=== PATIENT | female | born 1990 | race African-American/Black ===

== ENCOUNTER 2018-05-08 00:57 | Emergency (ER) | payer OTHER ==
[2018-05-08] MEDS ORDERED: METHYLPREDNISOLONE 125 MG INJ ONE (02:09)
--- NOTE | 2018-05-08 02:46 | ER ---
Nurse's Notes [facility] Name: Arianne Mendez Age: 28 yrs Sex: Female : 1990 Arrival Date: 05/08/2018 Time: 00:58 Bed 13 Private MD: Reilly Potts Diagnosis: Chest pain, unspecified Presentation: 05/08 01:08 Presenting complaint: Patient states: I have lupus and I'm hurting all over and have tl2 chest pain that started today. Transition of care: patient was not received from another setting of care. Onset of symptoms was May 07, 2018. Risk Assessment: Do you want to hurt yourself or someone else? Patient reports no desire to harm self or others. Initial Sepsis Screen: Does the patient meet any 2 criteria? No. Patient's initial sepsis screen is negative. Does the patient have a suspected source of infection? No. Patient's initial sepsis screen is negative. Care prior to arrival: None. 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 - Social history:: Smoking status: Patient/guardian denies using tobacco. - Ebola Screening: : No symptoms or risks identified at this time. Screenin:12 Abuse screen: Denies threats or abuse. Nutritional screening: No deficits noted. tl2 Tuberculosis screening: No symptoms or risk factors identified. Fall Risk None identified. Assessment: 01:26 Also complains of no other symptoms. General: Appears in no apparent distress. tl1 uncomfortable, Behavior is calm, cooperative, appropriate for age. Pain: Complains of pain in anterior aspect of left upper chest Pain does not radiate. Pain began 1 day ago. Is intermittent. Neuro: Level of Consciousness is awake, alert, obeys commands, Oriented to person, place, time, situation. Cardiovascular: Reports chest pain, Denies lightheadedness, nausea, palpitations, shortness of breath, syncope, vomiting. Respiratory: Airway is patent Trachea midline Respiratory effort is even, unlabored, Breath sounds are clear bilaterally. GI: No signs and/or symptoms were reported involving the gastrointestinal system. Abdomen is non-distended, Bowel sounds present X 4 quads. : No signs and/or symptoms were reported regarding the genitourinary system. Musculoskeletal: Reports pain in generalized. 03:35 Reassessment: No changes from previously documented assessment. Patient and/or family tl1 updated on plan of care and expected duration. Pain level reassessed. Patient is alert, oriented x 3, equal unlabored respirations, skin warm/dry/pink. Patient states symptoms have not improved. Pt requested pain medication, ER physician notified; no new orders received prior to discharge. 03:38 Reassessment: Pt asked to speak with charge nurse regarding ER physician. Charge nurse tl1 spoke with patient and patients mother prior to discharge. Patient will follow up with ER director with any further complaints. Vital Signs: 01:11 BP 127 / 80; Pulse 95; Resp 18; Pulse Ox 99% on R/A; Weight 90.72 kg; Height 5 ft. 3 tl2 in. (160.02 cm); Pain 8/10; 02:08 BP 121 / 74; Pulse 80; Resp 16; Pulse Ox 99% on R/A; tl1 02:57 BP 119 / 71; Pulse 93; Resp 19; Temp 98.2; Pulse Ox 99% on R/A; Pain 8/10; tl1 01:11 Body Mass Index 35.43 (90.72 kg, 160.02 cm) tl2 ED Course: 00:58 Patient arrived in ED. ds1 00:58 Reilly Potts DO is Private Physician. ds1 01:09 Triage completed. tl2 01:11 Arm band placed on right wrist. tl2 01:12 Patient has correct armband on for positive identification. Placed in gown. Bed in low tl2 position. Call light in reach. Pulse ox on. NIBP on. 01:14 Daquan Beavers MD is Attending Physician. gs 01:24 Davina Gilman RN is Primary Nurse. tl1 01:24 No provider procedures requiring assistance completed. Inserted saline lock: 22 gauge tl1 in right antecubital area, using aseptic technique. Blood collected. Patient maintains SpO2 saturation greater than 95% on room air. 02:27 X-ray completed. Patient tolerated procedure well. 1 02:27 Patient moved to radiology via wheelchair. 1 02:28 Patient moved back from radiology. 1 02:29 XRAY Chest Pa And Lat (2 Views) In Process Unspecified. EDMS 03:37 IV discontinued, intact, bleeding controlled, No redness/swelling at site. Pressure tl1 dressing applied. Administered Medications: 02:05 Drug: SOLU-Medrol 60 mg Route: IVP; Site: right antecubital; tl2 03:38 Follow up: Response: No adverse reaction; No change in condition tl1 Outcome: 02:45 Discharge ordered by . 03:36 Discharged to home via wheelchair, with family. tl1 03:36 Condition: stable 03:36 Discharge instructions given to patient, family, Instructed on discharge instructions, follow up and referral plans. medication usage, Demonstrated understanding of instructions, follow-up care, medications, Prescriptions given X 1. 03:41 Patient left the ED. tl1 Signatures: Dispatcher [employer] EDMS Brandie Zepeda 1 Jennifer Kim 1 Davina Gilman RN RN tl1 Soraya Aranda RN RN tl2 Daquan Beavers MD MD
--- NOTE | 2018-05-08 02:46 | EDPHYS ---
Physician Documentation [facility] Name: Arianne Mendez Age: 28 yrs Sex: Female : 1990 Arrival Date: 05/08/2018 Time: 00:58 Bed 13 Private MD: Reilly Potts ED Physician Daquan Beavers HPI: 05/08 02:40 This 28 yrs old Black Female presents to ER via Ambulatory with complaints of Chest gs Pain, Lupus flare up. 02:40 The patient or guardian reports chest pain that is located primarily in the anterior gs chest wall, bilaterally. The pain does not radiate. Associated signs and symptoms: Pertinent negatives: abdominal pain, diaphoresis, near syncope, palpitations, shortness of breath, vomiting. The chest pain is described as sharp. Duration: The patient or guardian reports multiple episodes, that are intermittent, that wax and wane, with no pattern. Modifying factors: the symptoms are aggravated by movement, twisting torso. Severity of pain: At its worst the pain was mild in the emergency department the pain is unchanged. The patient has experienced similar episodes in the past, multiple times. 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 - Social history:: Smoking status: Patient/guardian denies using tobacco. - Ebola Screening: : No symptoms or risks identified at this time. ROS: 02:40 All other systems are negative. gs Exam: 02:40 Head/Face: Normocephalic, atraumatic. Eyes: Pupils equal round and reactive to light, gs extra-ocular motions intact. Lids and lashes normal. Conjunctiva and sclera are non-icteric and not injected. Cornea within normal limits. Periorbital areas with no swelling, redness, or edema. ENT: Nares patent. No nasal discharge, no septal abnormalities noted. Tympanic membranes are normal and external auditory canals are clear. Oropharynx with no redness, swelling, or masses, exudates, or evidence of obstruction, uvula midline. Mucous membranes moist. Neck: Trachea midline, no thyromegaly or masses palpated, and no cervical lymphadenopathy. Supple, full range of motion without nuchal rigidity, or vertebral point tenderness. No Meningismus. Chest/axilla: Normal chest wall appearance and motion. Nontender with no deformity. No lesions are appreciated. Cardiovascular: Regular rate and rhythm with a normal S1 and S2. No gallops, murmurs, or rubs. Normal PMI, no JVD. No pulse deficits. Respiratory: Lungs have equal breath sounds bilaterally, clear to auscultation and percussion. No rales, rhonchi or wheezes noted. No increased work of breathing, no retractions or nasal flaring. Abdomen/GI: Soft, non-tender, with normal bowel sounds. No distension or tympany. No guarding or rebound. No evidence of tenderness throughout. Back: No spinal tenderness. No costovertebral tenderness. Full range of motion. Skin: Warm, dry with normal turgor. Normal color with no rashes, no lesions, and no evidence of cellulitis. MS/ Extremity: Pulses equal, no cyanosis. Neurovascular intact. Full, normal range of motion. Neuro: Awake and alert, GCS 15, oriented to person, place, time, and situation. Cranial nerves II-XII grossly intact. Motor strength 5/5 in all extremities. Sensory grossly intact. Cerebellar exam normal. Normal gait. 02:40 Constitutional: The patient appears alert, awake. 02:40 ECG was reviewed by the Attending Physician. Vital Signs: 01:11 BP 127 / 80; Pulse 95; Resp 18; Pulse Ox 99% on R/A; Weight 90.72 kg; Height 5 ft. 3 tl2 in. (160.02 cm); Pain 8/10; 02:08 BP 121 / 74; Pulse 80; Resp 16; Pulse Ox 99% on R/A; tl1 02:57 BP 119 / 71; Pulse 93; Resp 19; Temp 98.2; Pulse Ox 99% on R/A; Pain 8/10; tl1 01:11 Body Mass Index 35.43 (90.72 kg, 160.02 cm) tl2 MDM: 02:00 Patient medically screened. gs 02:40 Differential diagnosis: chest wall pain. Differential diagnosis: pleurisy, lupus flare. gs Data reviewed: vital signs, nurses notes. Counseling: I had a detailed discussion with the patient and/or guardian regarding: the historical points, exam findings, and any diagnostic results supporting the discharge/admit diagnosis, the need for outpatient follow up. 05/08 02:01 Order name: XRAY Chest Pa And Lat (2 Views) 05/08 01:14 Order name: EKG; Complete Time: 01:14 05/08 01:14 Order name: EKG - Nurse/Tech; Complete Time: :25 EC:40 Rate is 86 beats/min. Rhythm is regular. [place] interval is normal. QRS interval is normal. gs T waves are Normal. No ST changes noted. Clinical impression: Abnormal EKG without significant change. Interpreted by me. Administered Medications: 02:05 Drug: SOLU-Medrol 60 mg Route: IVP; Site: right antecubital; tl2 03:38 Follow up: Response: No adverse reaction; No change in condition tl1 Disposition: 05/08/18 02:45 Discharged to Home. Impression: Chest pain, unspecified. - Condition is Stable. - Discharge Instructions: Nonspecific Chest Pain. - Prescriptions for Prednisone 20 mg Oral Tablet - take 1 tablet by ORAL route once daily for 5 days; 5 tablet. - Medication Reconciliation Form, Thank You Letter, Antibiotic Education, Prescription Opioid Use form. - Follow up: Private Physician; When: 2 - 3 days; Reason: Re-evaluation by your physician. Signatures: Dispatcher [employer] EDDavina Pickard RN RN tl1 Soraya Aranda RN RN tl2 Daquan Beavers MD MD Corrections: (The following items were deleted from the chart) 03:41 02:45 05/08/2018 02:45 Discharged to Home. Impression: Chest pain, unspecified. tl1 Condition is Stable. Forms are Medication Reconciliation Form, Thank You Letter, Antibiotic Education, Prescription Opioid Use. Follow up: Private Physician; When: 2 - 3 days; Reason: Re-evaluation by your physician.
[2018-05-08 03:53] VITALS: O2SAT 99
[2018-05-08 03:55] VITALS: BP 119/71; TEMP 98.2
--- NOTE | 2018-05-08 08:31 | RAD REPORT ---
EXAM DESCRIPTION: RAD - Chest Pa And Lat (2 Views) - 05/08/2018 2:32 am CLINICAL HISTORY: Chest pain, diffuse body pain, lupus COMPARISON: November 2015 chest exam TECHNIQUE: PA and lateral views of the chest were obtained. FINDINGS: The lungs are underinflated. Lung base atelectasis is present. Lung markings are accentuat ed by the shallow inspiration. Minimal interstitial edema or infiltrate could be masked. Mild failure could be masked. Heart size and vasculature within normal limits for the shallow inspiration. No p leural effusion or pneumothorax seen. No acute bony finding noted. No aortic abnormality. IMPRESSION: Shallow inspiration film showing bilateral lung base atelectasis. Mild interstitial edgar a or infiltrate can be masked in this setting.
--- NOTE | 2018-05-09 06:54 | EKG ---
Test Date: 2018-05-08 Test Time: 01:14:30 Patient Liaison: TL MEASUREMENT RESULTS: Intervals: Rate: 86 HI: 144 QRSD: 70 QT: 356 QTc: 426 [place]: P: 27 HI: 144 QRS: 26 T: 60 INTERPRETIVE STATEMENTS: Normal sinus rhythm Possible Left atrial enlargement Borderline ECG Compared to ECG 12/06/2015 18:56:02 No significant changes Electronically Signed On 05-09-18 06:51:21 CDT by Gage Christy
== END 2018-05-08 03:41 | disposition home or self-care (01) ==
LOC: ER 00:57
DX: R07.9 Chest pain, unspecified (principal); Z88.6 Allergy status to analgesic agent
CPT/HCPCS: 71046; 93005; 96374; 99284; J2930

== ENCOUNTER 2020-06-25 07:42 | Emergency (ER) | payer BC ==
--- OUTSIDE RECORDS SUMMARY | 2020-06-25 07:44 | XMS REPORT | Continuity of Care Document ---
:1990 Author Organization [facility] t Address [address] [place] [address] Care Team Providers Name Role Phone Pob, Lab Main Attending Clinician Unavailable Doctor Unassigned, Name Attending Clinician Unavailable Problems This patient has no known problems. Allergies, Adverse Reactions, Alerts This patient has no known allergies or adverse reactions. Medications This patient has no known medications. Procedures This patient has no known procedures. Encounters Start End Encounter Admission Attending Care Care Encounter Source Date/Time Date/Time Type Type Clinicians Facility Department ID 2020-02-07 2020-02-07 Life Claims Examiner Diya Lombardi [id number] 17:26:43 17:41:43 Visit Lab Main [place] [id number] [place] [id number] [place] [id number] [address] 2020-02-07 2020-02-07 Orders Doctor KEY [id number] 00:00:00 00:00:00 Only Unassigned, ZAN [id number] [place] [facility] [id number] 2019-11-02 2019-11-02 Life Claims Examiner Diya Lombardi [id number] 10:22:24 10:37:24 Visit Lab Main [place] [id number] [place] [id number] [place] [id number] [address] 2019-11-02 2019-11-02 Orders Doctor SHAHID [id number] 00:00:00 00:00:00 Only Unassigned, ZAN [id number] [place] [facility] [id number] Results This patient has no known results.
[2020-06-25 09:08] LABS: Absolute Lymphocytes (CBC) 1.6 K/uL (0.7-4.9); Basophils % 1.2 % (0-1.3); Hematocrit 33.7 % (36.0-45.0); Lymphocytes % 23.1 % (15.3-44.8); MPV 7.7 fL (7.6-11.3); RBC Red Blood Cell Count 4.95 M/uL (3.86-4.86)
[2020-06-25 09:17] LABS: BUN Blood Urea Nitrogen 12 mg/dL (7-18); Bicarbonate 26 mmol/L (21-32); Glucose Level 81 mg/dL (74-106); Sodium Level 141 mmol/L (136-145); Troponin (Emerg Dept Use Only) < 0.02 ng/mL (0.0-0.045)
[2020-06-25 10:25] LABS: Anisocytosis SLIGHT; Blood Morphology Comment NOTED (NOT SEEN); Hypochromasia 1+; Platelet Estimate ADEQ
--- NOTE | 2020-06-25 10:25 | ER ---
Nurse's Notes [facility] Name: Arianne Mendez Age: 30 yrs Sex: Female : 1990 Arrival Date: 06/25/2020 Time: 07:44 Bed 19 Private MD: Diagnosis: Hypertension Presentation: 06/25 07:54 Chief complaint: Patient states: pt states that she has been experience headaches and zb photosensitivity for the past couple of days. Her blood pressure has been elevated in the 150's systolic. hx of lupus and hypertension. denies n/v/d or chest pain. Coronavirus screen: At this time, the client does not indicate any symptoms associated with coronavirus-19. Ebola Screen: No symptoms or risks identified at this time. Initial Sepsis Screen: Does the patient meet any 2 criteria? No. Patient's initial sepsis screen is negative. Does the patient have a suspected source of infection? No. Patient's initial sepsis screen is negative. Risk Assessment: Do you want to hurt yourself or someone else? Patient reports no desire to harm self or others. Onset of symptoms was June 23, 2020. 07:54 Method Of Arrival: Ambulatory zb 07:54 Acuity: MADY 4 zb 08:14 Acuity: MADY 3 ph Triage Assessment: 08:10 General: Appears in no apparent distress. comfortable, Behavior is calm, cooperative, zb appropriate for age, Denies fever, feeling ill. Pain: Complains of pain in top of head Quality of pain is described as aching. EENT: No signs and/or symptoms were reported regarding the EENT system. Neuro: No deficits noted. Level of Consciousness is awake, alert, obeys commands, Oriented to person, place, time, situation. Cardiovascular: No deficits noted. Reports fatigue, Denies chest pain, diaphoresis, lightheadedness, nausea, palpitations, shortness of breath, syncope, vomiting. Respiratory: No deficits noted. Airway is patent Trachea midline Respiratory effort is even, unlabored, Respiratory pattern is regular. GI: No deficits noted. Abdomen is round. : No deficits noted. No signs and/or symptoms were reported regarding the genitourinary system. Derm: Skin is intact, Skin is pink, warm \T\ dry. Musculoskeletal: No deficits noted. Circulation, motion, and sensation intact. Historical: - Allergies: 08:08 Toradol; zb - Home Meds: 08:08 carvedilol 12.5 mg oral tab 2 times per day [Active]; zb - PMHx: 08:08 Lupus; zb - Immunization history:: Adult Immunizations up to date. - Social history:: Smoking status: Patient denies any tobacco usage or history of. - Family history:: not pertinent. - Hospitalizations: : No recent hospitalization is reported. Screenin:51 Abuse screen: Denies threats or abuse. Denies injuries from another. Nutritional zb screening: No deficits noted. Tuberculosis screening: Risk factors: None. Fall Risk None identified. Assessment: 08:10 Reassessment: no changes to triage note. zb 09:59 Reassessment: Patient appears in no apparent distress at this time. Patient and/or ph family updated on plan of care and expected duration. Pain level reassessed. Patient is alert, oriented x 3, equal unlabored respirations, skin warm/dry/pink. 10:33 Reassessment: Patient appears in no apparent distress at this time. Patient and/or ph family updated on plan of care and expected duration. Pain level reassessed. Patient is alert, oriented x 3, equal unlabored respirations, skin warm/dry/pink. Vital Signs: 07:54 BP 149 / 97; Pulse 108; Resp 18; Temp 97.7(O); Pulse Ox 100% on R/A; Weight 106.59 kg; zb Height 5 ft. 3 in. (160.02 cm); 08:49 BP 120 / 82; Pulse 83; Resp 18; Pulse Ox 100% on R/A; zb 09:59 BP 113 / 83; Pulse 89; Resp 18; Pulse Ox 100% on R/A; ph 10:33 BP 111 / 67; Pulse 88; Resp 16; Pulse Ox 100% on R/A; ph 07:54 Body Mass Index 41.63 (106.59 kg, 160.02 cm) zb ED Course: 07:44 Patient arrived in ED. ds1 07:50 Dyllan Pollack MD is Attending Physician. rn 07:54 Nikki Melara RN is Primary Nurse. zb 08:03 Triage completed. zb 08:50 No provider procedures requiring assistance completed. Inserted saline lock: 22 gauge zb in right antecubital area, using aseptic technique. 08:50 Patient has correct armband on for positive identification. Bed in low position. Call zb light in reach. Side rails up X 1. Adult w/ patient. Pulse ox on. NIBP on. Door closed. Noise minimized. Warm blanket given. Head of bed lowered. 08:53 Arm band placed on Patient placed in an exam room, on a stretcher, on environmental monitoring technician, zb on pulse oximetry. EKG completed in triage. Results shown to MD. 10:44 IV discontinued, intact, bleeding controlled, No redness/swelling at site. Pressure ph dressing applied. Administered Medications: No medications were administered Outcome: 10:25 Discharge ordered by MD. rn 10:44 Discharged to home ambulatory, with family. ph 10:44 Condition: good 10:44 Discharge instructions given to patient, family, Instructed on discharge instructions, follow up and referral plans. Demonstrated understanding of instructions, follow-up care. 10:45 Patient left the ED. ph Signatures: Jennifer Kim ds1 Dyllan Pollack MD MD rn Hall, Patricia, RN RN Nikki Berger RN RN neha
--- NOTE | 2020-06-25 10:25 | EDPHYS ---
Physician Documentation [facility] Name: Arianne Mendez Age: 30 yrs Sex: Female : 1990 Arrival Date: 06/25/2020 Time: 07:44 Bed 19 Private MD: ED Physician Dyllan Pollack HPI: 06/25 09:03 This 30 yrs old Black Female presents to ER via Ambulatory with complaints of High rn Blood Pressure. 09:03 The patient has elevated blood pressure and discovered this at home. rn 10:23 Onset: The symptoms/episode began/occurred at an unknown time. Modifying factors: The rn symptoms are aggravated by discontinuation of meds. Severity of symptoms: At its worst the blood pressure was moderate, in the emergency department the blood pressure is improved. The patient has experienced similar episodes in the past. Reports not taking her BP meds as prescribed, reports mild headache, took before coming in, and now better. No focal neuro complaints/blurred vision. . Historical: - Allergies: 08:08 Toradol; zb - Home Meds: 08:08 carvedilol 12.5 mg oral tab 2 times per day [Active]; zb - PMHx: 08:08 Lupus; zb - Immunization history:: Adult Immunizations up to date. - Social history:: Smoking status: Patient denies any tobacco usage or history of. - Family history:: not pertinent. - Hospitalizations: : No recent hospitalization is reported. ROS: 10:23 Constitutional: Negative for fever, chills, and weight loss, Eyes: Negative for injury, rn pain, redness, and discharge, Neck: Negative for injury, pain, and swelling, Cardiovascular: Negative for chest pain, palpitations, and edema, Respiratory: Negative for shortness of breath, cough, wheezing, and pleuritic chest pain, Abdomen/GI: Negative for abdominal pain, nausea, vomiting, diarrhea, and constipation, MS/Extremity: Negative for injury and deformity, Skin: Negative for injury, rash, and discoloration, Neuro: Negative for weakness, numbness, tingling, and seizure. Exam: 10:22 ECG was reviewed by the Attending Physician. rn 10:23 Constitutional: This is a well developed, well nourished patient who is awake, alert, rn and in no acute distress. Head/Face: Normocephalic, atraumatic. Eyes: Pupils equal round and reactive to light, extra-ocular motions intact. Lids and lashes normal. Cornea within normal limits. Periorbital areas with no swelling, redness, or edema. Cardiovascular: Regular rate and rhythm . No pulse deficits. Respiratory: No increased work of breathing, no retractions or nasal flaring. Abdomen/GI: soft, non-tender Skin: Warm, dry with normal turgor. Normal color with no rashes, no lesions, and no evidence of cellulitis. MS/ Extremity: Pulses equal, no cyanosis. Neurovascular intact. Full, normal range of motion. Equal circumference. Neuro: Awake and alert, GCS 15, oriented to person, place, time, and situation. Cranial nerves II-XII grossly intact. Motor strength 5/5 in all extremities. Sensory grossly intact. Cerebellar exam normal. Vital Signs: 07:54 BP 149 / 97; Pulse 108; Resp 18; Temp 97.7(O); Pulse Ox 100% on R/A; Weight 106.59 kg; zb Height 5 ft. 3 in. (160.02 cm); 08:49 BP 120 / 82; Pulse 83; Resp 18; Pulse Ox 100% on R/A; zb 09:59 BP 113 / 83; Pulse 89; Resp 18; Pulse Ox 100% on R/A; ph 10:33 BP 111 / 67; Pulse 88; Resp 16; Pulse Ox 100% on R/A; ph 07:54 Body Mass Index 41.63 (106.59 kg, 160.02 cm) zb MDM: 07:50 Patient medically screened. rn 10:23 Differential diagnosis: hypertensive crisis, Malignant HTN. Data reviewed: vital signs, rn nurses notes, lab test result(s), EKG, and as a result, I will discharge patient. Counseling: I had a detailed discussion with the patient and/or guardian regarding: the historical points, exam findings, and any diagnostic results supporting the discharge/admit diagnosis, lab results, the need for outpatient follow up, to return to the emergency department if symptoms worsen or persist or if there are any questions or concerns that arise at home. Response to treatment: the patient's symptoms have markedly improved after treatment, and as a result, I will discharge patient. Special discussion: I discussed with the patient/guardian in detail that at this point there is no indication for admission to the hospital. It is understood, however, that if the symptoms persist or worsen the patient needs to return immediately for re-evaluation. 10:25 Counseling: I had a detailed discussion with the patient and/or guardian regarding: the rn presence of at least one elevated blood pressure reading (>120/80) during this emergency department visit. Special discussion: I have referred the patient to see his PCP for further evaluation of high blood pressure. 06/25 08:02 Order name: CBC with Diff rn 06/25 08: Order name: Basic Metabolic Panel; Complete Time: 10: rn 06/25 08:02 Order name: IV Start; Complete Time: 09: rn 06/25 08:02 Order name: Troponin (emerg Dept Use Only); Complete Time: : rn 06/25 08: Order name: EKG; Complete Time: 08: rn 06/25 10:25 Order name: Manual Differential EDMS 06/25 08: Order name: EKG - Nurse/Tech; Complete Time: : rn EC: Rate is 95 beats/min. Rhythm is regular. QRS [place] is Normal. ND interval is normal. QRS rn interval is normal. QT interval is normal. No Q waves. T waves are Normal. No ST changes noted. Clinical impression: Normal ECG. Interpreted by me. Reviewed by me. Administered Medications: No medications were administered Disposition: 06/25/20 10:25 Discharged to Home. Impression: Hypertension. - Condition is Stable. - Discharge Instructions: Hypertension. - Medication Reconciliation Form, Thank You Letter, Antibiotic Education, Prescription Opioid Use, Work release form form. - Follow up: Private Physician; When: As needed; Reason: Recheck today's complaints, Re-evaluation by your physician. - Problem is an ongoing problem. - Symptoms have improved. Signatures: Dispatcher [employer] EDMS Dyllan Pollack MD MD rn Hall, Patricia, RN RN ph Brown, Zipporah, RN RN neha Corrections: (The following items were deleted from the chart) 10:45 10:25 06/25/2020 10:25 Discharged to Home. Impression: Hypertension. Condition is ph Stable. Forms are Medication Reconciliation Form, Thank You Letter, Antibiotic Education, Prescription Opioid Use. Follow up: Private Physician; When: As needed; Reason: Recheck today's complaints, Re-evaluation by your physician. Problem is an ongoing problem. Symptoms have improved. rn
[2020-06-25 10:58] VITALS: TEMP 97.7; O2SAT 100
[2020-06-25 11:06] VITALS: BP 111/67
--- NOTE | 2020-06-27 07:37 | EKG ---
Test Date: 2020-06-25 Test Time: 08:23:34 Marina Porter: ARIANA MEASUREMENT RESULTS: Intervals: Rate: 95 VT: 136 QRSD: 64 QT: 340 QTc: 427 [place]: P: 28 VT: 136 QRS: 12 T: 49 INTERPRETIVE STATEMENTS: Normal sinus rhythm Normal ECG Compared to ECG 05/08/2018 01:14:30 No significant changes Electronically Signed On 06-27-20 07:32:53 [address] REPORTER by Gage Christy
== END 2020-06-25 10:45 | disposition home or self-care (01) ==
LOC: ER 07:42
DX: I10 Essential (primary) hypertension (principal); Z88.6 Allergy status to analgesic agent
CPT/HCPCS: 36415; 80048; 84484; 85025; 93005; 99283

== ENCOUNTER 2020-08-05 08:40 | Day surgery (SDC) | payer BC ==
--- OUTSIDE RECORDS SUMMARY | 2020-08-05 09:13 | XMS REPORT | Continuity of Care Document ---
:1990 Author Organization [facility] t Address [address] [place] [address] Care Team Providers Name Role Phone Pob, [...] Type Clinicians Facility Department ID 2020-02-07 2020-02-07 Reliability Engineer Diya Lombardi [id number] [id number] 17:26:43 17:41:43 Visit Lab Main Rena Lara [id number] [place] [id number] [phone] [address] 2020-02-07 2020-02-07 Orders Doctor KEY 1.2.840.114 [id number] 00:00:00 00:00:00 Only Unassigned, ZAN [id number] [place] [facility] [id number] 2019-11-02 2019-11-02 Reliability Engineer Diya Lombardi 1.2.840.114 [id number] 10:22:24 10:37:24 Visit Lab Main Rena Lara [id number] [place] [id number] [place] [phone] [address] 2019-11-02 2019-11-02 Orders Doctor KEY 1.2.840.114 [id number] 00:00:00 00:00:00 Only Unassigned, ZAN [id number] [place] [facility] [id number] Results This patient has no known results.
--- OUTSIDE RECORDS SUMMARY | 2020-08-05 09:27 | XMS REPORT | Continuity of Care Document ---
:1990 Author Organization [facility] t Address [address] [place] [address] Care Team Providers Name Role Phone Pob, [...] Type Clinicians Facility Department ID 2020-02-07 2020-02-07 Superintendent Transmission Diya Lombardi 1.2.840.114 [id number] 17:26:43 17:41:43 Visit Lab Main [place] [id number] [place] [id number] [facility] [phone] [address] 2020-02-07 2020-02-07 Orders Doctor KEY 1.2.840.114 [id number] 00:00:00 00:00:00 Only Unassigned, ZAN [id number] [place] [employer] [facility] [id number] 2019-11-02 2019-11-02 Superintendent Transmission Diya Lombardi 1.2.840.114 [id number] 10:22:24 10:37:24 Visit Lab Main [place] [id number] [place] [id number] [place] [phone] [address] 2019-11-02 2019-11-02 Orders Doctor KEY 1.2.840.114 [id number] 00:00:00 00:00:00 Only Unassigned, ZAN [id number] [employer] [facility] [id number] Results This patient has no known results.
[2020-08-05 09:30] VITALS: BMI 42.5
[2020-08-05 09:31] LABS: Protime INR 0.97
[2020-08-05] MEDS ORDERED: NA CHLORIDE 0.9% 1,000 ML ONE (10:18)
[2020-08-05] MEDS ORDERED: NALOXONE 0.4 MG/ML VIAL ONE (10:30)
[2020-08-05] MEDS ORDERED: MIDAZOLAM HCL 2 MG/2 ML INJ ONE (10:30)
[2020-08-05] MEDS ORDERED: FENTANYL CITR 100 MCG/2 ML ONE (10:30)
[2020-08-05] MEDS ORDERED: FLUMAZENIL 0.1 MG/ML (5 mL VIAL) IV ONE (10:30)
--- NOTE | 2020-08-05 13:21 | RAD REPORT ---
EXAM DESCRIPTION: CT - Renal Biopsy CT - 08/05/2020 11:41 am CLINICAL HISTORY: Nephritis, hypertension TECHNIQUE: The risks, benefits alternatives to the procedure were explained to the patient and infor med consent obtained Conscious sedation was performed for approximately 30 minutes. A nurse monitored vital signs througho ut the examination 3 milligrams Versed and 75 micrograms fentanyl administered intravenously All CT scans are performed using dose optimization technique as appropriate and may include automated exposure control or mA/KV adjustment according to patient size. The skin, subcutaneous tissue were anesthetized Lidocaine. Under CT guidance a 17 gauge needle was placed into the posterior aspect of the lower pole of the rig ht kidney. An 18 gauge needle was then placed through this and 2 two centimeter core specimens obtain ed and given to pathology The post biopsy images do not demonstrate a significant hematoma. Patient experienced no immediate complication IMPRESSION: Core biopsies of the right kidney
[2020-08-05 14:47] VITALS: BP 125/75; O2SAT 99
[2020-08-05 14:50] VITALS: TEMP 99.7
== END 2020-08-05 14:30 | disposition home or self-care (01) ==
LOC: DS 08:40
PROVIDERS: ATTEND Internal Medicine Nephrology
DX: M32.14 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 lupus erythematosus (principal)
CPT/HCPCS: 36415; 85610; 88300; 85730; 50200; J2250; J3010; J7030; J2310

== ENCOUNTER 2021-10-28 14:45 | Inpatient (IN) | payer BC ==
--- OUTSIDE RECORDS SUMMARY | 2021-10-28 15:35 | XMS REPORT | Continuity of Care Document ---
:1990 Author Organization [facility] t Address [address] [place] [address] Care Team Providers Name Role Phone Rubia Joseph DO Primary Care Physician Pob, Lab Main Attending Clinician Unavailable Rubia Joseph DO Attending Clinician Rubia JOSEPH Attending Clinician Unavailable Doctor Unassigned, Name Attending Clinician Unavailable JOHNNA ROLLE Attending Clinician Unavailable BRADEN Attending Clinician Unavailable UNKNOWN Attending Clinician Unavailable WILLIE Admitting Clinician Unavailable BRADEN Admitting Clinician Unavailable Payers Payer Name Policy Type Policy Number Effective Date Expiration Date Tami tran [employer] [facility] [id number] 2014 00:00:00 Problems Condition Condition Condition Status Onset Resolution Last Treating Co mments Source Name Details Category Date Date Treatment Clinician Date Lupus Lupus Disease Active [facility] [place] [facility] Allergies, Adverse Reactions, Alerts Allergy Allergy Status Severity Reaction(s) Onset Inactive Treating Comm ents Source Name Type Date Date Clinician Meloxica Propensi Active Unknown - Uni vers m ty to See comments 7- ity of adverse 00:00: [place] reaction 00 Medical s Branch Ketorola Propensi Active Unknown - Uni vers c ty to See comments 7- ity of adverse 00:00: [place] reaction 00 Medical s Branch MELOXICA DRUG Active Unknown-Cmnt Un yasmani M INGREDI 03-12 ity of 00:00: [place] 00 Medical Branch KETOROLA DRUG Active Unknown-Cmnt Un yasmani C INGREDI 03-12 ity of 00:00: [place] 00 Medical Branch Social History Social Habit Start Date Stop Date Quantity Comments Source Tobacco use and 2017-03-12 2017-03-12 Never used [facility] exposure 00:00:00 00:00:00 Medical Branch Sex Ass[birth year] [facility] 00:00:00 00:00:00 Medical Branch Smoking Status Start Date Stop Date Source Never smoker [facility] Branch Medications Ordered Filled Start Stop Current Ordering Indication Dosage Frequency Signature Comments Components Source Medication Medication Date Date Medication? Clinician (SIG) Name Name predniSONE 2020-0 Yes 5mg Take 5 mg Un yasmani 5 mg tablet 2-24 by mouth ity of 18:51: daily. [address] Branch mycophenola 2020-0 Yes 500mg Take 500 U nivers te mofetil 2-24 mg by ity of (CELLCEPT) 18:51: [place] 500 [place] 16 (two) Medical tablet times Branch daily. carvedilol 2020-0 Yes 12.5mg Take 12.5 Univers 12.5 mg 2-24 mg by ity of tablet 18:51: mouth 2 [place] [address] (two) Medical times Branch daily with meals. predniSONE 2020-0 Yes 5mg Take 5 mg Un yasmani 5 mg tablet 2-24 by mouth ity of 18:51: daily. [address] Branch mycophenola 2020-0 Yes 500mg Take 500 U nivers te mofetil 2-24 mg by ity of (CELLCEPT) 18:51: mouth [place] 500 mg 16 (two) Medical tablet times Branch daily. carvedilol 2020-0 Yes 12.5mg Take 12.5 Univers 12.5 mg 2-24 mg by ity of tablet 18:51: mouth 2 [place] 16 (two) Medical times Branch daily with meals. hydrOXYzine 2020-0 Yes [id number] 25mg Take 1 Univers 25 mg 2-24 tablet by ity of tablet 00:00: mouth [place] 00 every 6 Medical (six) Branch hours as needed for Itching. hydrOXYzine 2020-0 Yes [id number] 25mg Take 1 Univers 25 mg 2-24 tablet by ity of tablet 00:00: mouth [place] 00 every 6 Medical (six) Branch hours as needed for Itching. TRI-SPRINTE Yes Univer s C 5-30 ity of 0.18/0.215/ 00:00: [place] 0.25 mg-35 00 Medical mcg (28) Branch per tablet TRI-SPRINTE Yes Univer s C 5-30 ity of 0.18/0.215/ 00:00: [place] 0.25 mg-35 00 Medical mcg (28) Branch per tablet Procedures Procedure Date / Time Performed Performing Clinician [facility] e PHYSICIAN ORDERS 2021-09-02 06:01:00 Doctor Unassigned, No Unive [facility] Encounters Start End Encounter Admission Attending Care Care Encounter Source Date/Time Date/Time Type Type Clinicians Facility Department ID 2021-09-02 2021-09-02 Quality Consultant Harjit, Diya Lab Main [facility] 1.2.8 [id number] Univers 16:15:00 16:30:00 Visit Grace Joseph [id number] ity of [place] [id number] [place] [phone] La dical NAL 353 Branch [facility] 2021-09-02 2021-09-02 Outpatient R [facility] [id number] Univers 16:15:00 16:15:00 [id number] ity of [facility] 2021-09-02 2021-09-02 Outpatient R OPAL [facility] [id number] Univers 16:15:00 16:15:00 GRACE ity of [facility] 2021-09-02 2021-09-02 Orders Doctor KEY [id number] [id number] Univers 00:00:00 00:00:00 Only UnassignedZAN [id number] [facility] [id number] [place] [phone] [place] [address] Branch 2021-04-04 2021-04-11 Inpatient JACK ROLLE [facility] MED [id number] [facility] 23:38:00 16:51:00 2021-04-03 2021-04-04 Inpatient E DEMLA, [facility] MED [id number] [facility] 21:43:00 23:00:00 [place] 2021-03-19 2021-03-19 Outpatient R [facility] [id number] Univers 17:15:00 17:15:00 [id number] [facility] 2021-03-19 2021-03-19 Outpatient R OPAL, [facility] [id number] Univers 17:15:00 17:15:00 GRACE [facility] 2021-01-22 2021-01-22 Outpatient R [facility] [id number] Univers 12:45:00 12:45:00 [id number] [facility] 2021-01-22 2021-01-22 Outpatient R OPAL, [facility] [id number] Univers 12:45:00 [facility]:45:[facility] 2021-01-21 Outpatient [facility] [id number] Univers 11:30:00 11:30:00 [id number] [facility] 2021-01-21 2021-01-21 Outpatient R OPAL, [facility] [id number] Univers 11:30:00 11:30:00 [facility] 2020-02-07 2020-02-07 Quality Consultant Diya Lombardi [facility] 1.2.840.114 [id number] 17:26:43 17:41:43 Visit Lab Main [place] [id number] [place] [id number] [place] [id number] [address] 2020-02-07 2020-02-07 Outpatient R [facility] [id number] Univers 17:00:00 17:00:00 [id number] [facility] 2020-02-07 2020-02-07 [facility] [id number] Univers 17:00:00 17:00:00 [facility] 2020-02-07 2020-02-07 Orders Doctor KEY 1.2.840.114 [id number] 00:00:00 00:00:00 Only Unassigned, ZAN [id number] [facility] [id number] 2019-11-02 2019-11-02 Quality Consultant Diya Lombardi [facility] 1.2.840.114 [id number] 10:22:24 10:37:24 Visit Lab Main [place] [id number] [place] [id number] [place] [id number] [address] 2019-11-02 2019-11-02 Outpatient R [facility] [id number] Univers 10:15:00 10:15:00 [id number] [facility] 2019-11-02 2019-11-02 [facility] [id number] Univers 10:15:00 10:15:00 GRACE [facility] 2019-11-02 2019-11-02 Orders Doctor SHAHID 1.2.840.114 [id number] 00:00:00 00:00:00 Only Unassigned, ZAN [id number] [place] [facility] [id number] [id number] 2019-10-16 2019-10-16 Outpatient R [facility] [id number] Univers 18:30:00 18:30:00 [id number] [facility] 2019-10-16 2019-10-16 Outpatient R UNKNOWN, [facility] [id number] Univers 18:30:00 18:30:00 ATTENDING [facility] Results This patient has no known results.
[2021-10-28 15:53] VITALS: BMI 33.6
[2021-10-28] MEDS ORDERED: ONDANSETRON 4 MG/2 ML VIAL IV PRN (17:30)
[2021-10-28] MEDS: NA CHLORIDE 0.9% 1,000 ML IV SCH (17:55)
[2021-10-28 19:32] LABS: UR PROTEIN 358.6 mg/dL (<11.9); Urine Protein/Creatinine Ratio 3.81 ratio (<0.15)
[2021-10-28] MEDS: ACETAMINOPHEN 500 MG TAB PO PRN (22:20)
[2021-10-29 04:09] LABS: Absolute Lymphocytes (CBC) 0.3 K/uL (0.7-4.9); Hematocrit 24.1 % (36.0-45.0); Lymphocytes % 6.7 % (15.3-44.8); MPV 8.2 fL (7.6-11.3); RBC Red Blood Cell Count 3.52 M/uL (3.86-4.86)
[2021-10-29 04:53] LABS: AST/SGOT 6 U/L (15-37); Albumin 2.4 g/dL (3.4-5.0); Alkaline Phosphatase 55 U/L (45-117); BUN Blood Urea Nitrogen 51 mg/dL (7-18); Bilirubin Total 0.2 mg/dL (0.2-1.0); Glucose Level 124 mg/dL (74-106); Magnesium 2.2 mg/dL (1.8-2.4); Phosphorus 5.6 mg/dL (2.5-4.9); Potassium 5.1 mmol/L (3.5-5.1); Protein, Total 6.3 g/dL (6.4-8.2); Sodium Level 139 mmol/L (136-145); Uric Acid 9.8 mg/dL (2.6-6.0)
[2021-10-29 04:57] LABS: Anisocytosis 1+; Blood Morphology Comment NOTED (NOT SEEN); Ovalocytes 3+; Platelet Estimate ADEQ
[2021-10-29 04:58] LABS: ALT/SGPT < 10 U/L (12-78); Burr Cells 3+; Hypochromasia 2+
[2021-10-29 04:59] LABS: Bicarbonate 12 mmol/L (21-32)
[2021-10-29] MEDS: NA CHLORIDE 0.9% 1,000 ML IV SCH (06:01)
--- NOTE | 2021-10-29 10:34 | P.CNS ---
Date of Consult: 10/29/21 Reason for Consult: HERMILA/ CKD Requesting Physician: Tracy Blankenship Chief Complaint: Abdominal pain/ Diarrhea History of Present Illness: 31 yo BF SLE, CKD presented to the [place] ER with 2-3 months of moderate, persistent diarrhea 3-6 times per day with associated abdominal pain. She was still able to go to work and thought the symptoms were due to her mycophenolate. She went to the ER because her symptoms along with fatigue and malaise were much worse over the past couple of days. No NSAIDs. Less urine output. Anorexia. Allergies No Known Drug Allergies Allergy (Verified 03/12/15 23:34) Unknown No Known Allergies Allergy (Uncoded 12/07/15 01:07) Unknown Home medications list reviewed: Yes Home Medications: Amlodipine [Norvasc] 5 mg PO DAILY 10/28/21 Mycophenolate Mofetil [Cellcept] 3 tab PO BID 10/28/21 Norgestimate-Ethinyl Estradiol [Tri-Sprintec Tablet] 1 each PO DAILY 10/28/21 Olmesartan/Hydrochlorothiazide [Olmesartan-Hctz 40-12.5 mg Tab] 1 each PO DAILY 10/28/21 carvediloL [Coreg] 25 mg PO BID 10/28/21 predniSONE [Deltasone] 5 mg PO DAILY 10/28/21 - Past Medical/Surgical History Diabetic: No -: Lupus -: HTN -: Lupus nephritis -: anemia -: oral surgery -: dialysis catheter and removal - Family History Brother Medical History: Other (see notes) Notes: celiac disease. brain malformation. crohns - Social History Smoking Status: Never smoker Alcohol use: No CD- Drugs: No Caffeine use: Yes Place of Residence: Home Review of Systems 10-point ROS is otherwise unremarkable General: Weakness, Malaise Gastrointestinal: Abdominal Pain, Diarrhea Physical Examination Temp Pulse Resp BP Pulse Ox 97 F 82 20 146/97 H 100 10/29/21 08:00 10/29/21 08:00 10/29/21 08:00 10/29/21 08:00 10/29/21 08:00 General: In no apparent distress, Oriented x3, Cooperative HEENT: Atraumatic Neck: Supple Respiratory: Clear to auscultation bilaterally Cardiovascular: No edema, Regular rate/rhythm Gastrointestinal: Soft and benign, Non-distended Musculoskeletal: No clubbing, No contractures Integumentary: No rashes, No cyanosis Neurological: Normal speech Laboratory Data (last 24 hrs) 10/29/21 03:33: Sodium 139, Potassium 5.1, BUN 51 H, Creatinine 4.75 H, Glucose 124 H, Uric Acid 9.8 H D, Phosphorus 5.6 H, Magnesium 2.2, Total Bilirubin 0.2, AST 6 L, ALT < 10 L, Alkaline Phosphatase 55 10/29/21 03:33: WBC 4.30, Hgb 7.3 L, Hct 24.1 L, Plt Count 253 Imagings Data: CT Abd/Pelvis [id number]: No acute intra-abdominal abnormality. Bulky fibroid uterus. Conclusions/Impression: HERMILA likely due to hypovolemia CKD III with proteinuria Lupus Nephritis -No NSAIDs -Change IVF to LR@100 Hyperkalemia -Continue IVF Acidosis -Start oral bicarb QID HTN with CKD -Start Coreg BID -Start Amlodipine Moderate malnutrition -Advance nutrition as tolerated -Consider Nepro Anemia in chronic illness Iron deficiency -Give Retacit -Check anemia labs Thank you kindly for the consultation.
--- NOTE | 2021-10-29 10:40 | P.HP ---
Certification for Inpatient Patient admitted to: Inpatient With expected LOS: >2 Midnights Patient will require the following post-hospital care: None Practitioner: I am a practitioner with admitting privileges, knowledge of patient current condition, hospital course, and medical plan of care. Services: Services provided to patient in accordance with Admission requirements found in Title 42 Section 412.3 of the Code of Federal Regulations Patient History Date of Service: 10/28/21 Reason for admission: Acute on chronic kidney disease/lupus nephritis History of Present Illness: Patient is a 31-year-old female with a history of systemic lupus erythematous. She came into the emergency room at [place] feeling dehydrated. Her lab work-up revealed acute on chronic renal failure. Patient lupus has been poorly controlled. She has not been seeing her radio assembler. She has been on CellCept. She has not had her levels checked. She was transferred to our hospital for further work-up. We will consult nephrology. Continue with IV steroids and repeat renal function. Allergies No Known Drug Allergies Allergy (Verified 03/12/15 23:34) Unknown No Known Allergies Allergy (Uncoded 12/07/15 01:07) Unknown Home Medications: Amlodipine [Norvasc] 5 mg PO DAILY 10/28/21 Mycophenolate Mofetil [Cellcept] 3 tab PO BID 10/28/21 Norgestimate-Ethinyl Estradiol [Tri-Sprintec Tablet] 1 each PO DAILY 10/28/21 Olmesartan/Hydrochlorothiazide [Olmesartan-Hctz 40-12.5 mg Tab] 1 each PO DAILY 10/28/21 carvediloL [Coreg] 25 mg PO BID 10/28/21 predniSONE [Deltasone] 5 mg PO DAILY 10/28/21 - Past Medical/Surgical History Has patient received pneumonia vaccine in the past: No Diabetic: No -: Lupus -: HTN -: Lupus nephritis -: anemia -: oral surgery -: dialysis catheter and removal - Family History Brother Medical History: Other (see notes) Notes: celiac disease. brain malformation. crohns - Social History Smoking Status: Never smoker Alcohol use: No CD- Drugs: No Caffeine use: Yes Place of Residence: Home Review of Systems 10-point ROS is otherwise unremarkable Physical Examination - Vital Signs Temperature: 97 F Blood Pressure: 146/97 Pulse: 82 Respirations: 20 Pulse Ox (%): 100 - Physical Exam General: Alert, In no apparent distress, Oriented x3 HEENT: Atraumatic, PERRLA, Mucous membr. moist/pink, EOMI, Sclerae nonicteric Neck: Supple, 2+ carotid pulse no bruit, No LAD, Without JVD or thyroid abnormality Respiratory: Clear to auscultation bilaterally, Normal air movement Cardiovascular: Regular rate/rhythm, Normal S1 S2, No murmurs Gastrointestinal: Normal bowel sounds, Soft and benign, Non-distended, No tenderness Musculoskeletal: No clubbing, No swelling, No tenderness Integumentary: No rashes Neurological: Normal gait, Normal speech, Normal strength at 5/5 x4 extr, Normal tone, Sensation intact, Cranial nerves 3-12 intact Lymphatics: No axilla or inguinal lymphadenopathy - Studies Laboratory Data (last 24 hrs) 10/29/21 03:33: Sodium 139, Potassium 5.1, BUN 51 H, Creatinine 4.75 H, Glucose 124 H, Uric Acid 9.8 H D, Phosphorus 5.6 H, Magnesium 2.2, Total Bilirubin 0.2, AST 6 L, ALT < 10 L, Alkaline Phosphatase 55 10/29/21 03:33: WBC 4.30, Hgb 7.3 L, Hct 24.1 L, Plt Count 253 Assessment & Plan - Problems (Diagnosis) (1) SLE (systemic lupus erythematosus related syndrome) Current Visit: Yes Status: Acute (2) Lupus nephritis Current Visit: Yes Status: Acute (3) Proteinuria Current Visit: Yes Status: Acute (4) Rash Current Visit: Yes Status: Acute - Plan Plan: 1. Continue with IV fluids 2. Continue with monitoring renal function closely 3. Check CellCept level 4. Monitor proteinuria 5. UA pending 6. GI DVT prophylaxis Discharge Plan: Home Plan to discharge in: Greater than 2 days - Advance Directives Does patient have a Living Will: No Does patient have a Durable POA for Healthcare: No - Code Status/Comfort Care Code Status Assessed: Yes Code Status: Full Code Critical Care: No Time Spent Managing PTS Care (In Minutes): 40
[2021-10-29] MEDS ORDERED: D5W 1,000 ML with NA BICARB 8.4% 150 MEQ IV SCH ×2 (11:00)
[2021-10-29] MEDS: Ringers Lactate 1,000 ML IV SCH ×2 (11:17→17:40)
[2021-10-29] MEDS: SODIUM BICARB 325 MG TAB PO SCH ×4 (11:18→20:58)
[2021-10-29] MEDS: ACETAMINOPHEN 500 MG TAB PO PRN (16:05)
[2021-10-29] MEDS ORDERED: Ringers Lactate 1,000 ML IV SCH (19:28)
[2021-10-29] MEDS ORDERED: METHYLPREDNISOLONE 125 MG INJ IV ONE (19:29)
[2021-10-29] MEDS: carvediloL 6.25 MG TAB PO SCH (20:57)
[2021-10-29] MEDS: FAMOTIDINE 20 MG/2 ML VIAL IV SCH (21:00)
[2021-10-29] MEDS ORDERED: SODIUM BICARB 325 MG TAB PO SCH (21:00)
[2021-10-29] MEDS: Levofloxacin 250mg IV 250 MG/50 ML BAG IV SCH (22:02)
[2021-10-30 06:11] LABS: Absolute Lymphocytes (CBC) 0.3 K/uL (0.7-4.9); Hematocrit 24.9 % (36.0-45.0); Lymphocytes % 3.5 % (15.3-44.8); MPV 8.8 fL (7.6-11.3); RBC Red Blood Cell Count 3.63 M/uL (3.86-4.86)
[2021-10-30 06:59] LABS: UR PROTEIN 242.1 mg/dL (<11.9)
[2021-10-30 07:02] LABS: Albumin 2.5 g/dL (3.4-5.0); Bilirubin Total 0.1 mg/dL (0.2-1.0); Folic Acid, (Folate) 8.8 ng/mL (3.1-17.5); Potassium 5.4 mmol/L (3.5-5.1); Protein, Total 5.9 g/dL (6.4-8.2)
[2021-10-30 07:26] LABS: White Blood Cell Scan OK (OK)
[2021-10-30 07:27] LABS: Anisocytosis 1+; Blood Morphology Comment NOTED (NOT SEEN); Hypochromasia 2+; Ovalocytes 2+; Platelet Estimate ADEQ; Teardrop Cell 1+
[2021-10-30] MEDS ORDERED: AMLODIPINE 5 MG TAB PO SCH (09:00)
[2021-10-30] MEDS ORDERED: EPOETIN ALFA-EPBX 10,000 UNIT/ML VIAL SQ SCH (09:00)
[2021-10-30] MEDS: carvediloL 6.25 MG TAB PO SCH ×2 (09:28→20:27)
[2021-10-30] MEDS: CALCITROL 0.25 MCG CAP PO SCH (09:29)
[2021-10-30] MEDS: VITAMIN D 5,000 UNIT CAP PO SCH (09:29)
[2021-10-30] MEDS: SODIUM BICARB 325 MG TAB PO SCH ×4 (09:30→20:29)
[2021-10-30] MEDS: FAMOTIDINE 20 MG/2 ML VIAL IV SCH (09:30)
[2021-10-30 11:28] LABS: Urine Appearance CLEAR (Clear); Urine Bilirubin NEGATIVE (Negative); Urine Blood 1+ (Negative); Urine Color YELLOW (Yellow); Urine Glucose NEGATIVE (Negative); Urine Protein 3+ (Negative); Urine Specific Gravity 1.015 (1.005-1.030); Urine Urobilinogen 0.2 mg/dL (0.2-1.0); Urine pH 6.5 (5.0-7.0)
[2021-10-30] MEDS: D5W 1,000 ML with NA BICARB 8.4% 100 MEQ IV SCH ×2 (11:48)
--- NOTE | 2021-10-30 12:28 | P.PN ---
Subjective Date of Service: 10/29/21 Subjective: No new changes, No C/O voiced, Improving Review of Systems 10-point ROS is otherwise unremarkable Physical Examination - Vital Signs Temperature: 97 F Blood Pressure: 146/97 Pulse: 82 Respirations: 20 Pulse Ox (%): 100 - Physical Exam General: Alert, In no apparent distress, Oriented x3 HEENT: Atraumatic, PERRLA, EOMI Neck: Supple, JVD not distended Respiratory: Clear to auscultation bilaterally, Normal air movement Cardiovascular: Regular rate/rhythm, Normal S1 S2 Gastrointestinal: Normal bowel sounds, No tenderness Musculoskeletal: No tenderness Integumentary: No rashes Neurological: Normal speech, Normal tone, Normal affect Lymphatics: No axilla or inguinal lymphadenopathy - Studies Laboratory Data (last 24 hrs) 10/30/21 05:32: Sodium 139, Potassium 5.4 H, BUN 48 H, Creatinine 4.46 H, Glucose 121 H, Uric Acid 9.0 H, Total Bilirubin 0.1 L, AST 11 L, ALT 12, Alkaline Phosphatase 53 10/30/21 05:32: WBC 7.90 D, Hgb 7.7 L, Hct 24.9 L, Plt Count 243 Medications List Reviewed: Yes Assessment & Plan - Problems (Diagnosis) (1) SLE (systemic lupus erythematosus related syndrome) Current Visit: Yes Status: Acute (2) Lupus nephritis Current Visit: Yes Status: Acute (3) Proteinuria Current Visit: Yes Status: Acute (4) Rash Current Visit: Yes Status: Acute - Plan Plan: Continue with POC per Nephrology: 1. Continue with IV fluids 2. Continue with monitoring renal function closely 3. Check CellCept level 4. Monitor proteinuria 5. UA pending 6. GI DVT prophylaxis Discharge Plan: Home Plan to discharge in: Greater than 2 days - Advance Directives Does patient have a Living Will: No Does patient have a Durable POA for Healthcare: No - Code Status/Comfort Care Code Status: Full Code Critical Care: No Time Spent Managing PTS Care (In Minutes): 35
--- NOTE | 2021-10-30 12:30 | P.PN ---
Date of Service: 10/30/21 Subjective Subjective: Patient's renal function continues to improve; rash without new changes Review of Systems 10-point ROS is otherwise unremarkable Physical Examination - Vital Signs reviewed - Physical Exam General: Alert, In no apparent distress, Oriented x3 Respiratory: Clear to auscultation bilaterally, Normal air movement Cardiovascular: Regular rate/rhythm, Normal S1 S2 Gastrointestinal: Normal bowel sounds, No tenderness Neurological: Normal speech, Normal tone, Normal affect Assessment & Plan - Problems (Diagnosis) (1) SLE (systemic lupus erythematosus related syndrome) Current Visit: Yes Status: Acute (2) Lupus nephritis Current Visit: Yes Status: Acute (3) Proteinuria Current Visit: Yes Status: Acute (4) Rash Current Visit: Yes Status: Acute - Plan Continue with POC per Nephrology: 1. Continue with IV fluids 2. Continue with monitoring renal function closely 3. Check CellCept level 4. Monitor proteinuria 5. UA pending 6. GI DVT prophylaxis Discharge Plan: Home Plan to discharge in: Greater than 2 days - Advance Directives Does patient have a Living Will: No Does patient have a Durable POA for Healthcare: No - Code Status/Comfort Care Code Status: Full Code Critical Care: No Time Spent Managing PTS Care (In Minutes): 35
[2021-10-30 12:48] LABS: Urine Bacteria 20-50 /HPF (<20)
[2021-10-30 12:49] LABS: Urine Amorphous Sediment 2+ /HPF (NONE SEEN)
[2021-10-30] MEDS: AMLODIPINE 5 MG TAB PO SCH (20:27)
[2021-10-30] MEDS: Levofloxacin 250mg IV 250 MG/50 ML BAG IV SCH (20:29)
--- NOTE | 2021-10-30 21:16 | P.PN ---
Date of Service: 10/30/21 Vital Signs Temp Pulse Resp BP Pulse Ox 96.6 F L 75 16 156/94 H 99 10/30/21 15:47 10/30/21 15:47 10/30/21 15:47 10/30/21 15:47 10/30/21 15:47 Medications Acetaminophen (Acetaminophen 500 Mg Tab) 500 mg PO Q6H PRN PRN Reason: TEMP > 100.4' F OR MILD PAIN Last Admin: 10/29/21 16:05 Dose: 500 mg Documented by: Amlodipine Besylate (Amlodipine 5 Mg Tab) 5 mg PO BID [facility] Last Admin: 10/30/21 20:27 Dose: 5 mg Documented by: Calcitriol (Calcitrol 0.25 Mcg Cap) 0.5 mcg PO DAILY [facility] Last Admin: 10/30/21 09:29 Dose: 0.5 mcg Documented by: Carvedilol (Carvedilol 6.25 Mg Tab) 6.25 mg PO BID [facility] Last Admin: 10/30/21 20:27 Dose: 6.25 mg Documented by: Cholecalciferol (Vitamin D 5,000 Unit Cap) 5,000 unit PO DAILY [facility] Last Admin: 10/30/21 09:29 Dose: 5,000 unit Documented by: Famotidine (Famotidine 20 Mg/2 Ml Vial) 20 mg IV DAILY [facility]; Protocol Last Admin: 10/30/21 09:30 Dose: 20 mg Documented by: Levofloxacin/Dextrose (Levaquin 250mg/50 Ml Ivpb) 250 mg in 50 mls @ 50 mls/hr IV Q24H [facility]; Protocol Last Admin: 10/30/21 20:29 Dose: 50 mls Documented by: Sodium Bicarbonate 100 meq/ (Dextrose/Water) 1,100 mls @ 100 mls/hr IV .Q11H [facility] Last Admin: 10/30/21 11:48 Dose: 1,100 mls Documented by: Ondansetron HCl (Ondansetron 4 Mg/2 Ml Vial) 4 mg IV Q8H PRN PRN Reason: NAUSEA / VOMITING Sodium Bicarbonate (Sodium Bicarb 325 Mg Tab) 650 mg PO QID [facility] Last Admin: 10/30/21 20:29 Dose: 650 mg Documented by: Sodium Chloride (Flush Normal Saline 10 Ml) 10 ml IV BID [facility] Last Admin: 10/30/21 20:28 Dose: 10 ml Documented by: Lab Results (last 24 hrs) 10/30/21 10:43: Urine Color Yellow, Urine Appearance Clear, Urine pH 6.5, Ur Specific [place] 1.015, Glucose (UA)(Auto) Negative, Urine Ketones Negative, Urine Blood 1+ H, Urine Nitrite Negative, Urine Bilirubin Negative, Urine Urobilinogen 0.2, Ur Leukocyte Esterase Negative, Urine RBC 5-10 H, Urine WBC 10-20 H, Ur Squamous Epith Cells <5, Amorphous Sediment 2+ H, Urine Bacteria 20- 50 H, Urine Culture Reflexed Reflexed, Urine Total Protein 3+ H 10/30/21 06:00: U Random Total Protein 242.1 H, Urine Total Volume 1350, Ur Total Protein 24 Hr 3268 H 10/30/21 05:32: Hemoglobin A1c 5.3 10/30/21 05:32: Sodium 139, Potassium 5.4 H, Chloride 119 H, Carbon Dioxide 12 L*, BUN 48 H, Creatinine 4.46 H, Estimated GFR 14 L, Glucose 121 H, Uric Acid 9.0 H, Calcium 8.5, Iron 39.0 L, TIBC 259, Transferrin 185 L, Transferrin % Sat 15.1 L, Total Bilirubin 0.1 L, AST 11 L, ALT 12, Alkaline Phosphatase 53, Serum Total Protein 5.9 L, Albumin 2.5 L, Globulin 3.4, Albumin/Globulin Ratio 0.7 L, Vitamin B12 1529 H, Serum Folate 8.8 10/30/21 05:32: WBC 7.90 D, RBC 3.63 L, Hgb 7.7 L, Hct 24.9 L, MCV 68.4 L, MCH 21.1 L, MCHC 30.9 L, RDW 20.6 H, Plt Count 243, MPV 8.8, Neutrophils % 95.1 H, Lymphocytes % 3.5 L, Monocytes % 0.8 L, Eosinophils % 0.0, Basophils % 0.6, Absolute Neutrophils 7.5, Absolute Lymphocytes 0.3 L, Absolute Monocytes 0.1, Absolute Eosinophils 0.0, Absolute Basophils 0.0, Platelet Estimate Adeq, Clumped Platelets Fibrin strands, Hypochromasia 2+, Anisocytosis 1+, Microcytosis 2+, Tear Drop Cells 1+, Ovalocytes 2+, Schistocytes 1+, Morphology Comment Noted, Smear Scan Ok Assessment/ Plan: Nephrology No dyspnea No chest pain Improving urine output No acute events overnight Vitals, medications, blood work and imaging reviewed in the chart. General: In no apparent distress, Oriented x3, Cooperative HEENT: Atraumatic Neck: Supple Respiratory: Clear to auscultation bilaterally Cardiovascular: No edema, Regular rate/rhythm Gastrointestinal: Soft and benign, Non-distended Musculoskeletal: No clubbing, No contractures Integumentary: No rashes, No cyanosis Neurological: Normal speech Laboratory Data (last 24 hrs) 10/29/21 03:33: Sodium 139, Potassium 5.1, BUN 51 H, Creatinine 4.75 H, Glucose 124 H, Uric Acid 9.8 H D, Phosphorus 5.6 H, Magnesium 2.2, Total Bilirubin 0.2, AST 6 L, ALT < 10 L, Alkaline Phosphatase 55 10/29/21 03:33: WBC 4.30, Hgb 7.3 L, Hct 24.1 L, Plt Count 253 Imagings Data: CT Abd/Pelvis [id number]: No acute intra-abdominal abnormality. Bulky fibroid uterus. Conclusions/Impression: HERMILA likely due to hypovolemia CKD III with proteinuria Lupus Nephritis -No NSAIDs -Change IVF to Bicarb gtt Hyperkalemia -Continue IVF Acidosis -Continue oral bicarb QID HTN with CKD -Continue Coreg BID -Increase Amlodipine Moderate malnutrition -Advance nutrition as tolerated -Consider Nepro Anemia in chronic illness Iron deficiency -Retacrit prn -IV iron prn Case reviewed with Dr. Blankenship
[2021-10-31 03:36] LABS: Absolute Lymphocytes (CBC) 1.7 K/uL (0.7-4.9); Hematocrit 22.4 % (36.0-45.0); Lymphocytes % 20.8 % (15.3-44.8); MPV 8.6 fL (7.6-11.3); RBC Red Blood Cell Count 3.28 M/uL (3.86-4.86)
[2021-10-31 03:57] LABS: Albumin 2.2 g/dL (3.4-5.0); Bilirubin Total 0.1 mg/dL (0.2-1.0); C-Reactive Protein 11.5 mg/L (<3.00); Phosphorus 4.2 mg/dL (2.5-4.9); Potassium 3.9 mmol/L (3.5-5.1); Protein, Total 5.5 g/dL (6.4-8.2); Uric Acid 8.7 mg/dL (2.6-6.0)
[2021-10-31] MEDS: D5W 1,000 ML with NA BICARB 8.4% 100 MEQ IV SCH ×6 (06:35→20:13)
[2021-10-31] MEDS ORDERED: METHYLPRED NA SUC 1,000 MG in NA CHLORIDE 0.9% 100 ML IV ONE (07:18)
[2021-10-31] MEDS: SODIUM BICARB 325 MG TAB PO SCH ×4 (08:40→20:12)
[2021-10-31] MEDS: FAMOTIDINE 20 MG/2 ML VIAL IV SCH (08:40)
[2021-10-31] MEDS: CALCITROL 0.25 MCG CAP PO SCH (08:40)
[2021-10-31] MEDS: carvediloL 6.25 MG TAB PO SCH ×2 (08:41→20:12)
[2021-10-31] MEDS: AMLODIPINE 5 MG TAB PO SCH ×2 (08:41→20:13)
[2021-10-31] MEDS: VITAMIN D 5,000 UNIT CAP PO SCH (08:42)
[2021-10-31] MEDS ORDERED: MYCOPHENOLATE 500 MG PO SCH (09:00)
[2021-10-31] MEDS: MYCOPHENOLATE PO SCH ×2 (10:04→20:13)
[2021-10-31 13:09] LABS: Urine Appearance CLEAR (Clear); Urine Bilirubin NEGATIVE (Negative); Urine Blood 1+ (Negative); Urine Color YELLOW (Yellow); Urine Glucose NEGATIVE (Negative); Urine Protein 3+ (Negative); Urine Urobilinogen 0.2 mg/dL (0.2-1.0)
[2021-10-31 13:10] LABS: Urine Protein/Creatinine Ratio 3.28 ratio (<0.15)
[2021-10-31 14:02] LABS: Urine Bacteria <20 /HPF (<20)
[2021-10-31 14:03] LABS: Urine Mucus 1+ /HPF (NONE SEEN)
--- NOTE | 2021-10-31 21:39 | P.PN ---
Date of Service: 10/31/21 Vital Signs Temp Pulse Resp BP Pulse Ox 97.7 F 81 18 139/81 100 10/31/21 20:00 10/31/21 20:00 10/31/21 20:00 10/31/21 20:00 10/31/21 20:00 Medications Acetaminophen (Acetaminophen 500 Mg Tab) 500 mg PO Q6H PRN PRN Reason: TEMP > 100.4' F OR MILD PAIN Last Admin: 10/29/21 16:05 Dose: 500 mg Documented by: Amlodipine Besylate (Amlodipine 5 Mg Tab) 5 mg PO BID [facility] Last Admin: 10/31/21 20:13 Dose: 5 mg Documented by: Calcitriol (Calcitrol 0.25 Mcg Cap) 0.5 mcg PO DAILY [facility] Last Admin: 10/31/21 08:40 Dose: 0.5 mcg Documented by: Carvedilol (Carvedilol 6.25 Mg Tab) 6.25 mg PO BID [facility] Last Admin: 10/31/21 20:12 Dose: 6.25 mg Documented by: Cholecalciferol (Vitamin D 5,000 Unit Cap) 5,000 unit PO DAILY [facility] Last Admin: 10/31/21 08:42 Dose: 5,000 unit Documented by: Famotidine (Famotidine 20 Mg/2 Ml Vial) 20 mg IV DAILY [facility]; Protocol Last Admin: 10/31/21 08:40 Dose: 20 mg Documented by: Home Med (Mycophenolate) 1,500 mg PO BID [facility] Last Admin: 10/31/21 20:13 Dose: 1,500 mg Documented by: Levofloxacin/Dextrose (Levaquin 250mg/50 Ml Ivpb) 250 mg in 50 mls @ 50 mls/hr IV Q24H [facility]; Protocol Last Admin: 10/30/21 20:29 Dose: 50 mls Documented by: Sodium Bicarbonate 100 meq/ (Dextrose/Water) 1,100 mls @ 100 mls/hr IV .Q11H [facility] Last Admin: 10/31/21 20:13 Dose: 1,100 mls Documented by: Ondansetron HCl (Ondansetron 4 Mg/2 Ml Vial) 4 mg IV Q8H PRN PRN Reason: NAUSEA / VOMITING Sodium Bicarbonate (Sodium Bicarb 325 Mg Tab) 650 mg PO QID [facility] Last Admin: 10/31/21 20:12 Dose: 650 mg Documented by: Sodium Chloride (Flush Normal Saline 10 Ml) 10 ml IV BID [facility] Last Admin: 10/31/21 08:42 Dose: 10 ml Documented by: Lab Results (last 24 hrs) 10/31/21 11:56: Ur Random Sodium 81, Ur Random Potassium 21.0 10/31/21 11:56: Urine Color Yellow, Urine Appearance Clear, Urine pH 6.0, Ur Specific [place] 1.010, Glucose (UA)(Auto) Negative, Urine Ketones Negative, Urine Blood 1+ H, Urine Nitrite Negative, Urine Bilirubin Negative, Urine Urobilinogen 0.2, Ur Leukocyte Esterase Negative, Urine RBC 5-10 H, Urine WBC 5- 10 H, Ur Squamous Epith Cells <5, Urine Bacteria <20, Urine Mucus 1+, Urine Culture Reflexed Reflexed, Urine Total Protein 3+ H 10/31/21 11:56: U Random Total Protein 269.0 H, Urine Creatinine 82.0, Protein/Creatinin Ratio 3.28 H 10/31/21 03:13: Sodium 139, Potassium 3.9, Chloride 114 H, Carbon Dioxide 18 L, BUN 51 H, Creatinine 4.12 H, Estimated GFR 15 L, Glucose 99, Uric Acid 8.7 H, Calcium 8.4 L, Phosphorus 4.2, Total Bilirubin 0.1 L, AST 10 L, ALT 13, Alkaline Phosphatase 48, Creatine Kinase 40, C-Reactive Protein 11.50 H, Serum Total Protein 5.5 L, Albumin 2.2 L, Globulin 3.3, Albumin/Globulin Ratio 0.7 L 10/31/21 03:13: WBC 8.00, RBC 3.28 L, Hgb 7.1 L, Hct 22.4 L, MCV 68.3 L, MCH 21.6 L, MCHC 31.6 L, RDW 19.7 H, Plt Count 237, MPV 8.6, Neutrophils % 68.7, Lymphocytes % 20.8, Monocytes % 10.4, Eosinophils % 0.0, Basophils % 0.1, Absolute Neutrophils 5.5, Absolute Lymphocytes 1.7, Absolute Monocytes 0.8, Absolute Eosinophils 0.0, Absolute Basophils 0.0, ESR [place] 69 H Microbiology Results 10/30/21 10:43 Clean Catch Urine [place] Count - Preliminary No growth. 03/10/22 10:43 Clean Catch Urine - Preliminary No growth. Assessment/ Plan: Nephrology No dyspnea No chest pain Improving urine output No acute events overnight Vitals, medications, blood work and imaging reviewed in the chart. General: In no apparent distress, Oriented x3, Cooperative HEENT: Atraumatic Neck: Supple Respiratory: Clear to auscultation bilaterally Cardiovascular: No edema, Regular rate/rhythm Gastrointestinal: Soft and benign, Non-distended Musculoskeletal: No clubbing, No contractures Integumentary: No rashes, No cyanosis Neurological: Normal speech Laboratory Data (last 24 hrs) 10/29/21 03:33: Sodium 139, Potassium 5.1, BUN 51 H, Creatinine 4.75 H, Glucose 124 H, Uric Acid 9.8 H D, Phosphorus 5.6 H, Magnesium 2.2, Total Bilirubin 0.2, AST 6 L, ALT < 10 L, Alkaline Phosphatase 55 10/29/21 03:33: WBC 4.30, Hgb 7.3 L, Hct 24.1 L, Plt Count 253 Imagings Data: CT Abd/Pelvis [id number]: No acute intra-abdominal abnormality. Bulky fibroid ut erus. Conclusions/Impression: HERMILA likely due to hypovolemia but concerning for Lupus nephritis CKD III with proteinuria Lupus Nephritis -No NSAIDs -Continue IVF to Bicarb gtt -Solumedrol 1000mg IV X1 Hyperkalemia -Continue IVF Acidosis -Continue oral bicarb QID HTN with CKD -Continue Coreg BID -Continue Amlodipine Moderate malnutrition -Advance nutrition as tolerated -Consider Nepro Anemia in chronic illness Iron deficiency -Retacrit in the am -IV iron prn Case discussed with Dr. Blankenship
[2021-10-31] MEDS: Levofloxacin 250mg IV 250 MG/50 ML BAG IV SCH (22:19)
[2021-11-01 06:04] LABS: Absolute Lymphocytes (CBC) 0.4 K/uL (0.7-4.9); Hematocrit 25.4 % (36.0-45.0); Lymphocytes % 5.6 % (15.3-44.8); MPV 8.7 fL (7.6-11.3); RBC Red Blood Cell Count 3.74 M/uL (3.86-4.86)
[2021-11-01 06:19] LABS: Potassium 4.1 mmol/L (3.5-5.1)
[2021-11-01] MEDS: D5W 1,000 ML with NA BICARB 8.4% 100 MEQ IV SCH ×4 (07:00→18:00)
[2021-11-01] MEDS ORDERED: METHYLPRED NA SUC 500 MG in NA CHLORIDE 0.9% 100 ML IV ONE (09:00)
[2021-11-01] MEDS ORDERED: EPOETIN ALFA-EPBX 10,000 UNIT/ML VIAL SQ SCH (09:00)
[2021-11-01] MEDS: VITAMIN D 5,000 UNIT CAP PO SCH (09:00)
[2021-11-01] MEDS: FAMOTIDINE 20 MG/2 ML VIAL IV SCH (09:19)
[2021-11-01] MEDS: SODIUM BICARB 325 MG TAB PO SCH ×4 (09:19→20:51)
[2021-11-01] MEDS: CALCITROL 0.25 MCG CAP PO SCH (09:19)
[2021-11-01] MEDS: AMLODIPINE 5 MG TAB PO SCH ×2 (09:21→20:51)
[2021-11-01] MEDS: carvediloL 6.25 MG TAB PO SCH ×2 (09:21→20:51)
[2021-11-01] MEDS: MYCOPHENOLATE PO SCH ×2 (09:22→20:50)
--- NOTE | 2021-11-01 20:22 | P.PN ---
Date of Service: 11/01/21 Vital Signs Temp Pulse Resp BP Pulse Ox 97.8 F 62 18 136/81 99 11/01/21 16:00 11/01/21 16:00 11/01/21 16:00 11/01/21 16:00 11/01/21 16:00 Medications Acetaminophen (Acetaminophen 500 Mg Tab) 500 mg PO Q6H PRN PRN Reason: TEMP > 100.4' F OR MILD PAIN Last Admin: 10/29/21 16:05 Dose: 500 mg Documented by: Amlodipine Besylate (Amlodipine 5 Mg Tab) 5 mg PO BID [facility] Last Admin: 11/01/21 09:21 Dose: 5 mg Documented by: Calcitriol (Calcitrol 0.25 Mcg Cap) 0.5 mcg PO DAILY [facility] Last Admin: 11/01/21 09:19 Dose: 0.5 mcg Documented by: Carvedilol (Carvedilol 6.25 Mg Tab) 6.25 mg PO BID [facility] Last Admin: 11/01/21 09:21 Dose: 6.25 mg Documented by: Cholecalciferol (Vitamin D 5,000 Unit Cap) 5,000 unit PO DAILY [facility] Last Admin: 11/01/21 09:00 Dose: 5,000 unit Documented by: Famotidine (Famotidine 20 Mg/2 Ml Vial) 20 mg IV DAILY [facility]; Protocol Last Admin: 11/01/21 09:19 Dose: 20 mg Documented by: Home Med (Mycophenolate) 1,500 mg PO BID [facility] Last Admin: 11/01/21 09:22 Dose: 1,500 mg Documented by: Levofloxacin/Dextrose (Levaquin 250mg/50 Ml Ivpb) 250 mg in 50 mls @ 50 mls/hr IV Q24H [facility]; Protocol Last Admin: 10/31/21 22:19 Dose: 50 mls Documented by: Sodium Bicarbonate 100 meq/ (Dextrose/Water) 1,100 mls @ 100 mls/hr IV .Q11H [facility] Last Admin: 11/01/21 18:00 Dose: Not Given Documented by: Ondansetron HCl (Ondansetron 4 Mg/2 Ml Vial) 4 mg IV Q8H PRN PRN Reason: NAUSEA / VOMITING Sodium Bicarbonate (Sodium Bicarb 325 Mg Tab) 650 mg PO QID [facility] Last Admin: 11/01/21 18:21 Dose: 650 mg Documented by: Sodium Chloride (Flush Normal Saline 10 Ml) 10 ml IV BID [facility] Last Admin: 11/01/21 09:00 Dose: 10 ml Documented by: Lab Results (last 24 hrs) 11/01/21 05:53: Sodium 138, Potassium 4.1, Chloride 109 H, Carbon Dioxide 18 L, BUN 51 H, Creatinine 4.26 H, Estimated GFR 15 L, Glucose 141 H, Calcium 8.1 L 11/01/21 05:53: WBC 7.50, RBC 3.74 L, Hgb 7.9 L, Hct 25.4 L, MCV 67.9 L, MCH 21.0 L, MCHC 30.9 L, RDW 19.8 H, Plt Count 257, MPV 8.7, Neutrophils % 91.3 H, Lymphocytes % 5.6 L, Monocytes % 2.7 L, Eosinophils % 0.1, Basophils % 0.3, Absolute Neutrophils 6.8, Absolute Lymphocytes 0.4 L, Absolute Monocytes 0.2, Absolute Eosinophils 0.0, Absolute Basophils 0.0 10/29/21 03:33: Double Strand DNA Ab 14 H, Complement C3 67 L, Complement C4 19 Microbiology Results 10/30/21 10:43 Clean Catch Urine [place] Count - Final No growth. 10/30/21 10:43 Clean Catch Urine - Final No growth. Assessment/ Plan: Nephrology No dyspnea No chest pain Good urine output No acute events overnight Vitals, medications, blood work and imaging reviewed in the chart. General: In no apparent distress, Oriented x3, Cooperative HEENT: Atraumatic Neck: Supple Respiratory: Clear to auscultation bilaterally Cardiovascular: No edema, Regular rate/rhythm Gastrointestinal: Soft and benign, Non-distended Musculoskeletal: No clubbing, No contractures Integumentary: No rashes, No cyanosis Neurological: Normal speech Laboratory Data (last 24 hrs) 10/29/21 03:33: Sodium 139, Potassium 5.1, BUN 51 H, Creatinine 4.75 H, Glucose 124 H, Uric Acid 9.8 H D, Phosphorus 5.6 H, Magnesium 2.2, Total Bilirubin 0.2, AST 6 L, ALT < 10 L, Alkaline Phosphatase 55 10/29/21 03:33: WBC 4.30, Hgb 7.3 L, Hct 24.1 L, Plt Count 253 Imagings Data: CT Abd/Pelvis [id number]: No acute intra-abdominal abnormality. Bulky fibroid uterus. Conclusions/Impression: HERMILA likely due to hypovolemia/ ATN but concerning for Lupus nephritis CKD III with proteinuria Lupus Nephritis -No NSAIDs -Continue IVF to Bicarb gtt -Solumedrol 500mg IV X1 Hyperkalemia -Continue IVF Acidosis -Continue oral bicarb QID HTN with CKD -Continue Coreg BID -Continue Amlodipine Moderate malnutrition -Advance nutrition as tolerated -Consider Nepro Anemia in chronic illness Iron deficiency -Retacrit prn -IV iron prn
[2021-11-01] MEDS: ACETAMINOPHEN 500 MG TAB PO PRN (23:54)
[2021-11-02] MEDS: Levofloxacin 250mg IV 250 MG/50 ML BAG IV SCH (00:25)
[2021-11-02] MEDS: D5W 1,000 ML with NA BICARB 8.4% 100 MEQ IV SCH ×6 (04:43→21:12)
[2021-11-02 06:06] LABS: Absolute Lymphocytes (CBC) 0.4 K/uL (0.7-4.9); Hematocrit 25.6 % (36.0-45.0); Lymphocytes % 3.9 % (15.3-44.8); MPV 9.1 fL (7.6-11.3); RBC Red Blood Cell Count 3.77 M/uL (3.86-4.86)
[2021-11-02 06:17] LABS: Potassium 3.7 mmol/L (3.5-5.1)
[2021-11-02] MEDS: VITAMIN D 5,000 UNIT CAP PO SCH (09:55)
[2021-11-02] MEDS: MYCOPHENOLATE PO SCH ×2 (09:55→21:12)
[2021-11-02] MEDS: SODIUM BICARB 325 MG TAB PO SCH ×4 (09:59→21:14)
[2021-11-02] MEDS: CALCITROL 0.25 MCG CAP PO SCH (09:59)
[2021-11-02] MEDS ORDERED: SOD FERRIC GLUC COMPLX/SUCROSE 250 MG in NA CHLORIDE 0.9% 250 ML IV ONE (10:00)
[2021-11-02] MEDS ORDERED: METHYLPRED NA SUC 500 MG in NA CHLORIDE 0.9% 100 ML IV ONE (10:00)
[2021-11-02] MEDS: AMLODIPINE 5 MG TAB PO SCH ×2 (10:00→21:16)
[2021-11-02] MEDS: carvediloL 6.25 MG TAB PO SCH (10:00)
[2021-11-02] MEDS ORDERED: NA CHLORIDE 0.9% 250 ML ONE (11:27)
[2021-11-02] MEDS: FAMOTIDINE 20 MG/2 ML VIAL IV SCH (11:34)
[2021-11-02] MEDS ORDERED: BISACODYL E.C. 5 MG TAB PO ONE (12:31)
[2021-11-02] MEDS ORDERED: MAGNESIUM HYDROXIDE 8% 30 ML PO PRN (12:31)
[2021-11-02 14:30] VITALS: O2SAT 98
[2021-11-02] MEDS: ACETAMINOPHEN 500 MG TAB PO PRN (17:11)
[2021-11-02] MEDS: carvediloL 12.5 MG TAB PO SCH ×2 (17:12→21:00)
[2021-11-02 18:48] LABS: Magnesium 2.5 mg/dL (1.8-2.4); Potassium 3.3 mmol/L (3.5-5.1)
[2021-11-02] MEDS ORDERED: TRAMADOL HCL 50 MG TAB PO ONE (19:41)
[2021-11-02] MEDS: DOCUSATE NA 100 MG CAP PO SCH (21:14)
[2021-11-02] MEDS ORDERED: HYDROCODONE/APAP 7.5/325 MG TAB PO ONE (22:41)
[2021-11-02] MEDS ORDERED: KCL 20 MEQ/100 mL IVPB 20 MEQ/100 ML BAG IV SCH (23:45)
[2021-11-03] MEDS: NACHLORIDE 0.45% 1,000 ML IV SCH ×3 (00:21→18:36)
--- NOTE | 2021-11-03 02:00 | P.PN ---
Date of Service: 10/31/21 Subjective Rash has resolved. Patient is clinically feeling better. However, renal function is not really improving. Continue with pulse dose steroids and we will see how patient does over the weekend. Review of Systems 10-point ROS is otherwise unremarkable Physical Examination - Vital Signs reviewed - Physical Exam General: Alert, In no apparent distress, Oriented x3 Respiratory: Clear to auscultation bilaterally, Normal air movement Cardiovascular: Regular rate/rhythm, Normal S1 S2 Gastrointestinal: Normal bowel sounds, No tenderness Neurological: Normal speech, Normal tone, Normal affect Assessment & Plan - Problems (Diagnosis) (1) SLE (systemic lupus erythematosus related syndrome) Current Visit: Yes Status: Acute (2) Lupus nephritis Current Visit: Yes Status: Acute (3) Proteinuria Current Visit: Yes Status: Acute (4) Rash Current Visit: Yes Status: Acute - Plan Continue with POC per Nephrology: 1. Continue with IV fluids 2. Continue with monitoring renal function closely 3. Pulsed dose steroids and continue CellCept 4. Monitor proteinuria 5. UA pending 6. GI DVT prophylaxis Discharge Plan: Home Plan to discharge in: Greater than 2 days - Advance Directives Does patient have a Living Will: No Does patient have a Durable POA for Healthcare: No - Code Status/Comfort Care Code Status: Full Code Critical Care: No Time Spent Managing PTS Care (In Minutes): 35
--- NOTE | 2021-11-03 02:02 | P.PN ---
Date of Service: 11/01/21 Subjective Patient is doing well. Patient clinical symptoms are much better. However, renal function is worse. Review of Systems 10-point ROS is otherwise unremarkable Physical Examination - Vital Signs reviewed - Physical Exam General: Alert, In no apparent distress, Oriented x3 Respiratory: Clear to auscultation bilaterally, Normal air movement Cardiovascular: Regular rate/rhythm, Normal S1 S2 Gastrointestinal: Normal bowel sounds, No tenderness Neurological: Normal speech, Normal tone, Normal affect Assessment & Plan - Problems (Diagnosis) (1) SLE (systemic lupus erythematosus related syndrome) Current Visit: Yes Status: Acute (2) Lupus nephritis Current Visit: Yes Status: Acute (3) Proteinuria Current Visit: Yes Status: Acute (4) Rash Current Visit: Yes Status: Acute - Plan Continue with POC per Nephrology: 1. Continue with gentle IV fluids 2. Continue with monitoring renal function closely 3. Pulsed dose steroids and continue CellCept 4. Monitor proteinuria 5. UA pending 6. GI DVT prophylaxis Discharge Plan: Home Plan to discharge in: Greater than 2 days - Advance Directives Does patient have a Living Will: No Does patient have a Durable POA for Healthcare: No - Code Status/Comfort Care Code Status: Full Code Critical Care: No Time Spent Managing PTS Care (In Minutes): 35
--- NOTE | 2021-11-03 02:03 | P.PN ---
Date of Service: 11/02/21 Subjective Spoke with nephrology today. Patient renal function has not improved. Double- stranded DNA and complement levels were reviewed. Possible renal biopsy in a.m. Patient also with episodes of nonsustained V. tach. Monitor electrolytes and will review PICC line placement. Review of Systems 10-point ROS is otherwise unremarkable Physical Examination - Vital Signs reviewed - Physical Exam General: Alert, In no apparent distress, Oriented x3 Respiratory: Clear to auscultation bilaterally, Normal air movement Cardiovascular: Regular rate/rhythm, Normal S1 S2 Gastrointestinal: Normal bowel sounds, No tenderness Neurological: Normal speech, Normal tone, Normal affect Assessment & Plan - Problems (Diagnosis) (1) SLE (systemic lupus erythematosus related syndrome) Current Visit: Yes Status: Acute (2) Lupus nephritis with acute renal failure Current Visit: Yes Status: Acute (3) Proteinuria Current Visit: Yes Status: Acute (4) Rash Current Visit: Yes Status: Acute - Plan Continue with POC per Nephrology recommendation: 1. Continue with gentle IV fluids 2. Continue with monitoring renal function closely 3. Pulsed dose steroids and continue CellCept 4. Monitor proteinuria 5. GI DVT prophylaxis Discharge Plan: Home Plan to discharge in: Greater than 2 days - Advance Directives Does patient have a Living Will: No Does patient have a Durable POA for Healthcare: No - Code Status/Comfort Care Code Status: Full Code Critical Care: No Time Spent Managing PTS Care (In Minutes): 35
[2021-11-03 03:18] LABS: HBsAG Nonreactive (Nonreactive)
[2021-11-03 05:24] LABS: Absolute Lymphocytes (CBC) 0.8 K/uL (0.7-4.9); Hematocrit 24.7 % (36.0-45.0); Lymphocytes % 7.1 % (15.3-44.8); MPV 9.2 fL (7.6-11.3); RBC Red Blood Cell Count 3.68 M/uL (3.86-4.86)
[2021-11-03 05:29] LABS: C-Reactive Protein 3.2 mg/L (<3.00); Potassium 3.7 mmol/L (3.5-5.1)
[2021-11-03 05:52] LABS: Anisocytosis 2+; Blood Morphology Comment NOTED (NOT SEEN); Platelet Estimate ADEQ; Polychromasia 1+
[2021-11-03 08:54] LABS: Protime INR 1.11
[2021-11-03] MEDS: DOCUSATE NA 100 MG CAP PO SCH ×2 (09:00→20:37)
[2021-11-03] MEDS: FAMOTIDINE 20 MG/2 ML VIAL IV SCH (09:00)
[2021-11-03] MEDS: VITAMIN D 5,000 UNIT CAP PO SCH (09:00)
[2021-11-03] MEDS: CEFTRIAXONE 1,000 MG in NA CHLORIDE 0.9% 50 ML IVPB SCH (09:00)
[2021-11-03] MEDS: MYCOPHENOLATE PO SCH ×2 (09:00→20:37)
[2021-11-03] MEDS: carvediloL 12.5 MG TAB PO SCH ×2 (09:00→20:36)
[2021-11-03] MEDS: CALCITROL 0.25 MCG CAP PO SCH (09:00)
[2021-11-03] MEDS: AMLODIPINE 5 MG TAB PO SCH ×2 (09:00→20:36)
[2021-11-03] MEDS: SODIUM BICARB 325 MG TAB PO SCH ×4 (09:00→20:37)
[2021-11-03] MEDS: predniSONE 20 MG TAB PO SCH (09:00)
[2021-11-03] MEDS ORDERED: CEFTRIAXONE 1000 MG/VIAL ONE (09:28)
[2021-11-03] MEDS ORDERED: NA CHLORIDE 0.9% 50 ML ONE (09:33)
[2021-11-03] MEDS ORDERED: NALOXONE 0.4 MG/ML VIAL ONE (09:53)
[2021-11-03] MEDS ORDERED: MIDAZOLAM HCL 2 MG/2 ML INJ ONE (09:53)
[2021-11-03] MEDS ORDERED: FENTANYL CITR 100 MCG/2 ML ONE (09:54)
[2021-11-03] MEDS ORDERED: NA CHLORIDE 0.9% 500 ML ONE (09:54)
[2021-11-03] MEDS ORDERED: FLUMAZENIL 0.1 MG/ML (5 mL VIAL) IV ONE (09:57)
--- NOTE | 2021-11-03 12:00 | RAD REPORT ---
EXAM DESCRIPTION: CT - Renal Biopsy CT - 11/03/2021 11:13 am CLINICAL HISTORY: HERMILA Flank pain, renal failure COMPARISON: Renal Biopsy\CT dated 08/05/2020 FINDINGS: Preoperative diagnosis: Flank pain, renal failure Post operative diagnosis: Same Conscious Sedation: 45 minutes. Patient was continuously monitored by nursing staff. Contrast used: NONE Estimated blood loss: less than 5 mL Specimens: 2 x 18 gauge core specimens The patient was placed prone on the table and the left posterior flank area was prepped and draped in the usual sterile fashion. 1% lidocaine was infiltrated into the subcutaneous tissues for local anes thesia. Under computed tomographic guidance, a 17 gauge introducer was advanced into inferior left ki dney. Subsequently, a 18 gauge, 15 cm long, 20 mm throw core biopsy gun was advanced into inferior le ft kidney cortex and 2 cores were obtained. Postprocedure imaging demonstrated no complications. Samples were given to pathology for analysis. Th e patient tolerated the procedure without immediate complication. IMPRESSION: Successful CT-guided nonfocal left renal biopsy. 45 minutes of IV conscious sedation was utilized. All CT scans are performed using dose optimization technique as appropriate and may include automated exposure control or mA/KV adjustment according to patient size.
--- NOTE | 2021-11-03 12:52 | RAD REPORT ---
EXAM DESCRIPTION: RAD - Chest Single View - 11/01/2021 11:45 pm CLINICAL HISTORY: PICC line Placement. COMPARISON: None. TECHNIQUE: Single view AP chest radiograph(s). FINDINGS: Left PICC terminates at the superior cavoatrial junction. Low lung volumes with trace diff use pulmonary interstitial thickening and mild central vascular congestion. No infiltrate identified. No pleural effusion. No pneumothorax. Borderline cardiac size. No significant osseous abnormality. IMPRESSION: 1. Left PICC terminates at the superior cavoatrial junction. No pneumothorax. 2. Mild central vascular congestion and trace diffuse pulmonary interstitial thickening. Electronically signed by: Marixa Oviedo MD 11/01/2021 11:54 PM LOGISTICS TEAM LEADER Due to temporary technical issues with the PACS/Fluency reporting system, reports are being signed by the in house radiologist without review as a courtesy to ensure prompt reporting. The interpreting r adiologist is fully responsible for the content of the report.
--- NOTE | 2021-11-03 15:26 | P.PN ---
Date of Service: 11/03/21 Subjective: improving each day no new symptoms appetite low no new rashes ROS: 10 point ROS as noted above, otherwise negative Physical Exam: Gen: NAD, AOx3 HEENT: normal conjunctiva, sclera anicteric CV: Regular rate/rhythm, no edema Pulm: Clear bilaterally, nonlabored on room air Abd: soft, nontender, non-distended Integumentary: no rash Problem List: SLE Lupus nephritis with acute renal failure Proteinuria Rash chronic anemia, microcytic, iron deficient continue steroids, IVF , nephrology consulted renal function minimally improved suspect HERMILA secondary to lupus renal biopsy done earlier today, no complications encourage PO intake Code: full Dispo: home, 1-2 days Time Spent Managing PTS Care (In Minutes): 35
[2021-11-03] MEDS ORDERED: SOD FERRIC GLUC COMPLX/SUCROSE 250 MG in NA CHLORIDE 0.9% 250 ML IV ONE (17:00)
--- NOTE | 2021-11-03 17:48 | RAD REPORT ---
EXAM DESCRIPTION: Aries Single View11/03/2021 5:38 pm CLINICAL HISTORY: Hypoxia COMPARISON: November 01, 2021 FINDINGS: The lungs appear clear of acute infiltrate. The heart is moderately enlarged. PICC line in place IMPRESSION: No acute abnormalities displayed
--- NOTE | 2021-11-03 21:46 | P.PN ---
Date of Service: 11/03/21 Vital Signs Temp Pulse Resp BP Pulse Ox 97.5 F 60 16 129/81 98 11/03/21 16:00 11/03/21 20:36 11/03/21 16:00 11/03/21 20:36 11/03/21 16:00 Medications Acetaminophen (Acetaminophen 500 Mg Tab) 500 mg PO Q6H PRN PRN Reason: TEMP > 100.4' F OR MILD PAIN Last Admin: 11/02/21 17:11 Dose: 500 mg Documented by: Amlodipine Besylate (Amlodipine 5 Mg Tab) 5 mg PO BID [facility] Last Admin: 11/03/21 20:36 Dose: 5 mg Documented by: Calcitriol (Calcitrol 0.25 Mcg Cap) 0.5 mcg PO DAILY [facility] Last Admin: 11/03/21 09:00 Dose: Not Given Documented by: Carvedilol (Carvedilol 12.5 Mg Tab) 12.5 mg PO BID [facility] Last Admin: 11/03/21 20:36 Dose: 12.5 mg Documented by: Cholecalciferol (Vitamin D 5,000 Unit Cap) 5,000 unit PO DAILY [facility] Last Admin: 11/03/21 09:00 Dose: Not Given Documented by: Docusate Sodium (Docusate Na 100 Mg Cap) 100 mg PO BID [facility] Last Admin: 11/03/21 20:37 Dose: 100 mg Documented by: Famotidine (Famotidine 20 Mg/2 Ml Vial) 20 mg IV DAILY [facility]; Protocol Last Admin: 11/03/21 09:00 Dose: Not Given Documented by: Home Med (Mycophenolate) 1,500 mg PO BID [facility] Last Admin: 11/03/21 20:37 Dose: 1,500 mg Documented by: Ceftriaxone Sodium 1,000 mg/ (Sodium Chloride) 50 mls @ 100 mls/hr IVPB DAILY [facility]; Protocol Last Admin: 11/03/21 09:00 Dose: Not Given Documented by: Sodium Chloride (Sodium Chloride 0.45%) 1,000 mls @ 100 mls/hr IV .Q10H [facility] Last Admin: 11/03/21 18:36 Dose: 1,000 mls Documented by: Magnesium Hydroxide (Magnesium Hydroxide 8% 30 Ml) 30 ml PO BID PRN PRN Reason: CONSTIPATION Last Admin: 11/02/21 12:44 Dose: 30 ml Documented by: Ondansetron HCl (Ondansetron 4 Mg/2 Ml Vial) 4 mg IV Q8H PRN PRN Reason: NAUSEA / VOMITING Prednisone (Prednisone 20 Mg Tab) 40 mg PO DAILY [facility] Last Admin: 11/03/21 09:00 Dose: Not Given Documented by: Sodium Bicarbonate (Sodium Bicarb 325 Mg Tab) 650 mg PO QID [facility] Last Admin: 11/03/21 20:37 Dose: 650 mg Documented by: Sodium Chloride (Flush Normal Saline 10 Ml) 10 ml IV BID [facility] Last Admin: 11/03/21 20:37 Dose: 10 ml Documented by: Lab Results (last 24 hrs) 11/03/21 08:29: PT 12.2, INR 1.11, APTT 24.6 11/03/21 05:00: Uric Acid Cancelled, C-Reactive Protein Cancelled 11/03/21 04:53: [facility] 18 11/03/21 04:53: Sodium 138, Potassium 3.7, Chloride 106, Carbon Dioxide 25, BUN 62 H, Creatinine 4.27 H, Estimated GFR 15 L, Glucose 140 H, Uric Acid 10.0 H, Calcium 7.9 L, C-Reactive Protein 3.20 H 11/03/21 04:53: WBC 11.60 H D, RBC 3.68 L, Hgb 7.8 L, Hct 24.7 L, MCV 67.1 L, MCH 21.1 L, MCHC 31.5 L, RDW 19.3 H, Plt Count 244, MPV 9.2, Neutrophils % 89.0 H, Lymphocytes % 7.1 L, Monocytes % 3.6, Eosinophils % 0.1, Basophils % 0.2, Absolute Neutrophils 10.3 H, Segmented Neutrophils 92 H, Band Neutrophils 1, Abs olute Lymphocytes 0.8, Lymphocytes 5 L, Monocytes 1, Absolute Monocytes 0.4, Absolute Eosinophils 0.0, Absolute Basophils 0.0, Nucleated RBCs 3, Reactive Lymphocytes 1, Platelet Estimate Adeq, Polychromasia 1+, Anisocytosis 2+, Microcytosis 2+, Morphology Comment Noted 10/30/21 05:32: Hep Bs Antigen Nonreactive, Hep Bs Antibody, Quant 5 L, Hep B Core Total Ab Nonreactive Microbiology Results 10/30/21 10:43 Clean Catch Urine [place] Count - Final No growth. 10/30/21 10:43 Clean Catch Urine - Final No growth. Assessment/ Plan: Nephrology No dyspnea No chest pain Good urine output Renal biopsy this morning No acute events overnight Vitals, medications, blood work and imaging reviewed in the chart. General: In no apparent distress, Oriented x3, Cooperative HEENT: Atraumatic Neck: Supple Respiratory: Clear to auscultation bilaterally Cardiovascular: No edema, Regular rate/rhythm Gastrointestinal: Soft and benign, Non-distended Musculoskeletal: No clubbing, No contractures Integumentary: No rashes, No cyanosis Neurological: Normal speech Laboratory Data (last 24 hrs) 10/29/21 03:33: Sodium 139, Potassium 5.1, BUN 51 H, Creatinine 4.75 H, Glucose 124 H, Uric Acid 9.8 H D, Phosphorus 5.6 H, Magnesium 2.2, Total Bilirubin 0.2, AST 6 L, ALT < 10 L, Alkaline Phosphatase 55 10/29/21 03:33: WBC 4.30, Hgb 7.3 L, Hct 24.1 L, Plt Count 253 Imagings Data: CT Abd/Pelvis [id number]: No acute intra-abdominal abnormality. Bulky fibroid uterus. Conclusions/Impression: HERMILA likely due to hypovolemia/ ATN but concerning for Lupus nephritis CKD III with proteinuria Lupus Nephritis -No NSAIDs -Continue IVF -Prednisone 40mg daily Hyperkalemia -Continue IVF Acidosis -Continue oral bicarb QID HTN with CKD -Continue Coreg BID -Continue Amlodipine Moderate malnutrition -Advance nutrition as tolerated -Consider Nepro Anemia in chronic illness Iron deficiency -Retacrit in am -IV iron
[2021-11-04] MEDS: NACHLORIDE 0.45% 1,000 ML IV SCH ×2 (05:17→17:22)
[2021-11-04 06:18] LABS: Absolute Lymphocytes (CBC) 1.9 K/uL (0.7-4.9); Hematocrit 24.8 % (36.0-45.0); Lymphocytes % 16.9 % (15.3-44.8); MPV 8.6 fL (7.6-11.3); RBC Red Blood Cell Count 3.64 M/uL (3.86-4.86)
--- NOTE | 2021-11-04 06:29 | P.PN ---
Date of Service: 11/04/21 Subjective: improving, no new rashes, no new pains ROS: 10 point ROS as noted above, otherwise negative Physical Exam: Gen: NAD, AOx3 HEENT: normal conjunctiva, sclera anicteric CV: Regular rate/rhythm, no edema Pulm: Clear to auscultation bilaterally, nonlabored respirations on room air Abd: soft, nontender, non-distended Integumentary: no rash Problem List: HERMILA, Lupus nephritis with acute renal failure vs ATN SLE Proteinuria Rash chronic anemia, microcytic, iron deficient continue steroids, IVF , nephrology consulted renal function improved today suspect HERMILA secondary to lupus vs ATN renal biopsy done yesterday, no complications receiving IV iron, hemoglobin stable encourage PO intake overall improving Code: full Dispo: home, tomorrow, pending further improvement of renal function Time Spent Managing PTS Care (In Minutes): 35
[2021-11-04 06:42] LABS: Albumin 2.2 g/dL (3.4-5.0); Magnesium 2.6 mg/dL (1.8-2.4); Phosphorus 3.9 mg/dL (2.5-4.9); Potassium 3.5 mmol/L (3.5-5.1); Uric Acid 10.1 mg/dL (2.6-6.0)
[2021-11-04 07:20] LABS: Blood Morphology Comment NOTED (NOT SEEN); Hypochromasia 1+; Platelet Estimate ADEQ; White Blood Cell Scan OK (OK)
[2021-11-04] MEDS ORDERED: SOD FERRIC GLUC COMPLX/SUCROSE 250 MG in NA CHLORIDE 0.9% 250 ML IV ONE ×2 (08:00→17:00)
[2021-11-04] MEDS ORDERED: SOD FERRIC GLUC COMPLX/SUCROSE 250 MG in NA CHLORIDE 0.9% 100 ML IV ONE (08:00)
[2021-11-04] MEDS: CEFTRIAXONE 1,000 MG in NA CHLORIDE 0.9% 50 ML IVPB SCH (08:41)
[2021-11-04] MEDS: SODIUM BICARB 325 MG TAB PO SCH ×4 (08:41→20:07)
[2021-11-04] MEDS: DOCUSATE NA 100 MG CAP PO SCH ×2 (08:42→20:07)
[2021-11-04] MEDS: CALCITROL 0.25 MCG CAP PO SCH (08:42)
[2021-11-04] MEDS: AMLODIPINE 5 MG TAB PO SCH ×2 (08:43→20:15)
[2021-11-04] MEDS: predniSONE 20 MG TAB PO SCH (08:43)
[2021-11-04] MEDS: carvediloL 12.5 MG TAB PO SCH ×2 (08:43→20:15)
[2021-11-04] MEDS: VITAMIN D 5,000 UNIT CAP PO SCH (08:44)
[2021-11-04] MEDS: MYCOPHENOLATE PO SCH ×2 (08:44→20:06)
[2021-11-04] MEDS: FAMOTIDINE 20 MG/2 ML VIAL IV SCH (08:44)
[2021-11-04] MEDS ORDERED: EPOETIN ALFA-EPBX 10,000 UNIT/ML VIAL SQ SCH (09:00)
[2021-11-04 16:21] LABS: Urine Appearance CLEAR (Clear); Urine Bilirubin NEGATIVE (Negative); Urine Blood 1+ (Negative); Urine Color YELLOW (Yellow); Urine Glucose TRACE (Negative); Urine Protein 3+ (Negative); Urine Specific Gravity 1.015 (1.005-1.030); Urine Urobilinogen 0.2 mg/dL (0.2-1.0)
[2021-11-04 16:23] LABS: Urine Microscopic Reflex ORDER UMIC
[2021-11-04 16:38] LABS: UR PROTEIN 307.4 mg/dL (<11.9); Urine Protein/Creatinine Ratio 3.7 ratio (<0.15)
[2021-11-04 16:45] LABS: Urine Bacteria <20 /HPF (<20); Urine RBC <5 /HPF (NONE SEEN)
[2021-11-04] MEDS: ACETAMINOPHEN 500 MG TAB PO PRN (17:23)
--- NOTE | 2021-11-04 23:25 | P.PN ---
Date of Service: 11/04/21 Vital Signs Temp Pulse Resp BP Pulse Ox 97 F 62 19 159/88 H 98 11/04/21 20:00 11/04/21 20:15 11/04/21 20:00 11/04/21 20:15 11/04/21 20:00 Medications Acetaminophen (Acetaminophen 500 Mg Tab) 500 mg PO Q6H PRN PRN Reason: TEMP > 100.4' F OR MILD PAIN Last Admin: 11/04/21 17:23 Dose: 500 mg Documented by: Amlodipine Besylate (Amlodipine 5 Mg Tab) 5 mg PO BID [facility] Last Admin: 11/04/21 20:15 Dose: 5 mg Documented by: Calcitriol (Calcitrol 0.25 Mcg Cap) 0.5 mcg PO DAILY [facility] Last Admin: 11/04/21 08:42 Dose: 0.5 mcg Documented by: Carvedilol (Carvedilol 12.5 Mg Tab) 12.5 mg PO BID [facility] Last Admin: 11/04/21 20:15 Dose: 12.5 mg Documented by: Cholecalciferol (Vitamin D 5,000 Unit Cap) 5,000 unit PO DAILY [facility] Last Admin: 11/04/21 08:44 Dose: 5,000 unit Documented by: Docusate Sodium (Docusate Na 100 Mg Cap) 100 mg PO BID [facility] Last Admin: 11/04/21 20:07 Dose: 100 mg Documented by: Famotidine (Famotidine 20 Mg/2 Ml Vial) 20 mg IV DAILY [facility]; Protocol Last Admin: 11/04/21 08:44 Dose: 20 mg Documented by: Home Med (Mycophenolate) 1,500 mg PO BID [facility] Last Admin: 11/04/21 20:06 Dose: 1,500 mg Documented by: Ceftriaxone Sodium 1,000 mg/ (Sodium Chloride) 50 mls @ 100 mls/hr IVPB DAILY [facility]; Protocol Last Admin: 11/04/21 08:41 Dose: 50 mls Documented by: Sodium Chloride (Sodium Chloride 0.45%) 1,000 mls @ 100 mls/hr IV .Q10H [facility] Last Admin: 11/04/21 17:22 Dose: 1,000 mls Documented by: Magnesium Hydroxide (Magnesium Hydroxide 8% 30 Ml) 30 ml PO BID PRN PRN Reason: CONSTIPATION Last Admin: 11/02/21 12:44 Dose: 30 ml Documented by: Ondansetron HCl (Ondansetron 4 Mg/2 Ml Vial) 4 mg IV Q8H PRN PRN Reason: NAUSEA / VOMITING Prednisone (Prednisone 20 Mg Tab) 40 mg PO DAILY [facility] Last Admin: 11/04/21 08:43 Dose: 40 mg Documented by: Sodium Bicarbonate (Sodium Bicarb 325 Mg Tab) 650 mg PO QID [facility] Last Admin: 11/04/21 20:07 Dose: 650 mg Documented by: Sodium Chloride (Flush Normal Saline 10 Ml) 10 ml IV BID [facility] Last Admin: 11/04/21 20:15 Dose: 10 ml Documented by: Lab Results (last 24 hrs) 11/04/21 15:43: Urine Color Yellow, Urine Appearance Clear, Urine pH 6.0, Ur Specific [employer] 1.015, Glucose (UA)(Auto) Trace, Urine Ketones Negative, Urine Blood 1+ H, Urine Nitrite Negative, Urine Bilirubin Negative, Urine Urobilinogen 0.2, Ur Leukocyte Esterase Negative, Urine RBC <5, Urine WBC 5-10 H, Ur Squamous Epith Cells <5, Urine Bacteria <20, Urine Culture Reflexed Reflexed, Urine Total Protein 3+ H 11/04/21 15:43: Ur Random Sodium 48 11/04/21 15:43: U Random Total Protein 307.4 H, Urine Creatinine 83.0, Pr otein/Creatinin Ratio 3.70 H 11/04/21 05:28: Sodium 141, Potassium 3.5, Chloride 108 H, Carbon Dioxide 25, BUN 61 H, Creatinine 3.60 H, Estimated GFR 18 L, Glucose 81, Uric Acid 10.1 H, Calcium 7.7 L, Phosphorus 3.9, Magnesium 2.6 H, Albumin 2.2 L 11/04/21 05:28: WBC 11.30 H, RBC 3.64 L, Hgb 7.6 L, Hct 24.8 L, MCV 68.2 L, MCH 20.9 L, MCHC 30.6 L, RDW 19.2 H, Plt Count 267, MPV 8.6, Neutrophils % 70.8, Lymphocytes % 16.9, Monocytes % 11.7, Eosinophils % 0.0, Basophils % 0.6, Absolute Neutrophils 8.0, Absolute Lymphocytes 1.9, Absolute Monocytes 1.3, Absolute Eosinophils 0.0, Absolute Basophils 0.1, Platelet Estimate Adeq, Hypochromasia 1+, Microcytosis 1+, Morphology Comment Noted, Smear Scan Ok Microbiology Results 10/30/21 10:43 Clean Catch Urine [place] Count - Final No growth. 10/30/21 10:43 Clean Catch Urine - Final No growth. Assessment/ Plan: Nephrology No dyspnea No chest pain Good urine output. Feeling better. No acute events overnight Vitals, medications, blood work and imaging reviewed in the chart. General: In no apparent distress, Oriented x3, Cooperative HEENT: Atraumatic Neck: Supple Respiratory: Clear to auscultation bilaterally Cardiovascular: No edema, Regular rate/rhythm Gastrointestinal: Soft and benign, Non-distended Musculoskeletal: No clubbing, No contractures Integumentary: No rashes, No cyanosis Neurological: Normal speech Laboratory Data (last 24 hrs) 10/29/21 03:33: Sodium 139, Potassium 5.1, BUN 51 H, Creatinine 4.75 H, Glucose 124 H, Uric Acid 9.8 H D, Phosphorus 5.6 H, Magnesium 2.2, Total Bilirubin 0.2, AST 6 L, ALT < 10 L, Alkaline Phosphatase 55 10/29/21 03:33: WBC 4.30, Hgb 7.3 L, Hct 24.1 L, Plt Count 253 Imagings Data: CT Abd/Pelvis [id number]: No acute intra-abdominal abnormality. Bulky fibroid uterus. Conclusions/Impression: HERMILA likely due to hypovolemia/ ATN but concerning for Lupus nephritis CKD III with proteinuria Lupus Nephritis -No NSAIDs -Continue IVF -Prednisone 40mg daily Hyperkalemia/ Hypokalemia -Replete potassium prn Acidosis -Reduce oral bicarb HTN with CKD -Continue Coreg BID -Continue Amlodipine Moderate malnutrition -Advance nutrition as tolerated -Consider Nepro Anemia in chronic illness Iron deficiency -Retacrit prn -IV iron prn Case reviewed with Dr. Pollack
[2021-11-04] MEDS: HYDROCODONE/APAP 5/325 MG TAB PO PRN (23:39)
[2021-11-05] MEDS: NACHLORIDE 0.45% 1,000 ML IV SCH (03:13)
[2021-11-05 04:32] LABS: Hematocrit 23.4 % (36.0-45.0); MPV 8.7 fL (7.6-11.3); RBC Red Blood Cell Count 3.46 M/uL (3.86-4.86)
[2021-11-05 04:53] LABS: Potassium 3.7 mmol/L (3.5-5.1)
[2021-11-05] MEDS: HYDROCODONE/APAP 5/325 MG TAB PO PRN (07:13)
[2021-11-05] MEDS ORDERED: POTASSIUM CL SA 10 MEQ TAB PO ONE (07:40)
[2021-11-05] MEDS ORDERED: SOD FERRIC GLUC COMPLX/SUCROSE 250 MG in NA CHLORIDE 0.9% 250 ML IV ONE (08:00)
[2021-11-05] MEDS ORDERED: EPOETIN ALFA-EPBX 10,000 UNIT/ML VIAL SQ ONE (09:00)
[2021-11-05] MEDS ORDERED: SODIUM BICARB 325 MG TAB PO SCH (09:00)
[2021-11-05] MEDS: CALCITROL 0.25 MCG CAP PO SCH (09:20)
[2021-11-05] MEDS: FAMOTIDINE 20 MG/2 ML VIAL IV SCH (09:20)
[2021-11-05] MEDS: carvediloL 12.5 MG TAB PO SCH (09:20)
[2021-11-05] MEDS: predniSONE 20 MG TAB PO SCH (09:20)
[2021-11-05] MEDS: VITAMIN D 5,000 UNIT CAP PO SCH (09:20)
[2021-11-05] MEDS: DOCUSATE NA 100 MG CAP PO SCH (09:21)
[2021-11-05] MEDS: AMLODIPINE 5 MG TAB PO SCH (09:21)
[2021-11-05] MEDS: CEFTRIAXONE 1,000 MG in NA CHLORIDE 0.9% 50 ML IVPB SCH (09:22)
[2021-11-05] MEDS: MYCOPHENOLATE PO SCH (09:55)
--- NOTE | 2021-11-05 11:56 | RAD REPORT ---
EXAM DESCRIPTION: US - Extremity Venous Uni Ltd - 11/05/2021 11:50 am CLINICAL HISTORY: r/o DVT Leg swelling and edema. COMPARISON: No comparisons FINDINGS: Left lower extremity venous system was interrogated with Doppler technique. Normal flow, c ompressibility and augmentation was noted. There is no DVT present.4.8 x 4.7 cm Hirsch's cyst. IMPRESSION: No evidence of left lower extremity deep venous thrombosis.
[2021-11-05 13:13] VITALS: BP 140/88; TEMP 98.5
--- NOTE | 2021-11-05 16:21 | P.DS ---
Admission Date: 10/28/21 Discharge Date: 11/05/21 Disposition: ROUTINE DISCHARGE Discharge Condition: FAIR Reason for Admission: Acute on chronic kidney disease/lupus nephritis Consultations: Nephrology - Dr. Potts Procedures: Problem List: Acute renal failure secondary to lupus nephritis rash secondary to SLE Proteinuria chronic anemia, microcytic, iron deficient Brief History of Present Illness: 31-year-old female with a history of systemic lupus erythematous. She came into the emergency room at [facility] feeling dehydrated. Her lab work-up revealed acute on chronic renal failure. Patient lupus has been poorly controlled. She has not been seeing her media associate. She has been on CellCept. She has not had her levels checked. She was transferred to our hospital for further work-up. Hospital Course: Patient was found to have acute renal failure. Nephrology was consulted. There is concern that this may be secondary to her lupus versus possibly dehydrated, or combination of the 2. She was treated with IV fluids and steroids, and she had gradual improvement. Biopsy of her kidney was performed, which revealed findings consistent with lupus nephritis She is discharged home to continue on high-dose steroids, 40 mg prednisone daily. She will follow-up with her it coordinator to continue to work on a taper. Patient states that she is planning to establish care with a new media associate as well. Patient's hemoglobin remained in the sevens, stable throughout her hospitalization. Work-up revealed significant iron deficiency, she received IV iron for several days. Patient reported to left lower extremity pain that occurred overnight and until the day of discharge. Reported this was similar to prior episodes she gets intermittently at home, which she attributed to "lupus pains", but was a little bit more severe overnight. Lower extremity ultrasound was negative for DVT, and patient had improvement in her pain. Incidentally noted Hirsch's cyst. Vital Signs/Physical Exam: Temp Pulse Resp BP Pulse Ox 98.5 F 73 16 140/88 98 11/05/21 12:00 11/05/21 12:00 11/05/21 12:00 11/05/21 12:00 11/05/21 12:00 Physical Exam: Gen: NAD, AOx3 HEENT: normal conjunctiva, sclera anicteric CV: Regular rate/rhythm, no edema Pulm: Clear to auscultation bilaterally, non-labored respirations on room air Abd: soft, nontender, non-distended Integumentary: no rash Laboratory Data at Discharge: WBC 11.40 K/uL (4.3-10.9) H 11/05/21 04:15 Hgb 7.2 g/dL (12.0-15.0) L 11/05/21 04:15 Hct 23.4 % (36.0-45.0) L 11/05/21 04:15 Plt Count 222 K/uL (152-406) 11/05/21 04:15 PT 12.2 SECONDS (9.5-12.5) 11/03/21 08:29 INR 1.11 11/03/21 08:29 APTT 24.6 SECONDS (24.3-36.9) 11/03/21 08:29 Sodium 140 mmol/L (136-145) 11/05/21 04:15 Potassium 3.7 mmol/L (3.5-5.1) 11/05/21 04:15 BUN 56 mg/dL (7-18) H 11/05/21 04:15 Creatinine 3.17 mg/dL (0.55-1.3) H 11/05/21 04:15 Glucose 112 mg/dL (74-106) H 11/05/21 04:15 Uric Acid 10.1 mg/dL (2.6-6.0) H 11/04/21 05:28 Phosphorus 3.9 mg/dL (2.5-4.9) 11/04/21 05:28 Magnesium 2.6 mg/dL (1.8-2.4) H 11/04/21 05:28 Total Bilirubin 0.1 mg/dL (0.2-1.0) L 10/31/21 03:13 AST 10 U/L (15-37) L 10/31/21 03:13 ALT 13 U/L (12-78) 10/31/21 03:13 Alkaline Phosphatase 48 U/L (45-117) 10/31/21 03:13 Home Medications: Amlodipine [Norvasc*] 5 mg PO DAILY 10/28/21 Mycophenolate Mofetil [Cellcept] 3 tab PO BID 10/28/21 Norgestimate-Ethinyl Estradiol [Tri-Sprintec Tablet] 1 each PO DAILY 10/28/21 Olmesartan/Hydrochlorothiazide [Olmesartan-Hctz 40-12.5 mg Tab] 1 each PO DAILY 10/28/21 carvediloL [Coreg*] 25 mg PO BID 10/28/21 predniSONE [Prednisone*] 5 mg PO DAILY 10/28/21 Hydrocodone 5/APAP 325 [[place] 5/325*] 1 tab PO Q8H PRN 3 Days #5 tab 11/05/21 predniSONE [Prednisone] 2 tab PO DAILY 30 Days #60 tablet 11/05/21 New Medications: Hydrocodone 5/APAP 325 [[place] 5/325*] 1 tab PO Q8H PRN 3 Days #5 tab PRN Reason: Pain Scale 5-7 (Moderate) predniSONE [Prednisone] 2 tab PO DAILY 30 Days #60 tablet Physician Discharge Instructions: Patient was found to have acute renal failure. Nephrology was consulted. There is concern that this may be secondary to her lupus versus possibly dehydrated, or combination of the 2. She was treated with IV fluids and steroids, and she had gradual improvement. Biopsy of her kidney was performed, and to follow-up with her it coordinator final pathology report. She is discharged home to continue on high-dose steroids, 40 mg prednisone daily. She will follow-up with her it coordinator to continue to work on a taper. Patient states that she is planning to establish care with a new media associate as well. Diet: Regular Activity: Ad brown Followup: Reilly Potts DO [ACTIVE - CAN ADMIT] - (Call to schedule appointment) Time spent managing pt's care (in minutes): 45
== END 2021-11-05 14:48 | disposition home or self-care (01) | DRG 683 ==
LOC: 2ND 15:32
PROVIDERS: ADMIT Hospitalist; ATTEND Hospitalist
PROC: 02HV33Z Insertion of Infusion Device into Superior Vena Cava, Percutaneous Approach (ICD-10-PCS; principal; 2021-11-01)
DX: N17.9 Acute kidney failure, unspecified (principal); E87.2 Acidosis; E44.0 Moderate protein-calorie malnutrition; I12.9 Hypertensive chronic kidney disease with stage 1 through stage 4 chronic kidney disease, or unspecified chronic kidney disease; N18.30 Chronic kidney disease, stage 3 unspecified; D50.9 Iron deficiency anemia, unspecified; M32.14 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 lupus erythematosus; E87.6 Hypokalemia; M71.20 Synovial cyst of popliteal space [Baker], unspecified knee; M32.9 Systemic lupus erythematosus, unspecified; E87.5 Hyperkalemia; R21 Rash and other nonspecific skin eruption; R80.9 Proteinuria, unspecified; Z79.52 Long term (current) use of systemic steroids; Z79.899 Other long term (current) drug therapy; Z68.33 Body mass index [BMI] 33.0-33.9, adult
CPT/HCPCS: 36415; 36569; 71045; 80048; 80053; 80069; 81001; 81003; 81015; 82550; 82570; 82607; 82746; 83036; 83540; 83735; 84100; 84132; 84156; 84300; 84466; 84550; 85025; 85027; 85610; 85652; 85730; 86140; 86160; 86225; 86317; 86704; 87086; 87088; 87340; 88300; 93005; 93971; J2250; J2310; J2916; J2930; J3010; J3480; J7030; J7040; J7050; J7120; J7512; Q5106

== ENCOUNTER 2022-01-18 09:17 | Observation (INO) | payer BC ==
--- OUTSIDE RECORDS SUMMARY | 2022-01-18 09:21 | XMS REPORT | Continuity of Care Document ---
:1990 Author Organization [facility] t Address [address] [place] [address] Care Team Providers Name Role Phone Rubia Joseph DO Primary Care Physician HO Attending Clinician Unavailable Pob, Lab Main Attending Clinician Unavailable Sherly TORRES Attending Clinician SHERLY Attending Clinician Unavailable Doctor Unassigned, Name Attending Clinician Unavailable Rubia Joseph DO Attending Clinician Rubia JOSEPH Attending Clinician Unavailable JOHNNA ROLLE Attending Clinician Unavailable BRADEN Attending Clinician Unavailable UNKNOWN Attending Clinician Unavailable WILLIE Admitting Clinician Unavailable BRADEN Admitting Clinician Unavailable Payers Payer Name Policy Type Policy Number Effective Date Expiration Date S [place] 2 [id number] 2021 00:00:00 [employer] [facility] CARE [id number] 2014 00:00:00 Problems Condition Condition Condition Status Onset Resolution Last Treating Co mments Source Name Details Category Date Date Treatment Clinician Date Lupus Lupus Disease Active [facility] ity of [facility] Allergies, Adverse Reactions, Alerts Allergy Allergy Status Severity Reaction(s) Onset Inactive Treating Comm ents Source Name Type Date Date Clinician MELOXICA DRUG Active Unknown-Cmnt Dhruv TRAORE 03-12 ity of 00:00: [place] 00 Medical Branch KETOROLA DRUG Active Unknown-Cmnt Un yasmani C INGREDI 03-12 ity of 00:00: [place] 00 Medical Branch Meloxica Propensi Active Unknown - Uni vers m ty to See comments 03-12 ity of adverse 00:00: [place] reaction 00 Medical s Branch Ketorola Propensi Active Unknown - Uni vers c ty to See comments 03-12 ity of adverse 00:00: [place] reaction Medical s Branch Social History Social Habit Start Date Stop Date Quantity Comments Source Tobacco use and 2017-03-12 2017-03-12 Never used [facility] exposure 00:00:00 00:00:00 Medical Branch Sex Ass[birth year] [facility] 00:00:00 00:00:00 Medical Branch Smoking Status Start Date Stop Date Source Never smoker [facility] Medical Branch Medications Ordered Filled Start Stop Current Ordering Indication Dosage Frequency Signature Comments Components Source Medication Medication Date Date Medication? Clinician (SIG) Name Name predniSONE 2020-0 Yes 5mg Take 5 mg Un yasmani 5 mg tablet 2-24 by mouth ity of 18:51: daily. [address] Branch mycophenola 2020-0 Yes 500mg Take 500 U nivers te mofetil 2-24 mg by ity of (CELLCEPT[place] 18:[place] 16 (two) Medical tablet times Branch daily. carvedilol 2020-0 Yes 12.5mg Take 12.5 Univers 12.5 mg 2-24 mg by ity of tablet 18:51: mouth 2 [place] [address] (two) Medical times Branch daily with meals. predniSONE 2020-0 Yes 5mg Take 5 mg Un yasmani 5 mg tablet 2-24 by mouth ity of 18:51: daily. [address] Branch mycophenola 2020-0 Yes 500mg Take 500 U nivers te mofetil 2-24 mg by ity of (CELLCEPT) 18:51: [place] mg 16 (two) Medical tablet times Branch daily. carvedilol 2020-0 Yes 12.5mg Take 12.5 Univers 12.5 mg 2-24 mg by ity of tablet 18:51: mouth 2 [place] [address] (two) Medical times Branch daily with meals. predniSONE 2020-0 Yes 5mg Take 5 mg Un yasmani 5 mg tablet 2-24 by mouth ity of 18:51: daily. [place] [address] Medical Branch mycophenola 2020-0 Yes 500mg Take 500 U nivers te mofetil 2-24 mg by ity of (CELLCEPT) 18:51: [place] 500 mg 16 (two) Medical tablet times Branch daily. carvedilol 2020-0 Yes 12.5mg Take 12.5 Univers 12.5 mg 2-24 mg by ity of tablet 18:51: mouth 2 [place] 16 (two) Medical times Branch daily with meals. predniSONE 2020-0 Yes 5mg Take 5 mg Un yasmani 5 mg tablet 2-24 by mouth ity of 18:51: daily. [place] [address] Medical Branch mycophenola 2020-0 Yes 500mg Take 500 U nivers te mofetil 2-24 mg by ity of (CELLCEPT) 18:51: [place] 500 mg 16 (two) Medical tablet times Branch daily. carvedilol 2020-0 Yes 12.5mg Take 12.5 Univers 12.5 mg 2-24 mg by ity of tablet 18:51: mouth 2 [place] 16 (two) Medical times Branch daily with meals. hydrOXYzine 2020-0 Yes [id number] 25mg Take 1 Univers 25 mg 2-24 tablet by ity of tablet 00:00: mouth [place] 00 every 6 Medical (six) Branch hours as needed for Itching. hydrOXYzine 2020-0 Yes [id number] 25mg Take 1 Univers 25 mg 2-24 tablet by ity of tablet 00:00: mouth [place] 00 every 6 Medical (six) Branch hours as needed for Itching. hydrOXYzine 2020-0 Yes [id number] 25mg Take 1 Univers 25 mg 2-24 tablet by ity of tablet 00:00: mouth [place] 00 every 6 Medical (six) Branch hours as needed for Itching. hydrOXYzine 2020-0 Yes [id number] 25mg Take 1 Univers 25 mg 2-24 [...] Procedure Date / Time Performed Performing Clinician [facility] e PHYSICIAN ORDERS 2021-11-14 05:01:00 Doctor Unassigned, No Unive rsity of [facility] PHYSICIAN ORDERS 2021-09-02 06:01:00 Doctor Unassigned, No Unive rsity of [facility] Encounters Start End Encounter Admission Attending Care Care Encounter Source Date/Time Date/Time Type Type Clinicians Facility Department ID 2022-01-12 2022-01-12 Outpatient SOPHIE BLANCO [id number] Sophie 15:45:00 15:45:00 TOBI dinh 2021-11-14 2021-11-14 Feltmaker Harjit, Diya Lab Main [facility] 1.2.8 40.114 [id number] Univers 16:15:00 16:30:00 Visit Felicita Dubois [id number] [facility] [id number] Luis M robertson PROFESSIO [phone] In dical [address] 2021-11-14 2021-11-14 Outpatient Lia DUBOIS [facility] [id number] Univers 16:15:00 16:15:00 FELICITA [id number] ity of [facility] 2021-11-14 2021-11-14 Outpatient Lia DUBOIS [facility] [id number] Univers 16:15:00 16:15:00 FELICITA itmilena [facility] 2021-11-14 2021-11-14 Orders Doctor KEY [id number] Univers 00:00:00 00:00:00 Only UnassZAN venegas [id number] ity of [place] [facility] [id number] [place] [phone] [facility] 009 [place] 2021-09-02 2021-09-02 Feltmaker Harjit, Diya Lab Main [facility] 1.2.8 40.114 [id number] Univers 16:15:00 16:30:00 Visit Grace Joseph [id number] ity of [id number] [phone] In dical [facility] 2021-09-02 2021-09-02 Outpatient R [facility] [id number] Univers 16:15:00 16:15:00 [id number] ity [facility] 2021-09-02 2021-09-02 Outpatient R OPAL [facility] [id number] Univers 16:15:00 16:15:00 GRACE [facility] 2021-09-02 2021-09-02 Orders Doctor SHAHID [id number] Univers 00:00:00 00:00:00 Only Unassigned, ZAN [id number] ity of [place] [facility] [id number] [place] as [phone] [address] 2021-04-04 2021-04-11 Inpatient JAKC ROLLE SW [facility] [id number] [facility] 23:38:00 16:51:00 2021-04-03 2021-04-04 Inpatient Davey FELICIANO [facility] MED [id number] [facility] 21:43:00 23:00:00 HONORIO 2021-03-19 2021-03-19 Outpatient R [facility] [id number] Univers 17:15:00 17:15:00 [id number] ity [facility] 2021-03-19 2021-03-19 Outpatient R OPAL [facility] [id number] Univers 17:15:00 17:15:00 GRACE ity [facility] 2021-01-22 2021-01-22 Outpatient R [facility] [id number] Univers 12:45:00 12:45:00 [id number] ity [facility] 2021-01-22 2021-01-22 Outpatient R OPAL, [facility] [id number] Univers 12:45:00 12:45:00 GRACE milena [facility] 2021-01-21 2021-01-21 Outpatient [facility] [id number] Univers 11:30:00 11:30:00 [id number] itmilena [facility] 2021-01-21 2021-01-21 Outpatient R OPAL, [facility] [id number] Univers 11:30:00 11:30:00 GRACE [facility] 2020-02-07 2020-02-07 Feltmaker Harjit [facility] [id number] 17:26:43 17:41:43 Visit Lab Main [place] [id number] [place] [id number] Professirving [phone] [address] 2020-02-07 2020-02-07 Outpatient R [facility] [id number] Univers 17:00:00 17:00:00 [id number] [facility] 2020-02-07 2020-02-07 [facility] [id number] Univers 17:00:00 17:00:00 [facility] 2020-02-07 2020-02-07 Orders Doctor SHAHID [id number] 00:00:00 00:00:00 Only Unassigned, ZAN [id number] [place] [facility] [id number] 2019-11-02 2019-11-02 Feltmaker Harjit [facility] [id number] 10:22:24 10:37:24 Visit Lab Main [place] [id number] [place] [id number] Professio [phone] [address] 2019-11-02 2019-11-02 [facility] [id number] Univers 10:15:00 10:15:00 GRACE [facility] 2019-11-02 2019-11-02 Outpatient R [facility] [id number] Univers 10:15:00 10:15:00 [id number] [facility] 2019-11-02 2019-11-02 Orders Doctor SHAHID [id number] 00:00:00 00:00:00 Only Unassigned, ZAN [id number] [place] [facility] [id number] 2019-10-16 2019-10-16 Outpatient R [facility] [id number] Univers 18:30:00 18:30:00 [id number] [facility] 2019-10-16 2019-10-16 Outpatient R UNKNOWN, [facility] [id number] Univers 18:30:00 18:30:00 ATTENDING [facility] Results This patient has no known results.
[2022-01-18 10:06] LABS: Urine Blood Trace-intact (Negative); Urine Glucose Negative (Negative); Urine Protein 2+ (Negative); Urine pH 5.5 (5.0-7.0)
[2022-01-18] MEDS ORDERED: MORPHINE 4 MG/ML SYR ONE (10:13)
[2022-01-18] MEDS ORDERED: ONDANSETRON 4 MG/2 ML VIAL ONE (10:13)
[2022-01-18] MEDS ORDERED: FAMOTIDINE 20 MG/2 ML VIAL IV ONE (10:13)
[2022-01-18] MEDS ORDERED: NA CHLORIDE 0.9% 1,000 ML ONE (10:13)
[2022-01-18 10:21] LABS: Hematocrit 23.2 % (36.0-45.0); Lymphocytes % 23.1 % (15.3-44.8); MPV 7.3 fL (7.6-11.3)
[2022-01-18 10:28] LABS: Albumin 2.6 g/dL (3.4-5.0); Bilirubin Total 0.2 mg/dL (0.2-1.0); Potassium 3.8 mmol/L (3.5-5.1); Protein, Total 5.1 g/dL (6.4-8.2)
[2022-01-18 12:04] LABS: Platelet Estimate ADEQ; White Blood Cell Scan OK (OK)
[2022-01-18 12:05] LABS: Anisocytosis 1+; Blood Morphology Comment NOTED (NOT SEEN); Hypochromasia 1+; Poikilocytosis 1+
[2022-01-18] MEDS ORDERED: FENTANYL CITR 100 MCG/2 ML ONE (12:28)
--- NOTE | 2022-01-18 12:39 | EDPHYS ---
Physician Documentation [facility] Name: Arianne Mendez Age: 31 yrs Sex: Female : 1990 Arrival Date: 01/18/2022 Time: 09:19 Bed 17 Private MD: Reilly Potts ED Physician Herminio Coronado HPI: 01/18 14:02 This 31 yrs old Black Female presents to ER via Ambulatory with complaints of kidney kdr pain, dehydration. 14:02 Patient has been feeling poorly for the last 2 to 3 days. The last 24 hours, she has kdr had persistent and profuse diarrhea. She denies blood in her stool. She denies black tarry stools. She states she has lupus and that she sometimes gets bouts of diarrhea. She also indicated that the lupus has played havoc with her kidneys. She is under the care of Dr. Potts. She appears mildly uncomfortable, she does not appear toxic. She has had some nausea but no vomiting. She is otherwise in her usual state of health.. Onset: The symptoms/episode began/occurred gradually, 3 day(s) ago. Severity of symptoms: At their worst the symptoms were mild moderate just prior to arrival. The patient has not experienced similar symptoms in the past. The patient has not recently seen a physician. Patient states that she has episodes like this from time to time. . 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 - Social history:: Smoking status: Patient denies any tobacco usage or history of. ROS: 14:02 Constitutional: Negative for fever, chills, and weight loss, Eyes: Negative for injury, kdr pain, redness, and discharge, ENT: Negative for injury, pain, and discharge, Neck: Negative for injury, pain, and swelling, Cardiovascular: Negative for chest pain, palpitations, and edema, Respiratory: Negative for shortness of breath, cough, wheezing, and pleuritic chest pain, Back: Negative for injury and pain, Skin: Negative for injury, rash, and discoloration, Neuro: Negative for headache, weakness, numbness, tingling, and seizure activity. Psych: Negative for depression, anxiety, suicide ideation, homicidal ideation, and hallucinations, Allergy/Immunology: Negative for hives, rash, and allergies, Endocrine: Negative for neck swelling, polydipsia, polyuria, polyphagia, and marked weight changes, Hematologic/Lymphatic: Negative for swollen nodes, abnormal bleeding, and unusual bruising. 14:02 Abdomen/GI: Positive for abdominal pain, nausea, diarrhea, Negative for dysphagia, black/tarry stool, rectal pain, rectal bleeding, bowel incontinence. Exam: 14:02 Constitutional: This is a well developed, well nourished patient who is awake, alert, kdr and in no acute distress. Head/Face: Normocephalic, atraumatic. Eyes: Pupils equal round and reactive to light, extra-ocular motions intact. Lids and lashes normal. Conjunctiva and sclera are non-icteric and not injected. Cornea within normal limits. Periorbital areas with no swelling, redness, or edema. Neck: Trachea midline, no thyromegaly or masses palpated, and no cervical lymphadenopathy. Supple, full range of motion without nuchal rigidity, or vertebral point tenderness. No Meningismus. Chest/axilla: Normal chest wall appearance and motion. Nontender with no deformity. No lesions are appreciated. Cardiovascular: Regular rate and rhythm with a normal S1 and S2. No gallops, murmurs, or rubs. Normal PMI, no JVD. No pulse deficits. Respiratory: Lungs have equal breath sounds bilaterally, clear to auscultation and percussion. No rales, rhonchi or wheezes noted. No increased work of breathing, no retractions or nasal flaring. Skin: Warm, dry with normal turgor. Normal color with no rashes, no lesions, and no evidence of cellulitis. Neuro: Awake and alert, GCS 15, oriented to person, place, time, and situation. Cranial nerves II-XII grossly intact. Motor strength 5/5 in all extremities. Sensory grossly intact. Cerebellar exam normal. Normal gait. Psych: Awake, alert, with orientation to person, place and time. Behavior, mood, and affect are within normal limits. 14:02 Abdomen/GI: Inspection: obese Bowel sounds: active, Palpation: soft, mild abdominal tenderness, in all quadrants, Rectal exam: rectal tone normal, Stool: normal, hemorrhoid(s), external, the exam is chaperoned by the nurse. Vital Signs: 09:30 BP 140 / 87; Pulse 91; Resp 16; Temp 98.1; Pulse Ox 100% on R/A; Weight 90.72 kg; iw Height 5 ft. 3 in. (160.02 cm); Pain 8/10; 12:00 BP 125 / 76; Pulse 86; Resp 18; Pulse Ox 100% ; Pain 8/10; jh6 13:00 BP 130 / 78; Pulse 90; Resp 18; Pulse Ox 100% ; Pain 6/10; jh6 14:00 BP 135 / 84; Pulse 85; Resp 16; Pulse Ox 98% ; Pain 7/10; jh6 15:00 BP 130 / 82; Pulse 83; Resp 16; Pulse Ox 100% ; Pain 3/10; jh6 16:00 BP 131 / 84; Pulse 83; Resp 17; Pulse Ox 100% ; Pain 3/10; jh6 09:30 Body Mass Index 35.43 (90.72 kg, 160.02 cm) iw MDM: 12:38 Patient medically screened. kdr 14:02 Data reviewed: vital signs, nurses notes, lab test result(s), radiologic studies. kdr Counseling: I had a detailed discussion with the patient and/or guardian regarding: the historical points, exam findings, and any diagnostic results supporting the discharge/admit diagnosis, lab results, radiology results, the need for further work-up and treatment in the hospital. 01/18 09:37 Order name: CBC with Diff kdr 01/18 09:37 Order name: CMP; Complete Time: 10:30 kdr 01/18 09:37 Order name: Lipase; Complete Time: 10:30 kdr 01/18 10:06 Order name: Urine Dipstick-Ancillary; Complete Time: 10:30 EDMS 01/18 10:30 Order name: CBC Smear Scan EDMS 01/18 10:31 Order name: Type And Screen kdr 01/18 10:35 Order name: Bb Add On eb 01/18 10:38 Order name: Packed RBC Leukored EDMS 01/18 10:43 Order name: SARS-COV-2 RT PCR (Document "Date of Onset" if Symptomatic); Complete Time: eb 12:20 01/18 14:07 Order name: CBC with Automated Diff EDMS 01/18 14:07 Order name: CBC with Automated Diff EDMS 01/18 14:07 Order name: Comprehensive Metabolic Panel EDMS 01/18 14:07 Order name: Comprehensive Metabolic Panel EDMS 01/18 12:31 Order name: US Extremity Venous Unilateral Ltd; Complete Time: 14:46 kdr 01/18 14:07 Order name: UR CREAT EDMS 01/18 14:07 Order name: UR SODIUM EDMS 01/18 14:07 Order name: Magnesium EDMS 01/18 14:07 Order name: Magnesium EDMS 01/18 14:07 Order name: Magnesium EDMS 01/18 14:07 Order name: Magnesium EDMS 01/18 14:08 Order name: Transferrin Sat/Iron Binding EDMS 01/18 15:48 Order name: Retic Count EDMS 01/18 15:59 Order name: Lactic Dehydrogenase EDMS 01/18 09:37 Order name: IV Saline Lock; Complete Time: 10:02 kdr 01/18 09:37 Order name: Labs collected and sent; Complete Time: 10:02 kdr 01/18 09:37 Order name: Urine Dipstick-Ancillary (obtain specimen); Complete Time: 10:02 kdr 01/18 12:29 Order name: Labs - recollect needed: please recollect T\\T\\S/ clotted/ and gel pen eb 01/18 14:06 Order name: Renal EDMS 01/18 14:09 Order name: CONS Physician Consult EDMS Administered Medications: 10:14 Drug: Pepcid (famotidine) 20 mg Route: IVP; Site: left antecubital; jh6 11:03 Follow up: Response: No adverse reaction jh6 10:14 Drug: Zofran (Ondansetron) 4 mg Route: IVP; Site: left antecubital; jh6 11:03 Follow up: Response: Nausea is decreased jh6 10:14 Drug: morphine 4 mg Route: IVP; Site: left antecubital; jh6 11:03 Follow up: Response: No adverse reaction jh6 10:15 Drug: NS 0.9% 1000 ml Route: IV; Rate: 1 bolus; Site: left antecubital; jh6 11:04 Follow up: Response: No adverse reaction jh6 12:29 Drug: fentaNYL (PF) 50 mcg Route: IVP; Site: left forearm; 6 Disposition Summary: 01/18/22 12:38 Hospitalization Ordered Hospitalization Status: Inpatient Admission kdr Provider: Kanchan Lacy Location: Telemetry/MedSurg (Inpatient) kdr Condition: Fair kdr Problem: an acute exacerbation kdr Symptoms: have improved kdr Bed/Room Type: Standard kdr Room Assignment: 208(01/18/22 14:30) eb Diagnosis - Anemia, unspecified kdr - Dehydration kdr - Renal Failure kdr Forms: - Medication Reconciliation Form kdr - SBAR form kdr Signatures: Dispatcher [employer] EDMS Herminio Coronado MD MD kdr Elaine Otoole RN RN iw Botello, Elizabeth eb Hastedt, Jennifer, RN RN jh6 Corrections: (The following items were deleted from the chart) 14:08 14:06 CONS Physician Consult ordered. EDAL EDAL 14:30 12:38 kdr eb
--- NOTE | 2022-01-18 12:39 | ER ---
Nurse's Notes [facility] Name: Arianne Mendez Age: 31 yrs Sex: Female : 1990 Arrival Date: 01/18/2022 Time: 09:19 Bed 17 Private MD: Reilly Potts Diagnosis: Anemia, unspecified;Dehydration;Renal Failure Presentation: 01/18 09:30 Chief complaint: Patient states: has hx of kidney failure, not on dialysis, was up all iw night with diarrhea, now has fatigue and pain all over body, has hx of lupus. Coronavirus screen: At this time, the client does not indicate any symptoms associated with coronavirus-19. Ebola Screen: Patient negative for fever greater than or equal to 101.5 degrees Fahrenheit, and additional compatible Ebola Virus Disease symptoms Patient denies exposure to infectious person. Patient denies travel to an Ebola-affected area in the 21 days before illness onset. No symptoms or risks identified at this time. Initial Sepsis Screen: Does the patient meet any 2 criteria? No. Patient's initial sepsis screen is negative. Does the patient have a suspected source of infection? No. Patient's initial sepsis screen is negative. Risk Assessment: Do you want to hurt yourself or someone else? Patient reports no desire to harm self or others. Onset of symptoms was January 17, 2022. 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 - Social history:: Smoking status: Patient denies any tobacco usage or history of. Screenin:40 Abuse screen: Denies threats or abuse. [facility] 09:40 Nutritional screening: No deficits noted. Tuberculosis screening: No symptoms or risk [facility] factors identified. Fall Risk Assessment: 09:40 General: Appears distressed, uncomfortable, Behavior is cooperative, restless. 6 09:40 Pain: Complains of pain in right leg and left leg Pain currently is 10 out of 10 on a 6 pain scale. Quality of pain is described as aching, sharp, shooting, Pain began 1 day ago. Is continuous, Aggravated by increased activity. Neuro: No deficits noted. Cardiovascular: No deficits noted. Respiratory: No deficits noted. GI: Abdomen is obese, Bowel sounds present X 4 quads. Abd is soft. 10:45 Reassessment: No changes from previously documented assessment. Patient is alert, jh6 oriented x 3, equal unlabored respirations, skin warm/dry/pink. 12:00 Reassessment: Patient and/or family updated on plan of care and expected duration. Pain jh6 level reassessed. Patient is alert, oriented x 3, equal unlabored respirations, skin warm/dry/pink. Patient states feeling better. Vital Signs: 09:30 BP 140 / 87; Pulse 91; Resp 16; Temp 98.1; Pulse Ox 100% on R/A; Weight 90.72 kg; iw Height 5 ft. 3 in. (160.02 cm); Pain 8/10; 12:00 BP 125 / 76; Pulse 86; Resp 18; Pulse Ox 100% ; Pain 8/10; jh6 13:00 BP 130 / 78; Pulse 90; Resp 18; Pulse Ox 100% ; Pain 6/10; jh6 14:00 BP 135 / 84; Pulse 85; Resp 16; Pulse Ox 98% ; Pain 7/10; jh6 15:00 BP 130 / 82; Pulse 83; Resp 16; Pulse Ox 100% ; Pain 3/10; jh6 16:00 BP 131 / 84; Pulse 83; Resp 17; Pulse Ox 100% ; Pain 3/10; jh6 09:30 Body Mass Index 35.43 (90.72 kg, 160.02 cm) iw ED Course: 09:19 Patient arrived in ED. am2 09:19 Reilly Potts DO is Private Physician. am2 09:22 Herminio Coronado MD is Attending Physician. kdr 09:31 Triage completed. iw 09:32 Arm band placed on. iw 09:43 Jennifer Hart RN is Primary Nurse. jh6 10:04 Initial lab(s) drawn, by al, sent to lab. Inserted saline lock: 22 gauge in left tm3 antecubital area, using aseptic technique. 10:06 Urine collected: clean catch specimen, clear. tm3 11:09 COVID swab sent to lab. T\T\S. tm3 12:00 Inserted saline lock: 24 gauge in left forearm, using aseptic technique. jh6 12:36 Kanchan Lacy MD is Hospitalizing Provider. kdr 13:04 US Extremity Venous Unilateral Ltd In Process Unspecified. EDMS 17:11 Inserted saline lock: 24 gauge in left. jh6 Administered Medications: 10:14 Drug: Pepcid (famotidine) 20 mg Route: IVP; Site: left antecubital; jh6 11:03 Follow up: Response: No adverse reaction jh6 10:14 Drug: Zofran (Ondansetron) 4 mg Route: IVP; Site: left antecubital; jh6 11:03 Follow up: Response: Nausea is decreased jh6 10:14 Drug: morphine 4 mg Route: IVP; Site: left antecubital; jh6 11:03 Follow up: Response: No adverse reaction jh6 10:15 Drug: NS 0.9% 1000 ml Route: IV; Rate: 1 bolus; Site: left antecubital; jh6 11:04 Follow up: Response: No adverse reaction jh6 12:29 Drug: fentaNYL (PF) 50 mcg Route: IVP; Site: left forearm; jh6 Outcome: 12:38 Decision to Hospitalize by Provider. kdr 17:12 Patient left the ED. jh6 Signatures: Dispatcher [employer] EDMO Mariano Maher tm3 Herminio Coronado MD MD kdr Elaine Otoole, Mishel Guerrero RN 2 Jennifer Hart RN RN jh6
--- NOTE | 2022-01-18 13:26 | RAD REPORT ---
EXAM DESCRIPTION: US - Extremity Venous Uni Ltd - 01/18/2022 1:02 pm CLINICAL HISTORY: PAIN Leg swelling and edema. COMPARISON: Extremity Venous Uni Ltd dated 11/05/2021 FINDINGS: Left lower extremity venous system was interrogated with Doppler technique. Normal flow, c ompressibility and augmentation was noted. There is no DVT present. IMPRESSION: No evidence of left lower extremity deep venous thrombosis.
[2022-01-18] MEDS ORDERED: MORPHINE 2 MG/ML SYR IV PRN (13:58)
[2022-01-18] MEDS ORDERED: ALBUTEROL 2.5 MG/3 ML NEB SOL NEB PRN (13:58)
[2022-01-18] MEDS ORDERED: ONDANSETRON 4 MG/2 ML VIAL IV PRN (13:58)
[2022-01-18] MEDS ORDERED: ACETAMINOPHEN 500 MG TAB PO PRN (13:58)
[2022-01-18] MEDS ORDERED: HYDRALAZINE HCL 20 MG/ML VIAL IV PRN (14:02)
[2022-01-18] MEDS ORDERED: Oxycodone HCl/Acetaminophen 1 TAB TAB PO PRN (14:02)
[2022-01-18] MEDS ORDERED: HYDROMORPHONE HCL 1 MG/ML INJ ONE (14:08)
--- NOTE | 2022-01-18 14:13 | P.HP ---
Certification for Inpatient Patient admitted to: Observation With expected LOS: >2 Midnights Patient will require the following post-hospital care: None Practitioner: I am a practitioner with admitting privileges, knowledge of patient current condition, hospital course, and medical plan of care. Services: Services provided to patient in accordance with Admission requirements found in Title 42 Section 412.3 of the Code of Federal Regulations Patient History Date of Service: 01/18/22 Reason for admission: Weakness History of Present Illness: 81-year-old female with history of SLE, recently diagnosed lupus nephritis with renal biopsy 2 months ago showing combined class IV and V disease , progressive CKD with baseline creatinine from 0.7 17-months ago ranging to 4.1 2-months ago; started on CellCept/prednisone, iron deficiency anemia presented because of increasing weakness fatigue and feeling unwell. She has also been complaining of left lower leg pain. On arrival in the ED she was noted with low H&H of 6.8. She was also noted with elevated creatinine at 3.2 with associated metabolic acidosis with bicarb of 16. She follows with Dr. Potts as outpatient. She is being prepped for PRBC now. She has been admitted for further observation She denies any recent NSAID use.. She denies any hematuria or hematochezia or hematemesis. Guaiac stool in the emergency room was negative Allergies No Known Drug Allergies Allergy (Verified 03/12/15 23:34) Unknown Home Medications: Amlodipine [Norvasc*] 5 mg PO DAILY 10/28/21 Mycophenolate Mofetil [Cellcept] 3 tab PO BID 10/28/21 Norgestimate-Ethinyl Estradiol [Tri-Sprintec Tablet] 1 each PO DAILY 10/28/21 Olmesartan/Hydrochlorothiazide [Olmesartan-Hctz 40-12.5 mg Tab] 1 each PO DAILY 10/28/21 carvediloL [Coreg*] 25 mg PO BID 10/28/21 predniSONE [Prednisone*] 5 mg PO DAILY 10/28/21 Hydrocodone 5/APAP 325 [[place] 5/325*] 1 tab PO Q8H PRN 3 Days #5 tab 11/05/21 predniSONE [Prednisone] 2 tab PO DAILY 30 Days #60 tablet 11/05/21 - Past Medical/Surgical History Diabetic: No -: Lupus -: HTN -: Lupus nephritis -: anemia -: oral surgery -: dialysis catheter and removal - Family History Brother -: Other (see notes) Notes: celiac disease. brain malformation. crohns - Social History Smoking Status: Never smoker Alcohol use: No CD- Drugs: No Caffeine use: Yes Review of Systems 10-point ROS is otherwise unremarkable General: Weakness Physical Examination - Physical Exam General: Alert, In no apparent distress, Oriented x3 HEENT: Atraumatic, Normocephalic, PERRLA, Other (Mild periorbital edema) Neck: Supple, 2+ carotid pulse no bruit Respiratory: Clear to auscultation bilaterally, Normal air movement Cardiovascular: No edema, Normal pulses, Regular rate/rhythm, Normal S1 S2 Gastrointestinal: Normal bowel sounds, Hypoactive, Soft and benign Musculoskeletal: No clubbing, No swelling Integumentary: No rashes, No breakdown Neurological: Normal speech, Normal strength at 5/5 x4 extr, Normal tone - Studies Laboratory Data (last 24 hrs) 01/18/22 10:05: Sodium 144, Potassium 3.8, BUN 56 H, Creatinine 3.18 H, Glucose 96, Total Bilirubin 0.2, AST 7 L, ALT 25, Alkaline Phosphatase 55, Lipase 490 H 01/18/22 10:05: WBC 8.8, Hgb 6.8 L*, Hct 23.2 L, Plt Count 211 Assessment and Plan - Advance Directives Does patient have a Living Will: No Does patient have a Durable POA for Healthcare: No Physician Review: Patient Assessed, Agree with Above Assessment and Plan Physician Review Additional Text: Impression Iron deficiency anemiasymptomatic SLE Acute kidney injury on baseline CKDmay be due to lupus nephritis Hypertension Metabolic acidosis Plan We will admit patient to observation Will start sodium bicarb drip for correction of metabolic acidosis May need Lasix given mild periorbital edema/fluid overload status Start IV Solu-Medrol for now given likely active lupus nephritis Continue CellCept Follow BMP daily Consult nephrology to follow for acute kidney injury PRBC 2 units now Follow repeat iron level pre blood transfusion if still low may need IV iron loading Can follow CEZAR as outpatient to see if recent lupus flare causing anemia Obtain LDH as well as haptoglobin to rule out hemolysis Resume blood pressure regimen As needed pain regimen Left lower extremity Doppler ultrasound negative for DVT Subcutaneous heparin for DVT prophylaxis Possible discharge in a.m. if improving creatinine
[2022-01-18] MEDS ORDERED: CALCIUM GLUCONATE 1 GM IVPB 2 GM/100 ML BAG IV SCH (14:15)
[2022-01-18] MEDS: WATER FOR INJ,STERILE 1,000 ML with NA BICARB 8.4% 150 MEQ IV SCH ×2 (15:00)
[2022-01-18] MEDS ORDERED: LORAZEPAM 0.5 MG TABLET PO PRN ×2 (15:13→16:00)
[2022-01-18] MEDS ORDERED: CALCIUM GLUCONATE 1 GM IVPB 2 GM/100 ML BAG IV ONE (15:42)
[2022-01-18 15:46] LABS: RBC Red Blood Cell Count 3.28 M/uL (3.86-4.86)
[2022-01-18 15:56] LABS: Magnesium 1.9 mg/dL (1.8-2.4)
[2022-01-18] MEDS ORDERED: FUROSEMIDE 40 MG/4 ML VIAL IV ONE (16:00)
[2022-01-18] MEDS ORDERED: POTASSIUM 25 MEQ EFFERV TAB PO ONE (16:00)
[2022-01-18] MEDS: METHYLPREDNISOLONE 125 MG INJ IV SCH (17:49)
[2022-01-18] MEDS: HEPARIN 5000 UNIT/ML 1 ML VIAL SQ SCH (20:09)
[2022-01-18] MEDS: FAMOTIDINE 20 MG TAB PO SCH (20:09)
[2022-01-18 20:10] VITALS: BMI 35.4
[2022-01-18] MEDS ORDERED: NA CHLORIDE 0.9% 250 ML ONE (20:24)
[2022-01-19] MEDS: METHYLPREDNISOLONE 125 MG INJ IV SCH ×3 (00:21→11:55)
[2022-01-19 01:02] LABS: Urine Appearance Clear (Clear); Urine Bilirubin Negative (Negative); Urine Blood Trace-lysed (Negative); Urine Color Yellow (Yellow); Urine Glucose Negative (Negative); Urine Protein 2+ (Negative); Urine Specific Gravity 1.015 (1.005-1.030); Urine Urobilinogen 0.2 mg/dL (0.2-1.0)
[2022-01-19 01:06] LABS: Urine Microscopic Reflex ORDER UMIC
[2022-01-19 01:07] LABS: Urine Bacteria <20 /HPF (<20); Urine RBC <5 /HPF (NONE SEEN)
[2022-01-19 01:12] LABS: UR PROTEIN 95.1 mg/dL (<11.9); Urine Protein/Creatinine Ratio 3.8 ratio (<0.15)
[2022-01-19] MEDS: WATER FOR INJ,STERILE 1,000 ML with NA BICARB 8.4% 150 MEQ IV SCH ×2 (05:22)
--- NOTE | 2022-01-19 08:05 | P.CNS ---
Date of Consult: 01/19/22 Reason for Consult: HERMILA/ CKD Requesting Physician: Kanchan Lacy Chief Complaint: Weakness History of Present Illness: 81-year-old female with history of SLE, recently diagnosed lupus nephritis with renal biopsy 2 months ago showing combined class IV and V disease , progressive CKD with baseline creatinine from 0.7 17-months ago ranging to 4.1 2-months ago; started on CellCept/prednisone, iron deficiency anemia presented because of increasing weakness fatigue and feeling unwell. She has also been complaining of left lower leg pain. On arrival in the ED she was noted with low H&H of 6.8. She was also noted with elevated creatinine at 3.2 with associated metabolic acidosis with bicarb of 16. She follows with Dr. Potts as outpatient. She is being prepped for PRBC now. She has been admitted for further observation She denies any recent NSAID use.. She denies any hematuria or hematochezia or hematemesis. Guaiac stool in the emergency room was negative 14:02 This 31 yrs old Black Female presents to ER via Ambulatory with complaints of kidney kdr pain, dehydration. 14:02 Patient has been feeling poorly for the last 2 to 3 days. The last 24 hours, she has kdr had persistent and profuse diarrhea. She denies blood in her stool. She denies black tarry stools. She states she has lupus and that she sometimes gets bouts of diarrhea. She also indicated that the lupus has played havoc with her kidneys. She is under the care of Dr. Potts. She appears mildly uncomfortable, she does not appear toxic. She has had some nausea but no vomiting. She is otherwise in her usual state of health.. Onset: The symptoms/episode began/occurred gradually, 3 day(s) ago. Severity of symptoms: At their worst the symptoms were mild moderate just prior to arrival. The patient has not experienced similar symptoms in the past. The patient has not recently seen a physician. Patient states that she has episodes like this from time to time. Allergies No Known Drug Allergies Allergy (Verified 03/12/15 23:34) Unknown Home medications list reviewed: Yes Home Medications: Amlodipine [Norvasc*] 5 mg PO DAILY 10/28/21 Mycophenolate Mofetil [Cellcept] 3 tab PO BID 10/28/21 Norgestimate-Ethinyl Estradiol [Tri-Sprintec Tablet] 1 each PO DAILY 10/28/21 Olmesartan/Hydrochlorothiazide [Olmesartan-Hctz 40-12.5 mg Tab] 1 each PO DAILY 10/28/21 carvediloL [Coreg*] 25 mg PO BID 10/28/21 predniSONE [Prednisone*] 5 mg PO DAILY 10/28/21 Hydrocodone 5/APAP 325 [[place] 5/325*] 1 tab PO Q8H PRN 3 Days #5 tab 11/05/21 predniSONE [Prednisone] 2 tab PO DAILY 30 Days #60 tablet 11/05/21 - Past Medical/Surgical History Diabetic: No -: Lupus -: HTN -: 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 brain malformation. crohns - Social History Smoking Status: Never smoker Alcohol use: No CD- Drugs: No Caffeine use: Yes Place of Residence: Home Review of Systems 10-point ROS is otherwise unremarkable General: Weakness Respiratory: SOB with Excertion Cardiovascular: Edema Gastrointestinal: Diarrhea Physical Examination Temp Pulse Resp BP Pulse Ox 97 F 79 17 131/92 H 100 01/19/22 06:00 01/19/22 06:00 01/19/22 06:00 01/19/22 06:00 01/19/22 06:00 General: In no apparent distress, Oriented x3, Cooperative HEENT: Atraumatic Neck: Supple Respiratory: Clear to auscultation bilaterally Cardiovascular: Regular rate/rhythm, Edema Gastrointestinal: Soft and benign, Non-distended Musculoskeletal: No clubbing, No contractures Integumentary: No rashes, No cyanosis Neurological: Normal speech Laboratory Data (last 24 hrs) 01/18/22 10:05: Magnesium 1.9 D 01/18/22 10:05: Sodium 144, Potassium 3.8, BUN 56 H, Creatinine 3.18 H, Glucose 96, Total Bilirubin 0.2, AST 7 L, ALT 25, Alkaline Phosphatase 55, Lipase 490 H 01/18/22 10:05: WBC 8.8, Hgb 6.8 L*, Hct 23.2 L, Plt Count 211 Imagings Data: EXAM DESCRIPTION: US - Extremity Venous Uni Ltd - 01/18/2022 1:02 pm CLINICAL HISTORY: PAIN Leg swelling and edema. COMPARISON: Extremity Venous Uni Ltd dated 11/05/2021 FINDINGS: Left lower extremity venous system was interrogated with Doppler technique. Normal flow, compressibility and augmentation was noted. There is no DVT present. IMPRESSION: No evidence of left lower extremity deep venous thrombosis. Conclusions/Impression: HERMILA in the setting of Lupus Nephritis CKD IV with proteinuria -No NSAIDs -Agree with Solumedrol; recommend a higher dose of prednisone at discharge -Restart Myfortic -Consider Cytoxan as an outpt Acidosis -Start oral bicarb HTN with CKD -Continue Amlodipine Moderate malnutrition -Encourage nutrition Anemia in chronic illness Microcytosis. Iron saturation 24% -Transfuse PRBC as ordered -Give Retacrit X1; consider outpt Retacrit CKD MBD -Start Vitamin D Thank you kindly for the consultation.
[2022-01-19 08:20] LABS: Absolute Lymphocytes (CBC) 0.2 K/uL (0.7-4.9); Albumin 2.7 g/dL (3.4-5.0); Bilirubin Total 0.4 mg/dL (0.2-1.0); C-Reactive Protein 24.5 mg/L (<3.00); Folic Acid, (Folate) 8.5 ng/mL (3.1-17.5); Hematocrit 31.3 % (36.0-45.0); Lymphocytes % 2.1 % (15.3-44.8); MPV 7.9 fL (7.6-11.3); Magnesium 1.9 mg/dL (1.8-2.4); Potassium 5.1 mmol/L (3.5-5.1); Protein, Total 5.3 g/dL (6.4-8.2); RBC Red Blood Cell Count 4.26 M/uL (3.86-4.86); Uric Acid 9.2 mg/dL (2.6-6.0)
[2022-01-19] MEDS ORDERED: DOCUSATE NA 100 MG CAP PO SCH (09:00)
[2022-01-19] MEDS ORDERED: EPOETIN ALFA-EPBX 10,000 UNIT/ML VIAL SQ SCH (09:00)
[2022-01-19] MEDS ORDERED: AMLODIPINE 5 MG TAB PO SCH (09:00)
[2022-01-19] MEDS ORDERED: VITAMIN D 5,000 UNIT CAP PO SCH (09:00)
[2022-01-19] MEDS: FAMOTIDINE 20 MG TAB PO SCH (10:05)
[2022-01-19] MEDS: HEPARIN 5000 UNIT/ML 1 ML VIAL SQ SCH (10:05)
[2022-01-19] MEDS ORDERED: MYFORTIC 360 MG PO SCH (10:45)
[2022-01-19] MEDS ORDERED: EPOETIN ALFA-EPBX 10,000 UNIT/ML VIAL SQ ONE (11:00)
[2022-01-19] MEDS: SODIUM BICARB 325 MG TAB PO SCH ×2 (11:55→11:56)
[2022-01-19 12:23] VITALS: BP 155/95; TEMP 97.5
[2022-01-19 13:12] VITALS: O2SAT 100
--- NOTE | 2022-01-31 23:57 | P.DS ---
Discharge Date: 01/19/22 Disposition: ROUTINE DISCHARGE Discharge Condition: GOOD Reason for Admission: Weakness Brief History of Present Illness: 81-year-old female with history of SLE, recently diagnosed lupus nephritis with renal biopsy 2 months ago showing combined class IV and V disease , progressive CKD with baseline creatinine from 0.7 17-months ago ranging to 4.1 2-months ago; started on CellCept/prednisone, iron deficiency anemia presented because of increasing weakness fatigue and feeling unwell. She has also been complaining of left lower leg pain. On arrival in the ED she was noted with low H&H of 6.8. She was also noted with elevated creatinine at 3.2 with associated metabolic acidosis with bicarb of 16. She follows with Dr. Potts as outpatient. She is being prepped for PRBC now. She has been admitted for further observation She denies any recent NSAID use.. She denies any hematuria or hematochezia or hematemesis. Guaiac stool in the emergency room was negative Hospital Course: Patient has done well during hospital stay. Clinically, patient is much better. At this time, patient is stable for discharge home. Patient will follow-up with consultants and PCP as an outpatient. Vital Signs/Physical Exam: Temp Pulse Resp BP Pulse Ox 97.5 F 75 16 155/95 H 100 01/19/22 12:00 01/19/22 12:00 01/19/22 12:00 01/19/22 12:00 01/19/22 12:00 General: Alert, In no apparent distress, Oriented x3 Laboratory Data at Discharge: WBC 8.7 K/uL (4.3-10.9) 01/19/22 06:48 Hgb 9.8 g/dL (12.0-15.0) L D 01/19/22 06:48 Hct 31.3 % (36.0-45.0) L D 01/19/22 06:48 Plt Count 205 K/uL (152-406) 01/19/22 06:48 Sodium 140 mmol/L (136-145) 01/19/22 06:48 Potassium 5.1 mmol/L (3.5-5.1) 01/19/22 06:48 BUN 57 mg/dL (7-18) H 01/19/22 06:48 Creatinine 3.26 mg/dL (0.55-1.3) H 01/19/22 06:48 Glucose 139 mg/dL (74-106) H 01/19/22 06:48 Uric Acid 9.2 mg/dL (2.6-6.0) H 01/19/22 06:48 Phosphorus 5.0 mg/dL (2.5-4.9) H 01/19/22 06:48 Magnesium Cancelled 01/19/22 14:15 Total Bilirubin 0.4 mg/dL (0.2-1.0) 01/19/22 06:48 AST 8 U/L (15-37) L 01/19/22 06:48 ALT 25 U/L (12-78) 01/19/22 06:48 Alkaline Phosphatase 47 U/L (45-117) 01/19/22 06:48 Lipase 490 U/L (73-393) H 01/18/22 10:05 Home Medications: Amlodipine [Norvasc*] 5 mg PO DAILY 10/28/21 Mycophenolate Mofetil [Cellcept] 3 tab PO BID 10/28/21 Norgestimate-Ethinyl Estradiol [Tri-Sprintec Tablet] 1 each PO DAILY 10/28/21 Olmesartan/Hydrochlorothiazide [Olmesartan-Hctz 40-12.5 mg Tab] 1 each PO DAILY 10/28/21 carvediloL [Coreg*] 25 mg PO BID 10/28/21 Hydrocodone 5/APAP 325 [[place] 5/325*] 1 tab PO Q8H PRN 3 Days #5 tab 11/05/21 Albuterol Neb [Proventil 0.083% Neb Soln] 2.5 mg NEB [id number] PRN #60 amp 01/19/22 Cholecalciferol (Vitamin D3) [Vitamin D 5,000 IU Cap*] 5,000 unit PO DAILY #30 cap 01/19/22 Docusate [Colace Cap*] 100 mg PO BID #60 cap 01/19/22 Famotidine [Pepcid*] 20 mg PO DAILY #30 tab 01/19/22 Myfortic 360 mg PO BID #60 01/19/22 Na Bicarb Tab [Sodium Bicarb 325 MG Tab*] 650 mg PO TIDWM #90 tab 01/19/22 predniSONE [Prednisone*] 20 mg PO BID #30 tab 01/19/22 New Medications: Docusate [Colace Cap*] 100 mg PO BID #60 cap Myfortic 360 mg PO BID #60 Famotidine [Pepcid*] 20 mg PO DAILY #30 tab predniSONE [Prednisone*] 20 mg PO BID #30 tab Albuterol Neb [Proventil 0.083% Neb Soln] 2.5 mg NEB [id number] PRN #60 amp PRN Reason: Shortness Of Breath Na Bicarb Tab [Sodium Bicarb 325 MG Tab*] 650 mg PO TIDWM #90 tab Cholecalciferol (Vitamin D3) [Vitamin D 5,000 IU Cap*] 5,000 unit PO DAILY #30 cap Physician Discharge Instructions: -DC IV and DC home -Follow-up with PCP in 1 to 2 weeks -Follow-up with Nephrology in 1 to 2 weeks -Please call Dr. Blankenship at [phone] if any questions regarding hospital stay -Please call nursing station at [phone] if any nursing or medication questions -Return to the emergency room if symptoms worsen Diet: Renal Activity: Fall precautions Followup: Reilly Potts DO [Primary Care Provider] - (Call to schedule appointment.) Time spent managing pt's care (in minutes): 35
== END 2022-01-19 13:45 | disposition home or self-care (01) ==
LOC: ER 09:17 → ERHOLD 13:58 → 2ND 16:12
PROVIDERS: ADMIT Internal Medicine; ATTEND Hospitalist
PROC: 30233N1 Transfusion of Nonautologous Red Blood Cells into Peripheral Vein, Percutaneous Approach (ICD-10-PCS; 2022-01-18)
PROC: 30233N1 Transfusion of Nonautologous Red Blood Cells into Peripheral Vein, Percutaneous Approach (ICD-10-PCS; principal; 2022-01-19)
DX: D50.9 Iron deficiency anemia, unspecified (principal); N17.9 Acute kidney failure, unspecified; I12.9 Hypertensive chronic kidney disease with stage 1 through stage 4 chronic kidney disease, or unspecified chronic kidney disease; N18.4 Chronic kidney disease, stage 4 (severe); D63.8 Anemia in other chronic diseases classified elsewhere; M32.9 Systemic lupus erythematosus, unspecified; E87.2 Acidosis; M79.662 Pain in left lower leg; E86.0 Dehydration; R19.7 Diarrhea, unspecified; E46 Unspecified protein-calorie malnutrition; Z68.34 Body mass index [BMI] 34.0-34.9, adult; Z79.52 Long term (current) use of systemic steroids; Z79.899 Other long term (current) drug therapy; Z88.8 Allergy status to other drugs, medicaments and biological substances; Z20.822 Contact with and (suspected) exposure to COVID-19; Z83.79 Family history of other diseases of the digestive system
CPT/HCPCS: 36430 ×2; 85025 ×2; 36415; 86900; 83735 ×2; 86850; 83615; 84100; 85044; 84300 ×2; 86901; 84550; 85652; 81003; 82570 ×2; 82746; 82607; 83690; 83540; 83010; 80053 ×2; 86225; 86160 ×2; 84156; 84466; 86140; 93971; 94760 ×3; 99284; U0003; J1940; J1644 ×2; J3010; J2270; J1170; J0610; Q5106; P9016 ×2; J7050; J7030; J2930 ×4; J2405; J3490; G0378 ×3; 81015

== ENCOUNTER 2022-02-11 12:55 | Emergency (ER) | payer BC ==
--- OUTSIDE RECORDS SUMMARY | 2022-02-11 12:57 | XMS REPORT | Continuity of Care Document ---
:1990 Author Organization [facility] t Address [address] [place] [address] Care Team Providers Name Role Phone Rubia [...] Date Expiration Date S chelsea BC 2 [id number] 2021 00:00:00 [employer] [facility] [id number] 2014 00:00:00 Problems Condition Condition Condition Status Onset Resolution Last Treating Co mments Source Name Details Category Date Date Treatment Clinician Date Lupus Lupus Disease Active [facility] Allergies, Adverse Reactions, Alerts Allergy Allergy Status [...] Tobacco use and 2017-03-12 2017-03-12 Never used [facility] exposure 00:00:00 00:00:00 Medical Branch Sex Ass[birth year] At [birth year] [facility] 00:00:00 00:00:00 Medical Branch Smoking Status Start Date Stop Date Source Never smoker [facility] Medical Branch Medications Ordered Filled Start Stop Current Ordering Indication Dosage Frequency Signature Comments Components Source Medication Medication Date Date Medication? Clinician (SIG) Name Name predniSONE 2020-0 Yes 5mg Take 5 mg Un yasmani 5 mg tablet 2-24 by mouth ity of 18:51: daily. [address] Branch mycophenola 2020-0 Yes 500mg Take 500 U nivers te mofetil 2-24 mg by ity of (CELLCEPT[place] 18:[place]: [place] 16 (two) Medical tablet times Branch daily. carvedilol 2020-0 Yes 12.5mg Take 12.5 Univers 12.5 mg 2-24 mg by ity of tablet 18:51: mouth 2 [place] [address] (two) Medical times Branch daily with meals. predniSONE 2020-0 Yes 5mg Take 5 mg Un yasmani 5 mg tablet 2-24 by mouth ity of 18:51: daily. [address] Branch mycophenola 2020-0 Yes 500mg Take 500 U nivers te mofetil 2-24 mg by ity of (CELLCEPT) 18:51: [place] 500 mg 16 (two) Medical tablet times Branch daily. carvedilol 2020-0 Yes 12.5mg Take 12.5 Univers 12.5 mg 2-24 mg by ity of tablet 18:51: mouth 2 [place] [address] (two) Medical times Branch daily with meals. predniSONE 2020-0 Yes 5mg Take 5 mg Un yasmani 5 mg tablet 2-24 by mouth ity of 18:51: daily. [place] [address] Medical Branch mycophenola 2020-0 Yes 500mg Take [...] 2-24 by mouth ity of 18:51: daily. [place] [address] Medical Branch mycophenola 2020-0 Yes 500mg Take 500 U nivers te mofetil 2-24 mg by ity of (CELLCEPT) 18:51: [place] 500 mg 16 (two) Medical tablet times Branch daily. carvedilol 2020-0 Yes 12.5mg Take 12.5 Univers 12.5 mg 2-24 mg by ity of tablet 18:51: mouth 2 [place] 16 (two) Medical times Branch daily with meals. hydrOXYzine 2020-0 Yes [id number] 25mg Take 1 Univers 25 mg 2-24 tablet by ity of tablet 00:00: mouth [place] 00 every 6 Medical (six) Branch hours as needed for Itching. hydrOXYzine 2020-0 Yes [id number] 25mg Take 1 Univers 25 mg 2-24 tablet by ity of tablet 00:00: mouth [place] 00 every 6 Medical (six) Branch hours as needed for Itching. hydrOXYzine 2020-0 Yes [id number] 25mg Take 1 Univers 25 mg 2-24 tablet by ity of tablet 00:00: mouth [place] 00 every 6 Medical (six) Branch hours as needed for Itching. hydrOXYzine 2020-0 Yes [id number] 25mg Take 1 Univers 25 mg 2-24 [...] Procedure Date / Time Performed Performing Clinician [facility] e PHYSICIAN ORDERS 2021-11-14 05:01:00 Doctor Unassigned, No [facility] PHYSICIAN ORDERS 2021-09-02 06:01:00 Doctor Unassigned, No [facility] Encounters Start End Encounter Admission Attending Care Care Encounter Source Date/Time Date/Time Type Type Clinicians Facility Department ID 2022-01-12 2022-01-12 Outpatient SOPHIE BLANCO [id number] 15:45:00 15:45:00 TOBI dinh 2021-11-14 2021-11-14 Roofing Supervisor Harjit, Diya Lab Main [facility] 1.2.8 40.114 [id number] Univers 16:15:00 16:30:00 Visit Felicita Dubois [id number] [facility] [id number] Luis M robertson PROFESSIO [id number] Ia dical [address] 2021-11-14 2021-11-14 Outpatient Lia DUBOIS [facility] [id number] Univers 16:15:00 16:15:00 FELICITA [id number] ity of [facility] 2021-11-14 2021-11-14 Outpatient Lia [facility]BO[facility] [id number] Univers 16:15:00 16:15:00 FELICITA itmilena [facility] 2021-11-14 2021-11-14 Orders Doctor KEY [id number] Univers 00:00:00 00:00:00 Only UnassZAN [place] [id number] [facility] [address] [facility] [id number] [place] as [id number] [facility] [address] [place] 2021-09-02 2021-09-02 Roofing Supervisor Harjit, Diya Lab Main [facility] 1.2.8 40.114 [id number] Univers 16:15:00 16:30:00 Visit Grace Joseph [id number] [facility]y of [facility] [id number] PROF[place] [phone] Ia dical [facility] 2021-09-02 2021-09-02 Outpatient R [facility] [id number] Univers 16:15:00 16:15:00 [id number] ity [facility] 2021-09-02 2021-09-02 Outpatient R OPAL [facility] [id number] Univers 16:15:00 16:15:00 GRACE [facility] 2021-09-02 2021-09-02 Orders Doctor SHAHID [id number] Univers 00:00:00 00:00:00 Only Unassigned, ZAN [id number] ity of [address] [facility] [id number] [place] as [id number] [address] 2021-04-04 2021-04-11 Inpatient JACK ROLLE [facility] [id number] [facility] 23:38:00 16:51:00 2021-04-03 2021-04-04 Inpatient Davey FELICIANO [facility] MED [id number] [facility] 21:43:00 23:00:00 HONORIO 2021-03-19 2021-03-19 Outpatient R [facility] [id number] Univers 17:15:00 17:15:00 [id number] ity [facility] 2021-03-19 2021-03-19 Outpatient R OPAL [facility] [id number] Univers 17:15:00 17:15:00 GRACE ity [facility] 2021-01-22 2021-01-22 Outpatient R [facility] [id number] Univers 12:45:00 12:45:00 [id number] ity [facility] 2021-01-22 2021-01-22 Outpatient R OPAL, [facility] [id number] Univers 12:45:00 12:45:00 GRACE milena [facility] 2021-01-21 2021-01-21 Outpatient [facility] [id number] Univers 11:30:00 11:30:00 [id number] itmilena [facility] 2021-01-21 2021-01-21 Outpatient R OPAL, [facility] [id number] Univers 11:30:00 11:30:00 GRACE [facility] 2020-02-07 2020-02-07 Roofing Supervisor Harjit [facility] 1.2.840.114 [id number] 17:26:43 17:41:43 Visit Lab Main [place] [id number] U[place] [id number] Professirving [id number] [address] 2020-02-07 2020-02-07 Outpatient R [facility] [id number] Univers 17:00:00 17:00:00 [id number] [facility] 2020-02-07 2020-02-07 [facility] [id number] Univers 17:00:00 17:00:00 [facility] 2020-02-07 2020-02-07 Orders Doctor SHAHID [id number] 00:00:00 00:00:00 Only Unassigned, ZAN [id number] [facility] [id number] 2019-11-02 2019-11-02 Roofing Supervisor Harjit [facility] 1.2.840.114 [id number] 10:22:24 10:37:24 Visit Lab Main [place] [id number] Uzma [id number] Professio [id number] [address] 2019-11-02 2019-11-02 [facility] [id number] Univers 10:15:00 10:15:00 GRACE [facility] 2019-11-02 2019-11-02 Outpatient R [facility] [id number] Univers 10:15:00 10:15:00 [id number] [facility] 2019-11-02 2019-11-02 Orders Doctor SHAHID [id number] [id number] 00:00:00 00:00:00 Only Unassigned, ZAN [id number] [facility] [id number] 2019-10-16 2019-10-16 Outpatient R [facility] [id number] Univers 18:30:00 18:30:00 [id number] [facility] 2019-10-16 2019-10-16 Outpatient R UNKNOWN, [facility] [id number] Univers 18:30:00 18:30:00 ATTENDING [facility] Results This patient has no known results.
--- NOTE | 2022-02-11 14:18 | RAD REPORT ---
EXAM DESCRIPTION: CT - Head Brain Wo Cont - 02/11/2022 2:02 pm CLINICAL HISTORY: Headache, blurry vision COMPARISON: No comparisons TECHNIQUE: All CT scans are performed using dose optimization technique as appropriate and may inclu de automated exposure control or mA/KV adjustment according to patient size. FINDINGS: No intracranial hemorrhage, hydrocephalus or extra-axial fluid collection.No areas of brai n edema or evidence of midline shift. The paranasal sinuses and mastoids are clear. The calvarium is intact. IMPRESSION: No acute intracranial abnormality.
[2022-02-11 14:39] LABS: Absolute Lymphocytes (CBC) 0.8 K/uL (0.7-4.9); Hematocrit 28.8 % (36.0-45.0); Lymphocytes % 5.9 % (15.3-44.8); MPV 7.3 fL (7.6-11.3); RBC Red Blood Cell Count 3.95 M/uL (3.86-4.86)
--- NOTE | 2022-02-11 14:41 | RAD REPORT ---
EXAM DESCRIPTION: RAD - Chest Single View - 02/11/2022 2:18 pm CLINICAL HISTORY: CHEST PAIN COMPARISON: Chest Single View dated 11/03/2021; Chest Single View dated 11/01/2021; Chest Pa And Lat ( 2 Views) dated 05/08/2018; Chest Pa And Lat (2 Views) dated 12/06/2015 FINDINGS: Lines: None. Lungs: No evidence of edema or pneumonia. Pleural: No significant pleural effusions or pneumothorax. Cardiac: The heart size is within normal limits. Bones: No acute fractures. Other: IMPRESSION: No acute cardiopulmonary disease.
[2022-02-11 14:57] LABS: ALT/SGPT 29 U/L (12-78); AST/SGOT 11 U/L (15-37); Albumin 2.8 g/dL (3.4-5.0); Alkaline Phosphatase 71 U/L (45-117); BUN Blood Urea Nitrogen 57 mg/dL (7-18); Bicarbonate 19 mmol/L (21-32); Bilirubin Total 0.3 mg/dL (0.2-1.0); Glomerular Filtration Rate 20 ml/min (=/>90); Glucose Level 148 mg/dL (74-106); Potassium 4.7 mmol/L (3.5-5.1); Protein, Total 5.3 g/dL (6.4-8.2); Sodium Level 142 mmol/L (136-145); Troponin High Sensitivity 13.9 pg/mL (<58.9)
[2022-02-11 14:58] LABS: Bilirubin Direct < 0.1 mg/dL (0-0.2)
[2022-02-11] MEDS ORDERED: METOCLOPRAMIDE 10 MG/2mL INJ ONE (16:34)
[2022-02-11] MEDS ORDERED: dexAMETHasone 10 MG/ML VIAL ONE (16:34)
[2022-02-11] MEDS ORDERED: NA CHLORIDE 0.9% 500 ML ONE (16:34)
[2022-02-11] MEDS ORDERED: DIPHENHYDRAMINE 50 MG/ML VIAL ONE (16:34)
[2022-02-11] MEDS ORDERED: ONDANSETRON 4 MG/2 ML VIAL ONE (17:04)
--- NOTE | 2022-02-11 17:04 | EDPHYS ---
Physician Documentation [facility] Name: Arianne Mendez Age: 31 yrs Sex: Female : 1990 Arrival Date: 02/11/2022 Time: 12:56 Bed 16 Private MD: Reilly Potts ED Physician Dyllan Pollack HPI: 02/11 13:37 This 31 yrs old Black Female presents to ER via Ambulatory with complaints of High pm1 Blood Pressure, Headache. 13:37 The patient has elevated blood pressure and discovered this at home, with a home device.pm1 13:37 Onset: The symptoms/episode began/occurred 2 day(s) ago. Modifying factors: The pm1 symptoms are alleviated by Nothing. 13:37 Associated signs and symptoms: Pertinent positives: chest pain, headache, Blurry pm1 vision, Pertinent negatives: nausea, vomiting. Severity of symptoms: in the emergency department the blood pressure is unchanged. The patient has not recently seen a physician. 21-year-old patient presents to the ER with complaints of headache and elevated blood pressure. Onset of symptoms 2 days ago. Patient with history of lupus. Patient uncertain if this feels like a lupus flareup. Patient with chest pain lasting 1 to 2 seconds on and off for the past 2 days. Patient is currently chest pain-free. Patient's headache onset 2 days ago. Located in frontal area. Patient also reports blurry vision. Negative for any weakness, nausea, vomiting. Patient without improvement of headache with OTC medications. 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 - Social history:: Smoking status: Patient denies any tobacco usage or history of. ROS: 13:37 Constitutional: Negative for fever, chills, and weight loss, Respiratory: Negative for pm1 shortness of breath, cough, wheezing, and pleuritic chest pain. 13:37 Abdomen/GI: Negative for abdominal pain, nausea, vomiting, diarrhea, and constipation, Back: Negative for injury and pain, MS/Extremity: Negative for injury and deformity, Skin: Negative for injury, rash, and discoloration. 13:37 Cardiovascular: Positive for chest pain, Negative for edema. 13:37 All other systems are negative. Exam: 13:37 Constitutional: This is a well developed, well nourished patient who is awake, alert, pm1 and in no acute distress. Head/Face: Normocephalic, atraumatic. 13:37 Abdomen/GI: Soft, non-tender, with normal bowel sounds. No distension or tympany. No guarding or rebound. No evidence of tenderness throughout. Back: No spinal tenderness. No costovertebral tenderness. Full range of motion. Skin: Warm, dry with normal turgor. Normal color with no rashes, no lesions, and no evidence of cellulitis. MS/ Extremity: Pulses equal, no cyanosis. Neurovascular intact. Full, normal range of motion. 13:37 Cardiovascular: Exam negative for acute changes, Rate: normal, Rhythm: regular, Pulses: no pulse deficits are appreciated. 13:37 Respiratory: Exam negative for acute changes, respiratory distress, shortness of breath. 13:37 Neuro: Exam negative for acute changes, Orientation: is normal, Mentation: is normal, Cranial nerves: CN II- XII are normal as tested, Motor: is normal, moves all fours, Gait: is steady, at a normal pace, without difficulty. Vital Signs: 13:25 BP 151 / 93; Pulse 89; Resp 16; Temp 98.2(TE); Pulse Ox 100% on R/A; Weight 89.36 kg; ss Height 5 ft. 3 in. (160.02 cm); Pain 4/10; 15:00 BP 144 / 92; Pulse 78; Resp 18; Pulse Ox 99% on R/A; ph 16:30 BP 146 / 93; Pulse 80; Resp 18; Pulse Ox 100% on R/A; ph 17:30 BP 137 / 84; Pulse 78; Resp 18; Temp 98.0; Pulse Ox 99% on R/A; ph 13:25 Body Mass Index 34.90 (89.36 kg, 160.02 cm) ss MDM: 13:37 Patient medically screened. pm1 15:20 Data reviewed: diagnostic data from outside facility, CBC, hemoglobin, hematocrit, pm1 electrolytes, BUN, creatinine, since 10/29/2021 and her Cr is abnormal but improved. Patient with chronic kidney disease. 15:45 Counseling: I had a detailed discussion with the patient and/or guardian regarding: the pm1 historical points, exam findings, and any diagnostic results supporting the discharge/admit diagnosis, lab results, radiology results, the need for outpatient follow up, to return to the emergency department if symptoms worsen or persist or if there are any questions or concerns that arise at home. 02/11 13:37 Order name: Basic Metabolic Panel; Complete Time: 15:02 pm02/11 13:37 Order name: CBC with Diff; Complete Time: 14:51 pm02/11 13:37 Order name: LFT's; Complete Time: 15:02 pm02/11 13:37 Order name: Magnesium; Complete Time: 15:02 pm02/11 13:37 Order name: Troponin HS; Complete Time: 15:02 pm02/11 13:37 Order name: XRAY Chest (1 view); Complete Time: 14:51 pm02/11 13:37 Order name: EKG; Complete Time: 13:37 pm1 02/11 13:37 Order name: CT Head Brain wo Cont; Complete Time: 14:25 pm02/11 13:37 Order name: Cardiac monitoring; Complete Time: 14:28 pm02/11 13:37 Order name: EKG - Nurse/Tech; Complete Time: 14:49 pm02/11 13:37 Order name: IV Saline Lock; Complete Time: 14:28 pm02/11 13:37 Order name: Labs collected and sent; Complete Time: 14:28 pm02/11 13:37 Order name: O2 Per Protocol; Complete Time: 14:28 pm02/11 13:37 Order name: O2 Sat Monitoring; Complete Time: 14:28 pm1 Administered Medications: 16:58 Drug: NS 0.9% 500 ml Route: IV; Rate: bolus; Site: right antecubital; ph 18:00 Follow up: Response: No adverse reaction; IV Status: Completed infusion; IV Intake: ph 500ml 16:58 Drug: Benadryl (diphenhydrAMINE) 12.5 mg Route: IVP; Site: right antecubital; ph 18:00 Follow up: Response: No adverse reaction ph 16:59 Drug: Reglan (metoCLOPramide) 10 mg Route: IVP; Site: right antecubital; ph 18:00 Follow up: Response: No adverse reaction ph 17:02 Drug: Decadron - Dexamethasone 10 mg Route: IVP; Site: right antecubital; ph 18:00 Follow up: Response: No adverse reaction ph 17:02 Drug: Zofran (Ondansetron) 4 mg Route: IVP; Site: right antecubital; ph 18:00 Follow up: Response: No adverse reaction ph Disposition: 18:28 Co-signature as Attending Physician, Dyllan Pollack MD. rn Disposition Summary: 02/11/22 17:03 Discharge Ordered Location: Home pm1 Problem: new pm1 Symptoms: have improved pm1 Condition: Stable pm1 Diagnosis - Headache pm1 - Essential (primary) hypertension pm1 Followup: pm1 - With: Emergency Department - When: As needed - Reason: Worsening of condition Followup: pm1 - With: Private Physician - When: 2 - 3 days - Reason: Recheck today's complaints, Continuance of care, Re-evaluation by your physician Discharge Instructions: - Discharge Summary Sheet pm1 - General Headache Without Cause pm1 - Hypertension, Adult pm1 - How to Take Your Blood Pressure, [id number] pm1 - DASH Eating Plan pm1 - Managing Your Hypertension pm1 Forms: - Medication Reconciliation Form pm1 - Thank You Letter pm1 - Antibiotic Education pm1 - Prescription Opioid Use pm1 Signatures: Dispatcher [employer] EDDyllan Carvalho MD MD rn Smirch, Shelby, RN RN Yamilet Saldana RN RN ph Marinas, Patrick, JAIME PREP MANAGER pm1 Corrections: (The following items were deleted from the chart) 16:02 13:37 PROTIME (+INR)+COAG.LAB.BRZ ordered. EDMS EDMS
--- NOTE | 2022-02-11 17:04 | ER ---
Nurse's Notes [facility] Name: Arianne Mendez Age: 31 yrs Sex: Female : 1990 Arrival Date: 02/11/2022 Time: 12:56 Bed 16 Private MD: Reilly Potts Diagnosis: Headache;Essential (primary) hypertension Presentation: 02/11 13:25 Chief complaint: Patient states: Intermittent headaches and blurred vision that have ss been ongoing for 2 days. Pt states she checked her BP this AM and it was 191/125. Coronavirus screen: Client denies travel out of the [place] in the last 14 days. Ebola Screen: Patient denies exposure to infectious person. Patient denies travel to an Ebola-affected area in the 21 days before illness onset. Initial Sepsis Screen: Does the patient meet any 2 criteria? No. Patient's initial sepsis screen is negative. Does the patient have a suspected source of infection? No. Patient's initial sepsis screen is negative. Risk Assessment: Do you want to hurt yourself or someone else? Patient reports no desire to harm self or others. Onset of symptoms was February 09, 2022. 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 - Social history:: Smoking status: Patient denies any tobacco usage or history of. Screenin:33 Abuse screen: Denies threats or abuse. Denies injuries from another. Nutritional ph screening: No deficits noted. Tuberculosis screening: No symptoms or risk factors identified. Fall Risk None identified. Assessment: 14:34 General: Appears in no apparent distress. comfortable, well groomed, Behavior is calm, ph cooperative, appropriate for age. Pain: Complains of pain in top and front of head Pain does not radiate. Neuro: Level of Consciousness is awake, alert, obeys commands, Oriented to person, place, time, situation. Cardiovascular: Capillary refill < 3 seconds in bilateral fingers Patient's skin is warm and dry. Respiratory: Airway is patent Respiratory effort is even, unlabored. Derm: Skin is intact, is healthy with good turgor, Skin is pink, warm \T\ dry. Musculoskeletal: Circulation, motion, and sensation intact. Range of motion: intact in all extremities. 17:03 Reassessment: Patient appears in no apparent distress at this time. Patient and/or ph family updated on plan of care and expected duration. Pain level reassessed. Patient is alert, oriented x 3, equal unlabored respirations, skin warm/dry/pink. 17:30 Reassessment: Patient appears in no apparent distress at this time. Patient and/or ph family updated on plan of care and expected duration. Pain level reassessed. Patient is alert, oriented x 3, equal unlabored respirations, skin warm/dry/pink. D/C pending completion of IV meds. Vital Signs: 13:25 BP 151 / 93; Pulse 89; Resp 16; Temp 98.2(TE); Pulse Ox 100% on R/A; Weight 89.36 kg; ss Height 5 ft. 3 in. (160.02 cm); Pain 4/10; 15:00 BP 144 / 92; Pulse 78; Resp 18; Pulse Ox 99% on R/A; ph 16:30 BP 146 / 93; Pulse 80; Resp 18; Pulse Ox 100% on R/A; ph 17:30 BP 137 / 84; Pulse 78; Resp 18; Temp 98.0; Pulse Ox 99% on R/A; ph 13:25 Body Mass Index 34.90 (89.36 kg, 160.02 cm) ED Course: 12:56 Patient arrived in ED. mr 12:56 Reilly Potts DO is Private Physician. mr 13:28 Triage completed. ss 13:28 Arm band placed on right wrist. ss 13:30 Dyllan Pollack MD is Attending Physician. ss 13:30 Lang Brunson NP is PHCP. ss 14:04 CT Head Brain wo Cont In Process Unspecified. EDMS 14:20 XRAY Chest (1 view) In Process Unspecified. EDMS 14:28 Yamilet Saldana, RN is Primary Nurse. ph 14:33 Patient has correct armband on for positive identification. Bed in low position. Call ph light in reach. Side rails up X 1. Client placed on continuous cardiac and pulse oximetry monitoring. NIBP monitoring applied. Door closed. Noise minimized. Warm blanket given. 14:33 Initial lab(s) drawn, by me, sent to lab. Inserted saline lock: 22 gauge in right ph antecubital area, using aseptic technique. Blood collected. 14:34 Patient maintains SpO2 saturation greater than 95% on room air. ph 14:53 EKG done, by ED staff, reviewed by Lang Brunson NP. [email or web address] 17:03 No provider procedures requiring assistance completed. ph 17:50 IV discontinued, intact, bleeding controlled, No redness/swelling at site. Pressure ph dressing applied. Administered Medications: 16:58 Drug: NS 0.9% 500 ml Route: IV; Rate: bolus; Site: right antecubital; ph 18:00 Follow up: Response: No adverse reaction; IV Status: Completed infusion; IV Intake: ph 500ml 16:58 Drug: Benadryl (diphenhydrAMINE) 12.5 mg Route: IVP; Site: right antecubital; ph 18:00 Follow up: Response: No adverse reaction ph 16:59 Drug: Reglan (metoCLOPramide) 10 mg Route: IVP; Site: right antecubital; ph 18:00 Follow up: Response: No adverse reaction ph 17:02 Drug: Decadron - Dexamethasone 10 mg Route: IVP; Site: right antecubital; ph 18:00 Follow up: Response: No adverse reaction ph 17:02 Drug: Zofran (Ondansetron) 4 mg Route: IVP; Site: right antecubital; ph 18:00 Follow up: Response: No adverse reaction ph Medication: 14:34 VIS not applicable for this client. ph Intake: 18:00 IV: 500ml; Total: 500ml. ph Outcome: 17:03 Discharge ordered by . pm1 18:14 Patient left the ED. ph 18:14 Discharged to home ambulatory, with family. ph 18:14 Condition: good 18:14 Discharge instructions given to patient, Instructed on discharge instructions, follow up and referral plans. Demonstrated understanding of instructions, follow-up care. Signatures: Dispatcher MedM[facility]ows Psychiatric CenterArielle Hagan Shelby, RN RN ss Yamilet Saldana, RN RN ph Lang Brunson, DONKEY ENGINE FIRER/FIREMAN DONKEY ENGINE FIRER/FIREMAN pm1 Carolina Patrick jw7
[2022-02-11 18:48] VITALS: TEMP 98.2
[2022-02-11 18:51] VITALS: BP 146/93; O2SAT 100
--- NOTE | 2022-02-14 17:37 | EKG ---
Test Date: 2022-02-11 Test Time: 14:45:58 Fpga Engineer: IBAN MEASUREMENT RESULTS: Intervals: Rate: 73 IN: 128 QRSD: 72 QT: 344 QTc: 378 [place]: P: 18 IN: 128 QRS: 0 T: 20 INTERPRETIVE STATEMENTS: Normal sinus rhythm Anterior infarct, age undetermined Abnormal ECG Compared to ECG 11/02/2021 14:23:20 Myocardial infarct finding now present Sinus bradycardia no longer present Electronically Signed On 02-14-22 17:31:59 CDT by Juan A Vargas
== END 2022-02-11 18:14 | disposition home or self-care (01) ==
LOC: ER 12:55
DX: R51.9 Headache, unspecified (principal); I10 Essential (primary) hypertension; Z88.5 Allergy status to narcotic agent
CPT/HCPCS: 96361; 93005; 85025; 80048; 36415; 83735; 80076; 84484; 70450; 71045; 96375; 96374; 99284; J2765; J1200; J1100; J7040; J2405

== ENCOUNTER 2022-03-09 05:00 | Inpatient (IN) | payer BC ==
[2022-03-09] MEDS ORDERED: MORPHINE 4 MG/ML SYR ONE (06:15)
[2022-03-09] MEDS ORDERED: ONDANSETRON 4 MG/2 ML VIAL ONE (06:15)
[2022-03-09 06:33] LABS: Absolute Lymphocytes (CBC) 0.2 K/uL (0.7-4.9); Hematocrit 20.5 % (36.0-45.0); Lymphocytes % 3.4 % (15.3-44.8); MCV 68.7 fL (80-100); MPV 7.8 fL (7.6-11.3); RBC Red Blood Cell Count 2.98 M/uL (3.86-4.86)
[2022-03-09 06:42] LABS: Urine Blood Trace-lysed (Negative); Urine Glucose Negative (Negative); Urine Protein 2+ (Negative); Urine Specific Gravity 1.025 (1.005-1.030); Urine pH 5.5 (5.0-7.0)
[2022-03-09 06:59] LABS: Albumin 2.6 g/dL (3.4-5.0); Bilirubin Total 0.1 mg/dL (0.2-1.0); Potassium 4.5 mmol/L (3.5-5.1); Protein, Total 6.1 g/dL (6.4-8.2)
[2022-03-09] MEDS ORDERED: HYDROMORPHONE HCL 1 MG/ML INJ ONE (07:02)
[2022-03-09 07:18] LABS: Urine RBC <5 /HPF (None Seen)
[2022-03-09 07:19] LABS: Urine Bacteria 20-50 /HPF (<20)
[2022-03-09 07:50] LABS: White Blood Cell Scan OK (OK)
[2022-03-09 07:51] LABS: Anisocytosis 2+; Blood Morphology Comment NOTED (NOT SEEN); Hypochromasia 1+; Macrocytosis SLIGHT; Ovalocytes 1+; Platelet Estimate ADEQ; Poikilocytosis 2+; Teardrop Cell 2+
--- NOTE | 2022-03-09 08:56 | RAD REPORT ---
EXAM DESCRIPTION: CT - Abdomen Pelvis Wo Contrast - 03/09/2022 8:37 am CLINICAL HISTORY: Abdominal pain, acute, nonlocalized COMPARISON: CT ABD PELVIS W CONTRAST dated 01/23/2013; Transvaginal Study Probe dated 02/05/2022 TECHNIQUE: Axial [address] imaging of the abdomen and pelvis was performed without IV contrast. No IV contrast was given because of allergy, abnormal renal function, patient refusal or physician re quest. No oral contrast administered. All CT scans are performed using dose optimization technique as appropriate and may include automated exposure control or mA/KV adjustment according to patient size. FINDINGS: No suspicious findings in the lung bases. The liver, spleen and pancreas show no suspicious findings on non-contrast imaging. Gallbladder is co ntracted around multiple gallstones. No biliary tree dilatation. No hydronephrosis or suspicious renal mass. No significant adrenal finding. Isodense renal masses an d pyelonephritis cannot be excluded in the absence of IV contrast. The urinary bladder is without sig nificant finding. IUD appears to be well positioned within the fundal and midportion of the uterus. Uterine contour is deformed by multiple fibroids. Along the left inferior margin of the fundus there is an approximately 3 centimeter fibroid. Right lateral approximately 3 centimeter fibroid seen as well. No fallopian tu be or ovarian abnormality. There is no abnormal air or fluid collection in the pelvis. No gastric dilatation or gastric wall thickening. Fluid is present filling but not dilating the stoma ch. No duodenum abnormality seen. Proximal jejunal loops are abnormal. There is wall thickening and e maribell. Stranding is present in the adjacent mesenteric fat. In the proximal jejunum just distal to the ligament of Treitz there is abnormal air collection along the wall of the the jejunum extending as p unctate areas of extraluminal free air. The adjacent splenic flexure region of the colon does have di verticulosis. However, no wall thickening or wall edema seen. The air is believed to be from jejunum rather than an acute diverticulitis. More distally the loops of ileum show no suspicious finding. No direct or indirect appendicitis findings. Left-sided colonic diverticulosis present without acute div erticulitis findings. No acute colon finding seen. No other area of free air or acute finding. No abscess or drainable fluid collection. No hernia, mas s or bulky lymphadenopathy. No suspicious bony findings. Findings telephoned to referring physician 8:52 a.m. IMPRESSION: Wall thickening and edema involve multiple loops of jejunum with minimal amount of extra luminal free air adjacent to the proximal jejunum. No associated mass or foreign body identified. No abscess or drainable fluid collection. No free air distant from the jejunum. IUD appears to be well positioned within the multi fibroid uterus. No CLINICAL REVIEW SPECIALIST or pelvic acute finding nicole ntifiable. Diverticulosis without acute diverticulitis. Multi stone cholelithiasis without acute finding.
--- NOTE | 2022-03-09 09:21 | EDPHYS ---
Physician Documentation [facility] Name: Arianne Mendez Age: 31 yrs Sex: Female : 1990 Arrival Date: 03/09/2022 Time: 05:04 Bed 14 Private MD: ED Physician Nestor Cabrera HPI: 03/09 06:05 This 31 yrs old Black Female presents to ER via Wheelchair with complaints of Abdominal mh7 Pain. 06:05 The patient presents with abdominal pain in the upper abdomen, in the lower abdomen. mh7 Onset: The symptoms/episode began/occurred 3 week(s) ago, and became worse 5 day(s) ago. The symptoms do not radiate. Associated signs and symptoms: Pertinent negatives: nausea, vomiting, and diarrhea, dysuria, fever, headache, hematuria, nausea, palpitations, shortness of breath, vaginal discharge, vomiting, vomiting blood. The symptoms are described as intermittent, vague, waxing/waning. Modifying factors: The symptoms are alleviated by nothing, the symptoms are aggravated by nothing. Severity of pain: At its worst the pain was moderate 2 day(s) ago, in the emergency department the pain is unchanged. 06:05 States that pain started after having a Mirena placed a few weeks ago.. mh7 Historical: - Allergies: 05:35 Toradol; ke1 05:35 tramadol; ke1 - Home Meds: 07:55 amlodipine 5 mg tab 1 tab once daily [Active]; carvedilol 25 mg Oral tab 1 tab 2 times desir per day [Active]; - PMHx: 05:35 Anemia; Hypertensive disorder; Lupus; ke1 - PSHx: 05:35 Mirena implant; ke1 - Immunization history:: Client reports receiving the 2nd dose of the Covid vaccine. - Social history:: Smoking status: Patient denies any tobacco usage or history of. ROS: 06:05 Constitutional: Negative for fever, chills, and weight loss, Eyes: Negative for injury, mh7 pain, redness, and discharge, ENT: Negative for injury, pain, and discharge, Neck: Negative for injury, pain, and swelling, Cardiovascular: Negative for chest pain, palpitations, and edema, Respiratory: Negative for shortness of breath, cough, wheezing, and pleuritic chest pain, Back: Negative for injury and pain, : Negative for injury, bleeding, discharge, and swelling, MS/Extremity: Negative for injury and deformity, Skin: Negative for injury, rash, and discoloration, Neuro: Negative for headache, weakness, numbness, tingling, and seizure, Psych: Negative for depression, anxiety, suicide ideation, homicidal ideation, and hallucinations, Allergy/Immunology: Negative for hives, rash, and allergies, Endocrine: Negative for neck swelling, polydipsia, polyuria, polyphagia, and marked weight changes, Hematologic/Lymphatic: Negative for swollen nodes, abnormal bleeding, and unusual bruising. Exam: 06:05 Head/Face: Normocephalic, atraumatic. Eyes: Pupils equal round and reactive to light, mh7 extra-ocular motions intact. Lids and lashes normal. Conjunctiva and sclera are non-icteric and not injected. Cornea within normal limits. Periorbital areas with no swelling, redness, or edema. Neck: Trachea midline, no thyromegaly or masses palpated, and no cervical lymphadenopathy. Supple, full range of motion without nuchal rigidity, or vertebral point tenderness. No Meningismus. Chest/axilla: Normal chest wall appearance and motion. Nontender with no deformity. No lesions are appreciated. Cardiovascular: Regular rate and rhythm with a normal S1 and S2. No gallops, murmurs, or rubs. Normal PMI, no JVD. No pulse deficits. Respiratory: Lungs have equal breath sounds bilaterally, clear to auscultation and percussion. No rales, rhonchi or wheezes noted. No increased work of breathing, no retractions or nasal flaring. Back: No spinal tenderness. No costovertebral tenderness. Full range of motion. Skin: Warm, dry with normal turgor. Normal color with no rashes, no lesions, and no evidence of cellulitis. MS/ Extremity: Pulses equal, no cyanosis. Neurovascular intact. Full, normal range of motion. Neuro: Awake and alert, GCS 15, oriented to person, place, time, and situation. Cranial nerves II-XII grossly intact. Motor strength 5/5 in all extremities. Sensory grossly intact. Cerebellar exam normal. Normal gait. Psych: Awake, alert, with orientation to person, place and time. Behavior, mood, and affect are within normal limits. 06:05 Constitutional: The patient appears in no acute distress, alert, awake, uncomfortable. 06:05 Abdomen/GI: Inspection: obese Bowel sounds: normal, in all quadrants, Palpation: moderate abdominal tenderness, in all quadrants, mass, is not appreciated, rebound tenderness, is not appreciated, voluntary guarding, is not appreciated, involuntary guarding, is not appreciated, no appreciated organomegaly, Indicators: McBurney's point is not tender, Martinez's sign is negative, Rovsing's sign is negative, Obturator sign is negative, Psoas sign is negative, Liver: no appreciated palpable abnormalities, Hernia: not appreciated. Vital Signs: 05:32 BP 125 / 90; Pulse 86; Resp 22; Temp 98.4(O); Pulse Ox 100% ; Weight 83.91 kg; Height 5 ke1 ft. 3 in. (160.02 cm); Pain 10/10; 07:54 BP 111 / 82; Pulse 87; Resp 17; Pulse Ox 100% on R/A; desir 05:32 Body Mass Index 32.77 (83.91 kg, 160.02 cm) ke1 MDM: 07:08 Patient medically screened. ms3 09:21 ED course: Discussed case and CT report with Dr Bryson and he will consult on patient. ms3 Medical management at this time. Discussed plan with Dr Rodas and he accepts admission.. 18:51 Differential diagnosis: bowel obstruction, non-specific abd pain, IUD migration. Data ms3 reviewed: vital signs, nurses notes, lab test result(s), EKG. Counseling: I had a detailed discussion with the patient and/or guardian regarding: the historical points, exam findings, and any diagnostic results supporting the discharge/admit diagnosis, lab results, radiology results, the need for further work-up and treatment in the hospital. 03/09 05:44 Order name: CBC with Diff; Complete Time: 07:59 ke1 03/09 05:44 Order name: CMP; Complete Time: 07:49 ke1 03/09 05:44 Order name: Lipase; Complete Time: 07:49 ke1 03/09 06:42 Order name: Urine --Ancillary (enter results) wm 03/09 06:43 Order name: Urine Dipstick-Ancillary; Complete Time: 06:50 EDMS 03/09 06:45 Order name: Urine Microscopic Only; Complete Time: 07:49 ke1 03/09 06:53 Order name: Type And Screen [facility] 03/09 06:54 Order name: CT Abd/Pelvis - Without Contrast; Complete Time: 09:04 [facility] 03/09 08:01 Order name: Bb Add On eb 03/09 08:13 Order name: Urine Culture [facility] 03/09 08:13 Order name: CBC Smear Scan [facility] 03/09 08:13 Order name: Packed RBC Leukored [facility] 03/09 09:23 Order name: COVID-19 SARS RT PCR (Document "Date of Onset" if Symptomatic) 03/09 09:39 Order name: Arterial Blood Gas wy3 03/09 05:44 Order name: IV Saline Lock; Complete Time: 06:40 ke 03/09 05:44 Order name: Labs collected and sent; Complete Time: 06:40 [facility] 03/09 06:40 Order name: Straight Cath - Urine; Complete Time: 06:40 [facility] 03/09 06:41 Order name: Urine Dipstick-Ancillary (obtain specimen); Complete Time: 06:54 ke1 Administered Medications: 06:15 Drug: morphine 4 mg Route: IM; Site: right deltoid; ke1 06:35 Follow up: Response: Pain is unchanged, physician notified ke1 06:15 Drug: Zofran (ondansetron) 4 mg Route: IM; Site: right deltoid; ke1 06:30 Follow up: Response: Pain is unchanged, physician notified ke1 07:00 Drug: Dilaudid (HYDROmorphone) 1 mg Route: IVP; Site: left antecubital; desir 07:01 Follow up: Response: No adverse reaction desir 11:48 Drug: Zosyn (piperacillin-tazobactam) 3.375 grams Route: IVPB; Infused Over: 60 mins; desir Site: Other; Disposition Summary: 03/09/22 09:20 Hospitalization Ordered Hospitalization Status: Inpatient Admission ms3 Provider: Deep Rodas ms3 Condition: Stable ms3 Problem: new ms3 Symptoms: are unchanged ms3 Bed/Room Type: Standard ms3 Location: Intensive Care Unit(03/09/22 13:26) dw Room Assignment: 7-(03/09/22 13:26) dw Diagnosis - Abdominal pain, unspecified ms3 Forms: - Medication Reconciliation Form ms3 - SBAR form ms3 Signatures: Dispatcher [employer] EDMS Ivanna Ramirez, RN RN Nestor Cabrera DO DO ms3 Dez Villasenor MD MD mh7 Mila-StagerLena, RN RN desir Zain Yanes RN RN ke1 Corrections: (The following items were deleted from the chart) 13 09:20 Telemetry/MedSurg (Inpatient) ms3 dw 13 09:20 ms3 dw 18:52 18:51 ED course: Discussed case and CT report with Dr Bryson and he will consult on ms3 patient. Medical management at this time. Discussed plan with Dr Rodas and he accepts admission.. ms3 18:53 18:51 ED course: Discussed case and CT report with Dr Bryson and he will consult on ms3 patient. Medical management at this time. Discussed plan with Dr Rodas and he accepts admission.. ms3
--- NOTE | 2022-03-09 09:21 | ER ---
Nurse's Notes [facility] Name: Arianne Mendez Age: 31 yrs Sex: Female : 1990 Arrival Date: 03/09/2022 Time: 05:04 Bed 14 Private MD: Diagnosis: Abdominal pain, unspecified Presentation: 03/09 05:32 Chief complaint: Patient states: Abdominal pain pain post Mirena implant that is ke1 getting worse today. Coronavirus screen: Vaccine status: Patient reports receiving the 2nd dose of the covid vaccine. Ebola Screen: No symptoms or risks identified at this time. Initial Sepsis Screen: Does the patient meet any 2 criteria? No. Patient's initial sepsis screen is negative. Does the patient have a suspected source of infection? No. Patient's initial sepsis screen is negative. Risk Assessment: Do you want to hurt yourself or someone else? Patient reports no desire to harm self or others. Onset of symptoms was March 06, 2022. 05:32 Method Of Arrival: Wheelchair ke 05:32 Acuity: MADY 3 ke1 Triage Assessment: 05:36 General: Appears uncomfortable, Behavior is crying. Pain: Complains of pain in Lower ke1 abdomen Pain currently is 10 out of 10 on a pain scale. at worst was 10 out of 10 on a pain scale. level that patient reports is acceptable is 3 out of 10 on a pain scale. Quality of pain is described as aching. Neuro: Level of Consciousness is awake, alert, Oriented to person, place, time, situation. 05:41 GI: Abdomen is round non-distended, Bowel sounds Abd is soft Abdomen is tender to ke1 palpation in left upper quadrant, right lower quadrant and left lower quadrant Reports lower abdominal pain, upper abdominal pain. Historical: - Allergies: 05:35 Toradol; ke1 05:35 tramadol; ke1 - Home Meds: 07:55 amlodipine 5 mg tab 1 tab once daily [Active]; carvedilol 25 mg Oral tab 1 tab 2 times desir per day [Active]; - PMHx: 05:35 Anemia; Hypertensive disorder; Lupus; ke1 - PSHx: 05:35 Mirena implant; ke1 - Immunization history:: Client reports receiving the 2nd dose of the Covid vaccine. - Social history:: Smoking status: Patient denies any tobacco usage or history of. Screenin:38 Abuse screen: Denies threats or abuse. Nutritional screening: No deficits noted. ke1 Tuberculosis screening: No symptoms or risk factors identified. Fall Risk No fall in past 12 months (0 pts). No secondary diagnosis (0 pts). No IV (0 pts). Ambulatory Aid- Furniture (30 pts.). Gait- Weak (10 pts.). Mental Status- Oriented to own ability (0 pts). Total Chambers Fall Scale indicates Low Risk Score (25-44 pts). Fall prevention measures have been instituted. Frequent Obs/Assesments occuring Family Present and informed to notify staff if they need to leave bedside As available Patient and Family Educated on Fall Prevention Program and strategies. Vital Signs: 05:32 BP 125 / 90; Pulse 86; Resp 22; Temp 98.4(O); Pulse Ox 100% ; Weight 83.91 kg; Height 5 ke1 ft. 3 in. (160.02 cm); Pain 10/10; 07:54 BP 111 / 82; Pulse 87; Resp 17; Pulse Ox 100% on R/A; desir 05:32 Body Mass Index 32.77 (83.91 kg, 160.02 cm) ke1 ED Course: 05:04 Patient arrived in ED. ja2 05:06 Zain Yanes, RN is Primary Nurse. ke1 05:35 Triage completed. ke1 05:39 Bed in low position. Call light in reach. Side rails up X2. ke1 05:41 Dez Villasenor MD is Attending Physician. mh7 06:46 Notified ED physician of a critical lab result(s). Hgb of 6.4, Hct of 20.5 Dr Villasenor bb notified. 07:08 Attending Physician role handed off by Dez Villasenor MD ms3 07:08 Nestor Cabrera DO is Attending Physician. ms3 07:55 Arm band placed on right wrist. desir 07:55 No provider procedures requiring assistance completed. Inserted saline lock: 20 gauge desir in left antecubital area, using aseptic technique. 08:39 CT Abd/Pelvis - Without Contrast In Process Unspecified. EDMS 09:19 Deep Rodas is Hospitalizing Provider. ms3 Administered Medications: 06:15 Drug: morphine 4 mg Route: IM; Site: right deltoid; ke1 06:35 Follow up: Response: Pain is unchanged, physician notified ke1 06:15 Drug: Zofran (ondansetron) 4 mg Route: IM; Site: right deltoid; ke1 06:30 Follow up: Response: Pain is unchanged, physician notified ke1 07:00 Drug: Dilaudid (HYDROmorphone) 1 mg Route: IVP; Site: left antecubital; desir 07:01 Follow up: Response: No adverse reaction desir 11:48 Drug: Zosyn (piperacillin-tazobactam) 3.375 grams Route: IVPB; Infused Over: 60 mins; desir Site: Other; Medication: 07:56 VIS not applicable for this client. desir Outcome: 09:20 Decision to Hospitalize by Provider. ms3 15:04 Patient left the ED. eb Signatures: Dispatcher [employer] EDMS Evelyn Dias RN RN Estelle Hyde Marcus, DO DO ms3 Dez Villasenor MD MD [facility] Amanda Cruz Heather, RN RN Zain Yanes RN RN ke1 Corrections: (The following items were deleted from the chart) 05:43 05:36 GI: ke1 ke1
[2022-03-09] MEDS ORDERED: NA CHLORIDE 0.9% 250 ML ONE (09:24)
[2022-03-09 09:47] LABS: Arterial Blood Carboxyhemoglob 1.1 % (0-1.5); Blood Gas Oxyhemoglobin 94.2 % (94-97); Blood O2 Saturation 96.8 % (92-98.5)
--- NOTE | 2022-03-09 10:27 | P.CNS ---
Date of Consult: 03/09/22 Reason for Consult: HERMILA/ CKD Requesting Physician: abi downs Chief Complaint: Abdominal pain History of Present Illness: 31 yo BF CKD, SLE presented to the ER with 4-5 days of severe, progressive abdominal pain/ peritonitis in the setting of immunosuppressants. Anorexia. Fatigue, weakness and malaise. Diarrhea. Decreased urine output. 06:05 This 31 yrs old Black Female presents to ER via Wheelchair with complaints of Abdominal mh7 Pain. 06:05 The patient presents with abdominal pain in the upper abdomen, in the lower abdomen. mh7 Onset: The symptoms/episode began/occurred 3 week(s) ago, and became worse 5 day(s) ago. The symptoms do not radiate. Associated signs and symptoms: Pertinent negatives: nausea, vomiting, and diarrhea, dysuria, fever, headache, hematuria, nausea, palpitations, shortness of breath, vaginal discharge, vomiting, vomiting blood. The symptoms are described as intermittent, vague, waxing/waning. Modifying factors: The symptoms are alleviated by nothing, the symptoms are aggravated by nothing. Severity of pain: At its worst the pain was moderate 2 day(s) ago, in the emergency department the pain is unchanged. 06:05 States that pain started after having a Mirena placed a few weeks ago.. Allergies ketorolac [From Toradol] Adverse Reaction (Unknown, Verified 03/09/22 16:39) adverse reaction to lupus, unknown tramadol Adverse Reaction (Unknown, Verified 03/09/22 16:39) adverse reaction to lupus Home medications list reviewed: Yes Home Medications: carvediloL [Coreg*] 25 mg PO BIDWM 10/28/21 Famotidine [Pepcid*] 20 mg PO DAILY #30 tab 01/19/22 predniSONE [Prednisone*] 20 mg PO BID #30 tab 01/19/22 Cholecalciferol (Vitamin D3) [Vitamin D3] 50 mcg PO DAILY 03/09/22 Mycophenolate Sodium [Mycophenolic Acid] 2 tab PO BID 03/09/22 - Past Medical/Surgical History Diabetic: No -: Lupus -: HTN -: 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 brain malformation. crohns Father Medical History: Heart disease - Social History Smoking Status: Never smoker Alcohol use: No CD- Drugs: No Caffeine use: Yes Review of Systems 10-point ROS is otherwise unremarkable General: Weakness, Malaise Gastrointestinal: Abdominal Pain Physical Examination General: Oriented x3, Cooperative, Acute distress HEENT: Atraumatic Neck: Supple Respiratory: Clear to auscultation bilaterally Cardiovascular: Regular rate/rhythm, Edema Gastrointestinal: Tenderness, Guarding Musculoskeletal: No clubbing, No contractures Integumentary: No rashes, No cyanosis Neurological: Normal speech Laboratory Data (last 24 hrs) 03/09/22 06:19: Sodium 138, Potassium 4.5, BUN 79 H, Creatinine 6.88 H*, Glucose 121 H, Total Bilirubin 0.1 L, AST 6 L, ALT 21, Alkaline Phosphatase 57, Lipase 129 03/09/22 06:19: WBC 4.7, Hgb 6.4 L*, Hct 20.5 L*, Plt Count 242 Imagings Data: EXAM DESCRIPTION: CT - Abdomen Pelvis Wo Contrast - 03/09/2022 8:37 am CLINICAL HISTORY: Abdominal pain, acute, nonlocalized COMPARISON: CT ABD PELVIS W CONTRAST dated 01/23/2013; Transvaginal Study Probe dated 02/05/2022 TECHNIQUE: Axial [address] imaging of the abdomen and pelvis was performed without IV contrast. No IV contrast was given because of allergy, abnormal renal function, patient refusal or physician request. No oral contrast administered. All CT scans are performed using dose optimization technique as appropriate and may include automated exposure control or mA/KV adjustment according to patient size. FINDINGS: No suspicious findings in the lung bases. The liver, spleen and pancreas show no suspicious findings on non-contrast imaging. Gallbladder is contracted around multiple gallstones. No biliary tree dilatation. No hydronephrosis or suspicious renal mass. No significant adrenal finding. Isodense renal masses and pyelonephritis cannot be excluded in the absence of IV contrast. The urinary bladder is without significant finding. IUD appears to be well positioned within the fundal and midportion of the uterus. Uterine contour is deformed by multiple fibroids. Along the left inferior margin of the fundus there is an approximately 3 centimeter fibroid. Right lateral approximately 3 centimeter fibroid seen as well. No fallopian tube or ovarian abnormality. There is no abnormal air or fluid collection in the pelvis. No gastric dilatation or gastric wall thickening. Fluid is present filling but not dilating the stomach. No duodenum abnormality seen. Proximal jejunal loops are abnormal. There is wall thickening and edema. Stranding is present in the adjacent mesenteric fat. In the proximal jejunum just distal to the ligament of Treitz there is abnormal air collection along the wall of the the jejunum extending as punctate areas of extraluminal free air. The adjacent splenic flexure region of the colon does have diverticulosis. However, no wall thickening or wall edema seen. The air is believed to be from jejunum rather than an acute diverticulitis. More distally the loops of ileum show no suspicious finding. No direct or indirect appendicitis findings. Left-sided colonic diverticulosis present without acute diverticulitis findings. No acute colon finding seen. No other area of free air or acute finding. No abscess or drainable fluid collection. No hernia, mass or bulky lymphadenopathy. No suspicious bony findings. Findings telephoned to referring physician 8:52 a.m. IMPRESSION: Wall thickening and edema involve multiple loops of jejunum with minimal amount of extra luminal free air adjacent to the proximal jejunum. No associated mass or foreign body identified. No abscess or drainable fluid collection. No free air distant from the jejunum. IUD appears to be well positioned within the multi fibroid uterus. No COPY WRITER or pelvic acute finding identifiable. Diverticulosis without acute diverticulitis. Multi stone cholelithiasis without acute finding. 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 Case reviewed with Dr. Downs and Dr. Bryson Critical Care: Yes (>30min)
[2022-03-09 10:47] LABS: Urine Specific Gravity/Preg 1.025 (1.005-1.030)
--- NOTE | 2022-03-09 11:00 | P.HP ---
Certification for Inpatient Patient admitted to: Inpatient With expected LOS: >2 Midnights Practitioner: I am a practitioner with admitting privileges, knowledge of patient current condition, hospital course, and medical plan of care. Services: Services provided to patient in accordance with Admission requirements found in Title 42 Section 412.3 of the Code of Federal Regulations Patient History Date of Service: 03/09/22 Reason for admission: Abdominal pain History of Present Illness: 31-year-old woman recently diagnosed with lupus nephritis, started on immunosuppressive therapy including CellCept presented to the emergency department with a complaint of abdominal pain of onset 3 weeks ago that has gotten progressively worse since the past 5 days. Symptoms associated with nausea, no vomiting. Patient was still complaining of severe pain after given a shot of IV morphine and Dilaudid in the ED. Blood work shows marked metabolic acidosis with a bicarb of 11, pH 7.2. Serum creatinine has increased from 6.8, it was 3 about [address] abdomen and pelvis demonstrated wall thickening and edema involve multiple loops of jejunum with minimal amount of extraluminal free air adjacent to the proximal jejunum. Hemoglobin of 6.4. Of note patient had a similar presentation in October 2021. Nephrology Dr. Potts contacted, patient started on 1 unit PRBC. She is admitted for further management. Allergies No Known Drug Allergies Allergy (Verified 03/12/15 23:34) Unknown Home Medications: Amlodipine [Norvasc*] 5 mg PO DAILY 10/28/21 Mycophenolate Mofetil [Cellcept] 3 tab PO BID 10/28/21 Norgestimate-Ethinyl Estradiol [Tri-Sprintec Tablet] 1 each PO DAILY 10/28/21 Olmesartan/Hydrochlorothiazide [Olmesartan-Hctz 40-12.5 mg Tab] 1 each PO DAILY 10/28/21 carvediloL [Coreg*] 25 mg PO BID 10/28/21 Hydrocodone 5/APAP 325 [[place] 5/325*] 1 tab PO Q8H PRN 3 Days #5 tab 11/05/21 Albuterol Neb [Proventil 0.083% Neb Soln] 2.5 mg NEB [id number] PRN #60 amp 01/19/22 Cholecalciferol (Vitamin D3) [Vitamin D 5,000 IU Cap*] 5,000 unit PO DAILY #30 cap 01/19/22 Docusate [Colace Cap*] 100 mg PO BID #60 cap 01/19/22 Famotidine [Pepcid*] 20 mg PO DAILY #30 tab 01/19/22 Myfortic 360 mg PO BID #60 01/19/22 Na Bicarb Tab [Sodium Bicarb 325 MG Tab*] 650 mg PO TIDWM #90 tab 01/19/22 predniSONE [Prednisone*] 20 mg PO BID #30 tab 01/19/22 - Past Medical/Surgical History Diabetic: No -: Lupus -: HTN -: Lupus nephritis followed by Dr. Potts -: Anemia -: oral surgery -: dialysis catheter and removal - Family History Brother -: Other (see notes) Notes: celiac disease. brain malformation. crohns - Social History Alcohol use: No CD- Drugs: No Caffeine use: Yes Place of Residence: Home Review of Systems Other: Patient denied any fever or dysuria or urinary frequency or hematuria or hematemesis or melena. Except as documented, all other systems reviewed and negative. Physical Examination - Physical Exam General: Alert, In no apparent distress, Other (Drowsy) HEENT: Mucous membr. moist/pink Neck: Supple, JVD not distended Respiratory: Clear to auscultation bilaterally, Normal air movement Cardiovascular: No edema, Regular rate/rhythm, Normal S1 S2 Capillary refill: <2 Seconds Gastrointestinal: Soft and benign, Non-distended, Tenderness (Diffuse), Guarding Musculoskeletal: No swelling, No tenderness Integumentary: No rashes, No erythema, No cyanosis Neurological: Normal speech, Normal strength at 5/5 x4 extr Lymphatics: No axilla or inguinal lymphadenopathy - Studies Laboratory Data (last 24 hrs) 03/09/22 06:19: Sodium 138, Potassium 4.5, BUN 79 H, Creatinine 6.88 H*, Glucose 121 H, Total Bilirubin 0.1 L, AST 6 L, ALT 21, Alkaline Phosphatase 57, Lipase 129 03/09/22 06:19: WBC 4.7, Hgb 6.4 L*, Hct 20.5 L*, Plt Count 242 Assessment and Plan - Problems (Diagnosis) (1) Acute worsening of stage 4 chronic kidney disease Current Visit: Yes Status: Acute (2) Metabolic acidosis Current Visit: Yes Status: Acute (3) Jejunitis Current Visit: Yes Status: Acute (4) Bowel perforation Current Visit: Yes Status: Acute (5) Anemia in chronic kidney disease Current Visit: Yes Status: Acute (6) Lupus nephritis Current Visit: No Status: Acute (7) SLE (systemic lupus erythematosus related syndrome) Current Visit: No Status: Acute - Plan Admit patient to the ICU. Nephrology consult. Blood transfusion started in the ED. Monitor H&H and transfuse as needed to keep hemoglobin greater than 7. Per report, General surgery-Dr. Bryson informed of patient's CT abdomen results and he requested patient to be admitted to the hospitalist service and he recommend medical management for now. Serial abdominal imaging and examinations. Supportive measures with IV opioids for pain, antiemetics Keep n.p.o. Bicarb drip Aggressive IV hydration. She does not meet criteria for sepsis. Check blood culture IV Zosyn for intra-abdominal infection. Hold Cellcept and other immunosuppressants for now. Nephrology to see patient. - Advance Directives Does patient have a Living Will: No Does patient have a Durable POA for Healthcare: No
[2022-03-09] MEDS ORDERED: HYDROMORPHONE HCL 1 MG/ML INJ IV ONE ×2 (11:23→11:45)
[2022-03-09] MEDS ORDERED: NACHLORIDE 0.45% 500 ML IV SCH ×2 (11:30→21:30)
[2022-03-09] MEDS ORDERED: D5W 1,000 ML with NA BICARB 8.4% 150 MEQ IV SCH ×4 (11:30→12:00)
[2022-03-09] MEDS ORDERED: NACHLORIDE 0.45% 500 ML IV ONE (11:45)
[2022-03-09] MEDS ORDERED: PIPERACIL/TAZO 3.375 GM VIAL IV ONE (11:52)
[2022-03-09] MEDS ORDERED: NA CHLORIDE 0.9% 0 ML ONE (11:52)
[2022-03-09] MEDS: D5W 1,000 ML with NA BICARB 8.4% 150 MEQ IV SCH ×2 (12:21)
[2022-03-09] MEDS: PIPER TAZO 3.375 GM in NA CHLORIDE 0.9% 100 ML IV SCH ×3 (12:21→20:18)
[2022-03-09] MEDS: ONDANSETRON 4 MG/2 ML VIAL IV PRN ×2 (12:25→18:25)
[2022-03-09] MEDS: HYDROMORPHONE HCL 2 MG/ML inj IV PRN ×2 (12:25→18:25)
[2022-03-09 17:41] LABS: Hematocrit 24.4 % (36.0-45.0)
[2022-03-09] MEDS ORDERED: SODIUM CHLORIDE 0.9% 10ML INJ IV PRN (21:19)
[2022-03-09] MEDS ORDERED: HYDROCORTISONE SUC 100 MG INJ IV ONE (21:29)
[2022-03-09] MEDS ORDERED: METHYLPREDNISOLONE 40 MG INJ IV SCH (21:30)
[2022-03-09] MEDS: PANTOPRAZOLE 40 MG INJ IVP SCH (21:58)
[2022-03-09] MEDS ORDERED: NACHLORIDE 0.45% 1,000 ML IV ONE (22:04)
[2022-03-10 00:09] LABS: Specific Gravity 1.025 (1.005-1.030); Urine Bilirubin Negative (Negative); Urine Blood Trace-lysed (Negative); Urine Clarity Clear (Clear); Urine Color Yellow (Yellow); Urine Glucose Negative (Negative); Urine Protein 2+ (Negative); Urine Urobilinogen 0.2 mg/dL (0.2-1.0); Urine pH 5.5 (5.0-7.0)
[2022-03-10 00:14] LABS: Urine Bacteria <20 /HPF (<20); Urine RBC <5 /HPF (None Seen)
[2022-03-10] MEDS: D5W 1,000 ML with NA BICARB 8.4% 150 MEQ IV SCH ×6 (01:09→18:27)
[2022-03-10] MEDS: METHYLPREDNISOLONE 40 MG INJ IV SCH ×3 (01:11→16:58)
[2022-03-10 04:46] LABS: Absolute Lymphocytes (CBC) 0.1 K/uL (0.7-4.9); Lymphocytes % 0.9 % (15.3-44.8); MCV 69.4 fL (80-100); MPV 7.4 fL (7.6-11.3); RBC Red Blood Cell Count 2.93 M/uL (3.86-4.86)
[2022-03-10 05:10] LABS: Hematocrit 20.3 % (36.0-45.0)
[2022-03-10 05:17] LABS: Bilirubin Total 0.2 mg/dL (0.2-1.0); Magnesium 1.5 mg/dL (1.8-2.4); Phosphorus 7.7 mg/dL (2.5-4.9); Potassium 4.2 mmol/L (3.5-5.1); Protein, Total 5.2 g/dL (6.4-8.2); Uric Acid 14.1 mg/dL (2.6-6.0)
[2022-03-10] MEDS ORDERED: NA CHLORIDE 0.9% 250 ML IV SCH (06:00)
--- NOTE | 2022-03-10 06:05 | P.PN ---
Date of Service: 03/10/22 Subjective: feels better today pain improved, no vomiting overnight kincaid placed last night with 400ml out ROS: 10 point ROS as noted above, otherwise negative Physical exam GEN: Alert, oriented, NAD HEENT: Normal conjunctiva, sclera anicteric CV: Regular rate and rhythm, no edema Pulm: Nonlabored respirations on room air ABD: Soft, moderate tenderness in epigastrium Integumentary: No rashes Neuro: Normal speech, normal affect Problem List Jejunitis with microperforation HERMILA on CKD 4 Metabolic acidosis, suspect secondary to HERMILA anemia in chronic kidney disease h/o lupus nephritis SLE blood pressure is borderline, s/p small boluses renal function not improved nephrology following continues on bicarb drip, IVF kincaid placed evening of 03/09, with 400ml out s/p 1uPRBC on admission, receiving another 1uPRBC today monitor H&H, keep Hgb > 7 Dr. Bryson following, medical management for now NPO blood cx: prelim growing GNR; ID consulted continue zosyn overall seems to be improving steroids started at higher dose on 03/09 Code: full Dispo: home, ~2-3 days Time Spent Managing Pts Care (In Minutes): 35
[2022-03-10] MEDS: NA CHLORIDE 0.9% 250 ML IV SCH (06:06)
[2022-03-10] MEDS ORDERED: NACHLORIDE 0.45% 1,000 ML IV ONE (08:00)
[2022-03-10] MEDS ORDERED: EPOETIN ALFA-EPBX 10,000 UNIT/ML VIAL ONE (08:13)
[2022-03-10] MEDS: PANTOPRAZOLE 40 MG INJ IVP SCH ×2 (08:15→20:14)
[2022-03-10] MEDS: PIPER TAZO 3.375 GM in NA CHLORIDE 0.9% 100 ML IV SCH ×2 (08:17→20:12)
[2022-03-10] MEDS ORDERED: EPOETIN ALFA-EPBX 10,000 UNIT/ML VIAL SQ SCH (09:00)
[2022-03-10 10:14] LABS: Arterial Blood Carboxyhemoglob 1.3 % (0-1.5); Blood Gas Oxyhemoglobin 94.8 % (94-97); Blood O2 Saturation 97.3 % (92-98.5)
[2022-03-10] MEDS: ONDANSETRON 4 MG/2 ML VIAL IV PRN ×2 (11:16→20:39)
[2022-03-10] MEDS: HYDROMORPHONE HCL 1 MG/ML INJ IV PRN ×2 (11:17→20:39)
[2022-03-10 11:56] LABS: Hematocrit 22.4 % (36.0-45.0)
--- NOTE | 2022-03-10 11:56 | P.CNS ---
Date of Consult: 03/10/22 Chief Complaint: Abdominal pain History of Present Illness: The patient is a 31-year-old female with a past medical history of lupus complicated by nephritis started on CellCept who presented to the ED due to complaints of abdominal pain for the past 3 weeks. Symptoms included nausea and vomiting. CT abdomen and pelvis obtained on 03/09 showed a proximal jejunum perforation. Blood cultures obtained on 03/09 preliminary results are growing gram-negative rods. Urine culture pending, urine analysis positive for bacteria. Patient does not denies dysuria, increased urinary frequency/urgency, pyuria, or hematuria. Due to severe pain, she was giving IV morphine in addition to IV Dilaudid in the ED. Blood work showed showed marked metabolic acidosis, she was started on a bicarb drip. Creatinine on admission elevated at 6.88, today has increased to 7.37. Patient also with marked anemia, received 1 unit of packed red blood cells yesterday, an additional unit today. Her CellCept has been held. IV Zosyn started on 03/09. Patient also started on high-dose Solu-Medrol 40 mg every 8 hours. She has not been admitted to the ICU for further care. Allergies ketorolac [From Toradol] Adverse Reaction (Unknown, Verified 03/09/22 16:39) adverse reaction to lupus, unknown tramadol Adverse Reaction (Unknown, Verified 03/09/22 16:39) adverse reaction to lupus Home Medications: carvediloL [Coreg*] 25 mg PO BIDWM 10/28/21 Famotidine [Pepcid*] 20 mg PO DAILY #30 tab 01/19/22 predniSONE [Prednisone*] 20 mg PO BID #30 tab 01/19/22 Cholecalciferol (Vitamin D3) [Vitamin D3] 50 mcg PO DAILY 03/09/22 Mycophenolate Sodium [Mycophenolic Acid] 2 tab PO BID 03/09/22 - Past Medical/Surgical History Diabetic: No -: Lupus -: HTN -: Lupus nephritis followed by Dr. Potts -: Anemia -: IUD -: oral surgery -: dialysis catheter and removal - Family History Brother Medical History: Other (see notes) Notes: celiac disease. brain malformation. crohns Father Medical History: Heart disease - Social History Smoking Status: Never smoker Alcohol use: No CD- Drugs: No Caffeine use: Yes Place of Residence: Home Review of Systems 10-point ROS is otherwise unremarkable Physical Examination Temp Pulse Resp BP Pulse Ox 98.2 F 111 H 23 H 92/63 97 03/10/22 04:00 03/10/22 06:00 03/10/22 11:17 03/10/22 06:00 03/10/22 11:17 General: Oriented x3, Moderate distress HEENT: Atraumatic Neck: Supple Respiratory: Clear to auscultation bilaterally, Normal air movement Cardiovascular: No edema, Normal pulses, Regular rate/rhythm Capillary refill: <2 Seconds Gastrointestinal: Other (Right upper quadrant tenderness) Musculoskeletal: No clubbing, No swelling, No contractures, No erythema Conclusions/Impression: Antibiotics Zosyn: 03/09current Lines: Right external jugular Peripheral to right forearm Peripheral to right risk Rivera placed on 03/09 ~All line sites are clean dry and intact with no clinical signs of infection Assessment/plan Gram-negative bacteremia secondary to abdominal perforation -Preliminary blood cultures obtained on 03/09 growing gram-negative rods. Recommend continuing renally dosed Zosyn at this time until speciation/susceptibility is obtained -Patient n.p.o. -Origin of intestinal perforation unclear, possible side effect of CellCept CellCept being held due to active infection -Patient currently on high-dose Solu-Medrol 40 mg every 8 hours HERMILA secondary to lupus nephritis Creatinine increasing Nephrology following -Continue gentle hydration, urine output yesterday was 500 mL Metabolic acidosis Currently on bicarb drip Anemia Status post 2 units of packed red blood cells Plan of care discussed with Dr. Villegas Thank you for consultation
[2022-03-10] MEDS ORDERED: NACHLORIDE 0.45% 1,000 ML IV SCH (15:00)
--- NOTE | 2022-03-10 15:32 | P.CNS ---
Date of Consult: 03/09/22 PC: I was asked to see this 31-year-old female in regards to her abdominal pain. HPC: This patient, who has systemic lupus as well as renal failure, presented emergency room with a history of abdominal pain. Has been going on for the last couple of days, at least . Has been at home, taking some Excedrin for pain relief. Could no longer stand it and her mom brought her in for evaluation. PMHx: SLE, borderline ESRD, Social Hx: Allergic to ketorolac, tramadol Sys R: No cough, wheeze, shortness of breath. No chest pain or palpitations. O/E: Vital signs currently stable, HEENT: Nonicteric Chest: Chest movement equal bilaterally Abd: Tender in the epigastric area Data: CT scan shows evidence of some inflammation around the jejunum, questionable extraluminal air Impression: Inflammatory process in the small bowel, possible complication of SLE or meds used to treated Plan: Patient does not require surgical intervention at this time. Steroid treatment may be an option at this point. Discussed with
--- NOTE | 2022-03-10 15:34 | P.PN ---
Date of Service: 03/10/22 S: Patient apparently feels much better today. Vital signs remained stable. O: Abdomen is soft, minimal tenderness today, no guarding or rebound A: Clinically much improved since yesterday. P: Anticipate that this inflammatory process of the judgment will resolve without requiring surgical intervention. We will still follow along with you.
--- NOTE | 2022-03-10 17:57 | P.PN ---
Date of Service: 03/10/22 Vital Signs Temp Pulse Resp BP Pulse Ox 97.7 F 100 H 29 H 105/82 97 03/10/22 16:00 03/10/22 17:00 03/10/22 17:00 03/10/22 17:00 03/10/22 17:00 Medications Hydromorphone HCl (Hydromorphone Hcl 1 Mg/Ml Inj) 1 mg IV Q4H PRN PRN Reason: Pain scale 8-10 (Severe) Last Admin: 03/10/22 11:17 Dose: 1 mg Documented by: Piperacillin Sod/Tazobactam (Sod 3.375 gm/ Sodium Chloride) 100 mls @ 25 mls/hr IV Q12HR [facility]; Protocol Last Admin: 03/10/22 08:17 Dose: 100 mls Documented by: Sodium Chloride (Sodium Chloride) 250 mls @ 0 mls/hr IV .Q0M ABDI Last Admin: 03/10/22 06:06 Dose: 250 mls Documented by: Sodium Bicarbonate 150 meq/ (Dextrose/Water) 1,150 mls @ 100 mls/hr IV .[id number] [facility] Last Admin: 03/10/22 12:30 Dose: Not Given Documented by: Methylprednisolone Sodium Succinate (Methylprednisolone 40 Mg Inj) 40 mg IV Q8HR ABDI Last Admin: 03/10/22 16:58 Dose: 40 mg Documented by: Ondansetron HCl (Ondansetron 4 Mg/2 Ml Vial) 4 mg IV Q6HP PRN PRN Reason: NAUSEA / VOMITING Last Admin: 03/10/22 11:16 Dose: 4 mg Documented by: Pantoprazole Sodium (Pantoprazole 40 Mg Inj) 40 mg IVP Q12HR [facility]; Protocol Last Admin: 03/10/22 08:15 Dose: 40 mg Documented by: Sodium Chloride (Flush Normal Saline 10 Ml) 10 ml IV BID ABDI Last Admin: 03/10/22 08:18 Dose: 10 ml Documented by: Sodium Chloride (Sodium Chloride 0.9% 10ml Inj) 10 ml IV UD PRN PRN Reason: Diluant Lab Results (last 24 hrs) 03/09/22 07:41: ABO/Rh O POSITIVE, Solid Phase Ab Screen Negative, Crossmatch See Detail Assessment/ Plan: Nephrology Feeling better today with less abdominal pain No chest pain Weakness and fatigue Hypotension overnight with low urine output Vitals, medications, blood work and imaging reviewed in the chart. General: Oriented x3, Cooperative, NAD HEENT: Atraumatic Neck: Supple Respiratory: Normal respiratory effort Cardiovascular: Regular rate/rhythm, Edema Gastrointestinal: Tenderness Musculoskeletal: No clubbing, No contractures Integumentary: No rashes, No cyanosis Neurological: Normal speech Laboratory Data (last 24 hrs) 03/09/22 06:19: Sodium 138, Potassium 4.5, BUN 79 H, Creatinine 6.88 H*, Glucose 121 H, Total Bilirubin 0.1 L, AST 6 L, ALT 21, Alkaline Phosphatase 57, Lipase 129 03/09/22 06:19: WBC 4.7, Hgb 6.4 L*, Hct 20.5 L*, Plt Count 242 Imagings Data: EXAM DESCRIPTION: CT - Abdomen Pelvis Wo Contrast - 03/09/2022 8:37 am CLINICAL HISTORY: Abdominal pain, acute, nonlocalized COMPARISON: CT ABD PELVIS W CONTRAST dated 01/23/2013; Transvaginal Study Probe dated 02/05/2022 TECHNIQUE: Axial [address] imaging of the abdomen and pelvis was performed without IV contrast. No IV contrast was given because of allergy, abnormal renal function, patient refusal or physician request. No oral contrast administered. All CT scans are performed using dose optimization technique as appropriate and may include automated exposure control or mA/KV adjustment according to patient size. FINDINGS: No suspicious findings in the lung bases. The liver, spleen and pancreas show no suspicious findings on non-contrast imaging. Gallbladder is contracted around multiple gallstones. No biliary tree dilatation. No hydronephrosis or suspicious renal mass. No significant adrenal finding. Isodense renal masses and pyelonephritis cannot be excluded in the absence of IV contrast. The urinary bladder is without significant finding. IUD appears to be well positioned within the fundal and midportion of the uterus. Uterine contour is deformed by multiple fibroids. Along the left in ferior margin of the fundus there is an approximately 3 centimeter fibroid. Right lateral approximately 3 centimeter fibroid seen as well. No fallopian tube or ovarian abnormality. There is no abnormal air or fluid collection in the pelvis. No gastric dilatation or gastric wall thickening. Fluid is present filling but not dilating the stomach. No duodenum abnormality seen. Proximal jejunal loops a re abnormal. There is wall thickening and edema. Stranding is present in the adjacent mesenteric fat. In the proximal jejunum just distal to the ligament of Treitz there is abnormal air collection along the wall of the the jejunum extending as punctate areas of extraluminal free air. The adjacent splenic flexure region of the colon does have diverticulosis. However, no wall thickening or wall edema seen. The air is believed to be from jejunum rather than an acute diverticulitis. More distally the loops of ileum show no suspicious finding. No direct or indirect appendicitis findings. Left-sided colonic diverticulosis present without acute diverticulitis findings. No acute colon finding seen. No other area of free air or acute finding. No abscess or drainable fluid collection. No hernia, mass or bulky lymphadenopathy. No suspicious bony findings. Findings telephoned to referring physician 8:52 a.m. IMPRESSION: Wall thickening and edema involve multiple loops of jejunum with minimal amount of extra luminal free air adjacent to the proximal jejunum. No associated mass or foreign body identified. No abscess or drainable fluid collection. No free air distant from the jejunum. IUD appears to be well positioned within the multi fibroid uterus. No GUN NUMBERER or pelvic acute finding identifiable. Diverticulosis without acute diverticulitis. Multi stone cholelithiasis without acute finding. 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 -No NSAIDs -1/2NS IV bolus today X2 -Continue Solumedrol -May need to consider dialysis; HBV panel pending -Complement and DS DNA pending AG Acidosis in the setting of HERMILA -Continue bicarb gtt -Repeat ABG reviewed HTN complicated by hypotension -Hold anti-hypertensives -IVF bolus as needed -Albumin 50g IV X1 Moderate malnutrition Hypoalbuminemia -NPO at this time -Continue Protonix -Albumin 50g IV X1 Anemia in chronic illness -Retacrit TIW -PRBC as ordered CKD MBD HyperPO4 -NPO at this time Jejunitis with performation may be due to Mycophenolate therapy Peritonitis -Continue IV Abx; Follow up culture -Dilaudid IV prn -Hold Mycophenolate -Continue Protonix IV q12h -Continue Solumedrol q8h Case reviewed with Dr. Pollack Greater than 30min patient care
[2022-03-10] MEDS ORDERED: ALBUMIN HUMAN 25% 200 ML IV ONE (18:00)
[2022-03-11] MEDS: D5W 1,000 ML with NA BICARB 8.4% 150 MEQ IV SCH ×2
[2022-03-11] MEDS: METHYLPREDNISOLONE 40 MG INJ IV SCH ×3 (00:21→16:21)
[2022-03-11 05:16] LABS: Absolute Lymphocytes (CBC) 0.2 K/uL (0.7-4.9); Lymphocytes % 1.8 % (15.3-44.8); MCV 70.4 fL (80-100); MPV 8.3 fL (7.6-11.3); RBC Red Blood Cell Count 2.74 M/uL (3.86-4.86)
[2022-03-11 05:22] LABS: Hematocrit 19.3 % (36.0-45.0)
--- NOTE | 2022-03-11 06:01 | P.PN ---
Date of Service: 03/11/22 Subjective: no nausea/vomiting. feeling slightly better this morning less abdominal discomfort thirsty/hungry felt a little jittery this morning, sweating overnight ROS: 10 point ROS as noted above, otherwise negative Physical exam GEN: Alert, oriented, NAD HEENT: Normal conjunctiva, sclera anicteric CV: Regular rate and rhythm, no edema Pulm: Non-labored respirations on room air ABD: Soft, moderate tenderness in epigastrium Neuro: Normal speech, normal affect Problem List Jejunitis with microperforation HERMILA on CKD 4 Metabolic acidosis, suspect secondary to HERMILA anemia in chronic kidney disease h/o lupus nephritis SLE hyperphosphatemia BP improved renal function worsened. nephrology following plan for initiation of dialysis kincaid placed evening of 03/09 s/p daily 1uPRBC, will need another today (3rd) monitor H&H, keep Hgb > 7 Dr. Bryson following, medical management for now regarding GI, on clear liquids blood cx: prelim growing GNR; ID consulted continue zosyn overall seems to be improving steroids started at higher dose on 03/09 Code: full Dispo: home, ~2-3 days Time Spent Managing Pts Care (In Minutes): 35
[2022-03-11 06:03] LABS: Albumin 2.4 g/dL (3.4-5.0); Bilirubin Total 0.3 mg/dL (0.2-1.0); Magnesium 1.8 mg/dL (1.8-2.4); Potassium 3.4 mmol/L (3.5-5.1); Protein, Total 5.5 g/dL (6.4-8.2)
[2022-03-11 06:06] LABS: Phosphorus 8.7 mg/dL (2.5-4.9)
[2022-03-11] MEDS: NA CHLORIDE 0.9% 250 ML IV SCH (08:09)
[2022-03-11] MEDS: PANTOPRAZOLE 40 MG INJ IVP SCH ×2 (08:19→21:20)
[2022-03-11] MEDS: PIPER TAZO 3.375 GM in NA CHLORIDE 0.9% 100 ML IV SCH (08:20)
--- NOTE | 2022-03-11 09:43 | P.PN ---
Date of Service: 03/11/22
--- NOTE | 2022-03-11 09:50 | P.PN ---
Date of Service: 03/11/22 Nephrology Pt receiving additional blood this AM, no longer hypotensive, denies current abdominal pain or nausea. Wanting to eat. Renal function no better, remains oliguric. Vitals, medications, blood work and imaging reviewed in the chart. General: NAD, non tachypnec HEENT: Atraumatic, NC present Neck: Supple, Rt EJ catheter Respiratory: Normal respiratory effort, b/l air entry Cardiovascular: Regular rate/rhythm, no gallops Gastrointestinal: Reduced BS, soft, ND, NT to light palpation Musculoskeletal: No clubbing, No contractures Ext: No sig LE edema Integumentary: No rashes, No cyanosis Neurological: Normal speech, awake, alert, non encephalopathic Conclusions/Impression: Stage III ARF with presenting Cr level > 4 mg/dl in the setting of hypotension, anemia, sepsis, other likely leading to some ATN CKD IV underlying with proteinuria due to Lupus nephritis -Remains oliguric, renal function plateaued, no better. Mod azotemia, will proced with HD for metab clearance. Given positive BCx, will hold off on TDC placement and ask for a temp dialysis catheter instead. Metab Acidosis in the setting of renal failure, other -Bicarb deficit better, will receive bicarb load on dialysis Hypotension, other -Resolved, has received crystalloids/colloids bolus, stop maintenance IVF Acute on chronic anemia related to chronic illnesses including lupus, CKD, other -Has received several units of PRBC, no reports of melena, MCV is low, likely iron deficient but with recent transfusions, will hold off on iron studies SLE with lupus nephritis -On PO Pred at home with Cellcept, holding latter, switched to IV Hydrocortisone currently for the former. Studies pending to see how active lupus is currently. Martin Joseph MD, [facility]
[2022-03-11] MEDS ORDERED: 0.9 % SODIUM CHLORIDE 0 ML ONE (10:27)
[2022-03-11] MEDS ORDERED: PIPER TAZO 2.25 GM in NA CHLORIDE 0.9% 50 ML IV SCH (11:00)
--- NOTE | 2022-03-11 11:56 | P.PN ---
Subjective Date of Service: 03/11/22 Chief Complaint: Abdominal pain Patient seen and examined at bedside, not responding to blood transfusions. Keeps having dips in hemoglobin, status post third unit today. Plan for emergent dialysis. Review of Systems 10-point ROS is otherwise unremarkable Physical Examination - Vital Signs Temperature: 96.1 F Blood Pressure: 120/89 Pulse: 71 Respirations: 16 Pulse Ox (%): 94 - Studies Laboratory Last Values WBC 4.7 K/uL (4.3-10.9) 03/09/22 06:19 RBC 2.98 M/uL (3.86-4.86) L 03/09/22 06:19 Hgb 6.4 g/dL (12.0-15.0) L* 03/09/22 06:19 Hct 20.5 % (36.0-45.0) L* 03/09/22 06:19 MCV 68.7 fL (80-100) L D 03/09/22 06:19 MCH 21.3 pg (27.0-35.0) L 03/09/22 06:19 MCHC 31.0 g/dL (32.0-36.0) L 03/09/22 06:19 RDW 20.5 % (12.1-15.2) H 03/09/22 06:19 Plt Count 242 K/uL (152-406) 03/09/22 06:19 MPV 7.8 fL (7.6-11.3) 03/09/22 06:19 Neutrophils % 91.9 % (41.7-73.7) H 03/09/22 06:19 Lymphocytes % 3.4 % (15.3-44.8) L 03/09/22 06:19 Monocytes % 3.6 % (3.3-12.3) 03/09/22 06:19 Eosinophils % 0.2 % (0-4.4) 03/09/22 06:19 Basophils % 0.9 % (0-1.3) 03/09/22 06:19 Absolute Neutrophils 4.4 K/uL (1.8-8.0) 03/09/22 06:19 Absolute Lymphocytes 0.2 K/uL (0.7-4.9) L 03/09/22 06:19 Absolute Monocytes 0.2 K/uL (0.1-1.3) 03/09/22 06:19 Absolute Eosinophils 0.0 K/uL (0-0.5) 03/09/22 06:19 Absolute Basophils 0.0 K/uL (0-0.5) 03/09/22 06:19 Platelet Estimate Adeq 03/09/22 06:19 Hypochromasia 1+ 03/09/22 06:19 Poikilocytosis 2+ 03/09/22 06:19 Anisocytosis 2+ 03/09/22 06:19 Microcytosis 2+ 03/09/22 06:19 Macrocytosis Slight 03/09/22 06:19 Tear Drop Cells 2+ 03/09/22 06:19 Ovalocytes 1+ 03/09/22 06:19 Schistocytes 1+ 03/09/22 06:19 Morphology Comment Noted (NOT SEEN) 03/09/22 06:19 pH 7.22 (7.35-7.45) L 03/09/22 09:40 pCO2 25.3 mmHG (35-45) L 03/09/22 09:40 pO2 99.9 mmHG (75-100) 03/09/22 09:40 HCO3 9.9 mmol/L (22-28) L 03/09/22 09:40 Base Excess -16.5 mmol/L 03/09/22 09:40 Oxyhemoglobin 94.2 % (94-97) 03/09/22 09:40 ABG O2 Sat (Measured) 96.8 % (92-98.5) 03/09/22 09:40 ABG Carboxyhemoglobin 1.1 % (0-1.5) 03/09/22 09:40 ABG Methemoglobin 1.6 % (0-1.5) H 03/09/22 09:40 Other Total Hgb 6.3 g/dl (12-18) L 03/09/22 09:40 Inspired O2 21.0 % 03/09/22 09:40 Sodium 138 mmol/L (136-145) 03/09/22 06:19 Potassium 4.5 mmol/L (3.5-5.1) 03/09/22 06:19 Chloride 111 mmol/L (98-107) H 03/09/22 06:19 Carbon Dioxide 11 mmol/L (21-32) L* 03/09/22 06:19 Anion Gap 20.5 mEq/L (5.0-15.0) H 03/09/22 06:19 BUN 79 mg/dL (7-18) H 03/09/22 06:19 Creatinine 6.88 mg/dL (0.55-1.3) H* 03/09/22 06:19 Est GFR (CKD-EPI) 8 ml/min (=/>90) L 03/09/22 06:19 Glucose 121 mg/dL (74-106) H 03/09/22 06:19 Calcium 8.4 mg/dL (8.5-10.1) L 03/09/22 06:19 Total Bilirubin 0.1 mg/dL (0.2-1.0) L 03/09/22 06:19 AST 6 U/L (15-37) L 03/09/22 06:19 ALT 21 U/L (12-78) 03/09/22 06:19 Alkaline Phosphatase 57 U/L (45-117) 03/09/22 06:19 Serum Total Protein 6.1 g/dL (6.4-8.2) L 03/09/22 06:19 Albumin 2.6 g/dL (3.4-5.0) L 03/09/22 06:19 Globulin 3.5 g/dL (2.3-3.5) 03/09/22 06:19 Albumin/Globulin Ratio 0.7 (1.1-1.8) L 03/09/22 06:19 Lipase 129 U/L (73-393) 03/09/22 06:19 Urine pH 5.5 (5.0-7.0) 03/09/22 06:39 Ur Specific [place] 1.025 (1.005-1.030) 03/09/22 06:39 Glucose (UA)(Auto) Negative (Negative) 03/09/22 06:39 Urine Ketones Negative (Negative) 03/09/22 06:39 Urine Blood Trace-lysed (Negative) H 03/09/22 06:39 Urine Nitrite Negative (Negative) 03/09/22 06:39 Ur Leukocyte Esterase Negative (Negative) 03/09/22 06:39 Urine RBC <5 /HPF (None Seen) 03/09/22 06:47 Urine WBC <5 /HPF (<5) 03/09/22 06:47 Ur Squamous Epith Cells <5 /HPF (None Seen) 03/09/22 06:47 Amorphous Crystals 3+ /HPF (None Seen) H 03/09/22 06:47 Urine Bacteria 20-50 /HPF (<20) H 03/09/22 06:47 Hyaline Casts 0-5 /LPF (None Seen) 03/09/22 06:47 Urine Total Protein 2+ (Negative) H 03/09/22 06:39 Ur Specific [place] (HCG) 1.025 (1.005-1.030) 03/09/22 06:42 Urine Test Neg (NEG) 03/09/22 06:42 SARS-CoV-2 Rap RNA(RT-PCR) Negative (NEGATIVE) 03/09/22 09:58 Smear Scan Ok (OK) 03/09/22 06:19 ABO/Rh O POSITIVE 03/09/22 07:41 Solid Phase Ab Screen Negative 03/09/22 07:41 Crossmatch See Detail 03/09/22 07:41 Microbiology Data (last 24 hrs): 03/09/22 06:47 Clean Catch Urine [place] Count - Final No growth. 03/09/22 06:47 Clean Catch Urine - Final No growth. Assessment And Plan - Plan Physical exam: General: Oriented x3, Moderate distress HEENT: Atraumatic Neck: Supple Respiratory: Clear to auscultation bilaterally, Normal air movement Cardiovascular: No edema, Normal pulses, Regular rate/rhythm Capillary refill: <2 Seconds Gastrointestinal: Other (Right upper quadrant tenderness) Musculoskeletal: No clubbing, No swelling, No contractures, No erythema Conclusions/Impression: Antibiotics Zosyn: 03/09current Assessment/plan Gram-negative bacteremia secondary to micro abdominal perforation -Preliminary blood cultures obtained on 03/09 growing gram-negative rods. Recommend continuing renally dosed Zosyn at this time until speciation/susceptibility is obtained -Diet advanced to clear liquids on 03/11 -Origin of intestinal perforation unclear, possible side effect of CellCept CellCept being held due to active infection -Patient currently on high-dose Solu-Medrol 40 mg every 8 hours HERMILA secondary to lupus nephritis -Plan for dialysis today Metabolic acidosis Resolved Anemia Status post 3 units of packed red blood cells Plan of care discussed with Dr. Villegas Thank you for consultation
[2022-03-11] MEDS ORDERED: NA CHLORIDE 0.9% 0 ML ONE (13:59)
[2022-03-11] MEDS ORDERED: LIDOCAINE 1% 20 ML MDV ONE (14:09)
--- NOTE | 2022-03-11 14:42 | RAD REPORT ---
EXAM DESCRIPTION: RAD - Chest Single View - 03/11/2022 2:34 pm CLINICAL HISTORY: S/P Abe placement COMPARISON: Chest Single View dated 02/11/2022; Chest Single View dated 11/03/2021; Chest Single View dated 11/01/2021; Chest Pa And Lat (2 Views) dated 05/08/2018; Abdomen Pelvis Wo Contrast dated 2021 FINDINGS: Lines: Left subclavian approach dialysis catheter with tip overlying the proximal SVC. Lungs: No evidence of edema or pneumonia. Pleural: No significant pleural effusions or pneumothorax. Cardiac: Enlarged cardiac silhouette. Bones: No acute fractures. Other: IMPRESSION: No acute cardiopulmonary disease. Left subclavian approach dialysis catheter with tip ov erlying the proximal SVC. No pneumothorax.
[2022-03-11 14:58] LABS: Hematocrit 24.2 % (36.0-45.0)
--- NOTE | 2022-03-11 15:08 | P.PN ---
Date of Service: 03/11/22 S: Patient has no specific complaints today, obviously much improved. Chatting spontaneously. No specific complaints. O: Vital signs are stable, abdomen is soft, nontender A: Surgically stable P: Patient is abdomen is much improved. Has been tolerating clear liquids. May advance diet as tolerated. The event security officer is concerned about the patient's decrease in kidney function and tendency towards acidotic. He is recommends the patient have some temporary dialysis to see how her kidneys respond to this. In view of the fact she has a bacteremia, would probably benefit from a left subclavian temporary catheter and then if required, a right IJ or other tunneled line could be used. I have discussed this with the patient. She is agreeable. We will place a left subclavian temporary dialysis catheter. The risks of been explained. She understands and wants to proceed.
--- NOTE | 2022-03-11 15:11 | P.OP ---
Preoperative diagnosis: Lack of vascular access Postoperative diagnosis: The same Primary procedure: Insertion of left subclavian temporary dialysis catheter Anesthesia: Local Estimated blood loss: Within 10 cc Operative Technique: After having obtained consent, and performing a surgical timeout, the patient was positioned in the ICU bed with a roll between her shoulders. The area of the left chest was now prepped with a chlorhexidine solution. The bed was maneuvered into Trendelenburg. Gentle traction was applied to the left arm. The subclavicular area on the left side was then injected with a lidocaine solution. A finder needle was now used to cannulate the left subclavian vein. This was achieved after 2 passes. Good venous blood flow having been obtained, the guidewire was passed down through our needle. Having obtained some slight ectopy, the needle was removed leaving the guidewire in place. A small incision was made at the junction of the guidewire with the skin. The dilators were then passed to dilate up this tract into the subclavian vein. The straight dialysis catheter was now slid over the guidewire. Having placed in a good position, the guidewire was removed. The catheter was now flushed with a saline solution. It was then sutured in place. At the end of the procedure she was in a stable condition, chest x-ray is pending. Complications: None Transferred to: ICU Condition: Good
[2022-03-11] MEDS: PIPER TAZO 2.25 GM in NA CHLORIDE 0.9% 50 ML IV SCH (21:00)
[2022-03-11] MEDS: HYDROMORPHONE HCL 1 MG/ML INJ IV PRN (21:40)
[2022-03-11] MEDS: ONDANSETRON 4 MG/2 ML VIAL IV PRN (21:40)
[2022-03-11] MEDS ORDERED: HYDROMORPHONE HCL 1 MG/ML INJ IV STA (22:03)
[2022-03-12] MEDS: METHYLPREDNISOLONE 40 MG INJ IV SCH ×3 (00:32→16:08)
[2022-03-12 04:54] LABS: Absolute Lymphocytes (CBC) 0.1 K/uL (0.7-4.9); Hematocrit 28.6 % (36.0-45.0); Lymphocytes % 0.9 % (15.3-44.8); MCV 75.5 fL (80-100); MPV 8.2 fL (7.6-11.3); RBC Red Blood Cell Count 3.78 M/uL (3.86-4.86)
[2022-03-12 05:08] LABS: Albumin 2.1 g/dL (3.4-5.0); Bilirubin Total 0.4 mg/dL (0.2-1.0); Magnesium 1.9 mg/dL (1.8-2.4); Phosphorus 6.1 mg/dL (2.5-4.9); Potassium 3.8 mmol/L (3.5-5.1); Protein, Total 5.6 g/dL (6.4-8.2)
--- NOTE | 2022-03-12 05:57 | P.PN ---
Date of Service: 03/12/22 Subjective: slight increased in abd discomfort last night, overall feeling ok, hungry +flatus, +loose stool last night x2, c.diff ordered / sent tolerated dialysis ROS: 10 point ROS as noted above, otherwise negative Physical exam GEN: Alert, oriented, NAD HEENT: Normal conjunctiva, sclera anicteric CV: Regular rate and rhythm, no edema Pulm: Non-labored respirations on room air ABD: Soft, mild tenderness in epigastrium, +bowel sounds Neuro: Normal speech, normal affect Problem List Jejunitis with microperforation HERMILA on CKD 4 Metabolic acidosis secondary to HERMILA anemia in chronic kidney disease h/o lupus nephritis SLE hyperphosphatemia jejunitis possibly secondary to mycophenolate therapy improving, diet advanced; general surgery following renal function worsened, patient started dialysis 7.20, tolerated well continue HD per nephrology kincaid placed evening of 03/09,, monitor UOP s/p 3uPRBC., hgb improving solum [id number] started on 03/09 by nephro, will discuss further, given ongoing improvement, for possible titrating down increased WBC likely from steroids. remains afebrile monitor H&H, keep Hgb > 7 Blood cx: pansensitive e.coli, urine cx: negative continue zosyn overall seems to be improving Code: full Dispo: home, ~4 days monitoring renal function / if HD may be temporary Time Spent Managing Pts Care (In Minutes): 35
[2022-03-12 06:13] VITALS: BMI 35.5
[2022-03-12] MEDS: PANTOPRAZOLE 40 MG INJ IVP SCH ×2 (07:37→21:55)
[2022-03-12] MEDS: PIPER TAZO 2.25 GM in NA CHLORIDE 0.9% 50 ML IV SCH ×2 (07:37→21:46)
[2022-03-12] MEDS: HYDROMORPHONE HCL 1 MG/ML INJ IV PRN ×3 (07:38→21:56)
--- NOTE | 2022-03-12 09:34 | P.PN ---
Date of Service: 03/12/22 Nephrology Pt dialyzed uneventfully yesterday, reports some intermittent abd pain, some nausea after pain meds, BP no longer low Vitals, medications, blood work and imaging reviewed in the chart. General: NAD, non tachypnec HEENT: Atraumatic, NC present Neck: Supple, Rt EJ catheter, Lt SC dialysis catheter Respiratory: Normal respiratory effort, b/l air entry Cardiovascular: Regular rate/rhythm, no gallops Gastrointestinal: Reduced BS, soft, ND, NT to light palpation Musculoskeletal: No clubbing, No contractures Ext: No sig LE edema Integumentary: No rashes, No cyanosis Neurological: Normal speech, awake, alert, non encephalopathic Conclusions/Impression: Stage III ARF with presenting Cr level > 4 mg/dl in the setting of hypotension, anemia, sepsis, other likely leading to some ATN CKD IV underlying with proteinuria due to Lupus nephritis -Metab profile (azotemia, hypocalcemia, hyperphosphatemia) better post HD, no urgent need to repeat dialysis today. Cont iHD, trend renal function and UOP closely Metab Acidosis in the setting of renal failure, other -Bicarb deficit resolved Hypotension, other. Underlying chronic HTN -Resolved, stopped maintenance IVF. Will restart Amlodipine with holding parameter Acute on chronic anemia related to chronic illnesses including lupus, CKD, other -Has received several units of PRBC, no reports of melena, MCV is low, likely iron deficient but with recent transfusions, will hold off on iron studies and plan for IV iron series if she is not bacteremic. SLE with lupus nephritis -On PO Pred at home with Cellcept, holding latter, switched to IV Hydrocortisone currently for the former. Studies pending to see how active lupus is currently. Martin Joseph MD, [facility]
--- NOTE | 2022-03-12 11:20 | P.PN ---
Subjective Date of Service: 03/12/22 Chief Complaint: Abdominal pain Patient seen and examined at bedside, hemoglobin improving. Having some generalized abdominal pain. States she had 2 episodes of diarrhea yesterday, C. difficile pending. Apparently patient has a history of chronic diarrhea. However, patient states that she has only had 2 episodes throughout her whole hospitalization. Nonetheless, C. difficile stool sample pending with contact precautions in place. Review of Systems 10-point ROS is otherwise unremarkable Physical Examination - Vital Signs Temperature: 97.9 F Blood Pressure: 143/96 Pulse: 62 Respirations: 17 Pulse Ox (%): 94 - Studies Laboratory Last Values WBC 4.7 K/uL (4.3-10.9) 03/09/22 06:19 RBC 2.98 M/uL (3.86-4.86) L 03/09/22 06:19 Hgb 6.4 g/dL (12.0-15.0) L* 03/09/22 06:19 Hct 20.5 % (36.0-45.0) L* 03/09/22 06:19 MCV 68.7 fL (80-100) L D 03/09/22 06:19 MCH 21.3 pg (27.0-35.0) L 03/09/22 06:19 MCHC 31.0 g/dL (32.0-36.0) L 03/09/22 06:19 RDW 20.5 % (12.1-15.2) H 03/09/22 06:19 Plt Count 242 K/uL (152-406) 03/09/22 06:19 MPV 7.8 fL (7.6-11.3) 03/09/22 06:19 Neutrophils % 91.9 % (41.7-73.7) H 03/09/22 06:19 Lymphocytes % 3.4 % (15.3-44.8) L 03/09/22 06:19 Monocytes % 3.6 % (3.3-12.3) 03/09/22 06:19 Eosinophils % 0.2 % (0-4.4) 03/09/22 06:19 Basophils % 0.9 % (0-1.3) 03/09/22 06:19 Absolute Neutrophils 4.4 K/uL (1.8-8.0) 03/09/22 06:19 Absolute Lymphocytes 0.2 K/uL (0.7-4.9) L 03/09/22 06:19 Absolute Monocytes 0.2 K/uL (0.1-1.3) 03/09/22 06:19 Absolute Eosinophils 0.0 K/uL (0-0.5) 03/09/22 06:19 Absolute Basophils 0.0 K/uL (0-0.5) 03/09/22 06:19 Platelet Estimate Adeq 03/09/22 06:19 Hypochromasia 1+ 03/09/22 06:19 Poikilocytosis 2+ 03/09/22 06:19 Anisocytosis 2+ 03/09/22 06:19 Microcytosis 2+ 03/09/22 06:19 Macrocytosis Slight 03/09/22 06:19 Tear Drop Cells 2+ 03/09/22 06:19 Ovalocytes 1+ 03/09/22 06:19 Schistocytes 1+ 03/09/22 06:19 Morphology Comment Noted (NOT SEEN) 03/09/22 06:19 pH 7.22 (7.35-7.45) L 03/09/22 09:40 pCO2 25.3 mmHG (35-45) L 03/09/22 09:40 pO2 99.9 mmHG (75-100) 03/09/22 09:40 HCO3 9.9 mmol/L (22-28) L 03/09/22 09:40 Base Excess -16.5 mmol/L 03/09/22 09:40 Oxyhemoglobin 94.2 % (94-97) 03/09/22 09:40 ABG O2 Sat (Measured) 96.8 % (92-98.5) 03/09/22 09:40 ABG Carboxyhemoglobin 1.1 % (0-1.5) 03/09/22 09:40 ABG Methemoglobin 1.6 % (0-1.5) H 03/09/22 09:40 Other Total Hgb 6.3 g/dl (12-18) L 03/09/22 09:40 Inspired O2 21.0 % 03/09/22 09:40 Sodium 138 mmol/L (136-145) 03/09/22 06:19 Potassium 4.5 mmol/L (3.5-5.1) 03/09/22 06:19 Chloride 111 mmol/L (98-107) H 03/09/22 06:19 Carbon Dioxide 11 mmol/L (21-32) L* 03/09/22 06:19 Anion Gap 20.5 mEq/L (5.0-15.0) H 03/09/22 06:19 BUN 79 mg/dL (7-18) H 03/09/22 06:19 Creatinine 6.88 mg/dL (0.55-1.3) H* 03/09/22 06:19 Est GFR (CKD-EPI) 8 ml/min (=/>90) L 03/09/22 06:19 Glucose 121 mg/dL (74-106) H 03/09/22 06:19 Calcium 8.4 mg/dL (8.5-10.1) L 03/09/22 06:19 Total Bilirubin 0.1 mg/dL (0.2-1.0) L 03/09/22 06:19 AST 6 U/L (15-37) L 03/09/22 06:19 ALT 21 U/L (12-78) 03/09/22 06:19 Alkaline Phosphatase 57 U/L (45-117) 03/09/22 06:19 Serum Total Protein 6.1 g/dL (6.4-8.2) L 03/09/22 06:19 Albumin 2.6 g/dL (3.4-5.0) L 03/09/22 06:19 Globulin 3.5 g/dL (2.3-3.5) 03/09/22 06:19 Albumin/Globulin Ratio 0.7 (1.1-1.8) L 03/09/22 06:19 Lipase 129 U/L (73-393) 03/09/22 06:19 Urine pH 5.5 (5.0-7.0) 03/09/22 06:39 Ur Specific [place] 1.025 (1.005-1.030) 03/09/22 06:39 Glucose (UA)(Auto) Negative (Negative) 03/09/22 06:39 Urine Ketones Negative (Negative) 03/09/22 06:39 Urine Blood Trace-lysed (Negative) H 03/09/22 06:39 Urine Nitrite Negative (Negative) 03/09/22 06:39 Ur Leukocyte Esterase Negative (Negative) 03/09/22 06:39 Urine RBC <5 /HPF (None Seen) 03/09/22 06:47 Urine WBC <5 /HPF (<5) 03/09/22 06:47 Ur Squamous Epith Cells <5 /HPF (None Seen) 03/09/22 06:47 Amorphous Crystals 3+ /HPF (None Seen) H 03/09/22 06:47 Urine Bacteria 20-50 /HPF (<20) H 03/09/22 06:47 Hyaline Casts 0-5 /LPF (None Seen) 03/09/22 06:47 Urine Total Protein 2+ (Negative) H 03/09/22 06:39 Ur Specific [place] (HCG) 1.025 (1.005-1.030) 03/09/22 06:42 Urine Test Neg (NEG) 03/09/22 06:42 SARS-CoV-2 Rap RNA(RT-PCR) Negative (NEGATIVE) 03/09/22 09:58 Smear Scan Ok (OK) 03/09/22 06:19 ABO/Rh O POSITIVE 03/09/22 07:41 Solid Phase Ab Screen Negative 03/09/22 07:41 Crossmatch See Detail 03/09/22 07:41 Microbiology Data (last 24 hrs): 03/09/22 06:47 Clean Catch Urine [place] Count - Final No growth. 03/09/22 06:47 Clean Catch Urine - Final No growth. Assessment And Plan - Plan Physical exam: General: Oriented x3, Moderate distress HEENT: Atraumatic Neck: Supple Respiratory: Clear to auscultation bilaterally, Normal air movement Cardiovascular: No edema, Normal pulses, Regular rate/rhythm Capillary refill: <2 Seconds Gastrointestinal: Other (Right upper quadrant tenderness) Musculoskeletal: No clubbing, No swelling, No contractures, No erythema Conclusions/Impression: Antibiotics Zosyn: 03/09current Assessment/plan Gram-negative bacteremia secondary to micro abdominal perforation -Blood cultures grew E. coli, pansensitive. -Diet advanced to clear liquids on 03/11 -Origin of intestinal perforation unclear, possible side effect of CellCept CellCept being held due to active infection -Patient currently on high-dose Solu-Medrol 40 mg every 8 hours HERMILA secondary to lupus nephritis -Creatinine improving, dialysis catheter and for session of dialysis on 03/11 Metabolic acidosis Resolved Anemia Status post 3 units of packed red blood cells. Improving. Plan of care discussed with Dr. Villegas Thank you for consultation
[2022-03-12 11:31] LABS: C.diff Antigen/Toxin Ag neg : Tox neg (NEG : NEG)
--- OUTSIDE RECORDS SUMMARY | 2022-03-12 11:40 | XMS REPORT | Continuity of Care Document ---
:1990 Author Organization [facility] t Address [address] [place] [address] Care Team Providers Name Role Phone Rubia [...] Date Expiration Date S chelsea BC 2 [id number] 2021 00:00:00 [facility] [id number] 2014 00:00:00 Problems Condition Condition Condition Status Onset Resolution Last Treating Co mments Source Name Details Category Date Date Treatment Clinician Date Lupus Lupus Disease Active [facility] of [facility] Allergies, Adverse Reactions, Alerts Allergy [...] Tobacco use and 2017-03-12 2017-03-12 Never used [facility] exposure 00:00:00 00:00:00 Medical Branch Sex Assigned At [birth year] [facility] 00:00:00 00:00:00 Medical Branch Smoking Status Start Date Stop Date Source Never smoker [facility] Medical Branch Medications Ordered Filled Start Stop Current Ordering Indication Dosage Frequency Signature Comments Components Source Medication Medication Date Date Medication? Clinician (SIG) Name Name predniSONE 2020-0 Yes 5mg Take 5 mg Un yasmani 5 mg tablet 2-24 by mouth ity of 18:51: daily. [address] Branch mycophenola 2020-0 Yes 500mg Take 500 U nivers te mofetil 2-24 mg by ity of (CELLCEPT[place] 18[place] 16 (two) Medical tablet times Branch daily. carvedilol 2020-0 Yes 12.5mg Take 12.5 Univers 12.5 mg 2-24 mg by ity of tablet 18:51: mouth 2 [place] [address] (two) Medical times Branch daily with meals. predniSONE 2020-0 Yes 5mg Take 5 mg Un yasmani 5 mg tablet 2-24 by mouth ity of 18:51: daily. [address] Branch mycophenola 2020-0 Yes 500mg Take 500 U nivers te mofetil 2-24 mg by ity of (CELLCEPT) 18:51: [place] 500 mg 16 (two) Medical tablet times Branch daily. carvedilol 2020-0 Yes 12.5mg Take 12.5 Univers 12.5 mg 2-24 mg by ity of tablet 18:51: mouth 2 [place] [address] (two) Medical times Branch daily with meals. predniSONE 2020-0 Yes 5mg Take 5 mg Un yasmani 5 mg tablet 2-24 by mouth ity of 18:51: daily. [place] [address] Medical Branch mycophenola 2020-0 Yes 500mg Take [...] 2-24 by mouth ity of 18:51: daily. [place] [address] Medical Branch mycophenola 2020-0 Yes 500mg Take 500 U nivers te mofetil 2-24 mg by ity of (CELLCEPT) 18:51: [place] 500 mg 16 (two) Medical tablet times Branch daily. carvedilol 2020-0 Yes 12.5mg Take 12.5 Univers 12.5 mg 2-24 mg by ity of tablet 18:51: mouth 2 [place] 16 (two) Medical times Branch daily with meals. hydrOXYzine 2020-0 Yes [id number] 25mg Take 1 Univers 25 mg 2-24 tablet by ity of tablet 00:00: mouth [place] 00 every 6 Medical (six) Branch hours as needed for Itching. hydrOXYzine 2020-0 Yes [id number] 25mg Take 1 Univers 25 mg 2-24 tablet by ity of tablet 00:00: mouth [place] 00 every 6 Medical (six) Branch hours as needed for Itching. hydrOXYzine 2020-0 Yes [id number] 25mg Take 1 Univers 25 mg 2-24 tablet by ity of tablet 00:00: mouth [place] 00 every 6 Medical (six) Branch hours as needed for Itching. hydrOXYzine 2020-0 Yes [id number] 25mg Take 1 Univers 25 mg 2-24 [...] Procedure Date / Time Performed Performing Clinician [facility] e PHYSICIAN ORDERS 2021-11-14 05:01:00 Doctor Unassigned, No Unive rsity of [facility] PHYSICIAN ORDERS 2021-09-02 06:01:00 Doctor Unassigned, No Un[facility] of [facility] Encounters Start End Encounter Admission Attending Care Care Encounter Source Date/Time Date/Time Type Type Clinicians Facility Department ID 2022-01-12 2022-01-12 Outpatient SOPHIE BLANCO [id number] Sophie 15:45:00 15:45:00 TOBI dinh 2021-11-14 2021-11-14 Seed Sorter Harjit, Diya Lab Main [facility] 1.2.8 40.114 [id number] Univers 16:15:00 16:30:00 Visit Felicita Dubois [id number] ity of [facility] [id number] Luis M robertson PROFESSIO [phone] Ma dical [address] 2021-11-14 2021-11-14 Outpatient Lia DUBOIS [facility] [id number] Univers 16:15:00 16:15:[id number] [facility] 2021-11-14 2021-11-14 Outpatient Lia DUBOIS [facility] [id number] Univers 16:15:00 16:15:00 FELICITA itmilena [facility] 2021-11-14 2021-11-14 Orders Doctor KEY [id number] Univers 00:00:00 00:00:00 Only UnassZAN [place] [id number] ity of [place] [facility] [id number] [place] [phone] [facility] [address] [employer] 2021-09-02 2021-09-02 Seed Sorter Harjit, Diya Lab Main [facility] 1.2.8 [id number] [id number] Univers 16:15:00 16:30:00 Visit Grace Joseph [id number] [place] PROFESS[place] [phone] Ma dical [facility] 353 [facility] 2021-09-02 2021-09-02 Outpatient R [facility] [id number] Univers 16:15:00 16:15:00 [id number] ity [facility] 2021-09-02 2021-09-02 Outpatient R OPAL [facility] [id number] Univers 16:15:00 16:15:00 GRACE [facility] 2021-09-02 2021-09-02 Orders Doctor SHAHID [id number] Univers 00:00:00 00:00:00 Only Unassigned, ZAN [id number] ity of [place] [facility] [id number] [place] as [phone] [address] 2021-04-04 2021-04-11 Inpatient JACK ROLLE [facility] [id number] [facility] 23:38:00 16:51:00 2021-04-03 2021-04-04 Inpatient Davey FELICIANO [facility] MED [id number] [facility] 21:43:00 23:00:00 HONORIO 2021-03-19 2021-03-19 Outpatient R [facility] [id number] Univers 17:15:00 17:15:00 [id number] ity [facility] 2021-03-19 2021-03-19 Outpatient R OPAL [facility] [id number] Univers 17:15:00 17:15:00 GRACE ity [facility] 2021-01-22 2021-01-22 Outpatient R [facility] [id number] Univers 12:45:00 12:45:00 [id number] ity [facility] 2021-01-22 2021-01-22 Outpatient R OPAL [facility] [id number] Univers 12:45:00 12:45:00 GRACE milena [facility] 2021-01-21 2021-01-21 Outpatient R OPAL [facility] [id number] Univers 11:30:00 11:30:00 GRACE masters [facility] 2021-01-21 2021-01-21 Outpatient [facility] [id number] Univers 11:30:00 11:30:00 [id number] [facility] 2020-02-07 2020-02-07 Seed Sorter Harjit [facility] 1.2.840.114 [id number] 17:26:43 17:41:43 Visit Lab Main [place] [id number] [place] 4.2.7.2.686 Professirving [phone] nal [address] [place] [address] 2020-02-07 2020-02-07 Outpatient R [facility] [id number] [facility] 17:00:00 17:00:00 [id number] [facility] 2020-02-07 2020-02-07 Outpatient R OPAL [facility] [id number] Univers 17:00:00 17:00:00 [facility] 2020-02-07 2020-02-07 Orders Doctor SHAHID 1.2.840.114 [id number] 00:00:00 00:00:00 Only Unassigned, ZAN 350.1.13.10 [place] [facility] 4.2.7.2.686 [id number] 2019-11-02 2019-11-02 Seed Sorter Harjit [facility] [id number] 10:22:24 10:37:24 Visit Lab Main [place] [id number] [place] 4.2.7.2.686 Professio [phone] nal [address] [place] [address] 2019-11-02 2019-11-02 Outpatient R [facility] [id number] Univers 10:15:00 10:15:00 [id number] [facility] 2019-11-02 2019-11-02 Outpatient R OPAL [facility] [id number] Univers 10:15:00 10:15:00 GRACE [facility] 2019-11-02 2019-11-02 Orders Doctor SHAHID [id number] [id number] 00:00:00 00:00:00 Only Unassigned, ZAN [id number] [place] [facility] 4.2.7.2.686 [id number] 2019-10-16 2019-10-16 Outpatient R [facility] [id number] Univers 18:30:00 18:30:00 [id number] [facility] 2019-10-16 2019-10-16 Outpatient R UNKNOWN, [facility] [id number] Univers 18:30:00 18:30:00 ATTENDING [facility] Results Test Description Test Time Test Comments Results Result Comments Source HEPATITIS B SURFACE ANTIBODY 2022-03-10 14:48:11 Test Item Value Reference Range Interpretation Comme nts HEPATITIS B SURFACE ANTIBODY (BEAKER) (test code = 647) < mIU/mL <8.0 Middle Card Tender ID - DBHEPATITIS B SURFACE [id number] 14:23:40 Test Item Value Reference Range Interpretation Comments HEPATITIS B SURFACE ANTIGEN (2) Nonreactive Nonreactive (BEAKER) (test code = 2585) Specimen is considered negative for HBsAg.HEPATITIS B CORE ANTIBODY, TOTAL 2022-03-10 14:23:40 Test Item Value Reference Range Interpretation Comments HEPATITIS B CORE TOTAL ANTIBODY Nonreactive Nonreactive (BEAKER) (test code = 497) Middle Card Tender ID - DB
--- NOTE | 2022-03-12 14:51 | P.PN ---
Date of Service: 03/12/22 S: Patient has no specific complaints today, says her abdomen feels some better. Has occasional bowel sounds. Asking to have some pudding. O: Vital signs are stable, tolerated dialysis, metabolic issues resolving. Abdomen is soft, minimal tenderness A: Surgically stable P: Patient may have a soft mechanical diet, advance as tolerated. It is not likely she will need some surgical intervention. Should she require a more permanent dialysis solution, recommend consult with Dr. Caputo or Adelso for a tunneled catheter. Thank you
[2022-03-12] MEDS: AMLODIPINE 5 MG TAB PO SCH (16:23)
[2022-03-13] MEDS: METHYLPREDNISOLONE 40 MG INJ IV SCH ×3 (01:02→16:35)
--- NOTE | 2022-03-13 06:20 | P.PN ---
Date of Service: 03/13/22 Subjective: increased abdominal discomfort feels bloated +flatus, no BM ROS: 10 point ROS as noted above, otherwise negative Physical exam GEN: Alert, oriented, NAD HEENT: Normal conjunctiva, sclera anicteric CV: Regular rate and rhythm, no edema Pulm: Non-labored respirations on room air ABD: Soft, mild tenderness in epigastrium / periumbilical, +bowel sounds Neuro: Normal speech, normal affect Problem List Jejunitis with microperforation HERMILA on CKD 4 Metabolic acidosis secondary to HERMILA anemia in chronic kidney disease h/o lupus nephritis SLE hyperphosphatemia jejunitis possibly secondary to mycophenolate therapy patient was improving, diet slowly advanced felt more bloated morning of . make NPO, obtain CT abd/pelvis eval for further perforation / free air renal function worsened, patient started dialysis ., tolerated well continue HD per nephrology kincaid placed evening of 03/09, monitor UOP s/p 3uPRBC. no bleeding solumed 40q8h started on 03/09 by nephro, will discuss further, given ongoing imp rovement, for possible titrating down increased WBC likely from steroids vs worsening intraabdominal pathology monitor H&H, keep Hgb > 7 Blood cx: pansensitive e.coli, urine cx: negative ID consulted zosyn changed to cefepime repeat blood cultures; tunneled cath once negative Code: full Dispo: home, ~4 days monitoring renal function / if HD may be temporary to get set up for outpatient HD will need tunneled cath Time Spent Managing Pts Care (In Minutes): 35
[2022-03-13 06:52] LABS: Absolute Lymphocytes (CBC) 0.1 K/uL (0.7-4.9); Hematocrit 25.2 % (36.0-45.0); Lymphocytes % 0.8 % (15.3-44.8); MPV 8.7 fL (7.6-11.3)
[2022-03-13 07:02] LABS: Albumin 2.1 g/dL (3.4-5.0); Bilirubin Total 0.4 mg/dL (0.2-1.0); Potassium 4.3 mmol/L (3.5-5.1); Protein, Total 5.6 g/dL (6.4-8.2)
[2022-03-13 08:26] LABS: Platelet Estimate DECR
[2022-03-13 08:27] LABS: Anisocytosis 2+; Blood Morphology Comment NOTED (NOT SEEN); Hypochromasia 2+; Macrocytosis 2+; Platelets, Giant 1+; Poikilocytosis 2+
[2022-03-13] MEDS: PIPER TAZO 2.25 GM in NA CHLORIDE 0.9% 50 ML IV SCH (08:27)
[2022-03-13 08:28] LABS: Ovalocytes 1+; Spherocyte FEW; Teardrop Cell 2+
[2022-03-13] MEDS: PANTOPRAZOLE 40 MG INJ IVP SCH ×2 (08:28→22:04)
[2022-03-13] MEDS: AMLODIPINE 5 MG TAB PO SCH (08:28)
[2022-03-13] MEDS ORDERED: ACETAMINOPHEN 500 MG TAB PO PRN (09:10)
[2022-03-13] MEDS: DOCUSATE NA 100 MG CAP PO SCH ×2 (09:30→22:04)
--- NOTE | 2022-03-13 10:26 | P.PN ---
Date of Service: 03/13/22 Nephrology (S) Pt has been transferred out of ICU, c/o some abd distention and gas pains this AM, no BM yet, appetite low. Vitals, medications, blood work and imaging reviewed in the chart. General: NAD, non tachypnec HEENT: Atraumatic, NC present Neck: Supple, Rt EJ catheter, Lt SC dialysis catheter Respiratory: Normal respiratory effort, b/l air entry Cardiovascular: Regular rate/rhythm, no gallops Gastrointestinal: Reduced BS, soft, ND, NT to light palpation Musculoskeletal: No clubbing, No contractures Ext: No sig LE edema Integumentary: No rashes, No cyanosis Neurological: Normal speech, awake, alert, non encephalopathic Conclusions/Impression: Stage III ARF with presenting Cr level > 4 mg/dl in the setting of hypotension, anemia, sepsis, other likely leading to some ATN CKD IV underlying with proteinuria due to Lupus nephritis -Metab profile (azotemia, hypocalcemia, hyperphosphatemia) better post HD. Making some urine but but Cr level has risen by > 1 mg/dl off HD. Will plan to repeat HD today. Will plan for OP HD in ARF status but will wait to convert temp dialysis catheter to TDC once leukocytosis better and repeat BCx neg. Metab Acidosis in the setting of renal failure, other -Bicarb deficit resolved Hypotension, other. Underlying chronic HTN -Resolved, stopped maintenance IVF. Did restart Amlodipine with holding parameter Acute on chronic anemia related to chronic illnesses including lupus, CKD, other -Has received several units of PRBC, no reports of melena, MCV is low, likely iron deficient but with recent transfusions, did hold off on checking iron studies and plan for IV iron series if she is not bacteremic. SLE with lupus nephritis -On PO Pred at home with Cellcept, holding latter, switched to IV Hydrocortisone currently for the former. Studies pending to see how active lupus is currently. Martin Joseph MD, [facility]ITAL[facility]
--- NOTE | 2022-03-13 12:26 | P.PN ---
Subjective Date of Service: 03/13/22 Chief Complaint: Abdominal pain Patient seen and examined at bedside, C. difficile negative. Patient still having diffuse abdominal tenderness, repeat CT imaging without contrast pending secondary to high creatinine. Plan for second dialysis session today. WBC increasing. Review of Systems 10-point ROS is otherwise unremarkable Physical Examination - Vital Signs Temperature: 98.0 F Blood Pressure: 139/90 Pulse: 68 Respirations: 16 Pulse Ox (%): 96 - Studies Microbiology Data (last 24 hrs): Microbiology 03/09/22 06:47 Clean Catch Urine [place] Count - Final No growth. 03/09/22 06:47 Clean Catch Urine - Final No growth. Assessment And Plan - Plan Physical exam: General: Oriented x3, Moderate distress HEENT: Atraumatic Neck: Supple Respiratory: Clear to auscultation bilaterally, Normal air movement Cardiovascular: No edema, Normal pulses, Regular rate/rhythm Capillary refill: <2 Seconds Gastrointestinal: Diffuse abdominal tenderness. Musculoskeletal: No clubbing, No swelling, No contractures, No erythema Conclusions/Impression: Antibiotics Zosyn: 03/09current Assessment/plan Gram-negative bacteremia secondary to micro abdominal perforation -Blood cultures grew E. coli, pansensitive. -Diet advanced to clear liquids on 03/11. Patient now regular diet however states she can only tolerate liquids secondary to do diffuse abdominal tenderness. -Origin of intestinal perforation unclear, possible side effect of CellCept CellCept being held due to active infection -Patient currently on high-dose Solu-Medrol 40 mg every 8 hours -Repeat CT imaging pending. HERMILA secondary to lupus nephritis -Creatinine improving, dialysis catheter and for session of dialysis on 03/11. Plan for second session on 03/13 Metabolic acidosis Resolved Anemia Status post 3 units of packed red blood cells. Improving. Plan of care discussed with Dr. Villegas Thank you for consultation
--- NOTE | 2022-03-13 14:59 | RAD REPORT ---
EXAM DESCRIPTION: CT - Abdomen Pelvis Wo Contrast - 03/13/2022 2:38 pm CLINICAL HISTORY: Abdominal pain. epigastric pain, f/u jejunitis COMPARISON: Abdomen Pelvis Wo Contrast dated 03/09/2022 TECHNIQUE: CT imaging of the abdomen and pelvis was performed without contrast. Solid organ, bowel a nd vascular assessment is limited due to lack of IV and oral contrast. All CT scans are performed using dose optimization technique as appropriate and may include automated exposure control or mA/KV adjustment according to patient size. FINDINGS: Mild atelectasis in both lung bases. Since 03/09/2022 study, there has been significant progression in the amount of free air present. The re is a several loculated air collections present left upper quadrant adjacent to jejunum as well as the colon splenic flexure. There is moderate circumferential thickening seen of the ascending colon. The liver, spleen, pancreas, adrenal glands and kidneys are within normal limits for a limited non-co ntrast examination.Cholelithiasis. No bowel obstruction or abscess suspected. The appendix is normal. The osseous structures are within normal limits. IMPRESSION: There has been significant progression in the amount of free intraperitoneal air since t he prior study. This is compatible with viscus perforation. Source of the free air is somewhat unclea r but may be left upper quadrant portions of the colon or jejunum. Cholelithiasis. Findings were discussed with Dr. Pollack at 3 p.m. 03/13/2022 A limited non-contrast examination was performed as detailed.
[2022-03-13] MEDS: CEFEPIME 1 GM in NA CHLORIDE 0.9% 100 ML IV SCH (16:35)
[2022-03-13] MEDS ORDERED: CEFEPIME 1 GM in NA CHLORIDE 0.9% 100 ML IV SCH (17:00)
[2022-03-13] MEDS ORDERED: DIAZEPAM 5 MG TABLET PO PRN (17:43)
--- NOTE | 2022-03-13 18:13 | P.PN ---
Date of Service: 03/13/22 S: Patient been having some abdominal pain today. Describes it as being in the upper portion of her abdomen, cramping in nature. It is not constant, but comes and goes in waves. O: Vital signs are stable, white cell count slightly elevated today. Abdomen is soft, minimal tenderness in the upper abdomen. Patient also has hiccups. Does not demonstrate any peritoneal signs at all. A CT scan was ordered today in view of her change in pain. Shows some increase in air, but no extravasation of contrast, no evidence of any abscess formation. A: Surgically this patient looks well, her vital signs remained stable. She does not have true peritoneal signs. The question of jejunal perforation the other day has now changed to having some air in the intra-abdominal cavity. Apparently the jejunal area looks much improved. I do not see an obvious source of his perforation, she does have some diverticuli of her left colon but there is no inflammatory process in that part. The etiology of the area is unclear, but clinically the patient is much improved since her initial admission. P: We will once again make the patient n.p.o., continue with her pain medication, tomorrow we will have physical therapy intervene and see if we can ambulate the patient a little bit more, and incentive spirometer has been ordered for her, and we will follow her along clinically. She is on antibiotics.
[2022-03-13] MEDS ORDERED: AMLODIPINE 5 MG TAB PO SCH (21:00)
[2022-03-13] MEDS: ENSURE CLEAR 200 ML CAN PO SCH (22:02)
[2022-03-13] MEDS: HYDROMORPHONE HCL 1 MG/ML INJ IV PRN (22:05)
[2022-03-14] MEDS: METHYLPREDNISOLONE 40 MG INJ IV SCH ×3 (02:08→17:00)
[2022-03-14] MEDS: HYDROMORPHONE HCL 1 MG/ML INJ IV PRN ×2 (04:56→20:15)
[2022-03-14 06:18] LABS: Absolute Lymphocytes (CBC) 0.1 K/uL (0.7-4.9); Hematocrit 31.5 % (36.0-45.0); Lymphocytes % 1.8 % (15.3-44.8); MCV 75.6 fL (80-100); MPV 8.1 fL (7.6-11.3); RBC Red Blood Cell Count 4.17 M/uL (3.86-4.86)
--- NOTE | 2022-03-14 06:32 | P.PN ---
Date of Service: 03/14/22 Subjective: worsening abdominal earlier this morning and now pain medication not helping as much feels this is worst day since she's been at the hospital -n/v, +headache, +bloated feeling, +flatus ROS: 10 point ROS as noted above, otherwise negative Physical exam GEN: moderate distress HEENT: Normal conjunctiva, sclera anicteric CV: Regular rate and rhythm, trace pedal edema Pulm: Non-labored respirations on room air ABD: significant diffuse tenderness to light palpation Neuro: Normal speech, normal affect Problem List Jejunitis with microperforation, worsening free air acute worsening of CKD 4, now on dialysis Metabolic acidosis secondary to HERMILA anemia in chronic kidney disease h/o lupus nephritis SLE hyperphosphatemia jejunitis possibly secondary to mycophenolate therapy patient's mom reports (03/14) patient has been taking excedrin frequently. patient states she takes 1-2 pills most days/week for pain excedrin may have contributed to ulceration and worsening renal function. Possible ulceration causing abd pain over last 3 weeks, no perforated Nephrology initiated IV steroids solumed 40q8h on 03/09, titrate down on 03/14 CT abd/pelvis (03/13): Significantly increased free air Discussed with general surgery, continue with medical management, n.p.o., surgery has for some ice chips/sips of water. No fluid collection, likely to be a microperforation Worsened on morning of 03/14, stat upright abdominal x-ray revealed moderate free air under the diaphragm General surgery contacted again, suspect patient will require surgery today strict NPO renal function worsened, patient started dialysis 7.20, tolerated well continue HD per nephrology kincaid placed evening of 03/09, monitor UOP s/p 3uPRBC. no bleeding monitor H&H, keep Hgb > 7 Blood cx: pansensitive e.coli, urine cx: negative ID consulted zosyn changed to cefepime repeat blood cultures; will need tunneled cath once negative and stable Code: full Dispo: home, ~4-5 days monitoring renal function will need to be set up for outpatient HD will need tunneled cath Time Spent Managing Pts Care (In Minutes): 45
[2022-03-14 06:39] LABS: Albumin 2.2 g/dL (3.4-5.0); Bilirubin Total 0.7 mg/dL (0.2-1.0); Magnesium 2.3 mg/dL (1.8-2.4); Potassium 4.7 mmol/L (3.5-5.1); Protein, Total 5.9 g/dL (6.4-8.2)
[2022-03-14 06:50] LABS: Platelet Estimate ADEQ; White Blood Cell Scan OK (OK)
[2022-03-14 06:51] LABS: Anisocytosis 3+; Blood Morphology Comment NOTED (NOT SEEN); Polychromasia 1+
[2022-03-14] MEDS ORDERED: MORPHINE 4 MG/ML SYR IV ONE (08:02)
[2022-03-14] MEDS: DOCUSATE NA 100 MG CAP PO SCH (08:25)
[2022-03-14] MEDS: PANTOPRAZOLE 40 MG INJ IVP SCH ×2 (08:26→19:49)
[2022-03-14] MEDS: ENSURE CLEAR 200 ML CAN PO SCH (08:26)
[2022-03-14] MEDS: AMLODIPINE 5 MG TAB PO SCH (08:29)
--- NOTE | 2022-03-14 10:01 | RAD REPORT ---
EXAM DESCRIPTION: RAD - Abdomen W Erect - 03/14/2022 9:04 am CLINICAL HISTORY: abdominal pain COMPARISON: Abdomen Pelvis Wo Contrast dated 03/13/2022; Abdomen Pelvis Wo Contrast dated 03/09/20; Chest Single View dated 03/11/2022 FINDINGS/IMPRESSION: Moderate volume of free air remaining underneath the right hemidiaphragm as was identified on yesterday's CT. The bowel gas pattern is nonobstructive. Contrast seen within the asce nding colon. Left subclavian approach dialysis catheter with tip overlying the SVC. Mild atelectasis.
[2022-03-14] MEDS ORDERED: DIAZEPAM 10 MG/2 ML INJ SYRINGE IV ONE (10:50)
--- NOTE | 2022-03-14 11:28 | P.PN ---
Date of Service: 03/14/22 S: Patient's pain changed earlier this morning. Now having severe abdominal pain, located in the upper left quadrant of her abdomen. Describes it as severe. Says it hurts when she coughs or sneezes. Was able to get up and walk earlier today but now she says she is really uncomfortable. O: Vital signs are stable, abdomen shows tenderness with guarding in the upper portion of the abdomen. A abdominal film shows free air under the diaphragm. White cell count 8000, hemoglobin hematocrit stable. A: Patient's clinical picture has changed today. It now appears she is developing peritoneal signs. Her pain is increased. I have discussed with her the findings, and explained to her exploratory laparotomy. The risks of the pro cedure were covered. The possibility of bleeding, infection, injury to bowel and blood vessels were outlined. Injury to surrounding structures including kidneys and spleen were explained. The possible need for further surgeries and procedures was also outlined. She understands and wants us to proceed. P: I will taken the operating room for an exploratory laparotomy. The risks of this procedure have been discussed. I have also discussed this with her mom who had left the room after being concerned that someone had brought her daughter some more Excedrin. She understands, and realizes that she may also go to the ICU postop.
[2022-03-14] MEDS ORDERED: Ringers Lactate 0 ML IV ONE (12:30)
[2022-03-14] MEDS ORDERED: NA CHLORIDE 0.9% 500 ML ONE (12:32)
[2022-03-14] MEDS ORDERED: FENTANYL CITR 100 MCG/2 ML ONE ×2 (12:34→14:08)
[2022-03-14] MEDS ORDERED: LIDOCAINE 2% MPF 5 ML VIAL ONE (12:34)
[2022-03-14] MEDS ORDERED: propofoL 200 MG/20 ML VIAL IV ONE (12:34)
[2022-03-14] MEDS ORDERED: ROCURONIUM 50 MG/5 ML VIAL IV ONE ×3 (12:34→13:36)
[2022-03-14] MEDS ORDERED: NA CHLORIDE 0.9% 1,000 ML ONE (12:45)
[2022-03-14] MEDS ORDERED: HEPARIN 500 UNIT/5 ML SYR IV ONE (13:21)
[2022-03-14] MEDS ORDERED: Phenylephrine HCl 10 MG/ML 1 ML VIAL ONE ×3 (13:48→16:42)
[2022-03-14] MEDS ORDERED: dexAMETHasone 10 MG/ML VIAL ONE (14:01)
[2022-03-14] MEDS: NA CHLORIDE 0.9% 1,000 ML ONE ×2 (14:54→15:00)
[2022-03-14] MEDS ORDERED: GLYCOPYRROLATE 0.2 MG/ML SYR ONE (15:52)
[2022-03-14] MEDS ORDERED: MORPHINE 10 MG/ML VIAL ONE (16:39)
[2022-03-14] MEDS ORDERED: NEOSTIGMINE 1 MG/ML -10 ML VIAL ONE (16:39)
[2022-03-14] MEDS ORDERED: ALBUMIN HUM 5% 250 ML IV ONE ×2 (16:54→17:43)
--- NOTE | 2022-03-14 17:15 | P.OP ---
Preoperative diagnosis: Acute abdomen with perforated viscus Postoperative diagnosis: The same, perforated diverticular disease Primary procedure: Exploratory laparotomy Secondary procedure: Mobilization of the splenic flexure Other procedure(s): Left colectomy, end colostomy with Rangel's pouch Anesthesia: General Estimated blood loss: Less than 40 cc Specimen: Omentum, and left colon Operative Technique: The patient brought to the operating room and placed supine on the table. After the induction of adequate general endotracheal anesthesia, the area of the abdomen was prepped with a chlorhexidine solution, draped in usual aseptic manner. A generous midline incision was made. This was brought down from the skin and subcutaneous tissue. The fascia was opened in the midline. We were able to elevate and enter into the peritoneal cavity just above the umbilicus in an area where the patient had a small umbilical hernia. A finger was used to sw eep the inside of the peritoneal cavity was sure there was no bowel underneath and we were able to open our incision from 4 fingers breath below the xiphisternum to about 4 fingers breath above the pubic symphysis access to the peritoneal cavity having been obtained, the omentum was adherent over the small bowel. On elevating it up out of the true pelvis we could see that there was gross contamination of the pelvis with a feculent odor. Cultures both aerobic and anaerobic were taken of this. The stool itself that was down there was light yellow in color and watery. This was aspirated from the peritoneal cavity. Attention was turned towards the small bowel. The area in question that was concern for perforation initially at the jejunum just at the junction of the ligament of Treitz was gently dissected. There were some soft adhesions in this area and not open them we did yet some purulent material. However on inspection of the judgment of just at the ligament of Treitz, there was no gross pathology noted. The small bowel was now run with down towards the right lower quadrant. There were numerous intra loop adhesions and fluid was seen in these areas. These were taken down gently with finger fracture and came apart quite easily. The right colon was now identified. It was identified up to the hepatic flexure. The transverse colon was now seen swinging over to the splenic flexure. Having mobilized the omentum, we were now able to flip the transverse colon upward. On inspection of the area of the splenic flexure we saw that there was considerable mount of streaking and some fibrinous exudate on the descending colon in that part. At this point the white line of Toldt was opened on the right side of the abdomen. We were now able to gently dissect the colon off of the Gerota's fascia and sweep it medially. Some short gastrics were taken down using the LigaSure as well as some let you know colic vessels as well. The colon was now swelling down into her wound. On careful inspection of this we placed a clamp across the bowel and by applying pressure we saw a small hole that measured probably 4 mm in size it was the source of our contamination. It appears to be a diverticuli that had blown out and was the cause and source of the bleeding. The most likely had sealed and then after a few days on sealed itself and cause a larger leak dissecting around. At this point the transverse colon was divided using the linear stapler. The mesentery of the colon was now utilized to allow us to take down the splenic flexure. We divided the descending colon just at the level of the junction between the descending colon and the sigmoid. The bowel having been resected, it was now sent for histopathology. Attention was turned back towards our transverse colon. We were able to mobilize it in such a way that we could bring it up to the anterior abdominal wall easily on the left side and forming an colostomy. The omentum that had been stuck down into the true pelvis showed a gross contamination with a lot of liquid stool like material inside of it. We resected this and sent it off for histopathology. At this point the abdomen was once again inspected to ensure adequate hemostasis. Copious amounts of saline solution over 10 L were used to rinse out the peritoneal cavity itself. A Brian-Mcgrath drain was placed down into the true pelvis and brought out through a separate stab wound incision on the right side of the abdomen. It was interesting to note the patient has quite extensive fibroids in her uterus. The intestines were now returned to their normal anatomical position. Attention was turned towards the anterior abdominal wall. A circular skin plug was removed from the left side of the abdomen where we had marked her preoperatively for a colostomy. The fascia was opened at the base of this in a cruciate manner. This allowed us to pass to fingers through this area. The transverse colon was now brought out and ensuring no twist up to the anterior abdominal wall. Attention was turned towards our midline incision. It was now closed with a running stitch of oh looped nylon. One suture was started from the top, another from the bottom. These were tied at the umbilicus. At this point the subcutaneous tissue was inspected to ensure adequate hemostasis. [place] were then used to approximate the skin. We were able to place iodoform gauze between her skin donnie and a sterile dressing was applied. Attention was turned towards her colostomy. It was formed by placing a pursestring of nylon around the skin edges. A #28 anvil was introduced into the distal portion of the colon. This pursestring was then stuck down. The pursestring around the skin was pulled tight up around the anvil. The stapler was was then used to fire and create an end colostomy. An appliance was placed on the outside of the the colostomy. At the end of the procedure the patient was in a stable condition when sent to the Room. She will most likely be transferred to the ICU postoperatively. However the patient is in a stable condition instrument count was correct. Complications: None Drain(s): ANDREW drain Transferred to: Recovery Room Condition: Good
[2022-03-14 17:57] LABS: Hematocrit 32.1 % (36.0-45.0)
[2022-03-14] MEDS: CEFEPIME 1 GM in NA CHLORIDE 0.9% 100 ML IV SCH (18:00)
[2022-03-14] MEDS ORDERED: HYDROMORPHONE HCL 1 MG/ML INJ ONE (18:02)
--- NOTE | 2022-03-14 18:37 | RAD REPORT ---
EXAM DESCRIPTION: RAD - Chest Single View - 03/14/2022 6:30 pm CLINICAL HISTORY: S/P CENTRAL LINE PLACEMENT COMPARISON: Chest Single View dated 03/11/2022; Chest Single View dated 02/11/2022; Chest Single View dated 11/03/2021; Chest Single View dated 11/01/2021; Abdomen Pelvis Wo Contrast dated 03/13/2022 FINDINGS: Lines: Right IJ approach central line with tip overlying the right atrium. Left subclavian approach dialysis catheter with tip overlying the SVC. Lungs: Atelectasis in the lung bases. Pleural: No significant pleural effusions or pneumothorax. Cardiac: Cardiomegaly. Bones: No acute fractures. Other: IMPRESSION: Interval placement of a right IJ approach central venous line with tip overlying the rig ht atrium in satisfactory position. No pneumothorax.
[2022-03-14] MEDS ORDERED: NA CHLORIDE 0.9% 500 ML IV ONE (20:48)
[2022-03-14] MEDS: NOREPINEPHRINE 4 MG in D5W 250 ML IV SCH (22:54)
[2022-03-15] MEDS: METHYLPREDNISOLONE 40 MG INJ IV SCH ×3 (00:12→17:24)
[2022-03-15] MEDS: HYDROMORPHONE HCL 1 MG/ML INJ IV PRN ×5 (00:13→17:24)
[2022-03-15 05:02] LABS: Absolute Lymphocytes (CBC) 0.1 K/uL (0.7-4.9); Hematocrit 28.9 % (36.0-45.0); Lymphocytes % 1.9 % (15.3-44.8); MCV 76.7 fL (80-100); MPV 8.7 fL (7.6-11.3); RBC Red Blood Cell Count 3.76 M/uL (3.86-4.86)
[2022-03-15 05:36] LABS: Albumin 1.8 g/dL (3.4-5.0); Bilirubin Total 0.8 mg/dL (0.2-1.0); Potassium 5.5 mmol/L (3.5-5.1); Protein, Total 4.7 g/dL (6.4-8.2)
--- NOTE | 2022-03-15 06:03 | P.PN ---
Date of Service: 03/15/22 Subjective: hypotensive post-op, given albumin and small bolus with minimal improvement MAPS < 65 after pain medication levophed started overnight patient reports soreness, thirsty ROS: 10 point ROS as noted above, otherwise negative Physical exam GEN: AOx3, uncomfortable HEENT: Normal conjunctiva, sclera anicteric CV: Regular rate and rhythm, trace pedal edema Pulm: Non-labored respirations on 2L NC ABD: surgical dressing in place, ostomy with no stool, minimal air Neuro: Normal speech, normal affect Problem List perforated diverticula, s/o colectomy and ostomy acute worsening of CKD 4, now on dialysis Metabolic acidosis secondary to HERMILA anemia in chronic kidney disease h/o lupus nephritis SLE hyperphosphatemia initially concerned for jejunitis possibly secondary to mycophenolate therapy patient's mom reports (03/14) patient has been taking excedrin frequently. patient states she takes 1-2 pills most days/week for pain patient had initial improvement, and diet was slowly advanced she then began to have worsening abdominal pain and bloating, repeat CT (03/13): significantly increased free air managed medically per general surgery recommendations Patient worsened on 03/14 and required ex-lap, colectomy, ostomy 03/15 - continued postoperatively with low BP, pain meds dropped MAP <60, patient started on levophed start NS @ 50cc/hr, patient does not appear hypervolemic, monitor closely; wean levophed as tolerated NPO, NGT in place Nephrology initiated IV steroids solumed 40q8h on 03/09, titrate down once off levophed renal function worsened, patient started dialysis 7.20, tolerated well continue HD per nephrology kincaid placed evening of 03/09, patient had some mild retention, continue for strict i/o's s/p 3uPRBC. no bleeding monitor H&H, keep Hgb > 7 Blood cx: pansensitive e.coli, urine cx: negative abd cultures obtained in OR pending ID consulted zosyn changed to cefepime repeat blood cultures; will need tunneled cath once negative and stable Code: full Dispo: home, ~4-5 days monitoring renal function will need to be set up for outpatient HD will need tunneled cath Time Spent Managing Pts Care (In Minutes): 70 Critical care time: 35 minutes
[2022-03-15] MEDS: PANTOPRAZOLE 40 MG INJ IVP SCH ×2 (07:28→22:00)
[2022-03-15] MEDS: CEFEPIME 1 GM in NA CHLORIDE 0.9% 100 ML IV SCH (07:28)
[2022-03-15] MEDS: NA CHLORIDE 0.9% 1,000 ML IV SCH (08:58)
[2022-03-15] MEDS ORDERED: PHENOL 1.4% ORAL SPRAY 180ML MM PRN (09:40)
[2022-03-15] MEDS: NOREPINEPHRINE 4 MG in D5W 250 ML IV SCH (15:15)
--- NOTE | 2022-03-15 19:31 | P.PN ---
Date of Service: 03/15/22 S: Patient states she is feeling much better today, severe pain she had yesterday preoperatively is gone. Now mainly thirsty. Asked for reduction in her pain medicine. O: Vital signs are stable. Incision looks clean. Colostomy is viable. Minimal out through ANDREW drain. A: Surgically stable P: Patient is doing well status post exploratory laparotomy. Blood pressure issues have been dealt with. We will DC the NG tube, and start on liquids. I explained to her that she will get up out of bed tomorrow and ambulate. Discussed current status with patient and her mom via phone. They are both happy. Patient, remarkably, even said thank you.
[2022-03-15] MEDS ORDERED: DIAZEPAM 5 MG TABLET PO ONE (21:00)
[2022-03-16] MEDS: METHYLPREDNISOLONE 40 MG INJ IV SCH ×3 (00:22→17:42)
[2022-03-16] MEDS ORDERED: AMIODARONE HCL 150 MG in D5W 100 ML IV STA (00:29)
[2022-03-16] MEDS ORDERED: AMIODARONE HCL 150 MG/3 ML INJ IV ONE ×2 (00:38)
[2022-03-16] MEDS ORDERED: D5W 100 ML IV ONE (00:38)
[2022-03-16] MEDS ORDERED: AMIODARONE IN DEXTROSE,ISO-OSM 360 MG/200 ML BAG IV ONE (00:47)
--- NOTE | 2022-03-16 01:14 | P.PN ---
Date of Service: 03/16/22 Pt went in to afib RVR with rate of 170-180. BP soft around 90-100systolic. Discussed case with cardiology who recommends amiodaron bolus and drip which have been ordered. Also stat chemistry/mag added.
[2022-03-16 01:19] LABS: Magnesium 2.4 mg/dL (1.8-2.4)
[2022-03-16 01:20] LABS: Potassium 6.2 mmol/L (3.5-5.1)
[2022-03-16] MEDS ORDERED: CALCIUM GLUC 10% INJ 4.65 MEQ in NA CHLORIDE 0.9% 100 ML IV ONE (01:36)
[2022-03-16] MEDS ORDERED: CALCIUM GLUCONATE 1 GM IVPB 1 GM/50 ML BAG IV ONE ×2 (02:00→03:00)
[2022-03-16] MEDS ORDERED: CALCIUM GLUCONATE 1 GM IVPB 2 GM/100 ML BAG IV ONE (02:45)
[2022-03-16 05:15] LABS: Hematocrit 22.6 % (36.0-45.0); MCV 76.3 fL (80-100); MPV 8.7 fL (7.6-11.3); RBC Red Blood Cell Count 2.97 M/uL (3.86-4.86)
[2022-03-16] MEDS ORDERED: METOPROLOL TARTRATE 5 MG/5 ML INJ IV STA ×4 (05:29→19:07)
[2022-03-16 05:32] LABS: Albumin 1.5 g/dL (3.4-5.0); Bilirubin Total 0.5 mg/dL (0.2-1.0); Magnesium 2.4 mg/dL (1.8-2.4); Protein, Total 5.2 g/dL (6.4-8.2)
[2022-03-16 05:34] LABS: Potassium 6.2 mmol/L (3.5-5.1)
[2022-03-16] MEDS ORDERED: NA CHLORIDE 0.9% 250 ML IV SCH (06:00)
--- NOTE | 2022-03-16 06:01 | P.PN ---
Date of Service: 03/16/22 Subjective: off levo yesterday evening afib overnight, on amio drip, back to sinus rhythm feeling better, minimal output in ostomy ROS: 10 point ROS as noted above, otherwise negative Physical exam GEN: AOx3, uncomfortable HEENT: NGT to LIWS CV: Regular rate and rhythm, no edema Pulm: Non-labored respirations on 2L NC ABD: surgical dressing in place, ostomy with no stool, minimal air Neuro: Normal speech, normal affect Problem List perforated diverticula, s/o colectomy and ostomy acute worsening of CKD 4, now on dialysis Metabolic acidosis secondary to HERMILA anemia in chronic kidney disease h/o lupus nephritis SLE hyperphosphatemia initially concerned for jejunitis possibly secondary to mycophenolate therapy patient's mom reports (03/14) patient has been taking excedrin frequently. patient states she takes 1-2 pills most days/week for pain patient had initial improvement, and diet was slowly advanced she then began to have worsening abdominal pain and bloating, repeat CT (03/13): significantly increased free air managed medically per general surgery recommendations Patient worsened on 03/14 and required ex-lap, colectomy, ostomy 03/15 - continued postoperatively with low BP, pain meds dropped MAP <60, patient started on levophed given gentle IVF with improvementn and weaned levophed evening of 03/15 NPO, NGT in place Nephrology initiated IV steroids solumed 40q8h on 03/09, titrate down once off levophed / avoid adrenal insufficiency/crises renal function worsened, patient started dialysis 03/11, tolerated well continue HD per nephrology kincaid placed evening of 03/09, patient had some mild retention, continue for strict i/o's s/p 3uPRBC. no bleeding monitor H&H, keep Hgb > 7 Blood cx: pansensitive e.coli, urine cx: negative abd cultures: pseudomonas ID consulted zosyn changed to cefepime 03/13 repeat blood cultures without growth; will need tunneled cath once stable, will consult Dr. Caputo closer to when she's ready, maybe in 2-3 days afib last night, continue amiodarone drip Code: full Dispo: home, ~3-4 days monitoring renal function set up for outpatient HD will need tunneled cath Time Spent Managing Pts Care (In Minutes): 35
[2022-03-16] MEDS: NA CHLORIDE 0.9% 1,000 ML IV SCH (06:08)
[2022-03-16] MEDS: AMIODARONE HCL 900 MG in Dextrose 5%-Water 482 ML IV SCH (07:43)
[2022-03-16 07:46] LABS: Platelet Estimate DECR
[2022-03-16 07:47] LABS: Anisocytosis 1+; Blood Morphology Comment NOTED (NOT SEEN); Dohle Bodies PRESENT; Platelets, Giant FEW; Poikilocytosis 1+; Toxic Granulation NOTED
[2022-03-16] MEDS: PANTOPRAZOLE 40 MG INJ IVP SCH ×2 (09:00→22:30)
[2022-03-16] MEDS ORDERED: NA CHLORIDE 0.9% 250 ML ONE (09:19)
--- NOTE | 2022-03-16 09:25 | EKG ---
Test Date: 2022-03-16 Test Time: 00:27:33 Pattern Perforating Machine Operator: EFRA MEASUREMENT RESULTS: Intervals: Rate: 178 FL: QRSD: 60 QT: 256 QTc: 440 [place]: P: FL: QRS: 14 T: 162 INTERPRETIVE STATEMENTS: Atrial fibrillation with rapid ventricular response ST & T wave abnormality, consider inferolateral ischemia or digitalis effect Abnormal ECG Compared to ECG 02/11/2022 14:45:58 ST (T wave) deviation now present Possible ischemia now present Sinus rhythm no longer present Myocardial infarct finding no longer present Electronically Signed On 03-16-22 09:24:37 CDT by Gage Christy
--- NOTE | 2022-03-16 09:25 | EKG ---
Test Date: 2022-03-16 Test Time: 00:31:08 [facility] Director: EFRA MEASUREMENT RESULTS: Intervals: Rate: 170 [place]: QRSD: 58 QT: 262 QTc: 440 [place]: P: [place]: QRS: 15 T: 167 INTERPRETIVE STATEMENTS: Atrial fibrillation with rapid ventricular response ST & T wave abnormality, consider lateral ischemia or digitalis effect Abnormal ECG Compared to ECG 03/16/2022 00:27:33 No significant changes Electronically Signed On 03-16-22 09:24:36 CDT by Gage Christy
[2022-03-16] MEDS: HYDROMORPHONE HCL 0.5 MG/0.5 ML INJ IV PRN ×2 (13:48→16:16)
[2022-03-16] MEDS ORDERED: MINERAL OIL 30 ML UCUP PO ONE (13:49)
--- NOTE | 2022-03-16 14:27 | P.PN ---
Date of Service: 03/16/22 S: Patient has no specific complaints today. Has been trying to eat a soft diet. Minimal out through NG tube [will DC]. Pain is well controlled. O: Patient went into SVR last night. Back in sinus rhythm. Vital signs are stable. Minimal out through ANDREW drain. Rivera catheter has been DC'd. Abdominal binder in place. A: Patient doing well from a surgical standpoint P: I will DC the nasogastric tube today. We will write for her a soft diet, advance as tolerated. She will receive some mineral oil prior to the nasogastric tube being removed. Physical therapy has been ordered, and it was emphasized to her that she needs to do it today. She is agreeable. Her sister is here as well.
--- NOTE | 2022-03-16 14:34 | P.PN ---
Subjective Date of Service: 03/16/22 Chief Complaint: Abdominal pain Patient seen and examined at bedside, states she is feeling well. Minimal abdominal tenderness. Review of Systems 10-point ROS is otherwise unremarkable Physical Examination - Vital Signs Temperature: 97.3 F Blood Pressure: 146/98 Pulse: 91 Respirations: 27 Pulse Ox (%): 98 - Studies Microbiology Data (last 24 hrs): Microbiology 03/09/22 06:47 Clean Catch Urine [place] Count - Final No growth. 03/09/22 06:47 Clean Catch Urine - Final No growth. Assessment And Plan - Plan Physical exam: General: Oriented x3, Moderate distress HEENT: Atraumatic Neck: Supple Respiratory: Clear to auscultation bilaterally, Normal air movement Cardiovascular: No edema, Normal pulses, Regular rate/rhythm Capillary refill: <2 Seconds Gastrointestinal: Abdominal binder in place, left colostomy bag, ANDREW drain Musculoskeletal: No clubbing, No swelling, No contractures, No erythema Conclusions/Impression: Antibiotics Cefepime: 03/13current Zosyn: Assessment/plan Gram-negative bacteremia secondary to micro abdominal perforation -Blood cultures grew E. coli, pansensitive. -Origin of intestinal perforation unclear, possible side effect of CellCept CellCept being held due to active infection -Patient currently on high-dose Solu-Medrol 40 mg every 8 hours -Had exploratory laparotomy on 03/14 which resulted in a left colectomy and end colostomy. ANDREW drain in place. NG tube placed during surgery, plans to pull today. Wound culture from surgery growing Pseudomonas and E. coli both sensitive to cefepime. Recommend continuing at this time. HERMILA secondary to lupus nephritis -Currently receiving dialysis Metabolic acidosis Resolved Anemia Status post 3 units of packed red blood cells. Improving. Plan of care discussed with Dr. Villegas Thank you for consultation
[2022-03-16] MEDS ORDERED: METOPROLOL TARTRATE 5 MG/5 ML INJ IV ONE (16:55)
[2022-03-16] MEDS: CEFEPIME 1 GM in NA CHLORIDE 0.9% 100 ML IV SCH (17:41)
--- NOTE | 2022-03-16 18:11 | P.PN ---
Date of Service: 03/16/22 Vital Signs Temp Pulse Resp BP Pulse Ox 97.2 F 155 H 26 H 126/84 97 03/16/22 16:00 03/16/22 17:24 03/16/22 17:00 03/16/22 17:00 03/16/22 17:00 Medications Acetaminophen (Acetaminophen 500 Mg Tab) 500 mg PO Q6H PRN PRN Reason: Pain scale 2-4 (Mild) Diazepam (Diazepam 5 Mg Tablet) 5 mg PO BEDTIME PRN PRN Reason: INSOMNIA Heparin Sodium (Porcine) (Heparin 1,000 Unit/Ml Vial) 4,000 unit IV EVERY HD PRN PRN Reason: DIALYSIS CATHETER CARE Last Admin: 03/11/22 23:52 Dose: 4,000 unit Documented by: Hydromorphone HCl (Hydromorphone Hcl 0.5 Mg/0.5 Ml Inj) 0.5 mg IV Q2H PRN PRN Reason: Pain scale 8-10 (Severe) Last Admin: 03/16/22 16:16 Dose: 0.5 mg Documented by: Sodium Chloride (Sodium Chloride) 250 mls @ 0 mls/hr IV .Q0M [facility] Last Admin: 03/11/22 08:09 Dose: 250 mls Documented by: Cefepime HCl 1 gm/ Sodium (Chloride) 100 mls @ 200 mls/hr IV Q24H [facility] Last Admin: 03/16/22 17:41 Dose: 100 mls Documented by: Norepinephrine Bitartrate 4 mg (/ Dextrose) 254 mls @ 11.43 mls/hr IV TITR [facility]; Protocol Last Titration: 03/15/22 17:45 Dose: 0 mcg/min, 0 mls/hr Documented by: Sodium Chloride (Ns 1000 Ml Ivbag) 1,000 mls @ 50 mls/hr IV .Q20H [facility] Last Admin: 03/16/22 06:08 Dose: 1,000 mls Documented by: Amiodarone HCl 900 mg/ (Dextrose) 500 mls @ 33.333 mls/hr IV CONT [facility]; Protocol Last Admin: 03/16/22 07:43 Dose: 500 mls Documented by: Sodium Chloride (Sodium Chloride) 250 mls @ 0 mls/hr IV .Q0M ABDI Methylprednisolone Sodium Succinate (Methylprednisolone 40 Mg Inj) 40 mg IV Q8HR [facility] Last Admin: 03/16/22 17:42 Dose: 40 mg Documented by: Ondansetron HCl (Ondansetron 4 Mg/2 Ml Vial) 4 mg IV Q6HP PRN PRN Reason: NAUSEA / VOMITING Last Admin: 03/11/22 21:40 Dose: 4 mg Documented by: Pantoprazole Sodium (Pantoprazole 40 Mg Inj) 40 mg IVP Q12HR [facility]; Protocol Last Admin: 03/16/22 09:00 Dose: 40 mg Documented by: Phenol (Phenol 1.4% Oral [place] 180ml) 2 appl MM Q4H PRN PRN Reason: SORE THROAT Last Admin: 03/15/22 11:02 Dose: 2 appl Documented by: Sodium Chloride (Flush Normal Saline 10 Ml) 10 ml IV BID [facility] Last Admin: 03/16/22 09:00 Dose: Not Given Documented by: Sodium Chloride (Sodium Chloride 0.9% 10ml Inj) 10 ml IV UD PRN PRN Reason: Diluant Microbiology Results 03/09/22 06:47 Clean Catch Urine [place] Count - Final No growth. 03/09/22 06:47 Clean Catch Urine - Final No growth. Assessment/ Plan: Nephrology Weakness and fatigue No chest pain No dyspnea Vitals, medications, blood work and imaging reviewed in the chart. General: Oriented x3, Cooperative, NAD HEENT: Atraumatic Neck: Supple Respiratory: Normal respiratory effort Cardiovascular: Regular rate/rhythm, Edema Gastrointestinal: Tenderness Musculoskeletal: No clubbing, No contractures Integumentary: No rashes, No cyanosis Neurological: Normal speech Laboratory Data (last 24 hrs) 03/09/22 06:19: Sodium 138, Potassium 4.5, BUN 79 H, Creatinine 6.88 H*, Glucose 121 H, Total Bilirubin 0.1 L, AST 6 L, ALT 21, Alkaline Phosphatase 57, Lipase 129 03/09/22 06:19: WBC 4.7, Hgb 6.4 L*, Hct 20.5 L*, Plt Count 242 Imagings Data: EXAM DESCRIPTION: CT - Abdomen Pelvis Wo Contrast - 03/09/2022 8:37 am CLINICAL HISTORY: Abdominal pain, acute, nonlocalized COMPARISON: CT ABD PELVIS W CONTRAST dated 01/23/2013; Transvaginal Study Probe dated 02/05/2022 TECHNIQUE: Axial [address] imaging of the abdomen and pelvis was performed without IV contrast. No IV contrast was given because of allergy, abnormal renal function, patient refusal or physician request. No oral contrast administered. All CT scans are performed using dose optimization technique as appropriate and may include automated exposure control or mA/KV adjustment according to patient size. FINDINGS: No suspicious findings in the lung bases. The liver, spleen and pancreas show no suspicious findings on non-contrast imaging. Gallbladder is contracted around multiple gallstones. No biliary tree dilatation. No hydronephrosis or suspicious renal mass. No significant adrenal finding. Isodense renal masses and pyelonephritis cannot be excluded in the absence of IV contrast. The urinary bladder is without significant finding. IUD appears to be well positioned within the fundal and midportion of the uterus. Uterine contour is deformed by multiple fibroids. Along the left inferior margin of the fundus there is an approximately 3 centimeter fibroid. Right lateral approximately 3 centimeter fibroid seen as well. No fallopian tube or ovarian abnormality. There is no abnormal air or fluid collection in the pelvis. No gastric dilatation or gastric wall thickening. Fluid is present filling but not dilating the stomach. No duodenum abnormality seen. Proximal jejunal loops are abnormal. There is wall thickening and edema. Stranding is present in the adjacent mesenteric fat. In the proximal jejunum just distal to the ligament of Treitz there is abnormal air collection along the wall of the the jejunum extending as punctate areas of extraluminal free air. The adjacent splenic flexure region of the colon does have diverticulosis. However, no wall thickening or wall edema seen. The air is believed to be from jejunum rather than an acute diverticulitis. More distally the loops of ileum show no suspicious finding. No direct or indirect appendicitis findings. Left-sided colonic diverticulosis present without acute diverticulitis findings. No acute colon finding seen. No other area of free air or acute finding. No abscess or drainable fluid collection. No hernia, mass or bulky lymphadenopathy. No suspicious bony findings. Findings telephoned to referring physician 8:52 a.m. IMPRESSION: Wall thickening and edema involve multiple loops of jejunum with minimal amount of extra luminal free air adjacent to the proximal jejunum. No associated mass or foreign body identified. No abscess or drainable fluid collection. No free air distant from the jejunum. IUD appears to be well positioned within the multi fibroid uterus. No DOMESTIC MAID or pelvic acute finding identifiable. Diverticulosis without acute diverticulitis. Multi stone cholelithiasis without acute finding. 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 Pollack Greater than 30min patient care
[2022-03-16 21:46] LABS: Hematocrit 25.3 % (36.0-45.0); MCV 73.8 fL (80-100); MPV 9.8 fL (7.6-11.3); RBC Red Blood Cell Count 3.43 M/uL (3.86-4.86)
[2022-03-17] MEDS: HYDROMORPHONE HCL 0.5 MG/0.5 ML INJ IV PRN ×5 (01:58→23:35)
[2022-03-17] MEDS: METHYLPREDNISOLONE 40 MG INJ IV SCH ×4 (02:00→18:28)
[2022-03-17] MEDS: NA CHLORIDE 0.9% 1,000 ML IV SCH (02:01)
[2022-03-17 05:16] LABS: Hematocrit 24.6 % (36.0-45.0); MCV 74.4 fL (80-100); MPV 8.5 fL (7.6-11.3); RBC Red Blood Cell Count 3.31 M/uL (3.86-4.86)
[2022-03-17 05:45] LABS: Albumin 1.5 g/dL (3.4-5.0); Bilirubin Total 0.5 mg/dL (0.2-1.0); Magnesium 2.4 mg/dL (1.8-2.4); Phosphorus 7.6 mg/dL (2.5-4.9); Potassium 5.2 mmol/L (3.5-5.1); Protein, Total 5.4 g/dL (6.4-8.2)
[2022-03-17 06:47] LABS: Dohle Bodies PRESENT; Platelet Estimate DECR; Toxic Granulation NOTED
[2022-03-17 06:48] LABS: Anisocytosis 1+; Blood Morphology Comment NOTED (NOT SEEN); Hypochromasia 1+; Poikilocytosis 2+; Teardrop Cell 1+
--- NOTE | 2022-03-17 06:52 | ECHO ---
HEIGHT: 5 ft 3 in WEIGHT: 203 lb 4.8 oz DATE OF STUDY: 03/16/[address]: Hermelindo Gomes NP 2-DIMENSIONAL: YES M.MODE: YES DOPPLER: YES COLOR FLOW: YES TDS: NO PORTABLE: YES DEFINITY: NO BUBBLE STUDY: NO DIAGNOSIS: NEW ONSET ATRIAL FIBRILLATION CARDIAC HISTORY: CATHERIZATION: SURGERY: PROSTHETIC VALVE: PACEMAKER: MEASUREMENTS (cm) DIASTOLIC (NORMALS) SYSTOLIC (NORMALS) IVSd 1.1 (0.6-1.2) LA Diam 2.8 (1.9-4.0) LVEF 55-60% LVIDd 3.7 (3.5-5.7) LVIDs 2.7 (2.0-3.5) %FS 25% LVPWd 1.3 (0.6-1.2) Ao Diam 2.8 (2.0-3.7) 2 DIMENSIONAL ASSESSMENT: RIGHT ATRIUM: NORMAL LEFT ATRIUM: NORMAL RIGHT VENTRICLE: NORMAL LEFT VENTRICLE: NORMAL TRICUSPID VALVE: MILD TRICUSPID REGURGITATION MITRAL VALVE: MILD MITRAL REGURGITATION PULMONIC VALVE: NORMAL AORTIC VALVE: NORMAL PERICARDIAL EFFUSION: NONE AORTIC ROOT: NORMAL LEFT VENTRICULAR WALL MOTION: NORMAL. DOPPLER/COLOR FLOW: MILD TRICUSPID REGURGITATION, MILD MITRAL REGURGITATION. COMMENTS: NORMAL LEFT VENTRICULAR EJECTION FRACTION 55-60%. NORMAL WALL MOTION. MILD MITRAL AND TRICUSPID REGURGITATION. TECHNOLOGIST: SHARI EPPS
[2022-03-17] MEDS: PANTOPRAZOLE 40 MG INJ IVP SCH ×2 (09:32→20:51)
[2022-03-17] MEDS: AMIODARONE HCL 900 MG in Dextrose 5%-Water 482 ML IV SCH (11:37)
--- NOTE | 2022-03-17 12:37 | EKG ---
Test Date: 2022-03-16 Test Time: 21:11:02 Boat Driver: RT Weathers MEASUREMENT RESULTS: Intervals: Rate: 74 RI: 142 QRSD: 74 QT: 366 QTc: 406 [place]: P: 21 RI: 142 QRS: 12 T: 69 INTERPRETIVE STATEMENTS: Normal sinus rhythm ST elevation, consider inferior injury or acute infarct ACUTE TN Consider right ventricular involvement in acute inferior infarct Abnormal ECG Compared to ECG 03/16/2022 21:10:25 No significant changes Electronically Signed On 03-17-22 12:36:26 CDT by Juan A Vargas
--- NOTE | 2022-03-17 12:38 | EKG ---
Test Date: 2022-03-16 Test Time: 21:10:25 Salesperson Stereo Equipment: RT Weathers MEASUREMENT RESULTS: Intervals: Rate: 69 [place]: 138 QRSD: 68 QT: 372 QTc: 398 [place]: P: 17 NJ: 138 QRS: 13 T: 69 INTERPRETIVE STATEMENTS: Normal sinus rhythm ST elevation, consider inferior injury or acute infarct ACUTE [place] Consider right ventricular involvement in acute inferior infarct Abnormal ECG Compared to ECG 03/16/2022 00:31:08 Myocardial infarct finding now present Myocardial infarct finding now present Atrial fibrillation no longer present Possible ischemia no longer present ST (T wave) deviation still present Electronically Signed On 03-17-22 12:36:43 CDT by Juan A Vargas
--- NOTE | 2022-03-17 12:58 | P.PN ---
Subjective Date of Service: 03/17/22 Chief Complaint: Abdominal pain Patient is tolerating soft diet. Colostomy also has loose output. No fever. She is currently maximum assist. Physical Examination - Vital Signs Temperature: 97.7 F Blood Pressure: 155/102 Pulse: 81 Respirations: 18 Pulse Ox (%): 98 Assessment And Plan - Current Problems (Diagnosis) (1) Acute worsening of stage 4 chronic kidney disease Current Visit: Yes Status: Acute (2) Metabolic acidosis Current Visit: Yes Status: Acute (3) Jejunitis Current Visit: Yes Status: Acute (4) Bowel perforation Current Visit: Yes Status: Acute (5) Anemia in chronic kidney disease Current Visit: Yes Status: Acute (6) Lupus nephritis Current Visit: No Status: Acute (7) SLE (systemic lupus erythematosus related syndrome) Current Visit: No Status: Acute - Plan Physical exam GEN: AOx3, propped up, not in acute distress. CV: Regular rate and rhythm, no edema Pulm: Clear to auscultation bilaterally. ABD: surgical dressing in place, ostomy with loose stool, no blood. Neuro: Normal speech, normal affect Problem List perforated diverticula, s/o colectomy and ostomy acute worsening of CKD 4, now on dialysis Metabolic acidosis secondary to HERMILA anemia in chronic kidney disease h/o lupus nephritis SLE hyperphosphatemia initially concerned for jejunitis possibly secondary to mycophenolate therapy Reported initial improvement, and diet was slowly advanced she then began to have worsening abdominal pain and bloating, repeat CT (03/13): significantly increased free air managed medically per general surgery recommendations Patient worsened on 03/14 and required ex-lap, colectomy, ostomy 03/15 - continued postoperatively with low BP, and eventually needed Levophed transiently. On IV steroid Patient tolerating soft diet. Renal function worsened, patient started dialysis 03/11, tolerated well Further hemodialysis per nephrology. kincaid placed evening of 03/09, patient had some mild retention, continue for strict i/o's s/p 3uPRBC. no bleeding monitor H&H, keep Hgb > 7 Blood cx: pansensitive e.coli, urine cx: negative abd cultures: pseudomonas ID consulted, zosyn changed to cefepime 03/13. repeat blood cultures without growth; Continue cefepime. Patient will need tunneled cath once stable. Had intermittent atrial fibrillation and started on amiodarone drip. Patient currently in sinus rhythm. Code: full Dispo: home. monitoring renal function set up for outpatient HD will need tunneled cath
--- NOTE | 2022-03-17 15:04 | P.PN ---
Date of Service: 03/17/22 S: Patient awake alert no specific complaints today. Was able to sit up on the edge of the bed today with physical therapy. Pain is well controlled. Has been tolerating a soft diet. O: Vital signs are stable, minimal after ANDREW drain. Colostomy is viable. Good effort on incentive spirometry. A: Stable status post exploratory laparotomy with partial colectomy and end colostomy P: We will continue to advance diet, encourage mobilization, colostomy teaching. May be transferred to the floor soon.
--- NOTE | 2022-03-17 15:20 | CON ---
Date of Consultation: 03/16/2022 Reason For Consultation: New onset atrial fibrillation. History Of Present Illness: Ms. Mendez is a 32-year-old woman who came in with perforated bowel wit h peritonitis. She is status post left colectomy with end colostomy on 03/14/2022. She h as a history of hypertension, anemia, and lupus atrial fibrillation, rate of 160, and requir ed beta-maribeth, and I recommended IV amiodarone. On the morning , she was in sinus rhythm . She was extubated and had no complaint cardiac-aguilar. Past Medical History: As stated above. Allergies: SHE IS ALLERGIC TO TRAMADOL. Review of Systems: Negative. Social History: Negative. Family History: Negative. Medications: At home include , hydrochlorothiazide, Coreg, Norvasc, and Pepcid. Physical Examination: General: She was alert, oriented x3. VITAL SIGNS: Stable. Sinus rhythm, on IV amiodarone. HEENT: Exam is negative. Neck: Supple with no bruit. Chest: Clear. Cardiac: Exam revealed normal rhythm. No murmurs, gallops, or rubs. Abdomen: Status post surgery. Extremities: Revealed trace edema. Diagnostic Data: However showed a creatinine of 6.3, hemoglobin of 7.3, potassium is 6.3, initial EKG. Impression And Plan: Atrial fibrillation, probably secondary to electrolyte abnormality and the stre ss of surgery. She cannot get continue IV amiodarone. The echocardiogram is pending. Co ntinue treatment. She needs the hemoglobin, potassium, and kidney function addressed and followed by Nephrology. She has already started hemodialysis, I am hoping this is temporar y. I would not anticoagulate Ms. Mendez in the long run. As far as atrial fibrillation is concerne d, echocardiogram shows wall motion abnormalities. Continue to follow that. YELENA/ANTONIO Voice ID: [id number] Report ID: [id number]
--- NOTE | 2022-03-17 16:58 | P.PN ---
Subjective Date of Service: 03/17/22 Chief Complaint: Abdominal pain Patient seen and examined at bedside, WBC increasing, will add Levaquin to antibiotic regimen for double coverage. Review of Systems 10-point ROS is otherwise unremarkable Physical Examination - Vital Signs Temperature: 97.0 F Blood Pressure: 146/100 Pulse: 74 Respirations: 17 Pulse Ox (%): 98 - Studies Active Medications Acetaminophen (Acetaminophen 500 Mg Tab) 500 mg PO Q6H PRN PRN Reason: Pain scale 2-4 (Mild) Hydrocodone Bitart/Acetaminophen (Hydrocodone/Apap 7.5/325 Mg Tab) 1 tab PO Q4H PRN PRN Reason: Pain scale 8-10 (Severe) Diazepam (Diazepam 5 Mg Tablet) 5 mg PO BEDTIME PRN PRN Reason: INSOMNIA Hydromorphone HCl (Hydromorphone Hcl 0.5 Mg/0.5 Ml Inj) 0.5 mg IV Q2H PRN PRN Reason: Pain scale 8-10 (Severe) Last Admin: 03/17/22 13:29 Dose: 0.5 mg Documented by: Sodium Chloride (Sodium Chloride) 250 mls @ 0 mls/hr IV .Q0M [facility] Last Admin: 03/11/22 08:09 Dose: 250 mls Documented by: Cefepime HCl 1 gm/ Sodium (Chloride) 100 mls @ 200 mls/hr IV Q24H [facility] Last Admin: 03/16/22 17:41 Dose: 100 mls Documented by: Sodium Chloride (Ns 1000 Ml Ivbag) 1,000 mls @ 50 mls/hr IV .Q20H [facility] Last Admin: 03/17/22 02:01 Dose: 1,000 mls Documented by: Sodium Chloride (Sodium Chloride) 250 mls @ 0 mls/hr IV .Q0M [facility] Methylprednisolone Sodium Succinate (Methylprednisolone 40 Mg Inj) 40 mg IV Q8HR [facility] Last Admin: 03/17/22 09:32 Dose: 40 mg Documented by: Ondansetron HCl (Ondansetron 4 Mg/2 Ml Vial) 4 mg IV Q6HP PRN PRN Reason: NAUSEA / VOMITING Last Admin: 03/11/22 21:40 Dose: 4 mg Documented by: Pantoprazole Sodium (Pantoprazole 40 Mg Inj) 40 mg IVP Q12HR [facility]; Protocol Last Admin: 03/17/22 09:32 Dose: 40 mg Documented by: Phenol (Phenol 1.4% Oral [place] 180ml) 2 appl MM Q4H PRN PRN Reason: SORE THROAT Last Admin: 03/15/22 11:02 Dose: 2 appl Documented by: Sodium Chloride (Flush Normal Saline 10 Ml) 10 ml IV BID [facility] Last Admin: 03/17/22 07:08 Dose: Not Given Documented by: Sodium Chloride (Sodium Chloride 0.9% 10ml Inj) 10 ml IV UD PRN PRN Reason: Diluant Assessment And Plan - Plan Physical exam: General: Oriented x3, Moderate distress HEENT: Atraumatic Neck: Supple Respiratory: Clear to auscultation bilaterally, Normal air movement Cardiovascular: No edema, Normal pulses, Regular rate/rhythm Capillary refill: <2 Seconds Gastrointestinal: Abdominal binder in place, left colostomy bag, ANDREW drain Musculoskeletal: No clubbing, No swelling, No contractures, No erythema Conclusions/Impression: Antibiotics Cefepime: 03/13current Zosyn: Assessment/plan Gram-negative bacteremia secondary to micro abdominal perforation -Blood cultures grew E. coli, pansensitive. -Origin of intestinal perforation unclear, possible side effect of CellCept CellCept being held due to active infection -Patient currently on high-dose Solu-Medrol 40 mg every 8 hours -Had exploratory laparotomy on 03/14 which resulted in a left colectomy and end colostomy. ANDREW drain in place. NG tube placed during surgery,removed on 03/16. Wound culture from surgery growing Pseudomonas and E. coli both sensitive to cefepime. WBC increasing, Levaquin added to antibiotic regimen on 03/17 for double coverage. HERMILA secondary to lupus nephritis -Currently receiving dialysis Metabolic acidosis Resolved Anemia Status post 3 units of packed red blood cells. Improving. Plan of care discussed with Dr. Villegas Thank you for consultation
[2022-03-17] MEDS: CEFEPIME 1 GM in NA CHLORIDE 0.9% 100 ML IV SCH (17:00)
--- NOTE | 2022-03-17 17:33 | P.PN ---
Date of Service: 03/17/22 Vital Signs Temp Pulse Resp BP Pulse Ox 97.0 F 74 17 146/100 H 98 03/17/22 16:58 03/17/22 16:58 03/17/22 16:58 03/17/22 16:58 03/17/22 16:58 Medications Acetaminophen (Acetaminophen 500 Mg Tab) 500 mg PO Q6H PRN PRN Reason: Pain scale 2-4 (Mild) Hydrocodone Bitart/Acetaminophen (Hydrocodone/Apap 7.5/325 Mg Tab) 1 tab PO Q4H PRN PRN Reason: Pain scale 8-10 (Severe) Diazepam (Diazepam 5 Mg Tablet) 5 mg PO BEDTIME PRN PRN Reason: INSOMNIA Hydromorphone HCl (Hydromorphone Hcl 0.5 Mg/0.5 Ml Inj) 0.5 mg IV Q2H PRN PRN Reason: Pain scale 8-10 (Severe) Last Admin: 03/17/22 13:29 Dose: 0.5 mg Documented by: Sodium Chloride (Sodium Chloride) 250 mls @ 0 mls/hr IV .Q0M [facility] Last Admin: 03/11/22 08:09 Dose: 250 mls Documented by: Cefepime HCl 1 gm/ Sodium (Chloride) 100 mls @ 200 mls/hr IV Q24H [facility] Last Admin: 03/17/22 17:00 Dose: 100 mls Documented by: Sodium Chloride (Ns 1000 Ml Ivbag) 1,000 mls @ 50 mls/hr IV .Q20H [facility] Last Admin: 03/17/22 02:01 Dose: 1,000 mls Documented by: Sodium Chloride (Sodium Chloride) 250 mls @ 0 mls/hr IV .Q0M [facility] Levofloxacin/Dextrose (Levaquin 750 Mg/150 Ml Ivpb (Premix)) 750 mg in 150 mls @ 100 mls/hr IV Q24H [facility]; Protocol Methylprednisolone Sodium Succinate (Methylprednisolone 40 Mg Inj) 40 mg IV Q8HR [facility] Last Admin: 03/17/22 17:00 Dose: 40 mg Documented by: Pantoprazole Sodium (Pantoprazole 40 Mg Inj) 40 mg IVP Q12HR [facility]; Protocol Last Admin: 03/17/22 09:32 Dose: 40 mg Documented by: Phenol (Phenol 1.4% Oral [place] 180ml) 2 appl MM Q4H PRN PRN Reason: SORE THROAT Last Admin: 03/15/22 11:02 Dose: 2 appl Documented by: Sodium Chloride (Flush Normal Saline 10 Ml) 10 ml IV BID ABDI Last Admin: 03/17/22 07:08 Dose: Not Given Documented by: Sodium Chloride (Sodium Chloride 0.9% 10ml Inj) 10 ml IV UD PRN PRN Reason: Diluant Microbiology Results 03/09/22 06:47 Clean Catch Urine [place] Count - Final No growth. 03/09/22 06:47 Clean Catch Urine - Final No growth. Assessment/ Plan: Nephrology Weakness and fatigue Feeling better with an improved appetite this morning No chest pain No dyspnea Episode of rapid afib yesterday while working with PT Vitals, medications, blood work and imaging reviewed in the chart. General: Oriented x3, Cooperative, NAD HEENT: Atraumatic Neck: Supple Respiratory: Normal respiratory effort Cardiovascular: Regular rate/rhythm, Edema Gastrointestinal: Tenderness Musculoskeletal: No clubbing, No contractures Integumentary: No rashes, No cyanosis Neurological: Normal speech Laboratory Data (last 24 hrs) 03/09/22 06:19: Sodium 138, Potassium 4.5, BUN 79 H, Creatinine 6.88 H*, Glucose 121 H, Total Bilirubin 0.1 L, AST 6 L, ALT 21, Alkaline Phosphatase 57, Lipase 129 03/09/22 06:19: WBC 4.7, Hgb 6.4 L*, Hct 20.5 L*, Plt Count 242 Imagings Data: EXAM DESCRIPTION: CT - Abdomen Pelvis Wo Contrast - 03/09/2022 8:37 am CLINICAL HISTORY: Abdominal pain, acute, nonlocalized COMPARISON: CT ABD PELVIS W CONTRAST dated 01/23/2013; Transvaginal Study Probe dated 02/05/2022 TECHNIQUE: Axial [address] imaging of the abdomen and pelvis was performed without IV contrast. No IV contrast was given because of allergy, abnormal renal function, patient refusal or physician request. No oral contrast administered. All CT scans are performed using dose optimization technique as appropriate and may include automated exposure control or mA/KV adjustment according to patient size. FINDINGS: No suspicious findings in the lung bases. The liver, spleen and pancreas show no suspicious findings on non-contrast imaging. Gallbladder is contracted around multiple gallstones. No biliary tree dilatation. No hydronephrosis or suspicious renal mass. No significant adrenal finding. Isodense renal masses and pyelonephritis cannot be excluded in the absence of IV contrast. The urinary bladder is without significant finding. IUD appears to be well positioned within the fundal and midportion of the uterus. Uterine contour is deformed by multiple fibroids. Along the left inferior margin of the fundus there is an approximately 3 centimeter fibroid. Right lateral approximately 3 centimeter fibroid seen as well. No fallopian tube or ovarian abnormality. There is no abnormal air or fluid collection in the pelvis. No gastric dilatation or gastric wall thickening. Fluid is present filling but not dilating the stomach. No duodenum abnormality seen. Proximal jejunal loops are abnormal. There is wall thickening and edema. Stranding is present in the adjacent mesenteric fat. In the proximal jejunum just distal to the ligament of Treitz there is abnormal air collection along the wall of the the jejunum extending as punctate areas of extraluminal free air. The adjacent splenic flexure region of the colon does have diverticulosis. However, no wall thickening or wall edema seen. The air is believed to be from jejunum rather than an acute diverticulitis. More distally the loops of ileum show no suspicious finding. No direct or indirect appendicitis findings. Left-sided colonic diverticulosis present without acute diverticulitis findings. No acute colon finding seen. No other area of free air or acute finding. No abscess or drainable fluid collection. No hernia, mass or bulky lymphadenopathy. No suspicious bony findings. Findings telephoned to referring physician 8:52 a.m. IMPRESSION: Wall thickening and edema involve multiple loops of jejunum with minimal amount of extra luminal free air adjacent to the proximal jejunum. No associated mass or foreign body identified. No abscess or drainable fluid collection. No free air distant from the jejunum. IUD appears to be well positioned within the multi fibroid uterus. No PARK WORKER or pelvic acute finding identifiable. Diverticulosis without acute diverticulitis. Multi stone cholelithiasis without acute finding. 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 -No NSAIDs -Continue acute HD for HERMILA AG Acidosis in the setting of HERMILA -HD as ordered HTN complicated by hypotension -Hold anti-hypertensives -Albumin IV prn Severe malnutrition Hypoalbuminemia -Advance diet as tolerated -Continue Protonix -Albumin IV prn Anemia in chronic illness -Retacrit TIW -PRBC prn CKD MBD HyperPO4 -Start Vitamin D Jejunitis with performation may be due to Mycophenolate therapy Peritonitis Colectomy with colostomy -Continue IV Abx -Dilaudid IV prn -Hold Mycophenolate -Continue Protonix IV q12h -Wean steroids Greater than 30min patient care
[2022-03-17] MEDS ORDERED: Levofloxacin 750mg IV 750 MG/150 ML BAG IV SCH (18:00)
[2022-03-17] MEDS: HYDROCODONE/APAP 7.5/325 MG TAB PO PRN (20:01)
[2022-03-17] MEDS: HYDRALAZINE HCL 20 MG/ML VIAL IV PRN (22:53)
[2022-03-18] MEDS: HYDROMORPHONE HCL 0.5 MG/0.5 ML INJ IV PRN ×4 (02:49→13:41)
[2022-03-18 05:31] LABS: Absolute Lymphocytes (CBC) 0.3 K/uL (0.7-4.9); Hematocrit 24.8 % (36.0-45.0); Lymphocytes % 1.5 % (15.3-44.8); MCV 73.9 fL (80-100); MPV 8.8 fL (7.6-11.3); RBC Red Blood Cell Count 3.36 M/uL (3.86-4.86)
[2022-03-18 05:41] LABS: Albumin 1.5 g/dL (3.4-5.0); Bilirubin Total 0.6 mg/dL (0.2-1.0); Magnesium 2.3 mg/dL (1.8-2.4); Protein, Total 5.5 g/dL (6.4-8.2)
[2022-03-18 05:46] LABS: Phosphorus 8.6 mg/dL (2.5-4.9); Potassium 5.6 mmol/L (3.5-5.1)
[2022-03-18] MEDS: METHYLPREDNISOLONE 40 MG INJ IV SCH ×2 (06:24→19:06)
[2022-03-18] MEDS ORDERED: ALBUMIN HUMAN 25% 200 ML IV ONE ×2 (09:06→10:00)
[2022-03-18] MEDS: VITAMIN D 5,000 UNIT CAP PO SCH (10:22)
[2022-03-18] MEDS: PANTOPRAZOLE 40 MG INJ IVP SCH ×2 (10:22→21:00)
--- NOTE | 2022-03-18 11:35 | P.PN ---
Date of Service: 03/18/22 Nephrology (S) Pt complains of abdominal belt pressing on stoma so I adjusted the position of belt slightly. Denies dyspnea, encouraged IS use, plans for HD today discussed Vitals, medications, blood work and imaging reviewed in the chart. General: NAD, non tachypnec HEENT: Atraumatic, NC present Neck: Supple, Rt EJ catheter, Lt SC dialysis catheter Respiratory: Normal respiratory effort, b/l air entry Cardiovascular: Regular rate/rhythm, no gallops Gastrointestinal: Surgical incision covered with dressing, colostomy, ANDREW drain, mild distention, Musculoskeletal: No clubbing, No contractures Ext: No sig LE edema Integumentary: No rashes, No cyanosis Neurological: Normal speech, awake, alert, non encephalopathic Conclusions/Impression: Stage III ARF with presenting Cr level > 4 mg/dl in the setting of hypotension, anemia, sepsis, other likely leading to ATN CKD IV underlying with proteinuria due to Lupus nephritis -HD today for metab clearance Hyperkalemia, hyperphosphatemia in the setting of renal failure -Will address with HD today Underlying chronic HTN -Sympathetic response from pain likely driving BP up in part, f/u post HD BP Acute on chronic anemia related to chronic illnesses including lupus, CKD, other -Had received several units of PRBC prev, MCV is low, likely iron deficient but with recent transfusions, did hold off on checking iron studies and plan for IV iron series later SLE with lupus nephritis -Monitor. Martin Joseph MD, [facility]
--- NOTE | 2022-03-18 12:19 | P.PN ---
Subjective Date of Service: 03/18/22 Chief Complaint: Abdominal pain Patient seen and examined at bedside, increase in WBC noted on most recent labs. Patient received a single dose of 750 Levaquin once yesterday, will continue 500 mg every 48 hours for double coverage for Pseudomonas/E. coli. Review of Systems 10-point ROS is otherwise unremarkable Physical Examination - Vital Signs Temperature: 97.5 F Blood Pressure: 171/101 Pulse: 73 Respirations: 16 Pulse Ox (%): 96 - Studies Laboratory Last Values WBC 4.7 K/uL (4.3-10.9) 03/09/22 06:19 RBC 2.98 M/uL (3.86-4.86) L 03/09/22 06:19 Hgb 6.4 g/dL (12.0-15.0) L* 03/09/22 06:19 Hct 20.5 % (36.0-45.0) L* 03/09/22 06:19 MCV 68.7 fL (80-100) L D 03/09/22 06:19 MCH 21.3 pg (27.0-35.0) L 03/09/22 06:19 MCHC 31.0 g/dL (32.0-36.0) L 03/09/22 06:19 RDW 20.5 % (12.1-15.2) H 03/09/22 06:19 Plt Count 242 K/uL (152-406) 03/09/22 06:19 MPV 7.8 fL (7.6-11.3) 03/09/22 06:19 Neutrophils % 91.9 % (41.7-73.7) H 03/09/22 06:19 Lymphocytes % 3.4 % (15.3-44.8) L 03/09/22 06:19 Monocytes % 3.6 % (3.3-12.3) 03/09/22 06:19 Eosinophils % 0.2 % (0-4.4) 03/09/22 06:19 Basophils % 0.9 % (0-1.3) 03/09/22 06:19 Absolute Neutrophils 4.4 K/uL (1.8-8.0) 03/09/22 06:19 Absolute Lymphocytes 0.2 K/uL (0.7-4.9) L 03/09/22 06:19 Absolute Monocytes 0.2 K/uL (0.1-1.3) 03/09/22 06:19 Absolute Eosinophils 0.0 K/uL (0-0.5) 03/09/22 06:19 Absolute Basophils 0.0 K/uL (0-0.5) 03/09/22 06:19 Platelet Estimate Adeq 03/09/22 06:19 Hypochromasia 1+ 03/09/22 06:19 Poikilocytosis 2+ 03/09/22 06:19 Anisocytosis 2+ 03/09/22 06:19 Microcytosis 2+ 03/09/22 06:19 Macrocytosis Slight 03/09/22 06:19 Tear Drop Cells 2+ 03/09/22 06:19 Ovalocytes 1+ 03/09/22 06:19 Schistocytes 1+ 03/09/22 06:19 Morphology Comment Noted (NOT SEEN) 03/09/22 06:19 pH 7.22 (7.35-7.45) L 03/09/22 09:40 pCO2 25.3 mmHG (35-45) L 03/09/22 09:40 pO2 99.9 mmHG (75-100) 03/09/22 09:40 HCO3 9.9 mmol/L (22-28) L 03/09/22 09:40 Base Excess -16.5 mmol/L 03/09/22 09:40 Oxyhemoglobin 94.2 % (94-97) 03/09/22 09:40 ABG O2 Sat (Measured) 96.8 % (92-98.5) 03/09/22 09:40 ABG Carboxyhemoglobin 1.1 % (0-1.5) 03/09/22 09:40 ABG Methemoglobin 1.6 % (0-1.5) H 03/09/22 09:40 Other Total Hgb 6.3 g/dl (12-18) L 03/09/22 09:40 Inspired O2 21.0 % 03/09/22 09:40 Sodium 138 mmol/L (136-145) 03/09/22 06:19 Potassium 4.5 mmol/L (3.5-5.1) 03/09/22 06:19 Chloride 111 mmol/L (98-107) H 03/09/22 06:19 Carbon Dioxide 11 mmol/L (21-32) L* 03/09/22 06:19 Anion Gap 20.5 mEq/L (5.0-15.0) H 03/09/22 06:19 BUN 79 mg/dL (7-18) H 03/09/22 06:19 Creatinine 6.88 mg/dL (0.55-1.3) H* 03/09/22 06:19 Est GFR (CKD-EPI) 8 ml/min (=/>90) L 03/09/22 06:19 Glucose 121 mg/dL (74-106) H 03/09/22 06:19 Calcium 8.4 mg/dL (8.5-10.1) L 03/09/22 06:19 Total Bilirubin 0.1 mg/dL (0.2-1.0) L 03/09/22 06:19 AST 6 U/L (15-37) L 03/09/22 06:19 ALT 21 U/L (12-78) 03/09/22 06:19 Alkaline Phosphatase 57 U/L (45-117) 03/09/22 06:19 Serum Total Protein 6.1 g/dL (6.4-8.2) L 03/09/22 06:19 Albumin 2.6 g/dL (3.4-5.0) L 03/09/22 06:19 Globulin 3.5 g/dL (2.3-3.5) 03/09/22 06:19 Albumin/Globulin Ratio 0.7 (1.1-1.8) L 03/09/22 06:19 Lipase 129 U/L (73-393) 03/09/22 06:19 Urine pH 5.5 (5.0-7.0) 03/09/22 06:39 Ur Specific [place] 1.025 (1.005-1.030) 03/09/22 06:39 Glucose (UA)(Auto) Negative (Negative) 03/09/22 06:39 Urine Ketones Negative (Negative) 03/09/22 06:39 Urine Blood Trace-lysed (Negative) H 03/09/22 06:39 Urine Nitrite Negative (Negative) 03/09/22 06:39 Ur Leukocyte Esterase Negative (Negative) 03/09/22 06:39 Urine RBC <5 /HPF (None Seen) 03/09/22 06:47 Urine WBC <5 /HPF (<5) 03/09/22 06:47 Ur Squamous Epith Cells <5 /HPF (None Seen) 03/09/22 06:47 Amorphous Crystals 3+ /HPF (None Seen) H 03/09/22 06:47 Urine Bacteria 20-50 /HPF (<20) H 03/09/22 06:47 Hyaline Casts 0-5 /LPF (None Seen) 03/09/22 06:47 Urine Total Protein 2+ (Negative) H 03/09/22 06:39 Ur Specific [place] (HCG) 1.025 (1.005-1.030) 03/09/22 06:42 Urine Test Neg (NEG) 03/09/22 06:42 SARS-CoV-2 Rap RNA(RT-PCR) Negative (NEGATIVE) 03/09/22 09:58 Smear Scan Ok (OK) 03/09/22 06:19 ABO/Rh O POSITIVE 03/09/22 07:41 Solid Phase Ab Screen Negative 03/09/22 07:41 Crossmatch See Detail 03/09/22 07:41 Assessment And Plan - Plan Physical exam: General: Oriented x3, Moderate distress HEENT: Atraumatic Neck: Supple Respiratory: Clear to auscultation bilaterally, Normal air movement Cardiovascular: No edema, Normal pulses, Regular rate/rhythm Capillary refill: <2 Seconds Gastrointestinal: Abdominal binder in place, left colostomy bag, ANDREW drain Musculoskeletal: No clubbing, No swelling, No contractures, No erythema Conclusions/Impression: Antibiotics Cefepime: 03/13current 03/17current Zosyn: Assessment/plan Gram-negative bacteremia secondary to abdominal perforation -Blood cultures grew E. coli, pansensitive. -Origin of intestinal perforation unclear, possible side effect of CellCept that patient was on secondary to lupus CellCept being held due to active infection -Patient currently on high-dose Solu-Medrol 40 mg every 8 hours -Had exploratory laparotomy on 03/14 which resulted in a left colectomy and end colostomy. ANDREW drain in place. NG tube placed during surgery,removed on 03/16. Wound culture from surgery growing Pseudomonas and E. coli both sensitive to cefepime. WBC increasing, Levaquin added to antibiotic regimen on 03/17 for double coverage. HERMILA secondary to lupus nephritis -Currently receiving dialysis -Continue prednisone, CellCept being held secondary to infection Metabolic acidosis Resolved Anemia Status post 3 units of packed red blood cells. Improving. Plan of care discussed with Dr. Villegas Thank you for consultation
--- NOTE | 2022-03-18 16:31 | EKG ---
Test Date: 2022-03-18 Test Time: 11:52:00 Cryptologic Technician: CEASAR MEASUREMENT RESULTS: Intervals: Rate: 76 [place]: 142 QRSD: 76 QT: 378 QTc: 425 [place]: P: 17 [place]: 142 QRS: 4 T: 49 INTERPRETIVE STATEMENTS: Normal sinus rhythm ST abnormality, possible digitalis effect Abnormal ECG Compared to ECG 03/16/2022 21:11:02 Myocardial infarct finding no longer present Myocardial infarct finding no longer present ST (T wave) deviation still present Electronically Signed On 03-18-22 16:30:19 CDT by Gage Christy
--- NOTE | 2022-03-18 17:05 | P.PN ---
Date of Service: 03/18/22 S: Patient doing well today. Just had some pain medicine so mildly sedated. O: Xeroform gauze removed from the incision today, wound looks good. Colostomy is viable. A: Surgically stable. P: Patient is doing well, from a surgical standpoint she continues to improve daily.
--- NOTE | 2022-03-18 17:52 | P.PN ---
Subjective Date of Service: 03/18/22 Chief Complaint: Abdominal pain Patient is tolerating soft diet. Colostomy with loose output No fever. Leukocytosis trended up. Patient was experiencing intermittent atrial fibrillation this morning. Physical Examination - Vital Signs Temperature: 97.3 F Blood Pressure: 167/105 Pulse: 79 Respirations: 20 Pulse Ox (%): 93 - Studies Laboratory Data (last 24 hrs) 03/18/22 04:38: Sodium 132 L, Potassium 5.6 H*, BUN 82 H D, Creatinine 4.91 H, Glucose 228 H, Phosphorus 8.6 H*, Magnesium 2.3, Total Bilirubin 0.6, AST 29, ALT 20, Alkaline Phosphatase 70 03/18/22 04:38: WBC 18.0 H D, Hgb 8.1 L, Hct 24.8 L, Plt Count 114 L Assessment And Plan - Current Problems (Diagnosis) (1) Acute worsening of stage 4 chronic kidney disease Current Visit: Yes Status: Acute (2) Metabolic acidosis Current Visit: Yes Status: Acute (3) Jejunitis Current Visit: Yes Status: Acute (4) Bowel perforation Current Visit: Yes Status: Acute (5) Anemia in chronic kidney disease Current Visit: Yes Status: Acute (6) Lupus nephritis Current Visit: No Status: Acute (7) SLE (systemic lupus erythematosus related syndrome) Current Visit: No Status: Acute - Plan Physical exam GEN: AOx3, not in acute distress. CV: Regular rate and rhythm, no edema Pulm: Clear to auscultation bilaterally. ABD: surgical dressing in place, ostomy with loose stool, no blood. ANDREW drain with serosanguineous fluid Neuro: Normal speech, normal affect Problem List perforated diverticula, s/o colectomy and ostomy acute worsening of CKD 4, now on dialysis Metabolic acidosis secondary to HERMILA anemia in chronic kidney disease h/o lupus nephritis SLE hyperphosphatemia initially concerned for jejunitis possibly secondary to mycophenolate therapy she then began to have worsening abdominal pain and bloating, repeat CT (03/13): significantly increased free air managed medically per general surgery recommendations Status post exploratory lap, colectomy, ostomy 03/14 03/15 - continued postoperatively with low BP, and eventually needed Levophed transiently. On IV steroid Patient tolerating soft diet. Renal function worsened, patient started dialysis 03/11, tolerated well Further hemodialysis per nephrology. kincaid placed evening of 03/09, patient had some mild retention, continue for strict i/o's s/p 3uPRBC. no bleeding monitor H&H, keep Hgb > 7 Blood cx: pansensitive e.coli, urine cx: negative abd cultures: pseudomonas ID consulted, zosyn changed to cefepime 03/13. repeat blood cultures without growth; Continue cefepime. ID added Levaquin due to leukocytosis trending up. Tunneled dialysis catheter per nephrology Continue to have intermittent atrial fibrillation after amiodarone drip was discontinued. Blood pressure is elevated. Cardiology-Dr. Christy recommended discontinuing amiodarone and use metoprolol for heart rate control Started metoprolol for blood pressure and for heart rate control Patient currently in sinus rhythm. Continue IV steroid for lupus nephritis. Increase activity as tolerated. Continue PT. Code: full Dispo: home. monitoring renal function set up for outpatient HD
[2022-03-18] MEDS: HYDROCODONE/APAP 7.5/325 MG TAB PO PRN (18:29)
[2022-03-18] MEDS: HYDRALAZINE HCL 20 MG/ML VIAL IV PRN (18:32)
[2022-03-18] MEDS: CEFEPIME 1 GM in NA CHLORIDE 0.9% 100 ML IV SCH (19:06)
[2022-03-18] MEDS: METOPROLOL TAR 25 MG TAB PO SCH (19:06)
[2022-03-18 23:06] LABS: Hematocrit 26.4 % (36.0-45.0); MCV 73.5 fL (80-100); MPV 8.3 fL (7.6-11.3); RBC Red Blood Cell Count 3.59 M/uL (3.86-4.86)
[2022-03-19] MEDS: HYDROMORPHONE HCL 0.5 MG/0.5 ML INJ IV PRN ×2 (02:11→08:00)
[2022-03-19] MEDS: METOPROLOL TAR 25 MG TAB PO SCH (03:19)
[2022-03-19] MEDS ORDERED: METOPROLOL TARTRATE 5 MG/5 ML INJ IV STA ×2 (06:00→07:14)
[2022-03-19 06:05] LABS: Absolute Lymphocytes (CBC) 0.3 K/uL (0.7-4.9); Hematocrit 22.4 % (36.0-45.0); Lymphocytes % 1.3 % (15.3-44.8); MCV 74.6 fL (80-100); MPV 10.4 fL (7.6-11.3)
[2022-03-19] MEDS: METHYLPREDNISOLONE 40 MG INJ IV SCH ×2 (06:13→17:55)
[2022-03-19 06:34] LABS: Albumin 1.5 g/dL (3.4-5.0); Bilirubin Total 0.6 mg/dL (0.2-1.0); Potassium 5.1 mmol/L (3.5-5.1); Protein, Total 5.2 g/dL (6.4-8.2)
[2022-03-19] MEDS ORDERED: METOPROLOL TAR 50 MG TAB PO ONE (07:14)
[2022-03-19 07:35] LABS: White Blood Cell Scan OK (OK)
[2022-03-19 07:36] LABS: Anisocytosis 1+; Blood Morphology Comment NOTED (NOT SEEN); Hypochromasia 1+; Platelet Estimate DECR
[2022-03-19] MEDS ORDERED: AMLODIPINE 5 MG TAB PO SCH (09:00)
[2022-03-19] MEDS ORDERED: HOME MED 1 EA UNK (Cholecalciferol (Vitamin D3) [Vitamin D3] 50 MCG Capsule) PO SCH (09:00)
[2022-03-19] MEDS: VITAMIN D 5,000 UNIT CAP PO SCH (09:00)
[2022-03-19] MEDS: PANTOPRAZOLE 40 MG INJ IVP SCH ×2 (09:42→21:03)
[2022-03-19 11:03] LABS: Specific Gravity 1.025 (1.005-1.030); Urine Bilirubin Negative (Negative); Urine Blood 1+ (Negative); Urine Clarity Clear (Clear); Urine Color Yellow (Yellow); Urine Glucose Negative (Negative); Urine Protein 3+ (Negative); Urine Urobilinogen 0.2 mg/dL (0.2-1.0); Urine pH 5.5 (5.0-7.0)
[2022-03-19 11:28] LABS: Urine Bacteria <20 /HPF (<20); Urine RBC <5 /HPF (None Seen)
[2022-03-19 11:29] LABS: Urine Mucus Slight /HPF (None Seen)
--- NOTE | 2022-03-19 11:37 | P.PN ---
Date of Service: 03/19/22 Nephrology (S) Pt moved to ICU overnight due to SVTs and some bleeding from surgical incision site, seen in ICU this AM, lethargic after reported Dilaudid administration prior to transfer. Receiving 1 unit PRBC Vitals, medications, blood work and imaging reviewed in the chart. General: NAD, non tachypnec HEENT: Atraumatic, NC present Neck: Supple, Rt IJ CVC Lt SC dialysis catheter Respiratory: Normal respiratory effort, b/l air entry Cardiovascular: Mildly tachy, reg Gastrointestinal: Surgical incision covered with dressing, colostomy, ANDREW drain, some distention Musculoskeletal: No clubbing, No contractures Ext: No sig LE edema Integumentary: No rashes, No cyanosis Neurological: Lethargic but opens eyes briefly, responds briefly, no tremors or myoclonus Labs reviewed in EMR Conclusions/Impression: Stage III ARF with presenting Cr level > 4 mg/dl in the setting of hypotension, anemia, sepsis, other likely leading to ATN CKD IV underlying with proteinuria due to Lupus nephritis -Given plans for CTA study with contrast exposure will repeat HD post study for metab clearance. Hyperkalemia, hyperphosphatemia in the setting of renal failure -Addressed with HD yesterday and planning to repeat HD today Underlying chronic HTN with relative systolic hypotension in the setting of acute loss anemia, narcotic pain administration, other -Suspend scheduled CCB dose, f/u post transfusion BP, bolus crystalloids/colloids as needed. Will limit UF on HD today Acute on chronic anemia related to surgical losses and chronic illnesses including lupus, CKD, other -Monitor for bleeding from surgical incision, hold any heparin on dialysis, if bleeding is recurrent, may consider Desmopressin for uremic plt dysfunction SLE with lupus nephritis -Monitor. Martin Joseph MD, [facility]
[2022-03-19] MEDS ORDERED: VANCOMYCIN 2 GM in NA CHLORIDE 0.9% 500 ML IVPB ONE (12:00)
[2022-03-19] MEDS ORDERED: AMPICILLIN/SULBACT 3 GM in NA CHLORIDE 0.9% 100 ML IV SCH (12:00)
--- NOTE | 2022-03-19 12:27 | RAD REPORT ---
EXAM DESCRIPTION: CTAbdomen Pelvis W Contrast - 03/19/2022 12:05 pm CLINICAL HISTORY: rule out wound dehiscence COMPARISON: CT ABD PELVIS W CONTRAST dated 01/23/2013; Chest Angio dated 03/19/2022; Abdomen Pelvis W o Contrast dated 03/13/2022; Abdomen Pelvis Wo Contrast dated 03/09/2022 TECHNIQUE: CT of the abdomen and pelvis was performed with contrast. All CT scans are performed using dose optimization technique as appropriate and may include automated exposure control or mA/KV adjustment according to patient size. FINDINGS: Lower chest: Dependent atelectasis. Mild cardiomegaly. Liver: No acute abnormality or suspicious lesions. Biliary: Cholelithiasis. Stomach: No significant focal abnormality. Duodenum: No significant focal abnormality. Pancreas: No significant abnormality. Spleen: No significant abnormality. Adrenal: No suspicious lesions. Kidney/ureter: No hydronephrosis. No renal calculi. Retroperitoneum: No retroperitoneal adenopathy. Vascular: No aneurysm. Bowel: Left lower quadrant colostomy. Jennifer's pouch.. Peritoneum: Trace free air. Surgical drain in the pelvis. Scattered small non loculated fluid pockets which are likely postsurgical. No evidence of leak. Bladder: Grossly unremarkable. Reproductive: IUD. Fibroids Bones: No acute fracture. Other: Mixed attenuation collection in the ventral abdominal wall subjacent to the incision measuring 10.7 x 4.8 cm. Some of the contrast along the cranial aspect is more hyperdense in could be related to active bleeding. Body wall edema. IMPRESSION: Subincisional mixed attenuation collection probably representing hematoma. Along the space systems operations craftsman nial aspect of the collection, the contrast is a more hyperdense and could reflect an area of active bleeding, probably venous. No findings to suggest a fistula to the bowel as a source of contrast. Discussed with Dr. Bryson by Dr. Medina at 1215 on 03/19/22
--- NOTE | 2022-03-19 12:29 | RAD REPORT ---
EXAM DESCRIPTION: CT - Chest Angio - 03/19/2022 12:05 pm CLINICAL HISTORY: Pulmonary embolus rule out COMPARISON: Chest For Pe Angio dated 12/06/2015; THORAX W CONTRAST dated 03/12/2015; CTANGIO CHEST FOR PE dated 01/18/2013 TECHNIQUE: Dynamically enhanced axial 3 mm thick images of the chest were obtained during administra tion of <100> mL Isovue 370 IV contrast. Coronal and oblique reconstruction images were generated and reviewed. Exam utilizes a protocol for optimal evaluation of pulmonary arterial tree. Maximum intensity projections 3D imaging was utilized All CT scans are performed using dose optimization technique as appropriate and may include automated exposure control or mA/KV adjustment according to patient size. FINDINGS: Chest Wall: Right IJ approach and left subclavian approach central venous catheters with t ips at the SVC. Lungs: No acute abnormality. Pleura: Small pleural effusions. Mediastinum/hal: No pathologic lymphadenopathy. Pulmonary arteries/Aorta: No filling defect identified. No aortic aneurysm. Heart: No significant pericardial effusion. Normal heart size. Upper abdomen: No acute abnormality. Bones: No acute abnormality. IMPRESSION: Negative for pulmonary embolism. Small pleural effusions which may be on the basis of ge neralized anasarca. No alveolar edema or evidence of pneumonia.
--- NOTE | 2022-03-19 13:03 | EKG ---
Test Date: 2022-03-18 Test Time: 23:56:23 Gang Investigator: EFRA MEASUREMENT RESULTS: Intervals: Rate: 194 [place]: QRSD: 64 QT: 234 QTc: 420 [place]: P: [place]: QRS: 11 T: 139 INTERPRETIVE STATEMENTS: Supraventricular tachycardia. Voltage criteria for left ventricular hypertrophy ST elevation, consider inferolateral injury or acute infarct ACUTE DC Consider right ventricular involvement in acute inferior infarct Abnormal ECG Compared to ECG 03/18/2022 22:16:47 ST (T wave) deviation now present Sinus tachycardia no longer present Ventricular premature complex(es) no longer present Atrial abnormality no longer present Myocardial infarct finding still present Myocardial infarct finding still present Electronically Signed On 03-19-22 13:02:31 CDT by Juan A Vargas
--- NOTE | 2022-03-19 13:04 | EKG ---
Test Date: 2022-03-18 Test Time: 22:16:47 Computer Science Teacher: EFRA MEASUREMENT RESULTS: Intervals: Rate: 108 [place]: 130 QRSD: 68 QT: 334 QTc: 447 [place]: P: 36 [place]: 130 QRS: -7 T: 15 INTERPRETIVE STATEMENTS: Sinus tachycardia with frequent premature ventricular complexes Right atrial enlargement Voltage criteria for left ventricular hypertrophy Inferior infarct, age undetermined Abnormal ECG Compared to ECG 03/18/2022 11:52:00 Ventricular premature complex(es) now present Atrial abnormality now present Left ventricular hypertrophy now present Myocardial infarct finding now present Sinus rhythm no longer present ST (T wave) deviation no longer present Electronically Signed On 03-19-22 13:03:34 CDT by Juan A Vargas
--- NOTE | 2022-03-19 13:07 | P.PN ---
Subjective Date of Service: 03/19/22 Chief Complaint: Abdominal pain Patient seen and examined at bedside, WBC continues to increase. Patient had episode of atrial fibrillation, as such was transferred back to the ICU. Review of Systems 10-point ROS is otherwise unremarkable Physical Examination - Vital Signs Temperature: 97.7 F Blood Pressure: 121/89 Pulse: 97 Respirations: 18 Pulse Ox (%): 100 - Studies Laboratory Last Values WBC 18.0 K/uL (4.3-10.9) H D 03/18/22 04:38 RBC 3.36 M/uL (3.86-4.86) L 03/18/22 04:38 Hgb 8.1 g/dL (12.0-15.0) L 03/18/22 04:38 Hct 24.8 % (36.0-45.0) L 03/18/22 04:38 MCV 73.9 fL (80-100) L 03/18/22 04:38 MCH 24.0 pg (27.0-35.0) L 03/18/22 04:38 MCHC 32.5 g/dL (32.0-36.0) 03/18/22 04:38 RDW 22.8 % (12.1-15.2) H 03/18/22 04:38 Plt Count 114 K/uL (152-406) L 03/18/22 04:38 MPV 8.8 fL (7.6-11.3) 03/18/22 04:38 Plt Distribution Width Cancelled 03/16/22 20:00 Neutrophils % 93.3 % (41.7-73.7) H 03/18/22 04:38 Lymphocytes % 1.5 % (15.3-44.8) L 03/18/22 04:38 Monocytes % 5.1 % (3.3-12.3) 03/18/22 04:38 Eosinophils % 0.0 % (0-4.4) 03/18/22 04:38 Basophils % 0.1 % (0-1.3) 03/18/22 04:38 Absolute Neutrophils 16.8 K/uL (1.8-8.0) H 03/18/22 04:38 Segmented Neutrophils 94 % (40-80) H 03/17/22 05:00 Band Neutrophils 1 % (0-1) 03/17/22 05:00 Absolute Lymphocytes 0.3 K/uL (0.7-4.9) L 03/18/22 04:38 Lymphocytes 4 % (15-42) L 03/17/22 05:00 Monocytes 1 % (0-10) 03/17/22 05:00 Absolute Monocytes 0.9 K/uL (0.1-1.3) 03/18/22 04:38 Eosinophils 0 % (0-3) 03/13/22 06:35 Absolute Eosinophils 0.0 K/uL (0-0.5) 03/18/22 04:38 Absolute Basophils 0.0 K/uL (0-0.5) 03/18/22 04:38 Toxic Granulation Noted 03/17/22 05:00 Dohle Bodies Present 03/17/22 05:00 Platelet Estimate Decr 03/17/22 05:00 Giant Platelets Few 03/16/22 04:30 Polychromasia 1+ 03/14/22 06:08 Hypochromasia 1+ 03/17/22 05:00 Poikilocytosis 2+ 03/17/22 05:00 Anisocytosis 1+ 03/17/22 05:00 Microcytosis 1+ 03/17/22 05:00 Macrocytosis 2+ 03/13/22 06:35 Spherocytes Few 03/13/22 06:35 Tear Drop Cells 1+ 03/17/22 05:00 Ovalocytes 1+ 03/13/22 06:35 Schistocytes Few 03/17/22 05:00 Morphology Comment Noted (NOT SEEN) 03/17/22 05:00 pH 7.36 (7.35-7.45) 03/10/22 08:52 pCO2 25.9 mmHG (35-45) L 03/10/22 08:52 pO2 95.6 mmHG (75-100) 03/10/22 08:52 HCO3 14.1 mmol/L (22-28) L 03/10/22 08:52 Base Excess -10.3 mmol/L 03/10/22 08:52 Oxyhemoglobin 94.8 % (94-97) 03/10/22 08:52 ABG O2 Sat (Measured) 97.3 % (92-98.5) 03/10/22 08:52 ABG Carboxyhemoglobin 1.3 % (0-1.5) 03/10/22 08:52 ABG Methemoglobin 1.3 % (0-1.5) 03/10/22 08:52 Other Total Hgb 7.6 g/dl (12-18) L 03/10/22 08:52 Inspired O2 21.0 % 03/10/22 08:52 Sodium 132 mmol/L (136-145) L 03/18/22 04:38 Potassium 5.6 mmol/L (3.5-5.1) H* 03/18/22 04:38 Chloride 99 mmol/L (98-107) 03/18/22 04:38 Carbon Dioxide 20 mmol/L (21-32) L 03/18/22 04:38 Anion Gap 18.6 mEq/L (5.0-15.0) H 03/18/22 04:38 BUN 82 mg/dL (7-18) H D 03/18/22 04:38 Creatinine 4.91 mg/dL (0.55-1.3) H 03/18/22 04:38 Est GFR (CKD-EPI) 11 ml/min (=/>90) L 03/18/22 04:38 Glucose 228 mg/dL (74-106) H 03/18/22 04:38 POC Glucose 197 mg/dL (65-120) H 03/10/22 15:17 Hemoglobin A1c 6.1 % (4.2-6.3) 03/11/22 04:30 Lactic Acid 1.1 mmol/L (0.4-2.0) 03/14/22 23:06 Uric Acid 14.1 mg/dL (2.6-6.0) H D 03/10/22 04:23 Calcium 8.5 mg/dL (8.5-10.1) 03/18/22 04:38 Phosphorus 8.6 mg/dL (2.5-4.9) H* 03/18/22 04:38 Magnesium 2.3 mg/dL (1.8-2.4) 03/18/22 04:38 Total Bilirubin 0.6 mg/dL (0.2-1.0) 03/18/22 04:38 AST 29 U/L (15-37) 03/18/22 04:38 ALT 20 U/L (12-78) 03/18/22 04:38 Alkaline Phosphatase 70 U/L (45-117) 03/18/22 04:38 Serum Total Protein 5.5 g/dL (6.4-8.2) L 03/18/22 04:38 Albumin 1.5 g/dL (3.4-5.0) L 03/18/22 04:38 Globulin 4.0 g/dL (2.3-3.5) H 03/18/22 04:38 Albumin/Globulin Ratio 0.4 (1.1-1.8) L 03/18/22 04:38 Lipase 129 U/L (73-393) 03/09/22 06:19 Urine Color Yellow (Yellow) 03/10/22 00:06 Urine Clarity Clear (Clear) 03/10/22 00:06 Urine pH 5.5 (5.0-7.0) 03/10/22 00:06 Ur Specific [place] 1.025 (1.005-1.030) 03/10/22 00:06 Glucose (UA)(Auto) Negative (Negative) 03/10/22 00:06 Urine Ketones Negative (Negative) 03/10/22 00:06 Urine Blood Trace-lysed (Negative) H 03/10/22 00:06 Urine Nitrite Negative (Negative) 03/10/22 00:06 Urine Bilirubin Negative (Negative) 03/10/22 00:06 Urine Urobilinogen 0.2 mg/dL (0.2-1.0) 03/10/22 00:06 Ur Leukocyte Esterase Negative (Negative) 03/10/22 00:06 Urine RBC <5 /HPF (None Seen) 03/10/22 00:06 Urine Red Cell Clumps Cancelled 03/09/22 23:20 Urine WBC <5 /HPF (<5) 03/10/22 00:06 Urine WBC Clumps Cancelled 03/09/22 23:20 Ur Squamous Epith Cells <5 /HPF (None Seen) 03/10/22 00:06 U Non-Squamous Epi Cells <5 /HPF (None Seen) 03/10/22 00:06 Ur Transition Epith Cell Cancelled 03/09/22 23:20 Ur Renal Epithelial Cell Cancelled 03/09/22 23:20 Calcium Carbonate Cryst Cancelled 03/09/22 23:20 Calcium Oxalate Crystal Cancelled 03/09/22 23:20 Leucine Crystals Cancelled 03/09/22 23:20 Cystine Crystals Cancelled 03/09/22 23:20 Uric Acid Crystals Cancelled 03/09/22 23:20 Triple Phos Crystals Cancelled 03/09/22 23:20 Tyrosine Crystals Cancelled 03/09/22 23:20 Unidentified Crystals Cancelled 03/09/22 23:20 Amorphous Crystals 3+ /HPF (None Seen) H 03/10/22 00:06 Urine Bacteria <20 /HPF (<20) 03/10/22 00:06 Hyaline Casts Cancelled 03/09/22 23:20 Granular Casts Cancelled 03/09/22 23:20 Waxy Casts Cancelled 03/09/22 23:20 RBC Casts Cancelled 03/09/22 23:20 WBC Casts Cancelled 03/09/22 23:20 Urine Mucus Cancelled 03/09/22 23:20 Urine Trichomonas Cancelled 03/09/22 23:20 Ur Yeast w Hyphae Cancelled 03/09/22 23:20 Urine Yeast (Budding) Cancelled 03/09/22 23:20 Urine Sperm Cancelled 03/09/22 23:20 Ur Oval Fat Bodies Cancelled 03/09/22 23:20 Ur Random Sodium 32 mmol/L (27-287) 03/09/22 23:20 Ur Random Potassium 39.0 mmol/L (20-40) 03/09/22 23:20 Urine Creatinine 140.0 mg/dL (20-320) 03/09/22 23:20 Urine Total Protein 2+ (Negative) H 03/10/22 00:06 Urine Ascorbic Acid Cancelled 03/09/22 23:20 Urine Fat Cancelled 03/09/22 23:20 Ur Specific [place] (HCG) 1.025 (1.005-1.030) 03/09/22 06:42 Urine Test Neg (NEG) 03/09/22 06:42 Double Strand DNA Ab 3 IU/mL (<=4) 03/10/22 04:23 Complement C3 105 mg/dL (83-193) 03/10/22 04:23 Complement C4 30 mg/dL (15-57) 03/10/22 04:23 C. difficile Ag & Toxin Ag neg : tox neg (NEG : NEG) 03/11/22 19:15 Hep Bs Antigen Cancelled 03/10/22 04:23 Hep Bs Ag Confirmation Cancelled 03/10/22 04:23 Hep Bs Antibody Cancelled 03/13/22 20:04 Hep Bs Antibody, Quant Cancelled 03/13/22 20:04 Hep B Core Total Ab Cancelled 03/10/22 04:23 Hep B Core IgM Ab Cancelled 03/13/22 20:04 SARS-CoV-2 Rap RNA(RT-PCR) Negative (NEGATIVE) 03/09/22 09:58 Smear Scan Ok (OK) 03/14/22 06:08 Miscellaneous Test Sent 03/13/22 20:04 ABO/Rh O POSITIVE 03/16/22 07:25 Solid Phase Ab Screen Negative 03/16/22 07:25 Crossmatch See Detail 03/16/22 07:25 BBK History Checked Cancelled 03/11/22 Unknown Microbiology Data (last 24 hrs): 03/14/22 13:40 Wound - Abdomen Gram Stain - Final 03/14/22 13:40 Wound - Abdomen Anaerobic Culture - Final 03/18/22 13:01 Blood - Blood Anaerobic Blood Culture - Final 03/13/22 23:15 Blood - Blood Aerobic Blood Culture - Final No growth in 5 days. 03/13/22 23:15 Blood - Blood Anaerobic Blood Culture - Final No growth in 5 days. 03/13/22 23:22 Blood - Blood Aerobic Blood Culture - Final No growth in 5 days. 03/13/22 23:22 Blood - Blood Anaerobic Blood Culture - Final No growth in 5 days. Assessment And Plan - Plan Physical exam: General: Oriented x3, Moderate distress HEENT: Atraumatic Neck: Supple Respiratory: Clear to auscultation bilaterally, Normal air movement Cardiovascular: No edema, Normal pulses, Regular rate/rhythm Capillary refill: <2 Seconds Gastrointestinal: Abdominal binder in place, left colostomy bag, ANDREW drain Musculoskeletal: No clubbing, No swelling, No contractures, No erythema Conclusions/Impression: Antibiotics Vancomycin: 03/19current Meropenem: 03/11current Cefepime: Levaquin: Zosyn: Assessment/plan Gram-negative bacteremia secondary to abdominal perforation -Blood cultures grew E. coli, pansensitive. Source of infection secondary to abdominal perforation. -Abdominal CT obtained on 03/09 demonstrated minimal amount of extraluminal air adjacent to the proximal jejunum concerning for abdominal perforation. General surgery was consulted, who recommended medical management. Patient had initial improvement, diet was advanced slowly. However she then began to have increased abdominal bloating/pain. Repeat CT abdomen pelvis performed on 03/13 showed significant increase in free air. Had exploratory laparotomy on 03/14 which resulted in a left colectomy and end colostomy. ANDREW drain in place. NG tube placed during surgery,removed on 03/16. Wound culture from surgery growing Pseudomonas and E. coli both sensitive to cefepime. Patient continued to have increase in WBC, as such Levaquin was added to antibiotic regimen on 03/17 for double coverage. -Antibiotics adjusted to broad-spectrum empiric coverage with vancomycin and meropenem on 03/19 secondary to increasing WBC and episode of atrial fibrillation. -Origin of intestinal perforation unclear, possible side effect of CellCept that patient was on secondary to lupus CellCept being held due to active infection -Patient currently on high-dose Solu-Medrol 40 mg every 8 hours HERMILA secondary to lupus nephritis -Currently receiving dialysis -Continue prednisone, CellCept being held secondary to infection Metabolic acidosis Resolved Anemia Status post 3 units of packed red blood cells. Improving. Plan of care discussed with Dr. Villegas Thank you for consultation
[2022-03-19] MEDS ORDERED: LIDOCAINE 1% MPF 5 ML VIAL ONE (13:31)
[2022-03-19] MEDS ORDERED: FENTANYL CITR 100 MCG/2 ML ONE ×2 (13:31→14:53)
[2022-03-19] MEDS ORDERED: ROCURONIUM 50 MG/5 ML VIAL IV ONE (13:31)
[2022-03-19] MEDS ORDERED: propofoL 200 MG/20 ML VIAL IV ONE (13:31)
[2022-03-19] MEDS ORDERED: MIDAZOLAM HCL 2 MG/2 ML INJ ONE (13:31)
[2022-03-19] MEDS ORDERED: NA CHLORIDE 0.9% 0 ML ONE (13:39)
[2022-03-19] MEDS ORDERED: NA CIT/CITRIC AC 30 ML ORAL UDC ONE (13:44)
[2022-03-19] MEDS ORDERED: NA CHLORIDE 0.9% 1,000 ML ONE (13:45)
--- NOTE | 2022-03-19 13:49 | P.PN ---
Subjective Date of Service: 03/19/22 Chief Complaint: Abdominal pain Patient bled from the incision wound last night. She has also been experiencing intermittent sinus tachycardia. She reports more pain. Leukocytosis continue to trend Colostomy with loose output No fever. Physical Examination - Vital Signs Temperature: 97.7 F Blood Pressure: 121/89 Pulse: 97 Respirations: 18 Pulse Ox (%): 100 - Studies Microbiology Data (last 24 hrs): 03/18/22 13:01 Blood - Blood Anaerobic Blood Culture - Final 03/14/22 13:40 Wound - Abdomen Gram Stain - Final 03/14/22 13:40 Wound - Abdomen Anaerobic Culture - Final 03/13/22 23:15 Blood - Blood Aerobic Blood Culture - Final No growth in 5 days. 03/13/22 23:15 Blood - Blood Anaerobic Blood Culture - Final No growth in 5 days. 03/13/22 23:22 Blood - Blood Aerobic Blood Culture - Final No growth in 5 days. 03/13/22 23:22 Blood - Blood Anaerobic Blood Culture - Final No growth in 5 days. Assessment And Plan - Current Problems (Diagnosis) (1) Acute worsening of stage 4 chronic kidney disease Current Visit: Yes Status: Acute (2) Metabolic acidosis Current Visit: Yes Status: Acute (3) Jejunitis Current Visit: Yes Status: Acute (4) Bowel perforation Current Visit: Yes Status: Acute (5) Anemia in chronic kidney disease Current Visit: Yes Status: Acute (6) Lupus nephritis Current Visit: No Status: Acute (7) SLE (systemic lupus erythematosus related syndrome) Current Visit: No Status: Acute - Plan Physical exam GEN: AOx3, not in acute distress. CV: Regular rate and rhythm, no edema Pulm: Clear to auscultation bilaterally. ABD: surgical dressing in place, dressing was changed twice last night due to bleeding. Ostomy with loose stool, no blood. ANDREW drain with serosanguineous fluid Neuro: Normal speech, normal affect Problem List perforated diverticula, s/o colectomy and ostomy acute worsening of CKD 4, now on dialysis Metabolic acidosis secondary to HERMILA anemia in chronic kidney disease h/o lupus nephritis SLE hyperphosphatemia initially concerned for jejunitis possibly secondary to mycophenolate therapy she then began to have worsening abdominal pain and bloating, repeat CT (03/13): significantly increased free air managed medically per general surgery recommendations Status post exploratory lap, colectomy, ostomy 03/14 03/15 - continued postoperatively with low BP, and eventually needed Levophed tra nsiently. On IV steroid Patient tolerating soft diet. Renal function worsened, patient started dialysis 03/11, tolerated well Further hemodialysis per nephrology. kincaid placed evening of 03/09, patient had some mild retention, continue for strict i/o's s/p 3uPRBC. no bleeding. 1 more units PRBC given for symptomatic anemia and recent bleed. CT abdomen and pelvis done today showed some incisional bleed/hematoma Dr. Bryson planning to take her to surgery to evacuate the hematoma today. monitor H&H, keep Hgb > 7 Blood cx: pansensitive e.coli, urine cx: negative abd cultures: pseudomonas ID consulted, zosyn changed to cefepime 03/13. repeat blood cultures without growth; Continue cefepime. ID added Levaquin due to leukocytosis trending up. Tunneled dialysis catheter per nephrology Continue to have intermittent atrial fibrillation after amiodarone drip was discontinued. Patient currently experiencing intermittent sinus tachycardia. Blood pressure is elevated. Cardiology-Dr. Christy recommended discontinuing amiodarone and use metoprolol for heart rate control Started metoprolol for blood pressure and for heart rate control. IV metoprolol as needed for BP spikes and heart rate greater than 140. Patient currently in sinus rhythm. Continue IV steroid for lupus nephritis. Continue PT. Code: full Dispo: home. monitoring renal function set up for outpatient HD
[2022-03-19] MEDS ORDERED: Phenylephrine HCl 10 MG/ML 1 ML VIAL ONE (14:24)
[2022-03-19] MEDS ORDERED: NS 0.9% VIAL 10 ML ONE (14:24)
[2022-03-19] MEDS ORDERED: SUCCINYLCHOLINE 20 MG/ML (10 ML) IV ONE (15:00)
[2022-03-19] MEDS ORDERED: MORPHINE 10 MG/ML VIAL ONE (15:09)
--- NOTE | 2022-03-19 15:13 | P.OP ---
Preoperative diagnosis: Wound hematoma Postoperative diagnosis: The same with small dehiscence Primary procedure: Exploration of wound Secondary procedure: Evacuation of hematoma Other procedure(s): Reinforcement of upper edge of incision Anesthesia: General Estimated blood loss: Sent 10 cc Specimen: Hematoma that was removed was not sent Operative Technique: The patient brought the operating room and placed supine on the table. After the induction of adequate general endotracheal anesthesia, attention was turned towards the anterior abdominal wall. The colostomy appliance was removed. The area was now covered with a OpSite. The abdominal wall was now prepped with a Betadine solution. The area was now dried. An Ioban drape was placed over the wound, the staple line being protected by the suction catheter tubing. The drapes were now applied. Attention was turned towards the suction catheter under the Ioban. Using a 10 blade we will cut down on both sides of the drain, elevating it, so there is to bring the Ioban right up to the edges of the skin donnie. The skin donnie were now removed with staple remover's. In the middle part of the wound just around the umbilicus where the patient had had a previous described umbilical hernia, there was a collection of old blood and fibrin. There was also some watery drainage in that area from liquefication of the hematoma. This was removed from the wound. The fascia was inspected. It was found to be intact. Attention was turned towards the upper margin of the wound. On the top inch the area is thin friable and you can see where the sutures had literally pulled the tissue apart. This was reinforced with interrupted sutures of 2-0 nylon to bring the fascia back together again. One of the sutures was sutured to our previously placed running suture to maintain continuity of our suture line. The area was then irrigated with a saline solution. The skin was loosely approximated. In the lower portion of the wound we once again placed iodoform gauze between the skin edges. The incision was carefully protected as we turned ourselves towards the colostomy. The OpSite was taken off of this area. We could see that the colostomy was clean and viable, still has a lot of edema of the actual mucosa but is in good shape. The edges were once again retracted to the skin as it had because of the edema in the tissue from the skin edge to the actual serosa of the colon. This having been redone the appliance was once again placed over the colostomy in a bag applied. The attention was turned back towards the incision. It was injected with 0.25% Marcaine for its full length on both the left and right sides. A sterile dressing was now applied. At the end of the procedure she was stable and sent to the recovery room. Needle sponge instrument count were correct. Complications: None Drain(s): ANDREW drain Transferred to: ICU Condition: Good
[2022-03-19 16:13] LABS: Hematocrit 23.4 % (36.0-45.0)
[2022-03-19 16:29] LABS: Potassium 5.6 mmol/L (3.5-5.1)
[2022-03-19] MEDS: Meropenem 500 MG in NA CHLORIDE 0.9% 100 ML IV SCH (17:53)
[2022-03-19] MEDS: METOPROLOL TAR 50 MG TAB PO SCH (17:54)
[2022-03-19] MEDS ORDERED: levoFLOXacin 500 MG TAB PO SCH (18:00)
[2022-03-20 00:35] LABS: Hematocrit 27.7 % (36.0-45.0)
[2022-03-20] MEDS: HYDROMORPHONE HCL 0.5 MG/0.5 ML INJ IV PRN ×3 (04:35→20:46)
[2022-03-20] MEDS: METOPROLOL TAR 50 MG TAB PO SCH ×2 (05:38→17:14)
[2022-03-20] MEDS: METHYLPREDNISOLONE 40 MG INJ IV SCH ×2 (05:38→17:16)
[2022-03-20 05:57] LABS: Absolute Lymphocytes (CBC) 0.5 K/uL (0.7-4.9); Hematocrit 24.7 % (36.0-45.0); Lymphocytes % 2.4 % (15.3-44.8); MCV 80.9 fL (80-100); MPV 10.3 fL (7.6-11.3); RBC Red Blood Cell Count 3.05 M/uL (3.86-4.86)
[2022-03-20 06:16] LABS: Albumin 1.6 g/dL (3.4-5.0); Bilirubin Total 0.5 mg/dL (0.2-1.0); Magnesium 2.1 mg/dL (1.8-2.4); Potassium 4.4 mmol/L (3.5-5.1); Protein, Total 4.6 g/dL (6.4-8.2)
[2022-03-20] MEDS: PANTOPRAZOLE 40 MG INJ IVP SCH ×2 (07:57→20:42)
[2022-03-20] MEDS: VITAMIN D 5,000 UNIT CAP PO SCH (07:57)
--- NOTE | 2022-03-20 11:58 | P.PN ---
Date of Service: 03/20/22 Nephrology (S) Pt taken to surgery yesterday for hematoma evac, transfused yesterday, dialyzed again yesterday, in hemodynamically stable condition this AM. Abd pain controlled, no nausea when seen. Vitals, medications, blood work and imaging reviewed in the chart. General: NAD, non tachypnec HEENT: Atraumatic, NC present Neck: Supple, Rt IJ CVC Lt SC dialysis catheter Respiratory: Normal respiratory effort, b/l air entry Cardiovascular: Mildly tachy, reg Gastrointestinal: Surgical incision covered with dressing, colostomy, ANDREW drain, some distention Musculoskeletal: No clubbing, No contractures Ext: No sig LE edema Integumentary: No rashes, No cyanosis Neurological: Awake, alert, non encephalopathic, no tremors or myoclonus Labs reviewed in EMR Conclusions/Impression: Stage III ARF with presenting Cr level > 4 mg/dl in the setting of hypotension, anemia, sepsis, other likely leading to ATN CKD IV underlying with proteinuria due to Lupus nephritis -Given plans for CTA study with contrast exposure yesterday, did repeat HD post study and surgery for metab clearance. Metab profile acceptable this AM, pt remains oliguric, next HD tmrw Hyperkalemia, hyperphosphatemia in the setting of renal failure -Addressed with HD Underlying chronic HTN with relative systolic hypotension in the setting of acute loss anemia, narcotic pain administration, other -Suspended scheduled CCB dose, current BP acceptable, bolus crystalloids/colloids as needed. Acute on chronic anemia related to surgical losses and chronic illnesses including lupus, CKD, other -Monitor for bleeding from surgical incision, hold any heparin on dialysis, if bleeding is recurrent, may consider Desmopressin for uremic plt dysfunction SLE with lupus nephritis -Monitor. Martin Joseph MD, [facility]
[2022-03-20 13:03] LABS: Anisocytosis 1+; Blood Morphology Comment NOTED (NOT SEEN); Platelet Estimate DECR
[2022-03-20 13:04] LABS: Hypochromasia 1+; Polychromasia SLIGHT
--- NOTE | 2022-03-20 13:24 | P.PN ---
Subjective Date of Service: 03/20/22 Chief Complaint: Abdominal pain Patient seen and examined at bedside, had bleeding from incision last night. CT scan showed a hematoma with active venous bleed. Review of Systems 10-point ROS is otherwise unremarkable Physical Examination - Vital Signs Temperature: 97 F Blood Pressure: 114/80 Pulse: 92 Respirations: 17 Pulse Ox (%): 99 - Studies Laboratory Last Values WBC 4.7 K/uL (4.3-10.9) 03/09/22 06:19 RBC 2.98 M/uL (3.86-4.86) L 03/09/22 06:19 Hgb 6.4 g/dL (12.0-15.0) L* 03/09/22 06:19 Hct 20.5 % (36.0-45.0) L* 03/09/22 06:19 MCV 68.7 fL (80-100) L D 03/09/22 06:19 MCH 21.3 pg (27.0-35.0) L 03/09/22 06:19 MCHC 31.0 g/dL (32.0-36.0) L 03/09/22 06:19 RDW 20.5 % (12.1-15.2) H 03/09/22 06:19 Plt Count 242 K/uL (152-406) 03/09/22 06:19 MPV 7.8 fL (7.6-11.3) 03/09/22 06:19 Neutrophils % 91.9 % (41.7-73.7) H 03/09/22 06:19 Lymphocytes % 3.4 % (15.3-44.8) L 03/09/22 06:19 Monocytes % 3.6 % (3.3-12.3) 03/09/22 06:19 Eosinophils % 0.2 % (0-4.4) 03/09/22 06:19 Basophils % 0.9 % (0-1.3) 03/09/22 06:19 Absolute Neutrophils 4.4 K/uL (1.8-8.0) 03/09/22 06:19 Absolute Lymphocytes 0.2 K/uL (0.7-4.9) L 03/09/22 06:19 Absolute Monocytes 0.2 K/uL (0.1-1.3) 03/09/22 06:19 Absolute Eosinophils 0.0 K/uL (0-0.5) 03/09/22 06:19 Absolute Basophils 0.0 K/uL (0-0.5) 03/09/22 06:19 Platelet Estimate Adeq 03/09/22 06:19 Hypochromasia 1+ 03/09/22 06:19 Poikilocytosis 2+ 03/09/22 06:19 Anisocytosis 2+ 03/09/22 06:19 Microcytosis 2+ 03/09/22 06:19 Macrocytosis Slight 03/09/22 06:19 Tear Drop Cells 2+ 03/09/22 06:19 Ovalocytes 1+ 03/09/22 06:19 Schistocytes 1+ 03/09/22 06:19 Morphology Comment Noted (NOT SEEN) 03/09/22 06:19 pH 7.22 (7.35-7.45) L 03/09/22 09:40 pCO2 25.3 mmHG (35-45) L 03/09/22 09:40 pO2 99.9 mmHG (75-100) 03/09/22 09:40 HCO3 9.9 mmol/L (22-28) L 03/09/22 09:40 Base Excess -16.5 mmol/L 03/09/22 09:40 Oxyhemoglobin 94.2 % (94-97) 03/09/22 09:40 ABG O2 Sat (Measured) 96.8 % (92-98.5) 03/09/22 09:40 ABG Carboxyhemoglobin 1.1 % (0-1.5) 03/09/22 09:40 ABG Methemoglobin 1.6 % (0-1.5) H 03/09/22 09:40 Other Total Hgb 6.3 g/dl (12-18) L 03/09/22 09:40 Inspired O2 21.0 % 03/09/22 09:40 Sodium 138 mmol/L (136-145) 03/09/22 06:19 Potassium 4.5 mmol/L (3.5-5.1) 03/09/22 06:19 Chloride 111 mmol/L (98-107) H 03/09/22 06:19 Carbon Dioxide 11 mmol/L (21-32) L* 03/09/22 06:19 Anion Gap 20.5 mEq/L (5.0-15.0) H 03/09/22 06:19 BUN 79 mg/dL (7-18) H 03/09/22 06:19 Creatinine 6.88 mg/dL (0.55-1.3) H* 03/09/22 06:19 Est GFR (CKD-EPI) 8 ml/min (=/>90) L 03/09/22 06:19 Glucose 121 mg/dL (74-106) H 03/09/22 06:19 Calcium 8.4 mg/dL (8.5-10.1) L 03/09/22 06:19 Total Bilirubin 0.1 mg/dL (0.2-1.0) L 03/09/22 06:19 AST 6 U/L (15-37) L 03/09/22 06:19 ALT 21 U/L (12-78) 03/09/22 06:19 Alkaline Phosphatase 57 U/L (45-117) 03/09/22 06:19 Serum Total Protein 6.1 g/dL (6.4-8.2) L 03/09/22 06:19 Albumin 2.6 g/dL (3.4-5.0) L 03/09/22 06:19 Globulin 3.5 g/dL (2.3-3.5) 03/09/22 06:19 Albumin/Globulin Ratio 0.7 (1.1-1.8) L 03/09/22 06:19 Lipase 129 U/L (73-393) 03/09/22 06:19 Urine pH 5.5 (5.0-7.0) 03/09/22 06:39 Ur Specific Donora 1.025 (1.005-1.030) 03/09/22 06:39 Glucose (UA)(Auto) Negative (Negative) 03/09/22 06:39 Urine Ketones Negative (Negative) 03/09/22 06:39 Urine Blood Trace-lysed (Negative) H 03/09/22 06:39 Urine Nitrite Negative (Negative) 03/09/22 06:39 Ur Leukocyte Esterase Negative (Negative) 03/09/22 06:39 Urine RBC <5 /HPF (None Seen) 03/09/22 06:47 Urine WBC <5 /HPF (<5) 03/09/22 06:47 Ur Squamous Epith Cells <5 /HPF (None Seen) 03/09/22 06:47 Amorphous Crystals 3+ /HPF (None Seen) H 03/09/22 06:47 Urine Bacteria 20-50 /HPF (<20) H 03/09/22 06:47 Hyaline Casts 0-5 /LPF (None Seen) 03/09/22 06:47 Urine Total Protein 2+ (Negative) H 03/09/22 06:39 Ur Specific Donora (HCG) 1.025 (1.005-1.030) 03/09/22 06:42 Urine Test Neg (NEG) 03/09/22 06:42 SARS-CoV-2 Rap RNA(RT-PCR) Negative (NEGATIVE) 03/09/22 09:58 Smear Scan Ok (OK) 03/09/22 06:19 ABO/Rh O POSITIVE 03/09/22 07:41 Solid Phase Ab Screen Negative 03/09/22 07:41 Crossmatch See Detail 03/09/22 07:41 Assessment And Plan - Plan Physical exam: General: Oriented x3, Moderate distress HEENT: Atraumatic Neck: Supple Respiratory: Clear to auscultation bilaterally, Normal air movement Cardiovascular: No edema, Normal pulses, Regular rate/rhythm Capillary refill: <2 Seconds Gastrointestinal: Abdominal binder in place, left colostomy bag, ANDREW drain Musculoskeletal: No clubbing, No swelling, No contractures, No erythema Conclusions/Impression: Antibiotics Vancomycin: 03/19current Meropenem: 03/11current Cefepime: Levaquin: Zosyn: Assessment/plan Gram-negative bacteremia secondary to abdominal perforation -Blood cultures grew E. coli, pansensitive. Source of infection secondary to abdominal perforation. -Abdominal CT obtained on 03/09 demonstrated minimal amount of extraluminal air adjacent to the proximal jejunum concerning for abdominal perforation. General surgery was consulted, who recommended medical management. Patient had initial improvement, diet was advanced slowly. However she then began to have increased abdominal bloating/pain. Repeat CT abdomen pelvis performed on 03/13 showed significant increase in free air. Had exploratory laparotomy on 03/14 which resulted in a left colectomy and end colostomy. ANDREW drain in place. NG tube placed during surgery,removed on 03/16. Wound culture from surgery growing Pseudomonas and E. coli both sensitive to cefepime. Patient continued to have increase in WBC, as such Levaquin was added to antibiotic regimen on 03/17 for double coverage. -Patient was bleeding from incision on 03/19. CT abdomen showed hematoma with concern or active venous bleed. Patient has taken to the OR on 03/19 for hematoma evacuation. ANDREW drain still placed. Recovering well in the ICU. -Antibiotics adjusted to broad-spectrum empiric coverage with vancomycin and meropenem on 03/19 secondary to increasing WBC and episode of atrial fibrilla tion.Vanco trough elevated, being held until trough is less than 19. -Origin of intestinal perforation unclear, possible side effect of CellCept that patient was on secondary to lupus CellCept being held due to active infection -Patient currently on high-dose Solu-Medrol 40 mg every 8 hours HERMILA secondary to lupus nephritis -Currently receiving dialysis -Continue prednisone, CellCept being held secondary to infection Metabolic acidosis Resolved Anemia Status post 3 units of packed red blood cells. Improving. Plan of care discussed with Dr. Villegas Thank you for consultation
--- NOTE | 2022-03-20 13:48 | P.PN ---
Subjective Date of Service: 03/20/22 Chief Complaint: Abdominal pain Patient states she feels better today. She is tolerating her diet. Heart rate has been stable. She reports less pain. No fever. Physical Examination - Vital Signs Temperature: 97 F Blood Pressure: 114/80 Pulse: 92 Respirations: 17 Pulse Ox (%): 99 Assessment And Plan - Current Problems (Diagnosis) (1) Acute worsening of stage 4 chronic kidney disease Current Visit: Yes Status: Acute (2) Metabolic acidosis Current Visit: Yes Status: Acute (3) Jejunitis Current Visit: Yes Status: Acute (4) Bowel perforation Current Visit: Yes Status: Acute (5) Anemia in chronic kidney disease Current Visit: Yes Status: Acute (6) Lupus nephritis Current Visit: No Status: Acute (7) SLE (systemic lupus erythematosus related syndrome) Current Visit: No Status: Acute - Plan Physical exam GEN: AOx3, not in acute distress. CV: Regular rate and rhythm, no edema Pulm: Clear to auscultation bilaterally. ABD: surgical dressing in place, Ostomy with loose stool, no blood. ANDREW drain with serosanguineous fluid Neuro: Normal speech, normal affect Problem List perforated diverticula, s/o colectomy and ostomy acute worsening of CKD 4, now on dialysis Metabolic acidosis secondary to HERMILA anemia in chronic kidney disease h/o lupus nephritis SLE hyperphosphatemia initially concerned for jejunitis possibly secondary to mycophenolate therapy she then began to have worsening abdominal pain and bloating, repeat CT (03/13): significantly increased free air managed medically per general surgery recommendations Status post exploratory lap, colectomy, ostomy 03/14 03/15 - continued postoperatively with low BP, and eventually needed Levophed transiently. On IV steroid Patient tolerating soft diet. Renal function worsened, patient started dialysis 03/11, tolerated well Hemodialysis per nephrology. kincaid placed evening of 03/09, patient had some mild retention, continue for strict i/o's s/p 4uPRBC. no bleeding. CT abdomen and pelvis done today showed some incisional bleed/hematoma Wound exploration done with hematoma evacuation yesterday. Hemoglobin is up to 8.3. Continue to monitor. Blood cx: pansensitive e.coli, urine cx: negative abd cultures: pseudomonas ID consulted, zosyn changed to cefepime 03/13. repeat blood cultures without growth. Severe leukocytosis. Antibiotics changed to IV meropenem and vancomycin. Tunneled dialysis catheter per nephrology Status post amiodarone drip. cardiology-Dr. Christy recommended discontinuing amiodarone and use metoprolol for heart rate control. Heart rate currently stable on oral metoprolol and in sinus rhythm. Blood pressure is also stable. IV metoprolol as needed for BP spikes and heart rate greater than 140. Continue IV steroid for lupus nephritis. Continue PT. Code: full Dispo: home. monitoring renal function set up for outpatient HD
--- NOTE | 2022-03-20 13:54 | P.PN ---
Date of Service: 03/20/22 S: Patient awake alert comfortable today, vital signs are stable, no specific complaints. O: Vital signs are stable, incision is clean. Pain is well controlled. A: Surgically stable P: Discussed the surgical findings with the patient from yesterday. She is in good spirits. We will try and increase her p.o. intake take.
[2022-03-20] MEDS ORDERED: VANCOMYCIN 1 GM in NA CHLORIDE 0.9% 250 ML IVPB SCH (17:00)
[2022-03-20] MEDS: Meropenem 500 MG in NA CHLORIDE 0.9% 100 ML IV SCH (17:14)
--- NOTE | 2022-03-20 23:32 | PN ---
Subjective: Ms. Mendez came in with a perforated bowel, had surgery, went into atrial fibrillation, rapid ventricular response. She has been in sinus rhythm, on amiodarone. Echocardiogram, which was ordered, showed perfectly normal echocardiogram without wall motion abnormalities, effusion, left at rial enlargement, or thrombus. We will switch her to p.o. beta maribeth once she is able to take p.o. I think the atrial fibrillation is secondary to her overall sickness and surgery. Hopefully, she w ill not need any antiarrhythmic down the road, but we will see how she does. For now, continue prese nt regimen. YELENA/MODL Voice ID: [id number] Report ID: [id number]
[2022-03-21] MEDS: HYDROCODONE/APAP 7.5/325 MG TAB PO PRN ×2 (00:16→23:36)
[2022-03-21] MEDS: HYDROMORPHONE HCL 0.5 MG/0.5 ML INJ IV PRN ×5 (02:30→20:08)
[2022-03-21] MEDS: METOPROLOL TAR 50 MG TAB PO SCH ×2 (05:23→17:34)
[2022-03-21] MEDS: METHYLPREDNISOLONE 40 MG INJ IV SCH ×2 (05:23→17:34)
[2022-03-21 05:33] LABS: Absolute Lymphocytes (CBC) 0.3 K/uL (0.7-4.9); Hematocrit 21.6 % (36.0-45.0); Lymphocytes % 1.3 % (15.3-44.8); MCV 80.4 fL (80-100); MPV 10.5 fL (7.6-11.3); RBC Red Blood Cell Count 2.69 M/uL (3.86-4.86)
[2022-03-21 05:54] LABS: Albumin 1.7 g/dL (3.4-5.0); Bilirubin Total 0.4 mg/dL (0.2-1.0); Magnesium 2.6 mg/dL (1.8-2.4); Potassium 4.8 mmol/L (3.5-5.1); Protein, Total 4.6 g/dL (6.4-8.2)
[2022-03-21 08:07] LABS: Anisocytosis SLIGHT; Blood Morphology Comment NOTED (NOT SEEN); Platelet Estimate ADEQ; Toxic Granulation 1+
[2022-03-21] MEDS: PANTOPRAZOLE 40 MG INJ IVP SCH ×2 (08:10→20:07)
[2022-03-21] MEDS: VITAMIN D 5,000 UNIT CAP PO SCH (08:10)
--- NOTE | 2022-03-21 12:27 | P.PN ---
Subjective Date of Service: 03/21/22 Chief Complaint: Abdominal pain No issues overnight. Patient states she is feeling better. She is complaining of back pain suspect from prolonged bed rest. She is tolerating her diet. Heart rate has been stable. No fever. Physical Examination - Vital Signs Temperature: 97 F Blood Pressure: 143/102 Pulse: 86 Respirations: 20 Pulse Ox (%): 97 Assessment And Plan - Current Problems (Diagnosis) (1) Acute worsening of stage 4 chronic kidney disease Current Visit: Yes Status: Acute (2) Metabolic acidosis Current Visit: Yes Status: Acute (3) Jejunitis Current Visit: Yes Status: Acute (4) Bowel perforation Current Visit: Yes Status: Acute (5) Anemia in chronic kidney disease Current Visit: Yes Status: Acute (6) Lupus nephritis Current Visit: No Status: Acute (7) SLE (systemic lupus erythematosus related syndrome) Current Visit: No Status: Acute - Plan Physical exam GEN: AOx3, not in acute distress. CV: Regular rate and rhythm, no edema Pulm: Clear to auscultation bilaterally. ABD: surgical dressing in place, Ostomy with loose stool, no blood. ANDREW drain with serosanguineous fluid Neuro: Normal speech, normal affect Problem List perforated diverticula, s/o colectomy and ostomy acute worsening of CKD 4, now on dialysis Metabolic acidosis secondary to HERMILA anemia in chronic kidney disease h/o lupus nephritis SLE hyperphosphatemia initially concerned for jejunitis possibly secondary to mycophenolate therapy she then began to have worsening abdominal pain and bloating, repeat CT (03/13): significantly increased free air managed medically per general surgery recommendations Status post exploratory lap, colectomy, ostomy 03/14 03/15 - continued postoperatively with low BP, and eventually needed Levophed transiently. On IV steroid Patient tolerating soft diet. Renal function worsened, patient started dialysis 03/11, tolerated well Hemodialysis per nephrology. Tunneled dialysis catheter per nephrology. kincaid placed evening of 03/09, patient had some mild retention, continue for strict i/o's s/p 4uPRBC. no bleeding. Repeat CT abdomen and pelvis showed some incisional bleed/hematoma Wound exploration done with hematoma evacuation yesterday. Hemoglobin dropped to 7.3. Patient still has significant leukocytosis. Blood cx: pansensitive e.coli, urine cx: negative abd cultures: pseudomonas Continue to monitor CBC. ID is following. repeat blood cultures without growth. Antibiotics changed to IV meropenem and vancomycin. Status post amiodarone drip. cardiology-Dr. Christy recommended discontinuing amiodarone and use metoprolol for heart rate control. Heart rate currently stable and in sinus rhythm on oral metoprolol. Blood pressure is also stable. IV metoprolol as needed for BP spikes and heart rate greater than 140. Continue IV steroid for lupus nephritis. Continue PT. Increase activity as tolerated. Code: full
--- NOTE | 2022-03-21 13:26 | P.PN ---
Date of Service: 03/21/22 Nephrology (S) Pt seen on HD, DBP elevated, pt not in any distress, case discussed in detail with pt, all questions answered. Vitals, medications, blood work and imaging reviewed in the chart. General: NAD, non tachypnec HEENT: Atraumatic, NC present Neck: Supple, Rt IJ CVC Lt SC dialysis catheter Respiratory: Normal respiratory effort, b/l air entry Cardiovascular: Mildly tachy, reg Gastrointestinal: Surgical incision covered with dressing, colostomy, ANDREW drain, some distention Musculoskeletal: No clubbing, No contractures Ext: No sig LE edema Integumentary: No rashes, No cyanosis Neurological: Awake, alert, non encephalopathic, no tremors or myoclonus Labs reviewed in EMR Conclusions/Impression: Stage III ARF with presenting Cr level > 4 mg/dl in the setting of hypotension, anemia, sepsis, other likely leading to ATN CKD IV underlying with proteinuria due to Lupus nephritis -Pt remains oliguric, HD today for metab clearance and UF Hyperkalemia, hyperphosphatemia in the setting of renal failure -Pt on a renal diet. Will clear some phos on HD. Will order phos binder and escalate if tolerating diet and moving her bowels Underlying chronic HTN with relative systolic hypotension in the setting of acute loss anemia, narcotic pain administration, other -DBP rising back up, will f/u post HD BP Acute on chronic anemia related to surgical losses and chronic illnesses including lupus, CKD, other -Monitor for bleeding from surgical incision, hold any heparin on dialysis, H/H remains low. Holding IV iron given recent bacteremia. Will dose TANIA when BP is not elevated. SLE with lupus nephritis -Monitor. remains off IS, on stress dose abimael Joseph MD, [facility]
[2022-03-21] MEDS ORDERED: EPOETIN ALFA 10,000 UNIT/ML VIAL SQ ONE (16:30)
[2022-03-21] MEDS: Meropenem 500 MG in NA CHLORIDE 0.9% 100 ML IV SCH (17:34)
[2022-03-22] MEDS: HYDROMORPHONE HCL 0.5 MG/0.5 ML INJ IV PRN ×4 (01:03→20:18)
--- NOTE | 2022-03-22 02:26 | PN ---
Date of Progress Note: 03/19/2022 We have been following Ms. Mendez intermittently because of atrial fibrillation. She came in with p erforated bowel, underwent surgery by Dr. Bryson, was in atrial fibrillation, given IV amiodarone, c onverted to sinus rhythm. Has been off amiodarone for couple of days, went back to the atrial flutte r. White count of 22,000, hemoglobin is 7.2, creatinine is 3.67. Nephrology is involved. I think s he needs to have blood transfusion. She needs to have her infection treated. I think she needs to b e on Lovenox as allowed by Dr. Bryson. I think she needs to receive digoxin IV, beta-maribeth IV, in crease her metoprolol to 50 b.i.d., consider use of sotalol. YELENA/ANTONIO Voice ID: [id number] Report ID: [id number]
[2022-03-22] MEDS: HYDROCODONE/APAP 7.5/325 MG TAB PO PRN ×3 (04:38→23:37)
[2022-03-22 05:20] LABS: Magnesium 2.3 mg/dL (1.8-2.4); Phosphorus 6.8 mg/dL (2.5-4.9); Potassium 4.2 mmol/L (3.5-5.1)
[2022-03-22] MEDS: METOPROLOL TAR 50 MG TAB PO SCH ×2 (05:21→18:46)
[2022-03-22] MEDS: METHYLPREDNISOLONE 40 MG INJ IV SCH ×2 (05:21→18:45)
[2022-03-22] MEDS: PANTOPRAZOLE 40 MG INJ IVP SCH ×2 (07:19→20:01)
[2022-03-22] MEDS: SEVELAMER CARBONATE 800 MG TABLET PO SCH ×3 (07:19→18:45)
[2022-03-22] MEDS: VITAMIN D 5,000 UNIT CAP PO SCH (07:19)
--- NOTE | 2022-03-22 11:43 | P.PN ---
Subjective Date of Service: 03/22/22 Chief Complaint: Abdominal pain Patient states she is feeling better. She denies abdominal pain. She is complaining of back pain suspect from prolonged bed rest. She is tolerating her diet. No fever. Physical Examination - Vital Signs Temperature: 97.4 F Blood Pressure: 136/93 Pulse: 82 Respirations: 18 Pulse Ox (%): 98 Assessment And Plan - Current Problems (Diagnosis) (1) Acute worsening of stage 4 chronic kidney disease Current Visit: Yes Status: Acute (2) Metabolic acidosis Current Visit: Yes Status: Acute (3) Jejunitis Current Visit: Yes Status: Acute (4) Bowel perforation Current Visit: Yes Status: Acute (5) Anemia in chronic kidney disease Current Visit: Yes Status: Acute (6) Lupus nephritis Current Visit: No Status: Acute (7) SLE (systemic lupus erythematosus related syndrome) Current Visit: No Status: Acute - Plan Physical exam GEN: AOx3, not in acute distress. CV: Regular rate and rhythm, no edema Pulm: Clear to auscultation bilaterally. ABD: surgical dressing in place, Ostomy with loose stool, no blood. ANDREW drain with serosanguineous fluid Neuro: Normal speech, normal affect Problem List perforated diverticula, s/o colectomy and ostomy acute worsening of CKD 4, now on dialysis Metabolic acidosis secondary to HERMILA anemia in chronic kidney disease h/o lupus nephritis SLE hyperphosphatemia initially concerned for jejunitis possibly secondary to mycophenolate therapy she then began to have worsening abdominal pain and bloating, repeat CT (03/13): significantly increased free air managed medically per general surgery recommendations Status post exploratory lap, colectomy, ostomy 03/14 03/15 - continued postoperatively with low BP, and eventually needed Levophed transiently. On IV steroid Patient tolerating soft diet. Renal function worsened, patient started dialysis 03/11, tolerated well Hemodialysis per nephrology. Tunneled dialysis catheter per nephrology. kincaid placed evening of 03/09, patient had some mild retention, continue for strict i/o's s/p 4uPRBC. no bleeding. Repeat CT abdomen and pelvis showed some incisional bleed/hematoma Wound exploration done with hematoma evacuation yesterday. Hemoglobin dropped to 7.3. Patient still has significant leukocytosis. Steroid-induced leukocytosis contributing to markedly elevated WBC. Blood cx: pansensitive e.coli, urine cx: negative abd cultures: pseudomonas Continue to monitor CBC. ID is following. repeat blood cultures without growth. Antibiotics changed to IV meropenem and vancomycin. Status post amiodarone drip. cardiology-Dr. Christy recommended discontinuing amiodarone and use metoprolol for heart rate control. Heart rate currently stable and in sinus rhythm on oral metoprolol. Blood pressure is also stable. IV metoprolol as needed for BP spikes and heart rate greater than 140. Continue IV steroid for lupus nephritis. Continue PT. Increase activity as tolerated. Up in a chair today if patient will tolerate it. Code: full
[2022-03-22 12:36] LABS: Absolute Lymphocytes (CBC) 0.4 K/uL (0.7-4.9); Hematocrit 20.2 % (36.0-45.0); Lymphocytes % 1.4 % (15.3-44.8); MPV 9.8 fL (7.6-11.3); RBC Red Blood Cell Count 2.49 M/uL (3.86-4.86)
[2022-03-22 14:43] LABS: Blood Morphology Comment NOT SEEN (NOT SEEN); Platelet Estimate ADEQ
[2022-03-22] MEDS ORDERED: FLUCONAZOLE 400 MG IVPB 400 MG/200 ML BAG IV ONE (15:30)
--- NOTE | 2022-03-22 16:37 | P.PN ---
Nephrology (S) Pt seen in the ICU, sitting on the side of the bed, tolerating diet, has had some bloody sputum but denies dyspnea. Has been in SR. Blood transfusion ordered as the H/H I ordered came back with Hb < 7 Vitals, medications, blood work and imaging reviewed in the chart. General: NAD, non tachypnec HEENT: Atraumatic, NC present Neck: Supple, Rt IJ CVC Lt SC dialysis catheter Respiratory: Normal respiratory effort, b/l air entry, reduced BS at the bases Cardiovascular: Mildly tachy, reg Gastrointestinal: Surgical incision covered with dressing, colostomy, ANDREW drain, some distention Musculoskeletal: No clubbing, No contractures Ext: No sig LE edema Integumentary: No rashes, No cyanosis Neurological: Awake, alert, non encephalopathic, no tremors or myoclonus Labs reviewed in EMR Conclusions/Impression: Stage III ARF with presenting Cr level > 4 mg/dl in the setting of hypotension, anemia, sepsis, other likely leading to ATN CKD IV underlying with proteinuria due to Lupus nephritis -Pt remains oliguric, HD performed yesterday. D/c kincaid. Next HD tmrw. Hyperkalemia, hyperphosphatemia in the setting of renal failure -Pt on a renal diet. Will clear some phos on HD. Will order phos binder and escalate if tolerating diet. Underlying chronic HTN with relative systolic hypotension in the setting of acute loss anemia, narcotic pain administration, other -Trend BP, if BP remaining elevated, will re-introduce scheduled medication such as CCB l Acute on chronic anemia related to surgical losses and chronic illnesses including lupus, CKD, other -Monitor for bleeding from surgical incision, hold any heparin on dialysis for now. Held off on IV iron given recent bacteremia. Did dose TANIA/Retacrit yesterday. Transfusing again today for low Hb SLE with lupus nephritis. Leukocytosis -Monitor. remains off IS, on stress dose steroids. Rising leukocytosis. ID managing Abx, repeat BCx drawn last week. Martin Joseph MD, [facility]
[2022-03-22] MEDS: Meropenem 500 MG in NA CHLORIDE 0.9% 100 ML IV SCH (18:46)
[2022-03-22] MEDS: NA CHLORIDE 0.9% 250 ML IV SCH (20:00)
[2022-03-22] MEDS: HYDRALAZINE HCL 20 MG/ML VIAL IV PRN (22:45)
[2022-03-23 01:47] LABS: Hematocrit 23.5 % (36.0-45.0)
[2022-03-23] MEDS: HYDROMORPHONE HCL 0.5 MG/0.5 ML INJ IV PRN ×3 (04:25→21:15)
[2022-03-23] MEDS: METOPROLOL TAR 50 MG TAB PO SCH ×2 (05:27→17:18)
[2022-03-23] MEDS: METHYLPREDNISOLONE 40 MG INJ IV SCH (05:27)
[2022-03-23 05:32] LABS: Magnesium 2.5 mg/dL (1.8-2.4); Phosphorus 8.2 mg/dL (2.5-4.9); Potassium 4.8 mmol/L (3.5-5.1)
[2022-03-23] MEDS: VITAMIN D 5,000 UNIT CAP PO SCH (08:59)
[2022-03-23] MEDS: PANTOPRAZOLE 40 MG INJ IVP SCH ×2 (08:59→20:26)
[2022-03-23] MEDS: SEVELAMER CARBONATE 800 MG TABLET PO SCH ×3 (08:59→17:18)
[2022-03-23] MEDS: ALPRAZOLAM 0.25 MG TABLET PO SCH ×3 (11:36→21:00)
--- NOTE | 2022-03-23 12:29 | EKG ---
Test Date: 2022-03-20 Test Time: 09:14:10 Brick Baker: RNNT MEASUREMENT RESULTS: Intervals: Rate: 84 AL: 132 QRSD: 78 QT: 364 QTc: 430 [place]: P: 19 AL: 132 QRS: 2 T: 66 INTERPRETIVE STATEMENTS: Normal sinus rhythm Moderate voltage criteria for LVH, may be normal variant Cannot rule out Septal infarct, age undetermined Inferolateral injury pattern ACUTE DE Consider right ventricular involvement in acute inferior infarct Abnormal ECG Compared to ECG 03/18/2022 23:56:23 Supraventricular tachycardia no longer present ST (T wave) deviation no longer present Myocardial infarct finding still present Electronically Signed On 03-23-22 12:25:26 CDT by Juan A Vargas
--- NOTE | 2022-03-23 13:02 | P.PN ---
Subjective Date of Service: 03/23/22 Chief Complaint: Abdominal pain Patient states she is feeling better. She denies abdominal pain. She is complaining of back pain suspect from prolonged bed rest. She is tolerating her diet but oral intake has been poor. No fever. Leukocytosis trended up to 30,000. Physical Examination - Vital Signs Temperature: 97.6 F Blood Pressure: 160/105 Pulse: 81 Respirations: 20 Pulse Ox (%): 98 Assessment And Plan - Current Problems (Diagnosis) (1) Acute worsening of stage 4 chronic kidney disease Current Visit: Yes Status: Acute (2) Metabolic acidosis Current Visit: Yes Status: Acute (3) Jejunitis Current Visit: Yes Status: Acute (4) Bowel perforation Current Visit: Yes Status: Acute (5) Anemia in chronic kidney disease Current Visit: Yes Status: Acute (6) Lupus nephritis Current Visit: No Status: Acute (7) SLE (systemic lupus erythematosus related syndrome) Current Visit: No Status: Acute - Plan Physical exam GEN: AOx3, not in acute distress. CV: Regular rate and rhythm, no edema Pulm: Clear to auscultation bilaterally. ABD: surgical dressing in place, Ostomy with loose stool, no blood. ANDREW drain with serosanguineous fluid Neuro: Normal speech, normal affect Problem List perforated diverticula, s/o colectomy and ostomy acute worsening of CKD 4, now on dialysis Metabolic acidosis secondary to HERMILA anemia in chronic kidney disease h/o lupus nephritis SLE hyperphosphatemia initially concerned for jejunitis possibly secondary to mycophenolate therapy she then began to have worsening abdominal pain and bloating, repeat CT (03/13): significantly increased free air managed medically per general surgery recommendations Status post exploratory lap, colectomy, ostomy 03/14 03/15 - continued postoperatively with low BP, and eventually needed Levophed transiently. On IV steroid Patient tolerating soft diet. Renal function worsened, patient started dialysis 03/11, tolerated well Hemodialysis per nephrology. Tunneled dialysis catheter per nephrology. kincaid placed evening of 03/09, patient had some mild retention, continue for strict i/o's. Patient with poor urine output-almost anuric. Kincaid catheter discontinued Repeat CT abdomen and pelvis showed some incisional bleed/hematoma Wound exploration done with hematoma evacuation yesterday. s/p 6u PRBC. no bleeding. Patient has marked leukocytosis. Steroid-induced leukocytosis contributing to markedly elevated WBC. Blood cx: pansensitive e.coli, urine cx: negative abd cultures: pseudomonas. Repeat blood cultures: No growth. Continue to monitor CBC. ID is following. Antibiotics changed to IV meropenem and vancomycin. Status post amiodarone drip. cardiology-Dr. Christy recommended discontinuing amiodarone and use metoprolol for heart rate control. Heart rate currently stable and in sinus rhythm on oral metoprolol. Blood pressure is also stable. IV metoprolol as needed for BP spikes and heart rate greater than 140. Continue IV steroid for lupus nephritis. Nephrology is following and planning to taper down the steroids. Continue PT. Increase activity as tolerated. Up in a chair today if patient will tolerate it. Xanax as needed for anxiety. Code: full Disposition: Social service consulted for arrangement for inpatient rehab.
[2022-03-23] MEDS: HYDRALAZINE HCL 20 MG/ML VIAL IV PRN (15:25)
[2022-03-23] MEDS: Meropenem 500 MG in NA CHLORIDE 0.9% 100 ML IV SCH (17:16)
[2022-03-23] MEDS ORDERED: FLUCONAZOLE 400 MG IVPB 400 MG/200 ML BAG IV SCH (18:00)
--- NOTE | 2022-03-23 18:04 | P.PN ---
Date of Service: 03/23/22 Vital Signs Temp Pulse Resp BP Pulse Ox 97.9 F 80 21 H 112/69 99 03/23/22 16:00 03/23/22 17:18 03/23/22 16:00 03/23/22 17:18 03/23/22 15:00 Medications Acetaminophen (Acetaminophen 500 Mg Tab) 500 mg PO Q6H PRN PRN Reason: Pain scale 2-4 (Mild) Last Admin: 03/23/22 17:29 Dose: 500 mg Hydrocodone Bitart/Acetaminophen (Hydrocodone/Apap 7.5/325 Mg Tab) 1 tab PO Q4H PRN PRN Reason: Pain scale 8-10 (Severe) Last Admin: 03/22/22 23:37 Dose: 1 tab Cholecalciferol (Vitamin D 5,000 Unit Cap) 5,000 unit PO DAILY ABDI Last Admin: 03/23/22 08:59 Dose: 5,000 unit Heparin Sodium (Porcine) (Heparin 1,000 Unit/Ml Vial) 2,000 unit IV EVERY HD PRN PRN Reason: DIALYSIS Last Admin: 03/18/22 14:27 Dose: 2,000 unit Heparin Sodium (Porcine) (Heparin 1,000 Unit/Ml Vial) 4,000 unit IV EVERY HD PRN PRN Reason: DIALYSIS CATHETER CARE Last Admin: 03/19/22 23:18 Dose: 4,000 unit Hydralazine HCl (Hydralazine Hcl 20 Mg/Ml Vial) 10 mg IV Q6HP PRN PRN Reason: Titrate to SBP (MUST DEFINE) Last Admin: 03/23/22 15:25 Dose: 10 mg Hydromorphone HCl (Hydromorphone Hcl 0.5 Mg/0.5 Ml Inj) 0.5 mg IV Q2H PRN PRN Reason: BREAKTHROUGH PAIN Last Admin: 03/21/22 14:44 Dose: 0.5 mg Sodium Chloride (Sodium Chloride) 250 mls @ 0 mls/hr IV .Q0M ABDI Last Admin: 03/22/22 20:00 Dose: 250 mls Sodium Chloride (Sodium Chloride) 250 mls @ 0 mls/hr IV .Q0M [facility] Vancomycin HCl 1 gm/ Sodium (Chloride) 250 mls @ 250 mls/hr IVPB AFTER EACH DIALYSIS [facility] Meropenem 500 mg/ Sodium (Chloride) 100 mls @ 200 mls/hr IV Q24H [facility] Last Admin: 03/23/22 17:16 Dose: 100 mls Methylprednisolone Sodium Succinate (Methylprednisolone 40 Mg Inj) 40 mg IV Q12H [facility] Last Admin: 03/23/22 05:27 Dose: 40 mg Metoprolol Tartrate (Metoprolol Tar 50 Mg Tab) 50 mg PO BID 6AM 6PM [facility] Last Admin: 03/23/22 05:27 Dose: 50 mg Pantoprazole Sodium (Pantoprazole 40 Mg Inj) 40 mg IVP Q12HR [facility]; Protocol Last Admin: 03/23/22 08:59 Dose: 40 mg Phenol (Phenol 1.4% Oral [place] 180ml) 2 appl MM Q4H PRN PRN Reason: SORE THROAT Last Admin: 03/15/22 11:02 Dose: 2 appl Sodium Chloride (Flush Normal Saline 10 Ml) 10 ml IV BID [facility] Last Admin: 03/23/22 09:00 Dose: 10 ml Sodium Chloride (Sodium Chloride 0.9% 10ml Inj) 10 ml IV UD PRN PRN Reason: Diluant Microbiology Results 03/09/22 06:47 Clean Catch Urine Ragan Count - Final No growth. 03/09/22 06:47 Clean Catch Urine - Final No growth. Assessment/ Plan: Nephrology Feeling better but with persistent weakness No chest pain No dyspnea No acute events overnight Vitals, medications, blood work and imaging reviewed in the chart. General: Oriented x3, Cooperative, NAD HEENT: Atraumatic Neck: Supple Respiratory: Normal respiratory effort Cardiovascular: Regular rate/rhythm, Edema Gastrointestinal: Tenderness Musculoskeletal: No clubbing, No contractures Integumentary: No rashes, No cyanosis Neurological: Normal speech Laboratory Data (last 24 hrs) 03/09/22 06:19: Sodium 138, Potassium 4.5, BUN 79 H, Creatinine 6.88 H*, Glucose 121 H, Total Bilirubin 0.1 L, AST 6 L, ALT 21, Alkaline Phosphatase 57, Lipase 129 03/09/22 06:19: WBC 4.7, Hgb 6.4 L*, Hct 20.5 L*, Plt Count 242 Imagings Data: EXAM DESCRIPTION: CT - Abdomen Pelvis Wo Contrast - 03/09/2022 8:37 am CLINICAL HISTORY: Abdominal pain, acute, nonlocalized COMPARISON: CT ABD PELVIS W CONTRAST dated 01/23/2013; Transvaginal Study Probe dated 02/05/2022 TECHNIQUE: Axial [address] imaging of the abdomen and pelvis was performed without IV contrast. No IV contrast was given because of allergy, abnormal renal function, patient refusal or physician request. No oral contrast administered. All CT scans are performed using dose optimization technique as appropriate and may include automated exposure control or mA/KV adjustment according to patient size. FINDINGS: No suspicious findings in the lung bases. The liver, spleen and pancreas show no suspicious findings on non-contrast imaging. Gallbladder is contracted around multiple gallstones. No biliary tree dilatation. No hydronephrosis or suspicious renal mass. No significant adrenal finding. Isodense renal masses and pyelonephritis cannot be excluded in the absence of IV contrast. The urinary bladder is without significant finding. IUD appears to be well positioned within the fundal and midportion of the uterus. Uterine contour is deformed by multiple fibroids. Along the left inferior margin of the fundus there is an approximately 3 centimeter fibroid. Right lateral approximately 3 centimeter fibroid seen as well. No fallopian tube or ovarian abnormality. There is no abnormal air or fluid collection in the pelvis. No gastric dilatation or gastric wall thickening. Fluid is present filling but not dilating the stomach. No duodenum abnormality seen. Proximal jejunal loops are abnormal. There is wall thickening and edema. Stranding is present in the adjacent mesenteric fat. In the proximal jejunum just distal to the ligament of Treitz there is abnormal air collection along the wall of the the jejunum extending as punctate areas of extraluminal free air. The adjacent splenic flexure region of the colon does have diverticulosis. However, no wall thickening or wall edema seen. The air is believed to be from jejunum rather than an acute diverticulitis. More distally the loops of ileum show no suspicious finding. No direct or indirect appendicitis findings. Left-sided colonic diverticulosis present without acute diverticulitis findings. No acute colon finding seen. No other area of free air or acute finding. No abscess or drainable fluid collection. No hernia, mass or bulky lymphadenopathy. No suspicious bony findings. Findings telephoned to referring physician 8:52 a.m. IMPRESSION: Wall thickening and edema involve multiple loops of jejunum with minimal amount of extra luminal free air adjacent to the proximal jejunum. No associated mass or foreign body identified. No abscess or drainable fluid collection. No free air distant from the jejunum. IUD appears to be well positioned within the multi fibroid uterus. No [employer]ENCE [employer]ING AGENT or pelvic acute finding identifiable. Diverticulosis without acute diverticulitis. Multi stone cholelithiasis without acute finding. 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 -No NSAIDs -Continue acute HD for HERMILA AG Acidosis in the setting of HERMILA -HD as ordered HTN with CKD -Start Losartan BID -Increase Metoprolol 100mg BID in the setting of Paroxysmal Afib Severe malnutrition Hypoalbuminemia -Advance diet as tolerated -Continue Protonix -Albumin IV prn Anemia in chronic illness -Retacrit TIW -PRBC prn CKD MBD HyperPO4 -Continue Vitamin D Jejunitis with performation may be due to Mycophenolate therapy Peritonitis Perforated colon sp Colectomy with colostomy -Continue IV Abx -Dilaudid IV prn -Hold Mycophenolate -Continue Protonix IV q12h; wean as tolerated -Change steroids to Prednisone 20mg daily and continue to wean as tolerated Greater than 30min patient care
--- NOTE | 2022-03-23 19:08 | PN ---
Subjective: The patient is lying in bed. No new acute event. Chart reviewed. The patient getting dialyzed. Objective: Vital Signs: Temperature 97, pulse 81, respirations 20, blood pressure 160/105. Lungs: Basal crackles. Heart: S1, S2. Regular. Abdomen: Soft. Bowel sounds decreased. Extremities: No edema. Laboratory Data: Shows WBC 30.9, hemoglobin 6.7, post transfusion 7.9, platelets are 147. Chemistry shows sodium 133, potassium 4.8, chloride 98, bicarb 24, BUN 74, creatinine 4.3, glucose is 368. Al bumin level is 1.7. Assessment And Plan: 1.Status post diverticular perforation and hematoma evacuation. We will repeat CT scan. The patien t is currently being treated with IV Merrem and vancomycin. 2.End-stage renal disease. We will get a CT abdomen and pelvis with contrast if okay with Renal tea m. Also get blood cultures x2. Continue current treatment as the patient looks clinically stable. NF/MODL Voice ID: [id number] Report ID: [id number]
--- NOTE | 2022-03-23 19:39 | P.PN ---
Date of Service: 03/24/22 Subjective: slight lower abdominal cramping since yesterday, nursing noted spotting as well possibly starting menstrual period low appetite ROS: 10 point ROS as noted above, otherwise negative Physical exam GEN: AOx3, fatigued appearing HEENT: normal conjunctiva, sclera anicteric CV: regular rate/rhythm, no murmur Pulm: nonlabored respirations, clear bilaterally ABD: soft, mild tenderness in lower abdomen, ANDREW drain in place, ostomy with stool/air Neuro: AOx3, moves all extremities, slight depressed affect Problem List perforated diverticula, s/p colectomy and ostomy acute worsening of CKD 4, now on dialysis Metabolic acidosis secondary to HERMILA anemia in chronic kidney disease h/o lupus nephritis SLE hyperphosphatemia initially concerned for jejunitis possibly secondary to mycophenolate therapy patient had initial improvement, and diet was slowly advanced. she then began to have worsening abdominal pain and bloating, repeat CT (03/13): significantly increased free air managed medically per general surgery recommendations Patient worsened on 03/14 and required ex-lap, colectomy, ostomy 03/15 - continued postoperatively with low BP, pain meds dropped MAP <60, patient started on levophed and was weaned after just several hours. given gentle IVF patient developed hematoma at surgical incision - s/p I&D (03/19), ANDREW drain placement improving, tolerating diet s/p 6uPRBC in total during hospitalization. goal Hgb >7.0 Nephrology initiated IV steroids solumed 40q8h on 03/09; titrated to BID last week; and down to prednisone 20mg daily on 03/23; wean as tolerated renal function worsened, patient started dialysis 03/11, tolerating well continue HD per nephrology kincaid placed evening of 03/09, patient had some mild retention, continued for strict i/o's; now dc'd Blood cx: pansensitive e.coli, urine cx: negative abd cultures: pseudomonas ID consulted vanc & merrem since 03/19 and 03/11, respectively - initially received zosyn diflucan added 03/23 Blood (03/09): e. coli Blood (03/13): negative Wound (03/14): pseudomonas, e.coli Blood (03/18): negative Blood (03/23): pending increasing leukocytosis likely steroid induced given continued increased of WBC, ID recommended repeat CT, will obtain today paroxysmal afib this hospitalization; initially on amio drip; which has been discontinued per cardiology recs, continue metoprolol continue PT, recommend inpatient rehab SW/CM consulted Code: full Dispo: inpatient rehab currently with temporary dialysis cath Time Spent Managing Pts Care (In Minutes): 35
[2022-03-23] MEDS: LOSARTAN POTASSIUM 50 MG TABLET PO SCH (20:27)
[2022-03-23] MEDS: ENSURE CLEAR 200 ML CAN PO SCH (20:28)
[2022-03-24] MEDS: HYDROMORPHONE HCL 0.5 MG/0.5 ML INJ IV PRN ×4 (03:49→18:41)
[2022-03-24 05:21] LABS: Absolute Lymphocytes (CBC) 1.1 K/uL (0.7-4.9); Hematocrit 25.4 % (36.0-45.0); Lymphocytes % 3.1 % (15.3-44.8); MCV 81.5 fL (80-100); MPV 9.3 fL (7.6-11.3); RBC Red Blood Cell Count 3.12 M/uL (3.86-4.86)
[2022-03-24 05:29] LABS: Albumin 1.9 g/dL (3.4-5.0); Bilirubin Total 0.4 mg/dL (0.2-1.0); Magnesium 2.3 mg/dL (1.8-2.4); Phosphorus 5.1 mg/dL (2.5-4.9); Potassium 3.7 mmol/L (3.5-5.1); Protein, Total 4.7 g/dL (6.4-8.2)
[2022-03-24] MEDS: METOPROLOL TAR 50 MG TAB PO SCH ×2 (05:47→18:00)
[2022-03-24] MEDS: SEVELAMER CARBONATE 800 MG TABLET PO SCH ×4 (08:00→18:25)
[2022-03-24] MEDS: PANTOPRAZOLE 40 MG INJ IVP SCH ×2 (08:09→20:46)
[2022-03-24] MEDS: LOSARTAN POTASSIUM 50 MG TABLET PO SCH (08:10)
[2022-03-24] MEDS: ALPRAZOLAM 0.25 MG TABLET PO SCH ×2 (08:11→20:47)
[2022-03-24] MEDS: VITAMIN D 5,000 UNIT CAP PO SCH (08:11)
[2022-03-24] MEDS ORDERED: predniSONE 20 MG TAB PO SCH (09:00)
[2022-03-24] MEDS: ENSURE CLEAR 200 ML CAN PO SCH ×2 (09:00→20:46)
[2022-03-24] MEDS ORDERED: HYDROMORPHONE HCL 1 MG/ML INJ IV PRN (12:37)
--- NOTE | 2022-03-24 12:44 | RAD REPORT ---
EXAM DESCRIPTION: CT - Abdomen Pelvis Wo Contrast - 03/24/2022 11:34 am CLINICAL HISTORY: Oral Contrast ONLY COMPARISON: Abdomen Pelvis W Contrast dated 03/19/2022; Abdomen Pelvis Wo Contrast dated TECHNIQUE: Axial [address] imaging of the abdomen and pelvis was performed without IV contrast. No IV contrast was given because of allergy, abnormal renal function, patient refusal or physician re quest. Oral contrast was given. All CT scans are performed using dose optimization technique as appropriate and may include automated exposure control or mA/KV adjustment according to patient size. FINDINGS: No pneumonia in the lung bases. No pleural effusions. The liver, spleen and pancreas show no suspicious findings on non-contrast imaging. Multi stone barbara lithiasis is present. There is vicarious excretion of contrast into the gallbladder lumen. Gallbladde r wall does not appear thickened or edematous. Acute gallbladder process is unlikely. No biliary tree dilatation. No hydronephrosis or suspicious renal mass. No perinephric edema or stranding. No significant adrenal finding. Isodense renal masses and pyelonephritis cannot be excluded in the absence of IV contrast. Urinary bladder is contracted around a Rivera catheter. IUD is in place within the uterus. Lobulated u terine contour is present. There is a fundal fibroid approximately 4 cm in size. Primary ovarian proc ess is not suspected. Contrast filled stomach shows no wall thickening, mass or edema. No acute duodenal finding. No dilate d small bowel loops present. Multiple small bowel loops in the left abdomen show wall thickening and edema. There is congestion in the adjacent mesenteric fat. Lo of the terminal ileum are slightly t hickened without dilatation. Appendix is not clearly defined. Appendicitis is not suspected. Left mid abdomen colostomy site shows no peristomal hernia or other emergent finding. The periumbilical hemat kerri in the midline has been removed or resolved. Skin donnie are still in place. Drain tube remains along the floor of the pelvis. Fluid/edema present in the subcutaneous fatty tissues of the abdomen and pelvis, worse on the left si de. No intraperitoneal free air. There is no abscess identifiable. No mass or bulky lymphadenopathy. No o mental thickening. No suspicious bony findings. IMPRESSION: No abscess is identified. The periumbilical hematoma has decompressed or been removed. Multiple loops of small bowel in the left abdomen show wall thickening and edema. There is mild edema of the lo of the terminal ileum without dilatation. Cholelithiasis without acute gallbladder or biliary tree finding suspected. Left mid abdomen ostomy site shows no suspicious findings on CT imaging. No lung base pneumonia. Full assessment is limited is the absence of IV contrast.
--- NOTE | 2022-03-24 17:31 | P.PN ---
Date of Service: 03/24/22 Vital Signs Temp Pulse Resp BP Pulse Ox 97.4 F 113 H 20 87/67 L 98 03/24/22 16:00 03/24/22 16:00 03/24/22 16:00 03/24/22 16:00 03/24/22 13:00 Medications Acetaminophen (Acetaminophen 500 Mg Tab) 500 mg PO Q6H PRN PRN Reason: Pain scale 2-4 (Mild) Last Admin: 03/23/22 17:29 Dose: 500 mg Hydrocodone Bitart/Acetaminophen (Hydrocodone/Apap 7.5/325 Mg Tab) 1 tab PO Q4H PRN PRN Reason: Pain scale 8-10 (Severe) Last Admin: 03/22/22 23:37 Dose: 1 tab Cholecalciferol (Vitamin D 5,000 Unit Cap) 5,000 unit PO DAILY ABDI Last Admin: 03/24/22 08:11 Dose: 5,000 unit Heparin Sodium (Porcine) (Heparin 1,000 Unit/Ml Vial) 2,000 unit IV EVERY HD PRN PRN Reason: DIALYSIS Last Admin: 03/18/22 14:27 Dose: 2,000 unit Heparin Sodium (Porcine) (Heparin 1,000 Unit/Ml Vial) 4,000 unit IV EVERY HD PRN PRN Reason: DIALYSIS [employer]HE[employer] CARE Last Admin: 03/19/22 23:18 Dose: 4,000 unit Hydralazine HCl (Hydralazine Hcl 20 Mg/Ml Vial) 10 mg IV Q6HP PRN PRN Reason: Titrate to SBP (MUST DEFINE) Last Admin: 03/23/22 15:25 Dose: 10 mg Hydromorphone HCl (Hydromorphone Hcl 0.5 Mg/0.5 Ml Inj) 0.5 mg IV Q2H PRN PRN Reason: BREAKTHROUGH PAIN Last Admin: 03/21/22 14:44 Dose: 0.5 mg Sodium Chloride (Sodium Chloride) 250 mls @ 0 mls/hr IV .Q0M ABDI Last Admin: 03/22/22 20:00 Dose: 250 mls Sodium Chloride (Sodium Chloride) 250 mls @ 0 mls/hr IV .Q0M ABDI Vancomycin HCl 1 gm/ Sodium (Chloride) 250 mls @ 250 mls/hr IVPB AFTER EACH DIALYSIS [facility] Last Admin: 03/23/22 20:26 Dose: 250 mls Meropenem 500 mg/ Sodium (Chloride) 100 mls @ 200 mls/hr IV Q24H [facility] Last Admin: 03/23/22 17:16 Dose: 100 mls Methylprednisolone Sodium Succinate (Methylprednisolone 40 Mg Inj) 40 mg IV Q12H [facility] Last Admin: 03/23/22 05:27 Dose: 40 mg Metoprolol Tartrate (Metoprolol Tar 50 Mg Tab) 50 mg PO BID 6AM 6PM [facility] Last Admin: 03/23/22 05:27 Dose: 50 mg Pantoprazole Sodium (Pantoprazole 40 Mg Inj) 40 mg IVP Q12HR [facility]; Protocol Last Admin: 03/24/22 08:09 Dose: 40 mg Phenol (Phenol 1.4% Oral [place] 180ml) 2 appl MM Q4H PRN PRN Reason: SORE THROAT Last Admin: 03/15/22 11:02 Dose: 2 appl Sodium Chloride (Flush Normal Saline 10 Ml) 10 ml IV BID [facility] Last Admin: 03/24/22 08:09 Dose: 10 ml Sodium Chloride (Sodium Chloride 0.9% 10ml Inj) 10 ml IV UD PRN PRN Reason: Diluant Microbiology Results 03/09/22 06:47 Clean Catch Urine [place] Count - Final No growth. 03/09/22 06:47 Clean Catch Urine - Final No growth. Assessment/ Plan: Nephrology No chest pain No dyspnea Persistent weakness No acute events overnight Vitals, medications, blood work and imaging reviewed in the chart. General: Oriented x3, Cooperative, NAD HEENT: Atraumatic Neck: Supple Respiratory: Normal respiratory effort Cardiovascular: Regular rate/rhythm, Edema Gastrointestinal: Tenderness Musculoskeletal: No clubbing, No contractures Integumentary: No rashes, No cyanosis Neurological: Normal speech Laboratory Data (last 24 hrs) 03/09/22 06:19: Sodium 138, Potassium 4.5, BUN 79 H, Creatinine 6.88 H*, Glucose 121 H, Total Bilirubin 0.1 L, AST 6 L, ALT 21, Alkaline Phosphatase 57, Lipase 1 29 03/09/22 06:19: WBC 4.7, Hgb 6.4 L*, Hct 20.5 L*, Plt Count 242 Imagings Data: EXAM DESCRIPTION: CT - Abdomen Pelvis Wo Contrast - 03/09/2022 8:37 am CLINICAL HISTORY: Abdominal pain, acute, nonlocalized COMPARISON: CT ABD PELVIS W CONTRAST dated 01/23/2013; Transvaginal Study Probe dated 02/05/2022 TECHNIQUE: Axial [address] imaging of the abdomen and pelvis was performed without IV contrast. No IV contrast was given because of allergy, abnormal renal function, patient refusal or physician request. No oral contrast administered. All CT scans are performed using dose optimization technique as appropriate and may include automated exposure control or mA/KV adjustment according to patient size. FINDINGS: No suspicious findings in the lung bases. The liver, spleen and pancreas show no suspicious findings on non-contrast imaging. Gallbladder is contracted around multiple gallstones. No biliary tree dilatation. No hydronephrosis or suspicious renal mass. No significant adrenal finding. Isodense renal masses and pyelonephritis cannot be excluded in the absence of IV contrast. The urinary bladder is without significant finding. IUD appears to be well positioned within the fundal and midportion of the uterus. Uterine contour is deformed by multiple fibroids. Along the left inferior margin of the fundus there is an approximately 3 centimeter fibroid. Right lateral approximately 3 centimeter fibroid seen as well. No fallopian tube or ovarian abnormality. There is no abnormal air or fluid collection in the pelvis. No gastric dilatation or gastric wall thickening. Fluid is present filling but not dilating the stomach. No duodenum abnormality seen. Proximal jejunal loops are abnormal. There is wall thickening and edema. Stranding is present in the adjacent mesenteric fat. In the proximal jejunum just distal to the ligament of Treitz there is abnormal air collection along the wall of the the jejunum extending as punctate areas of extraluminal free air. The adjacent splenic flexure region of the colon does have diverticulosis. However, no wall thickening or wall edema seen. The air is believed to be from jejunum rather than an acute diverticulitis. More distally the loops of ileum show no suspicious finding. No direct or indirect appendicitis findings. Left-sided colonic diverticulosis present without acute diverticulitis findings. No acute colon finding seen. No other area of free air or acute finding. No abscess or drainable fluid collection. No hernia, mass or bulky lymphadenopathy. No suspicious bony findings. Findings telephoned to referring physician 8:52 a.m. IMPRESSION: Wall thickening and edema involve multiple loops of jejunum with minimal amount of extra luminal free air adjacent to the proximal jejunum. No associated mass or foreign body identified. No abscess or drainable fluid collection. No free air distant from the jejunum. IUD appears to be well positioned within the multi fibroid uterus. No [employer] or pelvic acute finding identifiable. Diverticulosis without acute diverticulitis. Multi stone cholelithiasis without acute finding. 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 -No NSAIDs -Continue acute HD for HERMILA AG Acidosis in the setting of HERMILA -HD as ordered HTN with CKD -Continue Losartan -Continue Metoprolol 100mg BID in the setting of Paroxysmal Afib Severe malnutrition Hypoalbuminemia -Advance diet as tolerated -Continue Protonix -Albumin IV prn Anemia in chronic illness -Retacrit TIW -PRBC prn CKD MBD HyperPO4 -Continue Vitamin D -Continue Renvela Jejunitis with performation may be due to Mycophenolate therapy Peritonitis Perforated colon sp Colectomy with colostomy -Continue IV Abx per ID -Dilaudid IV prn -Hold Mycophenolate -Continue Protonix IV q12h; wean as tolerated -Wean Prednisone 15mg daily Plan for CT Abd/Pelvis wo IVF today for worsening leukocytosis Greater than 30min patient care Case reviewed with Dr. Pollack
[2022-03-24] MEDS ORDERED: EPOETIN ALFA 10,000 UNIT/ML VIAL SQ ONE (17:40)
[2022-03-24] MEDS: Meropenem 500 MG in NA CHLORIDE 0.9% 100 ML IV SCH (17:58)
[2022-03-24] MEDS ORDERED: ALBUMIN HUMAN 25% 100 ML IV ONE (19:30)
[2022-03-24] MEDS ORDERED: METOPROLOL TAR 50 MG TAB PO ONE (19:34)
[2022-03-24] MEDS: NEPRO SHAKE 237 ML CAN PO SCH (20:46)
[2022-03-24] MEDS: EPOETIN ALFA 10,000 UNIT/ML VIAL SQ SCH (20:46)
[2022-03-24] MEDS ORDERED: EPOETIN ALFA-EPBX 10,000 UNIT/ML VIAL ONE (20:49)
[2022-03-25 05:51] LABS: Magnesium 2.2 mg/dL (1.8-2.4)
[2022-03-25] MEDS: METOPROLOL TAR 50 MG TAB PO SCH ×2 (06:00→18:00)
--- NOTE | 2022-03-25 06:00 | P.PN ---
Date of Service: 03/25/22 Subjective: no acute events overnight feels about the same wants to get out of bed, wants sunlight ROS: 10 point ROS as noted above, otherwise negative Physical exam GEN: AOx3, fatigued appearing HEENT: normal conjunctiva, sclera anicteric CV: sinus tachycardia, trace b/l pedal edema Pulm: nonlabored respirations, clear bilaterally ABD: soft, mild tenderness in lower abdomen, ANDREW drain in place, ostomy with stool/air Neuro: AOx3, moves all extremities, slight depressed affect Problem List perforated diverticula, s/p colectomy and ostomy acute worsening of CKD 4, now on dialysis Metabolic acidosis secondary to HERMILA anemia in chronic kidney disease h/o lupus nephritis SLE hyperphosphatemia initially concerned for jejunitis possibly secondary to mycophenolate therapy patient had initial improvement, and diet was slowly advanced. she then began to have worsening abdominal pain and bloating, repeat CT (03/13): significantly increased free air managed medically per general surgery recommendations Patient worsened on 03/14 and required ex-lap, colectomy, ostomy 03/15 - continued postoperatively with low BP, pain meds dropped MAP <60, patient started on levophed and was weaned after just several hours. given gentle IVF patient developed hematoma at surgical incision - s/p I&D (03/19), ANDREW drain placement improving, tolerating diet s/p 6uPRBC in total during hospitalization. goal Hgb >7.0 Nephrology initiated IV steroids solumed 40q8h on 03/09; titrated to BID last week; and down to prednisone 20mg daily on 03/23; wean as tolerated renal function worsened, patient started dialysis 03/11, tolerating well continue HD per nephrology kincaid placed evening of 03/09, patient had some mild retention, continued for strict i/o's; now dc'd will need tunneled HD cath, awaiting improvement of leukocytosis Blood cx: pansensitive e.coli, urine cx: negative abd cultures: pseudomonas ID consulted vanc & merrem since 03/19 and 03/11, respectively - initially received zosyn diflucan added 03/23 Blood (03/09): e. coli Blood (03/13): negative Wound (03/14): pseudomonas, e.coli Blood (03/18): negative Blood (03/23): pending increasing leukocytosis likely steroid induced given continued increased of WBC, ID recommended repeat CT (03/24) negative for acute process, no obvious source of infection paroxysmal afib this hospitalization; initially on amio drip; which has been discontinued per cardiology recs, continue metoprolol continue PT, recommend inpatient rehab SW/CM consulted Code: full Dispo: inpatient rehab currently with temporary dialysis cath Time Spent Managing Pts Care (In Minutes): 35
[2022-03-25 06:09] LABS: Absolute Lymphocytes (CBC) 0.4 K/uL (0.7-4.9); Hematocrit 22.4 % (36.0-45.0); Lymphocytes % 1.2 % (15.3-44.8); MCV 82.8 fL (80-100); MPV 9.9 fL (7.6-11.3); RBC Red Blood Cell Count 2.71 M/uL (3.86-4.86)
[2022-03-25] MEDS: SEVELAMER CARBONATE 800 MG TABLET PO SCH ×3 (08:00→17:00)
[2022-03-25 08:16] LABS: Anisocytosis 1+; Blood Morphology Comment NOTED (NOT SEEN); Hypochromasia 2+; Platelet Estimate DECR; Polychromasia SLIGHT
[2022-03-25 08:17] LABS: Poikilocytosis 2+
[2022-03-25] MEDS: ALPRAZOLAM 0.25 MG TABLET PO SCH ×2 (09:00→20:35)
[2022-03-25] MEDS: NEPRO SHAKE 237 ML CAN PO SCH ×3 (09:00→20:34)
[2022-03-25] MEDS: ENSURE CLEAR 200 ML CAN PO SCH ×2 (09:00→20:34)
[2022-03-25] MEDS: VITAMIN D 5,000 UNIT CAP PO SCH (10:05)
[2022-03-25] MEDS: LOSARTAN POTASSIUM 50 MG TABLET PO SCH (10:05)
[2022-03-25] MEDS: predniSONE 10 MG TAB PO SCH (10:06)
[2022-03-25] MEDS: PANTOPRAZOLE 40 MG INJ IVP SCH ×2 (10:06→20:34)
[2022-03-25] MEDS ORDERED: ALBUMIN HUMAN 25% 200 ML IV ONE ×2 (12:51→15:00)
--- NOTE | 2022-03-25 15:37 | P.PN ---
Date of Service: 03/25/22 S: Patient has just been transferred to the floor. Says she is somewhat tired right now. Otherwise feels pretty good. O: Surgical incision looks good, ANDREW drain has minimal inside. Colostomy is working well A: Surgically patient is doing well. Her incision looks clean. I reviewed the CT scan do see the inflammation/edema of the abdominal wall. P: Continue current therapy, continue p.o. intake. Will DC drain most likely in the a.m. Patient is going to be in the rehab unit soon, and I think this is an excellent plan to get her mobilized and moving.
--- NOTE | 2022-03-25 16:09 | P.PN ---
Date of Service: 03/25/22 Nephrology (S) Pt seen on HD today, reports low appetite, affect is depressed, pt reports weakness and difficulty walking and realizes she will have to go to [facility]. Vitals, medications, blood work and imaging reviewed in the chart. General: NAD, non tachypnec HEENT: Atraumatic, NC present Neck: Supple, Rt IJ CVC Lt SC dialysis catheter Respiratory: Normal respiratory effort, b/l air entry, reduced BS at the bases Cardiovascular: Mildly tachy, reg Gastrointestinal: Surgical incision covered with dressing, colostomy, ANDREW drain, distention improved Musculoskeletal: No clubbing, No contractures Ext: No sig LE edema Integumentary: No rashes, No cyanosis Neurological: Awake, alert, non encephalopathic, no tremors or myoclonus Labs reviewed in EMR Conclusions/Impression: Stage III ARF with presenting Cr level > 4 mg/dl in the setting of hypotension, anemia, sepsis, other likely leading to ATN CKD IV underlying with proteinuria due to Lupus nephritis -Pt remains oliguric, HD today, d/c kincaid when pt is a bit more ambulatory. Plan for TDC conversion when leukocytosis is improving and/or ID gives clearance. Current CVC present for 14 days so if unable to pursue TDC conversion now, it may be prudent to exchange or place a new one, will discuss with ID. Hyperkalemia, hyperphosphatemia in the setting of renal failure -Pt on a renal diet. Will clear some phos on HD. Did order phos binder and will escalate if tolerating diet. Underlying chronic HTN with relative systolic hypotension in the setting of acute loss anemia, narcotic pain administration, other -BP stable on HD Acute on chronic anemia related to surgical losses and chronic illnesses including lupus, CKD, other -Multiple transfusions in the past few weeks, Hb remains low, cont TANIA dosing SLE with lupus nephritis. Leukocytosis -Monitor. remains off IS, on stress dose steroids. Rising leukocytosis. ID eros Joseph MD, [facility]
--- NOTE | 2022-03-25 16:18 | PN ---
Subjective: The patient is at the bedside, being helped with physical therapy to stand up. No new a cute event overnight. Objective: Vital Signs: Temperature 97.8, pulse 100, respirations 22, blood pressure 121/87. Lungs: Basal crackles. Heart: S1, S2. Regular. Abdomen: Soft, nontender. Bowel sounds present. Extremities: Trace edema. Laboratory Data: WBC 37156, hemoglobin 7.5, platelets are 121. Chemistry shows sodium 133, potassiu m 4, chloride 97, bicarb 25, BUN 61, creatinine 4, glucose is 253. Albumin level is 2. Blood cultur es done day before yesterday, no growth. CT abdomen and pelvis done yesterday shows some inflammator y changes and multiple loops of small bowel in the left abdomen with wall thickening and edema, mild edema of the lo of the terminal ileum without dilation noted. Assessment And Plan: 1.Status post diverticular perforation and hematoma evacuation. The patient's repeat CT abdomen is showing multiple loop of small bowels in the left abdomen. 2.Wall thickening and edema, most likely secondary to inflammatory response and mild edema of the wa ll, also the terminal ileum without any dilation. Continue empiric antibiotic and supportive care. 3.Leukocytosis, possibly secondary to inflammatory versus steroids. Consider repeating procalcitoni n. Continue supportive care. 4.Renal insufficiency. Continue current management. No other recommendation at this time. NF/MODL Voice ID: [id number] Report ID: [id number]
[2022-03-25] MEDS: EPOETIN ALFA 10,000 UNIT/ML VIAL SQ SCH (17:00)
[2022-03-25] MEDS: Meropenem 500 MG in NA CHLORIDE 0.9% 100 ML IV SCH (18:00)
[2022-03-26] MEDS: HYDROMORPHONE HCL 0.5 MG/0.5 ML INJ IV PRN ×3 (00:57→21:09)
[2022-03-26] MEDS: METOPROLOL TAR 50 MG TAB PO SCH ×2 (05:57→17:56)
--- NOTE | 2022-03-26 05:59 | P.PN ---
Date of Service: 03/26/22 Subjective: feels tired, intermittent abd cramping mild bleed from surgical site overnight, changed dressing x1 hgb down today, no other evidence of bleed minimal appetite ROS: 10 point ROS as noted above, otherwise negative Physical exam GEN: AOx3, fatigued appearing HEENT: normal conjunctiva, sclera anicteric CV: sinus tachycardia, trace b/l pedal edema Pulm: non-labored respirations, clear bilaterally ABD: soft, mild tenderness in lower abdomen, ANDREW drain in place, ostomy with stool/air, dressing slightly saturated with blood near umbilicus Neuro: AOx3, moves all extremities, slight depressed affect Problem List perforated diverticula, s/p colectomy and ostomy acute worsening of CKD 4, now on dialysis Metabolic acidosis secondary to HERMILA anemia in chronic kidney disease h/o lupus nephritis SLE hyperphosphatemia Patient worsened on 03/14 and required ex-lap, colectomy, ostomy 03/15 - continued postoperatively with low BP, pain meds dropped MAP <60, patient started on levophed and was weaned after just several hours. given gentle IVF patient developed hematoma at surgical incision - s/p I&D (03/19), ANDREW drain placement improving, tolerating diet poor nutrition, patient s/p 6uPRBC in total during hospitalization. goal Hgb >7.0 transfuse 2u PRBC 03/26 Nephrology initiated IV steroids solumed 40q8h on 03/09; titrated to BID last week; and down to prednisone 20mg daily on 03/23; wean as tolerated renal function worsened, patient started dialysis 03/11, tolerating well continue HD per nephrology kincaid placed evening of 03/09, patient had some mild retention, continued for strict i/o's will need tunneled HD cath Dr. Caputo consulted for placement tomorrow Blood cx: pansensitive e.coli, urine cx: negative abd cultures: pseudomonas ID consulted vanc & merrem since 03/19 and 03/11, respectively - initially received zosyn diflucan added 03/23 Blood (03/09): e. coli Blood (03/13): negative Wound (03/14): pseudomonas, e.coli Blood (03/18): negative Blood (03/23): pending given continued increased of WBC, ID recommended repeat CT (03/24) negative for acute process, no obvious source of infection leukocytosis secondary; now improving as steroids are weaned paroxysmal afib this hospitalization; initially on amio drip; which has been discontinued per cardiology recs, continue metoprolol continue PT, recommend inpatient rehab SW/CM consulted Code: full Dispo: inpatient rehab, once stable, suspect ~2-3 more days Time Spent Managing Pts Care (In Minutes): 35
[2022-03-26 06:20] LABS: Absolute Lymphocytes (CBC) 0.3 K/uL (0.7-4.9); Lymphocytes % 1.3 % (15.3-44.8); MCV 82.3 fL (80-100); MPV 9.2 fL (7.6-11.3); RBC Red Blood Cell Count 2.24 M/uL (3.86-4.86)
[2022-03-26 06:26] LABS: Hematocrit 18.5 % (36.0-45.0)
[2022-03-26 06:32] LABS: Albumin 2.4 g/dL (3.4-5.0); Bilirubin Total 0.6 mg/dL (0.2-1.0); Magnesium 2.1 mg/dL (1.8-2.4); Phosphorus 3.7 mg/dL (2.5-4.9); Potassium 3.7 mmol/L (3.5-5.1); Protein, Total 4.8 g/dL (6.4-8.2)
[2022-03-26] MEDS ORDERED: NA CHLORIDE 0.9% 250 ML IV SCH (07:00)
[2022-03-26 07:30] LABS: MCV 83.7 fL (80-100); MPV 9.8 fL (7.6-11.3); RBC Red Blood Cell Count 2.26 M/uL (3.86-4.86)
[2022-03-26 07:38] LABS: Hematocrit 18.9 % (36.0-45.0)
[2022-03-26 08:47] LABS: Anisocytosis 1+; Blood Morphology Comment NOTED (NOT SEEN); Hypochromasia 1+; Platelet Estimate DECR; Poikilocytosis 1+; Polychromasia 1+
[2022-03-26] MEDS ORDERED: CEFAZOLIN 1 GM in NA CHLORIDE 0.9% 50 ML IVPB SCH (09:00)
[2022-03-26] MEDS: ENSURE CLEAR 200 ML CAN PO SCH ×2 (09:00→21:10)
[2022-03-26] MEDS: NEPRO SHAKE 237 ML CAN PO SCH ×3 (09:00→21:10)
[2022-03-26] MEDS ORDERED: POTASSIUM CL SA 10 MEQ TAB PO ONE (09:00)
[2022-03-26] MEDS: PANTOPRAZOLE 40 MG INJ IVP SCH ×2 (09:28→21:09)
[2022-03-26] MEDS: predniSONE 10 MG TAB PO SCH (09:30)
[2022-03-26] MEDS: VITAMIN D 5,000 UNIT CAP PO SCH (09:30)
[2022-03-26] MEDS: SEVELAMER CARBONATE 800 MG TABLET PO SCH ×3 (09:31→17:56)
[2022-03-26] MEDS: LOSARTAN POTASSIUM 50 MG TABLET PO SCH (09:31)
[2022-03-26] MEDS: ALPRAZOLAM 0.25 MG TABLET PO SCH ×2 (09:32→21:09)
--- NOTE | 2022-03-26 10:23 | P.PN ---
Date of Service: 03/26/22 Vital Signs Temp Pulse Resp BP Pulse Ox 98.2 F 106 H 16 163/96 H 96 03/26/22 08:00 03/26/22 08:00 03/26/22 08:00 03/26/22 08:00 03/26/22 08:00 Medications Acetaminophen (Acetaminophen 500 Mg Tab) 500 mg PO Q6H PRN PRN Reason: Pain scale 2-4 (Mild) Last Admin: 03/23/22 17:29 Dose: 500 mg Hydrocodone Bitart/Acetaminophen (Hydrocodone/Apap 7.5/325 Mg Tab) 1 tab PO Q4H PRN PRN Reason: Pain scale 8-10 (Severe) Last Admin: 03/22/22 23:37 Dose: 1 tab Cholecalciferol (Vitamin D 5,000 Unit Cap) 5,000 unit PO DAILY [facility] Last Admin: 03/26/22 09:30 Dose: 5,000 unit Heparin Sodium (Porcine) (Heparin 1,000 Unit/Ml Vial) 2,000 unit IV EVERY HD PRN PRN Reason: DIALYSIS Last Admin: 03/25/22 15:18 Dose: 2,000 unit Heparin Sodium (Porcine) (Heparin 1,000 Unit/Ml Vial) 4,000 unit IV EVERY HD PRN PRN Reason: DIALYSIS CATHETER CARE Last Admin: 03/25/22 18:24 Dose: 4,000 unit Hydralazine HCl (Hydralazine Hcl 20 Mg/Ml Vial) 10 mg IV Q6HP PRN PRN Reason: Titrate to SBP (MUST DEFINE) Last Admin: 03/23/22 15:25 Dose: 10 mg Hydromorphone HCl (Hydromorphone Hcl 0.5 Mg/0.5 Ml Inj) 0.5 mg IV Q2H PRN PRN Reason: Pain scale 5-7 (Moderate) Last Admin: 03/24/22 08:11 Dose: 0.5 mg Sodium Chloride (Sodium Chloride) 250 mls @ 0 mls/hr IV .Q0M ABDI Last Admin: 03/22/22 20:00 Dose: 250 mls Sodium Chloride (Sodium Chloride) 250 mls @ 0 mls/hr IV .Q0M ABDI Vancomycin HCl 1 gm/ Sodium (Chloride) 250 mls @ 250 mls/hr IVPB AFTER EACH DIALYSIS [facility] Last Admin: 03/23/22 20:26 Dose: 250 mls Meropenem 500 mg/ Sodium (Chloride) 100 mls @ 200 mls/hr IV Q24H [facility] Last Admin: 03/25/22 18:00 Dose: Not Given Methylprednisolone Sodium Succinate (Methylprednisolone 40 Mg Inj) 40 mg IV Q12H [facility] Last Admin: 03/23/22 05:27 Dose: 40 mg Metoprolol Tartrate (Metoprolol Tar 50 Mg Tab) 50 mg PO BID 6AM 6PM [facility] Last Admin: 03/23/22 05:27 Dose: 50 mg Pantoprazole Sodium (Pantoprazole 40 Mg Inj) 40 mg IVP Q12HR [facility]; Protocol Last Admin: 03/26/22 09:28 Dose: 40 mg Phenol (Phenol 1.4% Oral Jackson 180ml) 2 appl MM Q4H PRN PRN Reason: SORE THROAT Last Admin: 03/15/22 11:02 Dose: 2 appl Sevelamer Carbonate (Sevelamer Carbonate 800 Mg Tablet) 800 mg PO TIDWM [facility] Last Admin: 03/26/22 09:31 Dose: 800 mg Sodium Chloride (Flush Normal Saline 10 Ml) 10 ml IV BID [facility] Last Admin: 03/26/22 09:00 Dose: 10 ml Sodium Chloride (Sodium Chloride 0.9% 10ml Inj) 10 ml IV UD PRN PRN Reason: Diluant Microbiology Results 03/09/22 06:47 Clean Catch Urine Daniels Count - Final No growth. 03/09/22 06:47 Clean Catch Urine - Final No growth. Assessment/ Plan: Nephrology No chest pain No dyspnea Persistent LE weakness Improving appetite No acute events overnight Vitals, medications, blood work and imaging reviewed in the chart. General: Oriented x3, Cooperative, NAD HEENT: Atraumatic Neck: Supple Respiratory: Normal respiratory effort Cardiovascular: Regular rate/rhythm, Edema Gastrointestinal: Tenderness Musculoskeletal: No clubbing, No contractures Integumentary: No rashes, No cyanosis Neurological: Normal speech Laboratory Data (last 24 hrs) 03/09/22 06:19: Sodium 138, Potassium 4.5, BUN 79 H, Creatinine 6.88 H*, Glucose 121 H, Total Bilirubin 0.1 L, AST 6 L, ALT 21, Alkaline Phosphatase 57, Lipase 129 03/09/22 06:19: WBC 4.7, Hgb 6.4 L*, Hct 20.5 L*, Plt Count 242 Imagings Data: EXAM DESCRIPTION: CT - Abdomen Pelvis Wo Contrast - 03/09/2022 8:37 am CLINICAL HISTORY: Abdominal pain, acute, nonlocalized COMPARISON: CT ABD PELVIS W CONTRAST dated 01/23/2013; Transvaginal Study Probe dated 02/05/2022 TECHNIQUE: Axial [address] imaging of the abdomen and pelvis was performed without IV contrast. No IV contrast was given because of allergy, abnormal renal function, patient refusal or physician request. No oral contrast administered. All CT scans are performed using dose optimization technique as appropriate and may include automated exposure control or mA/KV adjustment according to patient size. FINDINGS: No suspicious findings in the lung bases. The liver, spleen and pancreas show no suspicious findings on non-contrast imaging. Gallbladder is contracted around multiple gallstones. No biliary tree dilatation. No hydronephrosis or suspicious renal mass. No significant adrenal finding. Isodense renal masses and pyelonephritis cannot be excluded in the absence of IV contrast. The urinary bladder is without significant finding. IUD appears to be well positioned within the fundal and midportion of the uterus. Uterine contour is deformed by multiple fibroids. Along the left inferior margin of the fundus there is an approximately 3 centimeter fibroid. Right lateral approximately 3 centimeter fibroid seen as well. No fallopian tube or ovarian abnormality. There is no abnormal air or fluid collection in the pelvis. No gastric dilatation or gastric wall thickening. Fluid is present filling but not dilating the stomach. No duodenum abnormality seen. Proximal jejunal loops are abnormal. There is wall thickening and edema. Stranding is present in the adjacent mesenteric fat. In the proximal jejunum just distal to the ligament of Treitz there is abnormal air collection along the wall of the the jejunum extending as punctate areas of extraluminal free air. The adjacent splenic flexure region of the colon does have diverticulosis. However, no wall thickening or wall edema seen. The air is believed to be from jejunum rather than an acute diverticulitis. More distally the loops of ileum show no suspicious finding. No direct or indirect appendicitis findings. Left-sided colonic diverticulosis present without acute diverticulitis findings. No acute colon finding seen. No other area of free air or acute finding. No abscess or drainable fluid collection. No hernia, mass or bulky lymphadenopathy. No suspicious bony findings. Findings telephoned to referring physician 8:52 a.m. IMPRESSION: Wall thickening and edema involve multiple loops of jejunum with minimal amount of extra luminal free air adjacent to the proximal jejunum. No associated mass or foreign body identified. No abscess or drainable fluid collection. No free air distant from the jejunum. IUD appears to be well positioned within the multi fibroid uterus. No AUTOMATIC SPOOLER OPERATOR or pelvic acute finding identifiable. Diverticulosis without acute diverticulitis. Multi stone cholelithiasis without acute finding. 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 -No NSAIDs -Continue acute HD for HERMILA -Repeat HBV panel AG Acidosis in the setting of HERMILA -HD as ordered HTN with CKD -Continue Losartan -Continue Metoprolol 100mg BID in the setting of Paroxysmal Afib Severe malnutrition Hypoalbuminemia -Advance diet as tolerated -Change Protonix to PO -Albumin IV prn Anemia in chronic illness -Retacrit TIW -PRBC as ordered CKD MBD HyperPO4 -Continue Vitamin D -Continue Renvela Jejunitis with performation may be due to Mycophenolate therapy Peritonitis Perforated colon sp Colectomy with colostomy -Continue IV Abx per ID -Dilaudid IV prn -Hold Mycophenolate -Continue Protonix IV q12h; wean as tolerated -Wean Prednisone 10mg daily Case reviewed with Dr. Pollack
[2022-03-26] MEDS: HYDRALAZINE HCL 20 MG/ML VIAL IV PRN (12:54)
[2022-03-26] MEDS: Meropenem 500 MG in NA CHLORIDE 0.9% 100 ML IV SCH (17:57)
[2022-03-26 20:15] LABS: Hematocrit 28.4 % (36.0-45.0)
[2022-03-27 04:59] LABS: Hematocrit 26.2 % (36.0-45.0); MPV 9.6 fL (7.6-11.3); RBC Red Blood Cell Count 3.09 M/uL (3.86-4.86)
[2022-03-27 05:21] LABS: Magnesium 2.1 mg/dL (1.8-2.4)
--- NOTE | 2022-03-27 05:58 | P.PN ---
Date of Service: 03/27/22 Subjective: No acute events overnight Patient was able to eat more yesterday To undergo tunneled catheter placement today No new symptoms ROS: 10 point ROS as noted above, otherwise negative Physical exam GEN: AOx3, NAD HEENT: normal conjunctiva, sclera anicteric CV: mild sinus tachycardia, trace b/l pedal edema Pulm: non-labored respirations, clear bilaterally ABD: soft, mild tenderness in lower abdomen, ANDREW drain in place, ostomy with stool/air, dressing minimally saturated with blood near umbilicus Neuro: AOx3, moves all extremities, depressed affect Problem List perforated diverticula, s/p colectomy and ostomy acute worsening of CKD 4, now on dialysis Metabolic acidosis secondary to HERMILA anemia in chronic kidney disease h/o lupus nephritis SLE hyperphosphatemia Patient worsened on 03/14 and required ex-lap, colectomy, ostomy 03/15 - continued postoperatively with low BP, pain meds dropped MAP <60, patient started on levophed and was weaned after just several hours. given gentle IVF patient developed hematoma at surgical incision - s/p I&D (03/19), ANDREW drain placement improving, tolerating diet poor nutrition, patient s/p 6uPRBC in total during hospitalization. goal Hgb >7.0 transfuse 2u PRBC 03/26 Nephrology initiated IV steroids solumed 40q8h on 03/09; titrated to BID last week; and down to prednisone 20mg daily on 03/23; wean as tolerated leukocytosis resolving in relation to weaning steroids renal function worsened, patient started dialysis 03/11, tolerating well continue HD per nephrology kincaid placed evening of 03/09, patient had some mild retention, continued for strict i/o's will need tunneled HD cath - to be done today Blood cx: pansensitive e.coli, urine cx: negative abd cultures: pseudomonas ID consulted vanc & merrem since 03/19 and 03/11, respectively - initially received zosyn diflucan added 03/23 Blood (03/09): e. coli Blood (03/13): negative Wound (03/14): pseudomonas, e.coli Blood (03/18): negative Blood (03/23): negative given continued increased of WBC, ID recommended repeat CT (03/24) negative for acute process, no obvious source of infection leukocytosis secondary to steroids; now improving as steroids are weaned paroxysmal afib this hospitalization - post-operatively; initially on amio drip; which has been discontinued per cardiology recs, continue metoprolol continue PT, recommend inpatient rehab SW/CM consulted Code: full Dispo: inpatient rehab, suspect Wednesday Time Spent Managing Pts Care (In Minutes): 35
[2022-03-27] MEDS: METOPROLOL TAR 50 MG TAB PO SCH ×2 (06:16→18:37)
[2022-03-27] MEDS: PANTOPRAZOLE 40MG TABLET PO SCH (06:16)
[2022-03-27] MEDS ORDERED: NA CHLORIDE 0.9% 500 ML ONE (07:29)
[2022-03-27] MEDS ORDERED: CEFAZOLIN SODIUM 1 GM/VIAL ONE (07:46)
[2022-03-27] MEDS: SEVELAMER CARBONATE 800 MG TABLET PO SCH ×3 (08:00→17:12)
[2022-03-27] MEDS: predniSONE 10 MG TAB PO SCH (08:00)
[2022-03-27] MEDS ORDERED: FENTANYL CITR 100 MCG/2 ML ONE (08:13)
[2022-03-27] MEDS ORDERED: LIDOCAINE 2% MPF 5 ML VIAL ONE (08:14)
[2022-03-27] MEDS ORDERED: ONDANSETRON 4 MG/2 ML VIAL ONE (08:14)
[2022-03-27] MEDS ORDERED: MIDAZOLAM HCL 2 MG/2 ML INJ ONE (08:14)
[2022-03-27] MEDS ORDERED: NS 0.9% VIAL 10 ML ONE (08:41)
[2022-03-27] MEDS ORDERED: LIDOCAINE 1% 20 ML MDV ONE (08:42)
[2022-03-27] MEDS ORDERED: NA CHLORIDE 0.9% 100 ML ONE (08:42)
[2022-03-27] MEDS ORDERED: HEPARIN 5000 UNIT/ML 1 ML VIAL ONE ×2 (08:42→08:43)
[2022-03-27] MEDS ORDERED: HYDROCORTISONE SUC 250 MG INJ ONE (08:55)
[2022-03-27] MEDS ORDERED: METHYLPREDNISOLONE 125 MG INJ ONE (08:56)
[2022-03-27] MEDS: VITAMIN D 5,000 UNIT CAP PO SCH (09:00)
[2022-03-27] MEDS: NEPRO SHAKE 237 ML CAN PO SCH ×3 (09:00→20:53)
[2022-03-27] MEDS: ALPRAZOLAM 0.25 MG TABLET PO SCH ×2 (09:00→20:52)
[2022-03-27] MEDS: LOSARTAN POTASSIUM 50 MG TABLET PO SCH (09:00)
[2022-03-27] MEDS: ENSURE CLEAR 200 ML CAN PO SCH ×2 (09:00→20:53)
--- NOTE | 2022-03-27 10:03 | P.OP ---
Date of Service: 03/27/22 Preop diagnosis: End-stage renal disease Postop diagnosis: Same Procedure performed: Right IJ Tesio catheter placement, interpretation of intraoperative fluoroscopy Surgeon: Filemon Caputo MD Chicken Boner: None Estimated blood loss: Minimal Specimen: None Findings: Normal anatomy Anesthesia: General Complications: None Drains: None Fluids and blood products: Not applicable Disposition: Recovery room Operative note: Patient brought to the OR and placed in the supine position. General anesthesia begun. Patient prepped and draped in the usual sterile fashion. Then, guidewire passed through the central line that was present in the right IJ. Position confirmed with fluoroscopy. Counterincision made on the right anterior chest. Tunneling device used to tunnel the Tesio catheter between the 2 wounds. Seldinger technique used. Vein dilated. Tip of the catheter placed in the SVC under fluoroscopy. Catheter flushed with heparin and packed with heparin with good blood flow. 3-0 chromic used to approximate subcutaneous tissue and close skin. 3-0 nylon used to secure the tube to the chest wall. Sterile dressing applied. Patient's Abe catheter on the left subclavian region was removed. Pressure dressing applied. Then patient awakened and taken to recovery room in good general condition. Chest x-ray has been ordered. CC:
[2022-03-27] MEDS: LABETALOL 20 MG/4ML SYRINGE IV ONE ×4 (10:36→11:16)
--- NOTE | 2022-03-27 10:41 | RAD REPORT ---
EXAM DESCRIPTION: RAD - Chest Single View - 03/27/2022 10:35 am CLINICAL HISTORY: S/P Tesio Chest pain. COMPARISON: Chest Single View dated 03/14/2022; Chest Single View dated 03/11/2022; Chest Single View dated 02/11/2022; Chest Single View dated 11/03/2021 FINDINGS: Portable technique limits examination quality. Right-sided venous catheter has tip in the region of the right atrium. No postprocedure pneumothorax.
[2022-03-27] MEDS ORDERED: HYDRALAZINE HCL 20 MG/ML VIAL ONE (11:35)
--- NOTE | 2022-03-27 11:57 | PREOPCON ---
Date of Consultation: 03/26/2022 Reason For Consultation: Patient needs a tunneled dialysis catheter. History Of Present Illness: Patient is a 32-year-old female, who has acute renal failure, end-stage renal disease, who needs a tunneled dialysis catheter prior to discharge. She has had a Jennifer pro cedure done for perforated colon and she requires long-term dialysis. Today, she is awake, alert. D enies any fever or chills. No sore throat, runny nose, cough, headaches, or dizziness. No chest ashley n. Review of Systems: Otherwise unremarkable. Past Medical History: Lupus, hypertension, and anemia. Past Surgical History: Recent exploratory laparotomy with Jennifer procedure, oral surgery, dialysis catheter insertion and removal. Allergies: NONE. Social History: Patient does not smoke or drink alcohol. Family History: Noncontributory. Physical Examination: Vital Signs: Stable. Blood pressure is slightly elevated, 188/108; heart rate is within normal limi ts as well as respiratory rate and she is afebrile. General: She is awake, alert, and oriented x3. Head and Neck: No masses. There is a central line in the right IJ region and there is a temporary d ialysis catheter in the left subclavian. Chest: Clear. Heart: S1 and S2. Abdomen: Soft. Extremities: Neurovascularly intact. Neuro: Nonfocal. Laboratory Data: Shows a white count of 19.2, H and H of 8.8 and 26.2. Chemistry reviewed. Potassi um is 4.0. Assessment: A 32-year-old female with multiple medical problems with end-stage renal disease requiri ng long-term hemodialysis. Recommendations: We will proceed with placement of a Tesio catheter. We will try to use a guidewire over the central line to place it in the right side of the circulatory system. Patient understands the risks, benefits, and alternatives and agrees to procedure. /MODL Voice ID: [id number] Report ID: [id number]
--- NOTE | 2022-03-27 12:59 | RAD REPORT ---
EXAM DESCRIPTION: RAD - Fluoroscopy <1 Hour - 03/27/2022 12:53 pm CLINICAL HISTORY: DIALYSIS CATH PLACEMENT COMPARISON: US. GUIDANCE FOR NDL PLACE. dated 01/26/2013 FINDINGS: Fluoroscopy time: 0.1 minutes
[2022-03-27] MEDS: HYDROMORPHONE HCL 0.5 MG/0.5 ML INJ IV PRN (13:03)
[2022-03-27] MEDS ORDERED: propofoL 200 MG/20 ML VIAL IV ONE (13:33)
[2022-03-27] MEDS ORDERED: GLYCOPYRROLATE 0.2 MG/ML SYR ONE (13:42)
[2022-03-27] MEDS ORDERED: NEOSTIGMINE 1 MG/ML -10 ML VIAL ONE (13:42)
[2022-03-27] MEDS: Meropenem 500 MG in NA CHLORIDE 0.9% 100 ML IV SCH (17:12)
[2022-03-27] MEDS: EPOETIN ALFA 10,000 UNIT/ML VIAL SQ SCH (17:12)
[2022-03-27] MEDS: HYDRALAZINE HCL 20 MG/ML VIAL IV PRN (20:51)
[2022-03-27] MEDS: HYDROCODONE/APAP 7.5/325 MG TAB PO PRN (21:37)
[2022-03-28] MEDS: HYDROMORPHONE HCL 0.5 MG/0.5 ML INJ IV PRN ×2 (01:18→13:50)
[2022-03-28 04:40] LABS: Hematocrit 25.8 % (36.0-45.0); MCV 83.2 fL (80-100); MPV 9.2 fL (7.6-11.3)
[2022-03-28] MEDS: PANTOPRAZOLE 40MG TABLET PO SCH (05:09)
[2022-03-28] MEDS: HYDROCODONE/APAP 7.5/325 MG TAB PO PRN ×2 (05:09→09:02)
[2022-03-28] MEDS: METOPROLOL TAR 50 MG TAB PO SCH ×2 (05:09→17:15)
--- NOTE | 2022-03-28 05:53 | P.PN ---
Date of Service: 03/28/22 Subjective: Improving Eating more Still has some slight serosanguineous output around umbilicus Back pain at night was worse, ongoing throughout hospitalization, no abd pain ROS: 10 point ROS as noted above, otherwise negative Physical exam GEN: AOx3, NAD HEENT: normal conjunctiva, sclera anicteric CV: mild sinus tachycardia, trace b/l pedal edema Pulm: non-labored respirations, clear bilaterally ABD: soft, mild tenderness in lower abdomen, ANDREW drain in place, ostomy with stool/air, dressing minimally saturated with blood near umbilicus, no surrounding erythema, no rebound tenderness Neuro: AOx3, moves all extremities, depressed affect Problem List perforated diverticula, s/p colectomy and ostomy acute worsening of CKD 4, now on dialysis Metabolic acidosis secondary to HERMILA anemia in chronic kidney disease h/o lupus nephritis SLE hyperphosphatemia Protein calorie malnutrition, severe Patient worsened on 03/14 and required ex-lap, colectomy, ostomy 03/15 - continued postoperatively with low BP, pain meds dropped MAP <60, patient started on levophed and was weaned after just several hours. given gentle IVF patient developed hematoma at surgical incision - s/p I&D (03/19), ANDREW drain placement improving, tolerating diet P.o. intake improving s/p 8uPRBC in total during hospitalization. goal Hgb >7.0 last transfused 2u PRBC 03/26 Hemoglobin stable Nephrology initiated IV steroids solumed 40q8h on 03/09; titrated to BID last week; and down to prednisone 20mg daily on 03/23; wean as tolerated leukocytosis resolving in relation to weaning steroids renal function worsened, patient started dialysis 03/11, tolerating well continue HD per nephrology kincaid placed evening of 03/09, patient had some mild retention, continued for strict i/o's will need tunneled HD cath - to be done today Blood cx: pansensitive e.coli, urine cx: negative ; abd cultures: pseudomonas ID consulted vanc & merrem since 03/19 and 03/11, respectively - initially received zosyn diflucan added 03/23 Blood (03/09): e. coli Blood (03/13): negative Wound (03/14): pseudomonas, e.coli Blood (03/18): negative Blood (8/1): negative given continued increased of WBC, ID recommended repeat CT (03/24) negative for acute process, no obvious source of infection leukocytosis secondary to steroids; now improving as steroids are weaned vanc dc'd paroxysmal afib earlier this hospitalization - post-operatively; initially on amio drip; which has been discontinued per cardiology recs, continue metoprolol continue PT, recommended inpatient rehab SW/CM consulted Code: full Dispo: inpatient rehab, tentatively plan for Wednesday Time Spent Managing Pts Care (In Minutes): 35
[2022-03-28] MEDS: ENSURE CLEAR 200 ML CAN PO SCH ×2 (09:00→21:00)
[2022-03-28] MEDS: ALPRAZOLAM 0.25 MG TABLET PO SCH (09:00)
[2022-03-28] MEDS: VITAMIN D 5,000 UNIT CAP PO SCH (09:03)
[2022-03-28] MEDS: SEVELAMER CARBONATE 800 MG TABLET PO SCH ×3 (09:03→17:00)
[2022-03-28] MEDS: predniSONE 10 MG TAB PO SCH (09:04)
[2022-03-28] MEDS: LOSARTAN POTASSIUM 50 MG TABLET PO SCH (09:04)
[2022-03-28] MEDS: NEPRO SHAKE 237 ML CAN PO SCH ×3 (09:05→21:00)
[2022-03-28] MEDS ORDERED: ALPRAZOLAM 0.25 MG TABLET PO PRN (09:53)
[2022-03-28] MEDS ORDERED: CYCLOBENZAPRINE 10 MG TAB PO PRN (16:36)
[2022-03-28] MEDS: Meropenem 500 MG in NA CHLORIDE 0.9% 100 ML IV SCH (17:16)
--- NOTE | 2022-03-28 17:53 | RAD REPORT ---
EXAM DESCRIPTION: RAD - Abdomen Single View - 03/28/2022 5:46 pm CLINICAL HISTORY: Worsening Abd Distention/ Pain. Ostomy. Pain COMPARISON: Abdomen Pelvis Wo Contrast dated 03/24/2022 FINDINGS: The bowel gas pattern is non-obstructive. No evidence of free air or pneumatosis. No suspi cious calcifications. No significant bony findings. Midline surgical donnie. IMPRESSION: Negative examination.
[2022-03-28] MEDS ORDERED: METOCLOPRAMIDE 10 MG/2mL INJ IV ONE (19:00)
--- NOTE | 2022-03-28 22:02 | RAD REPORT ---
EXAM DESCRIPTION: CT - Abdomen Pelvis Wo Contrast - 03/28/2022 9:54 pm CLINICAL HISTORY: Abdominal pain. abdominal pain COMPARISON: Abdomen Pelvis Wo Contrast dated 03/24/2022 TECHNIQUE: CT imaging of the abdomen and pelvis was performed without contrast. Solid organ and vasc ular assessment is limited due to lack of IV contrast. All CT scans are performed using dose optimization technique as appropriate and may include automated exposure control or mA/KV adjustment according to patient size. FINDINGS: Small bilateral pleural effusions. The liver, spleen, pancreas, adrenal glands and kidneys are within normal limits for a limited non-co ntrast examination.Cholelithiasis. Mild fluid is seen in the left upper quadrant and in the pelvis. Mildly thickened and edematous small bowel loops are seen in the left abdomen. A left lower quadrant ostomy is present. The appendix is not identified as a discrete structure, however, no secondary findings of appendicitis are identified . Uterine fibroid. The osseous structures are within normal limits. IMPRESSION: Mild thickening of small bowel loops in the left abdomen could represent mild inflammati on/ enteritis. No bowel obstruction is present. Cholelithiasis. A limited non-contrast examination was performed as detailed.
[2022-03-29] MEDS: HYDROMORPHONE HCL 0.5 MG/0.5 ML INJ IV PRN ×3 (03:29→22:31)
[2022-03-29 04:40] LABS: Absolute Lymphocytes (CBC) 0.5 K/uL (0.7-4.9); Hematocrit 31.7 % (36.0-45.0); Lymphocytes % 2.2 % (15.3-44.8); MCV 83.9 fL (80-100); MPV 9.6 fL (7.6-11.3); RBC Red Blood Cell Count 3.78 M/uL (3.86-4.86)
[2022-03-29 04:49] LABS: Bilirubin Total 0.4 mg/dL (0.2-1.0); Phosphorus 2.9 mg/dL (2.5-4.9); Potassium 3.7 mmol/L (3.5-5.1); Protein, Total 4.6 g/dL (6.4-8.2)
--- NOTE | 2022-03-29 05:59 | P.PN ---
Date of Service: 03/29/22 Subjective: ANDREW drain removed yesterday early afternoon Around 45 PM, patient was reporting increasing abdominal distention, no tenderness, and felt like she had less output out of her ostomy Abdominal x-ray without any acute findings of concern. She continued to have pain, which is a clinical change since previous days CT obtained Patient feeling better this morning ROS: 10 point ROS as noted above, otherwise negative Physical exam GEN: AOx3, NAD HEENT: normal conjunctiva, sclera anicteric CV: sinus tachycardia, trace b/l pedal edema Pulm: non-labored respirations, clear bilaterally ABD: soft, mild tenderness in lower abdomen, ostomy with stool/air, no rebound tenderness Neuro: AOx3, moves all extremities Problem List perforated diverticula, s/p colectomy and ostomy acute worsening of CKD 4, now on dialysis Metabolic acidosis secondary to HERMILA anemia in chronic kidney disease h/o lupus nephritis SLE hyperphosphatemia Protein calorie malnutrition, severe Patient worsened on 03/14 and required ex-lap, colectomy, ostomy 03/15 - continued postoperatively with low BP, pain meds dropped MAP <60, patient started on levophed and was weaned after just several hours. given gentle IVF patient developed hematoma at surgical incision - s/p I&D (03/19), ANDREW drain placement (removed 03/28) improving, tolerating diet s/p 8uPRBC in total during hospitalization. goal Hgb >7.0 last transfused 2u PRBC 03/26 Hemoglobin stable Nephrology initiated IV steroids solumed 40q8h on 03/09; titrated to BID last week; and down to prednisone 20mg daily on 03/23 and has further been weaned leukocytosis was resolving in relation to weaning steroids WBCs increased 03/29, afebrile, clinically appears much improved, more comfortable, minimal abdominal pain renal function worsened, patient started dialysis 03/11, tolerating well continue HD per nephrology kincaid placed evening of 03/09, patient had some mild retention, continued for strict i/o's will need tunneled HD cath - to be done today Blood cx: pansensitive e.coli, urine cx: negative ; abd cultures: pseudomonas ID consulted vanc & merrem since 03/19 and 03/11, respectively - initially received zosyn diflucan added 03/23 Blood (03/09): e. coli Blood (03/13): negative Wound (03/14): pseudomonas, e.coli Blood (03/18): negative Blood (03/23): negative given continued increased of WBC, ID recommended repeat CT (03/24) negative for acute process, no obvious source of infection Repeat CT (03/28): Mild thickening of small bowel loops in the left abdomen, could represent mild inflammation/enteritis. No bowel obstruction is present. paroxysmal afib earlier this hospitalization - post-operatively; briefly was on a amiodarone drip, continued on metoprolol continue PT, recommended inpatient rehab SW/CM consulted Code: full Dispo: inpatient rehab, ~1-2 days Pending further improvement Time Spent Managing Pts Care (In Minutes): 35
[2022-03-29] MEDS: METOPROLOL TAR 50 MG TAB PO SCH ×2 (06:26→17:05)
[2022-03-29] MEDS: PANTOPRAZOLE 40MG TABLET PO SCH (06:26)
[2022-03-29 07:49] LABS: Platelet Estimate DECR
[2022-03-29 07:50] LABS: Anisocytosis 1+; Blood Morphology Comment NOTED (NOT SEEN); Hypochromasia 1+; Poikilocytosis 1+; Teardrop Cell 1+
--- NOTE | 2022-03-29 08:37 | P.PN ---
Date of Service: 03/27/22 Vital Signs Temp Pulse Resp BP Pulse Ox 97.7 F 86 18 122/77 96 03/29/22 04:00 03/29/22 06:26 03/29/22 04:00 03/29/22 06:26 03/29/22 04:00 Medications Acetaminophen (Acetaminophen 500 Mg Tab) 500 mg PO Q6H PRN PRN Reason: Pain scale 2-4 (Mild) Last Admin: 03/23/22 17:29 Dose: 500 mg Hydrocodone Bitart/Acetaminophen (Hydrocodone/Apap 7.5/325 Mg Tab) 1 tab PO Q4H PRN PRN Reason: Pain scale 8-10 (Severe) Last Admin: 03/28/22 09:02 Dose: 1 tab Alprazolam (Alprazolam 0.25 Mg Tablet) 0.25 mg PO BID PRN PRN Reason: ANXIETY Cholecalciferol (Vitamin D 5,000 Unit Cap) 5,000 unit PO DAILY [facility] Last Admin: 03/28/22 09:03 Dose: 5,000 unit Cyclobenzaprine HCl (Cyclobenzaprine 10 Mg Tab) 10 mg PO BIDP PRN PRN Reason: MUSCLE SPASMS Enteral Nutritional Formula (Ensure Clear 200 Ml Can) 237 ml PO BID [facility] Last Admin: 03/28/22 21:00 Dose: 237 ml Enteral Nutritional Formula (Nepro Shake 237 Ml Can) 237 ml PO TID [facility] Last Admin: 03/28/22 21:00 Dose: Not Given Epoetin Toni (Epoetin Toni 10,000 Unit/Ml Vial) 10,000 unit SQ M,W,F [facility] Last Admin: 03/27/22 17:12 Dose: 10,000 unit Heparin Sodium (Porcine) (Heparin 1,000 Unit/Ml Vial) 2,000 unit IV EVERY HD PRN PRN Reason: DIALYSIS Last Admin: 03/27/22 09:37 Dose: 1,000 unit Heparin Sodium (Porcine) (Heparin 1,000 Unit/Ml Vial) 4,000 unit IV EVERY HD PRN PRN Reason: DIALYSIS [facility]HE[facility] Last Admin: 03/27/22 16:42 Dose: 4,000 unit Hydralazine HCl (Hydralazine Hcl 20 Mg/Ml Vial) 10 mg IV Q6HP PRN PRN Reason: Titrate to SBP (MUST DEFINE) Last Admin: 03/27/22 20:51 Dose: 10 mg Hydromorphone HCl (Hydromorphone Hcl 0.5 Mg/0.5 Ml Inj) 0.5 mg IV Q4H PRN PRN Reason: Pain scale 5-7 (Moderate) Last Admin: 03/29/22 03:29 Dose: 0.5 mg Meropenem 500 mg/ Sodium (Chloride) 100 mls @ 200 mls/hr IV Q24H [facility] Last Admin: 03/28/22 17:16 Dose: 100 mls Fluconazole (Diflucan 400 Mg/200 Ml Iv (Premix)) 400 mg in 200 mls @ 100 mls/hr IV AFTER EACH DIALYSIS [facility] Sodium Chloride (Sodium Chloride) 250 mls @ 0 mls/hr IV .Q0M [facility] Losartan Potassium (Losartan Potassium 50 Mg Tablet) 25 mg PO DAILY [facility] Last Admin: 03/28/22 09:04 Dose: 25 mg Metoprolol Tartrate (Metoprolol Tar 50 Mg Tab) 100 mg PO BID 6AM 6PM [facility] Last Admin: 03/29/22 06:26 Dose: 100 mg Pantoprazole Sodium (Pantoprazole 40mg Tablet) 40 mg PO DAILYAC [facility]; Protocol Last Admin: 03/29/22 06:26 Dose: 40 mg Phenol (Phenol 1.4% Oral [place] 180ml) 2 appl MM Q4H PRN PRN Reason: SORE THROAT Last Admin: 03/15/22 11:02 Dose: 2 appl Potassium Chloride (Potassium Cl Sa 10 Meq Tab) 20 meq PO 1X ONE Stop: 03/29/22 09:01 Prednisone (Prednisone 10 Mg Tab) 10 mg PO DAILY WITH BREAKFAST [facility] Last Admin: 03/28/22 09:04 Dose: 10 mg Sevelamer Carbonate (Sevelamer Carbonate 800 Mg Tablet) 800 mg PO TIDWM [facility] Last Admin: 03/28/22 17:00 Dose: Not Given Sodium Chloride (Flush Normal Saline 10 Ml) 10 ml IV BID [facility] Last Admin: 03/28/22 22:06 Dose: 10 ml Sodium Chloride (Sodium Chloride 0.9% 10ml Inj) 10 ml IV UD PRN PRN Reason: Diluant Microbiology Results 03/09/22 06:47 Clean Catch Urine [place] Count - Final No growth. 03/09/22 06:47 Clean Catch Urine - Final No growth. Assessment/ Plan: Nephrology No chest pain No dyspnea Persistent LE weakness Fair appetite No acute events overnight Vitals, medications, blood work and imaging reviewed in the chart. General: Oriented x3, Cooperative, NAD HEENT: Atraumatic Neck: Supple Respiratory: Normal respiratory effort Cardiovascular: Regular rate/rhythm, Edema Gastrointestinal: Tenderness Musculoskeletal: No clubbing, No contractures Integumentary: No rashes, No cyanosis Neurological: Normal speech Laboratory Data (last 24 hrs) 03/09/22 06:19: Sodium 138, Potassium 4.5, BUN 79 H, Creatinine 6.88 H*, Glucose 121 H, Total Bilirubin 0.1 L, AST 6 L, ALT 21, Alkaline Phosphatase 57, Lipase 129 03/09/22 06:19: WBC 4.7, Hgb 6.4 L*, Hct 20.5 L*, Plt Count 242 Imagings Data: EXAM DESCRIPTION: CT - Abdomen Pelvis Wo Contrast - 03/09/2022 8:37 am CLINICAL HISTORY: Abdominal pain, acute, nonlocalized COMPARISON: CT ABD PELVIS W CONTRAST dated 01/23/2013; Transvaginal Study Probe dated 02/05/2022 TECHNIQUE: Axial [address] imaging of the abdomen and pelvis was performed without IV contrast. No IV contrast was given because of allergy, abnormal renal function, patient refusal or physician request. No oral contrast administered. All CT scans are performed using dose optimization technique as appropriate and may include automated exposure control or mA/KV adjustment according to patient size. FINDINGS: No suspicious findings in the lung bases. The liver, spleen and pancreas show no suspicious findings on non-contrast imaging. Gallbladder is contracted around multiple gallstones. No biliary tree dilatation. No hydronephrosis or suspicious renal mass. No significant adrenal finding. Isodense renal masses and pyelonephritis cannot be excluded in the absence of IV contrast. The urinary bladder is without significant finding. IUD appears to be well positioned within the fundal and midportion of the uterus. Uterine contour is deformed by multiple fibroids. Along the left inferior margin of the fundus there is an approximately 3 centimeter fibroid. Right lateral approximately 3 centimeter fibroid seen as well. No fallopian tube or ovarian abnormality. There is no abnormal air or fluid collection in the pelvis. No gastric dilatation or gastric wall thickening. Fluid is present filling but not dilating the stomach. No duodenum abnormality seen. Proximal jejunal loops are abnormal. There is wall thickening and edema. Stranding is present in the adjacent mesenteric fat. In the proximal jejunum just distal to the ligament of Treitz there is abnormal air collection along the wall of the the jejunum extending as punctate areas of extraluminal free air. The adjacent splenic flexure region of the colon does have diverticulosis. However, no wall thickening or wall edema seen. The air is believed to be from jejunum rather than an acute diverticulitis. More distally the loops of ileum show no suspicious finding. No direct or indirect appendicitis findings. Left-sided colonic diverticulosis present without acute diverticulitis findings. No acute colon finding seen. No other area of free air or acute finding. No abscess or drainable fluid collection. No hernia, mass or bulky lymphadenopathy. No suspicious bony findings. Findings telephoned to referring physician 8:52 a.m. IMPRESSION: Wall thickening and edema involve multiple loops of jejunum with minimal amount of extra luminal free air adjacent to the proximal jejunum. No associated mass or foreign body identified. No abscess or drainable fluid collection. No free air distant from the jejunum. IUD appears to be well positioned within the multi fibroid uterus. No SENIOR WINDOWS ENGINEER or pelvic acute finding identifiable. Diverticulosis without acute diverticulitis. Multi stone cholelithiasis without acute finding. 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 -No NSAIDs -Continue acute HD for HERMILA -Repeat HBV panel pending AG Acidosis in the setting of HERMILA -HD as ordered HTN with CKD -Continue Losartan -Continue Metoprolol 100mg BID in the setting of Paroxysmal Afib Severe malnutrition Hypoalbuminemia -Advance diet as tolerated -Protonix PO -Albumin IV prn Anemia in chronic illness -Retacrit TIW -PRBC as ordered CKD MBD HyperPO4 -Continue Vitamin D -Continue Renvela Jejunitis with performation may be due to Mycophenolate therapy Peritonitis Perforated colon sp Colectomy with colostomy -Continue IV Abx per ID -Dilaudid IV prn -Hold Mycophenolate -Protonix PO -Wean Prednisone 10mg daily Severe LE weakness -Aggressive PT as tolerated Case reviewed with Dr. Pollack Possible rehab placement on Wednesday
[2022-03-29] MEDS: LOSARTAN POTASSIUM 50 MG TABLET PO SCH (08:56)
[2022-03-29] MEDS: SEVELAMER CARBONATE 800 MG TABLET PO SCH ×3 (08:57→17:05)
[2022-03-29] MEDS: VITAMIN D 5,000 UNIT CAP PO SCH (08:57)
[2022-03-29] MEDS: ENSURE CLEAR 200 ML CAN PO SCH ×2 (08:57→21:00)
[2022-03-29] MEDS: predniSONE 10 MG TAB PO SCH (08:57)
[2022-03-29] MEDS: NEPRO SHAKE 237 ML CAN PO SCH ×3 (08:59→21:00)
[2022-03-29] MEDS ORDERED: POTASSIUM CL SA 10 MEQ TAB PO ONE (09:00)
--- NOTE | 2022-03-29 09:15 | P.PN ---
Date of Service: 03/28/22 Vital Signs Temp Pulse Resp BP Pulse Ox 97.7 F 86 18 122/77 96 03/29/22 04:00 03/29/22 06:26 03/29/22 04:00 03/29/22 06:26 03/29/22 04:00 Medications Acetaminophen (Acetaminophen 500 Mg Tab) 500 mg PO Q6H PRN PRN Reason: Pain scale 2-4 (Mild) Last Admin: 03/23/22 17:29 Dose: 500 mg Hydrocodone Bitart/Acetaminophen (Hydrocodone/Apap 7.5/325 Mg Tab) 1 tab PO Q4H PRN PRN Reason: Pain scale 8-10 (Severe) Last Admin: 03/28/22 09:02 Dose: 1 tab Alprazolam (Alprazolam 0.25 Mg Tablet) 0.25 mg PO BID PRN PRN Reason: ANXIETY Cholecalciferol (Vitamin D 5,000 Unit Cap) 5,000 unit PO DAILY [facility] Last Admin: 03/29/22 08:57 Dose: 5,000 unit Cyclobenzaprine HCl (Cyclobenzaprine 10 Mg Tab) 10 mg PO BIDP PRN PRN Reason: MUSCLE SPASMS Enteral Nutritional Formula (Ensure Clear 200 Ml Can) 237 ml PO BID [facility] Last Admin: 03/29/22 08:57 Dose: Not Given Enteral Nutritional Formula (Nepro Shake 237 Ml Can) 237 ml PO TID [facility] Last Admin: 03/29/22 08:59 Dose: 237 ml Epoetin Toni (Epoetin Toni 10,000 Unit/Ml Vial) 10,000 unit SQ M,W,F [facility] Last Admin: 03/27/22 17:12 Dose: 10,000 unit Heparin Sodium (Porcine) (Heparin 1,000 Unit/Ml Vial) 2,000 unit IV EVERY HD PRN PRN Reason: DIALYSIS Last Admin: 03/27/22 09:37 Dose: 1,000 unit Heparin Sodium (Porcine) (Heparin 1,000 Unit/Ml Vial) 4,000 unit IV EVERY HD PRN PRN Reason: DIALYSIS CATHETER CARE Last Admin: 03/27/22 16:42 Dose: 4,000 unit Hydralazine HCl (Hydralazine Hcl 20 Mg/Ml Vial) 10 mg IV Q6HP PRN PRN Reason: Titrate to SBP (MUST DEFINE) Last Admin: 03/27/22 20:51 Dose: 10 mg Hydromorphone HCl (Hydromorphone Hcl 0.5 Mg/0.5 Ml Inj) 0.5 mg IV Q4H PRN PRN Reason: Pain scale 5-7 (Moderate) Last Admin: 03/29/22 03:29 Dose: 0.5 mg Meropenem 500 mg/ Sodium (Chloride) 100 mls @ 200 mls/hr IV Q24H [facility] Last Admin: 03/28/22 17:16 Dose: 100 mls Fluconazole (Diflucan 400 Mg/200 Ml Iv (Premix)) 400 mg in 200 mls @ 100 mls/hr IV AFTER EACH DIALYSIS [facility] Sodium Chloride (Sodium Chloride) 250 mls @ 0 mls/hr IV .Q0M [facility] Losartan Potassium (Losartan Potassium 50 Mg Tablet) 25 mg PO DAILY [facility] Last Admin: 03/29/22 08:56 Dose: 25 mg Metoprolol Tartrate (Metoprolol Tar 50 Mg Tab) 100 mg PO BID 6AM 6PM [facility] Last Admin: 03/29/22 06:26 Dose: 100 mg Pantoprazole Sodium (Pantoprazole 40mg Tablet) 40 mg PO DAILYAC [facility]; Protocol Last Admin: 03/29/22 06:26 Dose: 40 mg Phenol (Phenol 1.4% Oral [place] 180ml) 2 appl MM Q4H PRN PRN Reason: SORE THROAT Last Admin: 03/15/22 11:02 Dose: 2 appl Prednisone (Prednisone 10 Mg Tab) 10 mg PO DAILY WITH BREAKFAST [facility] Last Admin: 03/29/22 08:57 Dose: 10 mg Sevelamer Carbonate (Sevelamer Carbonate 800 Mg Tablet) 800 mg PO TIDWM [facility] Last Admin: 03/29/22 08:57 Dose: 800 mg Sodium Chloride (Flush Normal Saline 10 Ml) 10 ml IV BID [facility] Last Admin: 03/29/22 08:59 Dose: 10 ml Sodium Chloride (Sodium Chloride 0.9% 10ml Inj) 10 ml IV UD PRN PRN Reason: Diluant Microbiology Results 03/09/22 06:47 Clean Catch Urine [place] Count - Final No growth. 03/09/22 06:47 Clean Catch Urine - Final No growth. Assessment/ Plan: Nephrology No chest pain No dyspnea Persistent LE weakness Worsening appetite today with abd pain and distention No acute events overnight Vitals, medications, blood work and imaging reviewed in the chart. General: Oriented x3, Cooperative, NAD HEENT: Atraumatic Neck: Supple Respiratory: Normal respiratory effort Cardiovascular: Regular rate/rhythm, Edema Gastrointestinal: Tenderness Musculoskeletal: No clubbing, No contractures Integumentary: No rashes, No cyanosis Neurological: Normal speech Laboratory Data (last 24 hrs) 03/09/22 06:19: Sodium 138, Potassium 4.5, BUN 79 H, Creatinine 6.88 H*, Glucose 121 H, Total Bilirubin 0.1 L, AST 6 L, ALT 21, Alkaline Phosphatase 57, Lipase 129 03/09/22 06:19: WBC 4.7, Hgb 6.4 L*, Hct 20.5 L*, Plt Count 242 Imagings Data: EXAM DESCRIPTION: CT - Abdomen Pelvis Wo Contrast - 03/09/2022 8:37 am CLINICAL HISTORY: Abdominal pain, acute, nonlocalized COMPARISON: CT ABD PELVIS W CONTRAST dated 01/23/2013; Transvaginal Study Probe dated 02/05/2022 TECHNIQUE: Axial [address] imaging of the abdomen and pelvis was performed without IV contrast. No IV contrast was given because of allergy, abnormal renal function, patient refusal or physician request. No oral contrast administered. All CT scans are performed using dose optimization technique as appropriate and may include automated exposure control or mA/KV adjustment according to patient size. FINDINGS: No suspicious findings in the lung bases. The liver, spleen and pancreas show no suspicious findings on non-contrast imaging. Gallbladder is contracted around multiple gallstones. No biliary tree dilatation. No hydronephrosis or suspicious renal mass. No significant adrenal finding. Isodense renal masses and pyelonephritis cannot be excluded in the absence of IV contrast. The urinary bladder is without significant finding. IUD appears to be well positioned within the fundal and midportion of the uterus. Uterine contour is deformed by multiple fibroids. Along the left inferior margin of the fundus there is an approximately 3 centimeter fibroid. Right lateral approximately 3 centimeter fibroid seen as well. No fallopian tube or ovarian abnormality. There is no abnormal air or fluid collection in the pelvis. No gastric dilatation or gastric wall thickening. Fluid is present filling but not dilating the stomach. No duodenum abnormality seen. Proximal jejunal loops are abnormal. There is wall thickening and edema. Stranding is present in the adjacent mesenteric fat. In the proximal jejunum just distal to the ligament of Treitz there is abnormal air collection along the wall of the the jejunum extending as punctate areas of extraluminal free air. The adjacent splenic flexure region of the colon does have diverticulosis. However, no wall thickening or wall edema seen. The air is believed to be from jejunum rather than an acute diverticulitis. More distally the loops of ileum show no suspicious finding. No direct or indirect appendicitis findings. Left-sided colonic diverticulosis present without acute diverticulitis findings. No acute colon finding seen. No other area of free air or acute finding. No abscess or drainable fluid collection. No hernia, mass or bulky lymphadenopathy. No suspicious bony findings. Findings telephoned to referring physician 8:52 a.m. IMPRESSION: Wall thickening and edema involve multiple loops of jejunum with minimal amount of extra luminal free air adjacent to the proximal jejunum. No associated mass or foreign body identified. No abscess or drainable fluid collection. No free air distant from the jejunum. IUD appears to be well positioned within the multi fibroid uterus. No LICENSED ELECTRICIAN or pelvic acute finding identifiable. Diverticulosis without acute diverticulitis. Multi stone cholelithiasis without acute finding. 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 -No NSAIDs -Continue acute HD for HERMILA -Repeat HBV panel pending AG Acidosis in the setting of HERMILA -HD as ordered HTN with CKD -Continue Losartan -Continue Metoprolol 100mg BID in the setting of Paroxysmal Afib Severe malnutrition Hypoalbuminemia -Advance diet as tolerated -Protonix PO -Albumin IV prn Anemia in chronic illness -Retacrit TIW -PRBC as ordered CKD MBD HyperPO4 -Continue Vitamin D -Continue Renvela Jejunitis with performation may be due to Mycophenolate therapy Peritonitis Perforated colon sp Colectomy with colostomy -Continue IV Abx per ID -Dilaudid IV prn -Hold Mycophenolate -Protonix PO -Prednisone 10mg daily; wean as tolerated -Stat abd xray ordered for abd pain and reviewed. Agree with a repeat CT Abd/ Pelvis. -Reglan IV 10mg X1 Severe LE weakness -Aggressive PT as tolerated Case reviewed with Dr. Pollack Possible rehab placement on Wednesday
[2022-03-29] MEDS: HYDROCODONE/APAP 7.5/325 MG TAB PO PRN (14:06)
[2022-03-29] MEDS: Meropenem 500 MG in NA CHLORIDE 0.9% 100 ML IV SCH (17:06)
--- NOTE | 2022-03-29 20:04 | P.PN ---
Date of Service: 03/29/22 Vital Signs Temp Pulse Resp BP Pulse Ox 98.0 F 106 H 14 122/82 99 03/29/22 16:00 03/29/22 17:05 03/29/22 16:17 03/29/22 17:05 03/29/22 16:17 Medications Acetaminophen (Acetaminophen 500 Mg Tab) 500 mg PO Q6H PRN PRN Reason: Pain scale 2-4 (Mild) Last Admin: 03/23/22 17:29 Dose: 500 mg Hydrocodone Bitart/Acetaminophen (Hydrocodone/Apap 7.5/325 Mg Tab) 1 tab PO Q4H PRN PRN Reason: Pain scale 8-10 (Severe) Last Admin: 03/29/22 14:06 Dose: 1 tab Alprazolam (Alprazolam 0.25 Mg Tablet) 0.25 mg PO BID PRN PRN Reason: ANXIETY Cholecalciferol (Vitamin D 5,000 Unit Cap) 5,000 unit PO DAILY [facility] Last Admin: 03/29/22 08:57 Dose: 5,000 unit Cyclobenzaprine HCl (Cyclobenzaprine 10 Mg Tab) 10 mg PO BIDP PRN PRN Reason: MUSCLE SPASMS Last Admin: 03/29/22 11:24 Dose: 10 mg Enteral Nutritional Formula (Ensure Clear 200 Ml Can) 237 ml PO BID [facility] Last Admin: 03/29/22 08:57 Dose: Not Given Enteral Nutritional Formula (Nepro Shake 237 Ml Can) 237 ml PO TID [facility] Last Admin: 03/29/22 14:07 Dose: 237 ml Epoetin Toni (Epoetin Toni 10,000 Unit/Ml Vial) 10,000 unit SQ M,W,F [facility] Last Admin: 03/27/22 17:12 Dose: 10,000 unit Heparin Sodium (Porcine) (Heparin 1,000 Unit/Ml Vial) 2,000 unit IV EVERY HD PRN PRN Reason: DIALYSIS Last Admin: 03/27/22 09:37 Dose: 1,000 unit Heparin Sodium (Porcine) (Heparin 1,000 Unit/Ml Vial) 4,000 unit IV EVERY HD PRN PRN Reason: DIALYSIS CATHETER CARE Last Admin: 03/27/22 16:42 Dose: 4,000 unit Hydralazine HCl (Hydralazine Hcl 20 Mg/Ml Vial) 10 mg IV Q6HP PRN PRN Reason: Titrate to SBP (MUST DEFINE) Last Admin: 03/27/22 20:51 Dose: 10 mg Hydromorphone HCl (Hydromorphone Hcl 0.5 Mg/0.5 Ml Inj) 0.5 mg IV Q4H PRN PRN Reason: Pain scale 5-7 (Moderate) Last Admin: 03/29/22 15:47 Dose: 0.5 mg Meropenem 500 mg/ Sodium (Chloride) 100 mls @ 200 mls/hr IV Q24H [facility] Last Admin: 03/29/22 17:06 Dose: 100 mls Fluconazole (Diflucan 400 Mg/200 Ml Iv (Premix)) 400 mg in 200 mls @ 100 mls/hr IV AFTER EACH DIALYSIS [facility] Sodium Chloride (Sodium Chloride) 250 mls @ 0 mls/hr IV .Q0M [facility] Losartan Potassium (Losartan Potassium 50 Mg Tablet) 25 mg PO DAILY [facility] Last Admin: 03/29/22 08:56 Dose: 25 mg Metoprolol Tartrate (Metoprolol Tar 50 Mg Tab) 100 mg PO BID 6AM 6PM [facility] Last Admin: 03/29/22 17:05 Dose: 100 mg Pantoprazole Sodium (Pantoprazole 40mg Tablet) 40 mg PO DAILYAC [facility]; Protocol Last Admin: 03/29/22 06:26 Dose: 40 mg Phenol (Phenol 1.4% Oral [place] 180ml) 2 appl MM Q4H PRN PRN Reason: SORE THROAT Last Admin: 03/15/22 11:02 Dose: 2 appl Prednisone (Prednisone 10 Mg Tab) 10 mg PO DAILY WITH BREAKFAST [facility] Last Admin: 03/29/22 08:57 Dose: 10 mg Sevelamer Carbonate (Sevelamer Carbonate 800 Mg Tablet) 800 mg PO TIDWM [facility] Last Admin: 03/29/22 17:05 Dose: 800 mg Sodium Chloride (Flush Normal Saline 10 Ml) 10 ml IV BID [facility] Last Admin: 03/29/22 08:59 Dose: 10 ml Sodium Chloride (Sodium Chloride 0.9% 10ml Inj) 10 ml IV UD PRN PRN Reason: Diluant Microbiology Results 03/09/22 06:47 Clean Catch Urine [place] Count - Final No growth. 03/09/22 06:47 Clean Catch Urine - Final No growth. Assessment/ Plan: Nephrology No chest pain No dyspnea Persistent LE weakness Feeling better today No acute events overnight Vitals, medications, blood work and imaging reviewed in the chart. General: Oriented x3, Cooperative, NAD HEENT: Atraumatic Neck: Supple Respiratory: Normal respiratory effort Cardiovascular: Regular rate/rhythm, Edema Gastrointestinal: Tenderness Musculoskeletal: No clubbing, No contractures Integumentary: No rashes, No cyanosis Neurological: Normal speech Laboratory Data (last 24 hrs) 03/09/22 06:19: Sodium 138, Potassium 4.5, BUN 79 H, Creatinine 6.88 H*, Glucose 121 H, Total Bilirubin 0.1 L, AST 6 L, ALT 21, Alkaline Phosphatase 57, Lipase 129 03/09/22 06:19: WBC 4.7, Hgb 6.4 L*, Hct 20.5 L*, Plt Count 242 Imagings Data: EXAM DESCRIPTION: CT - Abdomen Pelvis Wo Contrast - 03/09/2022 8:37 am CLINICAL HISTORY: Abdominal pain, acute, nonlocalized COMPARISON: CT ABD PELVIS W CONTRAST dated 01/23/2013; Transvaginal Study Probe dated 02/05/2022 TECHNIQUE: Axial [address] imaging of the abdomen and pelvis was performed without IV contrast. No IV contrast was given because of allergy, abnormal renal function, patient refusal or physician request. No oral contrast administered. All CT scans are performed using dose optimization technique as appropriate and may include automated exposure control or mA/KV adjustment according to patient size. FINDINGS: No suspicious findings in the lung bases. The liver, spleen and pancreas show no suspicious findings on non-contrast imaging. Gallbladder is contracted around multiple gallstones. No biliary tree dilatation. No hydronephrosis or suspicious renal mass. No significant adrenal finding. Isodense renal masses and pyelonephritis cannot be excluded in the absence of IV contrast. The urinary bladder is without significant finding. IUD appears to be well positioned within the fundal and midportion of the uterus. Uterine contour is deformed by multiple fibroids. Along the left inferior margin of the fundus there is an approximately 3 centimeter fibroid. Right lateral approximately 3 centimeter fibroid seen as well. No fallopian tube or ovarian abnormality. There is no abnormal air or fluid collection in the pelvis. No gastric dilatation or gastric wall thickening. Fluid is present filling but not dilating the stomach. No duodenum abnormality seen. Proximal jejunal loops are abnormal. There is wall thickening and edema. Stranding is present in the adjacent mesenteric fat. In the proximal jejunum just distal to the ligament of Treitz there is abnormal air collection along the wall of the the jejunum extending as punctate areas of extraluminal free air. The adjacent splenic flexure region of the colon does have diverticulosis. However, no wall thickening or wall edema seen. The air is believed to be from jejunum rather than an acute diverticulitis. More distally the loops of ileum show no suspicious finding. No direct or indirect appendicitis findings. Left-sided colonic diverticulosis present without acute diverticulitis findings. No acute colon finding seen. No other area of free air or acute finding. No abscess or drainable fluid collection. No hernia, mass or bulky lymphadenopathy. No suspicious bony findings. Findings telephoned to referring physician 8:52 a.m. IMPRESSION: Wall thickening and edema involve multiple loops of jejunum with minimal amount of extra luminal free air adjacent to the proximal jejunum. No associated mass or foreign body identified. No abscess or drainable fluid collection. No free air distant from the jejunum. IUD appears to be well positioned within the multi fibroid uterus. No BRANCH EMPLOYMENT COORDINATOR or pelvic acute finding identifiable. Diverticulosis without acute diverticulitis. Multi stone cholelithiasis without acute finding. 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 -No NSAIDs -Continue acute HD for HERMILA -Repeat HBV panel pending AG Acidosis in the setting of HERMILA -HD as ordered HTN with CKD -Continue Losartan -Continue Metoprolol 100mg BID in the setting of Paroxysmal Afib Severe malnutrition Hypoalbuminemia -Advance diet as tolerated -Protonix PO -Albumin IV prn Anemia in chronic illness -Retacrit TIW -PRBC as ordered CKD MBD HyperPO4 -Continue Vitamin D -Continue Renvela Jejunitis with performation may be due to Mycophenolate therapy Peritonitis Perforated colon sp Colectomy with colostomy -Continue IV Abx per ID -Dilaudid IV prn -Hold Mycophenolate -Protonix PO -Prednisone 10mg daily; wean as tolerated Severe LE weakness -Aggressive PT as tolerated Case reviewed with Dr. Pollack Possible rehab placement on Wednesday
--- NOTE | 2022-03-29 20:32 | P.PN ---
Date of Service: 03/29/22 S: Patient is actually in fairly good spirits today. Yesterday was having some abdominal pain but that seems to be resolved. She is laughing joking and speaking quite openly today. O: Patient looks well, wound is clean. I did takedown her colostomy bag. For some reason the colostomy bag wafer has not been cut right over the last few days. There is an area of erosion on the superior portion of my colostomy. The colostomy itself is viable, but there is a filling defect around that superior border. We had seen some slight separation last week when she was in the operating room for evacuation of that hematoma and the area was sutured to repair this. However it seems that the flange has been chronically leaking, and has eroded away some of the skin the ostomy from the skin attachment that had formed prior. A: Clinically the patient is doing well. Seems to be in a better mood today. The ostomy will need work. A consult has been placed with the water resource specialist and ostomy nurse specialist and I will discuss it with her tomorrow. P: Continue to advance diet, encourage ambulation, she is stable to be transferred to a rehab floor when a bed is available.
[2022-03-30 04:03] LABS: Absolute Lymphocytes (CBC) 0.6 K/uL (0.7-4.9); Hematocrit 27.3 % (36.0-45.0); Lymphocytes % 2.8 % (15.3-44.8); MCV 83.1 fL (80-100); RBC Red Blood Cell Count 3.29 M/uL (3.86-4.86)
[2022-03-30 04:18] LABS: Albumin 1.8 g/dL (3.4-5.0); Bilirubin Total 0.3 mg/dL (0.2-1.0); Magnesium 1.9 mg/dL (1.8-2.4); Potassium 3.9 mmol/L (3.5-5.1); Protein, Total 4.6 g/dL (6.4-8.2)
[2022-03-30] MEDS: METOPROLOL TAR 50 MG TAB PO SCH ×2 (06:41→18:42)
[2022-03-30] MEDS: PANTOPRAZOLE 40MG TABLET PO SCH (06:42)
[2022-03-30] MEDS: HYDROMORPHONE HCL 0.5 MG/0.5 ML INJ IV PRN ×2 (07:37→12:58)
[2022-03-30] MEDS: SEVELAMER CARBONATE 800 MG TABLET PO SCH ×3 (08:57→18:42)
[2022-03-30] MEDS: VITAMIN D 5,000 UNIT CAP PO SCH (08:57)
[2022-03-30] MEDS: LOSARTAN POTASSIUM 50 MG TABLET PO SCH (08:57)
[2022-03-30] MEDS: NEPRO SHAKE 237 ML CAN PO SCH ×3 (08:57→21:00)
[2022-03-30] MEDS: predniSONE 10 MG TAB PO SCH (08:57)
[2022-03-30] MEDS: ENSURE CLEAR 200 ML CAN PO SCH ×2 (08:57→21:00)
--- NOTE | 2022-03-30 11:37 | P.PN ---
Date of Service: 03/30/22 Vital Signs Temp Pulse Resp BP Pulse Ox 98.1 F 91 H 18 147/91 H 97 03/30/22 08:00 03/30/22 08:00 03/30/22 08:07 03/30/22 08:00 03/30/22 08:07 Medications Acetaminophen (Acetaminophen 500 Mg Tab) 500 mg PO Q6H PRN PRN Reason: Pain scale 2-4 (Mild) Last Admin: 03/23/22 17:29 Dose: 500 mg Hydrocodone Bitart/Acetaminophen (Hydrocodone/Apap 7.5/325 Mg Tab) 1 tab PO Q4H PRN PRN Reason: Pain scale 8-10 (Severe) Last Admin: 03/29/22 14:06 Dose: 1 tab Alprazolam (Alprazolam 0.25 Mg Tablet) 0.25 mg PO BID PRN PRN Reason: ANXIETY Cholecalciferol (Vitamin D 5,000 Unit Cap) 5,000 unit PO DAILY [facility] Last Admin: 03/30/22 08:57 Dose: 5,000 unit Cyclobenzaprine HCl (Cyclobenzaprine 10 Mg Tab) 10 mg PO BIDP PRN PRN Reason: MUSCLE SPASMS Last Admin: 03/29/22 11:24 Dose: 10 mg Enteral Nutritional Formula (Ensure Clear 200 Ml Can) 237 ml PO BID [facility] Last Admin: 03/30/22 08:57 Dose: 237 ml Enteral Nutritional Formula (Nepro Shake 237 Ml Can) 237 ml PO TID [facility] Last Admin: 03/30/22 08:57 Dose: 237 ml Epoetin Toni (Epoetin Toni 10,000 Unit/Ml Vial) 10,000 unit SQ M,W,F [facility] Last Admin: 03/27/22 17:12 Dose: 10,000 unit Heparin Sodium (Porcine) (Heparin 1,000 Unit/Ml Vial) 2,000 unit IV EVERY HD PRN PRN Reason: DIALYSIS Last Admin: 03/27/22 09:37 Dose: 1,000 unit Heparin Sodium (Porcine) (Heparin 1,000 Unit/Ml Vial) 4,000 unit IV EVERY HD PRN PRN Reason: DIALYSIS CATHETER CARE Last Admin: 03/27/22 16:42 Dose: 4,000 unit Hydralazine HCl (Hydralazine Hcl 20 Mg/Ml Vial) 10 mg IV Q6HP PRN PRN Reason: Titrate to SBP (MUST DEFINE) Last Admin: 03/27/22 20:51 Dose: 10 mg Hydromorphone HCl (Hydromorphone Hcl 0.5 Mg/0.5 Ml Inj) 0.5 mg IV Q4H PRN PRN Reason: Pain scale 5-7 (Moderate) Last Admin: 03/30/22 07:37 Dose: 0.5 mg Meropenem 500 mg/ Sodium (Chloride) 100 mls @ 200 mls/hr IV Q24H [facility] Last Admin: 03/29/22 17:06 Dose: 100 mls Fluconazole (Diflucan 400 Mg/200 Ml Iv (Premix)) 400 mg in 200 mls @ 100 mls/hr IV AFTER EACH DIALYSIS [facility] Sodium Chloride (Sodium Chloride) 250 mls @ 0 mls/hr IV .Q0M [facility] Losartan Potassium (Losartan Potassium 50 Mg Tablet) 25 mg PO DAILY [facility] Last Admin: 03/30/22 08:57 Dose: 25 mg Metoprolol Tartrate (Metoprolol Tar 50 Mg Tab) 100 mg PO BID 6AM 6PM [facility] Last Admin: 03/30/22 06:41 Dose: 100 mg Pantoprazole Sodium (Pantoprazole 40mg Tablet) 40 mg PO DAILYAC [facility]; Protocol Last Admin: 03/30/22 06:42 Dose: 40 mg Phenol (Phenol 1.4% Oral [place] 180ml) 2 appl MM Q4H PRN PRN Reason: SORE THROAT Last Admin: 03/15/22 11:02 Dose: 2 appl Prednisone (Prednisone 10 Mg Tab) 10 mg PO DAILY WITH BREAKFAST [facility] Last Admin: 03/30/22 08:57 Dose: 10 mg Sevelamer Carbonate (Sevelamer Carbonate 800 Mg Tablet) 800 mg PO TIDWM [facility] Last Admin: 03/30/22 08:57 Dose: 800 mg Sodium Chloride (Flush Normal Saline 10 Ml) 10 ml IV BID [facility] Last Admin: 03/30/22 08:57 Dose: 10 ml Sodium Chloride (Sodium Chloride 0.9% 10ml Inj) 10 ml IV UD PRN PRN Reason: Diluant Microbiology Results 03/09/22 06:47 Clean Catch Urine [place] Count - Final No growth. 03/09/22 06:47 Clean Catch Urine - Final No growth. Assessment/ Plan: Nephrology No chest pain No dyspnea Persistent LE weakness Feeling better today No acute events overnight Vitals, medications, blood work and imaging reviewed in the chart. General: Oriented x3, Cooperative, NAD HEENT: Atraumatic Neck: Supple Respiratory: Normal respiratory effort Cardiovascular: Regular rate/rhythm, Edema Gastrointestinal: Tenderness Musculoskeletal: No clubbing, No contractures Integumentary: No rashes, No cyanosis Neurological: Normal speech Laboratory Data (last 24 hrs) 03/09/22 06:19: Sodium 138, Potassium 4.5, BUN 79 H, Creatinine 6.88 H*, Glucose 121 H, Total Bilirubin 0.1 L, AST 6 L, ALT 21, Alkaline Phosphatase 57, Lipase 129 03/09/22 06:19: WBC 4.7, Hgb 6.4 L*, Hct 20.5 L*, Plt Count 242 Imagings Data: EXAM DESCRIPTION: CT - Abdomen Pelvis Wo Contrast - 03/09/2022 8:37 am CLINICAL HISTORY: Abdominal pain, acute, nonlocalized COMPARISON: CT ABD PELVIS W CONTRAST dated 01/23/2013; Transvaginal Study Probe dated 02/05/2022 TECHNIQUE: Axial [address] imaging of the abdomen and pelvis was performed without IV contrast. No IV contrast was given because of allergy, abnormal renal function, patient refusal or physician request. No oral contrast administered. All CT scans are performed using dose optimization technique as appropriate and may include automated exposure control or mA/KV adjustment according to patient size. FINDINGS: No suspicious findings in the lung bases. The liver, spleen and pancreas show no suspicious findings on non-contrast imaging. Gallbladder is contracted around multiple gallstones. No biliary tree dilatation. No hydronephrosis or suspicious renal mass. No significant adrenal finding. Isodense renal masses and pyelonephritis cannot be excluded in the absence of IV contrast. The urinary bladder is without significant finding. IUD appears to be well positioned within the fundal and midportion of the uterus. Uterine contour is deformed by multiple fibroids. Along the left inferior margin of the fundus there is an approximately 3 centimeter fibroid. Right lateral approximately 3 centimeter fibroid seen as well. No fallopian tube or ovarian abnormality. There is no abnormal air or fluid collection in the pelvis. No gastric dilatation or gastric wall thickening. Fluid is present filling but not dilating the stomach. No duodenum abnormality seen. Proximal jejunal loops are abnormal. There is wall thickening and edema. Stranding is present in the adjacent mesenteric fat. In the proximal jejunum just distal to the ligament of Treitz there is abnormal air collection along the wall of the the jejunum extending as punctate areas of extraluminal free air. The adjacent splenic flexure region of the colon does have diverticulosis. However, no wall thickening or wall edema seen. The air is believed to be from jejunum rather than an acute diverticulitis. More distally the loops of ileum show no suspicious finding. No direct or indirect appendicitis findings. Left-sided colonic diverticulosis present without acute diverticulitis findings. No acute colon finding seen. No other area of free air or acute finding. No abscess or drainable fluid collection. No hernia, mass or bulky lymphadenopathy. No suspicious bony findings. Findings telephoned to referring physician 8:52 a.m. IMPRESSION: Wall thickening and edema involve multiple loops of jejunum with minimal amount of extra luminal free air adjacent to the proximal jejunum. No associated mass or foreign body identified. No abscess or drainable fluid collection. No free air distant from the jejunum. IUD appears to be well positioned within the multi fibroid uterus. No BACK PAD INSPECTOR or pelvic acute finding identifiable. Diverticulosis without acute diverticulitis. Multi stone cholelithiasis without acute finding. 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 -No NSAIDs -Continue acute HD for HERMILA -Repeat HBV panel pending AG Acidosis in the setting of HERMILA -HD as ordered HTN with CKD -Continue Losartan -Continue Metoprolol 100mg BID in the setting of Paroxysmal Afib Severe malnutrition in the setting of poor oral intake Hypoalbuminemia -Advance diet as tolerated -Continue Nepro -Albumin IV prn Anemia in chronic illness -Retacrit TIW -PRBC as ordered CKD MBD HyperPO4 -Continue Vitamin D -Continue Renvela Jejunitis with performation may be due to Mycophenolate therapy Peritonitis Perforated colon sp Colectomy with colostomy -Continue IV Abx per ID -Dilaudid IV prn -Hold Mycophenolate -Change Protonix to Pepcid -Prednisone 10mg daily; wean as tolerated Severe LE weakness -Aggressive PT as tolerated Possible rehab placement soon
--- NOTE | 2022-03-30 17:39 | PN ---
Subjective: The patient lying in bed, getting dialyzed. No new acute event. Chart reviewed. Denie s any headache, nausea, vomiting, chest pain, abdominal pain, constipation, or diarrhea. Objective: Vital Signs: Stable. Lungs: Basal crackles. Heart: S1, S2. Regular. Abdomen: Soft, nontender. Bowel sounds present. Stoma noted. Laboratory Data: Shows WBC 20,000, hemoglobin 9.3, platelets 73. Chemistry shows sodium 139, potass ium 3.9, chloride 105, bicarb 28, BUN 50, creatinine 3.6, glucose is 248. Micro data, blood cultures no growth on March 23. Assessment And Plan: Status post diverticulum perforation, status post colectomy and ostomy and julieta lauro evacuation. The patient's white count worsening to 20,000 possibly secondary to inflammatory an d reactive phase. Continue antibiotic and supportive care. Renal failure, on dialysis, thrombocytop enia, leukocytosis, anemia. Continue current treatment. Prognosis guarded. We will follow the ramona ent as needed. NF/MODL Voice ID: [id number] Report ID: [id number]
--- NOTE | 2022-03-30 17:41 | P.PN ---
Date of Service: 03/30/22 S: Patient is upset today, concerned about her ostomy. I tried to reassure her that what is happened is that the wound has . It will require some wound care in addition to colostomy changes O: The ostomy has from the wound edges. There appears to be good granulation tissue, however there is some undermining. A: Colostomy is still viable. Will require some extra wound care around that area. P: Our ostomy nurse is going to assess the patient later this afternoon. Her mom has asked to be there. We will have the nurses call when she arrives.
[2022-03-30] MEDS: Meropenem 500 MG in NA CHLORIDE 0.9% 100 ML IV SCH (18:42)
[2022-03-30] MEDS: EPOETIN ALFA 10,000 UNIT/ML VIAL SQ SCH (18:42)
[2022-03-30] MEDS: FAMOTIDINE 20 MG TAB PO SCH (21:39)
--- NOTE | 2022-03-30 23:07 | P.PN ---
Date of Service: 03/30/22 Subjective: feels better than yesterday, abd pain is less in slightly better spirits working with PT frustrated ROS: 10 point ROS as noted above, otherwise negative Physical exam GEN: AOx3, NAD HEENT: normal conjunctiva, sclera anicteric CV: sinus tachycardia, trace b/l pedal edema Pulm: non-labored respirations, clear bilaterally ABD: soft, mild tenderness in lower abdomen, ostomy with stool/air, no rebound tenderness Neuro: AOx3, moves all extremities Problem List perforated diverticula, s/p colectomy and ostomy acute worsening of CKD 4, now on dialysis Metabolic acidosis secondary to HERMILA anemia in chronic kidney disease h/o lupus nephritis SLE hyperphosphatemia Protein calorie malnutrition, severe Patient worsened on 03/14 and required ex-lap, colectomy, ostomy 03/15 - continued postoperatively with low BP, required levophed and was weaned after just several hours. given gentle IVF with improvement patient developed hematoma at surgical incision - s/p I&D (03/19), ANDREW drain placement (removed 03/28) increased abdominal pain this past wednesday, CT abd/pelvis with swelling/edema of small intestine ostomy noted to have some separation, possible undermining, general surgery to further evaluate family and patient expressed frustration, request second opinion - Dr. Caputo to evaluate tomorrow s/p 8uPRBC in total during hospitalization. goal Hgb >7.0 last transfused 2u PRBC 03/26 Hemoglobin stable Nephrology initiated IV steroids solumed 40q8h on 03/09; titrated to BID last week; and down to prednisone 20mg daily on 03/23 and has further been weaned leukocytosis was resolving in relation to weaning steroids WBCs increased 03/29, afebrile, clinically appears much improved, more comfortable, minimal abdominal pain worsening abdominal pain evening of 03/29, improved today; ostomy as noted above renal function worsened early in hospitalization, patient started dialysis 03/11, tolerating well continue HD per nephrology kincaid initially placed for urinary retention s/p tunneled cath by Dr. Caputo Blood cx: pansensitive e.coli, urine cx: negative ; abd cultures: pseudomonas ID consulted vanc & merrem since 03/19 and 03/11, respectively - initially received zosyn diflucan added 03/23 Blood (03/09): e. coli Blood (03/13): negative Wound (03/14): pseudomonas, e.coli Blood (03/18): negative Blood (03/23): negative given continued increased of WBC, ID recommended repeat CT (03/24) negative for acute process, no obvious source of infection Repeat CT (03/28): Mild thickening of small bowel loops in the left abdomen, could represent mild inflammation/enteritis. No bowel obstruction is present. paroxysmal afib earlier this hospitalization - post-operatively; briefly was on a amiodarone drip, continued on metoprolol continue PT, recommended inpatient rehab SW/CM consulted Code: full Dispo: inpatient rehab, ~1-2 days Pending further improvement, monitor ostomy Time Spent Managing Pts Care (In Minutes): 35
[2022-03-31] MEDS: HYDROMORPHONE HCL 0.5 MG/0.5 ML INJ IV PRN ×3 (04:34→22:27)
[2022-03-31 05:02] LABS: Absolute Lymphocytes (CBC) 0.7 K/uL (0.7-4.9); Hematocrit 34.9 % (36.0-45.0); Lymphocytes % 6.9 % (15.3-44.8); MCV 85.1 fL (80-100); MPV 8.9 fL (7.6-11.3)
[2022-03-31 05:23] LABS: AST/SGOT 12 U/L (15-37); Albumin 1.9 g/dL (3.4-5.0); Alkaline Phosphatase 98 U/L (45-117); BUN Blood Urea Nitrogen 31 mg/dL (7-18); Bicarbonate 29 mmol/L (21-32); Bilirubin Total 0.4 mg/dL (0.2-1.0); Glomerular Filtration Rate 25 ml/min (=/>90); Glucose Level 150 mg/dL (74-106); Magnesium 1.9 mg/dL (1.8-2.4); Potassium 3.3 mmol/L (3.5-5.1); Protein, Total 4.7 g/dL (6.4-8.2); Sodium Level 140 mmol/L (136-145)
[2022-03-31 05:27] LABS: ALT/SGPT < 10 U/L (12-78)
[2022-03-31] MEDS: METOPROLOL TAR 50 MG TAB PO SCH ×2 (05:46→17:50)
[2022-03-31] MEDS: SEVELAMER CARBONATE 800 MG TABLET PO SCH ×3 (08:00→17:50)
[2022-03-31] MEDS: LOSARTAN POTASSIUM 50 MG TABLET PO SCH (08:38)
[2022-03-31] MEDS: NEPRO SHAKE 237 ML CAN PO SCH ×3 (08:38→21:00)
[2022-03-31] MEDS: VITAMIN D 5,000 UNIT CAP PO SCH (08:38)
[2022-03-31] MEDS: predniSONE 10 MG TAB PO SCH (08:38)
[2022-03-31] MEDS: ENSURE CLEAR 200 ML CAN PO SCH ×2 (08:39→21:00)
--- NOTE | 2022-03-31 12:22 | P.PN ---
Subjective Date of Service: 03/31/22 Chief Complaint: Abdominal pain Patient seen sitting at the edge of the bed. She requested to go out for some fresh air in a wheelchair. No fever. Leukocytosis resolved. Physical Examination - Vital Signs Temperature: 96.6 F Blood Pressure: 123/81 Pulse: 93 Respirations: 20 Pulse Ox (%): 93 Assessment And Plan - Current Problems (Diagnosis) (1) Acute worsening of stage 4 chronic kidney disease Current Visit: Yes Status: Acute (2) Metabolic acidosis Current Visit: Yes Status: Acute (3) Jejunitis Current Visit: Yes Status: Acute (4) Bowel perforation Current Visit: Yes Status: Acute (5) Anemia in chronic kidney disease Current Visit: Yes Status: Acute (6) Lupus nephritis Current Visit: No Status: Acute (7) SLE (systemic lupus erythematosus related syndrome) Current Visit: No Status: Acute - Plan Physical exam GEN: AOx3, NAD HEENT: normal conjunctiva, sclera anicteric CV: sinus tachycardia, trace b/l pedal edema Pulm: clear to auscultation bilaterally ABD: soft, mild tenderness in lower abdomen, it appears her colostomy has retracted. Neuro: AOx3, moves all extremities Problem List perforated diverticula, s/p colectomy and ostomy acute worsening of CKD 4, now on dialysis Metabolic acidosis secondary to HERMILA anemia in chronic kidney disease h/o lupus nephritis SLE hyperphosphatemia Protein calorie malnutrition, severe Patient worsened on 03/14 and required ex-lap, colectomy, ostomy 03/15 - continued postoperatively with low BP, required levophed and was weaned after just several hours. given gentle IVF with improvement patient developed hematoma at surgical incision - s/p I&D (03/19), hematoma evacuation done. ANDREW drain removed 03/[address] abd/pelvis with swelling/edema of small intestine ostomy noted to retracted. Dr. Caceres recommend transfer to [facility] to be evaluated by the colorectal surgeon. Transfer initiated. s/p 8uPRBC in total during hospitalization. goal Hgb >7.0 last transfused 2u PRBC 03/26 Hemoglobin stable Nephrology initiated IV steroids solumed 40q8h on 03/09; titrated to BID last week; and down to prednisone 20mg daily on 03/23 and has further been weaned leukocytosis was resolving in relation to weaning steroids WBCs increased 03/29, afebrile, clinically appears much improved, more comfortable, minimal abdominal pain Leukocytosis resolved today. Renal function worsened early in hospitalization, patient started dialysis 03/11, tolerating well continue HD per nephrology kincaid initially placed for urinary retention s/p tunneled cath by Dr. Caputo Blood cx: pansensitive e.coli, urine cx: negative ; abd cultures: pseudomonas ID consulted vanc & merrem since 03/19 and 03/11, respectively - initially received zosyn diflucan added 03/23 Blood (03/09): e. coli Blood (03/13): negative Wound (03/14): pseudomonas, e.coli Blood (03/18): negative Blood (03/23): negative Given that WBC recently trended up, ID recommended repeat CT (03/24) negative for acute process, no obvious source of infection Repeat CT (03/28): Mild thickening of small bowel loops in the left abdomen, could represent mild inflammation/enteritis. No bowel obstruction is present. Paroxysmal afib earlier this hospitalization - post-operatively; briefly was on a amiodarone drip, continued on metoprolol. She has sinus tachycardia. continue PT, recommended inpatient rehab Code: full
[2022-03-31] MEDS: Meropenem 500 MG in NA CHLORIDE 0.9% 100 ML IV SCH (17:50)
[2022-03-31 18:49] LABS: HBsAG Nonreactive (Nonreactive)
--- NOTE | 2022-03-31 19:24 | P.PN ---
Date of Service: 03/31/22 Vital Signs Temp Pulse Resp BP Pulse Ox 97.8 F 93 H 19 123/81 98 03/31/22 16:00 03/31/22 17:50 03/31/22 16:00 03/31/22 17:50 03/31/22 16:00 Medications Acetaminophen (Acetaminophen 500 Mg Tab) 500 mg PO Q6H PRN PRN Reason: Pain scale 2-4 (Mild) Last Admin: 03/23/22 17:29 Dose: 500 mg Hydrocodone Bitart/Acetaminophen (Hydrocodone/Apap 7.5/325 Mg Tab) 1 tab PO Q4H PRN PRN Reason: Pain scale 8-10 (Severe) Last Admin: 03/29/22 14:06 Dose: 1 tab Alprazolam (Alprazolam 0.25 Mg Tablet) 0.25 mg PO BID PRN PRN Reason: ANXIETY Cholecalciferol (Vitamin D 5,000 Unit Cap) 5,000 unit PO DAILY [facility] Last Admin: 03/31/22 08:38 Dose: 5,000 unit Cyclobenzaprine HCl (Cyclobenzaprine 10 Mg Tab) 10 mg PO BIDP PRN PRN Reason: MUSCLE SPASMS Last Admin: 03/29/22 11:24 Dose: 10 mg Enteral Nutritional Formula (Ensure Clear 200 Ml Can) 237 ml PO BID [facility] Last Admin: 03/31/22 08:39 Dose: 237 ml Enteral Nutritional Formula (Nepro Shake 237 Ml Can) 237 ml PO TID [facility] Last Admin: 03/31/22 14:00 Dose: Not Given Epoetin Toni (Epoetin Toni 10,000 Unit/Ml Vial) 10,000 unit SQ M,W,F [facility] Last Admin: 03/30/22 18:42 Dose: 10,000 unit Famotidine (Famotidine 20 Mg Tab) 40 mg PO BEDTIME [facility]; Protocol Last Admin: 03/30/22 21:39 Dose: 40 mg Heparin Sodium (Porcine) (Heparin 1,000 Unit/Ml Vial) 2,000 unit IV EVERY HD PRN PRN Reason: DIALYSIS Last Admin: 03/30/22 13:11 Dose: 2,000 unit Hydralazine HCl (Hydralazine Hcl 20 Mg/Ml Vial) 10 mg IV Q6HP PRN PRN Reason: Titrate to SBP (MUST DEFINE) Last Admin: 03/27/22 20:51 Dose: 10 mg Hydromorphone HCl (Hydromorphone Hcl 0.5 Mg/0.5 Ml Inj) 0.5 mg IV Q4H PRN PRN Reason: Pain scale 5-7 (Moderate) Last Admin: 03/31/22 14:18 Dose: 0.5 mg Meropenem 500 mg/ Sodium (Chloride) 100 mls @ 200 mls/hr IV Q24H [facility] Last Admin: 03/31/22 17:50 Dose: 100 mls Fluconazole (Diflucan 400 Mg/200 Ml Iv (Premix)) 400 mg in 200 mls @ 100 mls/hr IV AFTER EACH DIALYSIS [facility] Sodium Chloride (Sodium Chloride) 250 mls @ 0 mls/hr IV .Q0M [facility] Losartan Potassium (Losartan Potassium 50 Mg Tablet) 25 mg PO DAILY [facility] Last Admin: 03/31/22 08:38 Dose: 25 mg Metoprolol Tartrate (Metoprolol Tar 50 Mg Tab) 100 mg PO BID 6AM 6PM [facility] Last Admin: 03/31/22 17:50 Dose: 100 mg Mirtazapine (Mirtazapine 15 Mg Tab) 15 mg PO BEDTIME [facility] Phenol (Phenol 1.4% Oral [place] 180ml) 2 appl MM Q4H PRN PRN Reason: SORE THROAT Last Admin: 03/15/22 11:02 Dose: 2 appl Prednisone (Prednisone 10 Mg Tab) 10 mg PO DAILY WITH BREAKFAST [facility] Last Admin: 03/31/22 08:38 Dose: 10 mg Sevelamer Carbonate (Sevelamer Carbonate 800 Mg Tablet) 800 mg PO TIDWM [facility] Last Admin: 03/31/22 17:50 Dose: 800 mg Sodium Chloride (Flush Normal Saline 10 Ml) 10 ml IV BID [facility] Last Admin: 03/31/22 08:38 Dose: 10 ml Sodium Chloride (Sodium Chloride 0.9% 10ml Inj) 10 ml IV UD PRN PRN Reason: Diluant Microbiology Results 03/09/22 06:47 Clean Catch Urine [place] Count - Final No growth. 03/09/22 06:47 Clean Catch Urine - Final No growth. Assessment/ Plan: Nephrology No chest pain No dyspnea Persistent LE weakness Feeling well No acute events overnight Vitals, medications, blood work and imaging reviewed in the chart. General: Oriented x3, Cooperative, NAD HEENT: Atraumatic Neck: Supple Respiratory: Normal respiratory effort Cardiovascular: Regular rate/rhythm, Edema Gastrointestinal: Tenderness Musculoskeletal: No clubbing, No contractures Integumentary: No rashes, No cyanosis Neurological: Normal speech Laboratory Data (last 24 hrs) 03/09/22 06:19: Sodium 138, Potassium 4.5, BUN 79 H, Creatinine 6.88 H*, Glucose 121 H, Total Bilirubin 0.1 L, AST 6 L, ALT 21, Alkaline Phosphatase 57, Lipase 129 03/09/22 06:19: WBC 4.7, Hgb 6.4 L*, Hct 20.5 L*, Plt Count 242 Imagings Data: EXAM DESCRIPTION: CT - Abdomen Pelvis Wo Contrast - 03/09/2022 8:37 am CLINICAL HISTORY: Abdominal pain, acute, nonlocalized COMPARISON: CT ABD PELVIS W CONTRAST dated 01/23/2013; Transvaginal Study Probe dated 02/05/2022 TECHNIQUE: Axial [address] imaging of the abdomen and pelvis was performed without IV contrast. No IV contrast was given because of allergy, abnormal renal function, patient refusal or physician request. No oral contrast administered. All CT scans are performed using dose optimization technique as appropriate and may include automated exposure control or mA/KV adjustment according to patient size. FINDINGS: No suspicious findings in the lung bases. The liver, spleen and pancreas show no suspicious findings on non-contrast imaging. Gallbladder is contracted around multiple gallstones. No biliary tree dilatation. No hydronephrosis or suspicious renal mass. No significant adrenal finding. Isodense renal masses and pyelonephritis cannot be excluded in the absence of IV contrast. The urinary bladder is without significant finding. IUD appears to be well positioned within the fundal and midportion of the uterus. Uterine contour is deformed by multiple fibroids. Along the left inferior margin of the fundus there is an approximately 3 centimeter fibroid. Right lateral approximately 3 centimeter fibroid seen as well. No fallopian tube or ovarian abnormality. There is no abnormal air or fluid collection in the pelvis. No gastric dilatation or gastric wall thickening. Fluid is present filling but not dilating the stomach. No duodenum abnormality seen. Proximal jejunal loops are abnormal. There is wall thickening and edema. Stranding is present in the adjacent mesenteric fat. In the proximal jejunum just distal to the ligament of Treitz there is abnormal air collection along the wall of the the jejunum extending as punctate areas of extraluminal free air. The adjacent splenic flexure region of the colon does have diverticulosis. However, no wall thickening or wall edema seen. The air is believed to be from jejunum rather than an acute diverticulitis. More distally the loops of ileum show no suspicious finding. No direct or indirect appendicitis findings. Left-sided colonic diverticulosis present without acute diverticulitis findings. No acute colon finding seen. No other area of free air or acute finding. No abscess or drainable fluid collection. No hernia, mass or bulky lymphadenopathy. No suspicious bony findings. Findings telephoned to referring physician 8:52 a.m. IMPRESSION: Wall thickening and edema involve multiple loops of jejunum with minimal amount of extra luminal free air adjacent to the proximal jejunum. No associated mass or foreign body identified. No abscess or drainable fluid collection. No free air distant from the jejunum. IUD appears to be well positioned within the multi fibroid uterus. No [employer] or pelvic acute finding identifiable. Diverticulosis without acute diverticulitis. Multi stone cholelithiasis without acute finding. 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 -No NSAIDs -Continue acute HD for HERMILA -Repeat HBV panel pending AG Acidosis in the setting of HERMILA -HD as ordered HTN with CKD -Continue Losartan with holding parameters -Continue Metoprolol 100mg BID in the setting of Paroxysmal Afib Severe malnutrition in the setting of poor oral intake Hypoalbuminemia -Advance diet as tolerated -Continue Nepro -Albumin IV prn Anemia in chronic illness -Retacrit TIW -PRBC as ordered CKD MBD HyperPO4 -Continue Vitamin D -Continue Renvela Jejunitis with performation may be due to Mycophenolate therapy Peritonitis Perforated colon sp Colectomy with colostomy -Continue IV Abx per ID -Dilaudid IV prn -Hold Mycophenolate -Continue Pepcid -Prednisone 10mg daily; wean as tolerated Severe LE weakness -Aggressive PT as tolerated Possible rehab placement soon
--- NOTE | 2022-03-31 19:43 | CON ---
Date of Consultation: 03/31/2022 Reason For Consultation: Second opinion. History Of Present Illness: The patient is a 32-year-old female, who came in on the 09 of March with abdominal pain, initial diagnosis was microperforation near the ligament of Treitz, jejunum. The patient was treated medically for about a week. Then, the patient's symptoms worsened and then repeat CAT scan revealed pneumoperitoneum that had increased. The patient was taken to the operating room. The perforation was found to be in the transverse colon. A Jennifer procedure was done with a colostomy. The patient then approximately 3 or 4 days later was taken back because of a hematoma underneath the skin and that was evacuated and there was some loose tissue near the top of the fascial closure, which was closed with [id number] sutures. The patient over the last few days apparently has had some dehiscence of the ostomy site as to the exact sequence of event is unclear, but yesterday the patient was noted to have complete dehiscence of the ostomy at the mucocutaneous juncture. The ostomy had retracted in greater than 1 cm and the patient requested a second opinion regarding what should be done next. I evaluated the patient. The patient is in no acute distress. The patient has multiple medical problems, which was reviewed in detail and these medical problems consist of lupus requiring steroid treatment, recently diagnosed end-stage renal disease requiring hemodialysis. The patient's laboratory data was reviewed. Her platelet count is 60,000. White count is 10,000, it was over greater than 25,000 for a few days ago. Chemistry reviewed. Vitals are stable. The patient is afebrile. Exam limited to the abdomen reveals a soft abdomen, but clean and dry incision on the top 2/3 of the incision--but at the inferior 1/3 of the incision, there is minimal serous drainage. The ostomy site reviewed. There is granulation tissue around the edges and the mucosa is almost 2 cm into the depths of the ostomy site. There is no peritonitis in the abdomen. Assessment: A 32-year-old female with multiple medical problems and comorbidities, status post Jennifer procedure, now with a retracted ostomy. Recommendations: I discussed this case with a colorectal colleague from another [facility] and he recommend the patient should be in a tertiary care facility because of her comorbidities and a colorectal specialist to address this issue and I agree the patient will need a revision of the ostomy. If the abdomen is clean at this time as the patient is more than 2 weeks out from the original surgery, consideration should be given to reversing the colostomy if medically and clinically safe. The plan of care and detail of the patient's disease process was discussed in detail with the patient as well as the mother and the staff. Arrangements at this point are being made for transfer to a tertiary care facility. PETRONA/ANTONIO Voice ID: [id number] Report ID: [id number] MTDD
[2022-03-31] MEDS ORDERED: MIRTAZAPINE 15 MG TAB PO SCH (21:00)
--- NOTE | 2022-03-31 21:17 | P.PN ---
Date of Service: 03/31/22 Received a page at [phone] that patient was concerned about her ostomy because it has not had any output since changed this morning despite her eating. I went to assess patient, and confirmed 0 output in bag. There was fecal matter seeping outside of the ostomy. She denies any pain. Patient's family demanded we contact wound care and get ostomy changed. I spoke with bathhouse keeper who got ahold of wound care who so graciously agreed to come in later this evening to change ostomy. Transfer has been initiated to another facility with colorectal speciality.
[2022-03-31] MEDS: FAMOTIDINE 20 MG TAB PO SCH (21:44)
[2022-04-01 04:48] LABS: Hematocrit 25.9 % (36.0-45.0); Lymphocytes % 8.3 % (15.3-44.8); MCV 84.8 fL (80-100); MPV 8.9 fL (7.6-11.3); RBC Red Blood Cell Count 3.06 M/uL (3.86-4.86)
[2022-04-01 05:00] LABS: AST/SGOT 13 U/L (15-37); Albumin 1.8 g/dL (3.4-5.0); Alkaline Phosphatase 96 U/L (45-117); BUN Blood Urea Nitrogen 42 mg/dL (7-18); Bicarbonate 29 mmol/L (21-32); Bilirubin Total 0.3 mg/dL (0.2-1.0); Glomerular Filtration Rate 18 ml/min (=/>90); Glucose Level 113 mg/dL (74-106); Potassium 3.4 mmol/L (3.5-5.1); Protein, Total 4.7 g/dL (6.4-8.2); Sodium Level 140 mmol/L (136-145)
[2022-04-01 05:19] LABS: ALT/SGPT < 10 U/L (12-78)
[2022-04-01] MEDS: METOPROLOL TAR 50 MG TAB PO SCH ×2 (05:59→17:25)
[2022-04-01] MEDS: HYDROMORPHONE HCL 0.5 MG/0.5 ML INJ IV PRN ×2 (06:00→09:47)
[2022-04-01] MEDS: SEVELAMER CARBONATE 800 MG TABLET PO SCH ×3 (08:00→16:46)
[2022-04-01 08:30] VITALS: O2SAT 98
[2022-04-01] MEDS: ENSURE CLEAR 200 ML CAN PO SCH (08:43)
[2022-04-01] MEDS: NEPRO SHAKE 237 ML CAN PO SCH ×2 (08:44→14:00)
[2022-04-01] MEDS: LOSARTAN POTASSIUM 50 MG TABLET PO SCH (08:45)
[2022-04-01] MEDS: predniSONE 10 MG TAB PO SCH (08:45)
[2022-04-01] MEDS: VITAMIN D 5,000 UNIT CAP PO SCH (08:47)
--- NOTE | 2022-04-01 09:26 | RAD REPORT ---
EXAM DESCRIPTION: CTAbdomen Pelvis Wo Contrast - 04/01/2022 9:06 am CLINICAL HISTORY: rule out bowel obstruction COMPARISON: Abdomen Pelvis Wo Contrast dated 03/28/2022; Abdomen Pelvis Wo Contrast dated 03/24/2022 ; Abdomen Pelvis W Contrast dated 03/19/2022; Abdomen Pelvis Wo Contrast dated 03/13/2022; Abdomen Pelvis Wo Contrast dated 03/09/2022 TECHNIQUE: CT of the abdomen and pelvis was performed. All CT scans are performed using dose optimization technique as appropriate and may include automated exposure control or mA/KV adjustment according to patient size. FINDINGS: Lower chest: Small bilateral effusions . Cardiomegaly. Liver: No acute abnormality or suspicious lesions. Biliary: Cholelithiasis. Stomach: No significant focal abnormality. Duodenum: No significant focal abnormality. Pancreas: No significant abnormality. Spleen: No significant abnormality. Adrenal: No suspicious lesions. Kidney/ureter: No hydronephrosis. No renal calculi. Retroperitoneum: No retroperitoneal adenopathy. Vascular: No aneurysm. Bowel: Left lower quadrant colostomy which appears intact. Contrast reaches the colostomy. Jennifer's pouch. Diverticulosis. No bowel obstruction. Peritoneum: Trace free fluid. No free air. Bladder: Rivera catheter within the bladder. Reproductive: Uterine fibroids. Bones: No acute fracture. Other: Laparotomy defect with small volume of subincisional fluid. Body wall edema. IMPRESSION: No bowel obstruction identified. Enteric contrast traverses the full extent of the small bowel and colon to the level of the colostomy.
--- NOTE | 2022-04-01 11:24 | P.PN ---
Date of Service: 04/01/22 Nephrology (S) Pt seen on HD today, events of recent days noted, pt denies any increase in abdominal pain. Vitals, medications, blood work and imaging reviewed in the chart. General: NAD, non tachypnec HEENT: Atraumatic, NC present Neck: Supple, Rt IJ TDC Respiratory: Normal respiratory effort, b/l air entry, reduced BS at the bases Cardiovascular: Mildly tachy, reg Gastrointestinal: Surgical incision covered with dressing, colostomy present with no stool in ostomy bag, distention improved Musculoskeletal: No clubbing, No contractures Ext: No sig LE edema Integumentary: No rashes, No cyanosis Neurological: Awake, alert, non encephalopathic, no tremors or myoclonus Labs reviewed in EMR Conclusions/Impression: Stage III ARF with presenting Cr level > 4 mg/dl in the setting of hypotension, anemia, sepsis, other likely leading to ATN CKD IV underlying with proteinuria due to Lupus nephritis -UOP has picked up some since last seen but Cr level still rises off HD although < 1 g/dl, pt underwent TDC placement last week on 03/27, cont iHD for now while monitoring for signs of renal recovery to prior baseline Underlying chronic HTN with relative systolic hypotension in the setting of acute loss anemia, narcotic pain administration, other -BP stable on HD Acute on chronic anemia related to surgical losses and chronic illnesses including lupus, CKD, other -Multiple transfusions in the past few weeks, Hb remains < 10, cont weekly TANIA dosing SLE with lupus nephritis. Leukocytosis improved -Monitor. Remains off IS, had been on stress dose steroids. Martin Joseph MD, [facility]
[2022-04-01 13:31] VITALS: BP 151/104; TEMP 98.2
--- NOTE | 2022-04-01 16:02 | P.PN ---
Subjective Date of Service: 04/01/22 Chief Complaint: Abdominal pain Patient was anxious this morning because she did not notice any colostomy output overnight. No fever. She denies increased abdominal pain. Physical Examination - Vital Signs Temperature: 98.2 F Blood Pressure: 151/104 Pulse: 81 Respirations: 23 Pulse Ox (%): 99 Assessment And Plan - Current Problems (Diagnosis) (1) Acute worsening of stage 4 chronic kidney disease Current Visit: Yes Status: Acute (2) Metabolic acidosis Current Visit: Yes Status: Acute (3) Jejunitis Current Visit: Yes Status: Acute (4) Bowel perforation Current Visit: Yes Status: Acute (5) Anemia in chronic kidney disease Current Visit: Yes Status: Acute (6) Lupus nephritis Current Visit: No Status: Acute (7) SLE (systemic lupus erythematosus related syndrome) Current Visit: No Status: Acute - Plan Physical exam GEN: AOx3, NAD HEENT: normal conjunctiva, sclera anicteric CV: sinus tachycardia, trace b/l pedal edema Pulm: clear to auscultation bilaterally ABD: soft, mild tenderness in lower abdomen, it appears her colostomy has retracted. Neuro: AOx3, moves all extremities Problem List perforated diverticula, s/p colectomy and ostomy acute worsening of CKD 4, now on dialysis Metabolic acidosis secondary to HERMILA anemia in chronic kidney disease h/o lupus nephritis SLE hyperphosphatemia Protein calorie malnutrition, severe Patient worsened on 03/14 and required ex-lap, colectomy, ostomy 03/15 - continued postoperatively with low BP, required levophed and was weaned after just several hours. given gentle IVF with improvement patient developed hematoma at surgical incision - s/p I&D (03/19), hematoma evacuation done. ANDREW drain removed 03/[address] abd/pelvis with swelling/edema of small intestine ostomy noted to retracted. Dr. Caceres recommend transfer to [facility] to be evaluated by the colorectal surgeon. Transfer initiated. Patient accepted for transfer pending bed availability. s/p 8uPRBC in total during hospitalization. goal Hgb >7.0 last transfused 2u PRBC 03/26 Hemoglobin stable Nephrology initiated IV steroids solumed 40q8h on 03/09; titrated to BID last week; and down to prednisone 20mg daily on 03/23 and has further been weaned leukocytosis was resolving in relation to weaning steroids WBCs increased 03/29, afebrile, clinically appears much improved, more comf ortable, minimal abdominal pain Leukocytosis significantly improved Renal function worsened early in hospitalization, patient started dialysis 03/11, tolerating well continue HD per nephrology kincaid initially placed for urinary retention s/p tunneled cath by Dr. aCputo Blood cx: pansensitive e.coli, urine cx: negative ; abd cultures: pseudomonas ID consulted vanc & merrem since 03/19 and 03/11, respectively - initially received zosyn diflucan added 03/23 Blood (03/09): e. coli Blood (03/13): negative Wound (03/14): pseudomonas, e.coli Blood (03/18): negative Blood (03/23): negative Given that WBC recently trended up, ID recommended repeat CT (03/24) negative for acute process, no obvious source of infection Repeat CT (03/28): Mild thickening of small bowel loops in the left abdomen, could represent mild inflammation/enteritis. No bowel obstruction is present. Repeat CT (04/01) done due to reduced colostomy output and colostomy retraction. No bowel obstruction. Paroxysmal afib earlier this hospitalization - post-operatively; briefly was on a amiodarone drip, continued on metoprolol. She has sinus tachycardia. continue PT, recommended inpatient rehab. Patient has been accepted for transfer to [facility] pending bed availability Code: full
--- NOTE | 2022-04-01 16:31 | PN ---
Subjective: The patient is getting dialyzed. Denies any headache, nausea, vomiting, chest pain, abd ominal pain, constipation, diarrhea, being transferred out to [facility] for evaluation by [facility] surgeon. Objective: Vital Signs: Reviewed. Lungs: Basal crackles. Heart: S1, S2. Regular. Abdomen: Soft. Bowel sounds present. Abdominal wound noted. Laboratory Data: Shows WBC 11.8, hemoglobin 8.6, platelets 81. Sodium 140, potassium 3.4, chloride 106, bicarb 29, BUN 42, creatinine 3.3. Albumin level is 1.8. The patient is currently on Diflucan and meropenem. Assessment And Plan: Status post perforation of diverticulum and hematoma evacuation. The patient's white count has been stable, currently on meropenem and Diflucan, being transferred out for further evaluation and management by Colorectal surgeons because of problem with the stoma. Continue support iron care and wound care. We will follow the patient closely. NF/MODL Voice ID: [id number] Report ID: [id number]
--- NOTE | 2022-04-01 17:08 | P.DS ---
Admission Date: 03/09/22 Discharge Date: 04/01/22 Disposition: TRANSFER TO [facility] Discharge Condition: FAIR Reason for Admission: Abdominal pain - Problems (1) Acute worsening of stage 4 chronic kidney disease Current Visit: Yes Status: Acute (2) Metabolic acidosis Current Visit: Yes Status: Acute (3) Jejunitis Current Visit: Yes Status: Acute (4) Bowel perforation Current Visit: Yes Status: Acute (5) Anemia in chronic kidney disease Current Visit: Yes Status: Acute (6) Lupus nephritis Current Visit: No Status: Acute (7) SLE (systemic lupus erythematosus related syndrome) Current Visit: No Status: Acute Brief History of Present Illness: 31-year-old woman recently diagnosed with lupus nephritis, started on immunosuppressive therapy including CellCept presented to the emergency department with a complaint of abdominal pain of onset 3 weeks ago that has gotten progressively worse since the past 5 days. Symptoms associated with nausea, no vomiting. Patient was still complaining of severe pain after given a shot of IV morphine and Dilaudid in the ED. Blood work shows marked metabolic acidosis with a bicarb of 11, pH 7.2. Serum creatinine has increased from 6.8, it was [address] about [address] abdomen and pelvis demonstrated wall thickening and edema involve multiple loops of jejunum with minimal amount of extraluminal free air adjacent to the proximal jejunum. Hemoglobin of 6.4. Of note patient had a similar presentation in October 2021. Nephrology Dr. Potts contacted, patient started on 1 unit PRBC. She was admitted for further management. Hospital Course: Problem List perforated diverticula, s/p colectomy and ostomy acute worsening of CKD 4, now on dialysis Metabolic acidosis secondary to HREMILA anemia in chronic kidney disease h/o lupus nephritis SLE hyperphosphatemia Protein calorie malnutrition, severe Patient admitted to the medical floor and started on aggressive medical therapy with antibiotics. Mycophenolate held due to concern for bowel perforation. Patient condition worsened on 03/14 and required ex-lap, colectomy, colostomy. Patient found to have perforated diverticulitis. 03/15 - continued postoperatively with low BP, required levophed and was weaned after just several hours. given gentle IVF with improvement patient developed hematoma at surgical incision - s/p I&D (03/19), hematoma evacuation done. ANDREW drain removed 03/[address] abd/pelvis with swelling/edema of small intestine ostomy noted to retracted. Dr. Caceres recommend transfer to [facility] to be evaluated by the colorectal surgeon. Transfer initiated. Patient accepted for transfer. s/p 8uPRBC in total during hospitalization. goal Hgb >7.0 last transfused 2u PRBC 03/26 Hemoglobin stable Nephrology initiated IV steroids solumed 40q8h on 03/09; titrated to BID last week; and down to prednisone 20mg daily on 03/23 and has further been weaned leukocytosis was resolving in relation to weaning steroids WBCs increased 03/29, afebrile, clinically appears much improved, more comfortable, minimal abdominal pain Leukocytosis significantly improved Renal function worsened early in hospitalization, patient started dialysis 03/11, tolerating well continue HD per nephrology kincaid initially placed for urinary retention s/p tunneled cath by Dr. Caputo Blood cx: pansensitive e.coli, urine cx: negative ; abd cultures: pseudomonas ID consulted Patient was initially on IV Zosyn. Antibiotics changed to vanc & merrem on 03/19 and 03/11, respectively. diflucan added 03/23 Blood (03/09): e. coli Blood (03/13): negative Wound (03/14): pseudomonas, e.coli Blood (03/18): negative Blood (03/23): negative Given that WBC recently trended up, ID recommended repeat CT (03/24) negative for acute process, no obvious source of infection Repeat CT (03/28): Mild thickening of small bowel loops in the left abdomen, could represent mild inflammation/enteritis. No bowel obstruction is present. Repeat CT (04/01) done due to reduced colostomy output and colostomy retraction. No bowel obstruction. Paroxysmal afib earlier this hospitalization - post-operatively; briefly was on a amiodarone drip, continued on metoprolol. Subsequently with sinus tachycardia which later resolved. Seen by PT for rehab. Inpatient rehab recommended. Clinically stable for transfer. Vital Signs/Physical Exam: Temp Pulse Resp BP Pulse Ox 98.2 F 81 23 H 151/104 H 99 04/01/22 16:01 04/01/22 16:01 04/01/22 16:01 04/01/22 16:01 04/01/22 16:01 General: Alert, In no apparent distress, Oriented x3 HEENT: Mucous membr. moist/pink Neck: Supple, JVD not distended Respiratory: Clear to auscultation bilaterally, Normal air movement Cardiovascular: No edema, Regular rate/rhythm, Normal S1 S2 Gastrointestinal: Soft and benign, Non-distended, Other (Left-sided colostomy, retracted, surrounding granulation tissue.) Musculoskeletal: No swelling Integumentary: No rashes, No cyanosis Neurological: Normal strength at 5/5 x4 extr Laboratory Data at Discharge: WBC 11.8 K/uL (4.3-10.9) H D 04/01/22 04:30 Hgb 8.6 g/dL (12.0-15.0) L D 04/01/22 04:30 Hct 25.9 % (36.0-45.0) L D 04/01/22 04:30 Plt Count 81 K/uL (152-406) L* D 04/01/22 04:30 Sodium 140 mmol/L (136-145) 04/01/22 04:30 Potassium 3.4 mmol/L (3.5-5.1) L 04/01/22 04:30 BUN 42 mg/dL (7-18) H 04/01/22 04:30 Creatinine 3.30 mg/dL (0.55-1.3) H 04/01/22 04:30 Glucose 113 mg/dL (74-106) H 04/01/22 04:30 Uric Acid 14.1 mg/dL (2.6-6.0) H D 03/10/22 04:23 Phosphorus 2.9 mg/dL (2.5-4.9) 03/29/22 03:41 Magnesium 1.9 mg/dL (1.8-2.4) 03/31/22 04:30 Total Bilirubin 0.3 mg/dL (0.2-1.0) 04/01/22 04:30 AST 13 U/L (15-37) L 04/01/22 04:30 ALT < 10 U/L (12-78) L 04/01/22 04:30 Alkaline Phosphatase 96 U/L (45-117) 04/01/22 04:30 Lipase 129 U/L (73-393) 03/09/22 06:19 Home Medications: ALPRAZolam [Xanax*] 0.25 mg PO BID PRN tab 04/01/22 Cholecalciferol (Vitamin D3) [Vitamin D 5,000 IU Cap*] 5,000 unit PO DAILY cap 04/01/22 Cyclobenzaprine [Flexeril*] 10 mg PO BIDP PRN tab 04/01/22 Ensure Clear 237 ml PO BID can 04/01/22 Epoetin [Retacrit] 10,000 unit SQ M,W,F vial 04/01/22 Famotidine [Pepcid*] 40 mg PO BEDTIME tab 04/01/22 Heparin [Heparin 1,000 units/mL *] 4,000 unit IV EVERY HD PRN vial 04/01/22 Hydrocodone 7.5/APAP 325 [[place] 7.5/325 mg*] 1 tab PO Q4H PRN tab 04/01/22 Hydromorphone [Dilaudid] 0.5 mg IV Q4H PRN syr 04/01/22 Losartan Potassium [Cozaar*] 25 mg PO DAILY 04/01/22 Metoprolol Tartrate [Lopressor*] 100 mg PO BID 6AM 6PM tab 04/01/22 Mirtazapine [Remeron*] 15 mg PO BEDTIME tab 04/01/22 Nepro Shake [Nepro*] 237 ml PO TID can 04/01/22 Sevelamer Carbonate [Renvela*] 800 mg PO TIDWM 04/01/22 predniSONE [Deltasone*] 10 mg PO DAILY WITH BREAKFAST tab 04/01/22 Followup: Paul Saunders MD [Primary Care Provider] - (Call to schedule appointment) Time spent managing pt's care (in minutes): 40
[2022-04-01] MEDS: EPOETIN ALFA 10,000 UNIT/ML VIAL SQ SCH (17:25)
[2022-04-01] MEDS: Meropenem 500 MG in NA CHLORIDE 0.9% 100 ML IV SCH (17:26)
== END 2022-04-01 18:29 | disposition short-term general hospital (02) | DRG 329 ==
LOC: ER 05:00 → UNDOADMIN 10:44 → ERHOLD 10:44 → 2ND 10:44 → 3RD-ICU 14:48 → ERHOLD 14:48 → 3RD-ICU 03-12 15:15 → 2ND 03-12 15:15 → 3RD-ICU 03-14 15:48 → 4TH 03-17 17:35 → 3RD-ICU 03-17 17:35 → UNDOADMIN 03-18 15:14 → 3RD-ICU 03-18 15:14 → 2ND 03-18 15:14 → 4TH 03-18 15:14 → 2ND 03-18 17:36 → 4TH 03-18 17:36 → 3RD-ICU 03-19 08:36 → 2ND 03-19 08:36
PROVIDERS: ADMIT Internal Medicine; ATTEND Internal Medicine
PROC: 0T9B70Z Drainage of Bladder with Drainage Device, Via Natural or Artificial Opening (ICD-10-PCS; 2022-03-09)
PROC: 30233N1 Transfusion of Nonautologous Red Blood Cells into Peripheral Vein, Percutaneous Approach (ICD-10-PCS; 2022-03-09)
PROC: 30233N1 Transfusion of Nonautologous Red Blood Cells into Peripheral Vein, Percutaneous Approach (ICD-10-PCS; 2022-03-10)
PROC: 05H633Z Insertion of Infusion Device into Left Subclavian Vein, Percutaneous Approach (ICD-10-PCS; 2022-03-11)
PROC: 5A1D70Z Performance of Urinary Filtration, Intermittent, Less than 6 Hours Per Day (ICD-10-PCS; 2022-03-11)
PROC: 30233N1 Transfusion of Nonautologous Red Blood Cells into Peripheral Vein, Percutaneous Approach (ICD-10-PCS; 2022-03-11)
PROC: 5A1D70Z Performance of Urinary Filtration, Intermittent, Less than 6 Hours Per Day (ICD-10-PCS; 2022-03-13)
PROC: 0DTG0ZZ Resection of Left Large Intestine, Open Approach (ICD-10-PCS; 2022-03-14)
PROC: 5A1D70Z Performance of Urinary Filtration, Intermittent, Less than 6 Hours Per Day (ICD-10-PCS; 2022-03-14)
PROC: 0D1L0Z4 Bypass Transverse Colon to Cutaneous, Open Approach (ICD-10-PCS; principal; 2022-03-14 12:30)
PROC: 5A1D70Z Performance of Urinary Filtration, Intermittent, Less than 6 Hours Per Day (ICD-10-PCS; 2022-03-16)
PROC: 30233N1 Transfusion of Nonautologous Red Blood Cells into Peripheral Vein, Percutaneous Approach (ICD-10-PCS; 2022-03-16)
PROC: 5A1D70Z Performance of Urinary Filtration, Intermittent, Less than 6 Hours Per Day (ICD-10-PCS; 2022-03-18)
PROC: 0W9F0ZZ Drainage of Abdominal Wall, Open Approach (ICD-10-PCS; 2022-03-19)
PROC: 0WQF0ZZ Repair Abdominal Wall, Open Approach (ICD-10-PCS; 2022-03-19)
PROC: 5A1D70Z Performance of Urinary Filtration, Intermittent, Less than 6 Hours Per Day (ICD-10-PCS; 2022-03-19)
PROC: 30233N1 Transfusion of Nonautologous Red Blood Cells into Peripheral Vein, Percutaneous Approach (ICD-10-PCS; 2022-03-19)
PROC: 5A1D70Z Performance of Urinary Filtration, Intermittent, Less than 6 Hours Per Day (ICD-10-PCS; 2022-03-21)
PROC: 5A1D70Z Performance of Urinary Filtration, Intermittent, Less than 6 Hours Per Day (ICD-10-PCS; 2022-03-23)
PROC: 5A1D70Z Performance of Urinary Filtration, Intermittent, Less than 6 Hours Per Day (ICD-10-PCS; 2022-03-25)
PROC: 30233N1 Transfusion of Nonautologous Red Blood Cells into Peripheral Vein, Percutaneous Approach (ICD-10-PCS; 2022-03-26)
PROC: 0JH63XZ Insertion of Tunneled Vascular Access Device into Chest Subcutaneous Tissue and Fascia, Percutaneous Approach (ICD-10-PCS; 2022-03-27)
PROC: 02HV33Z Insertion of Infusion Device into Superior Vena Cava, Percutaneous Approach (ICD-10-PCS; 2022-03-27)
PROC: 5A1D70Z Performance of Urinary Filtration, Intermittent, Less than 6 Hours Per Day (ICD-10-PCS; 2022-03-30)
PROC: 5A1D70Z Performance of Urinary Filtration, Intermittent, Less than 6 Hours Per Day (ICD-10-PCS; 2022-04-01)
DX: K57.21 Diverticulitis of large intestine with perforation and abscess with bleeding (principal); E43 Unspecified severe protein-calorie malnutrition; K65.9 Peritonitis, unspecified; N18.6 End stage renal disease; E87.2 Acidosis; N17.9 Acute kidney failure, unspecified; K52.1 Toxic gastroenteritis and colitis; R78.81 Bacteremia; T81.31XA Disruption of external operation (surgical) wound, not elsewhere classified, initial encounter; D62 Acute posthemorrhagic anemia; M32.14 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 lupus erythematosus; L76.32 Postprocedural hematoma of skin and subcutaneous tissue following other procedure; L76.22 Postprocedural hemorrhage of skin and subcutaneous tissue following other procedure; I10 Essential (primary) hypertension; D63.1 Anemia in chronic kidney disease; I95.9 Hypotension, unspecified; E86.1 Hypovolemia; E88.09 Other disorders of plasma-protein metabolism, not elsewhere classified; E83.39 Other disorders of phosphorus metabolism; B96.20 Unspecified Escherichia coli [E. coli] as the cause of diseases classified elsewhere; R33.9 Retention of urine, unspecified; E87.8 Other disorders of electrolyte and fluid balance, not elsewhere classified; E87.5 Hyperkalemia; R00.0 Tachycardia, unspecified; I48.0 Paroxysmal atrial fibrillation; K42.9 Umbilical hernia without obstruction or gangrene; K80.20 Calculus of gallbladder without cholecystitis without obstruction; D25.9 Leiomyoma of uterus, unspecified; Y83.3 Surgical operation with formation of external stoma as the cause of abnormal reaction of the patient, or of later complication, without mention of misadventure at the time of the procedure; T45.1X5A Adverse effect of antineoplastic and immunosuppressive drugs, initial encounter; Z20.822 Contact with and (suspected) exposure to COVID-19; Z68.35 Body mass index [BMI] 35.0-35.9, adult; Z99.2 Dependence on renal dialysis
CPT/HCPCS: 36415; 36430; 71045; 71275; 74018; 74019; 74176; 74177; 76000; 80048; 80053; 80069; 80202; 81001; 81003; 81015; 81025; 82570; 82805; 82947; 83036; 83605; 83690; 83735; 84100; 84132; 84145; 84300; 84550; 85014; 85018; 85025; 85027; 86160; 86225; 86317; 86704; 86705; 86706; 86850; 86900; 86901; 87040; 87070; 87075; 87077; 87086; 87088; 87186; 87205; 87324; 87340; 88300; 88307; 90935; 93005; 93306; 94010; 96372; 97110; 97112; 97161; 97164; 97530; 99251; 99283; C1752; C1769; C9113; J0282; J0295; J0330; J0360; J0610; J0690; J0692; J1100; J1170; J1450; J1642; J1644; J1720; J2250; J2370; J2405; J2543; J2704; J2710; J2765; J2920; J2930; J3010; J3370; J7030; J7040; J7050; J7060; J7120; J7512; P9016; P9045; P9047; Q5106; Q9967; U0003

== ENCOUNTER 2022-03-24 08:54 | Inpatient (IN) | payer BC ==
--- NOTE | 2022-04-09 10:40 | R.PREADM ---
PRE-ADMISSION SCREENING FORM SCREENING DATE AND TIME 04/09/2022 02:44 (CDT) ANTICIPATED REHAB ADMISSION DATE 04/09/2022 REFERRING FACILITY [facility] REFERRAL DATE AND TIME 03/24/2022 09:41 (CDT) ACUTE ADMIT DATE 03/09/2022 Previous Rehabilitation(s): No. ACUTE CASTING CHIPPER/DC RECEPTIONIST DOCTOR'S OFFICE Estela Darden ATTENDING PHYSICIAN [place] REFERRING PHYSICIAN [facility] REHAB FACILITY [facility] PHYSICIAN REVIEWER Dr. Viet Brown M.D. MR# [id number] NAME BRIANNA NIETO ADDRESS [address] [place] [address] [employer] PHONE [facility] [id number] DATE OF 1990 AGE 32 SSN# [id number] GENDER female MARITAL STATUS Single (Never ) unknown race ADMIT FROM 02 - [facility] PRE-HOSPITAL LIVING SETTING 01 - Home (private home/apt. board/care, assisted living, chcf, transitional living) HOME TYPE AND DETAILS Type of home: single family house # of levels in the residence: 1 # of steps within the residence: 0 # of steps to enter the residence: 0 PRE-HOSPITAL LIVING WITH Family/Relatives FAMILY SUPPORT Yes FAMILY SUPPORT DETAILS Pt will be moving in with mother once discharged PHONE PRIMARY FAMILY CONTACT ON ADM.? no IS PRIMARY FAMILY CONTACT AUTH. REP.? no PHONE 1ST CONTACT ON ADM. no IS 1ST CONTACT AUTH. REP.? no PHONE 2ND CONTACT ON ADM.? 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 No ANOTHER GREEN PARTY RESPONSIBLE? No PRIMARY REHAB/ACUTE DIAGNOSIS: K57.20 Perforated Diverticular disease K63.1 Perforated Viscus ONSET DATE 02/16/2022 REHAB IMPAIRMENT CATEGORY (TERA): 20 Miscellaneous (Misc) does NOT meet 60% rule PRIMARY DIAGNOSIS-RELATED SURGERIES: Exploratory Laparotomy Mobilization of splenic flexure Left colectomy End colostomy with Rangel's pouch Exploration of Wound Evacuation of Hematoma COMORBID REHAB/ACUTE DIAGNOSES: - Tier 1 Dependence on renal dialysis (Z99.2) - Tier 2 Enterocolitis due to Clostridium difficile (A04.7) - Tier 3 Acute kidney failure, unspecified (N17.9) Sepsis, unspecified organism (A41.9) - Non-Tiered Acidosis (E87.2) Systemic lupus erythematosus, unspecified (M32.9) 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 lupus erythematosus (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.14) Anemia in chronic kidney disease (D63.1) Other disorders of phosphorus metabolism (E83.39) Hypertensive chronic kidney disease with stage 1 through stage 4 chronic kidney disease, or unspecifi ed chronic kidney disease (I12.9) Unspecified severe protein-calorie malnutrition (E43) INTERVENTIONS: - Acute Kidney Injury Hemodialysis as ordered Administer IV/Oral medications as indicated Assess areas for edema Daily Weights Assess/Monitor pt cardiac/respiratory status regularly Assess/Monitor pt for s/s of kidney insufficiency Assess/Monitor pt renal function/labs - Metabolic Acidosis Administer IV/Oral medications as indicated Assess/Monitor pt labs - Hypertension Assess/ Monitor patient B/P and treat with prescribed medications Increase physical activity - Severe Malnutrition Set appropriate short-term and long-term goals Ascertain healthy body weight for age and height Promote properpositioning Provide good oral hygiene and dentition schedule rest periods before meals Eating small, frequent meals - Anemia Monitor pt labs Anticipate the need for transfusion given pt hx Monitor for bleeding Treat with IV medications and TANIA - Jejunitis Administer IV abx, pain medications and steroids as prescribed Monitor surgical site for bleeding/infection - Hyperkalemia/hyperphosatemia Pt on renal diet HD - Afib Assess/Monitor pt cardiac and respiratory status regularly Monitor pt labs Vitals will be monitored/assessed regularly Administer prescribed anticoagulants and monitor for effectiveness RISK FOR COMPLICATIONS: - DVT Active and Passive ROM exercises Administer medications per MD order Assist patient with frequent position changes Elevate BLE - Skin Breakdown Encourage ambulation as tolerated Repositioning q 2 hours Use of pillows or foam wedges while in bed - Pain Anticipate the need for pain medication for optimal pain managment Assess pt for pain and Administer prescribed pain medication as needed Assist patient with frequent position changes at least every 2 hours Educate patient on relaxation and deep breathing techniques - Failure to Thrive Monitor pt labs Nutrition to follow - Bleeding Assess/ Monitor pt for injury Maintain pt safety - Stroke Assess/ Monitor and maintain patient pain level Assess/ Monitor patient blood pressure - Infection Assess for s/s of infection Monitor pt response to antibiotics Monitor pt v/s - Cardiac Failure Assess/Monitor pt cardiac status SUMMARY OF ACUTE HOSPITALIZATION: Pt. is a 32 yo female of unknown race. On 02/16/2022 she was admitted to [facility] with diagnosis K57.20 Perforated Diverticular disease. Her impairment category is Medically Complex Conditions 17 - Infections (17.1). Pre-morbidly, Pt. was independent/mod-I in Locomotion and Self-Care; and she had good Balance, Transf ers Control, Self-Care, and Endurance. Currently, she has deficits of Locomotion, Balance, Transfers Control, Self-Care, and Endurance. Pt. is now referred to [facility] for acute in-patient rehabilitation in order to maximize patient's functional independence in activities of daily living, strength, ROM, and mobi lity. Patient has realistic goal of being discharged at assistance level 6-Tiffany to reside at Home with Fam fermin/Relatives. 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) Hypertensive chronic kidney disease with stage 1 through stage 4 chronic kidney disease, or unspecifi ed chronic kidney disease (I12.9) Other disorders of phosphorus metabolism (E83.39) Sepsis, unspecified organism (A41.9) Systemic lupus erythematosus, unspecified (M32.9) Unspecified severe protein-calorie malnutrition (E43) MEDICATION ALLERGIES: Toradol Tramadol ENVIRONMENTAL ALLERGIES: - Substance Allergies None Known - Other Allergies None Known CODE STATUS: Full code WEIGHT/HEIGHT/BMI: WEIGHT 197 lbs HEIGHT 5' 3" BMI 34.9 DIET: - Diet Type Renal - Diet - Solid Texture Regular - Diet - Liquid Texture Regular - Tube Feed N/A SKIN DIAGRAM: R IJ Central Line on Right arm; extent - small; stage - NS(Not Stageable). Treatment - Per Physician' s Orders. Colostomy on Abdomen; extent - small; stage - NS(Not Stageable). Treatment - Per Physician's Orders. HD catheter on Left arm; extent - small; stage - NS(Not Stageable). Treatment - Per Physician's Order s. Rivera Cath on Genitalia; extent - small; stage - NS(Not Stageable). Treatment - Per Physician's Order s. Incision on Abdomen; extent - small; stage - NS(Not Stageable). Treatment - Per Physician's Orders. REVIEW OF SYSTEMS: - Gen Alert and awake Lying in bed No apparent distress Oriented to: person, time, and place - Vital Signs Temperature: 97.9 F SBP/DBP: 112/69 Pulse: 80 Resp: 21 Vital signs stable, afebrile - CVS RRR VITAL SIGNS Temperature: 97.9 F SBP/DBP: 112/69 Pulse: 80 Resp: 21 Vital signs stable, afebrile 03/24/2022 MEDICATIONS/TREATMENT: Other- See attached MAR (Medication Administration Record). CURRENT SPHINCTER CONTROL: Pre-hospital bladder status: unspecified # of bladder accidents in the last 7 days prior to screenin Pre-hospital bowel status: unspecified # of bowel accidents in the last 7 days prior to screenin Last Bowel Movement Date: 03/24/2022 CURRENT LOCOMOTION STATUS: distance walked 0 feet DETAILED CURRENT FUNCTIONAL STATUS: - Bladder accident frequency: 7-Ind - No accidents in the past 7 days - Bowel accident frequency: 7-Ind - No accidents in the past 7 days - Walking score based on distance walked: 0(N/A) - Wheelchair score based on distance traveled: 0(N/A) QI SCORES: - Self-Care A. Eating 04-Supervision or touching assistance B. Oral hygiene 04-Supervision or touching assistance C. Toileting hygiene 01-Dependent E. Shower/bathe self 01-Dependent F. Upper body dressing 03-Partial/moderate assistance G. Lower body dressing 01-Dependent H. Putting on/taking off footwear 01-Dependent - Mobility A. Roll left and right 88-Not attempted due to medical condition or safety concerns B. Sit to lying 01-Dependent C. Lying to sitting on side of bed 01-Dependent D. Sit to stand 88-Not attempted due to medical condition or safety concerns E. Chair/[id number] transfer 88-Not attempted due to medical condition or safety concerns F. Toilet transfer 88-Not attempted due to medical condition or safety concerns G. Car transfer 88-Not attempted due to medical condition or safety concerns I. Walk 10 feet 88-Not attempted due to medical condition or safety concerns J. Walk 50 feet with two turns 88-Not attempted due to medical condition or safety concerns K. Walk 150 feet 88-Not attempted due to medical condition or safety concerns L. Walking 10 feet on uneven surfaces 88-Not attempted due to medical condition or safety concerns M. 1 step (curb) 88-Not attempted due to medical condition or safety concerns N. 4 steps 88-Not attempted due to medical condition or safety concerns O. 12 steps 88-Not attempted due to medical condition or safety concerns P. Picking up object 88-Not attempted due to medical condition or safety concerns R. Wheel 50 feet with two turns 09-Not applicable S. Wheel 150 feet 09-Not applicable - Bladder and Bowel Bladder continence 9-Not applicable Bowel continence 0-Always continent - Endurance Fair - Balance Poor - Safety Awareness Fair CURRENT FUNC. DEFICITS: Self-Care, Endurance, Balance, Safety Awareness, and Mobility CURRENT / PREVIOUS ASSISTIVE DEVICES: Rolling Walker THERAPY NOTES FROM ACUTE CARE: Attached. SPECIAL NEEDS: - Safety Concerns Skin breakdown and Fall precautions needed due to skin breakdown risk, Poor balance, and Risk of inju ry - IV Central Line inserted on unknown HD cath - Wound Abd wound - Dialysis Dialysis TBD - Fall Precautions Due to poor balance PRECAUTIONS: - Fall Precaution Bed alarm TABS alarm Wheel chair alarm - Bleeding Risk Lovenox - DVT Risk due to restricted mobility - Skin Breakdown Risk Routine Wound care due to restricted mobility PATIENT NEEDS ACTIVE AND ONGOING THERAPEUTIC INTERVENTION OF MULTIPLE THERAPY DISCIPLINES, INCLUDING: - Dietary and Nutrition Adequate Nutrition. Nutritional Education. Nutritional Supplements. - Occupational Therapy Cognitive Retraining. Patient needs Occupational Therapy for a daily minimum of 1.5 hours at least 5 out of 7 days, to improve Activities of Daily Living, including: Eating, Grooming, Bathing, Dressing, Toileting, Toilet Transfers, Community Reintegration, Higher functional activities, Adaptive Equipme nt, Splinting, Household Tasks, and Other activities as determined. Visual Perceptual Training. - Physical Therapy Patient needs Physical Therapy for a daily minimum of 1.5 hours at least 5 out of 7 days, to improve: Mobility, Strengthening, Transfers, Stretching, ROM, Endurance, Ability to manage stairs, Gait, and Balance. PATIENT NEEDS CLOSE MEDICAL SUPERVISION BY A REHABILITATION PHYSICIAN FOR: Coordination of Treatment Team Medical and Co-Morbidity Management Wound Care Bowel and Bladder Management Post-Op Complications Pain Management PATIENT REQUIRES 24X7 REHAB NURSING FOR MEDICAL AND FUNCTIONAL MGT. OF THE FOLLOWING DEFICITS: Patient requires 24x7 Rehabilitation Nursing for: Pain Issues, Identifying and preventing risk factor s, Monitoring and reporting current medical conditions, Assisting with ambulation and transfer, Devyn ting with all ADL-s, Teaching patients about disease process and medications, Family teaching, Provid ing safe environment, Bowel and Bladder Issues, Skin Integrity, and Medication Management PATIENT REQUIRES INTENSIVE, COORDINATED INTERDISCIPLINARY APPROACH TO REHAB: Patient needs Dietary and Nutrition Services for: Adequate Nutrition, Nutritional Supplements, and Nu tritional Education Patient needs Starter Mechanic and/or Case Management for: Discharge Planning, Arranging Home Equipmen t or Services, and Family Interventions PATIENT REHAB POTENTIAL: Lucila NIETO is able and expected to receive 3 hours of individualized therapy daily on at least 5 of e very 7 days Lucila NIETO's prognosis for significant practical improvement within a reasonable period of time appea rs Good Expected level of measurable improvement will be of a practical value to Lucila NIETO's functional capa city or adaptations to impairments Has a viable Discharge Plan Medically appropriate; condition is sufficiently stable to participate in intensive rehab program DISCHARGE PLAN: - Estimated Length of Stay (days) 13. - Consensus on plan Discharge plan has been discussed with primary caregiver. Patient/Family is in agreement with the russell n. Primary caregiver is in agreement with the plan. - Patient/Family Goals Return home independently. - Potential barriers to discharge Any lines must be removed or patient/caregiver needs to be educated on line care. - Planned Living Setting Upon Discharge Home, to live with Family/Relatives. Transitional Living. RECOMMENDED CARE LEVEL: IRF RECOMMENDATION DETAILS: Recommended Admission to Comprehensive Rehabilitation Program to Increase Functional [place] SCREENER'S COMPLETENESS CONFIRMATION: - Screening Confirmation The patient data collection on this preadmission screening form is finished PHYSICIANS REVIEW AND ADMISSION DETERMINATION Admit - Based on my review of the Pre-Admission Screening results, in my medical judgment and experie nce, I concur with the findings and recommend admission to [facility], as this patient requires an IRF level of care. SIGNATURE PANEL: Clinical Liaison - [electronically] signed by Meeta Arora on 03/24/2022 at 13:31 (CDT) Physician Reviewer - [electronically] signed by Dr. Viet Brown M.D. on 04/09/2022 at 10:39 (CDT )
--- OUTSIDE RECORDS SUMMARY | 2022-04-09 16:45 | XMS REPORT | Continuity of Care Document ---
:1990 Author Organization [facility] t Address [address] [place] [address] Care Team Providers Name Role Phone Grace Joseph DO Primary Care Physician DAI MENDOZA Attending Clinician Unavailable TORSTEN CATES Attending Clinician Unavailable TOBI BLANCO Attending Clinician Unavailable Pob, Adc Lab Main Attending Clinician Unavailable Felicita Dubois MD Attending Clinician FELICITA DUBOIS Attending Clinician Unavailable Doctor Unassigned, [place] Attending Clinician Unavailable Grace Joseph DO Attending Clinician GRACE JOSEPH Attending Clinician Unavailable JACK ROLLE Attending Clinician Unavailable HONORIO FELICIANO Attending Clinician Unavailable UNKNOWN, ATTENDING Attending Clinician Unavailable ANIVAL RASCON Admitting Clinician Unavailable LYNSEY TAPIA Admitting Clinician Unavailable HONORIO FELICIANO Admitting Clinician Unavailable Payers Payer Name Policy Type Policy Number Effective Date Expiration Date S ource BCBS PPO POS EPO [id number] 2020 00:00:00 CHOICE BCBS 2 [id number] 2021 00:00:00 AETNA TRS CARE [id number] 2014 00:00:00 Problems Condition Condition Condition Status Onset Resolution Last Treating Co mments Source Name Details Category Date Date Treatment Clinician Date Lupus Lupus Disease Active [facility] [place] [facility] Allergies, Adverse Reactions, Alerts Allergy Allergy Status Severity Reaction(s) Onset Inactive Treating Comm ents Source Name Type Date Date Clinician KETOROLA Allergy Active Other [facility] C 8- 00:00: 00 TRAMADOL Allergy Active [facility] 04-01 00:00: 00 MELOXICA DRUG Active Unknown-Cmnt Un yasmani M INGREDI 03-12 ity of 00:00: [place] [facility] KETOROLA DRUG Active Unknown-Cmnt Un yasmani C INGREDI 03-12 ity of 00:00: [place] [facility] Meloxica Propensi Active Unknown - Uni vers m ty to See comments 03-12 ity of adverse 00:00: [place] reaction 00 [facility] s [facility] Ketorola Propensi Active Unknown - Uni vers c ty to See comments 03-12 ity of adverse 00:00: [place] reaction 00 [facility] s Branch NO KNOWN Allergy Active [facility] ALLERGIE S Social History Social Habit Start Date Stop Date Quantity Comments Source Tobacco use and 2017-03-12 2017-03-12 Never used [facility] exposure 00:00:00 00:00:00 Medical Branch Sex Ass[birth year] At [birth year] [facility] 00:00:00 00:00:00 Medical Branch Smoking Status Start Date Stop Date Source Never smoker [facility] Dow Medications Ordered Filled Start Stop Current Ordering Indication Dosage Frequency Signature Comments Components Source Medication Medication Date Date Medication? Clinician (SIG) Name Name predniSONE 2020-0 Yes 5mg Take 5 mg Un yasmani 5 mg tablet 2-24 by mouth ity of 18:51: daily. [place] 16 [facility] Branch mycophenola 2020-0 Yes 500mg Take 500 [...] 2-24 by mouth ity of 18:51: daily. [address] Branch mycophenola 2020-0 Yes 500mg Take 500 U nivers te mofetil 2-24 mg by ity of (CELLCEPT[place] 18[place] 16 (two) Medical tablet times Branch daily. carvedilol 2020-0 Yes 12.5mg Take 12.5 Univers 12.5 mg 2-24 mg by ity of tablet 18:51: mouth 2 [place] 16 (two) Medical times Branch daily with meals. predniSONE 2020-0 Yes 5mg Take 5 mg Un yasmani 5 mg tablet 2-24 by mouth ity of 18:51: daily. [address] Branch mycophenola 2020-0 Yes 500mg Take 500 U nivers te mofetil 2-24 mg by ity of (CELLCEPT) 18:51: [place] 16 (two) Medical tablet times Branch daily. carvedilol 2020-0 Yes 12.5mg Take 12.5 Univers 12.5 mg 2-24 mg by ity of tablet 18:51: mouth 2 [place] 16 (two) Medical times Branch daily with meals. predniSONE 2020-0 Yes 5mg Take 5 mg Un yasmani 5 mg tablet 2-24 by mouth ity of 18:51: daily. [address] mycophenola 2020-0 Yes 500mg Take 500 U nivers te mofetil 2-24 mg by ity of (CELLCEPT) 18:51: [place] 500 mg 16 (two) Medical tablet times Branch daily. carvedilol 2020-0 Yes 12.5mg Take 12.5 Univers 12.5 mg 2-24 mg by ity of tablet 18:51: mouth 2 [place] 16 (two) Medical times Branch daily with meals. hydrOXYzine 2020-0 Yes [id number] 25mg Take 1 Univers 25 mg 2-24 tablet by ity of tablet 00:00: mouth [place] 00 every 6 Medical (six) Branch hours as needed for Itching. hydrOXYzine 2020-0 Yes [id number] 25mg Take 1 [facility] 25 mg 2-24 tablet by ity of tablet 00:00: mouth [place] 00 every 6 Medical (six) Branch hours as needed for Itching. hydrOXYzine 2020-0 Yes [id number] 25mg Take 1 [facility] 25 mg 2-24 tablet by ity of tablet 00:00: mouth 00 every 6 Medical (six) Branch hours as needed for Itching. hydrOXYzine Yes [id number] 25mg Take 1 Univers 25 mg 2-24 [...] 00 Medical mcg (28) Branch per tablet Vital Signs Vital Name Observation Time Observation Value Comments Source HEIGHT 2022-04-04 11:57:00 160 cm WEIGHT 2022-04-03 18:30:00 93.6 kg HEIGHT 2022-04-04 11:57:00 160 cm WEIGHT 2022-04-03 18:30:00 93.6 kg Procedures Procedure Date / Time Performed Performing Clinician [facility] e PHYSICIAN ORDERS 2021-11-14 05:01:00 Doctor Unassigned, No [facility] [place] [facility] PHYSICIAN ORDERS 2021-09-02 06:01:00 Doctor Unassigned, No [facility] [place] [facility] Encounters Start End Encounter Admission Attending Care Care Encounter Source Date/Time Date/Time Type Type Clinicians Facility Department ID 2022-04-01 2022-04-09 Inpatient UR NIKA MENDOZA General Med [id number] [facility] 19:29:00 15:16:00 DAI 2022-01-12 2022-01-12 Outpatient SOPHIE BLANCO [id number] Sophie 15:45:00 15:45:00 TOBI dinh 2021-11-14 2021-11-14 [place] Harjit, Adc Lab Main [facility] 1.2.8 40.114 [id number] Univers 16:15:00 16:30:00 Visit Tem[place]ohanna Felicita ANDERSON [id number] ity [facility] [id number] [place] PROF[place] [phone] [place] dical NAL [address] [place] [address] 2021-11-14 2021-11-14 [facility] [id number] Univers 16:15:00 16:15:00 FELICITA [id number] ity of [facility] 2021-11-14 2021-11-14 [facility] [id number] Univers 16:15:00 16:15:00 FELICITA it[facility] 2021-11-14 2021-11-14 Orders Doctor KEY [id number] [id number] Univers 00:00:00 00:00:00 Only Unassigned, ZAN [id number] ity [facility] [id number] [place] [phone] [address] 2021-09-02 2021-09-02 [place] Harjit, Adc Lab Main [facility] 1.2.8 40.114 [id number] Univers 16:15:00 16:30:00 Visit Grace Joseph [id number] ity [facility] [id number] [phone] [place] dical NAL [address] [place] [address] 2021-09-02 2021-09-02 Outpatient [facility] [id number] Univers 16:15:00 16:15:00 [id number] it[facility] 2021-09-02 2021-09-02 [facility] [id number] Univers 16:15:00 16:15:00 GRACE it[facility] 2021-09-02 2021-09-02 Orders Doctor KEY [id number] [id number] Univers 00:00:00 00:00:00 Only Unassigned, ZAN [id number] ity [facility] [id number] [place] [phone] [address] 2021-04-04 2021-04-11 Inpatient JACK ROLLE [facility] [id number] [facility] 23:38:00 16:51:00 2021-04-03 2021-04-04 Inpatient Davey FELICIANO [facility] [id number] [facility] 21:43:00 23:00:00 HONORIO 2021-03-19 2021-03-19 Outpatient [facility] [id number] Univers 17:15:00 17:15:00 [id number] [facility] 2021-03-19 2021-03-19 Outpatient R OP[facility] [id number] Univers 17:15:00 17:15:00 [facility] 2021-01-22 2021-01-22 Outpatient [facility] [id number] Univers 12:45:00 12:45:00 [id number] [facility] 2021-01-22 2021-01-22 [facility] [id number] Univers 12:45:00 12:45:00 [facility] 2021-01-21 2021-01-21 Outpatient [facility] [id number] Univers 11:30:00 11:30:00 [id number] [facility] 2021-01-21 2021-01-21 [facility] [id number] Univers 11:30:00 11:30:00 [facility] 2020-02-07 2020-02-07 [place] Diya Lombardi [facility] 1.2.840.114 [id number] 17:26:43 17:41:43 Visit Lab Main Ryan [id number] [place] [id number] Krystle [phone] [address] 2020-02-07 2020-02-07 Outpatient [facility] [id number] Univers 17:00:00 [facility]:00:[id number]-07 2020-02-07 [facility] [id number] Univers 17:00:00 17:00:00 GRACE [facility] 2020-02-07 2020-02-07 Orders Doctor SHAHID 1.2.840.114 [id number] 00:00:00 00:00:00 Only Unassigned, ZAN [id number] [place] [id number] [id number] 2019-11-02 2019-11-02 [place] Harjit [facility] 1.2.840.114 [id number] 10:22:24 10:37:24 Visit Lab Main Ryan [id number] [place] [id number] Krystle [phone] [address] 2019-11-02 2019-11-02 Outpatient [facility] [id number] Univers 10:15:00 10:15:00 [id number] [facility] 2019-11-02 2019-11-02 [facility] [id number] Univers 10:15:00 10:15:00 [facility] 2019-11-02 2019-11-02 Orders Doctor SHAHID 1.2.840.114 [id number] 00:00:00 00:00:00 Only Unassigned, ZAN [id number] [place] [id number] 2019-10-16 2019-10-16 Outpatient [facility] [id number] Univers 18:30:00 18:30:00 [id number] [facility] 2019-10-16 2019-10-16 [facility] [id number] Univers 18:30:00 18:30:00 ATTENDING [facility] Results Test Description Test Time Test Comments Results Result Comments Source BASIC METABOLIC PANEL 2022-04-09 05:35:00 Test Item Value Reference Range Interpretation Comme nts SODIUM (BEAKER) (test 139 meq/L 136-145 code = 381) POTASSIUM (BEAKER) 3.6 meq/L 3.5-5.1 (test code = 379) CHLORIDE (BEAKER) (test 106 meq/L 98-107 code = 382) CO2 (BEAKER) (test code 24 meq/L 22-29 = 355) BLOOD UREA NITROGEN 29 mg/dL 7-21 H (BEAKER) (test code = 354) CREATININE (BEAKER) 2.55 mg/dL 0.57-1.25 H (test code = 358) GLUCOSE RANDOM (BEAKER) 91 mg/dL 70-105 (test code = 652) CALCIUM (BEAKER) (test 8.2 mg/dL 8.4-10.2 L code = 697) EGFR (BEAKER) (test 25 mL/min/1.73 sq In terpretation of eGFR values code = 1092) m Stage Descripti on Result G1 Normal or high >=90 G2 Mildly decreased 60-89 G3a Mildly to moderately 45-5 9 G3b Moderately to severely 30- 44 G4 Severly decreased 15-29 G5 Kidney failure <15Repo rted eGFR is based on the CK D-EPI 2020 equation that d oes not use a race coefficien tEstimated GFR is not as accurate as Creatinine Clearance in pr edicting glomerular filt ration rate. Estimated GFR i s not applicable for dialysis fauzia keith Breast Buffer ID - PIAYA [id number] 05:32:01 Test Item Value Reference Range Interpretation Comments PHOSPHORUS (BEAKER) (test code = 3.0 mg/dL 2.3-4.7 604) Breast Buffer ID - CINDY [id number] 05:32:00 Test Item Value Reference Range Interpretation Comments MAGNESIUM (BEAKER) (test code = 1.7 mg/dL 1.6-2.6 627) Breast Buffer ID - CINDY LCBC W/PLT COUNT & AUTO [id number] 11:56:12 Test Item Value Reference Range Interpretation Comments WHITE BLOOD CELL COUNT (BEAKER) 12.3 K/ L 3.5-10.5 H (test code = 775) RED BLOOD CELL COUNT (BEAKER) 3.12 M/ L 3.93-5.22 L (test code = 761) HEMOGLOBIN (BEAKER) (test code = 8.5 GM/DL 11.2-15.7 L 410) HEMATOCRIT (BEAKER) (test code = 25.8 % 34.1-44.9 L 411) MEAN CORPUSCULAR VOLUME (BEAKER) 82.7 fL 79.4-94.8 (test code = 753) MEAN CORPUSCULAR HEMOGLOBIN 27.2 pg 25.6-32.2 (BEAKER) (test code = 751) MEAN CORPUSCULAR HEMOGLOBIN CONC 32.9 GM/DL 32.2-35.5 (BEAKER) (test code = 752) RED CELL DISTRIBUTION WIDTH 15.2 % 11.7-14.4 H (BEAKER) (test code = 412) PLATELET COUNT (BEAKER) (test 177 K/CU MM 150-450 code = 756) MEAN PLATELET VOLUME (BEAKER) 10.3 fL 9.4-12.3 (test code = 754) NUCLEATED RED BLOOD CELLS 0 /100 WBC 0-0 (BEAKER) (test code = 413) NEUTROPHILS RELATIVE PERCENT 76 % (BEAKER) (test code = 429) LYMPHOCYTES RELATIVE PERCENT 12 % (BEAKER) (test code = 430) MONOCYTES RELATIVE PERCENT 7 % (BEAKER) (test code = 431) EOSINOPHILS RELATIVE PERCENT 1 % (BEAKER) (test code = 432) BASOPHILS RELATIVE PERCENT 0 % (BEAKER) (test code = 437) NEUTROPHILS ABSOLUTE COUNT 9.40 K/ L 1.56-6.13 H (BEAKER) (test code = 670) LYMPHOCYTES ABSOLUTE COUNT 1.45 K/ L 1.18-3.74 (BEAKER) (test code = 414) MONOCYTES ABSOLUTE COUNT (BEAKER) 0.86 K/ L 0.24-0.36 H (test code = 415) EOSINOPHILS ABSOLUTE COUNT 0.17 K/ L 0.04-0.36 (BEAKER) (test code = 416) BASOPHILS ABSOLUTE COUNT (BEAKER) 0.05 K/ L 0.01-0.08 (test code = 417) IMMATURE GRANULOCYTES-RELATIVE 3 % 0-1 H PERCENT (BEAKER) (test code = 2801) RAD, ABDOMEN/KUB, 1 VIEW [id number] 10:34:00Reason for exam:->to evaluate for obstructionJ[facility]OLD [facility] : 1990 Sex: FFINAL REPORT RAD, ABDOMEN/KUB, 1 VIEW AP CLINICAL INDICATION: to evaluate for obstruction COMPARISON: None TECHNIQUE: Frontal radiograph(s) of the abdomen. FINDINGS: The bowel gas pattern demonstrates mildly dilated small bowel loops in the left abdomen. Evaluation for free air is limitedby portable supine technique. Within these limitations, no free air is identified. IMPRESSION: Prominent air-filled small bowel loops, which may represent ileus. Signed: Claudy Burtonepdona VerifiedDate/Time: 04/08/2022 10:34:43 Reading Location: [facility] Radiology Reading Room Electronicallysigned by: CLAUDY BURTON MD on 04/08/2022 10:34 AMBASIC METABOLIC [id number] 06:01:36 Test Item Value Reference Range Interpretation Comments SODIUM (BEAKER) 140 meq/L 136-145 (test code = 381) POTASSIUM 3.3 meq/L 3.5-5.1 L (BEAKER) (test code = 379) CHLORIDE (BEAKER) 106 meq/L 98-107 (test code = 382) CO2 (BEAKER) 25 meq/L 22-29 (test code = 355) BLOOD UREA 27 mg/dL 7-21 H NITROGEN (BEAKER) (test code = 354) CREATININE 2.65 mg/dL 0.57-1.25 H (BEAKER) (test code = 358) GLUCOSE RANDOM 80 mg/dL 70-105 (BEAKER) (test code = 652) CALCIUM (BEAKER) 8.4 mg/dL 8.4-10.2 (test code = 697) EGFR (BEAKER) 24 Interpretatio n of eGFR (test code = mL/min/1.73 values Stage De scription 1092) sq m Result G1 Kamla l or high >=90 G2 Mildly decreased 60-89 G3a Mildl y to moderately 45-5 9 G3b Moderately to s everely 30-44 G4 Severl y decreased 15-29 G5 Kidney failure <15Reported eGF R is based on the CKD-EPI 2020 equation that d oes not use a race coefficientEsti mated GFR is not as accur ate as Creatinine Aniyah cbarales in predicting glom erular filtration rate . Estimated GFR is not appl icable for dialysis patien ts Breast Buffer ID - LAMINE MCBC W/PLT COUNT & AUTO [id number] 15:32:22 Test Item Value Reference Range Interpretation Comments WHITE BLOOD CELL COUNT (BEAKER) 15.0 K/ L 3.5-10.5 H (test code = 775) RED BLOOD CELL COUNT (BEAKER) 3.33 M/ L 3.93-5.22 L (test code = 761) HEMOGLOBIN (BEAKER) (test code = 9.0 GM/DL 11.2-15.7 L 410) HEMATOCRIT (BEAKER) (test code = 27.6 % 34.1-44.9 L 411) MEAN CORPUSCULAR VOLUME (BEAKER) 82.9 fL 79.4-94.8 (test code = 753) MEAN CORPUSCULAR HEMOGLOBIN 27.0 pg 25.6-32.2 (BEAKER) (test code = 751) MEAN CORPUSCULAR HEMOGLOBIN CONC 32.6 GM/DL 32.2-35.5 (BEAKER) (test code = 752) RED CELL DISTRIBUTION WIDTH 15.4 % 11.7-14.4 H (BEAKER) (test code = 412) PLATELET COUNT (BEAKER) (test 176 K/CU MM 150-450 code = 756) MEAN PLATELET VOLUME (BEAKER) 10.9 fL 9.4-12.3 (test code = 754) NUCLEATED RED BLOOD CELLS 0 /100 WBC 0-0 (BEAKER) (test code = 413) NEUTROPHILS RELATIVE PERCENT 83 % (BEAKER) (test code = 429) LYMPHOCYTES RELATIVE PERCENT 6 % (BEAKER) (test code = 430) MONOCYTES RELATIVE PERCENT 6 % (BEAKER) (test code = 431) EOSINOPHILS RELATIVE PERCENT 1 % (BEAKER) (test code = 432) BASOPHILS RELATIVE PERCENT 1 % (BEAKER) (test code = 437) NEUTROPHILS ABSOLUTE COUNT 12.42 K/ L 1.56-6.13 H (BEAKER) (test code = 670) LYMPHOCYTES ABSOLUTE COUNT 0.95 K/ L 1.18-3.74 L (BEAKER) (test code = 414) MONOCYTES ABSOLUTE COUNT (BEAKER) 0.91 K/ L 0.24-0.36 H (test code = 415) EOSINOPHILS ABSOLUTE COUNT 0.20 K/ L 0.04-0.36 (BEAKER) (test code = 416) BASOPHILS ABSOLUTE COUNT (BEAKER) 0.08 K/ L 0.01-0.08 (test code = 417) IMMATURE GRANULOCYTES-RELATIVE 3 % 0-1 H PERCENT (BEAKER) (test code = 2801) SARS-COV2/RT-PCR ([facility])2022-04-07 14:36:23 Test Item Value Reference Range Interpretation Comments SARS-COV2/RT-PCR Negative Negative The SARS-Co V-2 target (test code = nucleic acids a re not [id number]) detected in thi s specimen. Negative result s do not preclude SARS-C oV-2 infection and s hould not be used as the tenzin e basis for patient managem ent decisions. Nega tive results must be combine d with clinical observ ations, patient history , and epidemiological information. A false negativ e result may occur if a spec imen is improperly kirill ected, transported or handled. This SARS CoV-2 test is a rapid, real-time RT-PC R test intended for th e qualitative detection of nu cleic acid from SARS-CoV-2 in a nasopharyngeal swab specimen collected from individuals suspected of CO VID-19 by their healthcar e provider. This test has been authorized by FDA under an EUA for use by authorized laboratories. This test is only authorized for the duration of the declaration that circumstances exist justifying the authorization of emergency use of in vitro diagnostic tests for detection and/or diagnosis of COVID-19 under Section 564(b)(1) of the Federal Food, Drug and Cosmetic Act, 21 U.S.C. 360bbb-3(b)(1), unless the authorization is terminated or revoked sooner. Fact Sheet for Healthcare Providers: https://www.cepheid.co m/Documents/Xpert%20Xpress%20SARS%20CoV-2/Fact%20Sheets/302-8842%18JGPB-EAP-5%20 HEALTHCARE%20PROVIDERS%20FACT%20SHEET.pdf Fact Sheet for Healthcare Patients: https://www.Exhibia.JoKno/Documents/Xpert%20Xp ress%20SARS%20CoV-2/Fact%20Sheets/3023804%10NLTA-NJP-7%20PATIENT%20FACT%20SHEET .pdfBLOOD [id number] 06:00:37 Test Item Value Reference Range Interpretation Comments CULTURE (BEAKER) (test No growth in 5 days code = 1095) The specimen volume collected for this blood culture was below the optimum (10 mL per bottle or 20 mL total). Use of lower volumes may adversely affect recovery and/or detection times of some organisms.VANCOMYCIN LEVEL, RANDOM 2022-04-07 05:31:01 Test Item Value Reference Range Interpretation Comments VANCOMYCIN RANDOM (BEAKER) (test 16.9 ug/mL code = 523) Reference Range: No NormalsOperator ID - PIAYA LBASIC METABOLIC [id number] 07:02:47 Test Item Value Reference Range Interpretation Comments SODIUM (BEAKER) 138 meq/L 136-145 (test code = 381) POTASSIUM 3.3 meq/L 3.5-5.1 L (BEAKER) (test code = 379) CHLORIDE (BEAKER) 105 meq/L 98-107 (test code = 382) CO2 (BEAKER) 25 meq/L 22-29 (test code = 355) BLOOD UREA 19 mg/dL 7-21 NITROGEN (BEAKER) (test code = 354) CREATININE 2.28 mg/dL 0.57-1.25 H (BEAKER) (test code = 358) GLUCOSE RANDOM 83 mg/dL 70-105 (BEAKER) (test code = 652) CALCIUM (BEAKER) 8.9 mg/dL 8.4-10.2 (test code = 697) EGFR (BEAKER) 29 Interpretatio n of eGFR (test code = mL/min/1.73 values Stage De scription 1092) sq m Result G1 Kamla l or high >=90 G2 Mildly decreased 60-89 G3a Mildl y to moderately 45-5 9 G3b Moderately to s everely 30-44 G4 Severl y decreased 15-29 G5 Kidney failure <15Reported eGF R is based on the CKD-EPI 2020 equation that d oes not use a race coefficientEsti mated GFR is not as accur ate as Creatinine Aniyah cabrales in predicting glom erular filtration rate . Estimated GFR is not appl icable for dialysis patien ts Breast Buffer ID - CINDY [id number] 07:01:34 Test Item Value Reference Range Interpretation Comments PHOSPHORUS (BEAKER) (test code = 2.7 mg/dL 2.3-4.7 604) Breast Buffer ID - CINDY [id number] 07:01:33 Test Item Value Reference Range Interpretation Comments MAGNESIUM (BEAKER) (test code = 1.5 mg/dL 1.6-2.6 L 627) Breast Buffer ID - CINDY LVANCOMYCIN LEVEL, [id number] 05:58:26 Test Item Value Reference Range Interpretation Comments VANCOMYCIN RANDOM (BEAKER) (test 22.5 ug/mL code = 523) Reference Range: No NormalsOperator ID - CINDY LCBC W/PLT COUNT & AUTO [id number] 05:05:30 Test Item Value Reference Range Interpretation Comments WHITE BLOOD CELL COUNT (BEAKER) 11.9 K/ L 3.5-10.5 H (test code = 775) RED BLOOD CELL COUNT (BEAKER) 2.97 M/ L 3.93-5.22 L (test code = 761) HEMOGLOBIN (BEAKER) (test code = 8.2 GM/DL 11.2-15.7 L 410) HEMATOCRIT (BEAKER) (test code = 24.7 % 34.1-44.9 L 411) MEAN CORPUSCULAR VOLUME (BEAKER) 83.2 fL 79.4-94.8 (test code = 753) MEAN CORPUSCULAR HEMOGLOBIN 27.6 pg 25.6-32.2 (BEAKER) (test code = 751) MEAN CORPUSCULAR HEMOGLOBIN CONC 33.2 GM/DL 32.2-35.5 (BEAKER) (test code = 752) RED CELL DISTRIBUTION WIDTH 15.0 % 11.7-14.4 H (BEAKER) (test code = 412) PLATELET COUNT (BEAKER) (test 129 K/CU MM 150-450 L code = 756) MEAN PLATELET VOLUME (BEAKER) 13.0 fL 9.4-12.3 H (test code = 754) NUCLEATED RED BLOOD CELLS 0 /100 WBC 0-0 (BEAKER) (test code = 413) NEUTROPHILS RELATIVE PERCENT 81 % (BEAKER) (test code = 429) LYMPHOCYTES RELATIVE PERCENT 8 % (BEAKER) (test code = 430) MONOCYTES RELATIVE PERCENT 6 % (BEAKER) (test code = 431) EOSINOPHILS RELATIVE PERCENT 0 % (BEAKER) (test code = 432) BASOPHILS RELATIVE PERCENT 0 % (BEAKER) (test code = 437) NEUTROPHILS ABSOLUTE COUNT 9.70 K/ L 1.56-6.13 H (BEAKER) (test code = 670) LYMPHOCYTES ABSOLUTE COUNT 0.99 K/ L 1.18-3.74 L (BEAKER) (test code = 414) MONOCYTES ABSOLUTE COUNT (BEAKER) 0.72 K/ L 0.24-0.36 H (test code = 415) EOSINOPHILS ABSOLUTE COUNT 0.03 K/ L 0.04-0.36 L (BEAKER) (test code = 416) BASOPHILS ABSOLUTE COUNT (BEAKER) 0.05 K/ L 0.01-0.08 (test code = 417) IMMATURE GRANULOCYTES-RELATIVE 4 % 0-1 H PERCENT (BEAKER) (test code = 2801) CT, [id number] 13:50:00Unlisted Reason for Exam - Click Yes and Enter Reason Below->YesUnlisted Reason for Exam->stoma evaluationIs this for enterography?->NoWill this procedure require oral contrast?->Yes [facility] : 1990 Sex: FFINAL REPORT EXAMINATION: CT, ABDOMEN \T\ PELVIS, WITHOUT IV CONTRAST. INDICATION: 32-year-old female with stoma evaluation. COMPARISON: None. TECHNIQUE:Helical CT imaging of the abdomen and pelvis was performed from the diaphragms to the pubic symphysis after the administration of oral contrast material. Multiplanar reconstructions were created by a technologist. One or more of the following dose reduction techniques were used:*Automated exposure control*Adjustment of the mA and/ or kV according to patient size*Use of iterative reconstruction technique Total DLP (mGy-cm): 1001.1Intravenous contrast: None DICOM format image data are available to non-affiliated external healthcare facilities or entities on a secure, media free, reciprocally searchable basis with patient authorization for at least a 12 month period after the study. FINDINGS: LOWER CHEST: Mild cardiomegaly. Lung bases are clear of consolidation. Trace bilateral pleural effusions. LIVER: Liver is of normal size, morphology, and attenuation. BILIARY SYSTEM: Gallbladder contains multiple gallstones. No evidence of intrahepatic or extrahepatic biliary dilation. SPLEEN: Spleen is of normal size. PANCREAS: Pancreas is of normal morphology. ADRENALS: No focal adrenal lesions. URINARY SYSTEM: Kidneys are grossly symmetric. No hydronephrosis or hydroureter. Bladder is unremarkable. REPRODUCTIVE SYSTEM: An IUD is noted. GASTROINTESTINAL SYSTEM: Stomach is unremarkable. Small bowel is normal in caliber. 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 VASCULAR: Abdominal aorta is of normal course and caliber. No significant calcified atherosclerotic disease. LYMPHATICS: No pathologic lymphadenopathy. PERITONEUM: Trace interloop fluid is noted in the left lower quadrant of the abdomen.A 4.1 x 2.2 x 3.8 cm pocket of fluid is noted in the left upper quadrant (axial image 32). SOFT TISSU ES/ BONES: Anasarca. Trace fluid is noted in the midline surgical wound. No significant degenerativechanges of the visualized spine. No aggressive osseous lesions. IMPRESSION:1.Postsurgical changes status post partial colectomy with left lower quadrant colostomy.2.A small fluid collection is identified in the left upper quadrant of the abdomen.3.Cholelithiasis.4.Trace ascites and anasarca.5.Incidental note of trace bilateral pleural effusions. Signed: Dai Monique MDReport Verified Date/Time: 04/05/2022 13:50:23 Reading Location: [facility] [id number] Ortho Consult Reading Room BLOOD [id number] 10:35:02 Test Item Value Reference Range Interpretation Comments CULTURE A From Aerobic An d (BEAKER) (test Anaerobic Bot tles code = 1095) Coagulase negat iron Staphylococcus GRAM STAIN From aerobic and RESULT (BEAKER) anaerobic (test code = bottles: gram 1123) positive cocci in clusters The specimen volume collected for this blood culture was below the optimum (10 mL per bottle or 20 mL total). Use of lower volumes may adversely affect recovery and/or detection times of some organisms.VANCOMYCIN LEVEL, RANDOM 2022-04-05 09:11:53 Test Item Value Reference Range Interpretation Comments VANCOMYCIN RANDOM (BEAKER) (test 30.0 ug/mL code = 523) Reference Range: No NormalsOperator ID - PIAYA LBASIC METABOLIC [id number] 07:02:40 Test Item Value Reference Range Interpretation Comments SODIUM (BEAKER) 140 meq/L 136-145 (test code = 381) POTASSIUM 3.5 meq/L 3.5-5.1 (BEAKER) (test code = 379) CHLORIDE (BEAKER) 106 meq/L 98-107 (test code = 382) CO2 (BEAKER) 25 meq/L 22-29 (test code = 355) BLOOD UREA 15 mg/dL 7-21 NITROGEN (BEAKER) (test code = 354) CREATININE 2.04 mg/dL 0.57-1.25 H (BEAKER) (test code = 358) GLUCOSE RANDOM 96 mg/dL 70-105 (BEAKER) (test code = 652) CALCIUM (BEAKER) 8.5 mg/dL 8.4-10.2 (test code = 697) EGFR (BEAKER) 33 Interpretatio n of eGFR (test code = mL/min/1.73 values Stage De scription 1092) sq m Result G1 Kamla l or high >=90 G2 Mildly decreased 60-89 G3a Mildl y to moderately 45-5 9 G3b Moderately to s everely 30-44 G4 Severl y decreased 15-29 G5 Kidney failure <15Reported eGF R is based on the CKD-EPI 2020 equation that d oes not use a race coefficientEsti mated GFR is not as accur ate as Creatinine Aniyah cabrales in predicting glom erular filtration rate . Estimated GFR is not appl icable for dialysis patien ts Breast Buffer ID - PIAYA LPREGNANCY SCREEN, [id number] 05:11:38 Test Item Value Reference Range Interpretation Comments TEST URINE (BEAKER) (test Negative Negative code = 583) CALCIUM, [id number] 05:06:05 Test Item Value Reference Range Interpretation Comments CALCIUM IONIZED (BEAKER) (test 1.17 mmol/L 1.12-1.27 code = 698) PH, BLOOD (BEAKER) (test code = 7.42 1810) COMPREHENSIVE METABOLIC [id number] 06:05:55 Test Item Value Reference Range Interpretation Comments TOTAL PROTEIN 4.6 gm/dL 6.0-8.3 L (BEAKER) (test code = 770) ALBUMIN (BEAKER) 2.4 g/dL 3.5-5.0 L (test code = 1145) ALKALINE 96 U/L 40-150 PHOSPHATASE (BEAKER) (test code = 346) BILIRUBIN TOTAL 0.4 mg/dL 0.2-1.2 (BEAKER) (test code = 377) SODIUM (BEAKER) 139 meq/L 136-145 (test code = 381) POTASSIUM (BEAKER) 3.6 meq/L 3.5-5.1 (test code = 379) CHLORIDE (BEAKER) 105 meq/L 98-107 (test code = 382) CO2 (BEAKER) (test 26 meq/L 22-29 code = 355) BLOOD UREA 10 mg/dL 7-21 NITROGEN (BEAKER) (test code = 354) CREATININE 1.46 mg/dL 0.57-1.25 H (BEAKER) (test code = 358) GLUCOSE RANDOM 82 mg/dL 70-105 (BEAKER) (test code = 652) CALCIUM (BEAKER) 8.0 mg/dL 8.4-10.2 L (test code = 697) AST (SGOT) 20 U/L 5-34 (BEAKER) (test code = 353) ALT (SGPT) 9 U/L 6-55 (BEAKER) (test code = 347) EGFR (BEAKER) 49 Interpretatio n of eGFR (test code = 1092) mL/min/1.[address] age Description sq m Result G1 Kamla l or high >=90 G2 Mildly decreased 60-89 G3a Mildl y to moderately 45-5 9 G3b Moderately to s everely 30-44 G4 Severl y decreased 15-29 G5 Kidney failure <15Reported eGF R is based on the CKD-EPI 2020 equation that d oes not use a race coefficientEsti mated GFR is not as accur ate as Creatinine Aniyah keron in predicting glom erular filtration rate . Estimated GFR is not appl icable for dialysis patien ts Breast Buffer ID - LAMINE [id number] 06:05:55 Test Item Value Reference Range Interpretation Comments MAGNESIUM (BEAKER) (test code = 1.6 mg/dL 1.6-2.6 627) Breast Buffer ID - LAMINE [id number] 06:05:55 Test Item Value Reference Range Interpretation Comments PHOSPHORUS (BEAKER) (test code = 1.8 mg/dL 2.3-4.7 L 604) Breast Buffer ID - LAMINE MCBC W/PLT COUNT & AUTO [id number] 05:23:04 Test Item Value Reference Range Interpretation Comments WHITE BLOOD CELL COUNT 13.4 K/ L 3.5-10.5 H (BEAKER) (test code = 775) RED BLOOD CELL COUNT 3.00 M/ L 3.93-5.22 L (BEAKER) (test code = 761) HEMOGLOBIN (BEAKER) 8.3 GM/DL 11.2-15.7 L (test code = 410) HEMATOCRIT (BEAKER) 25.4 % 34.1-44.9 L (test code = 411) MEAN CORPUSCULAR VOLUME 84.7 fL 79.4-94.8 (BEAKER) (test code = 753) MEAN CORPUSCULAR 27.7 pg 25.6-32.2 HEMOGLOBIN (BEAKER) (test code = 751) MEAN CORPUSCULAR 32.7 GM/DL 32.2-35.5 HEMOGLOBIN CONC (BEAKER) (test code = 752) RED CELL DISTRIBUTION 14.8 % 11.7-14.4 H WIDTH (BEAKER) (test code = 412) PLATELET COUNT (BEAKER) 94 K/CU MM 150-450 L (test code = 756) MEAN PLATELET VOLUME Unable to report (BEAKER) (test code = due to abnormal 754) platelet population. NUCLEATED RED BLOOD 0 /100 WBC 0-0 CELLS (BEAKER) (test code = 413) NEUTROPHILS RELATIVE 82 % PERCENT (BEAKER) (test code = 429) LYMPHOCYTES RELATIVE 8 % PERCENT (BEAKER) (test code = 430) MONOCYTES RELATIVE 7 % PERCENT (BEAKER) (test code = 431) EOSINOPHILS RELATIVE 0 % PERCENT (BEAKER) (test code = 432) BASOPHILS RELATIVE 0 % PERCENT (BEAKER) (test code = 437) NEUTROPHILS ABSOLUTE 10.94 K/ L 1.56-6.13 H COUNT (BEAKER) (test code = 670) LYMPHOCYTES ABSOLUTE 1.00 K/ L 1.18-3.74 L COUNT (BEAKER) (test code = 414) MONOCYTES ABSOLUTE COUNT 0.96 K/ L 0.24-0.36 H (BEAKER) (test code = 415) EOSINOPHILS ABSOLUTE 0.04 K/ L 0.04-0.36 COUNT (BEAKER) (test code = 416) BASOPHILS ABSOLUTE COUNT 0.04 K/ L 0.01-0.08 (BEAKER) (test code = 417) IMMATURE 3 % 0-1 H GRANULOCYTES-RELATIVE PERCENT (BEAKER) (test code = 2801) CALCIUM, [id number] 05:10:24 Test Item Value Reference Range Interpretation Comments CALCIUM IONIZED (BEAKER) (test 1.10 mmol/L 1.12-1.27 L code = 698) PH, BLOOD (BEAKER) (test code = 7.46 1810) [id number] 06:30:28 Test Item Value Reference Range Interpretation Comments FERRITIN (BEAKER) (test code = 1990.14 ng/mL 5.00-275.00 H 361) Breast Buffer ID - LAMINE MCOMPREHENSIVE METABOLIC [id number] 06:16:05 Test Item Value Reference Range Interpretation Comments TOTAL PROTEIN 4.6 gm/dL 6.0-8.3 L Specimen sligh tly (BEAKER) (test hemolyzed code = 770) ALBUMIN (BEAKER) 2.4 g/dL 3.5-5.0 L Specimen sl ightly (test code = 1145) hemolyzed ALKALINE 104 U/L 40-150 PHOSPHATASE (BEAKER) (test code = 346) BILIRUBIN TOTAL 0.4 mg/dL 0.2-1.2 Specimen sli ghtly (BEAKER) (test hemolyzed code = 377) SODIUM (BEAKER) 138 meq/L 136-145 (test code = 381) POTASSIUM (BEAKER) 3.7 meq/L 3.5-5.1 Specimen slightly (test code = 379) hemolyzed CHLORIDE (BEAKER) 105 meq/L 98-107 (test code = 382) CO2 (BEAKER) (test 26 meq/L 22-29 code = 355) BLOOD UREA 27 mg/dL 7-21 H NITROGEN (BEAKER) (test code = 354) CREATININE 2.77 mg/dL 0.57-1.25 H Specimen slight ly (BEAKER) (test hemolyzed code = 358) GLUCOSE RANDOM 78 mg/dL 70-105 (BEAKER) (test code = 652) CALCIUM (BEAKER) 8.1 mg/dL 8.4-10.2 L (test code = 697) AST (SGOT) 22 U/L 5-34 Specimen slight ly (BEAKER) (test hemolyzed code = 353) ALT (SGPT) 8 U/L 6-55 Specimen slight ly (BEAKER) (test hemolyzed code = 347) EGFR (BEAKER) 23 Interpretatio n of eGFR (test code = 1092) mL/min/1.[address] age Description sq m Result G1 Kamla l or high >=90 G2 Mildly decreased 60-89 G3a Mildl y to moderately 45-5 9 G3b Moderately to s everely 30-44 G4 Severl y decreased 15-29 G5 Kidney failure <15Reported eGF R is based on the CKD-EPI 2021 equation that d oes not use a race coefficientEsti mated GFR is not as accur ate as Creatinine Aniyah cabrales in predicting glom erular filtration rate . Estimated GFR is not appl icable for dialysis patien ts Breast Buffer ID - PIAYA [id number] 06:07:05 Test Item Value Reference Range Interpretation Comments MAGNESIUM (BEAKER) 1.7 mg/dL 1.6-2.6 Specimen slightly (test code = 627) hemolyzed Breast Buffer ID - PIAYA [id number] 06:07:05 Test Item Value Reference Range Interpretation Comments PHOSPHORUS (BEAKER) 2.7 mg/dL 2.3-4.7 Specimen slightly (test code = 604) hemolyzed Breast Buffer ID - CINDY TEJEDA, TIBC, % SAT. (WITHOUT FERRITIN)2022-04-03 06:02:22 Test Item Value Reference Range Interpretation Comments IRON (BEAKER) (test code = 547) 50.0 ug/dL 40.0-160.0 TOTAL IRON BINDING CAPACITY 123 ug/dL 250-450 L (BEAKER) (test code = 769) IRON % SATURATION (2) (BEAKER) 41 % 20-55 (test code = 2590) Breast Buffer ID - LAMINE MCBC W/PLT COUNT & AUTO [id number] 05:44:03 Test Item Value Reference Range Interpretation Comments WHITE BLOOD CELL COUNT 11.7 K/ L 3.5-10.5 H (BEAKER) (test code = 775) RED BLOOD CELL COUNT 2.85 M/ L 3.93-5.22 L (BEAKER) (test code = 761) HEMOGLOBIN (BEAKER) 7.8 GM/DL 11.2-15.7 L (test code = 410) HEMATOCRIT (BEAKER) 24.4 % 34.1-44.9 L (test code = 411) MEAN CORPUSCULAR VOLUME 85.6 fL 79.4-94.8 (BEAKER) (test code = 753) MEAN CORPUSCULAR 27.4 pg 25.6-32.2 HEMOGLOBIN (BEAKER) (test code = 751) MEAN CORPUSCULAR 32.0 GM/DL 32.2-35.5 L HEMOGLOBIN CONC (BEAKER) (test code = 752) RED CELL DISTRIBUTION 14.6 % 11.7-14.4 H WIDTH (BEAKER) (test code = 412) PLATELET COUNT (BEAKER) 80 K/CU MM 150-450 L (test code = 756) MEAN PLATELET VOLUME Unable to report due (BEAKER) (test code = to abn ormal Platelet 754) population distribution. NUCLEATED RED BLOOD 0 /100 WBC 0-0 CELLS (BEAKER) (test code = 413) NEUTROPHILS RELATIVE 80 % PERCENT (BEAKER) (test code = 429) LYMPHOCYTES RELATIVE 9 % PERCENT (BEAKER) (test code = 430) MONOCYTES RELATIVE 8 % PERCENT (BEAKER) (test code = 431) EOSINOPHILS RELATIVE 1 % PERCENT (BEAKER) (test code = 432) BASOPHILS RELATIVE 0 % PERCENT (BEAKER) (test code = 437) NEUTROPHILS ABSOLUTE 9.33 K/ L 1.56-6.13 H COUNT (BEAKER) (test code = 670) LYMPHOCYTES ABSOLUTE 1.01 K/ L 1.18-3.74 L COUNT (BEAKER) (test code = 414) MONOCYTES ABSOLUTE 0.91 K/ L 0.24-0.36 H COUNT (BEAKER) (test code = 415) EOSINOPHILS ABSOLUTE 0.12 K/ L 0.04-0.36 COUNT (BEAKER) (test code = 416) BASOPHILS ABSOLUTE 0.04 K/ L 0.01-0.08 COUNT (BEAKER) (test code = 417) IMMATURE 3 % 0-1 H GRANULOCYTES-RELATIVE PERCENT (BEAKER) (test code = 2801) RETICULOCYTE [id number] 05:41:57 Test Item Value Reference Range Interpretation Comments RETICULOCYTE COUNT PCT (BEAKER) (test 1.6 % 0.5-1.7 code = 575) Breast Buffer ID - 6000CALCIUM, [id number] 05:28:28 Test Item Value Reference Range Interpretation Comments CALCIUM IONIZED (BEAKER) (test 1.15 mmol/L 1.12-1.27 code = 698) PH, BLOOD (BEAKER) (test code = 7.38 1810) SARS-COV2/RT-PCR ([facility])2022-04-03 03:18:56 Test Item Value Reference Range Interpretation Comments SARS-COV2/RT-PCR Negative Negative The SARS-Co V-2 target (test code = nucleic acids a re not 4179413) detected in thi s specimen. Negative result s do not preclude SARS-C oV-2 infection and s hould not be used as the tenzin e basis for patient managem ent decisions. Nega tive results must be combine d with clinical observ ations, patient history , and epidemiological information. A false negativ e result may occur if a spec imen is improperly kirill ected, transported or handled. This SARS CoV-2 test is a rapid, real-time RT-PC R test intended for th e qualitative detection of nu cleic acid from SARS-CoV-2 in a nasopharyngeal swab specimen collected from individuals suspected of CO VID-19 by their healthcar e provider. This test has been authorized by FDA under an EUA for use by authorized laboratories. This test is only authorized for the duration of the declaration that circumstances exist justifying the authorization of emergency use of in vitro diagnostic tests for detection and/or diagnosis of COVID-19 under Section 564(b)(1) of the Federal Food, Drug and Cosmetic Act, 21 U.S.C. 360bbb-3(b)(1), unless the authorization is terminated or revoked sooner. Fact Sheet for Healthcare Providers: https://www.[employer] m/Documents/Xpert%20Xpress%20SARS%20CoV-2/Fact%20Sheets/302-3802%74HLUJ-ZFQ-6%20 HEALTHCARE%20PROVIDERS%20FACT%20SHEET.pdf Fact Sheet for Healthcare Patients: https://www.[employer]/Documents/Xpert%20Xp ress%20SARS%20CoV-2/Fact%20Sheets/302-3801%09RQXY-NNE-4%20PATIENT%20FACT%20SHEET .pdfBLOOD CULTURE IDENTIFICATION [id number] 02:40:30 Test Item Value Reference Interpretation Comments Range LISTERIA MONOCYTOGENES Not detected Not detected (test code = 2684174) STAPHYLOCOCCUS (test Detected Not detected A Coagula se negative code = 5469168) Staph specie s (CoNS)- methici llin resistantFirst- line therapy: Vancom ycin MecA DETECTED Possible contamination. The likelihood of pathogenicity i s increased if th e organism is observed in multiple blood cultures obtain ed from separate venipunctures. Reference Range : Not Detected STAPHYLOCOCCUS AUREUS Not detected Not detected (test code = 0289829) STREPTOCOCCUS (test code Not detected Not detected = 0077655) STREPTOCOCCUS AGALACTIAE Not detected Not detected (GROUP B) (test code = 0584729) STREPTOCOCCUS PNEUMONIAE Not detected Not detected (test code = 8347460) STREPTOCOCCUS PYOGENES Not detected Not detected (GROUP A) (test code = 0847995) ACINETOBACTER BAUMANNII Not detected Not detected (test code = 9675633) HAEMOPHILUS INFLUENZAE Not detected Not detected (test code = 7779690) NEISSERIA MENINGITIDIS Not detected Not detected (test code = 3218272) ENTEROBACTERIACEAE (test Not detected Not detected code = 6624085) ENTEROBACTER CLOACOE Not detected Not detected COMPLEX (test code = 7221829) KLEBSIELLA OXYTOCA (test Not detected Not detected code = 5154617) KLEBSIELLA PNEUMONIAE Not detected Not detected (test code = 1650) PROTEUS (test code = Not detected Not detected 1038688) SERRATIA MARCESCENS Not detected Not detected (test code = 2613071) JEWELS ALBICANS (test Not detected Not detected code = 2851259) JEWELS GLABRATA (test Not detected Not detected code = 6560414) JEWELS KRUSEI (test Not detected Not detected code = 7259601) JEWELS PARAPSILOSIS Not detected Not detected (test code = 7855512) JEWELS TROPICALIS (test Not detected Not detected code = 6021853) ESCHERICHIA COLI (test Not detected Not detected code = 7133233) METHICILLIN-RESISTANCE Detected Not detected A Note: Antimicrobial GENE (test code = resistance can 7192164) occur via multi ple mechanisms. A N ot Detected result for the Activation [employer] antimicrobial resistance gene assays does not indicate antimicrobial susceptibility. Subculturing is required for species identification and susceptibility testing of isolates. VANCOMYCIN-RESISTANCE GENE (test code = 4770659) CARBAPENEM-RESISTANCE GENE (test code = 1264304) ENTEROCOCCUS-BEAKER Not detected Not detected (test code = 4439260) PSEUDOMONAS Not detected Not detected AERUGINOSA-BEAKER (test code = 8361573) Other bacteria and resistance markers not targeted by this PCR panel cannot be excluded; therefore clinical correlation and follow up of serology, culture results, and other molecular studies is required. The results are not intended to be used as the sole means for clinical diagnosis or patient management decisions. This sample was tested at the [facility] using the [employer] Film[employer] Blood Culture ID Panel. It is FDA cleared and has been verified and approved by the [facility] for clinical use. This laboratory is CLIA-certified and College ofAmerican Pathologists (CAP)-accredited to perform high complexity testing.CBC W/PLT COUNT & AUTO [id number] 04:57:54 Test Item Value Reference Range Interpretation Comments WHITE BLOOD CELL COUNT 11.4 K/ L 3.5-10.5 H (BEAKER) (test code = 775) RED BLOOD CELL COUNT 3.00 M/ L 3.93-5.22 L (BEAKER) (test code = 761) HEMOGLOBIN (BEAKER) 8.5 GM/DL 11.2-15.7 L (test code = 410) HEMATOCRIT (BEAKER) 26.4 % 34.1-44.9 L (test code = 411) MEAN CORPUSCULAR VOLUME 88.0 fL 79.4-94.8 (BEAKER) (test code = 753) MEAN CORPUSCULAR 28.3 pg 25.6-32.2 HEMOGLOBIN (BEAKER) (test code = 751) MEAN CORPUSCULAR 32.2 GM/DL 32.2-35.5 HEMOGLOBIN CONC (BEAKER) (test code = 752) RED CELL DISTRIBUTION 14.8 % 11.7-14.4 H WIDTH (BEAKER) (test code = 412) PLATELET COUNT (BEAKER) 75 K/CU MM 150-450 L (test code = 756) MEAN PLATELET VOLUME Unable to report (BEAKER) (test code = due to abnormal 754) platelet population. NUCLEATED RED BLOOD 0 /100 WBC 0-0 CELLS (BEAKER) (test code = 413) NEUTROPHILS RELATIVE 80 % PERCENT (BEAKER) (test code = 429) LYMPHOCYTES RELATIVE 8 % PERCENT (BEAKER) (test code = 430) MONOCYTES RELATIVE 9 % PERCENT (BEAKER) (test code = 431) EOSINOPHILS RELATIVE 0 % PERCENT (BEAKER) (test code = 432) BASOPHILS RELATIVE 0 % PERCENT (BEAKER) (test code = 437) NEUTROPHILS ABSOLUTE 9.07 K/ L 1.56-6.13 H COUNT (BEAKER) (test code = 670) LYMPHOCYTES ABSOLUTE 0.96 K/ L 1.18-3.74 L COUNT (BEAKER) (test code = 414) MONOCYTES ABSOLUTE COUNT 0.98 K/ L 0.24-0.36 H (BEAKER) (test code = 415) EOSINOPHILS ABSOLUTE 0.04 K/ L 0.04-0.36 COUNT (BEAKER) (test code = 416) BASOPHILS ABSOLUTE COUNT 0.04 K/ L 0.01-0.08 (BEAKER) (test code = 417) IMMATURE 3 % 0-1 H GRANULOCYTES-RELATIVE PERCENT (BEAKER) (test code = 2801) BASIC METABOLIC [id number] 22:48:25 Test Item Value Reference Range Interpretation Comments SODIUM (BEAKER) 139 meq/L 136-145 (test code = 381) POTASSIUM 4.1 meq/L 3.5-5.1 Specimen slight ly (BEAKER) (test hemolyzed code = 379) CHLORIDE (BEAKER) 106 meq/L 98-107 (test code = 382) CO2 (BEAKER) 24 meq/L 22-29 (test code = 355) BLOOD UREA 20 mg/dL 7-21 NITROGEN (BEAKER) (test code = 354) CREATININE 2.17 mg/dL 0.57-1.25 H Specimen slight ly (BEAKER) (test hemolyzed code = 358) GLUCOSE RANDOM 74 mg/dL 70-105 (BEAKER) (test code = 652) CALCIUM (BEAKER) 8.2 mg/dL 8.4-10.2 L (test code = 697) EGFR (BEAKER) 30 Interpretatio n of eGFR (test code = mL/min/1.73 values Stage De scription 1092) sq m Result G1 Kamla l or high >=90 G2 Mildly decreased 60-89 G3a Mildl y to moderately 45-5 9 G3b Moderately to s everely 30-44 G4 Severl y decreased 15-29 G5 Kidney failure <15Reported eGF R is based on the CKD-EPI 2020 equation that d oes not use a race coefficientEsti mated GFR is not as accur ate as Creatinine Aniyah keron in predicting glom erular filtration rate . Estimated GFR is not appl icable for dialysis patien ts Breast Buffer ID - BSCBC (HEMOGRAM ONLY)2022-04-01 22:37:25 Test Item Value Reference Range Interpretation Comments WHITE BLOOD CELL COUNT (BEAKER) 12.5 K/ L 3.5-10.5 H (test code = 775) RED BLOOD CELL COUNT (BEAKER) 3.12 M/ L 3.93-5.22 L (test code = 761) HEMOGLOBIN (BEAKER) (test code = 8.6 GM/DL 11.2-15.7 L 410) HEMATOCRIT (BEAKER) (test code = 26.4 % 34.1-44.9 L 411) MEAN CORPUSCULAR VOLUME (BEAKER) 84.6 fL 79.4-94.8 (test code = 753) MEAN CORPUSCULAR HEMOGLOBIN 27.6 pg 25.6-32.2 (BEAKER) (test code = 751) MEAN CORPUSCULAR HEMOGLOBIN CONC 32.6 GM/DL 32.2-35.5 (BEAKER) (test code = 752) RED CELL DISTRIBUTION WIDTH 14.7 % 11.7-14.4 H (BEAKER) (test code = 412) PLATELET COUNT (BEAKER) (test code 77 K/CU MM 150-450 L = 756) MEAN PLATELET VOLUME (BEAKER) 10.7 fL 9.4-12.3 (test code = 754) NUCLEATED RED BLOOD CELLS (BEAKER) 0 /100 WBC 0-0 (test code = 413) HEPATITIS B SURFACE [id number] 04:32:33 Test Item Value Reference Range Interpretation Comments HEPATITIS B SURFACE ANTIBODY < mIU/mL <8.0 (BEAKER) (test code = 647) Breast Buffer ID - CINDY LHEPATITIS B CORE ANTIBODY, [id number] 04:31:31 Test Item Value Reference Range Interpretation Comments HEPATITIS B CORE IGM ANTIBODY Nonreactive Nonreactive (BEAKER) (test code = 645) Breast Buffer ID - ROSASHASHANK LHEPATITIS B SURFACE [id number] 14:48:11 Test Item Value Reference Range Interpretation Comments HEPATITIS B SURFACE ANTIBODY < mIU/mL <8.0 (BEAKER) (test code = 647) Breast Buffer ID - DBHEPATITIS B SURFACE [id number] 14:23:40 Test Item Value Reference Range Interpretation Comments HEPATITIS B SURFACE ANTIGEN (2) Nonreactive Nonreactive (BEAKER) (test code = 2585) Specimen is considered negative for HBsAg.HEPATITIS B CORE ANTIBODY, TOTAL 2022-03-10 14:23:40 Test Item Value Reference Range Interpretation Comments HEPATITIS B CORE TOTAL ANTIBODY Nonreactive Nonreactive (BEAKER) (test code = 497) Breast Buffer ID - DB
[2022-04-09 18:47] VITALS: BMI 34.9
[2022-04-09] MEDS ORDERED: LORAZEPAM 0.5 MG TABLET PO PRN (18:53)
[2022-04-09] MEDS ORDERED: CYCLOBENZAPRINE 10 MG TAB PO PRN (18:58)
[2022-04-09] MEDS: METOPROLOL TAR 50 MG TAB PO SCH (20:54)
[2022-04-09] MEDS: MIRTAZAPINE 15 MG TAB PO SCH (20:55)
[2022-04-09] MEDS ORDERED: FAMOTIDINE 20 MG TAB PO SCH (21:00)
[2022-04-10 06:14] LABS: Urine Bilirubin Negative (Negative); Urine Blood 2+ (Negative); Urine Clarity Clear (Clear); Urine Color Yellow (Yellow); Urine Glucose Negative (Negative); Urine Protein 3+ (Negative); Urine Urobilinogen 0.2 mg/dL (0.2-1.0)
[2022-04-10 06:17] LABS: Absolute Lymphocytes (CBC) 1.6 K/uL (0.7-4.9); Hematocrit 24.1 % (36.0-45.0); Lymphocytes % 14.5 % (15.3-44.8); MPV 7.8 fL (7.6-11.3); RBC Red Blood Cell Count 2.98 M/uL (3.86-4.86)
[2022-04-10 06:21] LABS: Urine Bacteria 20-50 /HPF (<20); Urine Mucus 1+ /HPF (None Seen)
[2022-04-10 06:35] LABS: Magnesium 1.9 mg/dL (1.8-2.4); Potassium 3.2 mmol/L (3.5-5.1); Prealbumin 14.1 mg/dL (20-40)
[2022-04-10 07:13] LABS: Blood Morphology Comment NOT SEEN (NOT SEEN); Platelet Estimate ADEQ; White Blood Cell Scan OK (OK)
[2022-04-10] MEDS: HYDROCODONE/APAP 7.5/325 MG TAB PO PRN ×2 (07:28→20:07)
[2022-04-10] MEDS ORDERED: BUMETANIDE 1 MG TABLET PO SCH (08:00)
[2022-04-10] MEDS: AMLODIPINE 10 MG TAB PO SCH ×2 (08:00→12:29)
[2022-04-10] MEDS ORDERED: LOSARTAN POTASSIUM 50 MG TABLET PO SCH (08:00)
[2022-04-10] MEDS: METOPROLOL TAR 50 MG TAB PO SCH ×3 (08:00→20:06)
[2022-04-10] MEDS: VITAMIN D 5,000 UNIT CAP PO SCH (08:07)
[2022-04-10] MEDS: predniSONE 10 MG TAB PO SCH (08:07)
--- NOTE | 2022-04-10 09:46 | P.RH.PN ---
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[employer] Goal: Mobility, Transfers, Self Care Vital Signs: Last Vital Signs Temp 97.2 F 04/10/22 07:41 Pulse 94 H 04/10/22 08:08 Resp 16 04/10/22 08:28 BP 144/88 H 04/10/22 08:08 Pulse Ox 95 04/10/22 08:28 Laboratory: Laboratory Last Values WBC 10.80 K/uL (4.3-10.9) 04/10/22 05:06 RBC 2.98 M/uL (3.86-4.86) L 04/10/22 05:06 Hgb 8.4 g/dL (12.0-15.0) L 04/10/22 05:06 Hct 24.1 % (36.0-45.0) L 04/10/22 05:06 MCV 81.0 fL (80-100) D 04/10/22 05:06 MCH 28.0 pg (27.0-35.0) 04/10/22 05:06 MCHC 34.6 g/dL (32.0-36.0) 04/10/22 05:06 RDW 16.4 % (12.1-15.2) H 04/10/22 05:06 Plt Count 199 K/uL (152-406) D 04/10/22 05:06 MPV 7.8 fL (7.6-11.3) D 04/10/22 05:06 Neutrophils % 73.5 % (41.7-73.7) 04/10/22 05:06 Lymphocytes % 14.5 % (15.3-44.8) L 04/10/22 05:06 Monocytes % 9.9 % (3.3-12.3) 04/10/22 05:06 Eosinophils % 1.3 % (0-4.4) 04/10/22 05:06 Basophils % 0.8 % (0-1.3) 04/10/22 05:06 Absolute Neutrophils 7.9 K/uL (1.8-8.0) 04/10/22 05:06 Absolute Lymphocytes 1.6 K/uL (0.7-4.9) 04/10/22 05:06 Absolute Monocytes 1.1 K/uL (0.1-1.3) 04/10/22 05:06 Absolute Eosinophils 0.1 K/uL (0-0.5) 04/10/22 05:06 Absolute Basophils 0.1 K/uL (0-0.5) 04/10/22 05:06 Platelet Estimate Adeq 04/10/22 05:06 Morphology Comment Not seen (NOT SEEN) 04/10/22 05:06 Sodium 142 mmol/L (136-145) 04/10/22 05:06 Potassium 3.2 mmol/L (3.5-5.1) L 04/10/22 05:06 Chloride 111 mmol/L (98-107) H 04/10/22 05:06 Carbon Dioxide 27 mmol/L (21-32) 04/10/22 05:06 Anion Gap 7.2 mEq/L (5.0-15.0) 04/10/22 05:06 BUN 32 mg/dL (7-18) H 04/10/22 05:06 Creatinine 2.73 mg/dL (0.55-1.3) H 04/10/22 05:06 Est GFR (CKD-EPI) 23 ml/min (=/>90) L 04/10/22 05:06 Glucose 101 mg/dL (74-106) 04/10/22 05:06 Calcium 7.8 mg/dL (8.5-10.1) L 04/10/22 05:06 Magnesium 1.9 mg/dL (1.8-2.4) 04/10/22 05:06 Albumin 2.0 g/dL (3.4-5.0) L 04/10/22 05:06 Prealbumin 14.1 mg/dL (20-40) L 04/10/22 05:06 Urine Color Yellow (Yellow) 04/10/22 06:10 Urine Clarity Clear (Clear) 04/10/22 06:10 Urine pH 7.0 (5.0-7.0) 04/10/22 06:10 Ur Specific [place] 1.020 (1.005-1.030) 04/10/22 06:10 Glucose (UA)(Auto) Negative (Negative) 04/10/22 06:10 Urine Ketones Negative (Negative) 04/10/22 06:10 Urine Blood 2+ (Negative) H 04/10/22 06:10 Urine Nitrite Negative (Negative) 04/10/22 06:10 Urine Bilirubin Negative (Negative) 04/10/22 06:10 Urine Urobilinogen 0.2 mg/dL (0.2-1.0) 04/10/22 06:10 Ur Leukocyte Esterase 1+ (Negative) H 04/10/22 06:10 Urine RBC 5-10 /HPF (None Seen) H 04/10/22 06:10 Urine Red Cell Clumps Cancelled 04/10/22 05:00 Urine WBC 5-10 /HPF (<5) 04/10/22 06:10 Urine WBC Clumps Cancelled 04/10/22 05:00 Ur Squamous Epith Cells <5 /HPF (None Seen) 04/10/22 06:10 U Non-Squamous Epi Cells Cancelled 04/10/22 05:00 Ur Transition Epith Cell Cancelled 04/10/22 05:00 Ur Renal Epithelial Cell Cancelled 04/10/22 05:00 Calcium Carbonate Cryst Cancelled 04/10/22 05:00 Calcium Oxalate Crystal Cancelled 04/10/22 05:00 Leucine Crystals Cancelled 04/10/22 05:00 Cystine Crystals Cancelled 04/10/22 05:00 Uric Acid Crystals Cancelled 04/10/22 05:00 Triple Phos Crystals Cancelled 04/10/22 05:00 Tyrosine Crystals Cancelled 04/10/22 05:00 Unidentified Crystals Cancelled 04/10/22 05:00 Amorphous Crystals Cancelled 04/10/22 05:00 Urine Bacteria 20-50 /HPF (<20) H 04/10/22 06:10 Hyaline Casts Cancelled 04/10/22 05:00 Granular Casts Cancelled 04/10/22 05:00 Waxy Casts Cancelled 04/10/22 05:00 RBC Casts Cancelled 04/10/22 05:00 WBC Casts Cancelled 04/10/22 05:00 Urine Mucus 1+ /HPF (None Seen) 04/10/22 06:10 Urine Trichomonas Cancelled 04/10/22 05:00 Ur Yeast w Hyphae Cancelled 04/10/22 05:00 Urine Yeast (Budding) Few /HPF (None Seen) H 04/10/22 06:10 Urine Sperm Cancelled 04/10/22 05:00 Ur Oval Fat Bodies Cancelled 04/10/22 05:00 Urine Total Protein 3+ (Negative) H 04/10/22 06:10 Urine Ascorbic Acid Cancelled 04/10/22 05:00 Urine Fat Cancelled 04/10/22 05:00 SARS-CoV-2 Rap RNA(RT-PCR) Negative (NEGATIVE) 04/09/22 21:00 Smear Scan Ok (OK) 04/10/22 05:06 Weight: 197 lb Wound Present: No Closed Surgical Incision Present: Yes Physician Update: Labs were reviewed. She requires a lift and slinding board for transfers at [facility]. She is being evaluated by physical and occupational therapy. Summary: Patient's care plan and halfway goals have been reviewed and revised as necessary. Please see the Rehabilitation Signature page for all necessary signatures.
[2022-04-10] MEDS ORDERED: POTASSIUM CL SA 10 MEQ TAB PO ONE (10:47)
--- NOTE | 2022-04-10 14:34 | R.HP ---
HISTORY AND PHYSICAL FACILITY: [facility] ENCOUNTER DATE AND TIME: 04/10/2022 14:24 (CDT) MR#: [id number] NAME BRIANNA NIETO ADDRESS: [address] [place] [address]: [place]IP [id number] PHONE: DATE OF : 1990 AGE: 32 SSN# [id number] GENDER: Female DEXTERITY Unknown dexterity MARITAL STATUS Single (Never ) Unknown race PRE-HOSPITAL LIVING SETTING 01 - Home (private home/apt. board/care, assisted living, chcf, transitional living) PRE-HOSPITAL LIVING WITH Family/Relatives ENCOUNTER PHYSICIAN: Dr. Viet Brown M.D. REFERRING DOCTOR: Deep Rodas DATE OF ADMISSION: 04/09/2022 16:39 (CDT) REFERRING FACILITY [facility] HOME TYPE AND DETAILS: Type of home: single family house # of levels in the residence: 1 # of steps within the residence: 0 # of steps to enter the residence: 0 ONSET DATE: 02/16/2022 PRIMARY DIAGNOSIS-RELATED SURGERIES: Exploratory Laparotomy Mobilization of splenic flexure Left colectomy End colostomy with Rangel's pouch Exploration of Wound Evacuation of Hematoma SECONDARY/COMORBID DIAGNOSES (TIERED): - Tier 3 Acute kidney failure, unspecified (N17.9) Sepsis, unspecified organism (A41.9) - Non-Tiered Acidosis (E87.2) Systemic lupus erythematosus, unspecified (M32.9) 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 is a 32 yo female of unknown race. On 02/16/2022 she was admitted to [facility] with diagnosis K57.20 Perforated Diverticular disease. Her impairment category is Medically Complex Conditions 17 - Infections (17.1). Pre-morbidly, Pt. was independent/mod-I in Locomotion and Self-Care; and she had good Balance, Transf ers Control, Self-Care, and Endurance. Currently, she has deficits of Locomotion, Balance, Transfers Control, Self-Care, and Endurance. Pt. is now referred to [facility] for acute in-patient rehabilitation in order to maximize patient's functional independence in activities of daily living, strength, ROM, and mobi lity. Patient has realistic goal of being discharged at assistance level 6-Tiffany to reside at Home with Fam fermin/Relatives. 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) Hypertensive chronic kidney disease with stage 1 through stage 4 chronic kidney disease, or unspecifi ed chronic kidney disease (I12.9) Other disorders of phosphorus metabolism (E83.39) Sepsis, unspecified organism (A41.9) Systemic lupus erythematosus, unspecified (M32.9) Unspecified severe protein-calorie malnutrition (E43) SOCIAL HISTORY: - Home Living Family/Relatives REVIEW OF SYSTEMS: - Gen No Chills Fatigue No Fever - Eyes No Double Vision No itchiness - ENMT No Difficulty Swallowing - CVS No Chest Discomfort No Chest Pain Fatigue No Weight Gain - Resp No Cough No Shortness of Breath - GI Continent No Abdominal Pain No Constipation No Diarrhea - Continent No Kidney Pain No Painful Urination Rivera cath is in place. - MSK No Joint Pain Muscle Cramps No Stiffness - Skin No Itching No Rash No Suspicious Lesions - Neuro No Coordination Difficulty No Difficulty with Concentration No Memory Loss No Seizures Weakness - Psych No Anxiety No Depression No HIV Exposure No Persistent Infections No Seasonal Allergies - Endo No Cold/Heat Intolerance No Excessive Hunger No Excessive Thirst No Excessive Urination PHYSICAL EXAM - Gen Alert and awake Lying in bed No apparent distress Oriented to: person, time, and place - Skin No skin breakdown. Normacephalic - Eyes No abnormalities - ENMT No abnormalities - Neck No abnormalities - CVS RRR - Chest No abnormalities - Abd colostomy in place - GI Non distended Deferred - Rivera catheter - Ext Mild bilateral lower extremity edema. - MSK 4/5 weakness in both lower extremities. - Neuro No focal deficits - Psych Mild depression. VITAL SIGNS Temperature: 97.2 F SBP/DBP: 144/88 Pulse: 94 Resp: 16 NURSING: - Shower allowing shower PRECAUTIONS: - Fall Precaution Bed alarm TABS alarm Wheel chair alarm - Bleeding Risk Lovenox - DVT Risk due to restricted mobility - Skin Breakdown Risk Routine Wound care due to restricted mobility ACTIVITIES OOB only with supervision QI SCORES: - Self-Care A. Eating 04-Supervision or touching assistance B. Oral hygiene 04-Supervision or touching assistance C. Toileting hygiene 01-Dependent E. Shower/bathe self 01-Dependent F. Upper body dressing 03-Partial/moderate assistance G. Lower body dressing 01-Dependent H. Putting on/taking off footwear 01-Dependent - Mobility A. Roll left and right 88-Not attempted due to medical condition or safety concerns B. Sit to lying 01-Dependent C. Lying to sitting on side of bed 01-Dependent D. Sit to stand 88-Not attempted due to medical condition or safety concerns E. Chair/[id number] transfer 88-Not attempted due to medical condition or safety concerns F. Toilet transfer 88-Not attempted due to medical condition or safety concerns G. Car transfer 88-Not attempted due to medical condition or safety concerns I. Walk 10 feet 88-Not attempted due to medical condition or safety concerns J. Walk 50 feet with two turns 88-Not attempted due to medical condition or safety concerns K. Walk 150 feet 88-Not attempted due to medical condition or safety concerns L. Walking 10 feet on uneven surfaces 88-Not attempted due to medical condition or safety concerns M. 1 step (curb) 88-Not attempted due to medical condition or safety concerns N. 4 steps 88-Not attempted due to medical condition or safety concerns O. 12 steps 88-Not attempted due to medical condition or safety concerns P. Picking up object 88-Not attempted due to medical condition or safety concerns R. Wheel 50 feet with two turns 09-Not applicable S. Wheel 150 feet 09-Not applicable - Bladder and Bowel Bladder continence 9-Not applicable Bowel continence 0-Always continent - Endurance Fair - Balance Poor - Safety Awareness Fair CURRENT FUNC. DEFICITS: Self-Care, Endurance, Balance, Safety Awareness, and Mobility MEDICATIONS: - Other See attached MAR (Medication Administration Record) ASSESSMENT: Pt. is a 32 yo female of unknown race.On 02/16/2022 she was admitted to [facility] with di agnosis K57.20 Perforated Diverticular disease.Her impairment category is Medically Complex Condition s 17 - Infections (17.1).Pre-morbidly, Pt. was independent/mod-I in Locomotion and Self-Care; and sh e had good Balance, Transfers Control, Self-Care, and Endurance.Currently, she has deficits of Locomo tion, Balance, Transfers Control, Self-Care, and Endurance.Pt. is now referred to [facility] for acute in-patient rehabilitation in order to maximize patient's functional independ ence in activities of daily living, strength, ROM, and mobility.- Rehab Goal Patient has realistic goal of being discharged at assistance level 6-iTffany to reside at Home with Fam fermin/Relatives. - Physical Therapy Gait dysfunction - to improve, our physical therapists will perform initial evaluation of pt's status upon admission and devise an individualized program for Gait Training, and Wheel Chair mobility Inability to transfer - to improve, our physical therapists will perform initial evaluation of pt's s tatus upon admission and devise an individualized program for Bed mobility Need for home safety evaluation - to improve, our physical therapists will perform initial evaluation of pt's status upon admission and devise an individualized program for Home Evaluation Need in caregiver upon discharge - to improve, our physical therapists will perform initial evaluatio n of pt's status upon admission and devise an individualized program for Caregiver Training New precaution - to improve, our physical therapists will perform initial evaluation of pt's status u marzena admission and devise an individualized program for Patient precaution education Edema - to improve, our physical therapists will perform initial evaluation of pt's status upon admi ssion and devise an individualized program for Elevation Training, and Lymphedema Therapy Poor balance - to improve, our physical therapists will perform initial evaluation of pt's status upo n admission and devise an individualized program for Balance Training Poor endurance - to improve, our physical therapists will perform initial evaluation of pt's status u marzena admission and devise an individualized program for Endurance Training Weakness - to improve, our physical therapists will perform initial evaluation of pt's status upon ad mission and devise an individualized program for Aquatic Therapy, Neuromuscular Reeducation, and Stre ngthening Achieving independence - to improve, our physical therapists will perform initial evaluation of pt's status upon admission and devise an individualized program for Community Reintegration Activities - Occupational Therapy ADL deficits - to improve, our occupation therapists will perform initial evaluation of pt's status u marzena admission and devise an individualized program for Bathing, Bed mobility, Community Reintegration , Cooking, Dressing, Eating, Fine Motor Skills, Grooming, Homemaking, Kitchen Mobility, Laundry, Luana ent Education, Safety Awareness, Splinting - Positioning, Transfers(Toilet, Tub, Shower), and Wheel C hair Management Need for career and transition teacher - to improve, our occupation therapists will perform initial evaluation of pt's s tatus upon admission and devise an individualized program for Caregiver Training Weakness - to improve, our occupation therapists will perform initial evaluation of pt's status upon admission and devise an individualized program for Aquatic Therapy, Balance, Endurance, UE ROM, and U E strengthening MEDICAL PLAN: - Diet Type Start Renal - Diet - Liquid Texture Start Regular - Tube Feed Start N/A - Bleeding Risk Lovenox - DVT Risk due to restricted mobility - Skin Breakdown Risk Routine Wound care due to restricted mobility - Fall Precaution Bed alarm TABS alarm Wheel chair alarm - Other See attached MAR (Medication Administration Record) - Diet - Solid Texture Regular - Shower shower DISCHARGE PLAN: - Estimated Length of Stay (days) 13. - Consensus on plan Discharge plan has been discussed with primary caregiver. Patient/Family is in agreement with the russell n. Primary caregiver is in agreement with the plan. - Patient/Family Goals Return home independently. - Potential barriers to discharge Any lines must be removed or patient/caregiver needs to be educated on line care. - Planned Living Setting Upon Discharge Home, to live with Family/Relatives. Transitional Living. SIGNATURE PANEL: (CDT)
--- NOTE | 2022-04-10 14:34 | PAPE ---
POST ADMISSION PHYSICIAN EVALUATION PATIENT: [facility] MR# [id number] REFERRING DOCTOR Deep Rodas EVALUATION DATE AND TIME 04/10/2022 14:32 (CDT) NAME BRIANNA NIETO DATE OF 1990 AGE 32 PHONE SSN# [id number] GENDER female EVALUATING PHYSICIAN Dr. Viet Brown M.D. 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) Anemia in chronic kidney disease (D63.1) Other disorders of phosphorus metabolism (E83.39) Hypertensive chronic kidney disease with stage 1 through stage 4 chronic kidney disease, or unspecifi ed chronic kidney disease (I12.9) Unspecified severe protein-calorie malnutrition (E43) - Tier 2 Enterocolitis due to Clostridium difficile (A04.7) - Tier 1 Dependence on renal dialysis (Z99.2) POST-ADMISSION FUNCTIONAL/MEDICAL STATUS: - Bladder Same accident frequency: 7-Ind - No accidents in the past 7 days - Bowel Same accident frequency: 7-Ind - No accidents in the past 7 days - Walking Same score based on distance walked: 0(N/A) - Wheelchair Same score based on distance traveled: 0(N/A) STATUS CHANGE EVALUATION: No change in Functional or Medical Status is identified compared with Pre-Admission screening. PATIENT NEEDS CLOSE MEDICAL SUPERVISION BY A REHABILITATION PHYSICIAN FOR: Coordination of Treatment Team Medical and Co-Morbidity Management Wound Care Bowel and Bladder Management Post-Op Complications Pain Management PATIENT REQUIRES 24X7 REHAB NURSING FOR MEDICAL AND FUNCTIONAL MGT. OF THE FOLLOWING DEFICITS: Patient requires 24x7 Rehabilitation Nursing for: Pain Issues, Identifying and preventing risk factor s, Monitoring and reporting current medical conditions, Assisting with ambulation and transfer, Devyn ting with all ADL-s, Teaching patients about disease process and medications, Family teaching, Provid ing safe environment, Bowel and Bladder Issues, Skin Integrity, and Medication Management PATIENT REQUIRES INTENSIVE, COORDINATED INTERDISCIPLINARY APPROACH TO REHAB: Patient needs Dietary and Nutrition Services for: Adequate Nutrition, Nutritional Supplements, and Nu tritional Education Patient needs Plan Rep and/or Case Management for: Discharge Planning, Arranging Home Equipmen t or Services, and Family Interventions LIST OF IDENTIFIED AND POTENTIAL PROBLEMS: Alteration in leisure activities Bladder, Incontinence Bowel, Incontinence Falls, Actual or Potential Infection, Actual or Potential Mobility Impaired Pain, Alteration in Comfort Self Care Deficit Skin Integrity, Actual or Potential Urinary Tract Infection (UTI), Actual or Potential RISK FOR COMPLICATIONS - DVT Active and Passive ROM exercises. Administer medications per MD order. Assist patient with frequent p osition changes. Elevate BLE. - Skin Breakdown Encourage ambulation as tolerated. Repositioning q 2 hours. Use of pillows or foam wedges while in be d. - Pain Anticipate the need for pain medication for optimal pain managment. Assess pt for pain and Administer prescribed pain medication as needed. Assist patient with frequent position changes at least every 2 hours. Educate patient on relaxation and deep breathing techniques. - Failure to Thrive Monitor pt labs. Nutrition to follow. - Bleeding Assess/ Monitor pt for injury. Maintain pt safety. - Stroke Assess/ Monitor and maintain patient pain level. Assess/ Monitor patient blood pressure. - Infection Assess for s/s of infection. Monitor pt response to antibiotics. Monitor pt v/s. - Cardiac Failure Assess/Monitor pt cardiac status. INTERVENTIONS - Acute Kidney Injury - Metabolic Acidosis Administer IV/Oral medications as indicated. Assess/Monitor pt labs. - Hypertension Assess/ Monitor patient B/P and treat with prescribed medications. Increase physical activity. - Severe Malnutrition Set appropriate short-term and long-term goals. Ascertain healthy body weight for age and height. Pro mote properpositioning. Provide good oral hygiene and dentition. schedule rest periods before meals . Eating small, frequent meals. - Anemia Monitor pt labs. Anticipate the need for transfusion given pt hx. Monitor for bleeding. Treat with IV medications and TANIA. - Jejunitis Administer IV abx, pain medications and steroids as prescribed. Monitor surgical site for bleeding/in fection. - Hyperkalemia/hyperphosatemia Pt on renal diet. HD. - Afib Assess/Monitor pt cardiac and respiratory status regularly. Monitor pt labs. Vitals will be monitored /assessed regularly. Administer prescribed anticoagulants and monitor for effectiveness. PATIENT COULD BE AT RISK FOR COMPLICATIONS FROM ADVERSE MEDICAL CONDITIONS DUE TO HIS/HER COMORBIDITI ES AND THE RIGORS OF THE INTENSIVE REHABILLITATION PROGRAM. METHODS OR INTERVENTIONS TO AVOID COMPLIC ATIONS INCLUDE: - Bleeding Assess lab values and manage abnormalities. Nursing to teach precautions for anti-coagulation therapy . Wound to be assessed every shift. - Infection Clinical staff to assess and manage the signs and symptoms of infection including fever, redness, war mth, etc. - Urinary Tract Infection - Falls Patient will be evaluated for Fall Precautions and will be placed on Fall Precautions as indicated pe r protocol. - Skin Breakdown Nursing will assess skin daily using assessment tool and will place on Skin Breakdown Precautions as indicated per protocol. - Pain Clinical staff may employ non-medication methods such as massage, distraction, decrease stimulus, etc . as needed. Clinical staff will assess patient's pain level every shift per protocol to assess and e nsure pain management effectiveness. Medications will be given and the pain level re-assessed. PRELIMINARY PLAN OF CARE: - Physical Therapy Patient needs Physical Therapy for a daily minimum of 1.5 hours at least 5 out of 7 days, to improve: Mobility, Strengthening, Transfers, Stretching, ROM, Endurance, Ability to manage stairs, Gait, and Balance. - Rehabilitation Nursing Patient requires 24x7 Rehabilitation Nursing for: Pain Issues, Identifying and preventing risk factor s, Monitoring and reporting current medical conditions, Assisting with ambulation and transfer, Devyn ting with all ADL-s, Teaching patients about disease process and medications, Family teaching, Provid ing safe environment, Bowel and Bladder Issues, Skin Integrity, and Medication Management. Patient needs Plan Rep and/or Case Management for: Discharge Planning, Arranging Home Equipmen t or Services, and Family Interventions. - Dietary and Nutrition Services Patient needs Dietary and Nutrition Services for: Adequate Nutrition, Nutritional Supplements, and Nu tritional Education. - Occupational Therapy Patient needs Occupational Therapy for a daily minimum of 1.5 hours at least 5 out of 7 days, to impr ove Activities of Daily Living, including: Eating, Grooming, Bathing, Dressing, Toileting, Toilet Tra nsfers, Community Reintegration, Higher functional activities, Adaptive Equipment, Splinting, Househo ld Tasks, and Other activities as determined. QI SCORES: - Self-Care A. Eating 04-Supervision or touching assistance B. Oral hygiene 04-Supervision or touching assistance C. Toileting hygiene 01-Dependent E. Shower/bathe self 01-Dependent F. Upper body dressing 03-Partial/moderate assistance G. Lower body dressing 01-Dependent H. Putting on/taking off footwear 01-Dependent - Mobility A. Roll left and right 88-Not attempted due to medical condition or safety concerns B. Sit to lying 01-Dependent C. Lying to sitting on side of bed 01-Dependent D. Sit to stand 88-Not attempted due to medical condition or safety concerns E. Chair/[id number] transfer 88-Not attempted due to medical condition or safety concerns F. Toilet transfer 88-Not attempted due to medical condition or safety concerns G. Car transfer 88-Not attempted due to medical condition or safety concerns I. Walk 10 feet 88-Not attempted due to medical condition or safety concerns J. Walk 50 feet with two turns 88-Not attempted due to medical condition or safety concerns K. Walk 150 feet 88-Not attempted due to medical condition or safety concerns L. Walking 10 feet on uneven surfaces 88-Not attempted due to medical condition or safety concerns M. 1 step (curb) 88-Not attempted due to medical condition or safety concerns N. 4 steps 88-Not attempted due to medical condition or safety concerns O. 12 steps 88-Not attempted due to medical condition or safety concerns P. Picking up object 88-Not attempted due to medical condition or safety concerns R. Wheel 50 feet with two turns 09-Not applicable S. Wheel 150 feet 09-Not applicable - Bladder and Bowel Bladder continence 9-Not applicable Bowel continence 0-Always continent - Endurance Fair - Balance Poor - Safety Awareness Fair POTENTIAL FUNCTIONAL GOALS FOR PATIENT TO ACHIEVE BY DISCHARGE: - Safety Precaution Patient will remain free from falls or injury at time of discharge. - Bed Mobility Patient will perform bed mobility at 4-Grace level of assistance. - Transfers Patient will complete transfers from bed to chair at 4-Grace level of assistance. - Mobility Patient will ambulate 150 ft with 4-Grace level of assistance with RW. PATIENT REHAB POTENTIAL Lucila NIETO is able and expected to receive 3 hours of individualized therapy daily on at least 5 of e very 7 days NilesKsenia NIETO's prognosis for significant practical improvement within a reasonable period of time appea rs Good Expected level of measurable improvement will be of a practical value to Lucila NIETO's functional capa city or adaptations to impairments Has a viable Discharge Plan Medically appropriate; condition is sufficiently stable to participate in intensive rehab program DISCHARGE PLAN: - Estimated Length of Stay (days) 13. - Consensus on plan Discharge plan has been discussed with primary caregiver. Patient/Family is in agreement with the russell n. Primary caregiver is in agreement with the plan. - Patient/Family Goals Return home independently. - Potential barriers to discharge Any lines must be removed or patient/caregiver needs to be educated on line care. - Planned Living Setting Upon Discharge Home, to live with Family/Relatives. Transitional Living. CONCLUSION ON REHABILITATION NECESSITY: I have evaluated patient's pre-admission functional status and, comparing it to the patient's post-ad mission functional status now, I conclude that the pre-admission assessment was accurate. Patient's c ondition on admission supports the medical necessity of admission to IRF. It is safe to proceed with patient's therapy program. SIGNATURE PANEL: (CDT)
[2022-04-10] MEDS: EPOETIN ALFA 10,000 UNIT/ML VIAL SQ SCH (16:53)
[2022-04-10] MEDS: POLYETHYL GLY 3350 17 GM/DOSE PO PRN (17:12)
--- NOTE | 2022-04-10 17:20 | P.PN ---
Date of Service: 04/10/22 Nephrology (S) Pt well known to us, pt admitted to rehab after being transferred from [facility], reports no further surgical revision of ostomy or wound done Vitals, medications, blood work and imaging reviewed in the chart. General: NAD, non tachypnec HEENT: Atraumatic, NC present Neck: Supple, Rt IJ TDC Respiratory: Normal respiratory effort, b/l air entry, reduced BS at the bases Cardiovascular: No tachy, reg Gastrointestinal: Surgical incision covered with dressing, colostomy present with stoma appearing retracted, ad distention improved Musculoskeletal: No clubbing, No contractures Ext: No sig LE edema Integumentary: No rashes, No cyanosis Neurological: Awake, alert, non encephalopathic, no tremors or myoclonus Labs reviewed in EMR Conclusions/Impression: Stage III ARF last month with presenting Cr level > 4 mg/dl in the setting of hypotension, anemia, sepsis, other likely leading to ATN 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 Metabolic profile acceptable, will suspend ARB and lower diuretic dose as prior generalized edema improved Underlying chronic HTN -BP stable currently, avoid relative hypotension Acute on chronic anemia related to surgical losses and chronic illnesses including lupus, CKD, other -Multiple transfusions last month, Hb remains < 10, scheduled TANIA has been ordered. SLE with lupus nephritis. Leukocytosis resolved. -Monitor. Remains off IS/MMF, had been on stress dose steroids, back down to maintenance PO prednisone. Abnormal findings in urine, unspecified -Unclear if related to kincaid or other, will d/c and f/u UCx. Martin Joseph MD, [facility]
[2022-04-10] MEDS: FAMOTIDINE 20 MG TAB PO SCH (20:07)
[2022-04-10] MEDS: MIRTAZAPINE 15 MG TAB PO SCH (20:07)
[2022-04-11 07:51] LABS: Phosphorus 2.7 mg/dL (2.5-4.9); Potassium 3.6 mmol/L (3.5-5.1)
[2022-04-11] MEDS: AMLODIPINE 10 MG TAB PO SCH ×2 (08:00→13:18)
[2022-04-11] MEDS: METOPROLOL TAR 50 MG TAB PO SCH ×2 (08:40→20:19)
[2022-04-11] MEDS: VITAMIN D 5,000 UNIT CAP PO SCH (08:40)
[2022-04-11] MEDS: predniSONE 10 MG TAB PO SCH (08:40)
[2022-04-11] MEDS: HYDROCODONE/APAP 7.5/325 MG TAB PO PRN ×2 (08:43→17:47)
[2022-04-11] MEDS: BUMETANIDE 1 MG TABLET PO SCH (10:11)
[2022-04-11] MEDS ORDERED: DRISDOL (VITAMIN D=ERGOCALCIFEROL) 50000 UNIT CAP PO ONE (17:00)
[2022-04-11] MEDS: FAMOTIDINE 20 MG TAB PO SCH (20:18)
[2022-04-11] MEDS: MIRTAZAPINE 15 MG TAB PO SCH (20:19)
[2022-04-11] MEDS: HEPARIN 5000 UNIT/ML 1 ML VIAL SQ SCH (20:19)
--- NOTE | 2022-04-11 20:45 | PN ---
Date of Progress Note: 04/11/2022 Subjective: The patient is seen in room 510 on the rehab floor at [facility] in [facility] Objective: Vital Signs: Vitals are stable. Blood pressure is 130/82, pulse is 90-95 and regular, r espirations around 14-16. The patient is afebrile, O2 sats are 95% on room air. Lungs: Clear to auscultation. Extremities: Revealed trace edema. Abdomen: Soft. The patient has an ostomy tube with stool in it on the left side. Scars on the abdo men, abdomen is cleanly dressed and covered. Neck: The patient has a catheter on the right side of her neck. Catheter site looks clean. There i s no drainage or bleeding from the site. Laboratory Data: Labs reviewed. Labs show sodium today at 146, potassium of 3.6, chloride 113, bica rb 27; BUN 34, creatinine 2.76, glucose of 77, calcium at 7.6, albumin at 2.0. Sodium yesterday was 142, potassium was 3.2, it has improved to 3.6, chloride was 111, bicarb is stable at 27, yesterday w as 27 as well. BUN and creatinine are reasonably stable. Yesterday it was 32 and 2.73. WBC was 10. 8 yesterday, hemoglobin 8.4, hematocrit 24.1, platelet count of 199. Assessment And Plan: 1.The patient with history of kidney disease requiring dialysis/lupus nephritis. Currently, the pat ient is reasonably stable. Creatinine is stable. BUN is stable. Electrolytes seem reasonable with potassium as she was on the lower side and currently looking okay. Does not seem to need any acute d ialysis. The patient is having reasonable urine output. She had dialysis almost about a week ago as per patient and has not developed any shortness of breath and she may be stabilizing some of her kaycee al function. At this point, we will continue to hold off on dialysis. Recheck her blood work on Wed. Dr. Joseph and Dr. Potts have been following patient, can then continue further follow to see if catheter can be removed and dialysis can be more permanently held. In case the patient's conditio n worsens, creatinine goes up, shortness of breath reoccurs or electrolyte abnormalities or acidosis occurs, the patient may then need to be restarted on dialysis or catheter may not be able to be disco ntinued and the patient may need dialysis. Explained all this to the patient. Her father was in the room also with her stepmother. Also, her mother was on the phone. I have discussed this with the annemarie banks and the patient seemed to understand. 2.Chronic anemia. The patient has had blood transfusions. She is currently on TANIA and is toleratin g that well. 3.Lupus. The patient is on maintenance prednisone. She is off MMF. 4.Hypocalcemia. We will give her a vitamin D ergocalciferol 22380 units x1 and then can be further adjusted going forward. Medications are in the chart and have been reviewed. The patient is current ly on calciferol 5000 units. She is also on Retacrit 55647 units. We will continue calciferol p.o. on a daily basis, but we will give her 1 dose of 50,000 also at this time. /ANTONIO Voice ID: [id number] Report ID: [id number]
[2022-04-12] MEDS: HEPARIN 5000 UNIT/ML 1 ML VIAL SQ SCH ×2 (07:37→20:04)
[2022-04-12] MEDS ORDERED: DRISDOL (VITAMIN D=ERGOCALCIFEROL) 50000 UNIT CAP PO ONE (08:00)
[2022-04-12] MEDS: VITAMIN D 5,000 UNIT CAP PO SCH (08:38)
[2022-04-12] MEDS: METOPROLOL TAR 50 MG TAB PO SCH ×2 (08:38→20:04)
[2022-04-12] MEDS: BUMETANIDE 1 MG TABLET PO SCH (08:39)
[2022-04-12] MEDS: predniSONE 10 MG TAB PO SCH (08:39)
[2022-04-12] MEDS: HYDROCODONE/APAP 7.5/325 MG TAB PO PRN ×2 (10:45→18:22)
[2022-04-12] MEDS: POLYETHYL GLY 3350 17 GM/DOSE PO PRN (11:01)
[2022-04-12] MEDS: AMLODIPINE 10 MG TAB PO SCH (13:12)
[2022-04-12] MEDS: FAMOTIDINE 20 MG TAB PO SCH (20:04)
[2022-04-12] MEDS: MIRTAZAPINE 15 MG TAB PO SCH (20:04)
[2022-04-13 04:41] LABS: Absolute Lymphocytes (CBC) 1.8 K/uL (0.7-4.9); Hematocrit 23.1 % (36.0-45.0); Lymphocytes % 16.3 % (15.3-44.8); MCV 81.7 fL (80-100); RBC Red Blood Cell Count 2.82 M/uL (3.86-4.86)
[2022-04-13 05:02] LABS: Potassium 3.4 mmol/L (3.5-5.1)
[2022-04-13] MEDS: HEPARIN 5000 UNIT/ML 1 ML VIAL SQ SCH ×2 (07:18→18:14)
[2022-04-13] MEDS: BUMETANIDE 1 MG TABLET PO SCH (08:10)
[2022-04-13] MEDS: VITAMIN D 5,000 UNIT CAP PO SCH (08:11)
[2022-04-13] MEDS: METOPROLOL TAR 50 MG TAB PO SCH ×2 (08:11→20:23)
[2022-04-13] MEDS: predniSONE 10 MG TAB PO SCH (08:11)
[2022-04-13] MEDS: HYDROCODONE/APAP 7.5/325 MG TAB PO PRN ×2 (08:41→13:14)
[2022-04-13] MEDS ORDERED: POTASSIUM CL SA 10 MEQ TAB PO ONE (12:45)
[2022-04-13] MEDS: AMLODIPINE 10 MG TAB PO SCH (12:48)
[2022-04-13] MEDS: EPOETIN ALFA 10,000 UNIT/ML VIAL SQ SCH (16:33)
[2022-04-13] MEDS: Meropenem 500 MG in NA CHLORIDE 0.9% 100 ML IV SCH (16:51)
[2022-04-13] MEDS: MUPIROCIN 2% OINT 22GM TUBE TOP SCH (16:52)
--- NOTE | 2022-04-13 19:26 | R.PN ---
PROGRESS NOTES ENCOUNTER DATE AND TIME: 04/13/2022 19:15 (CDT) NAME BRIANNA NIETO DATE OF : 1990 DATE OF ADMISSION: 04/09/2022 16:39 (CDT) K57.20 Perforated Diverticular [id number] Perforated ViscusCHIEF COMPLAINT: Perforated Diverticular disease SUBJECTIVE: Pt denied any Shortness of Breath. Pt denied any depression. Wheelchair mobility 250' with SBA. VITAL SIGNS Temperature: 97.0 F SBP/DBP: 139/84 Pulse: 99 Resp: 16 MEDICATION ALLERGIES: Toradol Tramadol ENVIRONMENTAL ALLERGIES: - Substance Allergies None Known - Other Allergies None Known NURSING: - Shower allowing shower PRECAUTIONS: - Fall Precaution Bed alarm TABS alarm Wheel chair alarm - Bleeding Risk Lovenox - DVT Risk due to restricted mobility - Skin Breakdown Risk Routine Wound care due to restricted mobility ACTIVITIES OOB only with supervision THERAPIES: - Dietary and Nutrition Adequate Nutrition. Nutritional Education. Nutritional Supplements. - Occupational Therapy Cognitive Retraining. Patient needs Occupational Therapy for a daily minimum of 1.5 hours at least 5 out of 7 days, to improve Activities of Daily Living, including: Eating, Grooming, Bathing, Dressing, Toileting, Toilet Transfers, Community Reintegration, Higher functional activities, Adaptive Equipme nt, Splinting, Household Tasks, and Other activities as determined. Visual Perceptual Training. - Physical Therapy Patient needs Physical Therapy for a daily minimum of 1.5 hours at least 5 out of 7 days, to improve: Mobility, Strengthening, Transfers, Stretching, ROM, Endurance, Ability to manage stairs, Gait, and Balance. PHYSICAL EXAM - Gen Alert and awake Lying in bed No apparent distress Oriented to: person, time, and place - Skin No skin breakdown. Normacephalic - Eyes No abnormalities - ENMT No abnormalities - Neck No abnormalities - CVS RRR - Chest No abnormalities - Abd colostomy in place - GI Non distended Deferred - Rivera catheter - Ext Mild bilateral lower extremity edema. - MSK 4/5 weakness in both lower extremities. - Neuro No focal deficits - Psych Mild depression. ASSESSMENT: Pt. is a 32 yo female of unknown race.On 02/16/2022 [facility] di agnosis K57.20 Perforated Diverticular disease.Her impairment category is Medically Complex Condition s 17 - Infections (17.1).Pre-morbidly, Pt. was independent/mod-I in Locomotion and Self-Care; and sh e had good Balance, Transfers Control, Self-Care, and Endurance.Currently, she has deficits of Locomo tion, Balance, Transfers Control, Self-Care, and Endurance.Pt. is now referred to [facility] for acute in-patient rehabilitation in order to maximize patient's functional independ ence in activities of daily living, strength, ROM, and mobility.- Rehab Goal Patient has realistic goal of being discharged at assistance level 6-Tiffany to reside at Home with Fam fermin/Relatives. MDM/PLAN: - Physical Therapy Gait dysfunction - to improve, our physical therapists will perform initial evaluation of pt's statu s upon admission and devise an individualized program for Gait Training, and Wheel Chair mobility Inability to transfer - to improve, our physical therapists will perform initial evaluation of pt's status upon admission and devise an individualized program for Bed mobility Need for home safety evaluation - to improve, our physical therapists will perform initial evaluatio n of pt's status upon admission and devise an individualized program for Home Evaluation Need in caregiver upon discharge - to improve, our physical therapists will perform initial evaluati on of pt's status upon admission and devise an individualized program for Caregiver Training New precaution - to improve, our physical therapists will perform initial evaluation of pt's status upon admission and devise an individualized program for Patient precaution education Edema - to improve, our physical therapists will perform initial evaluation of pt's status upon admis isaiah and devise an individualized program for Elevation Training, and Lymphedema Therapy Poor balance - to improve, our physical therapists will perform initial evaluation of pt's status up on admission and devise an individualized program for Balance Training Poor endurance - to improve, our physical therapists will perform initial evaluation of pt's status upon admission and devise an individualized program for Endurance Training Weakness - to improve, our physical therapists will perform initial evaluation of pt's status upon a dmission and devise an individualized program for Aquatic Therapy, Neuromuscular Reeducation, and Str engthening Achieving independence - to improve, our physical therapists will perform initial evaluation of pt's status upon admission and devise an individualized program for Community Reintegration Activities - Occupational Therapy ADL deficits - to improve, our occupation therapists will perform initial evaluation of pt's status upon admission and devise an individualized program for Bathing, Bed mobility, Community Reintegratio n, Cooking, Dressing, Eating, Fine Motor Skills, Grooming, Homemaking, Kitchen Mobility, Laundry, Pat ient Education, Safety Awareness, Splinting - Positioning, Transfers(Toilet, Tub, Shower), and Wheel Chair Management Need for sub acute care nurse - to improve, our occupation therapists will perform initial evaluation of pt's status upon admission and devise an individualized program for Caregiver Training Weakness - to improve, our occupation therapists will perform initial evaluation of pt's status upon admission and devise an individualized program for Aquatic Therapy, Balance, Endurance, UE ROM, and UE strengthening - Other See attached MAR (Medication Administration Record) - Diet Type Continue Renal - Diet - Liquid Texture Continue Regular - Tube Feed Continue N/A - Bleeding Risk Lovenox - DVT Risk due to restricted mobility - Skin Breakdown Risk Routine Wound care due to restricted mobility - Fall Precaution Bed alarm TABS alarm Wheel chair alarm - Diet - Solid Texture Continue Regular - Shower allowing shower FUNCTIONAL STATUS: UPDATED AT WEEKLY TEAM CONFERENCE - Bladder Same accident frequency: 7-Ind - No accidents in the past 7 days - Bowel Same accident frequency: 7-Ind - No accidents in the past 7 days - Walking Same score based on distance walked: 0(N/A) - Wheelchair Same score based on distance traveled: 0(N/A) FUNCTIONAL STATUS: - Self-Care A. Eating Ind B. Grooming Tiffany C. Bathing modA D. Dressing - Upper Grace E. Dressing - Lower modA F. Toileting sup - Sphincter Control G. Bladder control Grace H. Bowel control Tiffany - Transfers Control I. Bed/Chair/Wheelchair Grace J. Toilet Grace K. Tub/Shower modA - Locomotion L. Walk/Wheelchair (B) Grace M. Stairs maxA - Communication N. Comprehension (B) Tiffany O. Expression (B) Tiffany - Social Cognition P. Social Interaction Ind Q. Problem Solving sup R. Memory Ind - Endurance Fair - Balance Fair - Safety Awareness Fair QI SCORES: - Self-Care A. Eating 04-Supervision or touching assistance B. Oral hygiene 04-Supervision or touching assistance C. Toileting hygiene 01-Dependent E. Shower/bathe self 01-Dependent F. Upper body dressing 03-Partial/moderate assistance G. Lower body dressing 01-Dependent H. Putting on/taking off footwear 01-Dependent - Mobility A. Roll left and right 88-Not attempted due to medical condition or safety concerns B. Sit to lying 01-Dependent C. Lying to sitting on side of bed 01-Dependent D. Sit to stand 88-Not attempted due to medical condition or safety concerns E. Chair/pff-[id number] transfer 88-Not attempted due to medical condition or safety concerns F. Toilet transfer 88-Not attempted due to medical condition or safety concerns G. Car transfer 88-Not attempted due to medical condition or safety concerns I. Walk 10 feet 88-Not attempted due to medical condition or safety concerns J. Walk 50 feet with two turns 88-Not attempted due to medical condition or safety concerns K. Walk 150 feet 88-Not attempted due to medical condition or safety concerns L. Walking 10 feet on uneven surfaces 88-Not attempted due to medical condition or safety concerns M. 1 step (curb) 88-Not attempted due to medical condition or safety concerns N. 4 steps 88-Not attempted due to medical condition or safety concerns O. 12 steps 88-Not attempted due to medical condition or safety concerns P. Picking up object 88-Not attempted due to medical condition or safety concerns R. Wheel 50 feet with two turns 09-Not applicable S. Wheel 150 feet 09-Not applicable - Bladder and Bowel Bladder continence 9-Not applicable Bowel continence 0-Always continent - Endurance Fair - Balance Poor - Safety Awareness Fair CURRENT FUNC. DEFICITS: Self-Care, Endurance, Balance, Safety Awareness, and Mobility SIGNATURE PANEL: (CDT)
[2022-04-13] MEDS ORDERED: Meropenem 500 MG in NA CHLORIDE 0.9% 100 ML IV SCH (20:00)
[2022-04-13] MEDS: FAMOTIDINE 20 MG TAB PO SCH (20:24)
[2022-04-13] MEDS: MIRTAZAPINE 15 MG TAB PO SCH (20:24)
--- NOTE | 2022-04-13 20:51 | CON ---
History Of Present Illness: This is a 32-year-old female recently seen by me before being transferre d to the [facility]. The patient is here now for rehab. I was consulted for evaluation of pseudomonas infection in the urine. The patient's urine culture from 04/10 shows more than 100,000 colony count of Pseudomonas aeruginosa, which is sensitive to quinolones, meropenem, and aminoglycosi john. The patient denies any headache, nausea, vomiting, chest pain, having some abdominal discomfort from the surgical debridement. Does complain of urgency and burning urination, but no frequency. Past Medical History: As per HPI. Social History: Nonsmoker, nondrinker. Family History: Noncontributory. Medications: Not any antibiotic. See MAR for other medications. Allergies: TORADOL AND TRAMADOL. Review of Systems: A 10-point review was performed. Physical Examination: General: This is a 32-year-old female, lying in bed, not in any acute cardiopulmonary distress. Vital Signs: Temperature 98, pulse 90, respirations 16, blood pressure 139/84. HEENT: Unremarkable. Neck: Supple. Lungs: Basal crackles. Abdomen: Soft, nontender. Bowel sounds present. Extremities: No edema. Laboratory Data: Shows WBC 11.1, hemoglobin 7.7, platelets are 202. Chemistry shows sodium 145, pot assium 3.4, chloride 113, bicarb 26, BUN 34, creatinine 2.2, glucose is 80. Urine cultures are growi ng Pseudomonas aeruginosa. Assessment And Plan: Urinary tract infection in a patient with recent diverticular perforation. The patient does show slight leukocytosis. We will recommend to start the patient on meropenem for 5 da ys. Pharmacy to adjust dosage, as the patient has renal failure, moderate to severe protein-calorie malnourishment, as the patient currently went through multiple challenges from abdominal surgeries, b ut has turned around well. We will continue to follow. Thank you Dr. Potts for consult. NF/MODL Voice ID: [id number] Report ID: [id number]
--- NOTE | 2022-04-13 21:03 | P.PN ---
Date of Service: 04/13/22 Vital Signs Temp Pulse Resp BP Pulse Ox 97.0 F 108 H 18 121/77 98 04/13/22 20:42 04/13/22 20:42 04/13/22 20:42 04/13/22 20:42 04/13/22 20:42 Medications Hydrocodone Bitart/Acetaminophen (Hydrocodone/Apap 7.5/325 Mg Tab) 1 tab PO Q4H PRN PRN Reason: Pain scale 8-10 (Severe) Last Admin: 04/13/22 13:14 Dose: 1 tab Amlodipine Besylate (Amlodipine 10 Mg Tab) 10 mg PO 0800 [facility] Last Admin: 04/13/22 12:48 Dose: 10 mg Bumetanide (Bumetanide 1 Mg Tablet) 0.5 mg PO DAILY [facility] Last Admin: 04/13/22 08:10 Dose: 0.5 mg Cholecalciferol (Vitamin D 5,000 Unit Cap) 5,000 unit PO DAILY [facility] Last Admin: 04/13/22 08:11 Dose: 5,000 unit Cyclobenzaprine HCl (Cyclobenzaprine 10 Mg Tab) 10 mg PO BIDP PRN PRN Reason: MUSCLE SPASMS Epoetin Toni (Epoetin Toni 10,000 Unit/Ml Vial) 10,000 unit SQ M,W,F [facility] Last Admin: 04/13/22 16:33 Dose: 10,000 unit Famotidine (Famotidine 20 Mg Tab) 20 mg PO BEDTIME [facility]; Protocol Last Admin: 04/13/22 20:24 Dose: 20 mg Heparin Sodium (Porcine) (Heparin 1,000 Unit/Ml Vial) 4,000 unit IV EVERY HD PRN PRN Reason: DIALYSIS CATHETER CARE Heparin Sodium (Porcine) (Heparin 5000 Unit/Ml 1 Ml Vial) 5,000 unit SQ Q12HR [facility] Last Admin: 04/13/22 18:14 Dose: 5,000 unit Meropenem 500 mg/ Sodium (Chloride) 100 mls @ 200 mls/hr IV DAILY [facility] Stop: 04/22/22 08:29 Last Admin: 04/13/22 16:51 Dose: 100 mls Lorazepam (Lorazepam 0.5 Mg Tablet) 0.25 mg PO BID PRN PRN Reason: ANXIETY Metoprolol Tartrate (Metoprolol Tar 50 Mg Tab) 50 mg PO BID [facility] Last Admin: 04/13/22 20:23 Dose: 50 mg Mirtazapine (Mirtazapine 15 Mg Tab) 15 mg PO BEDTIME [facility] Last Admin: 04/13/22 20:24 Dose: 15 mg Mupirocin (Mupirocin 2% Oint 22gm Tube) 1 appl TOP DAILY [facility] Last Admin: 04/13/22 16:52 Dose: 1 applic Polyethylene Glycol (Polyethyl Gly 3350 17 Gm/Dose) 17 gm PO DAILY PRN PRN Reason: CONSTIPATION Last Admin: 04/12/22 11:01 Dose: 17 gm Prednisone (Prednisone 10 Mg Tab) 10 mg PO DAILY [facility] Last Admin: 04/13/22 08:11 Dose: 10 mg Lab Results (last 24 hrs) 04/13/22 04:08: WBC 11.10 H, RBC 2.82 L, Hgb 7.7 L, Hct 23.1 L, MCV 81.7, MCH 27.4, MCHC 33.5, RDW 16.4 H, Plt Count 202, MPV 7.0 L D, Neutrophils % 71.9, Lymphocytes % 16.3, Monocytes % 10.4, Eosinophils % 1.0, Basophils % 0.4, Absolute Neutrophils 8.0, Absolute Lymphocytes 1.8, Absolute Monocytes 1.2, Absolute Eosinophils 0.1, Absolute Basophils 0.0 04/13/22 04:08: Sodium 145, Potassium 3.4 L, Chloride 113 H, Carbon Dioxide 26, Anion Gap 9.4, BUN 34 H, Creatinine 2.28 H, Est GFR (CKD-EPI) 29 L, Glucose 80, Calcium 7.8 L Microbiology Results 04/10/22 05:00 Catheterized Urine [place] Count - Final >100,000 CFU/ML. 04/10/22 05:00 Catheterized Urine - Final Pseudomonas Aeruginosa Assessment/ Plan: Nephrology No dyspnea No chest pain No acute events overnight Vitals, medications, blood work and imaging reviewed in the chart. NAD. NCAT. MMM. Neck supple. Normal respiratory effort. RRR. Abd ND. No C/C/E. No rash. AAO. Normal speech. HERMILA CKD IV -No NSAIDs Hypokalemia -Replete potassium Moderate malnutrition with anorexia -Encourage nutrition Anemia in chronic illness -Monitor H&H -Start Retacrit Debility/ Weakness/ Asthenia -Continue PT Acute PSA Cystitis -Consult ID for evaluation and treatment
[2022-04-14] MEDS: Meropenem 500 MG in NA CHLORIDE 0.9% 100 ML IV SCH (06:52)
[2022-04-14] MEDS: HEPARIN 5000 UNIT/ML 1 ML VIAL SQ SCH ×2 (07:36→18:14)
[2022-04-14] MEDS: MUPIROCIN 2% OINT 22GM TUBE TOP SCH (07:41)
[2022-04-14] MEDS: AMLODIPINE 10 MG TAB PO SCH (07:42)
[2022-04-14] MEDS: VITAMIN D 5,000 UNIT CAP PO SCH (07:42)
[2022-04-14] MEDS: predniSONE 10 MG TAB PO SCH (07:42)
[2022-04-14] MEDS: METOPROLOL TAR 50 MG TAB PO SCH ×2 (07:42→21:40)
[2022-04-14] MEDS: BUMETANIDE 1 MG TABLET PO SCH (07:42)
[2022-04-14] MEDS ORDERED: Meropenem 500 MG in NA CHLORIDE 0.9% 100 ML IV SCH (08:00)
[2022-04-14] MEDS: HYDROCODONE/APAP 7.5/325 MG TAB PO PRN ×2 (08:35→21:40)
[2022-04-14] MEDS ORDERED: EPOETIN ALFA-EPBX 10,000 UNIT/ML VIAL SQ SCH (09:00)
[2022-04-14 15:41] LABS: Hematocrit 23.4 % (36.0-45.0); Lymphocytes % 8.6 % (15.3-44.8); MPV 7.6 fL (7.6-11.3); RBC Red Blood Cell Count 2.82 M/uL (3.86-4.86)
[2022-04-14 15:53] LABS: Potassium 4.3 mmol/L (3.5-5.1)
[2022-04-14] MEDS: POLYETHYL GLY 3350 17 GM/DOSE PO PRN (16:03)
[2022-04-14 16:43] LABS: Blood Morphology Comment NOT SEEN (NOT SEEN); Platelet Estimate ADEQ; White Blood Cell Scan OK (OK)
--- NOTE | 2022-04-14 16:54 | PN ---
Subjective: The patient is lying in bed. No new acute event. Chart reviewed. Feels much better tod ay compared to yesterday. No burning sensation on urination. The patient is currently getting merop enem. Objective: Vital Signs: Reviewed. Lungs: Clear to auscultation. Heart: S1, S2. Regular. Bowel sounds present. Extremities: No edema. Laboratory Data: Reviewed. Assessment And Plan: Urinary tract infection secondary to Pseudomonas. Continue meropenem for total of 5 days. We will follow the patient as needed. Renal failure and anemia of chronic disease. We will repeat CBC and BMP for tomorrow. No other recommendation at this time. NF/MODL Voice ID: [id number] Report ID: [id number]
--- NOTE | 2022-04-14 17:19 | P.PN ---
Date of Service: 04/14/22 Vital Signs Temp Pulse Resp BP Pulse Ox 98.1 F 103 H 18 135/80 97 04/14/22 06:42 04/14/22 07:42 04/14/22 09:28 04/14/22 07:42 04/14/22 09:28 Medications Hydrocodone Bitart/Acetaminophen (Hydrocodone/Apap 7.5/325 Mg Tab) 1 tab PO Q4H PRN PRN Reason: Pain scale 8-10 (Severe) Last Admin: 04/14/22 08:35 Dose: 1 tab Amlodipine Besylate (Amlodipine 10 Mg Tab) 10 mg PO 0800 [facility] Last Admin: 04/14/22 07:42 Dose: 10 mg Bumetanide (Bumetanide 1 Mg Tablet) 0.5 mg PO DAILY [facility] Last Admin: 04/14/22 07:42 Dose: 0.5 mg Cholecalciferol (Vitamin D 5,000 Unit Cap) 5,000 unit PO DAILY [facility] Last Admin: 04/14/22 07:42 Dose: 5,000 unit Cyclobenzaprine HCl (Cyclobenzaprine 10 Mg Tab) 10 mg PO BIDP PRN PRN Reason: MUSCLE SPASMS Epoetin Toni (Epoetin Toni 10,000 Unit/Ml Vial) 10,000 unit SQ M,W,F [facility] Last Admin: 04/13/22 16:33 Dose: 10,000 unit Famotidine (Famotidine 20 Mg Tab) 20 mg PO BEDTIME [facility]; Protocol Last Admin: 04/13/22 20:24 Dose: 20 mg Heparin Sodium (Porcine) (Heparin 1,000 Unit/Ml Vial) 4,000 unit IV EVERY HD PRN PRN Reason: DIALYSIS CATHETER CARE Heparin Sodium (Porcine) (Heparin 5000 Unit/Ml 1 Ml Vial) 5,000 unit SQ Q12HR [facility] Last Admin: 04/14/22 07:36 Dose: 5,000 unit Meropenem 500 mg/ Sodium (Chloride) 100 mls @ 200 mls/hr IV DAILY [facility] Stop: 04/22/22 08:29 Last Admin: 04/14/22 06:52 Dose: 100 mls Lorazepam (Lorazepam 0.5 Mg Tablet) 0.25 mg PO BID PRN PRN Reason: ANXIETY Metoprolol Tartrate (Metoprolol Tar 50 Mg Tab) 50 mg PO BID [facility] Last Admin: 04/14/22 07:42 Dose: 50 mg Mirtazapine (Mirtazapine 15 Mg Tab) 15 mg PO BEDTIME [facility] Last Admin: 04/13/22 20:24 Dose: 15 mg Mupirocin (Mupirocin 2% Oint 22gm Tube) 1 appl TOP DAILY [facility] Last Admin: 04/14/22 07:41 Dose: 1 applic Nutritional Formula (Ensure High Protein 237 Ml Can) 237 ml PO BID [facility] Polyethylene Glycol (Polyethyl Gly 3350 17 Gm/Dose) 17 gm PO DAILY PRN PRN Reason: CONSTIPATION Last Admin: 04/14/22 16:03 Dose: 17 gm Prednisone (Prednisone 10 Mg Tab) 10 mg PO DAILY [facility] Last Admin: 04/14/22 07:42 Dose: 10 mg Lab Results (last 24 hrs) 04/14/22 15:24: Sodium 143, Potassium 4.3, Chloride 111 H, Carbon Dioxide 25, Anion Gap 11.3 D, BUN 38 H, Creatinine 2.16 H, Est GFR (CKD-EPI) 30 L, Glucose 127 H, Calcium 8.0 L 04/14/22 15:24: WBC 12.20 H, RBC 2.82 L, Hgb 7.5 L, Hct 23.4 L, MCV 83.0, MCH 26.5 L, MCHC 31.9 L, RDW 16.5 H, Plt Count 189, MPV 7.6, Neutrophils % 83.9 H, Lymphocytes % 8.6 L, Monocytes % 6.6, Eosinophils % 0.3, Basophils % 0.6, Absolute Neutrophils 10.2 H, Absolute Lymphocytes 1.0, Absolute Monocytes 0.8, Absolute Eosinophils 0.0, Absolute Basophils 0.1, Platelet Estimate Adeq, Morphology Comment Not seen, Smear Scan Ok Microbiology Results 04/10/22 05:00 Catheterized Urine [place] Count - Final >100,000 CFU/ML. 04/10/22 05:00 Catheterized Urine - Final Pseudomonas Aeruginosa Assessment/ Plan: Nephrology No dyspnea No chest pain No acute events overnight Vitals, medications, blood work and imaging reviewed in the chart. NAD. NCAT. MMM. Neck supple. Normal respiratory effort. RRR. Abd ND. No C/C/E. No rash. AAO. Normal speech. HERMILA CKD IV -No NSAIDs Hypokalemia -Replete potassium prn HTN with CKD -Continue Amlodipine LE Edema -Continue Bumex Moderate malnutrition with anorexia -Encourage nutrition Anemia in chronic illness -Monitor H&H -Continue Retacrit Debility/ Weakness/ Asthenia -Continue PT Acute PSA Cystitis -ID following -Continue Meropenem
--- NOTE | 2022-04-14 19:49 | R.PN ---
PROGRESS NOTES ENCOUNTER DATE AND TIME: 04/14/2022 19:46 (CDT) NAME BRIANNA NIETO DATE OF : 1990 DATE OF ADMISSION: 04/09/2022 16:39 (CDT) K57.20 Perforated Diverticular [id number] Perforated ViscusCHIEF COMPLAINT: Perforated Diverticular disease SUBJECTIVE: Pt denied any Shortness of Breath. Pt denied any depression. Wheelchair mobility 250' with SBA. VITAL SIGNS Temperature: 98.1 F SBP/DBP: 135/80 Pulse: 103 Resp: 16 MEDICATION ALLERGIES: Toradol Tramadol ENVIRONMENTAL ALLERGIES: - Substance Allergies None Known - Other Allergies None Known NURSING: - Shower allowing shower PRECAUTIONS: - Fall Precaution Bed alarm TABS alarm Wheel chair alarm - Bleeding Risk Lovenox - DVT Risk due to restricted mobility - Skin Breakdown Risk Routine Wound care due to restricted mobility ACTIVITIES OOB only with supervision THERAPIES: - Dietary and Nutrition Adequate Nutrition. Nutritional Education. Nutritional Supplements. - Occupational Therapy Cognitive Retraining. Patient needs Occupational Therapy for a daily minimum of 1.5 hours at least 5 out of 7 days, to improve Activities of Daily Living, including: Eating, Grooming, Bathing, Dressing, Toileting, Toilet Transfers, Community Reintegration, Higher functional activities, Adaptive Equipme nt, Splinting, Household Tasks, and Other activities as determined. Visual Perceptual Training. - Physical Therapy Patient needs Physical Therapy for a daily minimum of 1.5 hours at least 5 out of 7 days, to improve: Mobility, Strengthening, Transfers, Stretching, ROM, Endurance, Ability to manage stairs, Gait, and Balance. PHYSICAL EXAM - Gen Alert and awake Lying in bed No apparent distress Oriented to: person, time, and place - Skin No skin breakdown. Normacephalic - Eyes No abnormalities - ENMT No abnormalities - Neck No abnormalities - CVS RRR - Chest No abnormalities - Abd colostomy in place - GI Non distended Deferred - Rivera catheter - Ext Mild bilateral lower extremity edema. - MSK 4/5 weakness in both lower extremities. - Neuro No focal deficits - Psych Mild depression. ASSESSMENT: Pt. is a 32 yo female of unknown race.On 02/16/2022 she was admitted to [facility] with di agnosis K57.20 Perforated Diverticular disease.Her impairment category is Medically Complex Condition s 17 - Infections (17.1).Pre-morbidly, Pt. was independent/mod-I in Locomotion and Self-Care; and sh e had good Balance, Transfers Control, Self-Care, and Endurance.Currently, she has deficits of Locomo tion, Balance, Transfers Control, Self-Care, and Endurance.Pt. is now referred to [facility] for acute in-patient rehabilitation in order to maximize patient's functional independ ence in activities of daily living, strength, ROM, and mobility.- Rehab Goal Patient has realistic goal of being discharged at assistance level 6-Tiffany to reside at Home with Fam fermin/Relatives. MDM/PLAN: - Physical Therapy Gait dysfunction - to improve, our physical therapists will perform initial evaluation of pt's statu s upon admission and devise an individualized program for Gait Training, and Wheel Chair mobility Inability to transfer - to improve, our physical therapists will perform initial evaluation of pt's status upon admission and devise an individualized program for Bed mobility Need for home safety evaluation - to improve, our physical therapists will perform initial evaluatio n of pt's status upon admission and devise an individualized program for Home Evaluation Need in caregiver upon discharge - to improve, our physical therapists will perform initial evaluati on of pt's status upon admission and devise an individualized program for Caregiver Training New precaution - to improve, our physical therapists will perform initial evaluation of pt's status upon admission and devise an individualized program for Patient precaution education Edema - to improve, our physical therapists will perform initial evaluation of pt's status upon admi ssion and devise an individualized program for Elevation Training, and Lymphedema Therapy Poor balance - to improve, our physical therapists will perform initial evaluation of pt's status up on admission and devise an individualized program for Balance Training Poor endurance - to improve, our physical therapists will perform initial evaluation of pt's status upon admission and devise an individualized program for Endurance Training Weakness - to improve, our physical therapists will perform initial evaluation of pt's status upon a dmission and devise an individualized program for Aquatic Therapy, Neuromuscular Reeducation, and Str engthening Achieving independence - to improve, our physical therapists will perform initial evaluation of pt's status upon admission and devise an individualized program for Community Reintegration Activities - Occupational Therapy ADL deficits - to improve, our occupation therapists will perform initial evaluation of pt's status upon admission and devise an individualized program for Bathing, Bed mobility, Community Reintegratio n, Cooking, Dressing, Eating, Fine Motor Skills, Grooming, Homemaking, Kitchen Mobility, Laundry, Pat ient Education, Safety Awareness, Splinting - Positioning, Transfers(Toilet, Tub, Shower), and Wheel Chair Management Need for cardiac care unit nurse - to improve, our occupation therapists will perform initial evaluation of pt's status upon admission and devise an individualized program for Caregiver Training Weakness - to improve, our occupation therapists will perform initial evaluation of pt's status upon admission and devise an individualized program for Aquatic Therapy, Balance, Endurance, UE ROM, and UE strengthening - Other See attached MAR (Medication Administration Record) - Diet Type Continue Renal - Diet - Liquid Texture Continue Regular - Tube Feed Continue N/A - Bleeding Risk Lovenox - DVT Risk due to restricted mobility - Skin Breakdown Risk Routine Wound care due to restricted mobility - Fall Precaution Bed alarm TABS alarm Wheel chair alarm - Diet - Solid Texture Continue Regular - Shower allowing shower FUNCTIONAL STATUS: UPDATED AT WEEKLY TEAM CONFERENCE - Bladder Same accident frequency: 7-Ind - No accidents in the past 7 days - Bowel Same accident frequency: 7-Ind - No accidents in the past 7 days - Walking Same score based on distance walked: 0(N/A) - Wheelchair Same score based on distance traveled: 0(N/A) FUNCTIONAL STATUS: - Self-Care A. Eating Ind B. Grooming Tiffany C. Bathing modA D. Dressing - Upper Grace E. Dressing - Lower modA F. Toileting sup - Sphincter Control G. Bladder control Grace H. Bowel control Tiffany - Transfers Control I. Bed/Chair/Wheelchair Grace J. Toilet Grace K. Tub/Shower modA - Locomotion L. Walk/Wheelchair (B) Grace M. Stairs maxA - Communication N. Comprehension (B) Tiffany O. Expression (B) Tiffany - Social Cognition P. Social Interaction Ind Q. Problem Solving sup R. Memory Ind - Endurance Fair - Balance Fair - Safety Awareness Fair QI SCORES: - Self-Care A. Eating 04-Supervision or touching assistance B. Oral hygiene 04-Supervision or touching assistance C. Toileting hygiene 01-Dependent E. Shower/bathe self 01-Dependent F. Upper body dressing 03-Partial/moderate assistance G. Lower body dressing 01-Dependent H. Putting on/taking off footwear 01-Dependent - Mobility A. Roll left and right 88-Not attempted due to medical condition or safety concerns B. Sit to lying 01-Dependent C. Lying to sitting on side of bed 01-Dependent D. Sit to stand 88-Not attempted due to medical condition or safety concerns E. Chair/fdw-xq-wvesn transfer 88-Not attempted due to medical condition or safety concerns F. Toilet transfer 88-Not attempted due to medical condition or safety concerns G. Car transfer 88-Not attempted due to medical condition or safety concerns I. Walk 10 feet 88-Not attempted due to medical condition or safety concerns J. Walk 50 feet with two turns 88-Not attempted due to medical condition or safety concerns K. Walk 150 feet 88-Not attempted due to medical condition or safety concerns L. Walking 10 feet on uneven surfaces 88-Not attempted due to medical condition or safety concerns M. 1 step (curb) 88-Not attempted due to medical condition or safety concerns N. 4 steps 88-Not attempted due to medical condition or safety concerns O. 12 steps 88-Not attempted due to medical condition or safety concerns P. Picking up object 88-Not attempted due to medical condition or safety concerns R. Wheel 50 feet with two turns 09-Not applicable S. Wheel 150 feet 09-Not applicable - Bladder and Bowel Bladder continence 9-Not applicable Bowel continence 0-Always continent - Endurance Fair - Balance Poor - Safety Awareness Fair CURRENT FUNC. DEFICITS: Self-Care, Endurance, Balance, Safety Awareness, and Mobility SIGNATURE PANEL: (CDT)
[2022-04-14] MEDS: ENSURE HIGH PROTEIN 237 ML CAN PO SCH (20:00)
[2022-04-14] MEDS: FAMOTIDINE 20 MG TAB PO SCH (21:40)
[2022-04-14] MEDS: MIRTAZAPINE 15 MG TAB PO SCH (21:41)
[2022-04-15] MEDS: Meropenem 500 MG in NA CHLORIDE 0.9% 100 ML IV SCH (07:20)
[2022-04-15] MEDS: HEPARIN 5000 UNIT/ML 1 ML VIAL SQ SCH ×2 (07:30→19:50)
[2022-04-15] MEDS: AMLODIPINE 10 MG TAB PO SCH ×2 (08:00→12:11)
[2022-04-15] MEDS: VITAMIN D 5,000 UNIT CAP PO SCH (08:34)
[2022-04-15] MEDS: METOPROLOL TAR 50 MG TAB PO SCH ×2 (08:34→19:47)
[2022-04-15] MEDS: predniSONE 10 MG TAB PO SCH (08:35)
[2022-04-15] MEDS: BUMETANIDE 1 MG TABLET PO SCH (08:35)
[2022-04-15] MEDS: MUPIROCIN 2% OINT 22GM TUBE TOP SCH (08:36)
[2022-04-15] MEDS: HYDROCODONE/APAP 7.5/325 MG TAB PO PRN (08:39)
--- NOTE | 2022-04-15 11:42 | P.PN ---
Date of Service: 04/15/22 Nephrology (S) Pt reports still not able to walk, working with PT, so far doing exercises on transfers, standing. Pt's renal function tests and renal recovery discussed in detail Vitals, medications, blood work and imaging reviewed in the chart. General: NAD, non tachypnec HEENT: Atraumatic, NC no longer present Neck: Supple, Rt IJ TDC Respiratory: Normal respiratory effort, b/l air entry, no rhonchi Cardiovascular: No tachy, regular rate and rhythm Gastrointestinal: Surgical incision covered with dressing, colostomy present with stoma appearing retracted, ad distention improved Musculoskeletal: No clubbing, No contractures Ext: No sig LE edema Integumentary: No rashes, No cyanosis Neurological: Awake, alert, non encephalopathic, no tremors or myoclonus Labs reviewed in EMR Conclusions/Impression: Stage III ARF last month with presenting Cr level > 4 mg/dl in the setting of hypotension, anemia, sepsis, other likely leading to ATN 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 Last week had stopped ARB and now will d/c scheduled diuretic dose as prior generalized edema improved Underlying chronic HTN -BP stable currently, avoid relative hypotension, check orthostatic vitals as pt reports feeling equilibrium is off when she attempts to stand. Still not ambulating Acute on chronic anemia related to surgical losses and chronic illnesses including lupus, CKD, other -Multiple transfusions last month, Hb remains < 9, has been hyporesponsive to TANIA likely due to iron deficiency, will order Ferrlecit IV iron doses x 5 SLE with lupus nephritis. Leukocytosis resolved. -Monitor. Remains off IS/MMF, had been on stress dose steroids, back down to maintenance PO prednisone. W Pseudomonas bacteriuria -Complete Abx course Martin Joseph MD, [facility]
[2022-04-15] MEDS: ENSURE HIGH PROTEIN 237 ML CAN PO SCH ×2 (12:12→19:48)
[2022-04-15] MEDS ORDERED: AMLODIPINE 10 MG TAB PO SCH (13:00)
[2022-04-15] MEDS ORDERED: SIMETHICONE 80 MG TAB PO PRN ×2 (14:06→14:07)
[2022-04-15] MEDS: EPOETIN ALFA 10,000 UNIT/ML VIAL SQ SCH (16:52)
[2022-04-15] MEDS ORDERED: EPOETIN ALFA 10,000 UNIT/ML VIAL SQ SCH (17:00)
--- NOTE | 2022-04-15 17:25 | R.PN ---
PROGRESS NOTES ENCOUNTER DATE AND TIME: 04/15/2022 17:22 (CDT) NAME BRIANNA NIETO DATE OF : 1990 DATE OF ADMISSION: 04/09/2022 16:39 (CDT) K57.20 Perforated Diverticular [id number] Perforated ViscusCHIEF COMPLAINT: Perforated Diverticular disease SUBJECTIVE: Pt denied any Shortness of Breath. Pt denied any depression. Bed mobility done with min to mod assistance. Sit to stand done with max assistance. Wheelchair mobi lity 300' with SBA. VITAL SIGNS Temperature: 98.1 F SBP/DBP: 135/80 Pulse: 103 Resp: 16 MEDICATION ALLERGIES: Toradol Tramadol ENVIRONMENTAL ALLERGIES: - Substance Allergies None Known - Other Allergies None Known NURSING: - Shower allowing shower PRECAUTIONS: - Fall Precaution Bed alarm TABS alarm Wheel chair alarm - Bleeding Risk Lovenox - DVT Risk due to restricted mobility - Skin Breakdown Risk Routine Wound care due to restricted mobility ACTIVITIES OOB only with supervision THERAPIES: - Dietary and Nutrition Adequate Nutrition. Nutritional Education. Nutritional Supplements. - Occupational Therapy Cognitive Retraining. Patient needs Occupational Therapy for a daily minimum of 1.5 hours at least 5 out of 7 days, to improve Activities of Daily Living, including: Eating, Grooming, Bathing, Dressing, Toileting, Toilet Transfers, Community Reintegration, Higher functional activities, Adaptive Equipme nt, Splinting, Household Tasks, and Other activities as determined. Visual Perceptual Training. - Physical Therapy Patient needs Physical Therapy for a daily minimum of 1.5 hours at least 5 out of 7 days, to improve: Mobility, Strengthening, Transfers, Stretching, ROM, Endurance, Ability to manage stairs, Gait, and Balance. PHYSICAL EXAM - Gen Alert and awake Lying in bed No apparent distress Oriented to: person, time, and place - Skin No skin breakdown. Normacephalic - Eyes No abnormalities - ENMT No abnormalities - Neck No abnormalities - CVS RRR - Chest No abnormalities - Abd colostomy in place - GI Non distended Deferred - Rivera catheter - Ext Mild bilateral lower extremity edema. - MSK 4/5 weakness in both lower extremities. - Neuro No focal deficits - Psych Mild depression. ASSESSMENT: Pt. is a 32 yo female of unknown race.On 02/16/2022 she was admitted to [facility] with di agnosis K57.20 Perforated Diverticular disease.Her impairment category is Medically Complex Condition s 17 - Infections (17.1).Pre-morbidly, Pt. was independent/mod-I in Locomotion and Self-Care; and sh e had good Balance, Transfers Control, Self-Care, and Endurance.Currently, she has deficits of Locomo tion, Balance, Transfers Control, Self-Care, and Endurance.Pt. is now referred to [facility] for acute in-patient rehabilitation in order to maximize patient's functional independ ence in activities of daily living, strength, ROM, and mobility.- Rehab Goal Patient has realistic goal of being discharged at assistance level 6-Tiffany to reside at Home with Fam fermin/Relatives. MDM/PLAN: - Physical Therapy Gait dysfunction - to improve, our physical therapists will perform initial evaluation of pt's statu s upon admission and devise an individualized program for Gait Training, and Wheel Chair mobility Inability to transfer - to improve, our physical therapists will perform initial evaluation of pt's status upon admission and devise an individualized program for Bed mobility Need for home safety evaluation - to improve, our physical therapists will perform initial evaluatio n of pt's status upon admission and devise an individualized program for Home Evaluation Need in caregiver upon discharge - to improve, our physical therapists will perform initial evaluati on of pt's status upon admission and devise an individualized program for Caregiver Training New precaution - to improve, our physical therapists will perform initial evaluation of pt's status upon admission and devise an individualized program for Patient precaution education Edema - to improve, our physical therapists will perform initial evaluation of pt's status upon admi ssion and devise an individualized program for Elevation Training, and Lymphedema Therapy Poor balance - to improve, our physical therapists will perform initial evaluation of pt's status up on admission and devise an individualized program for Balance Training Poor endurance - to improve, our physical therapists will perform initial evaluation of pt's status upon admission and devise an individualized program for Endurance Training Weakness - to improve, our physical therapists will perform initial evaluation of pt's status upon a dmission and devise an individualized program for Aquatic Therapy, Neuromuscular Reeducation, and Str engthening Achieving independence - to improve, our physical therapists will perform initial evaluation of pt's status upon admission and devise an individualized program for Community Reintegration Activities - Occupational Therapy ADL deficits - to improve, our occupation therapists will perform initial evaluation of pt's status upon admission and devise an individualized program for Bathing, Bed mobility, Community Reintegratio n, Cooking, Dressing, Eating, Fine Motor Skills, Grooming, Homemaking, Kitchen Mobility, Laundry, Pat ient Education, Safety Awareness, Splinting - Positioning, Transfers(Toilet, Tub, Shower), and Wheel Chair Management Need for child care worker - to improve, our occupation therapists will perform initial evaluation of pt's status upon admission and devise an individualized program for Caregiver Training Weakness - to improve, our occupation therapists will perform initial evaluation of pt's status upon admission and devise an individualized program for Aquatic Therapy, Balance, Endurance, UE ROM, and UE strengthening - Other See attached MAR (Medication Administration Record) - Diet Type Continue Renal - Diet - Liquid Texture Continue Regular - Tube Feed Continue N/A - Bleeding Risk Lovenox - DVT Risk due to restricted mobility - Skin Breakdown Risk Routine Wound care due to restricted mobility - Fall Precaution Bed alarm TABS alarm Wheel chair alarm - Diet - Solid Texture Continue Regular - Shower allowing shower FUNCTIONAL STATUS: UPDATED AT WEEKLY TEAM CONFERENCE - Bladder Same accident frequency: 7-Ind - No accidents in the past 7 days - Bowel Same accident frequency: 7-Ind - No accidents in the past 7 days - Walking Same score based on distance walked: 0(N/A) - Wheelchair Same score based on distance traveled: 0(N/A) FUNCTIONAL STATUS: - Self-Care A. Eating Ind B. Grooming Tiffany C. Bathing modA D. Dressing - Upper Grace E. Dressing - Lower modA F. Toileting sup - Sphincter Control G. Bladder control Grace H. Bowel control Tiffany - Transfers Control I. Bed/Chair/Wheelchair Grace J. Toilet Grace K. Tub/Shower modA - Locomotion L. Walk/Wheelchair (B) Grace M. Stairs maxA - Communication N. Comprehension (B) Tiffany O. Expression (B) Tiffany - Social Cognition P. Social Interaction Ind Q. Problem Solving sup R. Memory Ind - Endurance Fair - Balance Fair - Safety Awareness Fair QI SCORES: - Self-Care A. Eating 04-Supervision or touching assistance B. Oral hygiene 04-Supervision or touching assistance C. Toileting hygiene 01-Dependent E. Shower/bathe self 01-Dependent F. Upper body dressing 03-Partial/moderate assistance G. Lower body dressing 01-Dependent H. Putting on/taking off footwear 01-Dependent - Mobility A. Roll left and right 88-Not attempted due to medical condition or safety concerns B. Sit to lying 01-Dependent C. Lying to sitting on side of bed 01-Dependent D. Sit to stand 88-Not attempted due to medical condition or safety concerns E. Chair/htd-br-twxty transfer 88-Not attempted due to medical condition or safety concerns F. Toilet transfer 88-Not attempted due to medical condition or safety concerns G. Car transfer 88-Not attempted due to medical condition or safety concerns I. Walk 10 feet 88-Not attempted due to medical condition or safety concerns J. Walk 50 feet with two turns 88-Not attempted due to medical condition or safety concerns K. Walk 150 feet 88-Not attempted due to medical condition or safety concerns L. Walking 10 feet on uneven surfaces 88-Not attempted due to medical condition or safety concerns M. 1 step (curb) 88-Not attempted due to medical condition or safety concerns N. 4 steps 88-Not attempted due to medical condition or safety concerns O. 12 steps 88-Not attempted due to medical condition or safety concerns P. Picking up object 88-Not attempted due to medical condition or safety concerns R. Wheel 50 feet with two turns 09-Not applicable S. Wheel 150 feet 09-Not applicable - Bladder and Bowel Bladder continence 9-Not applicable Bowel continence 0-Always continent - Endurance Fair - Balance Poor - Safety Awareness Fair CURRENT [facility]. DEFICITS: Self-Care, Endurance, Balance, Safety Awareness, and Mobility SIGNATURE PANEL: (CDT)
[2022-04-15] MEDS: FAMOTIDINE 20 MG TAB PO SCH (19:47)
[2022-04-15] MEDS: MIRTAZAPINE 15 MG TAB PO SCH (19:47)
[2022-04-16 04:35] LABS: Hematocrit 22.9 % (36.0-45.0); Lymphocytes % 14.9 % (15.3-44.8); MCV 82.9 fL (80-100); MPV 7.4 fL (7.6-11.3); Protime INR 1.15; RBC Red Blood Cell Count 2.76 M/uL (3.86-4.86)
[2022-04-16 04:47] LABS: Magnesium 1.5 mg/dL (1.8-2.4); Phosphorus 3.3 mg/dL (2.5-4.9); Potassium 3.6 mmol/L (3.5-5.1); Prealbumin 15.4 mg/dL (20-40)
[2022-04-16] MEDS ORDERED: NA CHLORIDE 0.9% 0 ML ONE (07:12)
[2022-04-16] MEDS: AMLODIPINE 5 MG TAB PO SCH (07:50)
[2022-04-16] MEDS: METOPROLOL TAR 50 MG TAB PO SCH ×2 (07:51→20:36)
[2022-04-16] MEDS: HEPARIN 5000 UNIT/ML 1 ML VIAL SQ SCH ×2 (07:52→20:15)
[2022-04-16] MEDS: Meropenem 500 MG in NA CHLORIDE 0.9% 100 ML IV SCH (07:53)
[2022-04-16] MEDS: VITAMIN D 5,000 UNIT CAP PO SCH ×2 (07:53→11:00)
[2022-04-16] MEDS: ENSURE HIGH PROTEIN 237 ML CAN PO SCH ×2 (07:53→20:36)
[2022-04-16] MEDS: MUPIROCIN 2% OINT 22GM TUBE TOP SCH (07:53)
[2022-04-16] MEDS: predniSONE 10 MG TAB PO SCH ×2 (07:53→10:59)
[2022-04-16] MEDS: LIDOCAINE 1% W/EPI 1:100,000 MDV 50 ML VIAL ONE ×2 (08:36→09:39)
[2022-04-16] MEDS ORDERED: NA CHLORIDE 0.9% 500 ML ONE (08:50)
[2022-04-16] MEDS ORDERED: CEFAZOLIN SODIUM 1 GM/VIAL ONE (08:55)
[2022-04-16] MEDS: CEFAZOLIN 1 GM in NA CHLORIDE 0.9% 50 ML IVPB SCH ×2 (08:55→09:16)
[2022-04-16] MEDS ORDERED: propofoL 200 MG/20 ML VIAL IV ONE (09:20)
[2022-04-16] MEDS ORDERED: LIDOCAINE 2% MPF 5 ML VIAL ONE (09:21)
[2022-04-16] MEDS ORDERED: MIDAZOLAM HCL 2 MG/2 ML INJ ONE (09:21)
--- NOTE | 2022-04-16 10:32 | OP ---
Date of Procedure: 04/16/2022 Surgeon: Filemon Caputo MD Preoperative Diagnosis: History of acute renal failure. Postoperative Diagnosis: History of acute renal failure. Procedure: Removal of right chest Tesio catheter. Estimated Blood Loss: Minimal. Specimen: Tesio catheter. Findings: As above. Anesthesia: MAC. Complications: None. Disposition: The patient tolerated the procedure in stable condition and taken to Recovery in good g eneral condition. Procedure In Detail: The patient was brought to the OR and placed in supine position. MAC anesthesi a was begun. The patient was prepped and draped in the usual sterile fashion. Lidocaine 1% infiltra diamond locally. Then, blunt and sharp dissection used to free the cuff from the surrounding tissue. Ca theter removed and sent to pathology for identification. Wound irrigated. Bleeding controlled with cautery and 3-0 chromic used to approximate the subcutaneous tissue and close the skin. Sterile dressing applied. The patient was awakened and taken to Recovery in good general condition. /MODL Voice ID: [id number] Report ID: [id number]
[2022-04-16] MEDS: SOD FERRIC GLUC COMPLX/SUCROSE 125 MG in NA CHLORIDE 0.9% 100 ML IV SCH (10:56)
[2022-04-16] MEDS: HYDROCODONE/APAP 7.5/325 MG TAB PO PRN ×2 (10:58→20:57)
--- NOTE | 2022-04-16 11:22 | P.PN ---
Date of Service: 04/16/22 Nephrology (S) Pt had TDC removed earlier this AM, I appreciate Dr. Caputo's help with this. Pt doing fine otherwise, no acute complaints. WBC noted to be mildly elevated, discussed with charge auditor. Vitals, medications, blood work and imaging reviewed in the chart. General: NAD, non tachypnec HEENT: Atraumatic, NC no longer present Neck: Supple, Rt IJ TDC removed. Respiratory: Normal respiratory effort, b/l air entry, no rhonchi Cardiovascular: No tachy, regular rate and rhythm Gastrointestinal: Surgical incision covered with dressing, colostomy present with stoma appearing retracted, ad distention improved Musculoskeletal: No clubbing, No contractures Ext: No sig LE edema Integumentary: No rashes, No cyanosis Neurological: Awake, alert, non encephalopathic, no tremors or myoclonus Labs reviewed in EMR Conclusions/Impression: Stage III ARF last month with presenting Cr level > 4 mg/dl in the setting of hypotension, anemia, sepsis, other likely leading to ATN 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 Last week had stopped ARB and yesterday did d/c scheduled diuretic dose as prior generalized edema improved and Na level now > 145, encouraged pt to increase PO fluid intake. Underlying chronic HTN -BP stable currently, avoid relative hypotension, check orthostatic vitals as pt reports feeling equilibrium is off when she attempts to stand. Still not ambulating Acute on chronic anemia related to surgical losses and chronic illnesses including lupus, CKD, other -Multiple transfusions last month, Hb remains < 9, has been hyporesponsive to TANIA likely due to iron deficiency, did order Ferrlecit IV iron doses x 5. Avoid transfusion for now, pt is not complaining for shortness of breath. SLE with lupus nephritis. Leukocytosis had resolved but back up mildly -Monitor. Remains off IS/MMF, had been on stress dose steroids, back down to maintenance PO prednisone. Pseudomonas bacteriuria -Complete Abx course -Hypomagnesemia Lasix stopped, placed on PO MgOx Martin Joseph MD, [facility]
[2022-04-16] MEDS: MAGNESIUM OXIDE 400 MG TAB PO SCH (11:36)
--- NOTE | 2022-04-16 12:53 | R.PN ---
PROGRESS NOTES ENCOUNTER DATE AND TIME: 04/16/2022 12:47 (CDT) NAME BRIANNA NIETO DATE OF : 1990 DATE OF ADMISSION: 04/09/2022 16:39 (CDT) K57.20 Perforated Diverticular [id number] Perforated ViscusCHIEF COMPLAINT: Perforated Diverticular disease SUBJECTIVE: Pt denied any Shortness of Breath. Pt denied any depression. Bed mobility done with supervision assistance. Therapeutic exercises done with independence. VITAL SIGNS Temperature: 98.3 F SBP/DBP: 127/77 Pulse: 96 Resp: 14 MEDICATION ALLERGIES: Toradol Tramadol ENVIRONMENTAL ALLERGIES: - Substance Allergies None Known - Other Allergies None Known NURSING: - Shower allowing shower PRECAUTIONS: - Fall Precaution Bed alarm TABS alarm Wheel chair alarm - Bleeding Risk Lovenox - DVT Risk due to restricted mobility - Skin Breakdown Risk Routine Wound care due to restricted mobility ACTIVITIES OOB only with supervision THERAPIES: - Dietary and Nutrition Adequate Nutrition. Nutritional Education. Nutritional Supplements. - Occupational Therapy Cognitive Retraining. Patient needs Occupational Therapy for a daily minimum of 1.5 hours at least 5 out of 7 days, to improve Activities of Daily Living, including: Eating, Grooming, Bathing, Dressing, Toileting, Toilet Transfers, Community Reintegration, Higher functional activities, Adaptive Equipme nt, Splinting, Household Tasks, and Other activities as determined. Visual Perceptual Training. - Physical Therapy Patient needs Physical Therapy for a daily minimum of 1.5 hours at least 5 out of 7 days, to improve: Mobility, Strengthening, Transfers, Stretching, ROM, Endurance, Ability to manage stairs, Gait, and Balance. PHYSICAL EXAM - Gen Alert and awake Lying in bed No apparent distress Oriented to: person, time, and place - Skin No skin breakdown. Normacephalic - Eyes No abnormalities - ENMT No abnormalities - Neck No abnormalities - CVS RRR - Chest No abnormalities - Abd colostomy in place - GI Non distended Deferred - Rivera catheter - Ext Mild bilateral lower extremity edema. - MSK 4/5 weakness in both lower extremities. - Neuro No focal deficits - Psych Mild depression. ASSESSMENT: Pt. is a 32 yo female of unknown race.On 02/16/2022 she was admitted to [facility] with di agnosis K57.20 Perforated Diverticular disease.Her impairment category is Medically Complex Condition s 17 - Infections (17.1).Pre-morbidly, Pt. was independent/mod-I in Locomotion and Self-Care; and sh e had good Balance, Transfers Control, Self-Care, and Endurance.Currently, she has deficits of Locomo tion, Balance, Transfers Control, Self-Care, and Endurance.Pt. is now referred to [facility] for acute in-patient rehabilitation in order to maximize patient's functional independ ence in activities of daily living, strength, ROM, and mobility.- Rehab Goal Patient has realistic goal of being discharged at assistance level 6-Tiffany to reside at Home with Fam fermin/Relatives. MDM/PLAN: - Physical Therapy Gait dysfunction - to improve, our physical therapists will perform initial evaluation of pt's statu s upon admission and devise an individualized program for Gait Training, and Wheel Chair mobility Inability to transfer - to improve, our physical therapists will perform initial evaluation of pt's status upon admission and devise an individualized program for Bed mobility Need for home safety evaluation - to improve, our physical therapists will perform initial evaluatio n of pt's status upon admission and devise an individualized program for Home Evaluation Need in caregiver upon discharge - to improve, our physical therapists will perform initial evaluati on of pt's status upon admission and devise an individualized program for Caregiver Training New precaution - to improve, our physical therapists will perform initial evaluation of pt's status upon admission and devise an individualized program for Patient precaution education Edema - to improve, our physical therapists will perform initial evaluation of pt's status upon admi ssion and devise an individualized program for Elevation Training, and Lymphedema Therapy Poor balance - to improve, our physical therapists will perform initial evaluation of pt's status up on admission and devise an individualized program for Balance Training Poor endurance - to improve, our physical therapists will perform initial evaluation of pt's status upon admission and devise an individualized program for Endurance Training Weakness - to improve, our physical therapists will perform initial evaluation of pt's status upon a dmission and devise an individualized program for Aquatic Therapy, Neuromuscular Reeducation, and Str engthening Achieving independence - to improve, our physical therapists will perform initial evaluation of pt's status upon admission and devise an individualized program for Community Reintegration Activities - Occupational Therapy ADL deficits - to improve, our occupation therapists will perform initial evaluation of pt's status upon admission and devise an individualized program for Bathing, Bed mobility, Community Reintegratio n, Cooking, Dressing, Eating, Fine Motor Skills, Grooming, Homemaking, Kitchen Mobility, Laundry, Pat ient Education, Safety Awareness, Splinting - Positioning, Transfers(Toilet, Tub, Shower), and Wheel Chair Management Need for home care aide - to improve, our occupation therapists will perform initial evaluation of pt's status upon admission and devise an individualized program for Caregiver Training Weakness - to improve, our occupation therapists will perform initial evaluation of pt's status upon admission and devise an individualized program for Aquatic Therapy, Balance, Endurance, UE ROM, and UE strengthening - Other See attached MAR (Medication Administration Record) - Diet Type Continue Renal - Diet - Liquid Texture Continue Regular - Tube Feed Continue N/A - Bleeding Risk Lovenox - DVT Risk due to restricted mobility - Skin Breakdown Risk Routine Wound care due to restricted mobility - Fall Precaution Bed alarm TABS alarm Wheel chair alarm - Diet - Solid Texture Continue Regular - Shower allowing shower FUNCTIONAL STATUS: UPDATED AT WEEKLY TEAM CONFERENCE - Bladder Same accident frequency: 7-Ind - No accidents in the past 7 days - Bowel Same accident frequency: 7-Ind - No accidents in the past 7 days - Walking Same score based on distance walked: 0(N/A) - Wheelchair Same score based on distance traveled: 0(N/A) FUNCTIONAL STATUS: - Self-Care A. Eating Ind B. Grooming Tiffany C. Bathing modA D. Dressing - Upper Grace E. Dressing - Lower modA F. Toileting sup - Sphincter Control G. Bladder control Grace H. Bowel control Tiffany - Transfers Control I. Bed/Chair/Wheelchair Grace J. Toilet Grace K. Tub/Shower modA - Locomotion L. Walk/Wheelchair (B) Grace M. Stairs maxA - Communication N. Comprehension (B) Tiffany O. Expression (B) Tiffany - Social Cognition P. Social Interaction Ind Q. Problem Solving sup R. Memory Ind - Endurance Fair - Balance Fair - Safety Awareness Fair QI SCORES: - Self-Care A. Eating 04-Supervision or touching assistance B. Oral hygiene 04-Supervision or touching assistance C. Toileting hygiene 01-Dependent E. Shower/bathe self 01-Dependent F. Upper body dressing 03-Partial/moderate assistance G. Lower body dressing 01-Dependent H. Putting on/taking off footwear 01-Dependent - Mobility A. Roll left and right 88-Not attempted due to medical condition or safety concerns B. Sit to lying 01-Dependent C. Lying to sitting on side of bed 01-Dependent D. Sit to stand 88-Not attempted due to medical condition or safety concerns E. Chair/xtt-ef-hodgr transfer 88-Not attempted due to medical condition or safety concerns F. Toilet transfer 88-Not attempted due to medical condition or safety concerns G. Car transfer 88-Not attempted due to medical condition or safety concerns I. Walk 10 feet 88-Not attempted due to medical condition or safety concerns J. Walk 50 feet with two turns 88-Not attempted due to medical condition or safety concerns K. Walk 150 feet 88-Not attempted due to medical condition or safety concerns L. Walking 10 feet on uneven surfaces 88-Not attempted due to medical condition or safety concerns M. 1 step (curb) 88-Not attempted due to medical condition or safety concerns N. 4 steps 88-Not attempted due to medical condition or safety concerns O. 12 steps 88-Not attempted due to medical condition or safety concerns P. Picking up object 88-Not attempted due to medical condition or safety concerns R. Wheel 50 feet with two turns 09-Not applicable S. Wheel 150 feet 09-Not applicable - Bladder and Bowel Bladder continence 9-Not applicable Bowel continence 0-Always continent - Endurance Fair - Balance Poor - Safety Awareness Fair CURRENT FUNC. DEFICITS: Self-Care, Endurance, Balance, Safety Awareness, and Mobility SIGNATURE PANEL: (CDT)
--- NOTE | 2022-04-16 13:29 | PREOPCON ---
Date of Consultation: 04/15/2022 Reason For Consultation: The patient needs Tesio catheter removed. History Of Present Illness: The patient is a 32-year-old female with history of acute renal failure secondary to sepsis. She underwent an exploratory lap and Jennifer's procedure and she was in renal failure at that time about a month ago and I had placed a Tesio catheter for dialysis. She no longer needs dialysis. Her creatinine is a little above 2 and has remained stable and the form setter helper sta diamond that they would like the catheter removed as the patient does not require any dialysis at this ti ia. The patient is awake, alert. No signs or symptoms of infection. Review of Systems: Otherwise unremarkable. Past Medical History: Significant for lupus, hypertension, and anemia. Past Surgical History: Recent exploratory laparotomy with Jennifer's procedure, dialysis catheter in sertion and removal. Allergies: NO ALLERGIES. Social History: Does not smoke or drink. Family History: Noncontributory. Physical Examination: Vital Signs: Stable, afebrile. General: Awake, alert, oriented x3. Head and Neck: No masses. Chest: Clear. Heart: S1, S2. Abdomen: Soft. Extremities: Neurovascularly intact. Neuro: Nonfocal. Laboratory Data: Reviewed. Diagnostic Data: Reviewed. Assessment: A 32-year-old female with multiple medical problems with a history of acute renal failur e, no longer requiring hemodialysis. Recommendations: We will proceed with removal of the Tesio catheter. The patient understands the ri sks, benefits, and alternatives and agrees to procedure. /MODL Voice ID: [id number] Report ID: [id number]
--- NOTE | 2022-04-16 18:38 | PN ---
Subjective: The patient is lying in bed. No new acute event. Chart reviewed. Feels little bit tir ed today . Objective: Vital Signs: Temperature 98, pulse 90, respiration 18, blood pressure 127/77. Lungs: Clear to auscultation. Heart: S1, S2. Regular. Abdomen: Soft. Bowel sounds present. Colostomy bag in place. Surgical wounds noted. Laboratory Data: Shows WBC 13.6, hemoglobin 7.4, platelets are 201. Chemistry shows sodium 147, pot assium 3.6, chloride 116, bicarb 25, BUN 36, creatinine 2.09, glucose is 93. The patient is on cefaz shelli and meropenem. Assessment And Plan: Urinary tract infection secondary to Pseudomonas, currently on meropenem. Mercy l insufficiency improving. Continue supportive care and wound care. We will follow the patient as n eeded. Repeat UA and panculture if the patient spikes fever. NF/MODL Voice ID: [id number] Report ID: [id number]
[2022-04-16] MEDS: FAMOTIDINE 20 MG TAB PO SCH (20:35)
[2022-04-16] MEDS: MIRTAZAPINE 15 MG TAB PO SCH (20:36)
[2022-04-17] MEDS: Meropenem 500 MG in NA CHLORIDE 0.9% 100 ML IV SCH (06:48)
[2022-04-17 06:49] LABS: Hematocrit 21.2 % (36.0-45.0); MCV 80.8 fL (80-100); MPV 7.2 fL (7.6-11.3); RBC Red Blood Cell Count 2.63 M/uL (3.86-4.86)
[2022-04-17] MEDS: HEPARIN 5000 UNIT/ML 1 ML VIAL SQ SCH ×2 (07:18→19:05)
[2022-04-17 07:31] LABS: Anisocytosis 1+; Blood Morphology Comment NOTED (NOT SEEN); Platelet Estimate ADEQ; Polychromasia 1+; Target Cells FEW; Toxic Granulation 1+; White Blood Cell Scan OK (OK)
[2022-04-17] MEDS: ENSURE HIGH PROTEIN 237 ML CAN PO SCH ×2 (07:52→20:00)
[2022-04-17] MEDS: MAGNESIUM OXIDE 400 MG TAB PO SCH (07:52)
[2022-04-17] MEDS: VITAMIN D 5,000 UNIT CAP PO SCH (07:52)
[2022-04-17] MEDS: predniSONE 10 MG TAB PO SCH (07:52)
[2022-04-17] MEDS: METOPROLOL TAR 50 MG TAB PO SCH ×2 (07:52→20:35)
[2022-04-17] MEDS: AMLODIPINE 5 MG TAB PO SCH (07:53)
--- NOTE | 2022-04-17 09:36 | P.RH.PN ---
Estimated Length of Stay: 16 Expected Discharge Date: 04/25/22 Discharge Disposition Plan: Home Family Support: Yes Usp Goal: Mobility, Transfers, Self Care Vital Signs: Last Vital Signs Temp 97.8 F 04/17/22 06:38 Pulse 93 H 04/17/22 07:53 Resp 16 04/17/22 06:38 BP 139/84 04/17/22 07:53 Pulse Ox 98 04/17/22 06:38 Laboratory: Laboratory Last Values WBC 15.70 K/uL (4.3-10.9) H D 04/17/22 06:33 RBC 2.63 M/uL (3.86-4.86) L 04/17/22 06:33 Hgb 7.0 g/dL (12.0-15.0) L 04/17/22 06:33 Hct 21.2 % (36.0-45.0) L 04/17/22 06:33 MCV 80.8 fL (80-100) 04/17/22 06:33 MCH 26.5 pg (27.0-35.0) L 04/17/22 06:33 MCHC 32.8 g/dL (32.0-36.0) 04/17/22 06:33 RDW 16.8 % (12.1-15.2) H 04/17/22 06:33 Plt Count 179 K/uL (152-406) 04/17/22 06:33 MPV 7.2 fL (7.6-11.3) L 04/17/22 06:33 Neutrophils % 75.2 % (41.7-73.7) H 04/17/22 06:33 Lymphocytes % 13.0 % (15.3-44.8) L 04/17/22 06:33 Monocytes % 10.1 % (3.3-12.3) 04/17/22 06:33 Eosinophils % 0.8 % (0-4.4) 04/17/22 06:33 Basophils % 0.9 % (0-1.3) 04/17/22 06:33 Absolute Neutrophils 11.8 K/uL (1.8-8.0) H 04/17/22 06:33 Absolute Lymphocytes 2.0 K/uL (0.7-4.9) 04/17/22 06:33 Absolute Monocytes 1.6 K/uL (0.1-1.3) H 04/17/22 06:33 Absolute Eosinophils 0.1 K/uL (0-0.5) 04/17/22 06:33 Absolute Basophils 0.1 K/uL (0-0.5) 04/17/22 06:33 Toxic Granulation 1+ 04/17/22 06:33 Platelet Estimate Adeq 04/17/22 06:33 Polychromasia 1+ 04/17/22 06:33 Anisocytosis 1+ 04/17/22 06:33 Microcytosis 1+ 04/17/22 06:33 Target Cells Few 04/17/22 06:33 Schistocytes 1+ 04/17/22 06:33 Morphology Comment Noted (NOT SEEN) 04/17/22 06:33 PT 12.7 SECONDS (9.5-12.5) H 04/16/22 03:56 INR 1.15 04/16/22 03:56 APTT 24.0 SECONDS (24.3-36.9) L 04/16/22 03:56 Sodium 147 mmol/L (136-145) H 04/16/22 03:56 Potassium 3.6 mmol/L (3.5-5.1) 04/16/22 03:56 Chloride 116 mmol/L (98-107) H 04/16/22 03:56 Carbon Dioxide 25 mmol/L (21-32) 04/16/22 03:56 Anion Gap 9.6 mEq/L (5.0-15.0) 04/16/22 03:56 BUN 36 mg/dL (7-18) H 04/16/22 03:56 Creatinine 2.09 mg/dL (0.55-1.3) H 04/16/22 03:56 Est GFR (CKD-EPI) 32 ml/min (=/>90) L 04/16/22 03:56 Glucose 93 mg/dL (74-106) 04/16/22 03:56 Lactic Acid 0.7 mmol/L (0.4-2.0) 04/16/22 10:52 Calcium 8.1 mg/dL (8.5-10.1) L 04/16/22 03:56 Phosphorus 3.3 mg/dL (2.5-4.9) 04/16/22 03:56 Magnesium 1.4 mg/dL (1.8-2.4) L* 04/17/22 06:36 Albumin 2.0 g/dL (3.4-5.0) L 04/16/22 03:56 Prealbumin 15.4 mg/dL (20-40) L 04/16/22 03:56 Procalcitonin 1.58 ng/mL (<0.050) H 04/16/22 10:52 Urine Color Yellow (Yellow) 04/10/22 06:10 Urine Clarity Clear (Clear) 04/10/22 06:10 Urine pH 7.0 (5.0-7.0) 04/10/22 06:10 Ur Specific [place] 1.020 (1.005-1.030) 04/10/22 06:10 Glucose (UA)(Auto) Negative (Negative) 04/10/22 06:10 Urine Ketones Negative (Negative) 04/10/22 06:10 Urine Blood 2+ (Negative) H 04/10/22 06:10 Urine Nitrite Negative (Negative) 04/10/22 06:10 Urine Bilirubin Negative (Negative) 04/10/22 06:10 Urine Urobilinogen 0.2 mg/dL (0.2-1.0) 04/10/22 06:10 Ur Leukocyte Esterase 1+ (Negative) H 04/10/22 06:10 Urine RBC 5-10 /HPF (None Seen) H 04/10/22 06:10 Urine Red Cell Clumps Cancelled 04/10/22 05:00 Urine WBC 5-10 /HPF (<5) 04/10/22 06:10 Urine WBC Clumps Cancelled 04/10/22 05:00 Ur Squamous Epith Cells <5 /HPF (None Seen) 04/10/22 06:10 U Non-Squamous Epi Cells Cancelled 04/10/22 05:00 Ur Transition Epith Cell Cancelled 04/10/22 05:00 Ur Renal Epithelial Cell Cancelled 04/10/22 05:00 Calcium Carbonate Cryst Cancelled 04/10/22 05:00 Calcium Oxalate Crystal Cancelled 04/10/22 05:00 Leucine Crystals Cancelled 04/10/22 05:00 Cystine Crystals Cancelled 04/10/22 05:00 Uric Acid Crystals Cancelled 04/10/22 05:00 Triple Phos Crystals Cancelled 04/10/22 05:00 Tyrosine Crystals Cancelled 04/10/22 05:00 Unidentified Crystals Cancelled 04/10/22 05:00 Amorphous Crystals Cancelled 04/10/22 05:00 Urine Bacteria 20-50 /HPF (<20) H 04/10/22 06:10 Hyaline Casts Cancelled 04/10/22 05:00 Granular Casts Cancelled 04/10/22 05:00 Waxy Casts Cancelled 04/10/22 05:00 RBC Casts Cancelled 04/10/22 05:00 WBC Casts Cancelled 04/10/22 05:00 Urine Mucus 1+ /HPF (None Seen) 04/10/22 06:10 Urine Trichomonas Cancelled 04/10/22 05:00 Ur Yeast w Hyphae Cancelled 04/10/22 05:00 Urine Yeast (Budding) Few /HPF (None Seen) H 04/10/22 06:10 Urine Sperm Cancelled 04/10/22 05:00 Ur Oval Fat Bodies Cancelled 04/10/22 05:00 Urine Total Protein 3+ (Negative) H 04/10/22 06:10 Urine Ascorbic Acid Cancelled 04/10/22 05:00 Urine Fat Cancelled 04/10/22 05:00 SARS-CoV-2 Rap RNA(RT-PCR) Negative (NEGATIVE) 04/16/22 03:25 Smear Scan Ok (OK) 04/17/22 06:33 Weight: 197 lb Wound Present: Yes Closed Surgical Incision Present: Yes Negative Pressure Wound Therapy Present: No Physician Update: Elevated WBC, managed by renal. Max assistance with sit to stand, transfers, mod to min assistance with bed mobility. Wheelchair 500' at SBA. Selfcare upper body, and bathing min assitance. Max bhanu for lower body dressing, showering and toilet transfer. Summary: Patient's care plan and correction goals have been reviewed and revised as necessary. Please see the Rehabilitation Signature page for all necessary signatures.
[2022-04-17] MEDS ORDERED: Magnesium Sulfate 2gm IVPB 2 G/50 ML BAG IV ONE (10:19)
--- NOTE | 2022-04-17 10:51 | P.PN ---
Date of Service: 04/17/22 Nephrology (S) Pt's WBC cont to slowly rise, discussed with pt, reviewed midline surgical incision with nurse, there is any area of some greyish purulence discharge but no other wound dehiscence or erythema or other. Vitals, medications, blood work and imaging reviewed in the chart. General: NAD, non tachypnec HEENT: Atraumatic, NC no longer present Neck: Supple, Rt IJ TDC removed. Respiratory: Normal respiratory effort, b/l air entry, no rhonchi Cardiovascular: Not tachy, regular rate and rhythm Gastrointestinal: Surgical incision covered with dressing, colostomy present wit h stoma appearing retracted, abd distention improved Musculoskeletal: No clubbing, No contractures Ext: No sig LE edema Integumentary: No rashes, No cyanosis Neurological: Awake, alert, non encephalopathic, no tremors or myoclonus Labs reviewed in EMR Conclusions/Impression: Stage III ARF last month with presenting Cr level > 4 mg/dl in the setting of hypotension, anemia, sepsis, other likely leading to ATN 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 Last week had stopped ARB and yesterday did d/c scheduled diuretic dose as prior generalized edema i mproved and Na level yesterday > 145, encouraged pt to increase PO fluid intake. Underlying chronic HTN -BP stable currently, avoid relative hypotension, check orthostatic vitals as pt reports feeling equilibrium is off when she attempts to stand. Still not ambulating Acute on chronic anemia related to surgical losses and chronic illnesses including lupus, CKD, other -Multiple transfusions last month, Hb remains < 9, has been hyporesponsive to TANIA likely due to iron deficiency, did order Ferrlecit IV iron doses x 5. Hb down to 7 but will avoid transfusion for now, pt is not complaining for shortness of breath. Repeat H/H tmrw. SLE with lupus nephritis. Leukocytosis had resolved but back up now -Monitor. Remains off IS/MMF, had been on stress dose steroids, back down to maintenance PO prednisone. ID, Dr. Villegas following. May need to add Staph coverage. Will send off swab from midline surgical incision Pseudomonas bacteriuria -Complete Abx course -Hypomagnesemia Lasix stopped, placed on PO MgOx, will administer IV Mg Sulfate today for 1.4 level Martin Joseph MD, [facility]
[2022-04-17] MEDS: MUPIROCIN 2% OINT 22GM TUBE TOP SCH (11:14)
[2022-04-17] MEDS: SOD FERRIC GLUC COMPLX/SUCROSE 125 MG in NA CHLORIDE 0.9% 100 ML IV SCH (12:06)
[2022-04-17] MEDS: POLYETHYL GLY 3350 17 GM/DOSE PO PRN (14:47)
[2022-04-17] MEDS: EPOETIN ALFA 10,000 UNIT/ML VIAL SQ SCH (16:46)
[2022-04-17] MEDS: HYDROCODONE/APAP 7.5/325 MG TAB PO PRN (20:34)
[2022-04-17] MEDS: MIRTAZAPINE 15 MG TAB PO SCH (20:35)
[2022-04-17] MEDS: FAMOTIDINE 20 MG TAB PO SCH (20:35)
[2022-04-18 06:14] LABS: Absolute Lymphocytes (CBC) 2.1 K/uL (0.7-4.9); Hematocrit 21.4 % (36.0-45.0); Lymphocytes % 12.7 % (15.3-44.8); MPV 7.7 fL (7.6-11.3); RBC Red Blood Cell Count 2.64 M/uL (3.86-4.86)
[2022-04-18 06:23] LABS: Albumin 1.9 g/dL (3.4-5.0); Magnesium 1.9 mg/dL (1.8-2.4); Phosphorus 3.8 mg/dL (2.5-4.9); Potassium 3.2 mmol/L (3.5-5.1)
[2022-04-18 07:11] LABS: Anisocytosis 1+; Blood Morphology Comment NOTED (NOT SEEN); Platelet Estimate ADEQ
[2022-04-18 07:12] LABS: Hypochromasia 1+; Poikilocytosis 1+
[2022-04-18] MEDS: HYDROCODONE/APAP 7.5/325 MG TAB PO PRN ×2 (07:25→20:48)
[2022-04-18] MEDS: predniSONE 10 MG TAB PO SCH (07:27)
[2022-04-18] MEDS: METOPROLOL TAR 50 MG TAB PO SCH ×2 (07:28→20:47)
[2022-04-18] MEDS: VITAMIN D 5,000 UNIT CAP PO SCH (07:28)
[2022-04-18] MEDS: HEPARIN 5000 UNIT/ML 1 ML VIAL SQ SCH ×2 (07:30→18:16)
[2022-04-18] MEDS: SOD FERRIC GLUC COMPLX/SUCROSE 125 MG in NA CHLORIDE 0.9% 100 ML IV SCH (07:46)
[2022-04-18] MEDS: AMLODIPINE 5 MG TAB PO SCH (10:16)
[2022-04-18] MEDS: MAGNESIUM OXIDE 400 MG TAB PO SCH (10:17)
[2022-04-18] MEDS: MUPIROCIN 2% OINT 22GM TUBE TOP SCH (10:17)
[2022-04-18] MEDS: ENSURE HIGH PROTEIN 237 ML CAN PO SCH ×2 (10:17→20:00)
[2022-04-18] MEDS ORDERED: POTASSIUM CL SA 10 MEQ TAB PO ONE ×2 (10:30→15:25)
--- NOTE | 2022-04-18 15:35 | P.PN ---
Date of Service: 04/18/22 Nephrology (S) Pt seen resting comfortably, family at beside, no acute complaints, no reports of abd pain or nausea, no fevers. Vitals, medications, blood work and imaging reviewed in the chart. General: NAD, non tachypnec HEENT: Atraumatic, NC no longer present Neck: Supple, Rt IJ TDC removed. Respiratory: Normal respiratory effort, b/l air entry, no rhonchi Cardiovascular: Not tachy, regular rate and rhythm Gastrointestinal: Surgical incision covered with dressing, colostomy present with stoma appearing retracted, abd distention improved Musculoskeletal: No clubbing, No contractures Ext: No sig LE edema Integumentary: No rashes, No cyanosis Neurological: Awake, alert, non encephalopathic, no tremors or myoclonus Labs reviewed in EMR Conclusions/Impression: Stage III ARF last month with presenting Cr level > 4 mg/dl in the setting of hypotension, anemia, sepsis, other likely leading to ATN CKD 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 Last week had stopped ARB and yesterday did d/c scheduled diuretic dose as prior generalized edema improved and Na level earlier in the week was mildly elevated. K level lower today, ordered PO KCL Underlying chronic HTN -BP stable currently, avoid relative hypotension, check orthostatic vitals as pt reports feeling equilibrium is off when she attempts to stand. Still not ambulating Acute on chronic anemia related to surgical losses and chronic illnesses including lupus, CKD, other -Multiple transfusions last month, Hb remains < 9, has been hyporesponsive to TANIA likely due to iron deficiency/inflammation, did order Ferrlecit IV iron doses x 5. Hb down to 7 but will avoid transfusion for now, pt is not complaining for shortness of breath. Will add MVI and Vit C SLE with lupus nephritis. Leukocytosis had resolved but back up now -Monitor. Remains off IS/MMF, had been on stress dose steroids, back down to maintenance PO prednisone. ID, Dr. Villegas following. May need to add Staph coverage. Did send off swab from midline surgical incision Pseudomonas bacteriuria -Complete Abx course -Hypomagnesemia Lasix stopped, placed on PO MgOx, Mg level improved Martin Joseph MD, [facility]
[2022-04-18] MEDS: FAMOTIDINE 20 MG TAB PO SCH (20:47)
[2022-04-18] MEDS: MIRTAZAPINE 15 MG TAB PO SCH (20:47)
[2022-04-19] MEDS: HYDROCODONE/APAP 7.5/325 MG TAB PO PRN ×2 (06:03→15:37)
[2022-04-19] MEDS: HEPARIN 5000 UNIT/ML 1 ML VIAL SQ SCH ×2 (07:37→18:11)
[2022-04-19] MEDS: MUPIROCIN 2% OINT 22GM TUBE TOP SCH (08:00)
[2022-04-19] MEDS: METOPROLOL TAR 50 MG TAB PO SCH ×2 (08:21→20:31)
[2022-04-19] MEDS: AMLODIPINE 5 MG TAB PO SCH (08:22)
[2022-04-19] MEDS: ASCORBIC ACID 500 MG TABLET PO SCH (08:22)
[2022-04-19] MEDS: MULTIVITAMIN TAB PO SCH (08:23)
[2022-04-19] MEDS: MAGNESIUM OXIDE 400 MG TAB PO SCH (08:23)
[2022-04-19] MEDS: predniSONE 10 MG TAB PO SCH (08:23)
[2022-04-19] MEDS: SOD FERRIC GLUC COMPLX/SUCROSE 125 MG in NA CHLORIDE 0.9% 100 ML IV SCH (08:23)
[2022-04-19] MEDS: VITAMIN D 5,000 UNIT CAP PO SCH (08:23)
[2022-04-19] MEDS: ENSURE HIGH PROTEIN 237 ML CAN PO SCH ×2 (09:46→20:00)
[2022-04-19] MEDS: FAMOTIDINE 20 MG TAB PO SCH (20:32)
[2022-04-19] MEDS: MIRTAZAPINE 15 MG TAB PO SCH (20:40)
[2022-04-20 04:57] LABS: RBC Red Blood Cell Count 2.61 M/uL (3.86-4.86)
[2022-04-20 04:58] LABS: Absolute Lymphocytes (CBC) 2.6 K/uL (0.7-4.9); Hematocrit 21.3 % (36.0-45.0); MCV 81.5 fL (80-100); MPV 8.3 fL (7.6-11.3)
[2022-04-20 05:20] LABS: Magnesium 1.8 mg/dL (1.8-2.4); Potassium 3.6 mmol/L (3.5-5.1)
[2022-04-20] MEDS: HYDROCODONE/APAP 7.5/325 MG TAB PO PRN ×3 (07:14→20:32)
[2022-04-20] MEDS: HEPARIN 5000 UNIT/ML 1 ML VIAL SQ SCH (07:21)
[2022-04-20] MEDS: ASCORBIC ACID 500 MG TABLET PO SCH (07:36)
[2022-04-20] MEDS: MAGNESIUM OXIDE 400 MG TAB PO SCH (07:36)
[2022-04-20] MEDS: AMLODIPINE 5 MG TAB PO SCH (07:36)
[2022-04-20] MEDS: ENSURE HIGH PROTEIN 237 ML CAN PO SCH ×2 (07:37→19:25)
[2022-04-20] MEDS: MULTIVITAMIN TAB PO SCH (07:37)
[2022-04-20] MEDS: predniSONE 10 MG TAB PO SCH (07:37)
[2022-04-20] MEDS: MUPIROCIN 2% OINT 22GM TUBE TOP SCH (07:38)
[2022-04-20] MEDS: VITAMIN D 5,000 UNIT CAP PO SCH (07:38)
[2022-04-20] MEDS: METOPROLOL TAR 50 MG TAB PO SCH ×2 (07:39→19:25)
[2022-04-20] MEDS: SOD FERRIC GLUC COMPLX/SUCROSE 125 MG in NA CHLORIDE 0.9% 100 ML IV SCH (09:48)
[2022-04-20] MEDS: NA CHLORIDE 0.9% 250 ML IV SCH ×2 (12:10→18:50)
--- NOTE | 2022-04-20 12:41 | PN ---
Subjective: The patient is being exercised by the Rehab team, not feeling well at this time most lik jazz secondary to exercise. Denies any other problems at this time. No nausea, vomiting, chest pain. Has mild abdominal discomfort and discharge from one of the wounds, which has been culture and grow ing Pseudomonas aeruginosa. Otherwise, vitals are stable. Objective: Vital Signs: Temperature 97.8, pulse 100, respirations 16, blood pressure 152/97. Abdomen: Examination of abdominal wound shows a small amount of discharge, yellowish discharge noted . No other redness or erythematous area surrounding it. Right lower quadrant abdominal wound has he aled and needs no dressing. Laboratory Data: Shows WBC 19.9, hemoglobin 6.8, platelets are 167. Chemistry shows sodium 145, pot assium 3.6, chloride 113, bicarb 25, BUN 25, creatinine 1.5, glucose is 85. Procalcitonin is 1.5. Assessment And Plan: Status post diverticular perforation. The patient is doing better. Leukocytos is possibly reactive versus infectious. We will repeat CT scan of abdomen and pelvis if her white co unt continues to go up. Also recommend to apply Silvadene or silver alginate to the wound site with discharge. We will hold off on the antibiotic at this time as the patient does not have any fever. We will continue following the patient. No other recommendation at this time. NF/MODL Voice ID: [id number] Report ID: [id number]
--- NOTE | 2022-04-20 13:33 | P.PN ---
Date of Service: 04/20/22 Vital Signs Temp Pulse Resp BP Pulse Ox 97.8 F 106 H 16 152/97 H 97 04/20/22 07:39 04/20/22 07:39 04/20/22 12:09 04/20/22 07:39 04/20/22 12:09 Medications Hydrocodone Bitart/Acetaminophen (Hydrocodone/Apap 7.5/325 Mg Tab) 1 tab PO Q4H PRN PRN Reason: Pain scale 8-10 (Severe) Last Admin: 04/20/22 12:09 Dose: 1 tab Amlodipine Besylate (Amlodipine 5 Mg Tab) 5 mg PO 0800 [facility] Last Admin: 04/20/22 07:36 Dose: 5 mg Ascorbic Acid (Ascorbic Acid 500 Mg Tablet) 500 mg PO DAILY [facility] Last Admin: 04/20/22 07:36 Dose: 500 mg Cholecalciferol (Vitamin D 5,000 Unit Cap) 5,000 unit PO DAILY [facility] Last Admin: 04/20/22 07:38 Dose: 5,000 unit Cyclobenzaprine HCl (Cyclobenzaprine 10 Mg Tab) 10 mg PO BIDP PRN PRN Reason: MUSCLE SPASMS Epoetin Toni (Epoetin Toni 10,000 Unit/Ml Vial) 10,000 unit SQ M,W,F [facility] Last Admin: 04/17/22 16:46 Dose: 10,000 unit Famotidine (Famotidine 20 Mg Tab) 20 mg PO BEDTIME [facility]; Protocol Last Admin: 04/19/22 20:32 Dose: 20 mg Heparin Sodium (Porcine) (Heparin 1,000 Unit/Ml Vial) 4,000 unit IV EVERY HD PRN PRN Reason: DIALYSIS CATHETER CARE Sodium Chloride (Sodium Chloride) 250 mls @ 0 mls/hr IV .Q0M [facility] Last Admin: 04/20/22 12:10 Dose: 250 mls Lorazepam (Lorazepam 0.5 Mg Tablet) 0.25 mg PO BID PRN PRN Reason: ANXIETY Magnesium Oxide (Magnesium Oxide 400 Mg Tab) 400 mg PO DAILY [facility] Last Admin: 04/20/22 07:36 Dose: 400 mg Metoprolol Tartrate (Metoprolol Tar 50 Mg Tab) 50 mg PO BID [facility] Last Admin: 04/20/22 07:39 Dose: 50 mg Mirtazapine (Mirtazapine 15 Mg Tab) 15 mg PO BEDTIME [facility] Last Admin: 04/19/22 20:40 Dose: 15 mg Multivitamins/Minerals (Multivitamin Tab) 1 tab PO DAILY [facility] Last Admin: 04/20/22 07:37 Dose: 1 tab Mupirocin (Mupirocin 2% Oint 22gm Tube) 1 appl TOP DAILY [facility] Last Admin: 04/20/22 07:38 Dose: 1 applic Nutritional Formula (Ensure High Protein 237 Ml Can) 237 ml PO BID [facility] Last Admin: 04/20/22 07:37 Dose: 237 ml Polyethylene Glycol (Polyethyl Gly 3350 17 Gm/Dose) 17 gm PO DAILY PRN PRN Reason: CONSTIPATION Last Admin: 04/17/22 14:47 Dose: 17 gm Prednisone (Prednisone 10 Mg Tab) 10 mg PO DAILY [facility] Last Admin: 04/20/22 07:37 Dose: 10 mg Silver Sulfadiazine (Silver Sulfadiazine 1% 50 Gm) 1 appl TOP BID [facility] Simethicone (Simethicone 80 Mg Tab) 80 mg PO Q6H PRN PRN Reason: GAS Lab Results (last 24 hrs) 04/20/22 11:00: ABO/Rh O POSITIVE, Solid Phase Ab Screen Negative, Crossmatch See Detail 04/20/22 04:33: Procalcitonin 1.50 H 04/20/22 04:33: Sodium 145, Potassium 3.6, Chloride 113 H, Carbon Dioxide 25, Anion Gap 10.6, BUN 25 H, Creatinine 1.58 H, Est GFR (CKD-EPI) 44 L, Glucose 85, Calcium 8.2 L, Magnesium 1.8 04/20/22 04:33: WBC 19.90 H D, RBC 2.61 L, Hgb 6.8 L*, Hct 21.3 L, MCV 81.5, MCH 26.0 L, MCHC 31.9 L, RDW 17.8 H, Plt Count 167, MPV 8.3, Neutrophils % 74.6 H, Lymphocytes % 13.0 L, Monocytes % 10.9, Eosinophils % 0.7, Basophils % 0.8, Absolute Neutrophils 14.9 H, Absolute Lymphocytes 2.6, Absolute Monocytes 2.2 H, Absolute Eosinophils 0.1, Absolute Basophils 0.2 Microbiology Results 04/17/22 11:45 Wound - Abdomen Gram Stain - Final 04/17/22 11:45 Wound - Abdomen Culture & Sensitivity - Final Pseudomonas Aeruginosa Gram Neg Jc 04/10/22 05:00 Catheterized Urine [place] Count - Final >100,000 CFU/ML. 04/10/22 05:00 Catheterized Urine - Final Pseudomonas Aeruginosa Assessment/ Plan: Nephrology No dyspnea No chest pain Weakness and fatigue Reports painful menstruation every other week No acute events overnight Vitals, medications, blood work and imaging reviewed in the chart. NAD. NCAT. MMM. Neck supple. Normal respiratory effort. RRR. Abd tender. No C/C/E. No rash. AAO. Normal speech. 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
[2022-04-20] MEDS ORDERED: NA CHLORIDE 0.9% 500 ML ONE (15:56)
[2022-04-20] MEDS ORDERED: NS 0.9% VIAL 20 ML ONE (16:07)
[2022-04-20] MEDS ORDERED: CEFAZOLIN SODIUM 1 GM/VIAL ONE (16:07)
[2022-04-20] MEDS ORDERED: propofoL 200 MG/20 ML VIAL IV ONE (16:09)
[2022-04-20] MEDS ORDERED: MIDAZOLAM HCL 2 MG/2 ML INJ ONE (16:09)
[2022-04-20] MEDS ORDERED: FENTANYL CITR 100 MCG/2 ML ONE (16:09)
[2022-04-20] MEDS ORDERED: NS 0.9% VIAL 10 ML ONE (16:16)
[2022-04-20] MEDS: LIDOCAINE 1% MPF 5 ML VIAL ONE ×2 (16:30→16:41)
[2022-04-20] MEDS ORDERED: LIDOCAINE 1% MPF 30 ML VIAL ONE (16:41)
--- NOTE | 2022-04-20 16:54 | P.OP ---
Date of Service: 04/20/22 Preop diagnosis: Anemia, poor IV access Postop diagnosis: Same Procedure performed: Attempted right IJ right subclavian left IJ central line placement. Placement of left subclavian central line. Surgeon: Filemon Caputo MD Seaman: Sally BECERRIL Estimated blood loss: Minimal Specimen: None Findings: Veins were easily accessed but guidewire could not be safely passedthe right IJ the right subclavian and the left IJ Anesthesia: MAC Complications: None Drains: None Fluids and blood products: Nonapplicable Disposition: Back to rehab Operative note: Patient brought to the recovery room and placed in the supine position. MAC anesthesia begun. Both necks and chest were prepped in a sterile fashion. Lidocaine 1% was utilized as necessary. Then the right IJ vein was accessed with 18-gauge needle. Guidewire was unable to pass beyond approximately 15 cm. Right subclavian vein was accessed and again guidewire was not able to pass 15 centimeters. Patient's O2 sat was 100%. Left IJ was accessed with 18-gauge needle. But, again guidewire could not be passed. Left subclavian vein was then accessed with 18-gauge needle. Guidewire easily passed. Seldinger technique used. Triple-lumen catheter placed to 18 cm. Catheter secured with 3-0 silk. Triple-lumen catheter flushed with heparin and packed with heparin with good blood flow. Sterile dressing applied. Chest x- ray has been ordered. CC:
--- NOTE | 2022-04-20 17:10 | RAD REPORT ---
EXAM DESCRIPTION: RAD - Chest Single View - 04/20/2022 5:03 pm CLINICAL HISTORY: Status post central line placement COMPARISON: Portable March 27 TECHNIQUE: AP portable chest image was obtained 04/20/2022 5:03 pm . FINDINGS: Double-lumen dialysis catheter on the right is no longer present. Left subclavian central line has been placed. Tip is in the mid SVC. No pneumothorax seen. Cardiomediastinal silhouette withi n normal limits. IMPRESSION: Left subclavian line placement with tip in the mid SVC. No pneumothorax.
[2022-04-20 17:37] VITALS: O2SAT 97
--- NOTE | 2022-04-20 17:57 | R.PN ---
PROGRESS NOTES ENCOUNTER DATE AND TIME: 04/20/2022 17:52 (CDT) NAME BRIANNA NIETO DATE OF : 1990 DATE OF ADMISSION: 04/09/2022 16:39 (CDT) K57.20 Perforated Diverticular [id number] Perforated ViscusCHIEF COMPLAINT: Perforated Diverticular disease SUBJECTIVE: Pt denied any Shortness of Breath. Pt denied any depression. Bed mobility and transfers done with total to max assistance. VITAL SIGNS Temperature: 98.0 F SBP/DBP: 131/89 Pulse: 98 Resp: 16 MEDICATION ALLERGIES: Toradol Tramadol ENVIRONMENTAL ALLERGIES: - Substance Allergies None Known - Other Allergies None Known NURSING: - Shower allowing shower PRECAUTIONS: - Fall Precaution Bed alarm TABS alarm Wheel chair alarm - Bleeding Risk Lovenox - DVT Risk due to restricted mobility - Skin Breakdown Risk Routine Wound care due to restricted mobility ACTIVITIES OOB only with supervision THERAPIES: - Dietary and Nutrition Adequate Nutrition. Nutritional Education. Nutritional Supplements. - Occupational Therapy Cognitive Retraining. Patient needs Occupational Therapy for a daily minimum of 1.5 hours at least 5 out of 7 days, to improve Activities of Daily Living, including: Eating, Grooming, Bathing, Dressing, Toileting, Toilet Transfers, Community Reintegration, Higher functional activities, Adaptive Equipme nt, Splinting, Household Tasks, and Other activities as determined. Visual Perceptual Training. - Physical Therapy Patient needs Physical Therapy for a daily minimum of 1.5 hours at least 5 out of 7 days, to improve: Mobility, Strengthening, Transfers, Stretching, ROM, Endurance, Ability to manage stairs, Gait, and Balance. PHYSICAL EXAM - Gen Alert and awake Lying in bed No apparent distress Oriented to: person, time, and place - Skin No skin breakdown. Normacephalic - Eyes No abnormalities - ENMT No abnormalities - Neck No abnormalities - CVS RRR - Chest No abnormalities - Abd colostomy in place - GI Non distended Deferred - Rivera catheter - Ext Mild bilateral lower extremity edema. - MSK 4/5 weakness in both lower extremities. - Neuro No focal deficits - Psych Mild depression. ASSESSMENT: Pt. is a 32 yo female of unknown race.On 02/16/2022 she was admitted to [facility] with di agnosis K57.20 Perforated Diverticular disease.Her impairment category is Medically Complex Condition s 17 - Infections (17.1).Pre-morbidly, Pt. was independent/mod-I in Locomotion and Self-Care; and sh e had good Balance, Transfers Control, Self-Care, and Endurance.Currently, she has deficits of Locomo tion, Balance, Transfers Control, Self-Care, and Endurance.Pt. is now referred to [facility] for acute in-patient rehabilitation in order to maximize patient's functional independ ence in activities of daily living, strength, ROM, and mobility.- Rehab Goal Patient has realistic goal of being discharged at assistance level 6-Tiffany to reside at Home with Fam fermin/Relatives. MDM/PLAN: - Physical Therapy Gait dysfunction - to improve, our physical therapists will perform initial evaluation of pt's statu s upon admission and devise an individualized program for Gait Training, and Wheel Chair mobility Inability to transfer - to improve, our physical therapists will perform initial evaluation of pt's status upon admission and devise an individualized program for Bed mobility Need for home safety evaluation - to improve, our physical therapists will perform initial evaluatio n of pt's status upon admission and devise an individualized program for Home Evaluation Need in caregiver upon discharge - to improve, our physical therapists will perform initial evaluati on of pt's status upon admission and devise an individualized program for Caregiver Training New precaution - to improve, our physical therapists will perform initial evaluation of pt's status upon admission and devise an individualized program for Patient precaution education Edema - to improve, our physical therapists will perform initial evaluation of pt's status upon admi ssion and devise an individualized program for Elevation Training, and Lymphedema Therapy Poor balance - to improve, our physical therapists will perform initial evaluation of pt's status up on admission and devise an individualized program for Balance Training Poor endurance - to improve, our physical therapists will perform initial evaluation of pt's status upon admission and devise an individualized program for Endurance Training Weakness - to improve, our physical therapists will perform initial evaluation of pt's status upon a dmission and devise an individualized program for Aquatic Therapy, Neuromuscular Reeducation, and Str engthening Achieving independence - to improve, our physical therapists will perform initial evaluation of pt's status upon admission and devise an individualized program for Community Reintegration Activities - Occupational Therapy ADL deficits - to improve, our occupation therapists will perform initial evaluation of pt's status upon admission and devise an individualized program for Bathing, Bed mobility, Community Reintegratio n, Cooking, Dressing, Eating, Fine Motor Skills, Grooming, Homemaking, Kitchen Mobility, Laundry, Pat ient Education, Safety Awareness, Splinting - Positioning, Transfers(Toilet, Tub, Shower), and Wheel Chair Management Need for career and technology education teacher - to improve, our occupation therapists will perform initial evaluation of pt's status upon admission and devise an individualized program for Caregiver Training Weakness - to improve, our occupation therapists will perform initial evaluation of pt's status upon admission and devise an individualized program for Aquatic Therapy, Balance, Endurance, UE ROM, and UE strengthening - Other See attached MAR (Medication Administration Record) - Diet Type Continue Renal - Diet - Liquid Texture Continue Regular - Tube Feed Continue N/A - Bleeding Risk Lovenox - DVT Risk due to restricted mobility - Skin Breakdown Risk Routine Wound care due to restricted mobility - Fall Precaution Bed alarm TABS alarm Wheel chair alarm - Diet - Solid Texture Continue Regular - Shower allowing shower FUNCTIONAL STATUS: UPDATED AT WEEKLY TEAM CONFERENCE - Bladder Same accident frequency: 7-Ind - No accidents in the past 7 days - Bowel Same accident frequency: 7-Ind - No accidents in the past 7 days - Walking Same score based on distance walked: 0(N/A) - Wheelchair Same score based on distance traveled: 0(N/A) FUNCTIONAL STATUS: - Self-Care A. Eating Ind B. Grooming Tiffany C. Bathing modA D. Dressing - Upper Grace E. Dressing - Lower modA F. Toileting sup - Sphincter Control G. Bladder control Grace H. Bowel control Tiffany - Transfers Control I. Bed/Chair/Wheelchair Grace J. Toilet Grace K. Tub/Shower modA - Locomotion L. Walk/Wheelchair (B) Grace M. Stairs maxA - Communication N. Comprehension (B) Tiffany O. Expression (B) Tiffany - Social Cognition P. Social Interaction Ind Q. Problem Solving sup R. Memory Ind - Endurance Fair - Balance Fair - Safety Awareness Fair QI SCORES: - Self-Care A. Eating 04-Supervision or touching assistance B. Oral hygiene 04-Supervision or touching assistance C. Toileting hygiene 01-Dependent E. Shower/bathe self 01-Dependent F. Upper body dressing 03-Partial/moderate assistance G. Lower body dressing 01-Dependent H. Putting on/taking off footwear 01-Dependent - Mobility A. Roll left and right 88-Not attempted due to medical condition or safety concerns B. Sit to lying 01-Dependent C. Lying to sitting on side of bed 01-Dependent D. Sit to stand 88-Not attempted due to medical condition or safety concerns E. Chair/[id number] transfer 88-Not attempted due to medical condition or safety concerns F. Toilet transfer 88-Not attempted due to medical condition or safety concerns G. Car transfer 88-Not attempted due to medical condition or safety concerns I. Walk 10 feet 88-Not attempted due to medical condition or safety concerns J. Walk 50 feet with two turns 88-Not attempted due to medical condition or safety concerns K. Walk 150 feet 88-Not attempted due to medical condition or safety concerns L. Walking 10 feet on uneven surfaces 88-Not attempted due to medical condition or safety concerns M. 1 step (curb) 88-Not attempted due to medical condition or safety concerns N. 4 steps 88-Not attempted due to medical condition or safety concerns O. 12 steps 88-Not attempted due to medical condition or safety concerns P. Picking up object 88-Not attempted due to medical condition or safety concerns R. Wheel 50 feet with two turns 09-Not applicable S. Wheel 150 feet 09-Not applicable - Bladder and Bowel Bladder continence 9-Not applicable Bowel continence 0-Always continent - Endurance Fair - Balance Poor - Safety Awareness Fair CURRENT FUNC. DEFICITS: Self-Care, Endurance, Balance, Safety Awareness, and Mobility SIGNATURE PANEL: (CDT)
[2022-04-20] MEDS: EPOETIN ALFA 10,000 UNIT/ML VIAL SQ SCH (18:04)
--- NOTE | 2022-04-20 18:29 | RAD REPORT ---
EXAM DESCRIPTION: US - UPPER EXTREMITY VENOUS BILAT - 04/20/2022 6:18 pm CLINICAL HISTORY: Evaluat BL UE, Jugular, Subclavian venous thrombus COMPARISON: Chest Angio dated 03/19/2022 FINDINGS: Bilateral upper extremity Doppler venous ultrasound with attention directed to the bilater al jugular, subclavian and axillary veins. Patient is status post placement of a left subclavian cent ral line following unsuccessful attempts at right-sided line placement. Right internal jugular vein shows no thrombus within the lumen. Vessel is compressible. Right axillar y and right subclavian veins are patent as well. Left internal jugular vein also fully compressible w ith no thrombus. Left subclavian vein was partially obscured due to bandaging. The visualized portion this clear of thrombus. Left axillary vein is patent. IMPRESSION: Bilateral jugular, subclavian and axillary veins are clear of any identifiable thrombus. No stricture or anatomic abnormalities evident.
[2022-04-20] MEDS: FAMOTIDINE 20 MG TAB PO SCH (19:24)
[2022-04-20] MEDS: SILVER SULFADIAZINE 1% 50 GM TOP SCH (19:24)
[2022-04-20] MEDS: MIRTAZAPINE 15 MG TAB PO SCH (19:25)
--- NOTE | 2022-04-20 20:22 | CON ---
Date of Consultation: 04/20/2022 Reason: Patient needs central line. History Of Present Illness: Patient is a 32-year-old female with multiple medical problems, who was placed a Tesio catheter removed it recently; however, she has hemoglobin of 6.9 and needs dialysis an d has very poor peripheral access, therefore, I was asked to place a central line. The patient is aw robert, alert. No complaint. No fever or chills. Review of Systems: Otherwise unremarkable. Past Medical And Surgical History: See my previous dictation, it is extensive and well detailed in t medical record. Physical Examination: Vital Signs: Stable. She is afebrile. General: She is awake, alert, and oriented x3. Head and Neck: No masses. Chest: Clear. Heart: S1, S2. Abdomen: Soft. Extremities: Neurovascularly intact. Neurologic: Nonfocal. Assessment: Poor IV access requiring central line. Recommendations: We will go ahead and place a central line. The patient understands the risks, bene fits, and alternatives and agrees to procedure. PETRONA/ANTONIO Voice ID: [id number] Report ID: [id number]
[2022-04-21] MEDS ORDERED: NA CHLORIDE 0.9% 250 ML ONE (00:59)
[2022-04-21 06:47] LABS: Absolute Lymphocytes (CBC) 2.3 K/uL (0.7-4.9); Hematocrit 28.9 % (36.0-45.0); Lymphocytes % 11.3 % (15.3-44.8); MCV 83.5 fL (80-100); MPV 8.1 fL (7.6-11.3); RBC Red Blood Cell Count 3.46 M/uL (3.86-4.86)
[2022-04-21 07:04] LABS: Bilirubin Total 0.3 mg/dL (0.2-1.0); Phosphorus 4.1 mg/dL (2.5-4.9); Potassium 3.6 mmol/L (3.5-5.1); Uric Acid 8.9 mg/dL (2.6-6.0)
[2022-04-21 07:05] LABS: Albumin 1.8 g/dL (3.4-5.0); Protein, Total 5.6 g/dL (6.4-8.2)
[2022-04-21] MEDS: HYDROCODONE/APAP 7.5/325 MG TAB PO PRN ×2 (07:17→17:52)
[2022-04-21] MEDS: VITAMIN D 5,000 UNIT CAP PO SCH (08:00)
[2022-04-21] MEDS: ASCORBIC ACID 500 MG TABLET PO SCH (08:52)
[2022-04-21] MEDS: AMLODIPINE 5 MG TAB PO SCH (08:52)
[2022-04-21] MEDS: MULTIVITAMIN TAB PO SCH (08:53)
[2022-04-21] MEDS: METOPROLOL TAR 50 MG TAB PO SCH ×2 (08:53→19:40)
[2022-04-21] MEDS: predniSONE 10 MG TAB PO SCH (08:53)
[2022-04-21] MEDS: MAGNESIUM OXIDE 400 MG TAB PO SCH (08:53)
[2022-04-21] MEDS: SILVER SULFADIAZINE 1% 50 GM TOP SCH ×2 (08:59→19:40)
[2022-04-21] MEDS: MUPIROCIN 2% OINT 22GM TUBE TOP SCH (08:59)
[2022-04-21] MEDS: ENSURE HIGH PROTEIN 237 ML CAN PO SCH ×2 (08:59→19:40)
[2022-04-21] MEDS: CIPROFLOXACIN 400mg IV 400 MG/200 ML BAG IV SCH ×2 (10:14→19:40)
[2022-04-21] MEDS ORDERED: NA CHLORIDE 0.9% 1,000 ML IV SCH (12:00)
--- NOTE | 2022-04-21 14:44 | PN ---
Subjective: The patient lying in bed, not in any acute distress. Denies any headache, nausea, vomit ing, chest pain, abdominal pain, constipation, or diarrhea. Objective: Vital Signs: Temperature 98, pulse 60, respiration 18, blood pressure 148/94. Lungs: Basal crackles. Heart: S1, S2. Regular. Abdomen: Soft. Bowel sounds present. Extremity: Trace edema. Laboratory Data: Shows WBC 20,000, hemoglobin 9.3, platelets are 170. Chemistry shows sodium 144, p otassium 3.6, chloride 113, bicarb 26, BUN is 26, creatinine 1.62. Assessment And Plan: Leukocytosis with history of diverticular perforation and hematoma and abdomina l wound discharge. We will start the patient on Cipro and Flagyl. If leukocytosis does not improve, consider getting CT abdomen and pelvis, repeat blood cultures x2. We will follow the patient closel y. Consider sending the patient to the long-term acute care for further evaluation and management an d continuation of the rehab. NF/MODL Voice ID: [id number] Report ID: [id number]
[2022-04-21 14:56] LABS: Platelet Estimate ADEQ
[2022-04-21 14:57] LABS: Blood Morphology Comment NOTED (NOT SEEN)
[2022-04-21 14:58] LABS: Anisocytosis 1+
[2022-04-21] MEDS: METRONIDAZOLE 500mg IVPB 500 MG/100 ML BAG IV SCH (16:17)
--- NOTE | 2022-04-21 17:41 | P.PN ---
Date of Service: 04/21/22 Vital Signs Temp Pulse Resp BP Pulse Ox 98.2 F 98 H 16 148/94 H 96 04/21/22 08:12 04/21/22 08:53 04/21/22 08:17 04/21/22 08:53 04/21/22 08:17 Medications Hydrocodone Bitart/Acetaminophen (Hydrocodone/Apap 7.5/325 Mg Tab) 1 tab PO Q4H PRN PRN Reason: Pain scale 8-10 (Severe) Last Admin: 04/21/22 07:17 Dose: 1 tab Amlodipine Besylate (Amlodipine 5 Mg Tab) 5 mg PO 0800 ABDI Last Admin: 04/21/22 08:52 Dose: 5 mg Ascorbic Acid (Ascorbic Acid 500 Mg Tablet) 500 mg PO DAILY ABDI Last Admin: 04/21/22 08:52 Dose: 500 mg Cholecalciferol (Vitamin D 5,000 Unit Cap) 5,000 unit PO DAILY ABDI Last Admin: 04/21/22 08:00 Dose: 5,000 unit Cyclobenzaprine HCl (Cyclobenzaprine 10 Mg Tab) 10 mg PO BIDP PRN PRN Reason: MUSCLE SPASMS Epoetin Toni (Epoetin Toni 10,000 Unit/Ml Vial) 10,000 unit SQ M,W,F ABDI Last Admin: 04/20/22 18:04 Dose: 10,000 unit Famotidine (Famotidine 20 Mg Tab) 20 mg PO BEDTIME ABDI; Protocol Last Admin: 04/20/22 19:24 Dose: 20 mg Heparin Sodium (Porcine) (Heparin 1,000 Unit/Ml Vial) 4,000 unit IV EVERY HD PRN PRN Reason: DIALYSIS CATHETER CARE Ciprofloxacin/Dextrose (Cipro 400 Mg/200 Ml Ivpb (Premix)) 400 mg in 200 mls @ 200 mls/hr IV Q12HR ABDI; Protocol Last Admin: 04/21/22 10:14 Dose: 200 mls Metronidazole/Sodium Chloride (Flagyl 500mg/100 Ml Iv Premix) 500 mg in 100 mls @ 200 mls/hr IV Q8HR ABDI; Protocol Last Admin: 04/21/22 16:17 Dose: 100 mls Sodium Chloride (Sodium Chloride 0.45%) 1,000 mls @ 100 mls/hr IV .Q10H ABDI Lorazepam (Lorazepam 0.5 Mg Tablet) 0.25 mg PO BID PRN PRN Reason: ANXIETY Magnesium Oxide (Magnesium Oxide 400 Mg Tab) 400 mg PO DAILY [facility] Last Admin: 04/21/22 08:53 Dose: 400 mg Metoprolol Tartrate (Metoprolol Tar 50 Mg Tab) 100 mg PO BID [facility] Last Admin: 04/21/22 08:53 Dose: 100 mg Mirtazapine (Mirtazapine 15 Mg Tab) 15 mg PO BEDTIME ABDI Last Admin: 04/20/22 19:25 Dose: 15 mg Multivitamins/Minerals (Multivitamin Tab) 1 tab PO DAILY [facility] Last Admin: 04/21/22 08:53 Dose: 1 tab Mupirocin (Mupirocin 2% Oint 22gm Tube) 1 appl TOP DAILY [facility] Last Admin: 04/21/22 08:59 Dose: 1 applic Nutritional Formula (Ensure High Protein 237 Ml Can) 237 ml PO BID [facility] Last Admin: 04/21/22 08:59 Dose: 237 ml Polyethylene Glycol (Polyethyl Gly 3350 17 Gm/Dose) 17 gm PO DAILY PRN PRN Reason: CONSTIPATION Last Admin: 04/17/22 14:47 Dose: 17 gm Potassium Chloride (Potassium Cl Sa 10 Meq Tab) 40 meq PO 1X ONE Stop: 04/21/22 18:01 Prednisone (Prednisone 10 Mg Tab) 10 mg PO DAILY [facility] Last Admin: 04/21/22 08:53 Dose: 10 mg Silver Sulfadiazine (Silver Sulfadiazine 1% 50 Gm) 1 appl TOP BID [facility] Last Admin: 04/21/22 08:59 Dose: 1 appl Simethicone (Simethicone 80 Mg Tab) 80 mg PO Q6H PRN PRN Reason: GAS Lab Results (last 24 hrs) 04/21/22 05:35: Sodium 144, Potassium 3.6, Chloride 113 H, Carbon Dioxide 26, Anion Gap 8.6, BUN 26 H, Creatinine 1.62 H, Est GFR (CKD-EPI) 43 L, Glucose 79, Uric Acid 8.9 H D, Calcium 8.5, Phosphorus 4.1, Magnesium 2.0, Total Bilirubin 0.3, AST 25, ALT 19, Alkaline Phosphatase 167 H, C-Reactive Protein 175.00 H, Serum Total Protein 5.6 L, Albumin 1.8 L, Globulin 3.8 H, Albumin/Globulin Ratio 0.5 L 04/21/22 05:35: WBC 20.40 H*, RBC 3.46 L D, Hgb 9.3 L D, Hct 28.9 L D, MCV 83.5, MCH 27.0, MCHC 32.3, RDW 17.7 H, Plt Count 170, MPV 8.1, Neutrophils % 77.3 H, Lymphocytes % 11.3 L, Monocytes % 9.9, Eosinophils % 0.7, Basophils % 0.8, Absolute Neutrophils 15.8 H, Segmented Neutrophils 76, Absolute Lymphocytes 2.3, Lymphocytes 13 L, Monocytes 9, Absolute Monocytes 2.0 H, Absolute Eosinophils 0.2, Absolute Basophils 0.2, Myelocytes 2 H, Nucleated RBCs 1, Platelet Estimate Adeq, Anisocytosis 1+, Morphology Comment Noted, ESR Westergren 56 H, Absolute Retic 0.11, Percent Retic 3.29 H 04/20/22 11:00: ABO/Rh O POSITIVE, Solid Phase Ab Screen Negative, Crossmatch See Detail Microbiology Results 04/17/22 11:45 Wound - Abdomen Gram Stain - Final 04/17/22 11:45 Wound - Abdomen Culture & Sensitivity - Final Pseudomonas Aeruginosa Gram Neg Jc 04/10/22 05:00 Catheterized Urine [place] Count - Final >100,000 CFU/ML. 04/10/22 05:00 Catheterized Urine - Final Pseudomonas Aeruginosa Assessment/ Plan: Nephrology No dyspnea No chest pain Weakness and fatigue No acute events overnight Vitals, medications, blood work and imaging reviewed in the chart. NAD. NCAT. MMM. Neck supple. Normal respiratory effort. RRR. Abd ND. No C/C/E. No rash. Somnolent. Normal speech. EXAM DESCRIPTION: US - UPPER EXTREMITY VENOUS BILAT - 04/20/2022 6:18 pm CLINICAL HISTORY: Evaluat BL UE, Jugular, Subclavian venous thrombus COMPARISON: Chest Angio dated 03/19/2022 FINDINGS: Bilateral upper extremity Doppler venous ultrasound with attention directed to the bilateral jugular, subclavian and axillary veins. Patient is status post placement of a left subclavian central line following unsuccessful attempts at right-sided line placement. Right internal jugular vein shows no thrombus within the lumen. Vessel is compressible. Right axillary and right subclavian veins are patent as well. Left internal jugular vein also fully compressible with no thrombus. Left subclavian vein was partially obscured due to bandaging. The visualized portion this clear of thrombus. Left axillary vein is patent. IMPRESSION: Bilateral jugular, subclavian and axillary veins are clear of any identifiable thrombus. No stricture or anatomic abnormalities evident. 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 Worsening leukocytosis -ID following and consider a CT for further evaluation -Continue Abx Dysmenorrhea Hx IUD -Workers Compensation Consultant eval pending -Vag US pending
[2022-04-21] MEDS ORDERED: POTASSIUM CL SA 10 MEQ TAB PO ONE (18:00)
[2022-04-21] MEDS: NACHLORIDE 0.45% 1,000 ML IV SCH (18:07)
--- NOTE | 2022-04-21 18:48 | RAD REPORT ---
EXAM DESCRIPTION: US - Transvaginal Study Probe - 04/21/2022 7:40 am CLINICAL HISTORY: Pelvic pain COMPARISON: January 2022 FINDINGS: The uterus measures 8 x 4 x 4 centimeters. An IUD is present within the uterine endometri um. Endometrial stripe normal thickness. 2.5 centimeter hypoechoic structure abuts the right aspect of the uterus. It is uncertain if this rep resents the right ovary or a subserosal fibroid. 4.2 centimeter hypo to isoechoic structure abuts the left aspect of the uterine fundus probably a sub serosal fibroid. Left ovary not seen secondary to overlying bowel gas. Right and left adnexal unremarkable. No significant free fluid IMPRESSION: Uterine fibroids
[2022-04-21] MEDS: MIRTAZAPINE 15 MG TAB PO SCH (19:40)
[2022-04-21] MEDS: POLYETHYL GLY 3350 17 GM/DOSE PO PRN (19:42)
[2022-04-21] MEDS: FAMOTIDINE 20 MG TAB PO SCH (19:42)
--- NOTE | 2022-04-21 20:10 | R.PN ---
PROGRESS NOTES ENCOUNTER DATE AND TIME: 04/21/2022 20:02 (CDT) NAME BRIANNA NIETO DATE OF : 1990 DATE OF ADMISSION: 04/09/2022 16:39 (CDT) K57.20 Perforated Diverticular [id number] Perforated ViscusCHIEF COMPLAINT: Perforated Diverticular disease SUBJECTIVE: Pt denied any Shortness of Breath. Pt denied any depression. Wheelchair mobility 200' with SBA. VITAL SIGNS Temperature: 98.2 F SBP/DBP: 136/89 Pulse: 99 Resp: 16 MEDICATION ALLERGIES: Toradol Tramadol ENVIRONMENTAL ALLERGIES: - Substance Allergies None Known - Other Allergies None Known NURSING: - Shower allowing shower PRECAUTIONS: - Fall Precaution Bed alarm TABS alarm Wheel chair alarm - Bleeding Risk Lovenox - DVT Risk due to restricted mobility - Skin Breakdown Risk Routine Wound care due to restricted mobility ACTIVITIES OOB only with supervision THERAPIES: - Dietary and Nutrition Adequate Nutrition. Nutritional Education. Nutritional Supplements. - Occupational Therapy Cognitive Retraining. Patient needs Occupational Therapy for a daily minimum of 1.5 hours at least 5 out of 7 days, to improve Activities of Daily Living, including: Eating, Grooming, Bathing, Dressing, Toileting, Toilet Transfers, Community Reintegration, Higher functional activities, Adaptive Equipme nt, Splinting, Household Tasks, and Other activities as determined. Visual Perceptual Training. - Physical Therapy Patient needs Physical Therapy for a daily minimum of 1.5 hours at least 5 out of 7 days, to improve: Mobility, Strengthening, Transfers, Stretching, ROM, Endurance, Ability to manage stairs, Gait, and Balance. PHYSICAL EXAM - Gen Alert and awake Lying in bed No apparent distress Oriented to: person, time, and place - Skin No skin breakdown. Normacephalic - Eyes No abnormalities - ENMT No abnormalities - Neck No abnormalities - CVS RRR - Chest No abnormalities - Abd colostomy in place - GI Non distended Deferred - Rivera catheter - Ext Mild bilateral lower extremity edema. - MSK 4/5 weakness in both lower extremities. - Neuro No focal deficits - Psych Mild depression. ASSESSMENT: Pt. is a 32 yo female of unknown race.On 02/16/2022 she was admitted to [facility] OF [facility] with di agnosis K57.20 Perforated Diverticular disease.Her impairment category is Medically Complex Condition s 17 - Infections (17.1).Pre-morbidly, Pt. was independent/mod-I in Locomotion and Self-Care; and sh e had good Balance, Transfers Control, Self-Care, and Endurance.Currently, she has deficits of Locomo tion, Balance, Transfers Control, Self-Care, and Endurance.Pt. is now referred to [facility] for acute in-patient rehabilitation in order to maximize patient's functional independ ence in activities of daily living, strength, ROM, and mobility.- Rehab Goal Patient has realistic goal of being discharged at assistance level 6-Tiffany to reside at Home with Fam fermin/Relatives. MDM/PLAN: - Physical Therapy Gait dysfunction - to improve, our physical therapists will perform initial evaluation of pt's statu s upon admission and devise an individualized program for Gait Training, and Wheel Chair mobility Inability to transfer - to improve, our physical therapists will perform initial evaluation of pt's status upon admission and devise an individualized program for Bed mobility Need for home safety evaluation - to improve, our physical therapists will perform initial evaluatio n of pt's status upon admission and devise an individualized program for Home Evaluation Need in caregiver upon discharge - to improve, our physical therapists will perform initial evaluati on of pt's status upon admission and devise an individualized program for Caregiver Training New precaution - to improve, our physical therapists will perform initial evaluation of pt's status upon admission and devise an individualized program for Patient precaution education Edema - to improve, our physical therapists will perform initial evaluation of pt's status upon admi ssion and devise an individualized program for Elevation Training, and Lymphedema Therapy Poor balance - to improve, our physical therapists will perform initial evaluation of pt's status up on admission and devise an individualized program for Balance Training Poor endurance - to improve, our physical therapists will perform initial evaluation of pt's status upon admission and devise an individualized program for Endurance Training Weakness - to improve, our physical therapists will perform initial evaluation of pt's status upon a dmission and devise an individualized program for Aquatic Therapy, Neuromuscular Reeducation, and Str engthening Achieving independence - to improve, our physical therapists will perform initial evaluation of pt's status upon admission and devise an individualized program for Community Reintegration Activities - Occupational Therapy ADL deficits - to improve, our occupation therapists will perform initial evaluation of pt's status upon admission and devise an individualized program for Bathing, Bed mobility, Community Reintegratio n, Cooking, Dressing, Eating, Fine Motor Skills, Grooming, Homemaking, Kitchen Mobility, Laundry, Pat ient Education, Safety Awareness, Splinting - Positioning, Transfers(Toilet, Tub, Shower), and Wheel Chair Management Need for rn care manager - to improve, our occupation therapists will perform initial evaluation of pt's status upon admission and devise an individualized program for Caregiver Training Weakness - to improve, our occupation therapists will perform initial evaluation of pt's status upon admission and devise an individualized program for Aquatic Therapy, Balance, Endurance, UE ROM, and UE strengthening - Other See attached MAR (Medication Administration Record) - Diet Type Continue Renal - Diet - Liquid Texture Continue Regular - Tube Feed Continue N/A - Bleeding Risk Lovenox - DVT Risk due to restricted mobility - Skin Breakdown Risk Routine Wound care due to restricted mobility - Fall Precaution Bed alarm TABS alarm Wheel chair alarm - Diet - Solid Texture Continue Regular - Shower allowing shower FUNCTIONAL STATUS: UPDATED AT WEEKLY TEAM CONFERENCE - Bladder Same accident frequency: 7-Ind - No accidents in the past 7 days - Bowel Same accident frequency: 7-Ind - No accidents in the past 7 days - Walking Same score based on distance walked: 0(N/A) - Wheelchair Same score based on distance traveled: 0(N/A) FUNCTIONAL STATUS: - Self-Care A. Eating Ind B. Grooming Tiffany C. Bathing modA D. Dressing - Upper Grace E. Dressing - Lower modA F. Toileting sup - Sphincter Control G. Bladder control Grace H. Bowel control Tiffany - Transfers Control I. Bed/Chair/Wheelchair Grace J. Toilet Grace K. Tub/Shower modA - Locomotion L. Walk/Wheelchair (B) Grace M. Stairs maxA - Communication N. Comprehension (B) Tiffany O. Expression (B) Tiffany - Social Cognition P. Social Interaction Ind Q. Problem Solving sup R. Memory Ind - Endurance Fair - Balance Fair - Safety Awareness Fair QI SCORES: - Self-Care A. Eating 04-Supervision or touching assistance B. Oral hygiene 04-Supervision or touching assistance C. Toileting hygiene 01-Dependent E. Shower/bathe self 01-Dependent F. Upper body dressing 03-Partial/moderate assistance G. Lower body dressing 01-Dependent H. Putting on/taking off footwear 01-Dependent - Mobility A. Roll left and right 88-Not attempted due to medical condition or safety concerns B. Sit to lying 01-Dependent C. Lying to sitting on side of bed 01-Dependent D. Sit to stand 88-Not attempted due to medical condition or safety concerns E. Chair/wif-pb-midoa transfer 88-Not attempted due to medical condition or safety concerns F. Toilet transfer 88-Not attempted due to medical condition or safety concerns G. Car transfer 88-Not attempted due to medical condition or safety concerns I. Walk 10 feet 88-Not attempted due to medical condition or safety concerns J. Walk 50 feet with two turns 88-Not attempted due to medical condition or safety concerns K. Walk 150 feet 88-Not attempted due to medical condition or safety concerns L. Walking 10 feet on uneven surfaces 88-Not attempted due to medical condition or safety concerns M. 1 step (curb) 88-Not attempted due to medical condition or safety concerns N. 4 steps 88-Not attempted due to medical condition or safety concerns O. 12 steps 88-Not attempted due to medical condition or safety concerns P. Picking up object 88-Not attempted due to medical condition or safety concerns R. Wheel 50 feet with two turns 09-Not applicable S. Wheel 150 feet 09-Not applicable - Bladder and Bowel Bladder continence 9-Not applicable Bowel continence 0-Always continent - Endurance Fair - Balance Poor - Safety Awareness Fair CURRENT FUNC. DEFICITS: Self-Care, Endurance, Balance, Safety Awareness, and Mobility SIGNATURE PANEL: (CDT)
[2022-04-22] MEDS: METRONIDAZOLE 500mg IVPB 500 MG/100 ML BAG IV SCH ×3 (00:41→16:56)
[2022-04-22 01:41] LABS: UR PROTEIN 396.8 mg/dL (<11.9); Urine Protein/Creatinine Ratio 6.96 ratio (<0.15)
[2022-04-22 02:35] LABS: Specific Gravity 1.013 (1.005-1.030); Urine Bilirubin NEGATIVE (Negative); Urine Blood 1+ (Negative); Urine Clarity Clear (Clear); Urine Color Light-Yellow (Yellow); Urine Glucose NEGATIVE (Negative); Urine Mucus Slight /HPF (None Seen); Urine Protein 3+ (Negative); Urine Urobilinogen Normal (Normal); Urine pH 6.5 (5.0-7.0)
[2022-04-22] MEDS: NACHLORIDE 0.45% 1,000 ML IV SCH (04:34)
[2022-04-22 04:35] LABS: Absolute Lymphocytes (CBC) 2.1 K/uL (0.7-4.9); Hematocrit 27.3 % (36.0-45.0); Lymphocytes % 10.6 % (15.3-44.8); MCV 82.7 fL (80-100); MPV 8.1 fL (7.6-11.3)
[2022-04-22 04:43] LABS: Potassium 4.3 mmol/L (3.5-5.1)
[2022-04-22] MEDS: HYDROCODONE/APAP 7.5/325 MG TAB PO PRN ×3 (08:04→22:51)
[2022-04-22] MEDS: METOPROLOL TAR 50 MG TAB PO SCH ×2 (08:04→20:55)
[2022-04-22] MEDS: VITAMIN D 5,000 UNIT CAP PO SCH (08:08)
[2022-04-22] MEDS: predniSONE 10 MG TAB PO SCH (08:08)
[2022-04-22] MEDS: MAGNESIUM OXIDE 400 MG TAB PO SCH (08:08)
[2022-04-22] MEDS: AMLODIPINE 5 MG TAB PO SCH (08:09)
[2022-04-22] MEDS: MULTIVITAMIN TAB PO SCH (08:09)
[2022-04-22] MEDS: MUPIROCIN 2% OINT 22GM TUBE TOP SCH (09:28)
[2022-04-22] MEDS: ENSURE HIGH PROTEIN 237 ML CAN PO SCH ×2 (09:29→20:00)
[2022-04-22] MEDS: SILVER SULFADIAZINE 1% 50 GM TOP SCH ×2 (09:29→20:56)
[2022-04-22] MEDS: CIPROFLOXACIN 400mg IV 400 MG/200 ML BAG IV SCH ×2 (09:29→20:55)
[2022-04-22] MEDS: ASCORBIC ACID 500 MG TABLET PO SCH (09:30)
--- NOTE | 2022-04-22 11:57 | PN ---
Subjective: The patient lying in bed. Complains of lower back pain. Denies any headache, chest ashley n, abdominal pain, constipation, or diarrhea. Objective: Vital Signs: Temperature 97, pulse 97, respirations 18, blood pressure 153/94. Lungs: Basal crackles. Heart: S1, S2. Regular. Abdomen: Soft. Bowel sounds present. Colostomy bag in place. Laboratory Data: Shows WBC 19.9, hemoglobin 8.9, platelets are 160. Chemistry shows sodium 142, pot assium 4.3, chloride 111, bicarb 25, BUN 27, creatinine 1.6. The patient is currently on Cipro and F lagyl. Assessment And Plan: Leukocytosis, status post diverticular perforation, and hematoma evacuation. W e will continue Cipro and Flagyl at this time. Cultures are pending and negative up to date. If WBC does not come down in couple of days, we will recommend to get a CT abdomen and pelvis with contrast if possible and follow the patient closely. NF/MODL Voice ID: [id number] Report ID: [id number]
--- NOTE | 2022-04-22 12:25 | P.PN ---
Date of Service: 04/22/22 Nephrology (S) Events in recent days noted, pt reports some generalized itching since Abx switched, no rashes noted. Vitals, medications, blood work and imaging reviewed in the chart. General: NAD, non tachypnec HEENT: Atraumatic, NC no longer present Neck: Supple, Rt IJ TDC removed. Respiratory: Normal respiratory effort, b/l air entry, no rhonchi Cardiovascular: Not tachy, regular rate and rhythm Gastrointestinal: Surgical incision covered with dressing, colostomy present with stoma appearing retracted, abd distention improved Musculoskeletal: No clubbing, No contractures Ext: No sig LE edema Integumentary: No rashes, No cyanosis Neurological: Awake, alert, non encephalopathic, no tremors or myoclonus Labs reviewed in EMR Conclusions/Impression: Stage III ARF last month with presenting Cr level > 4 mg/dl in the setting of hypotension, anemia, sepsis, other likely leading to ATN CKD 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 Prev stopped ARB and scheduled diuretic dose as prior generalized edema improved Renal function tests stable, can pursue CT scan with IV contrast if needed, will re-order IVF dacia contrast exposure Underlying chronic HTN -BP stable currently, avoid relative hypotension, check orthostatic vitals as pt reports feeling equilibrium is off when she attempts to stand. Still not ambulating Acute on chronic anemia related to surgical losses and chronic illnesses including lupus, CKD, other -Multiple transfusions last month, Hb remains < 9, has been hyporesponsive to TANIA likely due to iron deficiency/inflammation, did order Ferrlecit IV iron doses x 5. Pt did end up getting a transfusion this week. Did recently add MVI and Vit C SLE with lupus nephritis. Leukocytosis had resolved but back up now -Monitor. Remains off IS/MMF, had been on stress dose steroids, back down to maintenance PO prednisone. Proteinuria present, will re-assess lupus serologic studies and complement levels. Pseudomonas wound culture -Abx per ID, monitor WBC Martin Joseph MD, [facility]
--- NOTE | 2022-04-22 13:15 | P.CNS ---
Date of Consult: 04/22/22 Reason for Consult: Dysmenorrhea Requesting Physician: Reilly Potts Chief Complaint: Dysmenorrhea History of Present Illness: Ms. Mendez is a 32 year old female who was originally admitted in February and has had extended stay. 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 She is now in rehab and gynecology is consulted for dysmenorrhea. Patient had IUD placed in January for contraception before starting chemotherapy for lupus. Prior to this she had no menstrual cycle for 1 year. Now for past few months is having cycles with light to moderate bleeding and dysmenorrhea. She denies any new discharge or foul smelling odor. WBC count has started to trend up and ID was consulted, started abx. She received PRBC transfusion as well. - Past Medical/Surgical History Diabetic: No -: Lupus -: HTN -: Lupus nephritis followed by Dr. Potts -: Anemia -: IUD -: oral surgery -: dialysis catheter and removal - Family History Brother Medical History: Other (see notes) Notes: celiac disease. brain malformation. crohns Father Medical History: Heart disease - Social History Smoking Status: Never smoker Alcohol use: No CD- Drugs: No Caffeine use: Yes Place of Residence: Home <DyllanDuyen - Last Filed: 04/22/22 17:19> <Roxanna Beltran - Last Filed: 05/01/22 16:33> Allergies gabapentin Adverse Reaction (Mild, Verified 04/29/22 10:50) shaky ketorolac [From Toradol] Adverse Reaction (Unknown, Verified 04/10/22 01:31) adverse reaction to lupus, unknown tramadol Adverse Reaction (Unknown, Verified 04/10/22 01:31) adverse reaction to lupus Home Medications: Amlodipine [Norvasc*] 5 mg PO 0800 tab 04/29/22 Ascorbic Acid [Vitamin C with Belia Hips] 500 mg PO DAILY #30 04/29/22 Cyclobenzaprine [Flexeril*] 10 mg PO BIDP PRN tab 04/29/22 Epoetin [Retacrit] 10,000 unit SQ M,W,F vial 04/29/22 Famotidine [Pepcid] 20 mg PO DAILY #30 04/29/22 Ferrous Sulfate [Ferrous Sulfate Elixir*] 5 ml PO BIDWM #300 osyr 04/29/22 Hydrocodone 7.5/APAP 325 [[place] 7.5/325 mg*] 1 tab PO Q4H PRN tab 04/29/22 LORazepam [Ativan*] 0.25 mg PO BID PRN tab 04/29/22 Metoprolol Tartrate [Lopressor*] 100 mg PO BID tab 04/29/22 Mirtazapine [Remeron*] 15 mg PO BEDTIME tab 04/29/22 Polyethyl Gly 3350 [Glycolax*] 17 gm PO DAILY PRN udbot 04/29/22 Silver Sulfadiazine Crm [Silvadene*] 1 appl TOP BID jar 04/29/22 Simethicone [Mylicon*] 80 mg PO Q6H PRN tab 04/29/22 Vit A/Vit D3/Vit E/Vit K1/Zinc [Adek Gummies Plus Zinc] 1 each PO DAILY #30 tab.chew 04/29/22 calcitrioL [Rocaltrol] 0.5 mcg PO DAILY #30 04/29/22 predniSONE [Deltasone*] 10 mg PO DAILY tab 04/29/22 Review of Systems General: Unremarkable Eyes: Unremarkable ENT: Unremarkable Respiratory: Unremarkable Cardiovascular: Unremarkable Gastrointestinal: Unremarkable Genitourinary: Unremarkable Musculoskeletal: Back Pain Integumentary: Unremarkable Neurological: Unremarkable Lymphatics: Unremarkable Other: dysmenorrhea <Duyen Mijares - Last Filed: 04/22/22 17:19> Physical Examination Temp Pulse Resp BP Pulse Ox 97.6 F 97 H 18 153/94 H 96 04/22/22 07:20 04/22/22 08:09 04/22/22 09:04 04/22/22 08:09 04/22/22 09:04 General: Alert, In no apparent distress, Oriented x3 HEENT: Atraumatic, Normocephalic Neck: Supple Cardiovascular: No edema Gastrointestinal: Soft and benign Integumentary: No rashes, No erythema, No warmth Urinary: Rivera catheter External genitalia: No lesions, No masses, Non-tender Other Physical/Emotional Findings: 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 An IUD is present within the uterine endometrium. Endometrial stripe normal thickness. 2.5 centimeter hypoechoic structure abuts the right aspect of the uterus. It is uncertain if this represents the right ovary or a subserosal fibroid. 4.2 centimeter hypo to isoechoic structure abuts the left aspect of the uterine fundus probably a subserosal fibroid. Left ovary not seen secondary to overlying bowel gas. Right and left adnexal unremarkable. No significant free fluid IMPRESSION: Uterine fibroids <Duyen Mijares - Last Filed: 04/22/22 17:19> Temp Pulse Resp BP Pulse Ox 97.8 F 85 18 151/95 H 98 04/29/22 07:52 04/29/22 07:56 04/29/22 13:44 04/29/22 07:56 04/29/22 13:44 <Roxanna Beltran - Last Filed: 05/01/22 16:33> - Problems (1) Dysmenorrhea Status: Acute (2) Acute worsening of stage 4 chronic kidney disease Status: Acute (3) Anemia in chronic kidney disease Status: Acute (4) Bowel perforation Status: Acute (5) Lupus nephritis Status: Acute Conclusions/Impression: 1. Dysmenorrhea: suspect this is related to return of ovulation, possible endometriosis. Do not suspect pelvic infection, (-) CMT no tenderness on pelvic bimanual exam. TVUS findings reviewed, possible fibroid vs ovaries or endometriosis. Leave IUD in place. Depo 150mg injection given today to suppress ovulation. Rec pt to follow up with us on discharge for consideration of endometriosis suppression with elagolix. Explained to patient who is in agreement. 2. AOCD: s/p PRBC transfusion. On procrit. 3. Acute worsening of stage 4 CKD: dialysis per nephrology 4. Lupus: leading to above, managed per primary team 5. Bowel perforation: s/p colostomy 6. Elevated WBC: ID on board, started abx. Trending down today. Do not suspect this is related to IUD or a pelvic infection. Above plan discussed with Dr. Beltran Thank you for the consultation, please call with any questions. <Duyen Mijares - Last Filed: 04/22/22 17:19> Time Spent Managing Pts care (In Minutes): 45 (seen and examined pt with Duyen Mijares PA-C, agree w above note and plan) <Roxanna Beltran - Last Filed: 05/01/22 16:33>
[2022-04-22] MEDS: EPOETIN ALFA 10,000 UNIT/ML VIAL SQ SCH (16:58)
--- NOTE | 2022-04-22 17:49 | R.PN ---
PROGRESS NOTES ENCOUNTER DATE AND TIME: 04/22/2022 17:44 (CDT) NAME BRIANNA NIETO DATE OF : 1990 DATE OF ADMISSION: 04/09/2022 16:39 (CDT) K57.20 Perforated Diverticular [id number] Perforated ViscusCHIEF COMPLAINT: Perforated Diverticular disease SUBJECTIVE: Pt denied any Shortness of Breath. Pt denied any depression. Therapeutic exercises done with moderate assistance. VITAL SIGNS Temperature: 97.6 F SBP/DBP: 153/94 Pulse: 97 Resp: 16 MEDICATION ALLERGIES: Toradol Tramadol ENVIRONMENTAL ALLERGIES: - Substance Allergies None Known - Other Allergies None Known NURSING: - Shower allowing shower PRECAUTIONS: - Fall Precaution Bed alarm TABS alarm Wheel chair alarm - Bleeding Risk Lovenox - DVT Risk due to restricted mobility - Skin Breakdown Risk Routine Wound care due to restricted mobility ACTIVITIES OOB only with supervision THERAPIES: - Dietary and Nutrition Adequate Nutrition. Nutritional Education. Nutritional Supplements. - Occupational Therapy Cognitive Retraining. Patient needs Occupational Therapy for a daily minimum of 1.5 hours at least 5 out of 7 days, to improve Activities of Daily Living, including: Eating, Grooming, Bathing, Dressing, Toileting, Toilet Transfers, Community Reintegration, Higher functional activities, Adaptive Equipme nt, Splinting, Household Tasks, and Other activities as determined. Visual Perceptual Training. - Physical Therapy Patient needs Physical Therapy for a daily minimum of 1.5 hours at least 5 out of 7 days, to improve: Mobility, Strengthening, Transfers, Stretching, ROM, Endurance, Ability to manage stairs, Gait, and Balance. PHYSICAL EXAM - Gen Alert and awake Lying in bed No apparent distress Oriented to: person, time, and place - Skin No skin breakdown. Normacephalic - Eyes No abnormalities - ENMT No abnormalities - Neck No abnormalities - CVS RRR - Chest No abnormalities - Abd colostomy in place - GI Non distended Deferred - Rivera catheter - Ext Mild bilateral lower extremity edema. - MSK 4/5 weakness in both lower extremities. - Neuro No focal deficits - Psych Mild depression. ASSESSMENT: Pt. is a 32 yo female of unknown race.On 02/16/2022 she was admitted to [facility] with di agnosis K57.20 Perforated Diverticular disease.Her impairment category is Medically Complex Condition s 17 - Infections (17.1).Pre-morbidly, Pt. was independent/mod-I in Locomotion and Self-Care; and sh e had good Balance, Transfers Control, Self-Care, and Endurance.Currently, she has deficits of Locomo tion, Balance, Transfers Control, Self-Care, and Endurance.Pt. is now referred to [facility] for acute in-patient rehabilitation in order to maximize patient's functional independ ence in activities of daily living, strength, ROM, and mobility.- Rehab Goal Patient has realistic goal of being discharged at assistance level 6-Tiffany to reside at Home with Fam fermin/Relatives. MDM/PLAN: - Physical Therapy Gait dysfunction - to improve, our physical therapists will perform initial evaluation of pt's statu s upon admission and devise an individualized program for Gait Training, and Wheel Chair mobility Inability to transfer - to improve, our physical therapists will perform initial evaluation of pt's status upon admission and devise an individualized program for Bed mobility Need for home safety evaluation - to improve, our physical therapists will perform initial evaluatio n of pt's status upon admission and devise an individualized program for Home Evaluation Need in caregiver upon discharge - to improve, our physical therapists will perform initial evaluati on of pt's status upon admission and devise an individualized program for Caregiver Training New precaution - to improve, our physical therapists will perform initial evaluation of pt's status upon admission and devise an individualized program for Patient precaution education Edema - to improve, our physical therapists will perform initial evaluation of pt's status upon admi ssion and devise an individualized program for Elevation Training, and Lymphedema Therapy Poor balance - to improve, our physical therapists will perform initial evaluation of pt's status up on admission and devise an individualized program for Balance Training Poor endurance - to improve, our physical therapists will perform initial evaluation of pt's status upon admission and devise an individualized program for Endurance Training Weakness - to improve, our physical therapists will perform initial evaluation of pt's status upon a dmission and devise an individualized program for Aquatic Therapy, Neuromuscular Reeducation, and Str engthening Achieving independence - to improve, our physical therapists will perform initial evaluation of pt's status upon admission and devise an individualized program for Community Reintegration Activities - Occupational Therapy ADL deficits - to improve, our occupation therapists will perform initial evaluation of pt's status upon admission and devise an individualized program for Bathing, Bed mobility, Community Reintegratio n, Cooking, Dressing, Eating, Fine Motor Skills, Grooming, Homemaking, Kitchen Mobility, Laundry, Pat ient Education, Safety Awareness, Splinting - Positioning, Transfers(Toilet, Tub, Shower), and Wheel Chair Management Need for palliative care nurse - to improve, our occupation therapists will perform initial evaluation of pt's status upon admission and devise an individualized program for Caregiver Training Weakness - to improve, our occupation therapists will perform initial evaluation of pt's status upon admission and devise an individualized program for Aquatic Therapy, Balance, Endurance, UE ROM, and UE strengthening - Other See attached MAR (Medication Administration Record) - Diet Type Continue Renal - Diet - Liquid Texture Continue Regular - Tube Feed Continue N/A - Bleeding Risk Lovenox - DVT Risk due to restricted mobility - Skin Breakdown Risk Routine Wound care due to restricted mobility - Fall Precaution Bed alarm TABS alarm Wheel chair alarm - Diet - Solid Texture Continue Regular - Shower allowing shower FUNCTIONAL STATUS: UPDATED AT WEEKLY TEAM CONFERENCE - Bladder Same accident frequency: 7-Ind - No accidents in the past 7 days - Bowel Same accident frequency: 7-Ind - No accidents in the past 7 days - Walking Same score based on distance walked: 0(N/A) - Wheelchair Same score based on distance traveled: 0(N/A) FUNCTIONAL STATUS: - Self-Care A. Eating Ind B. Grooming Tiffany C. Bathing modA D. Dressing - Upper Grace E. Dressing - Lower modA F. Toileting sup - Sphincter Control G. Bladder control Grace H. Bowel control Tiffany - Transfers Control I. Bed/Chair/Wheelchair Grace J. Toilet Grace K. Tub/Shower modA - Locomotion L. Walk/Wheelchair (B) Grace M. Stairs maxA - Communication N. Comprehension (B) Tiffany O. Expression (B) Tiffany - Social Cognition P. Social Interaction Ind Q. Problem Solving sup R. Memory Ind - Endurance Fair - Balance Fair - Safety Awareness Fair QI SCORES: - Self-Care A. Eating 04-Supervision or touching assistance B. Oral hygiene 04-Supervision or touching assistance C. Toileting hygiene 01-Dependent E. Shower/bathe self 01-Dependent F. Upper body dressing 03-Partial/moderate assistance G. Lower body dressing 01-Dependent H. Putting on/taking off footwear 01-Dependent - Mobility A. Roll left and right 88-Not attempted due to medical condition or safety concerns B. Sit to lying 01-Dependent C. Lying to sitting on side of bed 01-Dependent D. Sit to stand 88-Not attempted due to medical condition or safety concerns E. Chair/[id number] transfer 88-Not attempted due to medical condition or safety concerns F. Toilet transfer 88-Not attempted due to medical condition or safety concerns G. Car transfer 88-Not attempted due to medical condition or safety concerns I. Walk 10 feet 88-Not attempted due to medical condition or safety concerns J. Walk 50 feet with two turns 88-Not attempted due to medical condition or safety concerns K. Walk 150 feet 88-Not attempted due to medical condition or safety concerns L. Walking 10 feet on uneven surfaces 88-Not attempted due to medical condition or safety concerns M. 1 step (curb) 88-Not attempted due to medical condition or safety concerns N. 4 steps 88-Not attempted due to medical condition or safety concerns O. 12 steps 88-Not attempted due to medical condition or safety concerns P. Picking up object 88-Not attempted due to medical condition or safety concerns R. Wheel 50 feet with two turns 09-Not applicable S. Wheel 150 feet 09-Not applicable - Bladder and Bowel Bladder continence 9-Not applicable Bowel continence 0-Always continent - Endurance Fair - Balance Poor - Safety Awareness Fair [facility]IC[facility]: Self-Care, Endurance, Balance, Safety Awareness, and Mobility SIGNATURE PANEL: (CDT)
[2022-04-22] MEDS: MIRTAZAPINE 15 MG TAB PO SCH (20:56)
[2022-04-22] MEDS: FAMOTIDINE 20 MG TAB PO SCH (20:56)
[2022-04-23] MEDS: METRONIDAZOLE 500mg IVPB 500 MG/100 ML BAG IV SCH ×3 (01:57→16:52)
[2022-04-23 04:36] LABS: Absolute Lymphocytes (CBC) 2.2 K/uL (0.7-4.9); Hematocrit 28.6 % (36.0-45.0); Lymphocytes % 10.8 % (15.3-44.8); MCV 82.7 fL (80-100); MPV 8.1 fL (7.6-11.3); RBC Red Blood Cell Count 3.46 M/uL (3.86-4.86)
[2022-04-23 05:10] LABS: Albumin 1.9 g/dL (3.4-5.0); Magnesium 1.8 mg/dL (1.8-2.4); Potassium 4.1 mmol/L (3.5-5.1); Prealbumin 13.9 mg/dL (20-40)
[2022-04-23 05:41] LABS: Blood Morphology Comment NOTED (NOT SEEN); Platelet Estimate ADEQ; Polychromasia 2+
[2022-04-23] MEDS: CIPROFLOXACIN 400mg IV 400 MG/200 ML BAG IV SCH ×2 (07:36→19:39)
[2022-04-23] MEDS: AMLODIPINE 5 MG TAB PO SCH (08:30)
[2022-04-23] MEDS: VITAMIN D 5,000 UNIT CAP PO SCH (08:30)
[2022-04-23] MEDS: predniSONE 10 MG TAB PO SCH (08:30)
[2022-04-23] MEDS: MULTIVITAMIN TAB PO SCH (08:30)
[2022-04-23] MEDS: ASCORBIC ACID 500 MG TABLET PO SCH (08:31)
[2022-04-23] MEDS: MAGNESIUM OXIDE 400 MG TAB PO SCH (08:31)
[2022-04-23] MEDS: METOPROLOL TAR 50 MG TAB PO SCH ×2 (08:31→19:40)
[2022-04-23] MEDS: ENSURE HIGH PROTEIN 237 ML CAN PO SCH ×2 (08:32→19:40)
[2022-04-23] MEDS: LIDOCAINE 4% PATCH TOP SCH (10:08)
[2022-04-23] MEDS: MUPIROCIN 2% OINT 22GM TUBE TOP SCH (10:08)
[2022-04-23] MEDS: SILVER SULFADIAZINE 1% 50 GM TOP SCH ×2 (10:08→19:39)
[2022-04-23] MEDS: POLYETHYL GLY 3350 17 GM/DOSE PO PRN (10:14)
--- NOTE | 2022-04-23 12:05 | P.PN ---
Date of Service: 04/23/22 Nephrology (S) STAFF TECHNOLOGIST note reviewed, latest labs reviewed and discussed with pt, no other acute events Vitals, medications, blood work and imaging reviewed in the chart. General: NAD, non tachypnec HEENT: Atraumatic, NC no longer present Neck: Supple, Rt IJ TDC removed. Respiratory: Normal respiratory effort, b/l air entry, no rhonchi Cardiovascular: Not tachy, regular rate and rhythm Gastrointestinal: Surgical incision covered with dressing, colostomy present with stoma appearing retracted, abd distention improved Musculoskeletal: No clubbing, No contractures Ext: No sig LE edema Integumentary: No rashes, No cyanosis Neurological: Awake, alert, non encephalopathic, no tremors or myoclonus Labs reviewed in EMR Conclusions/Impression: Stage III ARF last month with presenting Cr level > 4 mg/dl in the setting of hypotension, anemia, sepsis, other likely leading to ATN CKD Stage IIIb/IV underlying with proteinuria due to Lupus nephritis -Cr level has significantly downward trended off HD, pt has been off HD for > 2 week, therefore TDC removed last month and Cr level now better than prev baseline. Prev stopped ARB and scheduled diuretic dose as prior generalized edema improved Renal function tests stable for the most part although surprisingly Cr level marginally higher despite IVF admin, nonetheless can pursue CT scan with IV contrast if needed, will re-order IVF dacia contrast exposure Underlying chronic HTN -BP stable currently, avoid relative hypotension, check orthostatic vitals as pt reports feeling equilibrium is off when she attempts to stand. Still not ambulating Acute on chronic anemia related to surgical losses and chronic illnesses including lupus, CKD, other -Multiple transfusions last month, Hb remains < 9, has been hyporesponsive to TANIA likely due to iron deficiency/inflammation, did order Ferrlecit IV iron doses x 5 last week. Pt did end up getting a transfusion this week. Did recently add MVI and Vit C SLE with lupus nephritis. -Monitor. Remains off IS/MMF, had been on stress dose steroids, back down to maintenance PO prednisone. Proteinuria present with Up/c in the nephrotic range, will re-assess lupus serologic studies and complement levels (latter normal, former pending). Pseudomonas wound culture -Abx per ID, monitor WBC Martin Joseph MD, [facility]
[2022-04-23] MEDS ORDERED: TRAMADOL HCL 50 MG TAB PO PRN (12:28)
[2022-04-23] MEDS: GABAPENTIN 300 MG CAP PO SCH ×3 (13:13→20:00)
--- NOTE | 2022-04-23 19:00 | R.PN ---
PROGRESS NOTES ENCOUNTER DATE AND TIME: 04/23/2022 18:47 (CDT) NAME BRIANNA NIETO DATE OF : 1990 DATE OF ADMISSION: 04/09/2022 16:39 (CDT) K57.20 Perforated Diverticular [id number] Perforated ViscusCHIEF COMPLAINT: Perforated Diverticular disease SUBJECTIVE: Pt denied any Shortness of Breath. Pt denied any depression. Therapeutic exercises done with moderate assistance. Transfers done with max assistance using the Shana lift. Bed mobility done with moderate assistance. VITAL SIGNS Temperature: 97.0 F SBP/DBP: 140/88 Pulse: 97 Resp: 16 MEDICATION ALLERGIES: Toradol Tramadol ENVIRONMENTAL ALLERGIES: - Substance Allergies None Known - Other Allergies None Known NURSING: - Shower allowing shower PRECAUTIONS: - Fall Precaution Bed alarm TABS alarm Wheel chair alarm - Bleeding Risk Lovenox - DVT Risk due to restricted mobility - Skin Breakdown Risk Routine Wound care due to restricted mobility ACTIVITIES OOB only with supervision THERAPIES: - Dietary and Nutrition Adequate Nutrition. Nutritional Education. Nutritional Supplements. - Occupational Therapy Cognitive Retraining. Patient needs Occupational Therapy for a daily minimum of 1.5 hours at least 5 out of 7 days, to improve Activities of Daily Living, including: Eating, Grooming, Bathing, Dressing, Toileting, Toilet Transfers, Community Reintegration, Higher functional activities, Adaptive Equipme nt, Splinting, Household Tasks, and Other activities as determined. Visual Perceptual Training. - Physical Therapy Patient needs Physical Therapy for a daily minimum of 1.5 hours at least 5 out of 7 days, to improve: Mobility, Strengthening, Transfers, Stretching, ROM, Endurance, Ability to manage stairs, Gait, and Balance. PHYSICAL EXAM - Gen Alert and awake Lying in bed No apparent distress Oriented to: person, time, and place - Skin No skin breakdown. Normacephalic - Eyes No abnormalities - ENMT No abnormalities - Neck No abnormalities - CVS RRR - Chest No abnormalities - Abd colostomy in place - GI Non distended Deferred - Rivera catheter - Ext Mild bilateral lower extremity edema. - MSK 4/5 weakness in both lower extremities. - Neuro No focal deficits - Psych Mild depression. ASSESSMENT: Pt. is a 32 yo female of unknown race.On 02/16/2022 she was admitted to [facility] with di agnosis K57.20 Perforated Diverticular disease.Her impairment category is Medically Complex Condition s 17 - Infections (17.1).Pre-morbidly, Pt. was independent/mod-I in Locomotion and Self-Care; and sh e had good Balance, Transfers Control, Self-Care, and Endurance.Currently, she has deficits of Locomo tion, Balance, Transfers Control, Self-Care, and Endurance.Pt. is now referred to [facility] for acute in-patient rehabilitation in order to maximize patient's functional independ ence in activities of daily living, strength, ROM, and mobility.- Rehab Goal Patient has realistic goal of being discharged at assistance level 6-Tiffany to reside at Home with Fam fermin/Relatives. MDM/PLAN: - Physical Therapy Gait dysfunction - to improve, our physical therapists will perform initial evaluation of pt's statu s upon admission and devise an individualized program for Gait Training, and Wheel Chair mobility Inability to transfer - to improve, our physical therapists will perform initial evaluation of pt's status upon admission and devise an individualized program for Bed mobility Need for home safety evaluation - to improve, our physical therapists will perform initial evaluatio n of pt's status upon admission and devise an individualized program for Home Evaluation Need in caregiver upon discharge - to improve, our physical therapists will perform initial evaluati on of pt's status upon admission and devise an individualized program for Caregiver Training New precaution - to improve, our physical therapists will perform initial evaluation of pt's status upon admission and devise an individualized program for Patient precaution education Edema - to improve, our physical therapists will perform initial evaluation of pt's status upon admi ssion and devise an individualized program for Elevation Training, and Lymphedema Therapy Poor balance - to improve, our physical therapists will perform initial evaluation of pt's status up on admission and devise an individualized program for Balance Training Poor endurance - to improve, our physical therapists will perform initial evaluation of pt's status upon admission and devise an individualized program for Endurance Training Weakness - to improve, our physical therapists will perform initial evaluation of pt's status upon a dmission and devise an individualized program for Aquatic Therapy, Neuromuscular Reeducation, and Str engthening Achieving independence - to improve, our physical therapists will perform initial evaluation of pt's status upon admission and devise an individualized program for Community Reintegration Activities - Occupational Therapy ADL deficits - to improve, our occupation therapists will perform initial evaluation of pt's status upon admission and devise an individualized program for Bathing, Bed mobility, Community Reintegratio n, Cooking, Dressing, Eating, Fine Motor Skills, Grooming, Homemaking, Kitchen Mobility, Laundry, Pat ient Education, Safety Awareness, Splinting - Positioning, Transfers(Toilet, Tub, Shower), and Wheel Chair Management Need for healthcare corporate account director - to improve, our occupation therapists will perform initial evaluation of pt's status upon admission and devise an individualized program for Caregiver Training Weakness - to improve, our occupation therapists will perform initial evaluation of pt's status upon admission and devise an individualized program for Aquatic Therapy, Balance, Endurance, UE ROM, and UE strengthening - Other See attached MAR (Medication Administration Record) - Diet Type Continue Renal - Diet - Liquid Texture Continue Regular - Tube Feed Continue N/A - Bleeding Risk Lovenox - DVT Risk due to restricted mobility - Skin Breakdown Risk Routine Wound care due to restricted mobility - Fall Precaution Bed alarm TABS alarm Wheel chair alarm - Diet - Solid Texture Continue Regular - Shower allowing shower FUNCTIONAL STATUS: UPDATED AT WEEKLY TEAM CONFERENCE - Bladder Same accident frequency: 7-Ind - No accidents in the past 7 days - Bowel Same accident frequency: 7-Ind - No accidents in the past 7 days - Walking Same score based on distance walked: 0(N/A) - Wheelchair Same score based on distance traveled: 0(N/A) FUNCTIONAL STATUS: - Self-Care A. Eating Ind B. Grooming Tiffany C. Bathing modA D. Dressing - Upper Grace E. Dressing - Lower modA F. Toileting sup - Sphincter Control G. Bladder control Grace H. Bowel control Tiffany - Transfers Control I. Bed/Chair/Wheelchair Grace J. Toilet Grace K. Tub/Shower modA - Locomotion L. Walk/Wheelchair (B) Garce M. Stairs maxA - Communication N. Comprehension (B) Tiffany O. Expression (B) Tiffany - Social Cognition P. Social Interaction Ind Q. Problem Solving sup R. Memory Ind - Endurance Fair - Balance Fair - Safety Awareness Fair QI SCORES: - Self-Care A. Eating 04-Supervision or touching assistance B. Oral hygiene 04-Supervision or touching assistance C. Toileting hygiene 01-Dependent E. Shower/bathe self 01-Dependent F. Upper body dressing 03-Partial/moderate assistance G. Lower body dressing 01-Dependent H. Putting on/taking off footwear 01-Dependent - Mobility A. Roll left and right 88-Not attempted due to medical condition or safety concerns B. Sit to lying 01-Dependent C. Lying to sitting on side of bed 01-Dependent D. Sit to stand 88-Not attempted due to medical condition or safety concerns E. Chair/boe-fp-monoo transfer 88-Not attempted due to medical condition or safety concerns F. Toilet transfer 88-Not attempted due to medical condition or safety concerns G. Car transfer 88-Not attempted due to medical condition or safety concerns I. Walk 10 feet 88-Not attempted due to medical condition or safety concerns J. Walk 50 feet with two turns 88-Not attempted due to medical condition or safety concerns K. Walk 150 feet 88-Not attempted due to medical condition or safety concerns L. Walking 10 feet on uneven surfaces 88-Not attempted due to medical condition or safety concerns M. 1 step (curb) 88-Not attempted due to medical condition or safety concerns N. 4 steps 88-Not attempted due to medical condition or safety concerns O. 12 steps 88-Not attempted due to medical condition or safety concerns P. Picking up object 88-Not attempted due to medical condition or safety concerns R. Wheel 50 feet with two turns 09-Not applicable S. Wheel 150 feet 09-Not applicable - Bladder and Bowel Bladder continence 9-Not applicable Bowel continence 0-Always continent - Endurance Fair - Balance Poor - Safety Awareness Fair CURRENT [facility]. DEFICITS: Self-Care, Endurance, Balance, Safety Awareness, and Mobility SIGNATURE PANEL: (CDT)
[2022-04-23] MEDS: FAMOTIDINE 20 MG TAB PO SCH (19:39)
[2022-04-23] MEDS: MIRTAZAPINE 15 MG TAB PO SCH (19:40)
[2022-04-24] MEDS: METRONIDAZOLE 500mg IVPB 500 MG/100 ML BAG IV SCH ×3 (00:09→17:14)
[2022-04-24] MEDS: METOPROLOL TAR 50 MG TAB PO SCH ×2 (08:00→20:57)
[2022-04-24] MEDS: predniSONE 10 MG TAB PO SCH (08:00)
[2022-04-24] MEDS: VITAMIN D 5,000 UNIT CAP PO SCH (08:00)
[2022-04-24] MEDS: MUPIROCIN 2% OINT 22GM TUBE TOP SCH (08:00)
[2022-04-24] MEDS: MULTIVITAMIN TAB PO SCH (08:00)
[2022-04-24] MEDS: GABAPENTIN 300 MG CAP PO SCH (08:00)
[2022-04-24] MEDS: AMLODIPINE 5 MG TAB PO SCH (08:00)
[2022-04-24] MEDS: ASCORBIC ACID 500 MG TABLET PO SCH (08:00)
[2022-04-24] MEDS: MAGNESIUM OXIDE 400 MG TAB PO SCH (08:00)
[2022-04-24] MEDS: SILVER SULFADIAZINE 1% 50 GM TOP SCH ×2 (09:20→21:00)
[2022-04-24] MEDS: CIPROFLOXACIN 400mg IV 400 MG/200 ML BAG IV SCH (09:20)
[2022-04-24] MEDS: LIDOCAINE 4% PATCH TOP SCH (09:20)
[2022-04-24] MEDS: ENSURE HIGH PROTEIN 237 ML CAN PO SCH ×3 (10:39→20:57)
[2022-04-24] MEDS: Ringers Lactate 1,000 ML IV SCH (13:00)
--- NOTE | 2022-04-24 13:47 | P.RH.PN ---
Estimated Length of Stay: 14 Expected Discharge Date: 04/30/22 Discharge Disposition Plan: Nursing Home Facility Family Support: Yes Long-Term Goal: Mobility, Transfers, Self Care Vital Signs: Last Vital Signs Temp 97.8 F 04/24/22 08:41 Pulse 94 H 04/24/22 08:41 Resp 14 04/24/22 08:41 BP 148/93 H 04/24/22 08:41 Pulse Ox 98 04/24/22 08:41 Laboratory: Laboratory Last Values WBC 20.20 K/uL (4.3-10.9) H* 04/23/22 04:10 RBC 3.46 M/uL (3.86-4.86) L 04/23/22 04:10 Hgb 9.4 g/dL (12.0-15.0) L 04/23/22 04:10 Hct 28.6 % (36.0-45.0) L 04/23/22 04:10 MCV 82.7 fL (80-100) 04/23/22 04:10 MCH 27.1 pg (27.0-35.0) 04/23/22 04:10 MCHC 32.8 g/dL (32.0-36.0) 04/23/22 04:10 RDW 18.7 % (12.1-15.2) H 04/23/22 04:10 Plt Count 183 K/uL (152-406) 04/23/22 04:10 MPV 8.1 fL (7.6-11.3) 04/23/22 04:10 Neutrophils % 76.9 % (41.7-73.7) H 04/23/22 04:10 Lymphocytes % 10.8 % (15.3-44.8) L 04/23/22 04:10 Monocytes % 10.4 % (3.3-12.3) 04/23/22 04:10 Eosinophils % 1.3 % (0-4.4) 04/23/22 04:10 Basophils % 0.6 % (0-1.3) 04/23/22 04:10 Absolute Neutrophils 15.6 K/uL (1.8-8.0) H 04/23/22 04:10 Segmented Neutrophils 72 % (40-80) 04/23/22 04:10 Band Neutrophils 3 % (0-1) H 04/23/22 04:10 Absolute Lymphocytes 2.2 K/uL (0.7-4.9) 04/23/22 04:10 Lymphocytes 9 % (15-42) L 04/23/22 04:10 Monocytes 15 % (0-10) H 04/23/22 04:10 Absolute Monocytes 2.1 K/uL (0.1-1.3) H 04/23/22 04:10 Absolute Eosinophils 0.3 K/uL (0-0.5) 04/23/22 04:10 Basophils 1 % (0-1) 04/18/22 05:52 Absolute Basophils 0.1 K/uL (0-0.5) 04/23/22 04:10 Metamyelocytes 3 % (0-0) H 04/18/22 05:52 Myelocytes 2 % (0-0) H 04/21/22 05:35 Nucleated RBCs 1 /100WBC 04/21/22 05:35 Reactive Lymphocytes 1 % 04/23/22 04:10 Toxic Granulation 1+ 04/17/22 06:33 Platelet Estimate Adeq 04/23/22 04:10 Polychromasia 2+ 04/23/22 04:10 Hypochromasia 1+ 04/18/22 05:52 Poikilocytosis 1+ 04/18/22 05:52 Anisocytosis 1+ 04/21/22 05:35 Microcytosis 1+ 04/18/22 05:52 Target Cells Few 04/17/22 06:33 Schistocytes 1+ 04/18/22 05:52 Morphology Comment Noted (NOT SEEN) 04/23/22 04:10 ESR Westergren 56 mm/HR (0-20) H 04/21/22 05:35 Absolute Retic 0.11 M/uL (0.02-0.11) 04/21/22 05:35 Percent Retic 3.29 % (0.4-2.05) H 04/21/22 05:35 PT 12.7 SECONDS (9.5-12.5) H 04/16/22 03:56 INR 1.15 04/16/22 03:56 APTT 24.0 SECONDS (24.3-36.9) L 04/16/22 03:56 Sodium 144 mmol/L (136-145) 04/23/22 04:10 Potassium 4.1 mmol/L (3.5-5.1) 04/23/22 04:10 Chloride 113 mmol/L (98-107) H 04/23/22 04:10 Carbon Dioxide 25 mmol/L (21-32) 04/23/22 04:10 Anion Gap 10.1 mEq/L (5.0-15.0) 04/23/22 04:10 BUN 25 mg/dL (7-18) H 04/23/22 04:10 Creatinine 1.86 mg/dL (0.55-1.3) H 04/23/22 04:10 Est GFR (CKD-EPI) 36 ml/min (=/>90) L 04/23/22 04:10 Glucose 81 mg/dL (74-106) 04/23/22 04:10 Lactic Acid 0.7 mmol/L (0.4-2.0) 04/16/22 10:52 Uric Acid 8.9 mg/dL (2.6-6.0) H D 04/21/22 05:35 Calcium 8.4 mg/dL (8.5-10.1) L 04/23/22 04:10 Phosphorus 4.1 mg/dL (2.5-4.9) 04/21/22 05:35 Magnesium 1.8 mg/dL (1.8-2.4) 04/23/22 04:10 Total Bilirubin 0.3 mg/dL (0.2-1.0) 04/21/22 05:35 AST 25 U/L (15-37) 04/21/22 05:35 ALT 19 U/L (12-78) 04/21/22 05:35 Alkaline Phosphatase 167 U/L (45-117) H 04/21/22 05:35 C-Reactive Protein 175.00 mg/L (<3.00) H 04/21/22 05:35 Serum Total Protein 5.6 g/dL (6.4-8.2) L 04/21/22 05:35 Albumin 1.9 g/dL (3.4-5.0) L 04/23/22 04:10 Globulin 3.8 g/dL (2.3-3.5) H 04/21/22 05:35 Albumin/Globulin Ratio 0.5 (1.1-1.8) L 04/21/22 05:35 Prealbumin 13.9 mg/dL (20-40) L 04/23/22 04:10 Procalcitonin 2.44 ng/mL (<0.050) H 04/21/22 17:48 Urine Color Light-yellow (Yellow) 04/22/22 01:05 Urine Clarity Clear (Clear) 04/22/22 01:05 Urine pH 6.5 (5.0-7.0) 04/22/22 01:05 Ur Specific [place] 1.013 (1.005-1.030) 04/22/22 01:05 Glucose (UA)(Auto) Negative (Negative) 04/22/22 01:05 Urine Ketones Negative (Negative) 04/22/22 01:05 Urine Blood 1+ (Negative) H 04/22/22 01:05 Urine Nitrite Negative (Negative) 04/22/22 01:05 Urine Bilirubin Negative (Negative) 04/22/22 01:05 Urine Urobilinogen Normal (Normal) 04/22/22 01:05 Ur Leukocyte Esterase 25 Bela/uL (Negative) H 04/22/22 01:05 Urine RBC 11-20 /HPF (None Seen) H 04/22/22 01:05 Urine Red Cell Clumps Cancelled 04/10/22 05:00 Urine WBC 5-10 /HPF (<5) 04/22/22 01:05 Urine WBC Clumps Cancelled 04/10/22 05:00 Ur Squamous Epith Cells <5 /HPF (None Seen) 04/22/22 01:05 U Non-Squamous Epi Cells <5 /HPF (None Seen) 04/22/22 01:05 Ur Transition Epith Cell Cancelled 04/10/22 05:00 Ur Renal Epithelial Cell Cancelled 04/10/22 05:00 Calcium Carbonate Cryst Cancelled 04/10/22 05:00 Calcium Oxalate Crystal Cancelled 04/10/22 05:00 Leucine Crystals Cancelled 04/10/22 05:00 Cystine Crystals Cancelled 04/10/22 05:00 Uric Acid Crystals Cancelled 04/10/22 05:00 Triple Phos Crystals Cancelled 04/10/22 05:00 Tyrosine Crystals Cancelled 04/10/22 05:00 Unidentified Crystals Cancelled 04/10/22 05:00 Amorphous Crystals Cancelled 04/10/22 05:00 Urine Bacteria 20-50 /HPF (<20) H 04/10/22 06:10 Hyaline Casts 0-5 /LPF (None Seen) 04/22/22 01:05 Granular Casts Cancelled 04/10/22 05:00 Waxy Casts Cancelled 04/10/22 05:00 RBC Casts Cancelled 04/10/22 05:00 WBC Casts Cancelled 04/10/22 05:00 Urine Mucus Slight /HPF (None Seen) 04/22/22 01:05 Urine Trichomonas Cancelled 04/10/22 05:00 Ur Yeast w Hyphae Cancelled 04/10/22 05:00 Urine Yeast (Budding) Few /HPF (None Seen) H 04/10/22 06:10 Urine Sperm Cancelled 04/10/22 05:00 Ur Oval Fat Bodies Cancelled 04/10/22 05:00 U Random Total Protein 396.8 mg/dL (<11.9) H 04/22/22 01:05 Urine Creatinine 57.0 mg/dL (20-320) 04/22/22 01:05 Protein/Creatinin Ratio 6.96 ratio (<0.15) H 04/22/22 01:05 Urine Total Protein 3+ (Negative) H 04/22/22 01:05 Urine Ascorbic Acid Cancelled 04/10/22 05:00 Urine Fat Cancelled 04/10/22 05:00 Double Strand DNA Ab 3 IU/mL (<=4) 04/21/22 05:35 Complement C3 119 mg/dL (83-193) 04/21/22 05:35 Complement C4 34 mg/dL (15-57) 04/21/22 05:35 SARS-CoV-2 Rap RNA(RT-PCR) Negative (NEGATIVE) 04/23/22 11:20 Smear Scan Ok (OK) 04/17/22 06:33 ABO/Rh O POSITIVE 04/20/22 11:00 Solid Phase Ab Screen Negative 04/20/22 11:00 Crossmatch See Detail 04/20/22 11:00 Weight: 188 lb 8 oz Wound Present: Yes Closed Surgical Incision Present: Yes Negative Pressure Wound Therapy Present: No Physician Update: She has declined this week in functioning. However, she was able to stand for 15 seconds with assistance up using the SHANA lift. Mod assistance grooming, bathing, upper body dressing. She will likely require an extended time for recovery given her poor progress overall in 2 week. Will plan to transfer to SNF. Functional Improvement: Patient continues to progress w/ therapy, however it is a very slow progression. Patient's tolerance level for sit <> nursing clerk Shana Plu s lift is improving. Summary: Patient's care plan and mcc goals have been reviewed and revised as necessary. Please see the Rehabilitation Signature page for all necessary signatures.
--- NOTE | 2022-04-24 16:14 | P.PN ---
Nephrology (S) Pt was citing lower back pain yesterday but that is better today, no abd pain but appetite is low. No nausea Vitals, medications, blood work and imaging reviewed in the chart. General: NAD, non tachypnec HEENT: Atraumatic, NC no longer present Neck: Supple, Rt IJ TDC removed. Respiratory: Normal respiratory effort, b/l air entry, no rhonchi Cardiovascular: Not tachy, regular rate and rhythm Gastrointestinal: Surgical incision covered with dressing, colostomy present with stoma appearing retracted, abd distention improved Musculoskeletal: No clubbing, No contractures Ext: No sig LE edema Integumentary: No rashes, No cyanosis Neurological: Awake, alert, non encephalopathic, no tremors or myoclonus Labs reviewed in EMR Conclusions/Impression: Stage III ARF last month with presenting Cr level > 4 mg/dl in the setting of hypotension, anemia, sepsis, other likely leading to ATN 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 Prev stopped ARB and scheduled diuretic dose as prior generalized edema improved Renal function tests stable for the most part although surprisingly Cr level marginally higher earlier in the week despite IVF admin, nonetheless can pursue CT scan with IV contrast if needed, will re-order IVF dacia contrast exposure Underlying chronic HTN -BP stable currently, avoid relative hypotension, check orthostatic vitals as pt reports feeling equilibrium is off when she attempts to stand. Still not ambulating Acute on chronic anemia related to surgical losses and chronic illnesses including lupus, CKD, other -Multiple transfusions last month, Hb remains < 9, has been hyporesponsive to TANIA likely due to iron deficiency/inflammation, did order Ferrlecit IV iron doses x 5 last week. Pt did end up getting a transfusion earlier this week. Did recently add MVI and Vit C SLE with lupus nephritis. -Monitor. Remains off IS/MMF, had been on stress dose steroids, back down to maintenance PO prednisone. Proteinuria present with Up/c in the nephrotic range but may be tubular in part with recent ATN, did re-assess lupus serologic studies and complement levels (and those currently are not elevated or reduced) Pseudomonas wound culture -Abx per ID, monitor WBC Martin Joseph MD, [facility]
[2022-04-24] MEDS: Meropenem 500 MG in NA CHLORIDE 0.9% 100 ML IV SCH (17:13)
[2022-04-24] MEDS: EPOETIN ALFA 10,000 UNIT/ML VIAL SQ SCH (17:14)
--- NOTE | 2022-04-24 18:51 | PN ---
Subjective: Patient lying in bed. No new acute event. Chart reviewed. Feels slightly better today as patient is getting some help with the back pain. Objective: Vital Signs: Temperature 97, pulse 90, respirations 14, blood pressure 148/93. Lungs: Basal crackles. Heart: S1, S2. Regular. Abdomen: Bowel sounds present. Extremities: No edema. Laboratory Data: WBC 20.20, hemoglobin 9.4, platelets 183. Chemistry shows sodium 144, potassium 4. 1, chloride 113, bicarb 25, BUN 25, creatinine 1.8. Albumin level is 1.9. Procal is 2.4. Assessment And Plan: 32-year-old female, status post perforation of diverticulum and hematoma evacua tion, continued to have persistent leukocytosis. We will repeat blood cultures and also change antib iotics Cipro to meropenem. Repeat blood cultures. We will also consult with Nephrology team before ordering a CT abdomen and pelvis. Repeat labs. We will follow the patient and monitor patient for a ny signs of infection with WBC and fever trends. NF/MODL Voice ID: [id number] Report ID: [id number]
[2022-04-24] MEDS: GABAPENTIN 100 MG CAP PO SCH ×2 (20:00→21:00)
[2022-04-24] MEDS: FAMOTIDINE 20 MG TAB PO SCH (21:00)
[2022-04-24] MEDS: MIRTAZAPINE 15 MG TAB PO SCH (21:01)
[2022-04-25] MEDS: Meropenem 500 MG in NA CHLORIDE 0.9% 100 ML IV SCH ×3 (01:27→16:13)
[2022-04-25] MEDS: METRONIDAZOLE 500mg IVPB 500 MG/100 ML BAG IV SCH ×3 (01:28→17:22)
[2022-04-25] MEDS: Ringers Lactate 1,000 ML IV SCH ×2 (01:31→08:00)
[2022-04-25] MEDS ORDERED: NA CHLORIDE 0.9% 0 ML ONE (01:33)
[2022-04-25 07:07] LABS: Absolute Lymphocytes (CBC) 2.5 K/uL (0.7-4.9); Hematocrit 25.7 % (36.0-45.0); Lymphocytes % 12.5 % (15.3-44.8); MCV 81.7 fL (80-100); MPV 7.7 fL (7.6-11.3); RBC Red Blood Cell Count 3.15 M/uL (3.86-4.86)
[2022-04-25 07:18] LABS: Potassium 3.9 mmol/L (3.5-5.1)
[2022-04-25] MEDS: ENSURE HIGH PROTEIN 237 ML CAN PO SCH ×2 (08:00→20:07)
[2022-04-25] MEDS: LIDOCAINE 4% PATCH TOP SCH (08:00)
[2022-04-25] MEDS: AMLODIPINE 5 MG TAB PO SCH (09:34)
[2022-04-25] MEDS: SILVER SULFADIAZINE 1% 50 GM TOP SCH ×2 (09:34→20:06)
[2022-04-25] MEDS: METOPROLOL TAR 50 MG TAB PO SCH ×2 (09:34→20:06)
[2022-04-25] MEDS: predniSONE 10 MG TAB PO SCH (09:35)
[2022-04-25] MEDS: GABAPENTIN 100 MG CAP PO SCH ×3 (09:35→20:06)
[2022-04-25] MEDS: ASCORBIC ACID 500 MG TABLET PO SCH (09:35)
[2022-04-25] MEDS: MAGNESIUM OXIDE 400 MG TAB PO SCH (09:35)
[2022-04-25] MEDS: MULTIVITAMIN TAB PO SCH (09:35)
[2022-04-25] MEDS: VITAMIN D 5,000 UNIT CAP PO SCH (09:35)
--- NOTE | 2022-04-25 11:02 | RAD REPORT ---
EXAM DESCRIPTION: CTAbdomen Pelvis Wo Contrast - 04/25/2022 10:40 am CLINICAL HISTORY: post bowel perforation COMPARISON: Abdomen Pelvis Wo Contrast dated 04/01/2022; Abdomen Pelvis Wo Contrast dated ; Abdomen Pelvis Wo Contrast dated 03/24/2022; Abdomen Pelvis W Contrast dated 03/19/2022; Chest An benny dated 03/19/2022; Transvaginal Study Probe dated 04/21/2022; UPPER EXTREMITY VENOUS BILAT dated 03/24 TECHNIQUE: CT of the abdomen and pelvis was performed without IV contrast. Enteric contrast was admi nistered. All CT scans are performed using dose optimization technique as appropriate and may include automated exposure control or mA/KV adjustment according to patient size. FINDINGS: Lower chest: Cardiomegaly. Trace left pleural fluid Liver: No acute abnormality or suspicious lesions. Biliary: No biliary ductal dilatation. Cholelithiasis. Stomach: No significant focal abnormality. Duodenum: No significant focal abnormality. Pancreas: No significant abnormality. Spleen: No significant abnormality. Adrenal: No suspicious lesions. Kidney/ureter: No hydronephrosis. No renal calculi. Retroperitoneum: No retroperitoneal adenopathy. Vascular: No aneurysm. Bowel: Left lower quadrant colostomy. No bowel obstruction is identified. Contrast reaches the colost winsome bag.. Peritoneum: Nonspecific mesenteric edema. Body wall edema. Bladder: Grossly unremarkable. Reproductive: No adnexal masses. IUD. Bones: No acute fracture. Other: n/a IMPRESSION: No acute intra-abdominal or pelvic finding. Left lower quadrant colostomy. No bowel obst ruction is identified. Enteric contrast reaches the colostomy bag. Mesenteric and body wall edema may reflect anasarca.
--- NOTE | 2022-04-25 15:49 | PN ---
Date of Progress Note: 04/25/2022 Subjective: The patient was seen and examined at bedside. She is doing okay. Denies any complaints other than some swelling in the legs. Physical Examination: Vital Signs: Have been reviewed and are stable. General: She appears in no acute distress. Lungs: Clear. Abdomen: Soft. Extremities: Showed no evidence of edema. Laboratory Data: Showing sodium of 147, potassium of 3.9, BUN of 27, creatinine of 1.89 which is sta ble. CBC showing WBC count of 19,000, hemoglobin of 8.4, hematocrit of 25.7, and platelet count of 2 06. Current Medications: Have been reviewed in detail. She remains on Flagyl every 8 hours, Retacrit, m etoprolol, Remeron, prednisone 10 mg a day. Impression: 1.Acute on chronic renal insufficiency with underlying lupus nephritis. The patient's renal functio n is stable at this time, not requiring any dialysis. 2.Leukocytosis. The patient is being worked up. She remains on vancomycin and CT scan showed no ev idence of any abscesses at this time. 3.Chronic underlying hypertension. 4.Anemia secondary to chronic disease. Remains on Retacrit. 5.History of lupus nephritis. The patient remains off immunosuppression at this time. She is just on low-dose prednisone. Continue to monitor closely. Plan: The patient's renal function is stable. Discontinue IV fluids as she did not receive any IV c ontrast. Continue compression stocking for her swelling in the legs and monitor closely and follow up on labs. VV/MODL Voice ID: [id number] Report ID: [id number]
[2022-04-25] MEDS: MIRTAZAPINE 15 MG TAB PO SCH (20:06)
[2022-04-25] MEDS: FAMOTIDINE 20 MG TAB PO SCH (20:06)
[2022-04-25] MEDS: HYDROCODONE/APAP 7.5/325 MG TAB PO PRN (20:23)
[2022-04-26] MEDS: Meropenem 500 MG in NA CHLORIDE 0.9% 100 ML IV SCH ×3 (00:18→16:28)
[2022-04-26] MEDS: METRONIDAZOLE 500mg IVPB 500 MG/100 ML BAG IV SCH ×3 (00:47→16:06)
[2022-04-26] MEDS: GABAPENTIN 100 MG CAP PO SCH ×3 (08:00→20:00)
[2022-04-26] MEDS: ENSURE HIGH PROTEIN 237 ML CAN PO SCH ×2 (08:00→20:30)
[2022-04-26] MEDS: METOPROLOL TAR 50 MG TAB PO SCH ×2 (08:20→20:29)
[2022-04-26] MEDS: ASCORBIC ACID 500 MG TABLET PO SCH (08:23)
[2022-04-26] MEDS: MAGNESIUM OXIDE 400 MG TAB PO SCH (08:23)
[2022-04-26] MEDS: VITAMIN D 5,000 UNIT CAP PO SCH (08:23)
[2022-04-26] MEDS: predniSONE 10 MG TAB PO SCH (08:24)
[2022-04-26] MEDS: AMLODIPINE 5 MG TAB PO SCH (08:24)
[2022-04-26] MEDS: MULTIVITAMIN TAB PO SCH (08:24)
[2022-04-26] MEDS: SILVER SULFADIAZINE 1% 50 GM TOP SCH ×2 (09:47→20:28)
[2022-04-26] MEDS: MIRTAZAPINE 15 MG TAB PO SCH (20:29)
[2022-04-26] MEDS: FAMOTIDINE 20 MG TAB PO SCH (20:29)
[2022-04-26] MEDS: HYDROCODONE/APAP 7.5/325 MG TAB PO PRN (21:26)
[2022-04-27] MEDS: Meropenem 500 MG in NA CHLORIDE 0.9% 100 ML IV SCH ×3 (00:04→16:36)
[2022-04-27] MEDS: METRONIDAZOLE 500mg IVPB 500 MG/100 ML BAG IV SCH ×3 (00:33→16:37)
[2022-04-27] MEDS: METOPROLOL TAR 50 MG TAB PO SCH ×2 (07:56→20:34)
[2022-04-27] MEDS: ASCORBIC ACID 500 MG TABLET PO SCH (07:56)
[2022-04-27] MEDS: predniSONE 10 MG TAB PO SCH (07:57)
[2022-04-27] MEDS: MULTIVITAMIN TAB PO SCH (07:57)
[2022-04-27] MEDS: AMLODIPINE 5 MG TAB PO SCH (07:57)
[2022-04-27] MEDS: VITAMIN D 5,000 UNIT CAP PO SCH (07:57)
[2022-04-27] MEDS: ENSURE HIGH PROTEIN 237 ML CAN PO SCH ×2 (07:58→20:00)
[2022-04-27] MEDS: SILVER SULFADIAZINE 1% 50 GM TOP SCH ×2 (07:58→20:35)
[2022-04-27] MEDS: MAGNESIUM OXIDE 400 MG TAB PO SCH (07:58)
[2022-04-27] MEDS: GABAPENTIN 100 MG CAP PO SCH ×2 (07:59→20:34)
[2022-04-27 13:43] LABS: Absolute Lymphocytes (CBC) 1.1 K/uL (0.7-4.9); Hematocrit 28.4 % (36.0-45.0); Lymphocytes % 5.8 % (15.3-44.8); MCV 81.3 fL (80-100); MPV 7.6 fL (7.6-11.3)
[2022-04-27 14:00] LABS: Potassium 3.8 mmol/L (3.5-5.1)
[2022-04-27 14:50] LABS: Blood Morphology Comment NOT SEEN (NOT SEEN); Platelet Estimate ADEQ; White Blood Cell Scan OK (OK)
--- NOTE | 2022-04-27 15:40 | PN ---
Subjective: The patient is sitting in easy chair, not in any acute distress. Objective: Vital Signs: Temperature 97, pulse 85, respirations 18, blood pressure 148/94. Lungs: Basal crackles. Heart: S1, S2. Regular. Abdomen: Soft. Bowel sounds present. Wounds noted. Extremity: No edema. Laboratory Data: Shows WBC 18.9, hemoglobin 9.2, platelets are 262. Chemistry shows sodium 144, pot assium 3.8, chloride 113, bicarb 23, BUN 29, creatinine 1.9, glucose is 122. Micro data, no new cult ures are available. Assessment And Plan: Status post perforated diverticulum and hematoma evacuation. The patient fox nued to have persistent leukocytosis. We will repeat blood cultures. CT scan repeat did not show an y acute finding on April 25, except mesenteric and body wall edema may reflect anasarca. We hank l continue empiric antibiotic and repeat blood cultures and follow the patient as needed. Consider t ransferring the patient to long-term acute care for further evaluation and management. NF/MODL Voice ID: [id number] Report ID: [id number]
[2022-04-27] MEDS: EPOETIN ALFA 10,000 UNIT/ML VIAL SQ SCH (17:30)
[2022-04-27] MEDS: FAMOTIDINE 20 MG TAB PO SCH (20:34)
[2022-04-27] MEDS: MIRTAZAPINE 15 MG TAB PO SCH (20:34)
[2022-04-27] MEDS ORDERED: NA CHLORIDE 0.9% 250 ML ONE (20:59)
[2022-04-28] MEDS: HYDROCODONE/APAP 7.5/325 MG TAB PO PRN ×2 (02:03→11:37)
[2022-04-28 04:42] LABS: Hematocrit 23.5 % (36.0-45.0); Lymphocytes % 13.6 % (15.3-44.8); MCV 81.9 fL (80-100); MPV 7.5 fL (7.6-11.3); RBC Red Blood Cell Count 2.87 M/uL (3.86-4.86)
[2022-04-28 05:02] LABS: Magnesium 1.8 mg/dL (1.8-2.4); Potassium 3.6 mmol/L (3.5-5.1)
[2022-04-28] MEDS: METRONIDAZOLE 500mg IVPB 500 MG/100 ML BAG IV SCH ×3 (07:02→16:38)
[2022-04-28] MEDS: GABAPENTIN 100 MG CAP PO SCH ×4 (08:00→19:59)
[2022-04-28] MEDS: predniSONE 10 MG TAB PO SCH (08:16)
[2022-04-28] MEDS: ASCORBIC ACID 500 MG TABLET PO SCH (08:16)
[2022-04-28] MEDS: MULTIVITAMIN TAB PO SCH (08:16)
[2022-04-28] MEDS: ENSURE HIGH PROTEIN 237 ML CAN PO SCH ×2 (08:17→19:43)
[2022-04-28] MEDS: METOPROLOL TAR 50 MG TAB PO SCH ×2 (08:17→19:42)
[2022-04-28] MEDS: AMLODIPINE 5 MG TAB PO SCH (08:18)
[2022-04-28] MEDS: MAGNESIUM OXIDE 400 MG TAB PO SCH (08:18)
[2022-04-28] MEDS: VITAMIN D 5,000 UNIT CAP PO SCH (08:19)
[2022-04-28] MEDS: Meropenem 500 MG in NA CHLORIDE 0.9% 100 ML IV SCH ×4 (09:00→17:08)
[2022-04-28] MEDS: SILVER SULFADIAZINE 1% 50 GM TOP SCH ×2 (10:23→19:42)
[2022-04-28] MEDS: LACTOBACILLUS/ACIDOPHILUS TAB PO SCH ×2 (12:49→19:41)
--- NOTE | 2022-04-28 15:28 | PN ---
Subjective: The patient is lying in bed. No new acute event. Chart reviewed. Mother is by the bed side. The patient is able to eat better. Objective: Vital Signs: Reviewed. Lungs: Basal crackles. Heart: S1, S2. Regular. Abdomen: Soft. Bowel sounds present. Extremities: Trace edema. Laboratory Data: Shows WBC 14.4, hemoglobin 7.5, platelets are 233. Chemistry shows sodium 145, pot assium 3.6, chloride 115, bicarb 25, BUN 30, creatinine 1.6, glucose is 81. Assessment And Plan: Status post diverticular perforation and hematoma evacuation. The patient at t he rehab continued to have persistent leukocytosis. We will continue meropenem and Flagyl. Slight i mprovement in leukocytosis. Cultures are also growing. Consider long-term acute care. We will foll ow the patient closely and no other recommendation at this time. Repeat blood cultures and MRI of th e abdomen and pelvis if needed. NF/MODL Voice ID: [id number] Report ID: [id number]
--- NOTE | 2022-04-28 18:21 | R.PN ---
PROGRESS NOTES ENCOUNTER DATE AND TIME: 04/28/2022 18:15 (CDT) NAME BRIANNA NIETO DATE OF : 1990 DATE OF ADMISSION: 04/09/2022 16:39 (CDT) K57.20 Perforated Diverticular [id number] Perforated ViscusCHIEF COMPLAINT: Perforated Diverticular disease SUBJECTIVE: Pt denied any Shortness of Breath. Pt denied any depression. Bed mobility done with moderate assistance. Self-propelled wheelchair 500' with SBA. VITAL SIGNS Temperature: 96.9 F SBP/DBP: 146/96 Pulse: 90 Resp: 16 MEDICATION ALLERGIES: Toradol Tramadol ENVIRONMENTAL ALLERGIES: - Substance Allergies None Known - Other Allergies None Known NURSING: - Shower allowing shower PRECAUTIONS: - Fall Precaution Bed alarm TABS alarm Wheel chair alarm - Bleeding Risk Lovenox - DVT Risk due to restricted mobility - Skin Breakdown Risk Routine Wound care due to restricted mobility ACTIVITIES OOB only with supervision THERAPIES: - Dietary and Nutrition Adequate Nutrition. Nutritional Education. Nutritional Supplements. - Occupational Therapy Cognitive Retraining. Patient needs Occupational Therapy for a daily minimum of 1.5 hours at least 5 out of 7 days, to improve Activities of Daily Living, including: Eating, Grooming, Bathing, Dressing, Toileting, Toilet Transfers, Community Reintegration, Higher functional activities, Adaptive Equipme nt, Splinting, Household Tasks, and Other activities as determined. Visual Perceptual Training. - Physical Therapy Patient needs Physical Therapy for a daily minimum of 1.5 hours at least 5 out of 7 days, to improve: Mobility, Strengthening, Transfers, Stretching, ROM, Endurance, Ability to manage stairs, Gait, and Balance. PHYSICAL EXAM - Gen Alert and awake Lying in bed No apparent distress Oriented to: person, time, and place - Skin No skin breakdown. Normacephalic - Eyes No abnormalities - ENMT No abnormalities - Neck No abnormalities - CVS RRR - Chest No abnormalities - Abd colostomy in place - GI Non distended Deferred - Rivera catheter - Ext Mild bilateral lower extremity edema. - MSK 4/5 weakness in both lower extremities. - Neuro No focal deficits - Psych Mild depression. ASSESSMENT: Pt. is a 32 yo female of unknown race.On 02/16/2022 she was admitted to [facility] with di agnosis K57.20 Perforated Diverticular disease.Her impairment category is Medically Complex Condition s 17 - Infections (17.1).Pre-morbidly, Pt. was independent/mod-I in Locomotion and Self-Care; and sh e had good Balance, Transfers Control, Self-Care, and Endurance.Currently, she has deficits of Locomo tion, Balance, Transfers Control, Self-Care, and Endurance.Pt. is now referred to [facility] for acute in-patient rehabilitation in order to maximize patient's functional independ ence in activities of daily living, strength, ROM, and mobility.- Rehab Goal Patient has realistic goal of being discharged at assistance level 6-Tiffany to reside at Home with Fam fermin/Relatives. MDM/PLAN: - Physical Therapy Gait dysfunction - to improve, our physical therapists will perform initial evaluation of pt's statu s upon admission and devise an individualized program for Gait Training, and Wheel Chair mobility Inability to transfer - to improve, our physical therapists will perform initial evaluation of pt's status upon admission and devise an individualized program for Bed mobility Need for home safety evaluation - to improve, our physical therapists will perform initial evaluatio n of pt's status upon admission and devise an individualized program for Home Evaluation Need in caregiver upon discharge - to improve, our physical therapists will perform initial evaluati on of pt's status upon admission and devise an individualized program for Caregiver Training New precaution - to improve, our physical therapists will perform initial evaluation of pt's status upon admission and devise an individualized program for Patient precaution education Edema - to improve, our physical therapists will perform initial evaluation of pt's status upon admi ssion and devise an individualized program for Elevation Training, and Lymphedema Therapy Poor balance - to improve, our physical therapists will perform initial evaluation of pt's status up on admission and devise an individualized program for Balance Training Poor endurance - to improve, our physical therapists will perform initial evaluation of pt's status upon admission and devise an individualized program for Endurance Training Weakness - to improve, our physical therapists will perform initial evaluation of pt's status upon a dmission and devise an individualized program for Aquatic Therapy, Neuromuscular Reeducation, and Str engthening Achieving independence - to improve, our physical therapists will perform initial evaluation of pt's status upon admission and devise an individualized program for Community Reintegration Activities - Occupational Therapy ADL deficits - to improve, our occupation therapists will perform initial evaluation of pt's status upon admission and devise an individualized program for Bathing, Bed mobility, Community Reintegratio n, Cooking, Dressing, Eating, Fine Motor Skills, Grooming, Homemaking, Kitchen Mobility, Laundry, Pat ient Education, Safety Awareness, Splinting - Positioning, Transfers(Toilet, Tub, Shower), and Wheel Chair Management Need for child care attendant school - to improve, our occupation therapists will perform initial evaluation of pt's status upon admission and devise an individualized program for Caregiver Training Weakness - to improve, our occupation therapists will perform initial evaluation of pt's status upon admission and devise an individualized program for Aquatic Therapy, Balance, Endurance, UE ROM, and UE strengthening - Other See attached MAR (Medication Administration Record) - Diet Type Continue Renal - Diet - Liquid Texture Continue Regular - Tube Feed Continue N/A - Bleeding Risk Lovenox - DVT Risk due to restricted mobility - Skin Breakdown Risk Routine Wound care due to restricted mobility - Fall Precaution Bed alarm TABS alarm Wheel chair alarm - Diet - Solid Texture Continue Regular - Shower allowing shower FUNCTIONAL STATUS: UPDATED AT WEEKLY TEAM CONFERENCE - Bladder Same accident frequency: 7-Ind - No accidents in the past 7 days - Bowel Same accident frequency: 7-Ind - No accidents in the past 7 days - Walking Same score based on distance walked: 0(N/A) - Wheelchair Same score based on distance traveled: 0(N/A) FUNCTIONAL STATUS: - Self-Care A. Eating Ind B. Grooming Tiffany C. Bathing modA D. Dressing - Upper Grace E. Dressing - Lower modA F. Toileting sup - Sphincter Control G. Bladder control Grace H. Bowel control Tiffany - Transfers Control I. Bed/Chair/Wheelchair Grace J. Toilet Grace K. Tub/Shower modA - Locomotion L. Walk/Wheelchair (B) Grace M. Stairs maxA - Communication N. Comprehension (B) Tiffany O. Expression (B) Tiffany - Social Cognition P. Social Interaction Ind Q. Problem Solving sup R. Memory Ind - Endurance Fair - Balance Fair - Safety Awareness Fair QI SCORES: - Self-Care A. Eating 04-Supervision or touching assistance B. Oral hygiene 04-Supervision or touching assistance C. Toileting hygiene 01-Dependent E. Shower/bathe self 01-Dependent F. Upper body dressing 03-Partial/moderate assistance G. Lower body dressing 01-Dependent H. Putting on/taking off footwear 01-Dependent - Mobility A. Roll left and right 88-Not attempted due to medical condition or safety concerns B. Sit to lying 01-Dependent C. Lying to sitting on side of bed 01-Dependent D. Sit to stand 88-Not attempted due to medical condition or safety concerns E. Chair/[id number] transfer 88-Not attempted due to medical condition or safety concerns F. Toilet transfer 88-Not attempted due to medical condition or safety concerns G. Car transfer 88-Not attempted due to medical condition or safety concerns I. Walk 10 feet 88-Not attempted due to medical condition or safety concerns J. Walk 50 feet with two turns 88-Not attempted due to medical condition or safety concerns K. Walk 150 feet 88-Not attempted due to medical condition or safety concerns L. Walking 10 feet on uneven surfaces 88-Not attempted due to medical condition or safety concerns M. 1 step (curb) 88-Not attempted due to medical condition or safety concerns N. 4 steps 88-Not attempted due to medical condition or safety concerns O. 12 steps 88-Not attempted due to medical condition or safety concerns P. Picking up object 88-Not attempted due to medical condition or safety concerns R. Wheel 50 feet with two turns 09-Not applicable S. Wheel 150 feet 09-Not applicable - Bladder and Bowel Bladder continence 9-Not applicable Bowel continence 0-Always continent - Endurance Fair - Balance Poor - Safety Awareness Fair CURRENT FUNC. DEFICITS: Self-Care, Endurance, Balance, Safety Awareness, and Mobility SIGNATURE PANEL: (CDT)
[2022-04-28] MEDS: MIRTAZAPINE 15 MG TAB PO SCH (19:42)
[2022-04-28] MEDS: FAMOTIDINE 20 MG TAB PO SCH (19:42)
[2022-04-28] MEDS ORDERED: NA CHLORIDE 0.9% 250 ML ONE (23:04)
[2022-04-29] MEDS: Meropenem 500 MG in NA CHLORIDE 0.9% 100 ML IV SCH ×2 (00:01→08:16)
[2022-04-29] MEDS: METRONIDAZOLE 500mg IVPB 500 MG/100 ML BAG IV SCH ×3 (00:01→07:57)
[2022-04-29] MEDS: HYDROCODONE/APAP 7.5/325 MG TAB PO PRN ×2 (01:41→12:47)
--- NOTE | 2022-04-29 02:37 | OP ---
Date of Procedure: 04/28/2022 Surgeon: Filemon Caputo MD The patient is a 32-year-old female who underwent a Jennifer's procedure for perforated colon. She h ad a small staple that was in the colostomy site, and I was asked to evaluate. On physical exam, there was no evidence of any infection. There was just a staple that was protrudin g near the colostomy mucocutaneous site. So under clean condition, a clamp was utilized to grab the staple and remove it. There was no bleeding. There was no pain. The patient tolerated the procedur e in stable condition. /MODL Voice ID: [id number] Report ID: [id number]
[2022-04-29 07:53] VITALS: BP 151/95; TEMP 97.8
[2022-04-29] MEDS: AMLODIPINE 5 MG TAB PO SCH (07:56)
[2022-04-29] MEDS: METOPROLOL TAR 50 MG TAB PO SCH (07:56)
[2022-04-29] MEDS: ASCORBIC ACID 500 MG TABLET PO SCH (07:56)
[2022-04-29] MEDS: predniSONE 10 MG TAB PO SCH (07:56)
[2022-04-29] MEDS: LACTOBACILLUS/ACIDOPHILUS TAB PO SCH (07:56)
[2022-04-29] MEDS: MULTIVITAMIN TAB PO SCH (07:57)
[2022-04-29] MEDS: ENSURE HIGH PROTEIN 237 ML CAN PO SCH (07:57)
[2022-04-29] MEDS: VITAMIN D 5,000 UNIT CAP PO SCH (07:57)
[2022-04-29] MEDS: GABAPENTIN 100 MG CAP PO SCH (08:00)
[2022-04-29] MEDS: SILVER SULFADIAZINE 1% 50 GM TOP SCH (09:18)
--- NOTE | 2022-04-29 19:52 | PN ---
Subjective: The patient is sitting in wheelchair, not in any acute distress. Denies any headache, n ausea, vomiting, chest pain, abdominal pain. Still having problem getting up and going around. Objective: Vital Signs: Temperature 97, pulse 35, respirations 18, blood pressure 150/95. Lungs: Basal crackles. Heart: S1, S2. Regular. Abdomen: Soft, nontender. Bowel sounds present. Extremities: No edema. Laboratory Data: No new labs for today. Assessment And Plan: [facility], status post perforated diverticulum and hematoma evacuation. The patient is currently being treated with meropenem and Flagyl. Leukocytosis is on downtrend. The patient's renal insuffic iency is also improving. We will continue care at [facility]. Can repeat cultures if the ramona ent leukocytosis is persistent. If persistent, get surgical evaluation and get rehab team also invol enrrique. TRISH/MODL Voice ID: [id number] Report ID: [id number]
== END 2022-04-29 14:45 | DRG 949 ==
LOC: 5TH 04-09 16:39
PROVIDERS: ADMIT Psychiatry & Neurology Neurology with Special Qualifications in Child Neurology; ATTEND Psychiatry & Neurology Neurology with Special Qualifications in Child Neurology
PROC: 02PY33Z Removal of Infusion Device from Great Vessel, Percutaneous Approach (ICD-10-PCS; principal; 2022-04-16 09:30)
PROC: 05H633Z Insertion of Infusion Device into Left Subclavian Vein, Percutaneous Approach (ICD-10-PCS; 2022-04-20)
DX: Z48.815 Encounter for surgical aftercare following surgery on the digestive system (principal); E43 Unspecified severe protein-calorie malnutrition; N17.9 Acute kidney failure, unspecified; E87.2 Acidosis; N18.4 Chronic kidney disease, stage 4 (severe); A04.72 Enterocolitis due to Clostridium difficile, not specified as recurrent; N30.00 Acute cystitis without hematuria; M32.9 Systemic lupus erythematosus, unspecified; M32.14 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 lupus erythematosus; D63.1 Anemia in chronic kidney disease; E83.39 Other disorders of phosphorus metabolism; E87.5 Hyperkalemia; I48.91 Unspecified atrial fibrillation; I12.9 Hypertensive chronic kidney disease with stage 1 through stage 4 chronic kidney disease, or unspecified chronic kidney disease; E87.6 Hypokalemia; R53.81 Other malaise; R63.0 Anorexia; E83.42 Hypomagnesemia; B96.5 Pseudomonas (aeruginosa) (mallei) (pseudomallei) as the cause of diseases classified elsewhere; D50.9 Iron deficiency anemia, unspecified; N94.6 Dysmenorrhea, unspecified; F32.A Depression, unspecified; Z68.34 Body mass index [BMI] 34.0-34.9, adult
CPT/HCPCS: 36415; 71045; 74176; 76813; 76830; 80048; 80053; 80069; 81001; 82040; 82570; 83605; 83735; 84100; 84134; 84145; 84156; 84550; 85025; 85044; 85610; 85652; 85730; 86140; 86160; 86225; 86850; 86900; 86901; 87040; 87070; 87077; 87086; 87088; 87186; 87205; 88300; 93970; 97110; 97112; 97116; 97165; 97530; 97542; 99251; A4216; J0690; J0744; J1644; J2001; J2250; J2704; J2916; J3010; J3475; J7030; J7040; J7050; J7120; J7512; P9016; Q5106; U0003

== ENCOUNTER 2022-07-07 11:48 | Emergency (ER) | payer BC ==
--- OUTSIDE RECORDS SUMMARY | 2022-07-07 11:57 | XMS REPORT | Continuity of Care Document ---
:1990 Author Organization [facility] t Address [address] [place] [address] Care Team Providers Name Role Phone GRACE JOSEPH Primary Care Physician Unavailable SHAHID OSHEA Attending Clinician Unavailable LUZ MARIA LAMBERT Attending Clinician Unavailable Luz Maria Lambert DO Attending Clinician JAZLYN WARE Attending Clinician Unavailable Joelle Pelletier DO Attending Clinician Jazlyn Ware MD Attending Clinician OMID AUGUSTIN Attending Clinician Unavailable DAI MENDOZA Attending Clinician Unavailable Maryjo Cates MD Attending Clinician Lashell Hennessy MD Attending Clinician Dai Mendoza MD Attending Clinician Alicia TORRES, Gwen Espinoza Attending Clinician MARYJO CATES Attending Clinician Unavailable TOBI BLANCO Attending Clinician Unavailable Pob, [facility] Attending Clinician Unavailable Felicita Dubois MD Attending Clinician FELICITA DUBOIS Attending Clinician Unavailable Doctor Unassigned, Booth Attending Clinician Unavailable Grace Joseph DO Attending Clinician GRACE JOSEPH Attending Clinician Unavailable JACK ROLLE Attending Clinician Unavailable HONORIO FELICIANO Attending Clinician Unavailable UNKNOWN, ATTENDING Attending Clinician Unavailable LUZ MARIA LAMBERT Admitting Clinician Unavailable JOELLE PELLETIER Admitting Clinician Unavailable OMID AUGUSTIN Admitting Clinician Unavailable GWEN RASCON Admitting Clinician Unavailable LYNSEY TAPIA Admitting Clinician Unavailable HONORIO FELICIANO Admitting Clinician Unavailable Payers Payer Name Policy Type Policy Number Effective Date Expiration Date S ource [employer] [place] [id number] 2020 00:00:00 0450 [id number] 1959 00:00:00 BCBS PPO POS EPO [id number] 2020 00:00:00 CHOICE BCBS 2 [id number] 2021 00:00:00 [employer] [facility] CARE [id number] 2014 00:00:00 Problems Condition Condition Condition Status Onset Resolution Last Treating Co mments Source Name Details Category Date Date Treatment Clinician Date Weakness Weakness Disease [facility] extremitie extremitie 00 Ce nter s s Colostomy Colostomy Disease Active [facility] complic[facility] complic[facility] [address] on, on, 00:00: Medical unspecifie unspecifie 00 Ce nter d d Diverticul Diverticul Disease Active [facility] SEPSIS, SEPSIS, Diagnosis Active 2021-04-17 Memoria RESPIRATOR RESPIRATOR 04-04 21:44:00 l Y FAILURE Y FAILURE 00:00: Herm marco Active 00 04/04/2021 [facility] ACUTE ACUTE Diagnosis Active 2021-04-09 Mem oria RESPIRATOR RESPIRATOR 04-03 21:52:00 l Y FAILURE Y FAILURE 00:00: Herm marco WITH WITH 00 HYPOXIA HYPOXIA Active [facility] SOB SOB Diagnosis Active 2021-04-03 Mem oria Active 04-03 19:22:00 l 04/03/2021 00:00: Matthieu [facility] [address] [place] Lupus Lupus Disease Active [facility] [place] [facility] Systemic Systemic Problem Active 2021-04-13 Memoria lupus lupus 22:21:04 l erythemato erythemato He nohemy soriano (disorder) (disorder) Active Problem 04/13/2021 Jamilah Corado [facility] ILLNESS, ILLNESS, Diagnosis Active 2021-04-17 Memoria UNSPECIFIE UNSPECIFIE 21:44:00 l D D Active [facility] Hypertensi Hypertens Problem Active 2021-04-13 Memoria ve iron 22:21:04 l disorder, disorder, Herm marco systemic systemic arterial arterial (disorder) (disorder) Active Problem 04/13/2021 Jamilah Corado [facility] History of Past Illness Condition Condition Condition Status Onset Resolution Last Treating Co mments Source Name Details Category Date Date Treatment Clinician Date Morbid Morbid Problem 2021-04-13 2021-04-13 Memoria (severe) (severe) 8 22:21:04 22:21:04 l obesity obesity 17:00: [place] due to due to 00 excess excess calories calories 04/08/2021 04/13/2021 Jamilah Corado [facility] Allergies, Adverse Reactions, Alerts Allergy Allergy Status Severity Reaction(s) Onset Inactive Treating Comm ents Source Name Type Date Date Clinician GABAPENT DRUG Active Other-Cmnt 2021-08 Univ ers IN INGREDI 0-17 ity of 00:00: [place] 00 [facility] Branch Gabapent Propensi Active Other - See 2021-08 Shaking Univers in ty to comments 0-17 and ity of adverse 00:00: couldn't [place] reaction 00 talk Medical s Branch KETOROLA Allergy Active Other [facility] TRAMADOL Allergy Active [facility] Center Ketorola Propensi Active Other (See Advised [facility] ty to Comments) 8-10 by her [facility] adverse 00:00: Nephrolog Medica l reaction 00 ist not Center s to take it Tramadol Drug Active She was [facility] Allergy 8-10 told by [facility] 00:00: her Medical 00 Nephrolog Center ist not to take it MELOXICA DRUG Active Unknown-Cmnt Un yasmani M INGREDI 03-12 ity of 00:00: [place] 00 [...] Medical s Branch NO KNOWN Allergy Active [facility] Social History Social Habit Start Date Stop Date Quantity Comments Source Exposure to 2022-06-03 2022-06-13 Not sure University SARS-CoV-2 00:00:00 19:25:00 [facility] (event) [place] Social History 2021-04-05 2021-04-05 [facility] 05:31:53 05:31:53 Tobacco use and 2019-10-16 2019-10-16 Smokeless tobacco Un iversity of exposure 00:00:00 00:00:00 non-user [facility] Sex Assigned At [birth year] [facility] Smoking Status Start Date Stop Date Source Never smoked tobacco [facility] Medications Ordered Filled Start Stop Current Ordering Indication Dosage Frequency Signature Comments Components Source Medication Medication Date Date Medication? Clinician (SIG) Name Name famotidine 2021-08 No 20mg 20 mg, Univ ers (PEPCID 06-14 Slow IV ity of (PF)) 02:30: 01:27 Push, [place] injection 00 :00 ONCE, 1 Medical 20 mg dose, On Branch 06/13/22 at 2130, Routine dicyclomine 2021-08 No 20mg 20 mg, Uni vers (BENTYL) 06-14 Intramuscu ity of injection 02:15: 02:15 lar, ONCE, [place] 20 mg 00 :00 1 dose, On Medical Sat Branch 06/13/22 at 2115, Routine proMETHazin 2021-08- No 12.5mg 12.5 mg, Univers e 06-14 IV ity of (PHENERGAN) 02:00: 02:13 Piggyback, [place] 12.5 mg in 00 :00 ONCE, 1 Medica l NaCl 0.9% dose, On Branch (NS) 50 mL Sat IV 06/13/22 piggyback at 2100, CAPRICE NaCl 0.9% 2021-08- No 1000mL at 999 Uni vers (NS) bolus 0-23 10-23 mL/hr, ity of infusion 01:15: 03:21 1,000 mL, [place] as 1,000 mL 00 :00 IV Medical Infusion, Branch ONCE, 1 dose, On 06/13/22 at 2015, CAPRICE metoclopram 2021-08- No 10mg 10 mg, Uni vers nicole HCl 0-23 10-23 Slow IV ity of (REGLAN) 00:30: 01:02 Push, [place] injection 00 :00 ONCE, 1 Medical 10 mg dose, On Branch 06/13/22 at 1930, CAPRICE ondansetron 2021-08 Yes [id number] 4mg Take 1 Univers 4 mg 0-22 tablet by ity of disintegrat 00:00: mouth [place] ing tablet 00 every 8 Medica l (eight) Branch hours as needed for Nausea and Vomiting (N/V). dicyclomine 2021-08 Yes [id number] 20mg Take 1 Univers 20 mg 0-22 tablet by ity of tablet 00:00: mouth 4 [place] 00 (four) Medical times Branch daily. FENTanyl PF 2021-08 No 50ug 50 mcg, Un yasmani (SUBLIMAZE 0-18 10-17 Slow IV ity o f (PF)) 00:30: 23:49 Push, [place] injection 00 :00 ONCE, 1 Medical 50 mcg dose, On Branch 06/08/22 at 1930, Routine FENTanyl PF 2021-08- No 50ug 50 mcg, Un yasmani (SUBLIMAZE 0-17 10-17 Slow IV ity o f (PF)) 22:30: 21:53 Push, [place] injection 00 :00 ONCE, 1 Medical 50 mcg dose, On Branch 06/08/22 at 1730, Routine NaCl 0.9% 2021-08- No 500mL at 999 Univ ers (NS) bolus 0-17 10-18 mL/hr, 500 it y of infusion 21:45: 00:19 mL, IV [place] 500 mL 00 :00 Infusion, Medical ONCE, 1 Branch dose, On 06/08/22 at 1645, STAT proMETHazin 2021-08- No 25mg 25 mg, IV Univers e 0-17 10-17 Piggyback, ity of (PHENERGAN) 21:15: 21:27 [place]CE, 1 [place] 25 mg in 00 :00 dose, On Medical NaCl 0.9% Mon Branch (NS) 50 mL 06/08/22 IV at 1615, piggyback CAPRICE proMETHazin 2021-08 Yes [id number] 25mg Take 1 Univers e 25 mg 0-17 tablet by ity of tablet 00:00: mouth [place] 00 every 6 Medical (six) Branch hours as needed for Nausea and Vomiting (N/V). proMETHazin 2021-08 Yes [id number] 25mg Take 1 Univers e 25 mg 0-17 tablet by ity of tablet 00:00: mouth [place] 00 every 6 Medical (six) Branch hours as needed for Nausea and Vomiting (N/V). amLODIPine 2022- Yes 10mg QD Take [address] [facility] (NORVASC) 8-19 08-19 tablet (10 Raissa es 10 MG 00:00: 23:59 mg total) Medica l tablet 00 :00 by mouth Center daily. bumetanide 2022- Yes 2mg QD Take [address] (BUMEX) 2 8-19 08-19 tablet (2 Luke s MG tablet 00:00: 23:59 mg total) Me dical 00 :00 by mouth Center daily. HYDROcodone Yes 1{tbl} Take [address] -acetaminop 8-18 tablet by Raissa es hen (NORCO 15:17: mouth Medica l 7.5-325) 25 every 4 Center 7.5-325 mg (four) per tablet hours as needed for Pain (pain level 8-10). ALPRAZolam Yes .25mg Take 0.[address] (XANAX) 8-18 mg by [facility] 0.25 MG 15:17: mouth 2 Medical tablet 25 (two) Center times daily as needed for Anxiety. cyclobenzap Yes 10mg Take [address] rine 8-18 by mouth 2 [facility] (FLEXERIL) 15:17: (two) Medica l 10 MG 25 times Center tablet daily as needed for Muscle spasms. famotidine Yes 40mg QD Take [address] (PEPCID) 40 8-18 by mouth Luke s MG tablet 15:17: nightly. Medi joshua 25 Center mirtazapine 0 Yes 15mg QD Take [address] (REMERON) 8-18 by mouth [facility] 15 MG 15:17: nightly. Medical tablet 25 Center pantoprazol Yes 40mg Q.5D Inject [address] e 8-18 mg [facility] (PROTONIX) 15:17: intravenou M edical 40 mg in NS 25 sly 2 Center 100 mL (two) (V2B) IVPB times daily. cholecalcif Yes 5000U QD Take 5,[address] [facility] muna 8-18 Units by [facility] (VITAMIN 15:17: mouth Medical D3) 125 mcg 25 daily. Center (5,000 unit) tablet metoprolol Yes 50mg Q.5D Take [address] tartrate 8-18 by mouth 2 [facility] (LOPRESSOR) 15:17: (two) Medic al 50 MG 25 times Center tablet daily. losartan Yes 25mg QD Take [address] (COZAAR) 25 8-18 by mouth Luke s MG tablet 15:17: daily. Medica l 25 Center epoetin Yes [id number] Inject [facility] henry 8-18 10,000 [facility] (EPOGEN,PRO 15:17: Units Medic al CRIT) 25 subcutaneo Center 10,000 usly 3 unit/mL (three) injection times a week at bedtime MON/WED/ I. predniSONE Yes 10mg QD Take [address] (DELTASONE) 8-18 by mouth Luke s 10 MG 15:17: daily. Medical tablet 25 Center HYDROmorpho Yes .5mg Inject 0.[address] ne 8-18 mg [facility] (Dilaudid, 15:17: intravenou M edical PF,) 0.5 25 sly every Center mg/0.5 mL 4 (four) Syrg hours as needed (pain level5-7). hydralazine 2021- No 10mg Inject [address] HCl 8-18 08-18 mg as [facility]ukes (HYDRALAZIN 12:54: 00:00 directed M edical E INJ) 48 :00 every 6 Center (six) hours as needed (prn >160). meropenem 0 2021- No 500mg Q24H Inject [address] (MERREM) 8-18 08-18 mg [facility] MBP 1 gm in 12:54: 00:00 intravenou Medical 100 mL NS 48 :00 sly daily. Cent er sevelamer 0 2021- No 800mg Take [address] (RENVELA) 8-18 08-18 mg by [facility] 800 mg 12:54: 00:00 mouth 3 Medical tablet 48 :00 (three) Center times daily with meals. fluconazole 2021- No 400mg Inject [address] (DIFLUCAN) 8-18 08-18 mg [facility] 400 mg/200 12:54: 00:00 intravenou Medical mL IVPB 48 :00 sly IV Center every each dialysis . polyethylen 2021- No 17g QD Take [address] e glycol 8-18 08-21 by mouth [facility] (GLYCOLAX) 00:00: 23:59 daily for M edical 17 gram 00 :00 3 days. Center packet Cephalexin Yes 500 mg = 1 M emoria 500 MG Oral 8-20 cap, PO, l Capsule 16:47: TID, X 10 Glenna nn [Keflex] 00 day, # 30 cap, 0 Refill(s), Pharmacy: [facility], 160.02, cm, 04/05/21 0:22:00 CDT, Height, 111.5, kg, 04/05/21 0:22:00 CDT, Weight Metolazone Yes 5 mg = 1 Mem oria 5 MG Oral 8-20 tab, PO, l Tablet 16:04: Daily, # [place] 00 30 tab, 0 Refill(s), Pharmacy: [facility], 160.02, cm, 04/05/21 0:22:00 CDT, Height, 111.5, kg, 04/05/21 0:22:00 CDT, Weight Furosemide Yes 40 mg = 1 Me moria 40 MG Oral 8-20 tab, PO, l Tablet 16:03: BID, # 60 Matthieu n [Lasix] 00 tab, 0 Refill(s), Pharmacy: [facility], 160.02, cm, 04/05/21 0:22:00 CDT, Height, 111.5, kg, 04/05/21 0:22:00 CDT, Weight predniSONE Yes 60 mg = 3 Me moria 20 mg oral 8-20 tab, PO, l tablet 16:00: Daily, X [place] 00 14 day, # 42 tab, 0 Refill(s), Pharmacy: [facility], 160.02, cm, 04/05/21 0:22:00 CDT, Height, 111.5, kg, 04/05/21 0:22:00 CDT, Weight ferric No 200 mg, Memoria oxide, 8-19 Route: l saccharated 14:00: IVPB, Drug [place] 00 form: INJ, Daily, Dosing Weight 111.5, kg, Start date: 04/10/21 9:00:00 CDT, Duration: 3 doses or times, Stop date: 04/12/21 9:00:00 CDT Ferrlecit No 125 mg, 10 Me moria 8-19 mL, Route: l 14:00: IVPB, Drug [place] form: INJ, Daily, Start date: 04/10/21 9:00:00 CDT, Duration: 3 doses or times, Stop date: 04/12/21 9:00:00 CDT, 0 potassium 2020-0 No Notes: Memori a chloride 20 8-18 (Same as: l mEq oral 22:00: K-Dur 20) Herm marco tablet, 00 "Do Not extended Crush" release Give with (KCL) food and full glass of water For patients unable to swallow tablet, dissolve in one half glass of water. Allow about 2 minutes for the tablets to disintegra te. Stir before giving to prepare slurry and administer . Please exclude Patient s with feeding tube less than 14 [place] (Dobhoff, J-tube etc) and pediatric and patients. Prednisone No Notes: Memor ia 8-18 Take with l 14:00: food. [place] 00 Metolazone No Notes: Memor ia 5 MG Oral 8-18 (Same as: l Tablet 14:00: Zaroxolyn) Gl[place] nn 00 potassium No Notes: Memori a chloride 20 8-17 (Same as: l mEq oral 17:29: K-Dur 20) Herm marco tablet, 00 "Do Not extended Crush" release Give with (KCL) food and full glass of water For patients unable to swallow tablet, dissolve in one half glass of water. Allow about 2 minutes for the tablets to disintegra te. Stir before giving to prepare slurry and administer . Please exclude Patient s with feeding tube less than 14 [place] (Dobhoff, J-tube etc) and pediatric and patients. Acetaminoph No Notes: Kwasi zack en 325 MG / 16 (Same as: l Hydrocodone 18:17: [place] Glenna nn Bitartrate 00 325/5) Do 5 MG Oral not exceed Tablet 4gm/day of [[place] acetaminop 5/325] hen. Potassium No Notes: Memori a Chloride 8-16 (Same as: l 15:43: K-Dur 20) [place] 00 "Do Not Crush" Give with food and full glass of water For patients unable to swallow tablet, dissolve in one half glass of water. Allow about 2 minutes for the tablets to disintegra te. Stir before giving to prepare slurry and administer . Please exclude Patient s with feeding tube less than 14 [place] (Dobhoff, J-tube etc) and pediatric and patients. Lasix No Notes: Memoria -16 (Same as: l 14:00: Lasix) MEDICATION WASTE Product Size: 40 mg Product Wasted: ___ mg Calcium No Notes: Memoria Gluconate 04-07 WASTE: F/P l 03:16: - Sink; E - Municipal Trash Bin tramadol No Notes: Not Mem oria hydrochlori 04-06 to exceed l de 50 MG 20:13: 400mg/day. Her lawson Oral Tablet 00 (Same As: Ultram) Aluminum No Notes: Memoria Hydroxide / 8-15 (aluminum l Magnesium 18:09: hydroxide- He rmann Hydroxide / 00 magnesium Simethicone hyd-simeth icone 200-200-20 mg/5ml 30 ml ud MOISE) Famotidine No Notes: Memor ia 8-15 (Same as: l 18:09: Pepcid) [place] sevelamer No Notes: Memori a 8-15 Same as: l 17:00: Renvela [place] 00 FUROSemide No Notes: Memor ia additive 8-15 (Same as: l 100 mg [10 15:42: Lasix) H ermann mg/hr] + 00 MEDICATION Sodium WASTE Chloride Product 0.9% IV 90 Size: 100 mL mg Product Wasted: ___ mg Lasix No Notes: Memoria 8-15 (Same as: l 15:42: Lasix) [place] 00 Potassium No Notes: Memori a Chloride 8-15 (Same as: l 13:38: K-Dur 20) "Do Not Crush" Give with food and full glass of water For patients unable to swallow tablet, dissolve in one half glass of water. Allow about 2 minutes for the tablets to disintegra te. Stir before giving to prepare slurry and administer . Please exclude Patient s with feeding tube less than 14 [place] (Dobhoff, J-tube etc) and pediatric and patients. Oxycodone No Notes: Memori a Hydrochlori 8-15 (Same as: l de 5 MG 00:35: Roxicodone Herm marco Oral Tablet ) Cellcept No Notes: Memoria 8-14 Hazardous l 13:00: Drug Group [place] 00 2:Non-anti neoplastic Hazardous Drug -- Refer to safe handling procedure PPE Matrix (Do Not Crush) SEPARATE ANTACIDS from Cellcept by 2 hrs. (Same As: CellCept) heparin No Notes: Memoria 8-14 porcine l 13:00: heparin [place] 00 Hydrocortis No Notes: Kwasi zack one -14 (Same as: l 11:00: Solu-MARIAN [place] 00 F) sodium No Notes: Memoria bicarbonate -14 (sodium l 8.4% 06:11: bicarb [place] additive 00 8.4% (1 150 mEq + mEq/ml) 50 sterile ml VL) water diluent IV 1,000 mL cefepime No Notes: Memoria 8-14 (Same As: l 06:08: Maxipime) [place] 00 MEDICATION WASTE Product Size: 1000 mg Product Wasted: ___ mg carvedilol Yes 25 mg = 1 Me moria 25 mg oral 8-14 tab, PO, l tablet 05:15: BID, # 180 Gl[place] nn 00 tab, 0 Refill(s) ferrous Yes 325 mg = 1 Kwasi zack sulfate 325 8-14 tab, PO, l MG Oral 05:11: TID, # 270 Herm marco Tablet 00 tab, 0 Refill(s) Vitamin B12 No PO, Daily, Memoria 8-14 0 l 05:11: Refill(s) [place] 00 Ceftriaxone No Notes: Kwasi zack 8-14 (Same As: l 03:00: Rocephin). [place] 00 MEDICATION WASTE Product Size: 1000 mg Product Wasted: ___ mg Azithromyci No Notes: Kwasi zack n -14 (Same As: l 02:00: Zithromax [place] IV) Mannitol No Notes: Memoria 250 MG/ML -14 (Same as: l Injectable 01:02: Osmitrol) He rmann Solution 00 Infuse through 5 micron or smaller filter WASTE: F/P - Sink; E - Municipal Trash Bin methylPREDN No Notes: Kwasi zack ISolone 8-13 (Same l SODium 14:00: as:Solu-ME [place] nn SUCCinate 00 DROL, A-Methapre d) Saline No Notes: Memoria Flush 0.9% 8- Same as: l 14:00: BD [place] Posiflush Sterile heparin No Notes: Memoria 8-13 porcine l 14:00: heparin [place] 00 Protonix No Notes: For Mem oria 8-13 IV push l 12:30: reconstitu [place] te with 10 ml 0.9% sodium chloride and push over 2 minutes. (Same as: Protonix) Thyroxine No Notes: Memori a 8-13 Take 1 l 11:30: hour [place] 00 before or 2 hours after meal; Enteral feeds may interefere with the absorption of this medication .(Same as:Levothr oid, Synthroid) Dextrose No 12.5 gm, Memor ia 50% Syringe 04-04 25 mL, l (D50W) 09:19: Route: [place] 00 IVP, Drug Form: INJ, Dosing Weight 109.091, kg, PRN, PRN Blood Glucose Results, Start date: 04/04/21 4:19:00 CDT, Duration: 30 day, Stop date: 05/04/21 4:18:00 CDT, 0 Glucagon No 1 mg, Memoria 04-04 Route: IM, l 09:19: Drug form: [place] 00 PDR/INJ, PRN, Dosing Weight 109.091, kg, PRN Blood Glucose Results, Start date: 04/04/21 4:19:00 CDT, Duration: 30 day, Stop date: 05/04/21 4:18:00 CDT, 0 Insulin No Notes: Memoria Lispro 04-04 (Same as: l 09:19: Humalog) Roll in palms of hands gently; Do not shake vigorously . WASTE: F/P - Black; E - Municipal Trash Bin Stable for 28 days at room temperatur e. Expires in days from ____Date Calcium No Notes: Memoria Gluconate 04-04 WASTE: F/P l 09:13: - Sink; E 00 - Municipal Trash Bin Vancomycin No 2000 mg: Me moria - infuse l 08:00: over 2.5 [place] 00 hours For adult patients only: Round to nearest 250 mg per Medical Staff approval MEDICATION WASTE Product Size: 1000 mg Product Wasted: ___ mg Norepinephr No Notes: Kwasi zack ine - Same as: l 07:50: Levophed. [place] 00 Administer by either central venous catheter or peripheral ly-inserte d central catheter (PICC) line. Nystatin No Notes: Memoria 100 UNT/MG 04-04 (Same l Topical 07:02: as:Mycosta Herm marco Powder 00 tin, Nilstat) For external use only. Saline No Notes: Memoria Flush 0.9% 04-04 Same as: l 07:02: BD Posiflush Sterile meropenem No Notes: Memori a 04-04 Same as l 07:00: Merrem [place] Vancomycin No Notes: Memor ia 04-04 Vancomycin l 06:47: Pharmacy [place] 37 Dosing Protocol PHARMAC Y USE ONLY Note: This is not a medication order. This is a consultati on order. Midodrine No Notes: Memori a 04-04 (Same l 06:27: as:Proamat [place] ine) Hydrocortis No Notes: Kwasi zack one 04-04 (Same as: l 05:00: Solu-MARIAN [place] 00 F) sulfamethox No Notes: D5W Memoria azole-trime 04-04 only: l thoprim 80 05:00: Stable for H ermann mg-16 mg/mL 00 __ hour (Bactrim) after intravenous mixing. 6h solution + (<=0.64mg/ Dextrose 5% mL), in Water 4h(0.65 - 0.8mg/mL), 2h (0.81- 1mg/mL). TMP/SMZ 16mg/80mg per mL Dose based on trimethopr im component For adult patients only: Round to nearest 16 mg of trimethopr im per Medical Staff approval (Same As: BACTRIM, SEPTRA) "Protect from light"---- -DO NOT REFRIGERAT E Prednisone No Notes: Memor ia 04-04 Take with l 03:18: food. [place] 00 Lasix No Notes: Memoria 04-04 (Same as: l 03:16: Lasix) [place] 00 MEDICATION WASTE Product Size: 40 mg Product Wasted: ___ mg Sodium No 1,000 mL, Memori a Chloride 04-04 Rate: 100 l 0.9% IV 02:56: ml/hr, [place] 1,000 mL 00 Infuse over: 10 hr, Route: IV, Dosing Weight 109.091 kg, Total Volume: 1,000, Start date: 04/03/21 21:56:00 CDT, Duration: 30 day, Stop date: 05/03/21 21:55:00 CDT, BSA: 2.26 m2, 0 Acetaminoph No Notes: Do M emoria en 8-13 not exceed l 02:43: 4 gm/day. [place] 00 (Same as: Tylenol) Ondansetron No Notes: Kwasi zack 8-13 (Same as: l 02:43: Zofran) MEDICATION WASTE Product Size: 4 mg Product Wasted: ___ mg Cellcept Yes 1,000 mg, Kwasi zack 8-13 PO, BID, 0 l 02:30: Refill(s) Rocephin + No Notes: Memor ia sterile 8-13 (Same As: l water 10 mL 02:03: Rocephin). Use with 100 mL NS and infuse over 30 min MEDICATION WASTE Product Size: 1000 mg Product Wasted: ___ mg Azithromyci No Notes: Kwasi zack n 8-13 (Same As: l 02:02: Zithromax [place] 00 IV) Hydrochloro Yes TAKE 1 Kwasi zack thiazide 25 8-13 TABLET BY l MG / 01:23: MOUTH ONCE [place] Olmesartan 00 DAILY medoxomil 40 MG Oral Tablet amLODIPine Yes TAKE 1 Memor ia 5 mg oral 8-13 TABLET BY l tablet 01:23: MOUTH ONCE Gl[place] nn 00 DAILY FOR 90 DAYS predniSONE Yes 5 mg = 1 Mem oria 5 mg oral 8-13 tab, PO, l tablet 01:23: Daily, TAKE 3 TABLETS BY MOUTH ONCE DAILY FOR SYSTEMIC LUPUS ERYTHEMATO MOISE Sulfamethox Yes TAKE 1 Kwasi zack azole 800 8-13 TABLET BY l MG / 01:23: MOUTH [place] Trimethopri 00 TWICE m 160 MG DAILY Oral Tablet Tylenol No Notes: Do Memor ia 04-03 not exceed l 23:47: 4 gm/day. (Same as: Tylenol) Saline No Notes: Memoria Flush 0.9% 04-03 Same as: l 23:40: BD Posiflush Sterile predniSONE 2020-0 Yes 5mg Take 5 mg Un yasmani 5 mg tablet 2-24 by mouth ity of 18:51: daily. [address] mycophenola 2020-0 Yes 500mg Take 500 U nivers te mofetil 2-24 mg by ity of (CELLCEPT) 18:51: mouth 2 [place] 500 mg 16 (two) Medical tablet times Branch daily. carvedilol 2020-0 Yes 12.5mg Take 12.5 Univers 12.5 mg 2-24 mg by ity of tablet 18:51: mouth 2 [place] [id number] (two) Medical times Branch daily with meals. predniSONE 2020-0 Yes 5mg Take 5 mg Un yasmani 5 mg tablet 2-24 by mouth ity of 18:51: daily. [address] mycophenola 2020-0 Yes 500mg Take 500 U nivers te mofetil 2-24 mg by ity of (CELLCEPT) 18:51: mouth 2 [place] 500 mg 16 (two) Medical tablet times Branch daily. carvedilol 2020-0 Yes 12.5mg Take 12.5 Univers 12.5 mg 2-24 mg by ity of tablet 18:51: mouth 2 [place] [address] (two) Medical times Branch daily with meals. predniSONE 2020-0 Yes 5mg Take 5 mg Un yasmani 5 mg tablet 2-24 by mouth ity of 18:51: daily. [address] mycophenola 2020-0 Yes 500mg Take 500 U nivers te mofetil 2-24 mg by ity of (CELLCEPT) 18:51: mouth 2 [place] 500 mg 16 (two) Medical tablet times Branch daily. carvedilol 2020-0 Yes 12.5mg Take 12.5 Univers 12.5 mg 2-24 mg by ity of tablet 18:51: mouth 2 [place] [address] (two) Medical times Branch daily with meals. predniSONE 2020-0 Yes 5mg Take 5 mg Un yasmani 5 mg tablet 2-24 by mouth ity of 18:51: daily. [place] 16 Medical Branch mycophenola 2020-0 Yes 500mg Take 500 U nivers te mofetil 2-24 mg by ity of (CELLCEPT) 18:51: mouth 2 [place] 500 mg 16 (two) Medical tablet times Branch daily. carvedilol 2020-0 Yes 12.5mg Take 12.5 Univers 12.5 mg 2-24 mg by ity of tablet 18:51: mouth 2 [place] [address] (two) Medical times Branch daily with meals. predniSONE 2020-0 Yes 5mg Take 5 mg Un yasmani 5 mg tablet 2-24 by mouth ity of 18:51: daily. [address] [address] Branch mycophenola 2020-0 Yes 500mg Take 500 U nivers te mofetil 2-24 mg by ity of (CELLCEPT) 18:51: mouth 2 [place] 500 mg 16 (two) Medical tablet times Branch daily. carvedilol 2020-0 Yes 12.5mg Take 12.5 Univers 12.5 mg 2-24 mg by ity of tablet 18:51: mouth 2 [place] 16 (two) Medical times Branch daily with meals. predniSONE 2020-0 Yes 5mg Take 5 mg Un yasmani 5 mg tablet 2-24 by mouth ity of 18:51: daily. [address] mycophenola 2020-0 Yes 500mg Take 500 U nivers te mofetil 2-24 mg by ity of (CELLCEPT) 18:51: mouth [place] 500 mg 16 (two) Medical tablet times Branch daily. carvedilol 2020-0 Yes 12.5mg Take 12.5 Univers 12.5 mg 2-24 mg by ity of tablet 18:51: mouth 2 [place] 16 (two) Medical times Branch daily with meals. hydrOXYzine 2020-0 Yes [id number] 25mg Take 1 Univers 25 mg 2-24 tablet by ity of tablet 00:00: mouth [place] 00 every 6 Medical (six) Branch hours as needed for Itching. hydrOXYzine 2020-0 Yes [id number] 25mg Take 1 Univers 25 mg 2-24 tablet by ity of tablet 00:00: mouth [place] 00 every 6 Medical (six) Branch hours as needed for Itching. hydrOXYzine 2020-0 Yes [id number] 25mg Take 1 Univers 25 mg 2-24 tablet by ity of tablet 00:00: mouth [place] 00 every 6 Medical (six) Branch hours as needed for Itching. hydrOXYzine 2020-0 Yes [id number] 25mg Take 1 Univers 25 mg 2-24 tablet by ity of tablet 00:00: mouth [place] 00 every 6 Medical (six) Branch hours as needed for Itching. hydrOXYzine 2020-0 Yes [id number] 25mg Take 1 Univers 25 mg 2-24 tablet by ity of tablet 00:00: mouth [place] 00 every 6 Medical (six) Branch hours as needed for Itching. hydrOXYzine 2020-0 Yes [id number] 25mg Take 1 Univers 25 mg 2-24 [...] Name Observation Time Observation Value Comments Source Systolic blood 2022-06-14 02:58:00 134 mm[Hg] Univer sity of pressure [facility] Diastolic blood 2022-06-14 02:58:00 93 mm[Hg] Unive rsity of pressure [facility] Heart rate 2022-06-14 02:58:00 101 /min [facility]i ty [facility] [place] [facility] [place] Respiratory rate 2022-06-14 02:58:00 22 /min Univ ersity of [facility] Oxygen saturation in 2022-06-14 02:58:00 100 /min University of Arterial blood by [facility] Pulse oximetry Branch Body temperature 2022-06-14 00:23:00 37.06 Netta [facility] ersity of [facility] Systolic blood 2022-06-08 23:30:00 146 mm[Hg] Univer sity of pressure [facility] Diastolic blood 2022-06-08 23:30:00 106 mm[Hg] Unive rsity of pressure [facility] Heart rate 2022-06-08 23:30:00 90 /min Universi ty of [facility] Respiratory rate 2022-06-08 23:30:00 24 /min Univ ersity of [facility] Oxygen saturation in 2022-06-08 23:30:00 99 /min University of Arterial blood by [facility] Pulse oximetry Branch Body temperature 2022-06-08 19:17:00 37 Netta [facility] ersity of [facility] Body height 2022-06-08 19:17:00 160 cm Universi ty [facility] Body weight 2022-06-08 19:17:00 76.204 [facility] BMI 2022-06-08 19:17:00 29.76 kg/m2 Universi [facility] HEIGHT 2022-04-04 11:57:00 160 cm WEIGHT 2022-04-03 18:30:00 93.6 kg HEIGHT 2022-04-04 11:57:00 160 cm WEIGHT 2022-04-03 18:30:00 93.6 kg HEIGHT 2022-04-04 11:57:00 160 cm WEIGHT 2022-04-03 18:30:00 93.6 kg Systolic blood 2022-04-09 11:57:00 115 mm[Hg] [facility] Diastolic blood 2022-04-09 11:57:00 68 mm[Hg] [facility] Heart rate 2022-04-09 11:57:00 85 /min [facility] Body temperature 2022-04-09 11:57:00 35.61 Netta [facility] Respiratory rate 2022-04-09 11:57:00 18 /min [facility] Oxygen saturation in 2022-04-09 11:57:00 94 /min [facility] Arterial blood by Medical Ce nter Pulse oximetry Body height 2022-04-06 12:19:00 160 cm [facility] Body weight 2022-04-06 12:19:00 93.6 kg [facility] BMI 2022-04-06 12:19:00 36.56 kg/m2 [facility] Temperature Oral (F) 2021-04-11 16:38:00 98.2 F [facility] Heart Rate 2021-04-11 16:38:00 [facility] Respitory Rate 2021-04-11 16:38:00 [facility] [place] Systolic (mm Hg) 2021-04-11 16:38:00 Kwasi rial [place] Diastolic (mm Hg) 2021-04-11 16:38:00 Mem [facility] [place] Temperature Oral (F) 2021-04-11 12:47:00 98.4 F [facility] Heart Rate 2021-04-11 12:47:00 [facility] Respitory Rate 2021-04-11 12:47:00 [facility] [place] Systolic (mm Hg) 2021-04-11 12:47:00 Kwasi [facility] [place] Diastolic (mm Hg) 2021-04-11 12:47:00 Mem [facility] [place] Temperature Oral (F) 2021-04-11 09:10:00 98.7 F [facility] Heart Rate 2021-04-11 09:10:00 [facility] Respitory Rate 2021-04-11 09:10:00 [facility] [place] Systolic (mm Hg) 2021-04-11 09:10:00 Kwasi [facility] [place] Diastolic (mm Hg) 2021-04-11 09:10:00 Mem [facility] [place] Height 2021-04-05 05:22:00 160.02 cm [facility] [place] Weight 2021-04-05 05:22:00 [facility] [place] BMI Calculated 2021-04-05 05:22:00 [facility] [place] Respitory Rate 2021-04-05 02:38:00 [facility] [place] Systolic (mm Hg) 2021-04-05 02:38:00 Kwasi [facility] [place] Diastolic (mm Hg) 2021-04-05 02:38:00 Mem [facility] [place] Respitory Rate 2021-04-05 02:12:00 [facility] [place] Systolic (mm Hg) 2021-04-05 02:12:00 Kwasi [facility] [place] Diastolic (mm Hg) 2021-04-05 02:12:00 Mem orial [place] Respitory Rate 2021-04-05 01:17:00 [facility] [place] Systolic (mm Hg) 2021-04-05 01:17:00 Kwasi [facility] [place] Diastolic (mm Hg) 2021-04-05 01:17:00 Mem [facility]rial [place] Temperature Oral (F) 2021-04-05 00:30:00 98.0 F [facility] [place] Heart Rate 2021-04-04 23:14:00 [facility] [place] Heart Rate 2021-04-04 22:00:00 [facility] [place] Heart Rate 2021-04-04 21:00:00 [facility] Temperature Oral (F) 2021-04-04 21:00:00 98.4 F [facility] Temperature Oral (F) 2021-04-04 14:20:00 98.5 F [facility] [place] Height 2021-04-04 06:44:00 160.02 cm [facility] Weight 2021-04-04 06:44:00 [facility] Height 2021-04-04 03:05:00 160.02 cm [facility] BMI Calculated 2021-04-04 03:05:00 [facility] [place] Weight 2021-04-04 03:05:00 [facility] Height 2021-04-03 23:36:00 160.02 cm [facility] BMI Calculated 2021-04-03 23:36:00 [facility] [place] Weight 2021-04-03 23:36:00 [facility] [place] Procedures Procedure Date / Time Performing Clinician Source Performed CT ABDOMEN PELVIS WO 2022-06-14 01:59:31 Luz Maria Lambert [facility] POCT TEST 2022-06-14 01:01:00 Luz Maria Lamberte [facility] LIPASE 2022-06-14 00:58:00 Luz Maria Lambert [facility] COMP. METABOLIC PANEL 2022-06-14 00:58:00 Luz Maria Lambert [facility] ([id number]) [facility] CBC WITH DIFF 2022-06-14 00:58:00 Luz Maria Lambert [facility] URINALYSIS 2022-06-14 00:58:00 Luz Maria Lambert [facility] CONSENT/REFUSAL FOR 2022-06-14 00:16:37 Doctor Unassigned, [facility] DI[facility] WHOLE BLOOD 2022-06-08 23:41:00 Joelle Pelletier [facility] CT ABDOMEN PELVIS WO 2022-06-08 22:12:00 Joelle Pelletier [facility] CONTRAST [facility] Branch LIPASE 2022-06-08 20:40:00 Joelle Pelletier [facility] COMP. METABOLIC PANEL 2022-06-08 20:40:00 Joelle Pelletier [facility] ([id number]) [facility] CBC WITH DIFF 2022-06-08 19:47:00 Joelle Pelletier [facility] CONSENT/REFUSAL FOR 2022-06-08 19:08:29 Doctor Unassigned, [facility] DIAGNOSIS AND TREATMENT [place] [facility] BASIC METABOLIC PANEL 2022-04-09 03:51:00 [facility] MAGNESIUM 2022-04-09 03:51:00 [facility]f [facility] PHOSPHORUS 2022-04-09 03:51:00 [facility]f [facility] CBC W/PLT COUNT & AUTO 2022-04-08 11:36:00 Dai Mendoza [facility] CBC W/PLT COUNT & AUTO 2022-04-08 11:36:00 Dai Mendoza [facility] XR ABDOMEN/KUB 1 VIEW 2022-04-08 07:49:00 Tammie Melara [facility] BASIC METABOLIC PANEL 2022-04-08 03:37:00 Cinthia Santana [facility] CBC W/PLT COUNT & AUTO 2022-04-07 15:13:00 [facility] CBC W/PLT COUNT & AUTO 2022-04-07 15:13:00 [facility] [place] SARS-COV2/RT-PCR ([facility] & 2022-04-07 12:30:00 Gerhard, [facility] REF LABS) Center VANCOMYCIN LEVEL, RANDOM 2022-04-07 04:58:00 [facility] VANCOMYCIN LEVEL, RANDOM 2022-04-06 03:59:00 Bghigh, [facility] CBC W/PLT COUNT & AUTO 2022-04-06 03:59:00 [facility] BASIC METABOLIC PANEL 2022-04-06 03:59:[address] [facility] PHOSPHORUS 2022-04-06 03:59:00 [facility] [place] MAGNESIUM 2022-04-06 03:59:[address] [facility] CBC W/PLT COUNT & AUTO 2022-04-06 03:59:00 [facility] DIFFERENTIAL [facility] CT ABDOMEN/PELVIS WITHOUT 2022-04-05 10:49:00 Kelechi Dewitt [facility] CONTRAST Center CALCIUM, IONIZED 2022-04-05 04:31:00 [facility] BASIC METABOLIC PANEL 2022-04-05 04:31:00 Gerhard, [facility] VANCOMYCIN LEVEL, RANDOM 2022-04-05 04:31:00 [facility] SCREEN, URINE 2022-04-05 00:47:00 Gerhard, [facility] COMPREHENSIVE METABOLIC 2022-04-04 04:28:00 [facility]EL Center MAGNESIUM 2022-04-04 04:28:00 [facility] PHOS[facility]US 2022-04-04 04:28:00 [facility] CBC W/PLT COUNT & AUTO 2022-04-04 04:28:00 [facility] CALCIUM, IONIZED 2022-04-04 04:28:00 [facility] CBC W/PLT COUNT & AUTO 2022-04-04 04:28:00 [facility] HEMODIALYSIS INPATIENT 2022-04-03 19:03:14 Cinthia Santana [facility] CBC W/PLT COUNT & AUTO 2022-04-03 05:05:00 [facility] CALCIUM, IONIZED 2022-04-03 05:05:00 [facility] COMPREHENSIVE METABOLIC 2022-04-03 05:05:00 [facility] PANEL Center MAGNESIUM 2022-04-03 05:05:00 [facility] PHOSPHORUS 2022-04-03 05:05:00 [facility] IRON, TIBC, % SAT. 2022-04-03 05:05:00 [facility] (WITHOUT FERRITIN) [place] FERRITIN 2022-04-03 05:05:00 [facility] RETICULOCYTE COUNT 2022-04-03 05:05:00 [facility] CBC W/PLT COUNT & AUTO 2022-04-03 05:05:00 [facility] SARS-COV2/RT-PCR ([facility] & 2022-04-02 20:47:00 [facility] Center BLOOD CULTURE 2022-04-02 04:31:00 [facility] CBC W/PLT COUNT & AUTO 2022-04-02 04:31:00 [facility] CBC W/PLT COUNT & AUTO 2022-04-02 04:31:00 [facility] BLOOD CULTURE 2022-04-02 01:14:00 Gwen Rascon [facility] BLOOD CULTURE 2022-04-02 01:14:00 [facility] IDENTIFICATION PANEL [facility] CBC (HEMOGRAM ONLY) 2022-04-01 22:25:00 Gwen Rascon [facility] BASIC METABOLIC PANEL 2022-04-01 22:25:00 [facility] HE[facility] B SURFACE 2022-03-13 20:04:00 [facility] ANTIBODY Center HEPATITIS B CORE 2022-03-13 20:04:00 [facility] ANTIBODY, IGM Center HEPATITIS B SURFACE 2022-03-10 04:23:00 [facility] ANTIGEN [place] HEPATITIS B SURFACE 2022-03-10 04:23:00 [facility] ANTIBODY [place] HEPATITIS B CORE 2022-03-10 04:23:00 [facility] ANTIBODY, TOTAL Center PHYSICIAN ORDERS 2021-11-14 05:01:00 Doctor Unassigned, [facility] PHYSICIAN ORDERS 2021-09-02 06:01:00 Doctor Unassigned, [facility] Name Medical Branch Insertion of cannula for 2021-04-05 00:44:00 [facility] [place] hemodialysis, other purpose (separate procedure); vein to vein Insertion of non-tunneled 2021-04-04 10:12:00 Va morimanpreet Hannah centrally inserted central venous catheter; age 5 years or older Plan of Care Planned Activity Planned Date Details Comments Source Future Scheduled 2022-04-[address] [facility] Test 00:00:00 (#1) [code = [facility] INFLUENZA VACCINE (#1)] Future Scheduled 2022-04-[address] [facility] Test 00:00:00 (#1) [code = [facility] INFLUENZA VACCINE (#1)] Future Scheduled 2021-08-[address] [facility] Test 00:00:00 (12+) [code = [facility] Center DEPRESSION SCREENING (12+)] Future Scheduled 2021-08-[address] [facility] Test 00:00:00 (12+) [code = [facility] Center DEPRESSION SCREENING (12+)] Future Scheduled [address] [facility] Test 00:00:00 malignant neoplasm of Medica l Center cervix (procedure) [code = 499462147] Future Scheduled [address] [facility] Test 00:00:00 malignant neoplasm of Medica l Center cervix (procedure) [code = 496950932] Future Scheduled [address] [facility] Test 00:00:00 (procedure) [code = Medical Center [id number]] Future Scheduled 2009 DTAP/TDAP/TD VACCINES [facility] Test 00:00:00 (1 - Tdap) [code = Medical C enter DTAP/TDAP/TD VACCINES (1 - Tdap)] Future Scheduled 2009 DTAP/TDAP/TD VACCINES [facility] Test 00:00:00 (1 - Tdap) [code = Medical C enter DTAP/TDAP/TD VACCINES (1 - Tdap)] Future Scheduled 2008 HEPATITIS C [facility]CRE[facility]ING [facility] Test 00:00:00 [code = HEPATITIS C Medical Center SCREENING] Future Scheduled 2008 HEPATITIS C [facility]CRE[facility]ING [facility] 00:00:00 [code = HEPATITIS C Medical Center SCREENING] Future Scheduled 1990 COVID-19 VACCINE (#1) [facility] Test 00:00:00 [code = COVID-[address] VACCINE (#1)] Future Scheduled 1990 COVID-19 VACCINE (#1) [facility] Test 00:00:00 [code = COVID-[address] VACCINE (#1)] Encounters Start End Encounter Admission Attending Care Care Encounter Source Date/Time Date/Time Type Type Clinicians Facility Department ID 2022-06-25 2022-06-25 Outpatient YEMI OSHEA MARSHALL [id number] YEMI 10:04:00 13:20:00 SHAHID 2022-06-13 2022-06-13 Emergency X JOÃO LAMBERT ERT [id number] Univers 19:29:00 22:47:00 LUZ MARIA masters [facility] 2022-06-13 2022-06-13 Emergency JOÃO Lambert [id number] Univers 19:29:00 22:47:00 Luz Maria ANDERSON [id number] ity [facility] [id number] [facility] [id number] [address] 2022-06-08 2022-06-08 Emergency X CARLEEN [facility] ERT [id number] Univers 14:19:00 19:21:00 JAZLYN masters [facility] 2022-06-08 2022-06-08 Emergency Joelle Pelletier [facility] 1.2.8 40.114 [id number] [facility] 14:19:00 19:21:00 Jazlyn Ware [id number] ity [facility] [id number] [facility] [id number] [address] 2022-05-07 2022-05-07 Outpatient Marvin [facility] [id number] 10:15:00 23:59:00 OMID Medica [facility] 2022-04-01 2022-04-09 Inpatient UR REJI [facility] Med [id number] [facility] 19:29:00 15:16:00 [facility] 2022-04-01 2022-04-09 [facility] [id number] 19:29:00 15:16:00 Encounter Lashell Henness[facility] 2022-03-14 2022-03-14 Lab [facility] [id number] 00:00:00 00:00:00 Requisitio Raissa [facility] 2022-03-10 2022-03-10 Lab [facility] [id number] 00:00:00 00:00:00 Requisitio Raissa [facility] 2022-01-12 2022-01-12 Outpatient SOPHIE BLANCO [id number] Sophie 15:45:00 15:45:00 TOBI dinh 2021-11-14 2021-11-14 Process Designer Harjit, Diya Lab Main [facility] 1.2.8 40.114 [id number] [facility] 16:15:00 16:30:00 Visit Re Felicita ANDERSON [id number] ity [place] PROFESS[place] [id number] [place] [address] 2021-11-14 2021-11-14 Outpatient R RE [facility] [id number] Univers 16:15:00 16:15:00 FELICITA itmilena [facility] 2021-11-14 2021-11-14 Orders Doctor KEY 1.2.840.114 [id number] Univers 00:00:00 00:00:00 Only Unassigned, ZAN [id number] ity of [place] [facility] 4.2.7.2.686 [place] as [id number] [address] 2021-09-02 2021-09-02 Process Designer Harjit, Adc Lab Main [facility] 1.2.8 40.114 [id number] Univers 16:15:00 16:30:00 Visit Grace Joseph [id number] ity [place] PROFESS[place] [id number] [address] 2021-09-02 2021-09-02 [facility] [id number] Univers 16:15:00 16:15:00 GRACE ity [facility] 2021-09-02 2021-09-02 Orders Doctor KEY 1.2.840.114 [id number] Univers 00:00:00 00:00:00 Only Unassigned, ZAN [id number] ity of [place] [facility] 4.2.7.2.686 [place] as [id number] [address] 2021-04-05 2021-04-11 Inpatient [facility] [id number] Memoria 04:38:00 21:51:[address] [facility] 2021-04-04 2021-04-11 Inpatient JACK ROLLE [facility] MED [id number] [facility] 23:38:00 16:51:00 2021-04-03 2021-04-05 Inpatient [facility] [id number] Memoria 23:24:12 04:00:00 lia Hannah 00 l [facility] 2021-04-03 2021-04-04 Inpatient E DEMLA, [facility] MED [id number] [facility] 21:43:00 23:00:00 HONORIO 2021-03-19 2021-03-19 Outpatient Lia JOSEPH [facility] [id number] Univers 17:15:00 17:15:00 [facility] 2021-01-22 2021-01-22 Outpatient R OPAL [facility] [id number] Univers 12:45:00 12:45:00 [facility] 2021-01-21 2021-01-21 Outpatient Lia LONDONOOmari [facility] [id number] Univers 11:30:00 11:30:00 [facility] 2020-02-07 2020-02-07 Process Designer Harjit, [facility] 1.2.840.114 [id number] 17:26:43 17:41:43 Visit Lab Main [place] 350.1.13.10 [place] 4.2.7.2.686 Krystle [id number] [facility] 353 [facility] 2020-02-07 2020-02-07 Outpatient Lia MCDONOUGHWILBER [facility] [id number] Univers 17:00:00 17:00:00 [facility] 2020-02-07 2020-02-07 Orders Doctor KEY 1.2.840.114 [id number] 00:00:00 00:00:00 Only Unassigned, ZAN 350.1.13.10 [place] [facility] 4.2.7.2.686 [id number] 2019-11-02 2019-11-02 Process Designer Harjit [facility] 1.2.840.114 [id number] 10:22:24 10:37:24 Visit Lab Main [place] [id number] [place] 4.2.7.2.686 [place] [id number] [facility] 353 [facility] 2019-11-02 2019-11-02 [facility] [id number] Univers 10:15:00 10:15:00 [facility] 2019-11-02 2019-11-02 Orders Doctor SHAHID 1.2.840.114 [id number] 00:00:00 00:00:00 Only Unassigned, ZAN 350.1.13.10 [place] [facility] 4.2.7.2.686 [id number] 2019-10-16 2019-10-16 Outpatient R UNKNOWN, [facility] [id number] Univers 18:30:00 18:30:00 ATTENDING ity [facility] Results Test Description Test Time Test Comments Results Result Comments Source POCT TEST 2022-06-14 01:01:00 Test Item Value Reference Range Interpretation Comme nts On board controls acceptable with C Line (test code = 3574) present POCT PREG LOT # (test code = 3575) [id number] POCT PREG TEST DATE (test code = 3576) 2023-10-21 POCT PREG (test code = 1605) negative Lab Interpretation (test code = 46098-5) Normal [facility] (85377)2022-06-08 21:40:57 Test Item Value Reference Range Interpretation Comments NA (test code = 138 mmol/L 135-145 2734525790) K (test code = 5.1 mmol/L 3.5-5 H 8538341407) CL (test code = 117 mmol/L 98-108 H 3611737809) CO2 TOTAL (test code = 12 mmol/L 23-31 L 2282132824) AGAP (test code = 2-16 5570858579) BUN (test code = 32 mg/dL 7-23 H 3530284697) GLUCOSE (test code = 70 mg/dL 70-110 8819733480) CREATININE (test code = 2.80 mg/dL 0.5-1.04 H 6565228155) TOTAL BILI (test code = 0.5 mg/dL 0.1-1.6 9854759622) CALCIUM (test code = 12.8 mg/dL 8.6-10.6 H 1163812696) T PROTEIN (test code = 6.6 g/dL 6.3-8.2 1585685613) ALBUMIN (test code = 3.7 g/dL 3.5-5 9084747531) ALK PHOS (test code = 57 U/L 34-122 6495388179) ALTv (test code = 28 U/L 5-35 1742-6) AST(SGOT) (test code = 53 U/L 13-40 H 2535709023) eGFR (test code = mL/min/1.73m2 3952226066) BRE (test code = BRE) Association of Glomerular Filtration Rate (GFR) and Staging of Kidney Disease* + --+ --+ ------+| GFR (mL/min/1.73 m2) ?| With Kidney Damage ?| ?Without Kidney Damage+ --------+ --------+ +| ?>90 ?| ?Stage one ?| ? Normal ?+ ---+ ---+ -------+| ?60-89 ?| ?Stage two ?| ? Decreased GFR ? + --+ --+ ------+| ?30-59 ?| ?Stage three ?| ? Stage three ? + --+ --+ ------+| ?15-29 ?| ?Stage four ? | ? Stage four ?+ ---+ ---+ -------+| ?<15 (or dialysis) ? ?| ?Stage five ? | ? Stage five ?+ ---+ ---+ -------+ *Each stage assumes the associated GFR level has been in effect for at least three months. ?Stages 1 to 5, with or without kidney disease, indicate chronic kidney disease. Notes: Determination of stages one and two (with eGFR >59mL/min/1.73 m2) requires estimation of kidney damage for at least three months as defined by structural or functional abnormalities of the kidney, manifested by either:Pathological abnormalities or Markers of kidney damage (including abnormalities in the composition of the blood or urine or abnormalities in imaging tests). Lab Interpretation Abnormal (test code = 60853-4) [facility] 21:40:31 Test Item Value Reference Range Interpretation Comments LIPASE (test code = 9360402528) 278 U/L 0-220 H Lab Interpretation (test code = Abnormal 85778-3) [facility] TH[facility]ACIC W/O CONT*WW*2022-05-07 13:58:35[facility]ETO : 1990 Sex: FMRI thoracic spine without contrastLocation code: X5Aqhnyown history: Pain with difficulty walkingTechnique: Multiplanar multisequence MR imaging of the thoracic spine was performed without contrast. No prior study is available for comparison.Findings: Marrow signal and vertebral body heights are well-maintained throughout except for small intraosseous hemangioma at T7. The prevertebral and paraspinal soft tissues are unremarkable. The thoracic cord is normal in caliber contour, and signal. There are no lumbar compression fractures identified. No subluxations.No evidence of dominant disc herniations or stenosis.The signal throughout the cord is maintained without syrinx or myelomalacia.No paraspinal soft tissue mass or hematoma.Minimal spondylotic changes of the lower thoracic spine.Impression: 1. 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 No evidence of cord lesion or syrinx.Electronically signed by: Dorian Barraza MD 05/07/2022 1:58 PM CDT SPINE LUMBAR W/O CONTRAST*WW*2022-05-07 13:49:50 [facility] 1990 Sex: FMRI Lumbar Spine without contrastLocation code: [id number]: Unable to walkCOMPARISON: None.Technique: Multiplanar multisequence MR imaging of the lumbar spine was performed without contrast. Findings: Lumbar vertebral height and marrow signal are preserved throughout. 5 lumbar segments are assumed. The conus terminates normally at T12-L1. The paraspinal soft tissues are unremarkable. L1-L2: No significant central canal or foraminal stenosis.L2-L3: No significant central canal or foraminal stenosis.L3-L4: No significant central canal or foraminal stenosis.L4-L5: Normal hydration of the disks with broad-based 2mm annular bulge without stenosis or nerve root compromise.L5-S1: Disc space narrowing with central 4 mm disc protrusion/herniation along with mild facet arthropathy creating mild stenosis with mild bilateral S1 nerve root encroachment, greatest on the left.IMPRESSION: 1. Disc space narrowing with central 4 mm disc protrusion/herniation at L5-S1 along with mild facet arthropathy creating mild stenosis with mild bilateral S1 nerve root encroachment, greatest on the left.Electronically signed by: Dorian Barraza MD 05/07/2022 1:49 PM CDT [id number] METABOLIC [id number] 05:35:00 Test Item Value Reference Range Interpretation Comments SODIUM (BEAKER) 139 meq/L 136-145 (test code = 381) POTASSIUM 3.6 meq/L 3.5-5.1 (BEAKER) (test code = 379) CHLORIDE (BEAKER) 106 meq/L 98-107 (test code = 382) CO2 (BEAKER) 24 meq/L 22-29 (test code = 355) BLOOD UREA 29 mg/dL 7-21 H NITROGEN (BEAKER) (test code = 354) CREATININE 2.55 mg/dL 0.57-1.25 H (BEAKER) (test code = 358) GLUCOSE RANDOM 91 mg/dL 70-105 (BEAKER) (test code = 652) CALCIUM (BEAKER) 8.2 mg/dL 8.4-10.2 L (test code = 697) EGFR (BEAKER) 25 Interpretatio n of eGFR (test code = mL/min/1.73 values Stage De scription 1092) sq m Result G1 Kamla l or high >=90 G2 Mildly decreased 60-89 G3a Mildl y to moderately 45-5 9 G3b Moderately to s everely 30-44 G4 Severl y decreased 15-29 G5 Kidne y failure <15Reported eGF R is based on the CKD-EPI 202 equation that d oes not use a race coefficientEsti mated GFR is not as accur ate as Creatinine Aniyah cabrales in predicting glom erular filtration rate . Estimated GFR is not appl icable for dialysis patien ts [employer] Superintendent ID - CINDY [id number] 05:32:01 Test Item Value Reference Range Interpretation Comments PHOSPHORUS (BEAKER) (test code = 3.0 mg/dL 2.3-4.7 604) [employer] Superintendent ID - CINDY [id number] 05:32:00 Test Item Value Reference Range Interpretation Comments MAGNESIUM (BEAKER) (test code = 1.7 mg/dL 1.6-2.6 627) [employer] Superintendent ID - CINDY LCBC W/PLT COUNT & AUTO [id number] 11:56:12 Test Item Value Reference Range Interpretation [...] code = 2801) RAD, ABDOMEN/KUB, 1 VIEW [id number] 10:34:00Reason for exam:->to evaluate for obstruction[facility] : 1990 Sex: FFINAL REPORT RAD, ABDOMEN/KUB, 1 VIEW AP CLINICAL INDICATION: to evaluate for obstruction COMPARISON: None TECHNIQUE: Frontal radiograph(s) of the abdomen. FINDINGS: The bowel gas pattern demonstrates mildly dilated small bowel loops in the left abdomen. Evaluation for free air is limited by portable supine technique. Within these limitations, no free air is identified. IMPRESSION: Prominent air-filled small bowel loops, which may represent ileus. 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 Negat iron results do not preclude SARS-C oV-2 infection and should not be u sed as the sole bas is for patient management decisions. Nega tive results must be combined with clinical observations, patient history , and epidemiolog ical information. A false negative result may occu r if a specimen is improperly collected, transported or handled. This S ARS CoV-2 test is a rapid, real-montana e RT-PCR test intended for th e qualitative detection of nucleic acid fr om SARS-CoV-2 in a nasopharyngeal swab specimen collec diamond from individual s suspected of COVID-19 by the ir healthcare provider. BRE (test code = This test has been BRE) authorized by FDA under an EUA for [...] revoked sooner. Fact Sheet for Healthcare Providers: https://www.[employer]/Documents/Xp ert%20Xpress%20SAR S%20CoV-2/Fact%20S heets/302-3802%20S ARS-COV-2%20HEALTH CARE%20PROVIDERS%2 0FACT%20SHEET.pdf Fact Sheet for Healthcare Patients: https://www.[employer]/Documents/Xp ert%20Xpress%20SAR S%20CoV-2/Fact%20S heets/302-3801%20S ARS-COV-2%20PATIEN T%20FACT%20SHEET.p df Lab Interpretation Normal (test code = 01802-6) [facility]2022-04-07 14:36:23 Test Item Value Reference Range Interpretation Comments SARS-COV2/RT-PCR Negative Negative The SARS-Co V-2 target (test code = nucleic acids a re not 6643340) detected in thi s specimen. Negative result [...] revoked sooner. Fact Sheet for Healthcare Providers: https://www.[employer].co m/Documents/Xpert%20Xpress%20SARS%20CoV-2/Fact%20Sheets/3023802%16BJVS-CRC-2%20 HEALTHCARE%20PROVIDERS%20FACT%20SHEET.pdf Fact Sheet for Healthcare Patients: https://www.[employer]/Documents/Xpert%20Xp ress%20SARS%20CoV-2/Fact%20Sheets/3023801%06UXXA-NBE-9%20PATIENT%20FACT%20SHEET .pdfBLOOD [id number] 06:00:37 Test Item Value Reference Range Interpretation [...] Reference Range: No NormalsOperator ID - CINDY LBASIC METABOLIC [id number] 07:02:47 Test Item Value Reference Range Interpretation [...] not appl icable for dialysis patien ts [employer] Superintendent ID - CINDY [id number] 07:01:34 Test Item Value Reference Range Interpretation Comments PHOSPHORUS (BEAKER) (test code = 2.7 mg/dL 2.3-4.7 604) [employer] Superintendent ID - CINDY [id number] 07:01:33 Test Item Value Reference Range Interpretation Comments MAGNESIUM (BEAKER) (test code = 1.5 mg/dL 1.6-2.6 L 627) [employer] Superintendent ID - CINDY LVANCOMYCIN LEVEL, [id number] 05:58:26 Test Item Value Reference Range Interpretation Comments VANCOMYCIN RANDOM (BEAKER) (test 22.5 ug/mL code = 523) Reference Range: No NormalsOperator ID - PIAYA LCBC W/PLT COUNT & AUTO [id number] 05:05:30 Test Item Value Reference Range Interpretation [...] PERCENT (BEAKER) (test code = 2801) CT, [id number] 13:50:00Unlisted Reason for Exam - Click Yes and Enter Reason Below->YesUnlisted Reason for Exam->stoma evaluationIs this for enterography?->NoWill this procedure require oral contrast?->Yes [facility] Jamilah : 1990 Sex: FFINAL REPORT EXAMINATION: CT, ABDOMEN \\T\\ PELVIS, WITHOUT IV CONTRAST. INDICATION: 32-year-old female [...] MDReport Verified Date/Time: 04/05/2022 13:50:23 Reading Location: [facility] [id number] Ortho Consult Reading Room BLOOD [id number] 10:35:02 Test Item Value Reference Range Interpretation [...] = 523) Reference Range: No NormalsOperator ID Levar WHITE LBASIC METABOLIC [id number] 07:02:40 Test Item Value Reference Range Interpretation [...] G3b Moderately to s everely 30-44 G4 Sever ly decreased 15-29 G5 Kidney failure <15Repo rted eGFR is based on the CKD-EPI 2020 equation t hat does not use a race coefficientEsti mated GFR is not as accur ate as Creatinine Aniyah keron in predicting glom erular filtration rate . Estimated GFR is not appl icable for dialysis patien ts [employer] Superintendent ID - CINDY LPregnancy Screen, [id number] 05:11:38 Test Item Value Reference Range Interpretation Comments Preg Test, Ur (test code = 2112-1) Negative Negative Lab Interpretation (test code = Normal 80908-9) [facility] [id number] 05:11:38 Test Item Value Reference Range Interpretation Comments TEST URINE (BEAKER) (test Negative Negative code = 583) CALCIUM, [id number] 05:06:05 Test Item Value Reference Range Interpretation Comments CALCIUM IONIZED (BEAKER) (test 1.17 mmol/L 1.12-1.27 code = 698) PH, BLOOD (BEAKER) (test code = 7.42 1810) COMPREHENSIVE METABOLIC [id number] 06:05:55 Test Item Value Reference Range Interpretation [...] eGF R is based on the CKD-EPI 202 equation that d oes not use a race coefficientEsti mated GFR is not as accur ate as Creatinine Aniyah keron in predicting glom erular filtration rate . Estimated GFR is not appl icable for dialysis patien ts [employer] Superintendent ID - LAMINE [id number] 06:05:55 Test Item Value Reference Range Interpretation Comments MAGNESIUM (BEAKER) (test code = 1.6 mg/dL 1.6-2.6 627) [employer] Superintendent ID - LAMINE [id number] 06:05:55 Test Item Value Reference Range Interpretation Comments PHOSPHORUS (BEAKER) (test code = 1.8 mg/dL 2.3-4.7 L 604) [employer] Superintendent ID - LAMINE MCBC W/PLT COUNT & AUTO [id number] 05:23:04 Test Item Value Reference Range Interpretation [...] PERCENT (BEAKER) (test code = 2801) CALCIUM, [id number] 05:10:24 Test Item Value Reference Range Interpretation Comments CALCIUM IONIZED (BEAKER) (test 1.10 mmol/L 1.12-1.27 L code = 698) PH, BLOOD (BEAKER) (test code = 7.46 1810) [id number] 06:30:28 Test Item Value Reference Range Interpretation Comments FERRITIN (BEAKER) (test code = 1990.14 ng/mL 5.00-275.00 H 361) [employer] Superintendent ID - LAMINE MCOMPREHENSIVE METABOLIC [id number] 06:16:05 Test Item Value Reference Range Interpretation [...] not appl icable for dialysis patien ts [employer] Superintendent ID - CINDY [id number] 06:07:05 Test Item Value Reference Range Interpretation Comments MAGNESIUM (BEAKER) 1.7 mg/dL 1.6-2.6 Specimen slightly (test code = 627) hemolyzed [employer] Superintendent ID - CINDY [id number] 06:07:05 Test Item Value Reference Range Interpretation Comments PHOSPHORUS (BEAKER) 2.7 mg/dL 2.3-4.7 Specimen slightly (test code = 604) hemolyzed [employer] Superintendent ID - CINDY NIKHIL, TIBC, % SAT. (WITHOUT FERRITIN)2022-04-03 06:02:22 Test Item Value Reference Range Interpretation Comments IRON (BEAKER) (test code = 547) 50.0 ug/dL 40.0-160.0 TOTAL IRON BINDING CAPACITY 123 ug/dL 250-450 L (BEAKER) (test code = 769) IRON % SATURATION (2) (BEAKER) 41 % 20-55 (test code = 2590) [employer] Superintendent ID - LAMINE MCBC W/PLT COUNT & AUTO [id number] 05:44:03 Test Item Value Reference Range Interpretation [...] PERCENT (BEAKER) (test code = 2801) RETICULOCYTE [id number] 05:41:57 Test Item Value Reference Range Interpretation Comments RETICULOCYTE COUNT PCT (BEAKER) (test 1.6 % 0.5-1.7 code = 575) [employer] Superintendent ID - 6000CALCIUM, [id number] 05:28:28 Test Item Value Reference Range Interpretation Comments CALCIUM IONIZED (BEAKER) (test 1.15 mmol/L 1.12-1.27 code = 698) PH, BLOOD (BEAKER) (test code = 7.38 1810) SARS-COV2/RT-PCR ([facility])2022-04-03 03:18:56 Test Item Value Reference Range Interpretation Comments SARS-COV2/RT-PCR Negative Negative The SARS-Co V-2 target (test code = nucleic acids a re not 0423748) detected in thi s specimen. Negative result [...] sooner. Fact Sheet for Healthcare Providers: https://www.cepheid.co m/Documents/Xpert%20Xpress%20SARS%20CoV-2/Fact%20Sheets/302-3802%74LYNG-BKO-8%20 HEALTHCARE%20PROVIDERS%20FACT%20SHEET.pdf Fact Sheet for Healthcare Patients: https://www.[employer]/Documents/Xpert%20Xp ress%20SARS%20CoV-2/Fact%20Sheets/302-3801%30YRQH-ECG-8%20PATIENT%20FACT%20SHEET .pdfBLOOD CULTURE IDENTIFICATION [id number] 02:40:30 Test Item Value Reference Interpretation Comments Range LISTERIA MONOCYTOGENES Not detected Not detected (test code = 2788784) STAPHYLOCOCCUS (test Detected Not detected A Coagula se negative code = 0535132) Staph specie s (CoNS)- methici llin resistantFirst- line therapy: Vancom ycin MecA DETECTED Possible contamination. The likelihood of pathogenicity i s increased if th e organism is observed in multiple blood cultures obtain ed from separate venipunctures. Reference Range : Not Detected STAPHYLOCOCCUS AUREUS Not detected Not detected (test code = 9232262) STREPTOCOCCUS (test code Not detected Not detected = 9287885) STREPTOCOCCUS AGALACTIAE Not detected Not detected (GROUP B) (test code = 6596803) STREPTOCOCCUS PNEUMONIAE Not detected Not detected (test code = 0751015) STREPTOCOCCUS PYOGENES Not detected Not detected (GROUP A) (test code = 7512050) ACINETOBACTER BAUMANNII Not detected Not detected (test code = 6937250) HAEMOPHILUS INFLUENZAE Not detected Not detected (test code = 6578692) NEISSERIA MENINGITIDIS Not detected Not detected (test code = 0572695) ENTEROBACTERIACEAE (test Not detected Not detected code = 8834596) ENTEROBACTER CLOACOE Not detected Not detected COMPLEX (test code = 4036180) KLEBSIELLA OXYTOCA (test Not detected Not detected code = 1780814) KLEBSIELLA PNEUMONIAE Not detected Not detected (test code = 1650) PROTEUS (test code = Not detected Not detected 1617356) SERRATIA MARCESCENS Not detected Not detected (test code = 9279415) JEWELS ALBICANS (test Not detected Not detected code = 0989919) JEWELS GLABRATA (test Not detected Not detected code = 6368802) JEWELS KRUSEI (test Not detected Not detected code = 5694939) JEWELS PARAPSILOSIS Not detected Not detected (test code = 2459722) JEWELS TROPICALIS (test Not detected Not detected code = 5026533) ESCHERICHIA COLI (test Not detected Not detected code = 6121273) METHICILLIN-RESISTANCE Detected Not detected A Note: Antimicrobial GENE (test code = resistance can 7349312) occur via multi ple mechanisms. A N ot Detected result for the FilmArray antimicrobial resistance gene assays does not indicate antimicrobial susceptibility. Subculturing is required for species identification and susceptibility testing of isolates. VANCOMYCIN-RESISTANCE GENE (test code = 5390445) CARBAPENEM-RESISTANCE GENE (test code = 2848407) ENTEROCOCCUS-BEAKER Not detected Not detected (test code = 1459390) PSEUDOMONAS Not detected Not detected AERUGINOSA-BEAKER (test code = 1594774) Other bacteria and resistance markers not targeted by this PCR panel cannot be excluded; therefore clinical correlation and follow up of serology, culture results, and other molecular studies is required. The results are not intended to be used as the sole means for clinical diagnosis or patient management decisions. This sample was tested at the [facility] using the SymplifiedArray Blood Culture ID Panel. It is FDA cleared and has been verified and approved by the [facility] for clinical use. This laboratory is CLIA-certified and College ofAmerican Pathologists (CAP)-accredited to perform high complexity testing.CBC W/PLT COUNT & AUTO [id number] 04:57:54 Test Item Value Reference Range Interpretation [...] (BEAKER) (test code = 2801) BASIC METABOLIC [id number] 22:48:25 Test Item Value Reference Range Interpretation [...] not appl icable for dialysis patien ts [employer] Superintendent ID - BSCBC (HEMOGRAM ONLY)2022-04-01 22:37:25 Test [...] /100 WBC 0-0 (test code = 413) Hepatitis B surface [id number] 04:32:33 Test Item Value Reference Range Interpretation Comments Hep B S Ab (test code <8.0 See_Comment [Auto mated = 07191-5) message] The system which generated this result transmit diamond reference range : <8.0 mIU/mL. Th e reference range was not used to interpret this result as normal/abnormal . BRE (test code = BRE) [employer] Superintendent ID - CINDY Chatman Lab Interpretation Normal (test code = 20682-7) [facility] [id number] 04:32:33 Test Item Value Reference Range Interpretation Comments HEPATITIS B SURFACE ANTIBODY < mIU/mL <8.0 (BEAKER) (test code = 647) [employer] Superintendent ID - CINDY LHepatitis B core antibody, [id number] 04:31:31 Test Item Value Reference Range Interpretation Comments Hep B C IgM (test code = Nonreactive Nonreactive 86568-2) BRE (test code = BRE) [employer] Superintendent ID - CINDY Chatman Lab Interpretation (test Normal code = 75966-7) [facility]TIBODY, [id number] 04:31:31 Test Item Value Reference Range Interpretation Comments HEPATITIS B CORE IGM ANTIBODY Nonreactive Nonreactive (BEAKER) (test code = 645) [employer] Superintendent ID - CINDY LHepatitis B surface [id number] 14:48:11 Test Item Value Reference Range Interpretation Comments Hep B S Ab (test code <8.0 See_Comment [Auto mated = 34379-1) message] The system which generated this result transmit diamond reference range : <8.0 mIU/mL. Th e reference range was not used to interpret this result as normal/abnormal . BRE (test code = BRE) [employer] Superintendent ID - DB Lab Interpretation Normal (test code = 33047-6) [facility] [id number] 14:48:11 Test Item Value Reference Range Interpretation Comments HEPATITIS B SURFACE ANTIBODY < mIU/mL <8.0 (BEAKER) (test code = 647) [employer] Superintendent ID - DBHepatitis B surface [id number] 14:23:40 Test Item Value Reference Range Interpretation Comments Hepatitis B surface Nonreactive Nonreactive antigen (test code = 5195-3) BRE (test code = BRE) Specimen is considered negative for HBsAg. Lab Interpretation (test Normal code = 98261-0) [facility] antibody, [id number] 14:23:40 Test Item Value Reference Range Interpretation Comments Hep B Core Total Ab (test Nonreactive Nonreactive code = 22692-2) BRE (test code = BRE) [employer] Superintendent ID - DB Lab Interpretation (test Normal code = 26278-9) [facility] SUR[facility] [id number] 14:23:40 Test Item Value Reference Range Interpretation Comments HEPATITIS B SURFACE ANTIGEN (2) Nonreactive Nonreactive (BEAKER) (test code = 2585) Specimen is considered negative for HBsAg.HEPATITIS B CORE ANTIBODY, TOTAL 2022-03-10 14:23:40 Test Item Value Reference Range Interpretation Comments HEPATITIS B CORE TOTAL ANTIBODY Nonreactive Nonreactive (BEAKER) (test code = 497) [employer] Superintendent ID - DBCHEM [id number] 13:33:00 Test Item Value Reference Range Interpretation Comments Glucose Lvl (test code = Glucose Lvl) 111 70-99 [facility] [employer] [id number] 13:33:00 Test Item Value Reference Range Interpretation Comments BUN (test code = BUN) 94 7-22 [facility] [employer] [id number] 13:33:00 Test Item Value Reference Range Interpretation Comments Creatinine Lvl (test code = Creatinine 3.80 0.50-1.40 Lvl) [facility] [employer] [id number] 13:33:00 Test Item Value Reference Range Interpretation Comments Sodium Lvl (test code = Sodium Lvl) 139 135-145 [facility] [employer] [id number] 13:33:00 Test Item Value Reference Range Interpretation Comments Potassium Lvl (test code = Potassium 3.7 3.5-5.1 Lvl) [facility] [employer] [id number] 13:33:00 Test Item Value Reference Range Interpretation Comments Chloride Lvl (test code = Chloride Lvl) 108 95-109 [facility] [employer] [id number] 13:33:00 Test Item Value Reference Range Interpretation Comments CO2 (test code = CO2) 21 24-32 [facility] [employer] [id number] 13:33:00 Test Item Value Reference Range Interpretation Comments Calcium Lvl (test code = Calcium Lvl) 8.7 8.5-10.5 [facility] [employer] [id number] 13:33:00 Test Item Value Reference Range Interpretation Comments AGAP (test code = AGAP) 13.7 10.0-20.0 [facility]2021-08-20 13:33:00 Test Item Value Reference Range Interpretation Comments eGFR (test code = eGFR) 15 [facility]2021-08-19 10:33:00 Test Item Value Reference Range Interpretation Comments BUN (test code = BUN) 88 7-22 [place] [id number] 10:33:00 Test Item Value Reference Range Interpretation Comments Creatinine Lvl (test code = Creatinine 4.70 0.50-1.40 Lvl) [facility]2021-08-19 10:33:00 Test Item Value Reference Range Interpretation Comments Sodium Lvl (test code = Sodium Lvl) 138 135-145 [facility]2021-08-19 10:33:00 Test Item Value Reference Range Interpretation Comments Potassium Lvl (test code = Potassium 3.6 3.5-5.1 Lvl) [facility]2021-08-19 10:33:00 Test Item Value Reference Range Interpretation Comments Chloride Lvl (test code = Chloride Lvl) 106 95-109 [facility]2021-08-19 10:33:00 Test Item Value Reference Range Interpretation Comments CO2 (test code = CO2) 21 24-32 [facility]2021-08-19 10:33:00 Test Item Value Reference Range Interpretation Comments AGAP (test code = AGAP) 14.6 10.0-20.0 [facility]2021-08-19 10:33:00 Test Item Value Reference Range Interpretation Comments Calcium Lvl (test code = Calcium Lvl) 8.7 8.5-10.5 [facility]2021-08-19 10:33:00 Test Item Value Reference Range Interpretation Comments eGFR (test code = eGFR) 12 [facility]SfpevqtCIDMQDOVUX2809-36-12 10:33:00 Test Item Value Reference Range Interpretation Comments Plt Morph (test code = Normal (04/10/21 5:33 Plt Morph) AM) [facility] PointeGrbdepeEFHNZADWIZ4528-51-09 10:33:00 Test Item Value Reference Range Interpretation Comments Segs (test code = Segs) 88.8 45.0-75.0 [facility] PointePgfzbmbQLQGALNRZA6147-07-65 10:33:00 Test Item Value Reference Range Interpretation Comments Lymphocytes (test code = Lymphocytes) 6.3 20.0-40.0 [facility] PointeXclzxrdVKWTAXLILR4653-04-98 10:33:00 Test Item Value Reference Range Interpretation Comments Monocytes (test code = Monocytes) 4.6 2.0-12.0 [facility] PointeCtqetpkKOETNQEZGB1844-58-84 10:33:00 Test Item Value Reference Range Interpretation Comments Eosinophils (test code = 0.1 See_Comment [A utomated message] The Eosinophils) system which ge nerated this result tra nsmitted reference range : <=4.0. The reference r germania was not used to int erpret this result as normal/abnormal . [facility] PointePryqnjbGOGHJJQAGU4924-44-03 10:33:00 Test Item Value Reference Range Interpretation Comments Basophils (test code = 0.2 See_Comment [Aut omated message] The Basophils) system which ge nerated this result tra nsmitted reference range : <=1.0. The reference r germania was not used to int erpret this result as normal/abnormal . [facility] PointeKizkphdWWZTZIFJMA0708-44-87 10:33:00 Test Item Value Reference Range Interpretation Comments Neutrophils # (test code = Neutrophils 12.5 1.5-8.1 #) [facility] PointeOboqljzSKAMZEQRUU7799-41-98 10:33:00 Test Item Value Reference Range Interpretation Comments Lymphocytes # (test code = Lymphocytes 0.9 1.0-5.5 #) [facility] PointePlzqdthLUSWDZRSOQ8198-96-42 10:33:00 Test Item Value Reference Range Interpretation Comments Monocytes # (test code 0.6 See_Comment [Aut omated message] The = Monocytes #) system which generated this result tra nsmitted reference range : <=0.8. The reference r germania was not used to int erpret this result as normal/abnormal . [facility]inteLbiugkeLGDDDJBRDZ3683-91-35 10:33:00 Test Item Value Reference Range Interpretation Comments Microcyte (test code = 3+ *NA*(04/10/21 5:33 Microcyte) AM) [facility]inteRxshswlSDCQXZVMLZ0417-53-22 10:33:00 Test Item Value Reference Range Interpretation Comments Polychrom (test code = Moderate *ABN*(04/10/21 Polychrom) 5:33 AM) [facility] PointeQatuinpFXKZDWHZDE7296-76-04 10:33:00 Test Item Value Reference Range Interpretation Comments Tear Cell (test code Moderate *ABN*(04/10/21 = Tear Cell) 5:33 AM) [facility] PointeJqhprdrMVNZFZMRAE8545-87-25 10:33:00 Test Item Value Reference Range Interpretation Comments Schistocyte (test code = 1-3 per HPF Schistocyte) (04/10/21 5:33 AM) [facility] PointeAdqaoreVXUCTAAHZA7405-13-58 10:33:00 Test Item Value Reference Range Interpretation Comments WBC X 10x3 (test code = WBC X 10x3) 14.0 3.7-10.4 [facility] PointeFvofioeKRCXBIQETJ6469-21-42 10:33:00 Test Item Value Reference Range Interpretation Comments RBC X 10x6 (test code = RBC X 10x6) 3.63 4.20-5.40 [facility] PointeTubtonjCNRRMOTOBF5005-19-01 10:33:00 Test Item Value Reference Range Interpretation Comments Hgb (test code = Hgb) 7.7 12.0-16.0 [facility] PointeFvzgoloNBQGVATDSH0594-35-58 10:33:00 Test Item Value Reference Range Interpretation Comments Hct (test code = Hct) 23.8 36.0-48.0 [facility] PointeKmwsqopCGJEHEWYOM6276-29-99 10:33:00 Test Item Value Reference Range Interpretation Comments MCV (test code = MCV) 65.6 80.0-98.0 [facility] PointeNaequrdLNDPDTASVO3089-90-81 10:33:00 Test Item Value Reference Range Interpretation Comments MCH (test code = MCH) 21.3 pg 27.0-31.0 [facility] PointeQkpaqqtSXHEGHSIKV2312-40-61 10:33:00 Test Item Value Reference Range Interpretation Comments MCHC (test code = MCHC) 32.5 32.0-36.0 [facility] PointeBvsrsjrBDEHGTGHNE8301-06-03 10:33:00 Test Item Value Reference Range Interpretation Comments RDW (test code = RDW) 18.6 11.5-14.5 [facility] PointeComammeTORSZYSVZR0975-20-33 10:33:00 Test Item Value Reference Range Interpretation Comments Platelet (test code = Platelet) 165 133-450 [facility] PointeUchvqkwXHKWKNVQJB5859-75-10 10:33:00 Test Item Value Reference Range Interpretation Comments MPV (test code = MPV) 9.0 7.4-10.4 [facility]2021-08-19 10:33:00 Test Item Value Reference Range Interpretation Comments Magnesium Lvl (test code = Magnesium 2.7 1.8-2.4 Lvl) [facility]2021-08-19 10:33:00 Test Item Value Reference Range Interpretation Comments Phosphorus (test code = Phosphorus) 5.8 2.5-4.5 [place] 650821-08-19 10:33:00 Test Item Value Reference Range Interpretation Comments Glucose Lvl (test code = Glucose Lvl) 186 70-99 [facility]2021-08-18 10:49:00 Test Item Value Reference Range Interpretation Comments Phosphorus (test code = Phosphorus) 7.2 2.5-4.5 [facility]2021-08-18 10:49:00 Test Item Value Reference Range Interpretation Comments Glucose Lvl (test code = Glucose Lvl) 68 70-99 [facility]2021-08-18 10:49:00 Test Item Value Reference Range Interpretation Comments BUN (test code = BUN) 82 7-22 [facility]2021-08-18 10:49:00 Test Item Value Reference Range Interpretation Comments Creatinine Lvl (test code = Creatinine 5.00 0.50-1.40 Lvl) [facility]2021-08-18 10:49:00 Test Item Value Reference Range Interpretation Comments Sodium Lvl (test code = Sodium Lvl) 138 135-145 [facility]2021-08-18 10:49:00 Test Item Value Reference Range Interpretation Comments Potassium Lvl (test code = Potassium 3.1 3.5-5.1 Lvl) [facility]2021-08-18 10:49:00 Test Item Value Reference Range Interpretation Comments Chloride Lvl (test code = Chloride Lvl) 105 95-109 [facility]2021-08-18 10:49:00 Test Item Value Reference Range Interpretation Comments CO2 (test code = CO2) 20 24-32 [facility]2021-08-18 10:49:00 Test Item Value Reference Range Interpretation Comments Calcium Lvl (test code = Calcium Lvl) 8.2 8.5-10.5 [facility]2021-08-18 10:49:00 Test Item Value Reference Range Interpretation Comments AGAP (test code = AGAP) 16.1 10.0-20.0 [facility]2021-08-18 10:49:00 Test Item Value Reference Range Interpretation Comments eGFR (test code = eGFR) 11 [facility]2021-08-18 10:49:00 Test Item Value Reference Range Interpretation Comments Magnesium Lvl (test code = Magnesium 2.4 1.8-2.4 Lvl) [facility] PointeDazlpwcMHLACUMHON4184-30-93 10:49:00 Test Item Value Reference Range Interpretation Comments WBC X 10x3 (test code = WBC X 10x3) 10.7 3.7-10.4 [facility] PointeXxjbooeGFPDSOPEEV2986-90-70 10:49:00 Test Item Value Reference Range Interpretation Comments RBC X 10x6 (test code = RBC X 10x6) 3.65 4.20-5.40 [facility] PointeQhiabslXENJGVZCUO1494-82-57 10:49:00 Test Item Value Reference Range Interpretation Comments Hgb (test code = Hgb) 7.8 12.0-16.0 [facility] PointeViashvnSTGISRSMPG6814-11-66 10:49:00 Test Item Value Reference Range Interpretation Comments Hct (test code = Hct) 24.8 36.0-48.0 [facility] PointeGpwwvlaDJQTZGHYXO0831-39-91 10:49:00 Test Item Value Reference Range Interpretation Comments MCV (test code = MCV) 68.0 80.0-98.0 [facility] PointeKspomwhJUMVVVPBUP9076-62-31 10:49:00 Test Item Value Reference Range Interpretation Comments MCH (test code = MCH) 21.4 pg 27.0-31.0 [facility] PointeHhtlfnzOZKBHBGBAS2429-30-70 10:49:00 Test Item Value Reference Range Interpretation Comments MCHC (test code = MCHC) 31.5 32.0-36.0 [facility] PointeWncsqapHIWPJBSVNV8856-83-78 10:49:00 Test Item Value Reference Range Interpretation Comments RDW (test code = RDW) 18.6 11.5-14.5 [facility] PointeIuqthclVYLJNRXCNQ9157-34-84 10:49:00 Test Item Value Reference Range Interpretation Comments Platelet (test code = Platelet) 122 133-450 [facility] PointeGeavmpsOWYEMZWHDL6200-37-66 10:49:00 Test Item Value Reference Range Interpretation Comments MPV (test code = MPV) 8.4 7.4-10.4 [facility] PointeTntotehXZGCNWZHUN1670-83-98 10:49:00 Test Item Value Reference Range Interpretation Comments Segs (test code = Segs) 73.7 45.0-75.0 [place] 573621-08-18 10:49:00 Test Item Value Reference Range Interpretation Comments Lymphocytes (test code = Lymphocytes) 16.3 20.0-40.0 [place] 573621-08-18 10:49:00 Test Item Value Reference Range Interpretation Comments Monocytes (test code = Monocytes) 6.7 2.0-12.0 [place] 573621-08-18 10:49:00 Test Item Value Reference Range Interpretation Comments Eosinophils (test code = 3.0 See_Comment [A utomated message] The Eosinophils) system which ge nerated this result tra nsmitted reference range : <=4.0. The reference r germania was not used to int erpret this result as normal/abnormal . [place] 573621-08-18 10:49:00 Test Item Value Reference Range Interpretation Comments Basophils (test code = 0.3 See_Comment [Aut omated message] The Basophils) system which ge nerated this result tra nsmitted reference range : <=1.0. The reference r germania was not used to int erpret this result as normal/abnormal . [facility] PointeRjmbgraBAYNQAICWA3112-78-74 10:49:00 Test Item Value Reference Range Interpretation Comments Neutrophils # (test code = Neutrophils 7.9 1.5-8.1 #) [facility] PointeUfowiouUPVETPYKQO6031-55-94 10:49:00 Test Item Value Reference Range Interpretation Comments Lymphocytes # (test code = Lymphocytes 1.7 1.0-5.5 #) [facility] PointeTvgvpinXYSPSLULQN3922-08-26 10:49:00 Test Item Value Reference Range Interpretation Comments Monocytes # (test code 0.7 See_Comment [Aut omated message] The = Monocytes #) system which generated this result tra nsmitted reference range : <=0.8. The reference r germania was not used to int erpret this result as normal/abnormal . [place] 573621-08-18 10:49:00 Test Item Value Reference Range Interpretation Comments Eosinophils # (test code 0.3 See_Comment [A utomated message] The = Eosinophils #) system whic h generated this result tra nsmitted reference range : <=0.5. The reference r germania was not used to int erpret this result as normal/abnormal . [place] [address]-08-18 10:49:00 Test Item Value Reference Range Interpretation Comments Microcyte (test code = 3+ *NA*(04/09/21 5:49 Microcyte) AM) [place] [address]-08-18 10:49:00 Test Item Value Reference Range Interpretation Comments Hypochrom (test code = 1+ (04/09/21 5:49 AM) Hypochrom) [place] [address]-08-17 11:01:00 Test Item Value Reference Range Interpretation Comments Phosphorus (test code = Phosphorus) 7.2 2.5-4.5 [place] [address]-08-17 11:01:00 Test Item Value Reference Range Interpretation Comments Magnesium Lvl (test code = Magnesium 2.5 1.8-2.4 Lvl) [place] [address]-08-17 11:01:00 Test Item Value Reference Range Interpretation Comments Total Protein (test code = Total 5.4 6.4-8.4 Protein) [place] [address]-08-17 11:01:00 Test Item Value Reference Range Interpretation Comments Albumin Lvl (test code = Albumin Lvl) 1.8 3.5-5.0 [place] [address]-08-17 11:01:00 Test Item Value Reference Range Interpretation Comments ALT (test code = ALT) 15 See_Comment [Auto mated message] The system which ge nerated this result transmit diamond reference range : <=65. The reference range was not used to interpr et this result as kamla l/abnormal. [place] 650821-08-17 11:01:00 Test Item Value Reference Range Interpretation Comments AST (test code = AST) 15 See_Comment [Auto mated message] The system which ge nerated this result transmit diamond reference range : <=37. The reference range was not used to interpr et this result as kamla l/abnormal. [place] [address]-08-17 11:01:00 Test Item Value Reference Range Interpretation Comments Alk Phos (test code = Alk Phos) 75 39-136 [place] 650821-08-17 11:01:00 Test Item Value Reference Range Interpretation Comments Bili Total (test code = Bili Total) 0.3 0.2-1.3 [place] 650821-08-17 11:01:00 Test Item Value Reference Range Interpretation Comments B/C Ratio (test code = B/C Ratio) 13 1 6-25 [place] 650821-08-17 11:01:00 Test Item Value Reference Range Interpretation Comments Globulin (test code = Globulin) 3.6 2.7-4.2 [place] 650821-08-17 11:01:00 Test Item Value Reference Range Interpretation Comments A/G Ratio (test code = A/G Ratio) 0.5 1 0.7-1.6 [place] 573621-08-17 11:01:00 Test Item Value Reference Range Interpretation Comments Plt Morph (test code = Normal (04/08/21 6:01 Plt Morph) AM) [place] 573621-08-17 11:01:00 Test Item Value Reference Range Interpretation Comments Segs (test code = Segs) 69.2 45.0-75.0 [place] 573621-08-17 11:01:00 Test Item Value Reference Range Interpretation Comments Lymphocytes (test code = Lymphocytes) 20.3 20.0-40.0 [place] 573621-08-17 11:01:00 Test Item Value Reference Range Interpretation Comments Monocytes (test code = Monocytes) 7.9 2.0-12.0 [place] 573621-08-17 11:01:00 Test Item Value Reference Range Interpretation Comments Eosinophils (test code = 2.2 See_Comment [A utomated message] The Eosinophils) system which ge nerated this result tra nsmitted reference range : <=4.0. The reference r germania was not used to int erpret this result as normal/abnormal . [place] 573621-08-17 11:01:00 Test Item Value Reference Range Interpretation Comments Basophils (test code = 0.4 See_Comment [Aut omated message] The Basophils) system which ge nerated this result tra nsmitted reference range : <=1.0. The reference r germania was not used to int erpret this result as normal/abnormal . [place] 573621-08-17 11:01:00 Test Item Value Reference Range Interpretation Comments Neutrophils # (test code = Neutrophils 5.8 1.5-8.1 #) [facility] PointeTwssnwfPXYNQAAIXU8584-53-80 11:01:00 Test Item Value Reference Range Interpretation Comments Lymphocytes # (test code = Lymphocytes 1.7 1.0-5.5 #) [facility] PointeQqqvrsjFWRXCRHFDL6593-46-71 11:01:00 Test Item Value Reference Range Interpretation Comments Monocytes # (test code 0.7 See_Comment [Aut omated message] The = Monocytes #) system which generated this result tra nsmitted reference range : <=0.8. The reference r germania was not used to int erpret this result as normal/abnormal . [facility] PointeJebxkjqNXNTXAGPHG0430-91-62 11:01:00 Test Item Value Reference Range Interpretation Comments Eosinophils # (test code 0.2 See_Comment [A utomated message] The = Eosinophils #) system whic h generated this result tra nsmitted reference range : <=0.5. The reference r germania was not used to int erpret this result as normal/abnormal . [facility] PointeSnbjnmaGKMCTVQWAT7687-12-53 11:01:00 Test Item Value Reference Range Interpretation Comments Microcyte (test code = 3+ *NA*(04/08/21 6:01 Microcyte) AM) [facility] PointeGwlbcxzHVABIJKFCY1125-31-22 11:01:00 Test Item Value Reference Range Interpretation Comments Hypochrom (test code = 1+ (04/08/21 6:01 AM) Hypochrom) [place] 573621-08-17 11:01:00 Test Item Value Reference Range Interpretation Comments Polychrom (test code = Moderate *ABN*(04/08/21 Polychrom) 6:01 AM) [facility] PointeYahswfaRWRIWDRFVH4140-24-96 11:01:00 Test Item Value Reference Range Interpretation Comments Schistocyte (test code = 1-3 per HPF Schistocyte) (04/08/21 6:01 AM) [place] 573621-08-17 11:01:00 Test Item Value Reference Range Interpretation Comments Elliptocyte (test code = Slight *ABN*(04/08/21 Elliptocyte) 6:01 AM) [facility] PointeLalnlxyLFBUACJBID0558-53-14 11:01:00 Test Item Value Reference Range Interpretation Comments Toxic Gran (test code Moderate *ABN*(04/08/21 = Toxic Gran) 6:01 AM) [facility] PointeZhtrqicOLNPEOWMOL8932-41-22 11:01:00 Test Item Value Reference Range Interpretation Comments WBC X 10x3 (test code = WBC X 10x3) 8.3 3.7-10.4 [facility] PointeApajgmqYZIRMNZQSD9880-17-70 11:01:00 Test Item Value Reference Range Interpretation Comments RBC X 10x6 (test code = RBC X 10x6) 3.94 4.20-5.40 [facility] PointeSrsffmbKHYKIWMTUQ4372-89-31 11:01:00 Test Item Value Reference Range Interpretation Comments Hgb (test code = Hgb) 8.6 12.0-16.0 [facility] PointeKygxmzlYTXAZBVNXS9497-56-92 11:01:00 Test Item Value Reference Range Interpretation Comments Hct (test code = Hct) 26.9 36.0-48.0 [facility] PointeMrpgfejODUYMOAAOZ0262-45-45 11:01:00 Test Item Value Reference Range Interpretation Comments MCV (test code = MCV) 68.4 80.0-98.0 [facility] PointeFmshmirBUPJCREVQN9389-97-67 11:01:00 Test Item Value Reference Range Interpretation Comments MCH (test code = MCH) 21.8 pg 27.0-31.0 [facility] PointePodmgrjYDNOIKLRAX2809-38-33 11:01:00 Test Item Value Reference Range Interpretation Comments MCHC (test code = MCHC) 31.9 32.0-36.0 [facility] PointeJlmsxqyCMMVIQFTGC2650-78-93 11:01:00 Test Item Value Reference Range Interpretation Comments RDW (test code = RDW) 18.7 11.5-14.5 [facility] PointeUpjrhplMVMWHPNJBE0764-56-52 11:01:00 Test Item Value Reference Range Interpretation Comments Platelet (test code = Platelet) 110 133-450 [facility] PointeQpkvcooHPHXBRJSKD1015-14-81 11:01:00 Test Item Value Reference Range Interpretation Comments MPV (test code = MPV) 8.4 7.4-10.[address] [facility]UywrhlnVOWNMBTUPX6117-79-29 15:23:00 Test Item Value Reference Range Interpretation Comments C3 Complement (test code = C3 57 Complement) [facility]VftaqbnWPWQJLCUVL2246-35-66 15:23:00 Test Item Value Reference Range Interpretation Comments C4 Complement (test code = C4 12 Complement) [place] 650821-08-16 09:46:00 Test Item Value Reference Range Interpretation Comments B/C Ratio (test code = B/C Ratio) 12 1 6-25 [place] [address]-08-16 09:46:00 Test Item Value Reference Range Interpretation Comments Total Protein (test code = Total 5.3 6.4-8.4 Protein) [place] [address]-08-16 09:46:00 Test Item Value Reference Range Interpretation Comments Albumin Lvl (test code = Albumin Lvl) 1.6 3.5-5.0 [place] [address]-08-16 09:46:00 Test Item Value Reference Range Interpretation Comments Globulin (test code = Globulin) 3.7 2.7-4.2 [place] 650821-08-16 09:46:00 Test Item Value Reference Range Interpretation Comments A/G Ratio (test code = A/G Ratio) 0.4 1 0.7-1.6 [place] [address]-08-16 09:46:00 Test Item Value Reference Range Interpretation Comments ALT (test code = ALT) 13 See_Comment [Auto mated message] The system which ge nerated this result transmit diamond reference range : <=65. The reference range was not used to interpr et this result as kamla l/abnormal. [place] [address]-08-16 09:46:00 Test Item Value Reference Range Interpretation Comments AST (test code = AST) 8 See_Comment [Auto mated message] The system which ge nerated this result transmit diamond reference range : <=37. The reference range was not used to interpr et this result as kamla l/abnormal. [facility]2021-08-16 09:46:00 Test Item Value Reference Range Interpretation Comments Alk Phos (test code = Alk Phos) 77 39-136 [place] [address]-08-16 09:46:00 Test Item Value Reference Range Interpretation Comments Bili Total (test code = Bili Total) 0.3 0.2-1.3 [place] 573621-08-16 09:46:00 Test Item Value Reference Range Interpretation Comments Eosinophils # (test code 0.1 See_Comment [A utomated message] The = Eosinophils #) system whic h generated this result tra nsmitted reference range : <=0.5. The reference r germania was not used to int erpret this result as normal/abnormal . [place] 573621-08-16 09:46:00 Test Item Value Reference Range Interpretation Comments Basophils # (test code 0.1 See_Comment [Aut omated message] The = Basophils #) system which generated this result tra nsmitted reference range : <=0.2. The reference r gemrania was not used to int erpret this result as normal/abnormal . [place] 785511-08-16 09:46:00 Test Item Value Reference Range Interpretation Comments C3 Complement (test code = C3 57 Complement) [place] 785511-08-16 09:46:00 Test Item Value Reference Range Interpretation Comments C4 Complement (test code = C4 12 Complement) [place] 634371-08-15 14:25:00 Test Item Value Reference Range Interpretation Comments Ca Ion WB (test code = Ca Ion WB) 0.91 1.05-1.25 [place] 634371-08-15 14:25:00 Test Item Value Reference Range Interpretation Comments Ca Norm WB (test code = Ca Norm WB) 0.88 1.05-1.25 [place] 573621-08-15 09:01:00 Test Item Value Reference Range Interpretation Comments Plt Morph (test code = Normal (04/06/21 4:01 Plt Morph) AM) [place] 573621-08-15 09:01:00 Test Item Value Reference Range Interpretation Comments Polychrom (test code = Moderate *ABN*(04/06/21 Polychrom) 4:01 AM) [place] 573621-08-15 09:01:00 Test Item Value Reference Range Interpretation Comments Schistocyte (test code = 1-3 per HPF Schistocyte) (04/06/21 4:01 AM) [place] 573621-08-15 09:01:00 Test Item Value Reference Range Interpretation Comments Elliptocyte (test code = Slight *ABN*(04/06/21 Elliptocyte) 4:01 AM) [place] 573621-08-15 09:01:00 Test Item Value Reference Range Interpretation Comments Toxic Gran (test code Moderate *ABN*(04/06/21 = Toxic Gran) 4:01 AM) [facility]bdmltmCVHLKSJAFN7772[facility] 09:01:00 Test Item Value Reference Range Interpretation Comments Dohle Bodies (test Moderate *ABN*(04/06/21 code = Dohle Bodies) 4:01 AM) [facility] [id number] 09:01:00 Test Item Value Reference Range Interpretation Comments U Creatinine (test code = U 153.00 Creatinine) [facility]2021-08-15 09:01:00 Test Item Value Reference Range Interpretation Comments U Protein (test code = U Protein) 293.8 [facility]2021-08-15 09:01:00 Test Item Value Reference Range Interpretation Comments U Prot/Creat (test code = U 1.92 1 Prot/Creat) [facility] PointeDyrflymRCBJDDRENW0348-98-76 10:31:00 Test Item Value Reference Range Interpretation Comments Basophils # (test code 0.1 See_Comment [Aut omated message] The = Basophils #) system which generated this result tra nsmitted reference range : <=0.2. The reference r germania was not used to int erpret this result as normal/abnormal . [facility] PointeOkhqodoSYMHQBONSG9469-36-99 10:31:00 Test Item Value Reference Range Interpretation Comments Elliptocyte (test code = Slight *ABN*(04/05/21 Elliptocyte) 5:31 AM) [facility]CohmqebULKDEZYIQW6633-73-66 10:31:00 Test Item Value Reference Range Interpretation Comments Toxic Gran (test code Moderate *ABN*(04/05/21 = Toxic Gran) 5:31 AM) [facility] HospitalGram Stain Rgdawn3041-82-69 10:31:00 Test Item Value Reference Range Interpretation Comments Gram Stain Report Less Than 25 Squamous (test code = Gram Epithelial Cells/Lpf Stain Report) Moderate WBC's No Organisms Seen Good Quality Specimen [facility] HospitalCulture: Respiratory w/Gram Lfkls8091-17-38 10:31:00 Test Item Value Reference Range Interpretation Comments Culture: Respiratory Normal Respiratory w/Gram Stain (test code Stacy Isolated = Culture: Respiratory w/Gram Stain) [facility] XZKVS9284-96-44 09:03:00 Test Item Value Reference Range Interpretation Comments Total Protein (test code = Total 5.5 6.4-8.4 Protein) [facility] [id number] 09:03:00 Test Item Value Reference Range Interpretation Comments Albumin Lvl (test code = Albumin Lvl) 1.8 3.5-5.0 [facility] [id number] 09:03:00 Test Item Value Reference Range Interpretation Comments ALT (test code = ALT) 14 See_Comment [Auto mated message] The system which ge nerated this result transmit diamond reference range : <=65. The reference range was not used to interpr et this result as kamla l/abnormal. [facility] [id number] 09:03:00 Test Item Value Reference Range Interpretation Comments AST (test code = AST) 11 See_Comment [Auto mated message] The system which ge nerated this result transmit diamond reference range : <=37. The reference range was not used to interpr et this result as kamla l/abnormal. [facility] [employer] [id number] 09:03:00 Test Item Value Reference Range Interpretation Comments Alk Phos (test code = Alk Phos) 105 39-136 [facility] [employer] [id number] 09:03:00 Test Item Value Reference Range Interpretation Comments Bili Total (test code = Bili Total) 0.2 0.2-1.3 [facility] [id number] 09:03:00 Test Item Value Reference Range Interpretation Comments B/C Ratio (test code = B/C Ratio) 9 1 6-25 [facility]ly [facility] HospitalInnovashop.tv [id number] 09:03:00 Test Item Value Reference Range Interpretation Comments Globulin (test code = Globulin) 3.7 2.7-4.2 [facility] [employer] [id number] 09:03:00 Test Item Value Reference Range Interpretation Comments A/G Ratio (test code = A/G Ratio) 0.5 1 0.7-1.6 [facility]CgqntldFEIOMEYXMRJDX6118-11-70 06:50:00 Test Item Value Reference Range Interpretation Comments S Preg (test code = S Negative *NA*(04/05/21 Preg) 1:50 AM) [facility] HospitalVsnpdjxASXJEYBOML2686-68-75 00:21:00 Test Item Value Reference Range Interpretation Comments Vancomycin AUC (test code = Vancomycin 37.2 AUC) [facility] HospitalDroaeanXJJDFCHQGK1611-18-55 21:07:00 Test Item Value Reference Range Interpretation Comments Hep Bs Ag (test code Negative *NA*(04/04/21 = Hep Bs Ag) 4:07 PM) [facility] [id number] 21:07:00 Test Item Value Reference Range Interpretation Comments Vancomycin AUC (test code = Vancomycin 39.8 AUC) [facility] MgulqkfBACWGFLJKU7603-69-21 16:22:00 Test Item Value Reference Range Interpretation Comments Coronavirus (COVID-19) Not Detected (04/04/21 ZEUS (test code = 11:22 AM) Coronavirus (COVID-19) ZEUS) [facility] [employer] [id number] 10:26:00 Test Item Value Reference Range Interpretation Comments ABO/Rh (test code = ABO/Rh) O POS [facility] [employer] [id number] 10:26:00 Test Item Value Reference Range Interpretation Comments Antibody Scrn (test Negative (04/04/21 5:26 code = Antibody Scrn) AM) [facility] [employer] [id number] 10:19:00 Test Item Value Reference Range Interpretation Comments RBC product (test code Product available = RBC product) 5(04/04/21 5:19 AM) [employer]2021-08-13 08:56:00 Test Item Value Reference Range Interpretation Comments Lactic Acid Lvl (test code = Lactic 1.1 0.5-2.2 Acid Lvl) [facility] [employer]2021-08-13 08:56:00 Test Item Value Reference Range Interpretation Comments Glucose Lvl (test code = Glucose Lvl) 120 70-99 [facility] [employer]2021-08-13 08:56:00 Test Item Value Reference Range Interpretation Comments BUN (test code = BUN) 40 7-22 [employer]2021-08-13 08:56:00 Test Item Value Reference Range Interpretation Comments Creatinine Lvl (test code = Creatinine 4.33 0.50-1.40 Lvl) [employer]2021-08-13 08:56:00 Test Item Value Reference Range Interpretation Comments Sodium Lvl (test code = Sodium Lvl) 138 135-145 [employer]2021-08-13 08:56:00 Test Item Value Reference Range Interpretation Comments Potassium Lvl (test code = Potassium 3.3 3.5-5.1 Lvl) [place] [address]-08-13 08:56:00 Test Item Value Reference Range Interpretation Comments Chloride Lvl (test code = Chloride Lvl) 110 95-109 [place] 650821-08-13 08:56:00 Test Item Value Reference Range Interpretation Comments CO2 (test code = CO2) 15 24-32 [place] [address]-08-13 08:56:00 Test Item Value Reference Range Interpretation Comments AGAP (test code = AGAP) 16.3 10.0-20.0 [place] [address]-08-13 08:56:00 Test Item Value Reference Range Interpretation Comments Calcium Lvl (test code = Calcium Lvl) 7.0 8.5-10.5 [place] [address]-08-13 08:56:00 Test Item Value Reference Range Interpretation Comments B/C Ratio (test code = B/C Ratio) 9 1 6-25 [place] [address]-08-13 08:56:00 Test Item Value Reference Range Interpretation Comments Total Protein (test code = Total 4.9 6.4-8.4 Protein) [place] 650821-08-13 08:56:00 Test Item Value Reference Range Interpretation Comments Albumin Lvl (test code = Albumin Lvl) 1.6 3.5-5.0 [place] [address]-08-13 08:56:00 Test Item Value Reference Range Interpretation Comments Globulin (test code = Globulin) 3.3 2.7-4.2 [place] [address]-08-13 08:56:00 Test Item Value Reference Range Interpretation Comments A/G Ratio (test code = A/G Ratio) 0.5 1 0.7-1.6 [address]08-13 08:56:00 Test Item Value Reference Range Interpretation Comments ALT (test code = ALT) 15 See_Comment [Auto mated message] The system which ge nerated this result transmit diamond reference range : <=65. The reference range was not used to interpr et this result as kamla l/abnormal. [facility] HospitalWiral Internet Group [id number] 08:56:00 Test Item Value Reference Range Interpretation Comments AST (test code = AST) 17 See_Comment [Auto mated message] The system which ge nerated this result transmit diamond reference range : <=37. The reference range was not used to interpr et this result as kamla l/abnormal. [place] 650821-08-13 08:56:00 Test Item Value Reference Range Interpretation Comments Alk Phos (test code = Alk Phos) 118 39-136 [place] [address]-08-13 08:56:00 Test Item Value Reference Range Interpretation Comments Bili Total (test code = Bili Total) 0.3 0.2-1.3 [place] 650821-08-13 08:56:00 Test Item Value Reference Range Interpretation Comments eGFR (test code = eGFR) 13 [place] 573621-08-13 08:56:00 Test Item Value Reference Range Interpretation Comments Neutrophils # (test code = Neutrophils 21.9 1.5-8.1 #) [place] [address]-08-13 08:56:00 Test Item Value Reference Range Interpretation Comments Lymphocytes # (test code = Lymphocytes 0.7 1.0-5.5 #) [place] [address]-08-13 08:56:00 Test Item Value Reference Range Interpretation Comments Monocytes # (test code 0.5 See_Comment [Aut omated message] The = Monocytes #) system which generated this result tra nsmitted reference range : <=0.8. The reference r germania was not used to int erpret this result as normal/abnormal . [place] 573621-08-13 08:56:00 Test Item Value Reference Range Interpretation Comments Segs (test code = Segs) 81.0 45.0-75.0 [place] [address]-08-13 08:56:00 Test Item Value Reference Range Interpretation Comments Bands (test code = 14.0 See_Comment [Automat ed message] The Bands) system which ge nerated this result transmit diamond reference range : <=11.0. The reference r germania was not used to interpr et this result as kamla l/abnormal. [place] [address]-08-13 08:56:00 Test Item Value Reference Range Interpretation Comments Lymphocytes (test code = Lymphocytes) 3.0 20.0-40.0 [place] [address]-08-13 08:56:00 Test Item Value Reference Range Interpretation Comments Monocytes (test code = Monocytes) 2.0 2.0-12.0 [place] 573621-08-13 08:56:00 Test Item Value Reference Range Interpretation Comments Atypical Lymphs (test code = Atypical 0.0 Lymphs) [facility]CefzfyjBLXZGPEIXA9312-14-06 08:56:00 Test Item Value Reference Range Interpretation Comments Plt Morph (test code = Normal (04/04/21 3:56 Plt Morph) AM) [place] 573621-08-13 08:56:00 Test Item Value Reference Range Interpretation Comments Anisocyte (test code = 1+ *ABN*(04/04/21 Anisocyte) 3:56 AM) [place] [address]-08-13 08:56:00 Test Item Value Reference Range Interpretation Comments Microcyte (test code = 3+ *ABN*(04/04/21 Microcyte) 3:56 AM) [place] 573621-08-13 08:56:00 Test Item Value Reference Range Interpretation Comments Hypochrom (test code = 1+ (04/04/21 3:56 AM) Hypochrom) [place] 573621-08-13 08:56:00 Test Item Value Reference Range Interpretation Comments WBC (test code = WBC) 23.1 3.7-10.4 [place] 573621-08-13 08:56:00 Test Item Value Reference Range Interpretation Comments RBC (test code = RBC) 3.34 4.20-5.40 [place] 573621-08-13 08:56:00 Test Item Value Reference Range Interpretation Comments Hgb (test code = Hgb) 6.8 12.0-16.0 [place] 573621-08-13 08:56:00 Test Item Value Reference Range Interpretation Comments Hct (test code = Hct) 22.6 36.0-48.0 [place] [address]-08-13 08:56:00 Test Item Value Reference Range Interpretation Comments MCV (test code = MCV) 67.6 80.0-98.0 [place] [address]-08-13 08:56:00 Test Item Value Reference Range Interpretation Comments MCH (test code = MCH) 20.5 pg 27.0-31.0 [place] 573621-08-13 08:56:00 Test Item Value Reference Range Interpretation Comments MCHC (test code = MCHC) 30.3 32.0-36.0 [place] 573621-08-13 08:56:00 Test Item Value Reference Range Interpretation Comments RDW (test code = RDW) 18.9 11.5-14.5 [place] 573621-08-13 08:56:00 Test Item Value Reference Range Interpretation Comments Platelet (test code = Platelet) 172 133-450 [place] 573621-08-13 08:56:00 Test Item Value Reference Range Interpretation Comments MPV (test code = MPV) 8.3 7.4-10.4 [place] 650821-08-13 07:06:00 Test Item Value Reference Range Interpretation Comments Glucose Lvl (test code = Glucose Lvl) 111 70-99 [place] 650821-08-13 07:06:00 Test Item Value Reference Range Interpretation Comments BUN (test code = BUN) 40 7-22 [place] 650821-08-13 07:06:00 Test Item Value Reference Range Interpretation Comments Creatinine Lvl (test code = Creatinine 4.25 0.50-1.40 Lvl) [facility]2021-08-13 07:06:00 Test Item Value Reference Range Interpretation Comments Sodium Lvl (test code = Sodium Lvl) 137 135-145 [facility]2021-08-13 07:06:00 Test Item Value Reference Range Interpretation Comments Potassium Lvl (test code = Potassium 3.5 3.5-5.1 Lvl) [facility]2021-08-13 07:06:00 Test Item Value Reference Range Interpretation Comments Chloride Lvl (test code = Chloride Lvl) 109 95-109 [place] 650821-08-13 07:06:00 Test Item Value Reference Range Interpretation Comments CO2 (test code = CO2) 16 24-32 [place] 650821-08-13 07:06:00 Test Item Value Reference Range Interpretation Comments AGAP (test code = AGAP) 15.5 10.0-20.0 [place] 650821-08-13 07:06:00 Test Item Value Reference Range Interpretation Comments Calcium Lvl (test code = Calcium Lvl) 6.9 8.5-10.5 [place] 650821-08-13 07:06:00 Test Item Value Reference Range Interpretation Comments B/C Ratio (test code = B/C Ratio) 9 1 6-25 [place] 650821-08-13 07:06:00 Test Item Value Reference Range Interpretation Comments Total Protein (test code = Total 5.0 6.4-8.4 Protein) [place] 650821-08-13 07:06:00 Test Item Value Reference Range Interpretation Comments Albumin Lvl (test code = Albumin Lvl) 1.6 3.5-5.0 [place] 650821-08-13 07:06:00 Test Item Value Reference Range Interpretation Comments Globulin (test code = Globulin) 3.4 2.7-4.2 [place] 650821-08-13 07:06:00 Test Item Value Reference Range Interpretation Comments A/G Ratio (test code = A/G Ratio) 0.5 1 0.7-1.6 [place] 650821-08-13 07:06:00 Test Item Value Reference Range Interpretation Comments ALT (test code = ALT) 14 See_Comment [Auto mated message] The system which ge nerated this result transmit diamond reference range : <=65. The reference range was not used to interpr et this result as kamla l/abnormal. [place] 650821-08-13 07:06:00 Test Item Value Reference Range Interpretation Comments AST (test code = AST) 22 See_Comment [Auto mated message] The system which ge nerated this result transmit diamond reference range : <=37. The reference range was not used to interpr et this result as kamla l/abnormal. [place] 650821-08-13 07:06:00 Test Item Value Reference Range Interpretation Comments Alk Phos (test code = Alk Phos) 116 39-136 [place] 650821-08-13 07:06:00 Test Item Value Reference Range Interpretation Comments Bili Total (test code = Bili Total) 0.2 0.2-1.3 [place] 650821-08-13 07:06:00 Test Item Value Reference Range Interpretation Comments eGFR (test code = eGFR) 13 [place] 650821-08-13 07:06:00 Test Item Value Reference Range Interpretation Comments Phosphorus (test code = Phosphorus) 4.6 2.5-4.5 [facility] HospitalInnovashop.tv [id number] 07:06:00 Test Item Value Reference Range Interpretation Comments Magnesium Lvl (test code = Magnesium 1.5 1.8-2.4 Lvl) [facility] HospitalannCHEM [id number] 07:06:00 Test Item Value Reference Range Interpretation Comments Lipase Lvl (test code = Lipase Lvl) 44 73-393 [facility] HospitalInnovashop.tv [id number] 07:06:00 Test Item Value Reference Range Interpretation Comments Lactic Acid Lvl (test code = Lactic 3.1 0.5-2.2 Acid Lvl) [facility] HospitalannBACTERIAL - [id number] 07:05:00 Test Item Value Reference Range Interpretation Comments Source Strep (test code Urine *NA*(04/04/21 = Source Strep) 2:05 AM) [facility] HospitalRuckusBACTERIAL - [id number] 07:05:00 Test Item Value Reference Range Interpretation Comments Strep pneumoniae Ag Negative (04/04/21 (test code = Strep 2:05 AM) pneumoniae Ag) [facility]SEQU[facility] [id number] 07:05:00 Test Item Value Reference Range Interpretation Comments Ca Ion WB (test code = Ca Ion WB) 0.94 1.05-1.25 [facility] HospitalRuckusPARATHYROID [id number] 07:05:00 Test Item Value Reference Range Interpretation Comments Ca Norm WB (test code = Ca Norm WB) 0.86 1.05-1.25 [facility] HospitalLrsmlwxNGOSUTHPKQ5382-62-91 07:03:00 Test Item Value Reference Range Interpretation Comments HIV Ag/Ab 4th Gen Negative *NA*(04/04/21 (test code = HIV 2:03 AM) Ag/Ab 4th Gen) [facility] HospitalGgicncgRQGLGRBLHV3935-40-97 07:03:00 Test Item Value Reference Range Interpretation Comments Vir Ld-HIV1 RNA (test Not Detected (04/04/21 code = Vir Ld-HIV1 2:03 AM) RNA) [facility] HospitalVtmqaudEFOWBDATOH6130-65-41 07:03:00 Test Item Value Reference Range Interpretation Comments Log10 HIV1 (test code = Log10 HIV1) no gt [facility] HospitalannURINE [id number] 07:03:00 Test Item Value Reference Range Interpretation Comments U Creatinine (test code = U 213.00 Creatinine) [facility] [id number] 07:03:00 Test Item Value Reference Range Interpretation Comments U Sodium (test code = U Sodium) 21 [facility] [id number] 07:03:00 Test Item Value Reference Range Interpretation Comments U Potassium (test code = U Potassium) 60.9 [facility] [id number] 07:03:00 Test Item Value Reference Range Interpretation Comments U Chloride (test code = U Chloride) 36 [facility] [id number] 07:03:00 Test Item Value Reference Range Interpretation Comments U Creatinine (test code = U 213.00 Creatinine) [facility] [id number] 07:03:00 Test Item Value Reference Range Interpretation Comments U Protein (test code = U Protein) 973.6 [facility] [id number] 07:03:00 Test Item Value Reference Range Interpretation Comments U Prot/Creat (test code = U 4.57 1 Prot/Creat) [facility] HospitalCARDIAC [id number] 04:43:00 Test Item Value Reference Range Interpretation Comments BNP (test code = BNP) 745 [facility] HospitalCHEM [id number] 04:43:00 Test Item Value Reference Range Interpretation Comments Lactic Acid Lvl (test code = Lactic 1.6 0.5-2.2 Acid Lvl) [facility] [id number] 04:43:00 Test Item Value Reference Range Interpretation Comments Source Respiratory Nasophrngl Swb Panel PCR (test code = *NA*(04/03/21 11:43 PM) Source Respiratory Panel PCR) [facility] [id number] 04:43:00 Test Item Value Reference Range Interpretation Comments Influenza A PCR (test Negative *NA*(04/03/21 code = Influenza A PCR) 11:43 PM) [facility] HospitalannAMG [facility] EDMONDULAR [id number] 04:43:00 Test Item Value Reference Range Interpretation Comments Influenza B PCR (test Negative *NA*(04/03/21 code = Influenza B PCR) 11:43 PM) [facility] HospitalannAMG [facility]DULAR [id number] 04:43:00 Test Item Value Reference Range Interpretation Comments RSV PCR (test code = Negative *NA*(04/03/21 RSV PCR) 11:43 PM) [facility] PointeMqroztoLTGZQJXHPQ5718-30-11 02:10:00 Test Item Value Reference Range Interpretation Comments D-Dimer (test code = D-Dimer) >20 ug/mL FEU [place] 573621-08-13 01:51:00 Test Item Value Reference Range Interpretation Comments WBC (test code = WBC) 8.6 3.7-10.4 [place] 573621-08-13 01:51:00 Test Item Value Reference Range Interpretation Comments RBC (test code = RBC) 3.72 4.20-5.40 [place] 573621-08-13 01:51:00 Test Item Value Reference Range Interpretation Comments Hgb (test code = Hgb) 7.7 12.0-16.0 [place] 573621-08-13 01:51:00 Test Item Value Reference Range Interpretation Comments Hct (test code = Hct) 24.9 36.0-48.0 [facility] PointeGqyttbgQKLVKGQKHC5355-90-81 01:51:00 Test Item Value Reference Range Interpretation Comments MCV (test code = MCV) 67.0 80.0-98.0 [facility] PointeRkuypeuQGFSGSDQZK7056-30-64 01:51:00 Test Item Value Reference Range Interpretation Comments MCH (test code = MCH) 20.7 pg 27.0-31.0 [facility] PointeAirxnxmYXMODIMDTU6645-75-34 01:51:00 Test Item Value Reference Range Interpretation Comments MCHC (test code = MCHC) 30.9 32.0-36.0 [facility] PointeEfnpuriMQOKYOJKYC7033-29-88 01:51:00 Test Item Value Reference Range Interpretation Comments RDW (test code = RDW) 18.4 11.5-14.5 [place] 573621-08-13 01:51:00 Test Item Value Reference Range Interpretation Comments Platelet (test code = Platelet) 173 133-450 [facility] PointeFjbagheKKDNCUDJES1098-01-64 01:51:00 Test Item Value Reference Range Interpretation Comments MPV (test code = MPV) 8.3 7.4-10.4 [place] 573621-08-13 01:51:00 Test Item Value Reference Range Interpretation Comments Microcyte (test code = 3+ *NA*(04/03/21 8:51 Microcyte) PM) [facility] PointeXgpnwxzDYXHLASFLA1506-06-67 01:51:00 Test Item Value Reference Range Interpretation Comments Neutrophils # (test code = Neutrophils 8.2 1.5-8.1 #) [place] 573621-08-13 01:51:00 Test Item Value Reference Range Interpretation Comments Lymphocytes # (test code = Lymphocytes 0.2 1.0-5.5 #) [place] 573621-08-13 01:51:00 Test Item Value Reference Range Interpretation Comments Monocytes # (test code 0.3 See_Comment [Aut omated message] The = Monocytes #) system which generated this result tra nsmitted reference range : <=0.8. The reference r germania was not used to int erpret this result as normal/abnormal . [place] 573621-08-13 01:51:00 Test Item Value Reference Range Interpretation Comments Segs (test code = Segs) 82.0 45.0-75.0 [place] 573621-08-13 01:51:00 Test Item Value Reference Range Interpretation Comments Bands (test code = 13.0 See_Comment [Automat ed message] The [employer]) system which ge nerated this result transmit diamond reference range : <=11.0. The reference r germania was not used to interpr et this result as kamla l/abnormal. [facility] PointeLzpskxuAZATIDKOHK3824-48-46 01:51:00 Test Item Value Reference Range Interpretation Comments Lymphocytes (test code = Lymphocytes) 2.0 20.0-40.0 [place] 573621-08-13 01:51:00 Test Item Value Reference Range Interpretation Comments Monocytes (test code = Monocytes) 3.0 2.0-12.0 [place] [address]-08-13 01:51:00 Test Item Value Reference Range Interpretation Comments Atypical Lymphs (test code = Atypical 0.0 Lymphs) [place] [address]-08-13 01:51:00 Test Item Value Reference Range Interpretation Comments Plt Morph (test code = Normal (04/03/21 8:51 Plt Morph) PM) [place] 573621-08-13 01:51:00 Test Item Value Reference Range Interpretation Comments Anisocyte (test code = 1+ *ABN*(04/03/21 Anisocyte) 8:51 PM) [facility] HospitalWxgkstwAQJAPTEROJ5821-34-26 01:51:00 Test Item Value Reference Range Interpretation Comments Hypochrom (test code = 1+ (04/03/21 8:51 PM) Hypochrom) [facility] AND [id number] 01:51:00 Test Item Value Reference Range Interpretation Comments UA Color (test code = Kari *ABN*(04/03/21 UA Color) 8:51 PM) [facility] AND [id number] 01:51:00 Test Item Value Reference Range Interpretation Comments UA Turbidity (test code Marked *ABN*(04/03/21 = UA Turbidity) 8:51 PM) [facility] AND [id number] 01:51:00 Test Item Value Reference Range Interpretation Comments UA Spec Grav (test code = UA Spec 1.018 1 Grav) [facility] AND [id number] 01:51:00 Test Item Value Reference Range Interpretation Comments UA pH (test code = UA pH) 5.0 1 5.0-8.0 [facility] AND [id number] 01:51:00 Test Item Value Reference Range Interpretation Comments UA Protein (test code = UA >=300 mg/dL Protein) [facility] AND [id number] 01:51:00 Test Item Value Reference Range Interpretation Comments UA Glucose (test code = UA Negative mg/dL Glucose) [facility] AND [id number] 01:51:00 Test Item Value Reference Range Interpretation Comments UA Ketones (test code = UA Negative mg/dL Ketones) [facility] AND [id number] 01:51:00 Test Item Value Reference Range Interpretation Comments UA Bili (test code = Negative *NA*(04/03/21 UA Bili) 8:51 PM) [facility] AND [id number] 01:51:00 Test Item Value Reference Range Interpretation Comments UA Blood (test code = Moderate *ABN*(04/03/21 UA Blood) 8:51 PM) [facility] AND [id number] 01:51:00 Test Item Value Reference Range Interpretation Comments UA Nitrite (test code Negative (04/03/21 8:51 = UA Nitrite) PM) [facility] AND [id number] 01:51:00 Test Item Value Reference Range Interpretation Comments UA Leuk Est (test code Trace *ABN*(04/03/21 = UA Leuk Est) 8:51 PM) [facility] [id number] 01:51:00 Test Item Value Reference Range Interpretation Comments UA WBC (test code = 51 See_Comment [Automa diamond message] The UA WBC) system which ge nerated this result transmit diamond reference range : <=5. The reference range was not used to interpr et this result as kamla l/abnormal. [facility] [id number] 01:51:00 Test Item Value Reference Range Interpretation Comments UA RBC (test code = 22 See_Comment [Automa diamond message] The UA RBC) system which ge nerated this result transmit diamond reference range : <=2. The reference range was not used to interpr et this result as kamla l/abnormal. [facility] [id number] 01:51:00 Test Item Value Reference Range Interpretation Comments UA Bacteria (test code = UA Occasional /HPF Bacteria) [facility] [id number] 01:51:00 Test Item Value Reference Range Interpretation Comments UA Mucus (test code = UA Mucus) Few /LPF [facility] [id number] 01:51:00 Test Item Value Reference Range Interpretation Comments UA Hyal Cast (test 1 See_Comment [Automat ed message] The code = UA Hyal Cast) system which generated this result transmit diamond reference range : <=2. The reference range was not used to interpr et this result as kamla l/abnormal. [facility] [id number] 01:51:00 Test Item Value Reference Range Interpretation Comments UA Fre[place] Yeast (test code = UA Occasional /HPF Fre[place] Yeast) [facility] [id number] 01:51:00 Test Item Value Reference Range Interpretation Comments UA Sq Epi (test code = UA Sq Epi) None Seen [facility] [id number] 01:51:00 Test Item Value Reference Range Interpretation Comments UA Urobilinogen (test code = UA <=1.0 mg/dL 0.1-1.0 Urobilinogen) [facility] [id number] 01:51:00 Test Item Value Reference Range Interpretation Comments UA CaOx Inessa (test code = UA Occasional /HPF CaOx Inessa) [facility]Culture: [id number] 01:51:00 Test Item Value Reference Range Interpretation Comments Culture: Urine (test code = No Growth Culture: Urine) [facility] HospitalCARPredixion SoftwareAC [id number] 01:30:00 Test Item Value Reference Range Interpretation Comments BNP (test code = BNP) 589 [facility]IA [id number] 01:00:00 Test Item Value Reference Range Interpretation Comments Ferritin Lvl (test code = Ferritin Lvl) 136 5-204 [facility] [id number] 01:00:00 Test Item Value Reference Range Interpretation Comments Total CK (test code = Total CK) 128 12-191 [facility] [id number] 01:00:00 Test Item Value Reference Range Interpretation Comments Troponin-I (test code no gt See_Comment [Auto mated message] The = Troponin-I) system which g enerated this result transmit diamond reference range : <=0.40. The reference r germania was not used to interpr et this result as kamla l/abnormal. [facility] [employer] [id number] 01:00:00 Test Item Value Reference Range Interpretation Comments LDH (test code = LDH) 293 98-192 [facility] [employer] [id number] 01:00:00 Test Item Value Reference Range Interpretation Comments Procalcitonin Lvl (test 55.45 See_Comment [Au tomated message] code = Procalcitonin Lvl) Th e system which generated this result transmitted ref erence range: <=0.10. The reference range was not used to interpr et this result as normal/abnormal . [facility] [employer] [id number] 01:00:00 Test Item Value Reference Range Interpretation Comments Glucose Lvl (test code = Glucose Lvl) 71 70-99 [facility] [employer] [id number] 01:00:00 Test Item Value Reference Range Interpretation Comments BUN (test code = BUN) 38 7-22 [facility] [employer] [id number] 01:00:00 Test Item Value Reference Range Interpretation Comments Creatinine Lvl (test code = Creatinine 3.72 0.50-1.40 Lvl) [place] [id number] 01:00:00 Test Item Value Reference Range Interpretation Comments Sodium Lvl (test code = Sodium Lvl) 138 135-145 [place] [id number] 01:00:00 Test Item Value Reference Range Interpretation Comments Potassium Lvl (test code = Potassium 3.3 3.5-5.1 Lvl) [place] [id number] 01:00:00 Test Item Value Reference Range Interpretation Comments Chloride Lvl (test code = Chloride Lvl) 111 95-109 [place] [id number] 01:00:00 Test Item Value Reference Range Interpretation Comments CO2 (test code = CO2) 15 24-32 [place] [id number] 01:00:00 Test Item Value Reference Range Interpretation Comments Calcium Lvl (test code = Calcium Lvl) 7.4 8.5-10.5 [place] [id number] 01:00:00 Test Item Value Reference Range Interpretation Comments Total Protein (test code = Total 5.0 6.4-8.4 Protein) [place] [id number] 01:00:00 Test Item Value Reference Range Interpretation Comments Albumin Lvl (test code = Albumin Lvl) 1.7 3.5-5.0 [place] [id number] 01:00:00 Test Item Value Reference Range Interpretation Comments ALT (test code = ALT) 17 See_Comment [Auto mated message] The system which ge nerated this result transmit diamond reference range : <=65. The reference range was not used to interpr et this result as kamla l/abnormal. [facility] [id number] 01:00:00 Test Item Value Reference Range Interpretation Comments AST (test code = AST) 15 See_Comment [Auto mated message] The system which ge nerated this result transmit diamond reference range : <=37. The reference range was not used to interpr et this result as kamla l/abnormal. [place] [id number] 01:00:00 Test Item Value Reference Range Interpretation Comments Alk Phos (test code = Alk Phos) 146 39-136 [place] 650821-08-13 01:00:00 Test Item Value Reference Range Interpretation Comments Bili Total (test code = Bili Total) 0.5 0.2-1.3 [facility]2021-08-13 01:00:00 Test Item Value Reference Range Interpretation Comments AGAP (test code = AGAP) 15.3 10.0-20.0 [facility]2021-08-13 01:00:00 Test Item Value Reference Range Interpretation Comments B/C Ratio (test code = B/C Ratio) 10 1 6-25 [place] [id number] 01:00:00 Test Item Value Reference Range Interpretation Comments Globulin (test code = Globulin) 3.3 2.7-4.2 [facility]2021-08-13 01:00:00 Test Item Value Reference Range Interpretation Comments A/G Ratio (test code = A/G Ratio) 0.5 1 0.7-1.6 [place] [id number] 01:00:00 Test Item Value Reference Range Interpretation Comments eGFR (test code = eGFR) 15 [id number] 01:00:00 Test Item Value Reference Range Interpretation Comments PT (test code = PT) 14.5 s 12.0-14.7 [id number] 01:00:00 Test Item Value Reference Range Interpretation Comments INR (test code = INR) 1.14 1 0.85-1.17 [id number] 01:00:00 Test Item Value Reference Range Interpretation Comments C-REACTIVE PROTEIN (test code = 176.0 C-REACTIVE PROTEIN) [id number] 01:00:00 Test Item Value Reference Range Interpretation Comments Coronavirus (COVID-19) Not Detected (04/03/21 ZEUS (test code = 8:00 PM) Coronavirus (COVID-19) ZEUS) [facility]2021-08-13 01:00:00 Test Item Value Reference Range Interpretation Comments E. coli (test code = Not Detected (04/03/21 E. coli) 8:00 PM) [facility]2021-08-13 01:00:00 Test Item Value Reference Range Interpretation Comments K. oxytoca (test code Not Detected (04/03/21 = K. oxytoca) 8:00 PM) [place] [id number] 01:00:00 Test Item Value Reference Range Interpretation Comments K. pneumoniae (test code Detected = K. pneumoniae) *ABN*(04/03/21 8:00 PM) [place] [id number] 01:00:00 Test Item Value Reference Range Interpretation Comments P. aeruginosa (test code Not Detected (04/03/21 = P. aeruginosa) 8:00 PM) [place] [id number] 01:00:00 Test Item Value Reference Range Interpretation Comments Acinetobacter spp. (test Not Detected code = Acinetobacter (04/03/21 8:00 PM) spp.) [place] [id number] 01:00:00 Test Item Value Reference Range Interpretation Comments Citrobacter spp. (test Not Detected (04/03/21 code = Citrobacter spp.) 8:00 PM) [place] [id number] 01:00:00 Test Item Value Reference Range Interpretation Comments Enterobacter spp. (test Not Detected code = Enterobacter spp.) (04/03/21 8:00 PM) [place] [id number] 01:00:00 Test Item Value Reference Range Interpretation Comments Proteus spp. (test Not Detected (04/03/21 code = Proteus spp.) 8:00 PM) [place] [id number] 01:00:00 Test Item Value Reference Range Interpretation Comments CTX-M (ESBL) (test Not Detected (04/03/21 code = CTX-M (ESBL)) 8:00 PM) [place] [id number] 01:00:00 Test Item Value Reference Range Interpretation Comments IMP (carbapenemase) Not Detected (04/03/21 (test code = IMP 8:00 PM) (carbapenemase)) [place] [id number] 01:00:00 Test Item Value Reference Range Interpretation Comments KPC (carbapenemase) Not Detected (04/03/21 (test code = KPC 8:00 PM) (carbapenemase)) [place] [id number] 01:00:00 Test Item Value Reference Range Interpretation Comments NDM (carbapenemase) Not Detected (04/03/21 (test code = NDM 8:00 PM) (carbapenemase)) [facility] [id number] 01:00:00 Test Item Value Reference Range Interpretation Comments OXA (carbapenemase) Not Detected (04/03/21 (test code = OXA 8:00 PM) (carbapenemase)) [facility]2021-08-13 01:00:00 Test Item Value Reference Range Interpretation Comments VIM (carbapenemase) Not Detected (04/03/21 (test code = VIM 8:00 PM) (carbapenemase)) [facility]
[2022-07-07] MEDS ORDERED: ONDANSETRON 4 MG/2 ML VIAL ONE ×2 (12:55→15:16)
[2022-07-07] MEDS ORDERED: FAMOTIDINE 20 MG/2 ML VIAL IV ONE (12:56)
[2022-07-07] MEDS ORDERED: DICYCLOMINE HCL 20 MG/2 ML AMP IM ONE (12:56)
[2022-07-07 13:16] LABS: Urine Blood 2+ (Negative); Urine Glucose Negative (Negative); Urine Protein 3+ (Negative); Urine Specific Gravity 1.025 (1.005-1.030)
[2022-07-07 13:29] LABS: Urine Mucus Slight /HPF (None Seen); Urine RBC 21-50 /HPF (None Seen)
--- NOTE | 2022-07-07 13:29 | RAD REPORT ---
EXAM DESCRIPTION: RAD - Chest Single View - 07/07/2022 1:14 pm CLINICAL HISTORY: vomiting COMPARISON: Portable 04/20/2022 and 03/11/2022 TECHNIQUE: AP portable chest image was obtained 07/07/2022 1:14 pm . FINDINGS: Lung volumes are low accentuating the baseline interstitial pattern. Interstitial markings are decreased in prominence from the April 20 examination. No focal consolidation or mass. Very min imal edema or infiltrate could be masked. Heart and vasculature are normal. No measurable pleural effusion and no pneumothorax. No acute bony a bnormality seen. No acute aortic findings suspected. Left-sided central line has been removed since p rior examination. IMPRESSION: Limited portable study without acute cardiopulmonary finding.
[2022-07-07 14:02] LABS: Urine Specific Gravity/Preg 1.025 (1.005-1.030)
[2022-07-07 14:04] LABS: SARS-COV-2 RT PCR NEGATIVE (NEGATIVE)
[2022-07-07 14:08] LABS: Absolute Lymphocytes (CBC) 1.3 K/uL (0.7-4.9); Hematocrit 30.4 % (36.0-45.0); Lymphocytes % 35.9 % (15.3-44.8); MCV 73.9 fL (80-100); RBC Red Blood Cell Count 4.12 M/uL (3.86-4.86)
[2022-07-07 14:24] LABS: Albumin 2.9 g/dL (3.4-5.0); Bilirubin Total 0.3 mg/dL (0.2-1.0); Potassium 3.6 mmol/L (3.5-5.1); Protein, Total 6.1 g/dL (6.4-8.2)
[2022-07-07 14:26] LABS: Blood Morphology Comment NOT SEEN (NOT SEEN); Platelet Estimate DECR; White Blood Cell Scan OK (OK)
[2022-07-07] MEDS ORDERED: MORPHINE 4 MG/ML SYR ONE (15:16)
[2022-07-07] MEDS ORDERED: D10W 250 ML IV ONE (15:20)
--- NOTE | 2022-07-07 16:27 | RAD REPORT ---
EXAM DESCRIPTION: CT - Abdomen Pelvis Wo Contrast - 07/07/2022 4:14 pm CLINICAL HISTORY: vomiting COMPARISON: Abdomen Pelvis Wo Contrast dated 04/25/2022 TECHNIQUE: Axial [address] imaging of the abdomen and pelvis was performed without IV contrast. No IV contrast was given because of allergy, abnormal renal function, patient refusal or physician re quest. Oral contrast was given. All CT scans are performed using dose optimization technique as appropriate and may include automated exposure control or mA/KV adjustment according to patient size. FINDINGS: No suspicious findings in the lung bases. The liver, spleen and pancreas show no suspicious findings on non-contrast imaging. Multiple gallston es are present. Gallbladder wall does not appear thickened or edematous. No biliary tree dilatation. Gallstones have been previously seen. No hydronephrosis or suspicious renal mass. No significant adrenal finding. Isodense renal masses an d pyelonephritis cannot be excluded in the absence of IV contrast. Urinary bladder is only partially filled but grossly normal. IUD is in place within the uterus. Left fundal fibroid is present similar to comparison. No ovarian abnormality suspected. No gastric dilatation or gastric wall thickening. No acute small bowel finding seen. Oral contrast desir s reached the ostomy bag. No colon wall thickening or edema. Contrast material is present in the rect um similar to prior imaging. This is believed to be chronic from a remote diagnostic study. Remnant s igmoid colon shows no acute finding. At the ostomy site there is no peristomal hernia or abnormal str anding/edema. No edema or congestion of the peritoneal fat. No free air, free fluid or inflammatory stranding. No hernia, mass or bulky lymphadenopathy. No suspicious bony findings. IMPRESSION: Non-contrast enhanced CT abdomen and pelvis imaging show no acute or emergent finding. Full assessment is limited is the absence of IV contrast.
[2022-07-07] MEDS ORDERED: NA CHLORIDE 0.9% 1,000 ML ONE (16:36)
[2022-07-07] MEDS ORDERED: MORPHINE 2 MG/ML SYR ONE (17:05)
--- NOTE | 2022-07-07 17:23 | ER ---
Nurse's Notes [facility] Name: Arianne Mendez Age: 32 yrs Sex: Female : 1990 Arrival Date: 07/07/2022 Time: 11:52 Bed 30 Private MD: Diagnosis: Nausea with vomiting, unspecified;Abdominal pain, unspecified Presentation: 07/07 12:28 Chief complaint: Patient states: abd pain and vomiting since yesterday. jl7 12:28 Coronavirus screen: At this time, the client does not indicate any symptoms associated jl7 with coronavirus-19. Ebola Screen: No symptoms or risks identified at this time. Initial Sepsis Screen: Does the patient meet any 2 criteria? No. Patient's initial sepsis screen is negative. Does the patient have a suspected source of infection? No. Patient's initial sepsis screen is negative. Risk Assessment: Do you want to hurt yourself or someone else? Patient reports no desire to harm self or others. Onset of symptoms was July 06, 2022. 12:28 Method Of Arrival: Wheelchair jl7 12:28 Acuity: MADY 3 jl7 Triage Assessment: 12:28 General: Appears in no apparent distress. uncomfortable, Behavior is calm, cooperative, jl7 appropriate for age. Pain: Complains of pain in abdomen Pain currently is 9 out of 10 on a pain scale. GI: Reports nausea, vomiting. 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 - Social history:: Smoking status: Patient denies any tobacco usage or history of. Screenin:45 Abuse screen: Denies threats or abuse. Nutritional screening: No deficits noted. em6 Tuberculosis screening: No symptoms or risk factors identified. 13:53 Fall Risk IV access (20 points). Ambulatory Aid- None/Bed Rest/Nurse Assist (0 pts). em6 Total Chambers Fall Scale indicates No Risk (0-24 pts). Assessment: 12:25 Reassessment: OSMAN Doe in triage assessing pt. jl7 12:40 General: Appears uncomfortable, Behavior is cooperative. Pain: Complains of pain in em6 abdomen Pain does not radiate. Pain currently is 9 out of 10 on a pain scale. Quality of pain is described as sharp. Neuro: Level of Consciousness is awake, alert, obeys commands, Oriented to person, place, time, situation. Cardiovascular: Heart tones present Patient's skin is warm and dry. Respiratory: Airway is patent Respiratory effort is even, unlabored, Respiratory pattern is regular, symmetrical. GI: Abdomen is non-distended, Colostomy site is clean and dry. is intact. Abd is soft and non tender X 4 quads. Reports nausea, vomiting. : No signs and/or symptoms were reported regarding the genitourinary system. EENT: No signs and/or symptoms were reported regarding the EENT system. Derm: No signs and/or symptoms reported regarding the dermatologic system. Musculoskeletal: Circulation, motion, and sensation intact. 13:40 Reassessment: No changes from previously documented assessment. Patient and/or family em6 updated on plan of care and expected duration. Pain level reassessed. Patient is alert, oriented x 3, equal unlabored respirations, skin warm/dry/pink. 14:40 Reassessment: No changes from previously documented assessment. Patient and/or family em6 updated on plan of care and expected duration. Pain level reassessed. Patient is alert, oriented x 3, equal unlabored respirations, skin warm/dry/pink. 15:30 Neuro: [place] Agitation-Sedation Scale (RASS): 0 - Alert and Calm. em6 15:40 Reassessment: No changes from previously documented assessment. Patient and/or family em6 updated on plan of care and expected duration. Pain level reassessed. Patient is alert, oriented x 3, equal unlabored respirations, skin warm/dry/pink. 16:40 Reassessment: No changes from previously documented assessment. Patient and/or family em6 updated on plan of care and expected duration. Pain level reassessed. Patient is alert, oriented x 3, equal unlabored respirations, skin warm/dry/pink. 17:03 Reassessment: patient tolerated food .no vomiting noted. patient states abdominal pain em6 provider notified. 17:48 Reassessment: waiting for transportation. em6 Vital Signs: 12:28 BP 143 / 113; Pulse 85; Resp 15; Temp 98; Pulse Ox 100% ; Weight 71.21 kg; Height 5 ft. jl7 3 in. (160.02 cm); Pain 9/10; 13:53 BP 140 / 108; Pulse 82; Resp 18; Pulse Ox 100% on R/A; em6 14:45 BP 140 / 108; Pulse 75; Resp 18; Pulse Ox 98% on R/A; eh3 15:30 BP 149 / 122; Pulse 88; Resp 18; Pulse Ox 100% on R/A; eh3 16:54 BP 144 / 109; Pulse 74; Resp 18; Pulse Ox 100% on R/A; em6 12:28 Body Mass Index 27.81 (71.21 kg, 160.02 cm) jl7 ED Course: 11:52 Patient arrived in ED. rg4 11:55 Nader Zepeda PA is PHCP. cp 11:55 Dyllan Pollack MD is Attending Physician. cp 12:28 Arm band placed on right wrist. jl7 12:29 Triage completed. jl7 12:44 Trena Darden, RN is Primary Nurse. em6 12:45 Bed in low position. Call light in reach. Side rails up X2. Pulse ox on. NIBP on. Warm em6 blanket given. 13:15 XRAY Chest (1 view) In Process Unspecified. EDMS 13:15 COVID-19/FLU A+B (Document "Date of Onset" if Symptomatic) Sent. em6 13:47 Accessed peripheral vein via ultrasound, utilizing dynamic ultrasound technique using jd3 20G Nexia IV catheter ,sterile technique, per hospital protocol. Clean \\T\\ dry. Dressing loose. Good blood return. Flushes easily. 13:52 COVID-19/FLU A+B (Document "Date of Onset" if Symptomatic) Sent. em6 13:53 CBC with Diff Sent. em6 13:53 CMP Sent. em6 13:53 Lipase Sent. em6 16:16 Abdomen In Process Unspecified. EDMS 17:27 No provider procedures requiring assistance completed. em6 18:08 IV discontinued, intact, bleeding controlled, No redness/swelling at site. Pressure eh3 dressing applied. Administered Medications: 13:15 Drug: Dicyclomine 20 mg Route: IM; Site: right deltoid; em6 14:00 Follow up: Response: No adverse reaction em6 13:53 Drug: Pepcid (famotidine) 20 mg Route: IVP; Site: left antecubital; em6 14:31 Follow up: Response: No adverse reaction em6 13:53 Drug: Zofran (Ondansetron) 4 mg Route: IVP; Site: left antecubital; em6 14:30 Follow up: Response: No adverse reaction em6 15:33 Drug: D50W 50 ml Route: IVP; Site: left antecubital; eh3 16:00 Follow up: Response: No adverse reaction em6 15:33 Drug: Zofran (Ondansetron) 4 mg Route: IVP; Site: left antecubital; eh3 16:00 Follow up: Response: No adverse reaction em6 15:33 Drug: morphine 2 mg Route: IVP; Infused Over: 4 mins; Site: left antecubital; eh3 16:00 Follow up: Response: No adverse reaction; RASS: Alert and Calm (0) em6 16:44 Drug: NS 0.9% 1000 ml Route: IV; Rate: 1 bolus; Site: left antecubital; em6 17:49 Follow up: Response: No adverse reaction; IV Status: Completed infusion; IV Intake: em6 1000ml 17:07 Drug: morphine 2 mg Route: IVP; Infused Over: 4 mins; Site: left antecubital; em6 17:21 Follow up: Response: No adverse reaction; RASS: Alert and Calm (0) em6 Medication: 17:27 VIS not applicable for this client. em6 Intake: 17:49 IV: 1000ml; Total: 1000ml. em6 Outcome: 17:23 Discharge ordered by MD. tirado 18:08 Discharged to home ambulatory. 3 18:08 Condition: stable 18:08 Discharge instructions given to patient, family, Instructed on discharge instructions, follow up and referral plans. Demonstrated understanding of instructions, follow-up care. 18:09 Patient left the ED. 3 Signatures: Dispatcher [employer] EDMS Nader Zepeda PA PA cp Garcia, Rubi rg4 Christel Rosen, RN RN jl7 Abner Rai, RN RN jd3 Malka Saldana, RN RN eh3 Trena Darden, RN RN em6 Corrections: (The following items were deleted from the chart) 13:57 12:40 GI: Abdomen is non-distended, Bowel sounds present X 4 quads. Abd is soft and non em6 tender X 4 quads. em6 17:18 15:30 Neuro: [place] Agitation-Sedation Scale (RASS): 0 - Alert and Calm eh3 em6 17:19 17:03 Reassessment: patient tolerated food. em6 em6 17:26 12:40 GI: Abdomen is non-distended, Bowel sounds present X 4 quads. Abd is soft and non em6 tender X 4 quads. Reports nausea, vomiting, em6 17:27 12:40 GI: Abdomen is non-distended, Colostomy site is clean and dry. is intact. Bowel em6 sounds present X 4 quads. Abd is soft and non tender X 4 quads. Reports nausea, vomiting, em6
--- NOTE | 2022-07-07 17:23 | EDPHYS ---
Physician Documentation [facility] Name: Arianne Mendez Age: 32 yrs Sex: Female : 1990 Arrival Date: 07/07/2022 Time: 11:52 Bed 30 Private MD: ED Physician Dyllan Pollack HPI: 07/07 12:45 This 32 yrs old Black Female presents to ER via Wheelchair with complaints of Abdominal cp Pain, Vomiting. 12:45 The patient presents with abdominal pain that is diffuse. Onset: The symptoms/episode cp began/occurred yesterday. 12:45 Associated signs and symptoms: Pertinent positives: anorexia, Pertinent negatives: cp blood in stools, constipation, diarrhea, fever, vomiting blood. The symptoms are described as constant. Severity of pain: in the emergency department the pain is unchanged despite home interventions. 12:45 The symptoms do not radiate. 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 - Social history:: Smoking status: Patient denies any tobacco usage or history of. ROS: 12:50 Eyes: Negative for injury, pain, redness, and discharge. cp 12:50 Constitutional: Negative for body aches, chills, fever, poor PO intake. 12:50 Cardiovascular: Negative for chest pain, edema, palpitations. cp 12:50 Respiratory: Negative for cough, shortness of breath, wheezing. 12:50 ENT: Negative for drainage from ear(s), ear pain, sore throat, difficulty swallowing, cp difficulty handling secretions. 12:50 Abdomen/GI: Positive for abdominal pain, nausea and vomiting, Negative for diarrhea, constipation, black/tarry stool. 12:50 : Negative for urinary symptoms. 12:50 Neuro: Negative for altered mental status, headache, weakness. 12:50 All other systems are negative. cp Exam: 12:55 Constitutional: The patient appears in no acute distress, alert, awake, non-toxic, well cp developed, well nourished. 12:55 Head/Face: Normocephalic, atraumatic. cp 12:55 Eyes: Periorbital structures: appear normal, Conjunctiva: normal, no exudate, no injection, Sclera: no appreciated abnormality, Lids and lashes: appear normal, bilaterally. 12:55 ENT: External ear(s): are unremarkable, Nose: is normal, Mouth: Lips: moist, Oral cp mucosa: pink and intact, moist, Posterior pharynx: Airway: no evidence of obstruction, patent. 12:55 Chest/axilla: Inspection: normal. 12:55 Cardiovascular: Rate: normal, Rhythm: regular. 12:55 Respiratory: the patient does not display signs of respiratory distress, Respirations: normal, no use of accessory muscles, no retractions, labored breathing, is not present, Breath sounds: are clear throughout, no decreased breath sounds, no stridor, no wheezing. 12:55 Abdomen/GI: Inspection: scar(s), Bowel sounds: active, all quadrants, Palpation: soft, in all quadrants, moderate abdominal tenderness, in all quadrants, rebound tenderness, is not appreciated, involuntary guarding, is not appreciated, left side mid abdomen colostomy. 12:55 Back: CVA tenderness, is absent. 12:55 Skin: no rash present. 12:55 Neuro: Orientation: to person, place \\T\\ time. Mentation: is normal. Vital Signs: 12:28 BP 143 / 113; Pulse 85; Resp 15; Temp 98; Pulse Ox 100% ; Weight 71.21 kg; Height 5 ft. jl7 3 in. (160.02 cm); Pain 9/10; 13:53 BP 140 / 108; Pulse 82; Resp 18; Pulse Ox 100% on R/A; em6 14:45 BP 140 / 108; Pulse 75; Resp 18; Pulse Ox 98% on R/A; eh3 15:30 BP 149 / 122; Pulse 88; Resp 18; Pulse Ox 100% on R/A; eh3 16:54 BP 144 / 109; Pulse 74; Resp 18; Pulse Ox 100% on R/A; em6 12:28 Body Mass Index 27.81 (71.21 kg, 160.02 cm) jl7 MDM: 12:38 Patient medically screened. cp 17:23 Data reviewed: vital signs, nurses notes, lab test result(s), radiologic studies, CT cp scan. 17:23 Differential diagnosis: bowel obstruction, diverticulitis, gastritis, pancreatitis. cp Counseling: I had a detailed discussion with the patient and/or guardian regarding: the historical points, exam findings, and any diagnostic results supporting the discharge/admit diagnosis, lab results, radiology results. Response to treatment: the patient's symptoms have markedly improved after treatment, Nausea and pain improved, vomiting resolved. Will discharge to home for continued monitoring. Special discussion: Based on the patient's Hx, exam, and Dx evaluation, there is no indication for emergent surgery or inpatient Tx. It is understood by the patient/guardian that if the Sx's persist or worsen they need to return immediately for re-evaluation. 07/07 12:45 Order name: CBC with Diff; Complete Time: 14:37 cp 07/07 14:37 Interpretation: Normal except: WBC 3.60; HGB 9.5; HCT 30.4; MCV 73.9; MCH 23.1; MCHC cp 31.2; PLT 93; RDW 18.5; MN% 16.9; BASO% 2.2; NEUT A 1.6. 07/07 12:45 Order name: CMP; Complete Time: 14:37 cp 07/07 16:35 Interpretation: Normal except: CL 112; CO2 19; ANION GAP 16.6; GLUC 51; BUN 19; CRE cp 2.92; GFR 21; A/G 0.9; ALB 2.9; TP 6.1. 07/07 12:45 Order name: Lipase; Complete Time: 14:37 cp 07/07 12:45 Order name: Urine Microscopic Only; Complete Time: 14:37 cp 07/07 16:35 Interpretation: Normal except: URBC 21-50. 07/07 12:45 Order name: COVID-19/FLU A+B (Document "Date of Onset" if Symptomatic); Complete Time: cp 14:37 07/07 13:15 Order name: Urine --Ancillary (enter results); Complete Time: 14:37 bd 07/07 12:45 Order name: XRAY Chest (1 view); Complete Time: 14:37 07/07 13:16 Order name: Urine Dipstick-Ancillary; Complete Time: 14:37 EDMS 07/07 16:35 Interpretation: Normal except: UKET 1+; UBLD 2+; UPROT 3+. cp 07/07 13:36 Order name: Abdomen ; Complete Time: 16:30 EDMS 07/07 16:32 Interpretation: Report reviewed. 07/07 14:26 Order name: CBC Smear Scan; Complete Time: 14:37 EDMS 07/07 17:25 Order name: Glucose, Ancillary Testing; Complete Time: 17:39 EDMS 07/07 12:45 Order name: IV Saline Lock; Complete Time: 13:52 07/07 12:45 Order name: Labs collected and sent; Complete Time: 13:52 07/07 12:45 Order name: Urine Test (obtain specimen); Complete Time: 13:16 07/07 16:32 Order name: PO challenge: juice and sandwich; Complete Time: 16:44 07/07 17:05 Order name: Accucheck Blood Glucose; Complete Time: 17:14 cp Administered Medications: 13:15 Drug: Dicyclomine 20 mg Route: IM; Site: right deltoid; em6 14:00 Follow up: Response: No adverse reaction em6 13:53 Drug: Pepcid (famotidine) 20 mg Route: IVP; Site: left antecubital; em6 14:31 Follow up: Response: No adverse reaction em6 13:53 Drug: Zofran (Ondansetron) 4 mg Route: IVP; Site: left antecubital; em6 14:30 Follow up: Response: No adverse reaction em6 15:33 Drug: D50W 50 ml Route: IVP; Site: left antecubital; eh3 16:00 Follow up: Response: No adverse reaction em6 15:33 Drug: Zofran (Ondansetron) 4 mg Route: IVP; Site: left antecubital; eh3 16:00 Follow up: Response: No adverse reaction em6 15:33 Drug: morphine 2 mg Route: IVP; Infused Over: 4 mins; Site: left antecubital; eh3 16:00 Follow up: Response: No adverse reaction; RASS: Alert and Calm (0) em6 16:44 Drug: NS 0.9% 1000 ml Route: IV; Rate: 1 bolus; Site: left antecubital; em6 17:49 Follow up: Response: No adverse reaction; IV Status: Completed infusion; IV Intake: em6 1000ml 17:07 Drug: morphine 2 mg Route: IVP; Infused Over: 4 mins; Site: left antecubital; em6 17:21 Follow up: Response: No adverse reaction; RASS: Alert and Calm (0) em6 Disposition: 18:39 Co-signature as Attending Physician, Dyllan Pollack MD. rn Disposition Summary: 07/07/22 17:23 Discharge Ordered Location: Home cp Problem: new cp Symptoms: have improved cp Condition: Stable cp Diagnosis - Nausea with vomiting, unspecified cp - Abdominal pain, unspecified cp Followup: cp - With: Private Physician - When: 1 - 2 days - Reason: Recheck today's complaints Discharge Instructions: - Discharge Summary Sheet cp - Abdominal Pain, Adult cp - Nausea and Vomiting, Adult cp Forms: - Medication Reconciliation Form cp - Thank You Letter cp - Antibiotic Education cp - Prescription Opioid Use cp Signatures: Dispatcher [employer] EDMS Dyllan Pollack MD MD rn Nader Zepeda, OSMAN PA cp Christel Rosen, RN RN jl7 Malka Saldana, VERNELL RN eh3 Trena Darden RN RN em6 Corrections: (The following items were deleted from the chart) 13:36 13:13 Abdomen Pelvis W Con+CT.RAD.BRZ ordered. EDVA EDVA 16:33 07/06 12:50 Constitutional: Negative for body aches, chills, fever, poor PO intake, cp cp 07/07 16:33 07/06 12:50 Eyes: Negative for injury, pain, redness, and discharge, cp cp 07/07 16:35 15:07 Normal except: CL 112; CO2 19; ANION GAP 16.6; GLUC 51; BUN 19; CRE 2.92; GFR 21. cp cp 07/08 18:00 07/07 12:45 Onset: The symptoms/episode began/occurred this morning, cp cp 07/08 18:07 07/07 12:50 All other systems are negative, cp cp
[2022-07-07 18:20] VITALS: TEMP 98
[2022-07-07 18:29] VITALS: O2SAT 100
[2022-07-07 18:31] VITALS: BP 144/109
== END 2022-07-07 18:09 | disposition home or self-care (01) ==
LOC: ER 11:48
DX: R11.2 Nausea with vomiting, unspecified (principal); R10.9 Unspecified abdominal pain; I12.9 Hypertensive chronic kidney disease with stage 1 through stage 4 chronic kidney disease, or unspecified chronic kidney disease; N18.4 Chronic kidney disease, stage 4 (severe); Z20.822 Contact with and (suspected) exposure to COVID-19; Z88.5 Allergy status to narcotic agent
CPT/HCPCS: 85025; 36415; 81025; 82947; 83690; 80053; 0240U; 74176; 71045; J0500; J2270; J7030; J2405 ×2; 81003; 81015; 96361; 96372; 96374; 96375; 99284

== ENCOUNTER 2022-09-15 14:31 | Emergency (ER) | payer BC ==
--- OUTSIDE RECORDS SUMMARY | 2022-09-15 14:45 | XMS REPORT | Continuity of Care Document ---
:1990 Author Organization [facility] t Address [address] [place] [address] Care Team Providers Name Role Phone GRACE POTTS Primary Care Physician Unavailable Sage TORRES, Nataly Roberts Attending Clinician [phone] Raul TORRES, Uri Mcpherson Attending Clinician Elo TORRES, Justin Attending Clinician Rosa TORRES, Andie Ramirez Attending Clinician Janes TORRES, Huong Duong Attending Clinician Kinga TORRES, Julien Patiño Attending Clinician Thierno TORRES, Corrina Booker Attending Clinician Suzetet Grullon MD Attending Clinician [phone] SUZETTE GRULLON Attending Clinician Unavailable NATALY PITTS Attending Clinician Unavailable SHAHID OSHEA Attending Clinician Unavailable LUZ MARIA LAMBERT Attending Clinician Unavailable Luz Maria Lambert DO Attending Clinician JAZLYN WARE Attending Clinician Unavailable Joelle Pelletier DO Attending Clinician Jazlyn Ware MD Attending Clinician OMID AUGUSTIN Attending Clinician Unavailable Maryjo Dixon MD Attending Clinician Lashell Hennessy MD Attending Clinician Jose TORRES, Dai Siddiqui Attending Clinician Alicia TORRES, Gwen Espinoza Attending Clinician DAI GARCIA Attending Clinician Unavailable TOBI BLANCO Attending Clinician Unavailable Pob, [facility] Attending Clinician Unavailable Felicita Grimaldo MD Attending Clinician FELICITA GRIMALDO Attending Clinician Unavailable Doctor Unassigned, [place] Attending Clinician Unavailable Grace Potts DO Attending Clinician GRACE POTTS Attending Clinician Unavailable JACK ROLLE Attending Clinician Unavailable HONORIO FELICIANO Attending Clinician Unavailable UNKNOWN, ATTENDING Attending Clinician Unavailable JUSTIN GASCA Admitting Clinician Unavailable LUZ MARIA LAMBERT Admitting Clinician Unavailable JOELLE PELLETIER Admitting Clinician Unavailable OMID AUGUSTIN Admitting Clinician Unavailable GWEN VARGAS Admitting Clinician Unavailable LYNSEY TAPIA Admitting Clinician Unavailable HONORIO FELICIANO Admitting Clinician Unavailable Payers Payer Name Policy Type Policy Number Effective Date Expiration Date S ource BCBS PPO POS EPO [id number] 2020 00:00:00 CHOICE [employer] [place] [id number] 2020 00:00:00 0450 [id number] 1959 00:00:00 BCBS 2 [id number] 2021 00:00:00 [employer] [facility] [id number] 2014 00:00:00 Problems Condition Condition Condition Status Onset Resolution Last Treating Co mments Source Name Details Category Date Date Treatment Clinician Date PAULO (acute PAULO (acute Disease Active 2021-[address] kidney kidney 2-24 [facility]) injury) 00:[facility] Medical 00 Center Weakness Weakness Disease [facility] lower lower 00:00: Medical extremitie extremitie 00 Ce nter s s Colostomy Colostomy Disease Active [facility] complicati complicati 04-02 Madeleine kes on, on, 00:00: Medical unspecifie unspecifie 00 Ce nter d d Diverticul Diverticul Disease Active [facility] itis itis 8-10 [facility] Center SEPSIS, SEPSIS, Diagnosis Active 2021-04-17 Memoria RESPIRATOR RESPIRATOR 04-04 21:44:00 l Y FAILURE Y FAILURE 00:00: Herm maninder Active 00 04/04/2021 [facility] ACUTE ACUTE Diagnosis Active 2021-04-09 Mem oria RESPIRATOR RESPIRATOR 04-03 21:52:00 l Y FAILURE Y FAILURE 00:00: Amira maninder WITH WITH 00 HYPO[facility]IA [facility] SOB Diagnosis Active 2021-04-03 Mem oria Active 04-03 19:22:00 l 04/03/2021 00:00: Matthieu del angel [facility] 00 [place] Acute Acute Disease Active [facility] St renal renal [facility] failure on failure on Ar dical dialysis dialysis Center Lupus Lupus Disease Active [facility] Systemic Systemic Problem Active 2021-04-13 Memoria lupus lupus 22:21:04 l erythemato erythemato He rmann bo bo (disorder) (disorder) Active Problem 04/13/2021 Jamilah Corado [facility] ILLNESS, ILLNESS, Diagnosis Active 2021-04-17 Memoria UNSPECIFIE UNSPECIFIE 21:44:00 l D D Active [place] [facility] Hypertensi Hypertens Problem Active 2021-04-13 Memoria ve iron 22:21:04 l disorder, disorder, Herm maninder systemic systemic arterial arterial (disorder) (disorder) Active Problem 04/13/2021 Jamilah Corado History of Past Illness Condition Condition Condition Status Onset Resolution Last Treating Co mments Source Name Details Category Date Date Treatment Clinician Date Morbid Morbid Problem 2021-04-13 2021-04-13 Memoria (severe) (severe) 04-08 22:21:04 22:21:04 l obesity obesity 17:00: [place] due to due to 00 excess excess calories calories 04/08/2021 04/13/2021 Jamilah Corado [facility] Allergies, Adverse Reactions, Alerts Allergy Allergy Status Severity Reaction(s) Onset Inactive Treating Comm ents Source Name Type Date Date Clinician Gabapent Drug Active Other (See tremors [facility] in Allergy Comments) 09-07 [facility] Medical 00 Center GABAPENT Allergy Active High Other [facility] IN 09-07 00:00: 00 Piperaci Propensi Active Swelling Patient [facility] to 08-29 had [facility] obactam adverse 00:00: isolated Medica l reaction 00 swelling Center s of lip on 08/29/21 after getting 5 doses of Zosyn. Thus may not be reaction to Zosyn but no other new medicatio ns were started. PIPERACI Allergy Active High Swelling [facility] 08-29 [facility] OBACTAM 00:00: Medical 00 Center GABAPENT DRUG Active Other-Cmnt 2021-08 Univ ers IN INGREDI 0-17 ity of 00:00: [place] [facility] Gabapent Propensi Active Other - See 2021-08 Shaking Univers in ty to comments 0-17 and ity of adverse 00:00: couldn't [place] reaction 00 talk Medical s Branch Ketorola Propensi Active Other (See Advised [facility] c ty to Comments) 8-10 by her [facility] adverse 00:00: Nephrolog Medica l reaction 00 ist not Center s to take it Tramadol Drug Active She was [facility] Allergy 8-10 told by Vita 00:00: her Medical 00 Nephrolog Center ist not to take it KETOROLA Allergy Active Other [facility] C 8-10 [facility] 00:[facility]: Medical 00 Center TRAMADOL Allergy Active [facility] 8-10 [facility] 00[facility]: Medical 00 Center MELOXICA DRUG Active Unknown-Cmnt Un yasmani M INGREDI 7- ity of 00:00: [place] 00 Medical Branch KETOROLA DRUG Active Unknown-Cmnt Un yasmani C INGREDI - ity of 00:00: [place] 00 Medical Branch Meloxica Propensi Active Unknown - Uni vers m ty to See comments - ity of adverse 00:00: [place] reaction 00 Medical s Branch Ketorola Propensi Active Unknown - Uni vers c ty to See comments 7-21 ity of adverse 00:00: [place] reaction 00 Medical s Branch NO KNOWN Allergy Active [facility] ALLERGIE S Social History Social Habit Start Date Stop Date Quantity Comments Source Exposure to 2022-06-03 2022-06-13 [facility]00 [facility] (event) [place] Social History 2021-04-05 2021-04-05 [facility] 05:31:53 05:31:53 Tobacco use and 2019-10-16 2019-10-16 Smokeless tobacco Un iversity of exposure 00:00:00 00:00:00 non-user [facility] Sex Assigned At [address] [facility] kes 00:00:00 00:00:00 Medical Center Smoking Status Start Date Stop Date Source Never smoked tobacco [facility] Medications Ordered Filled Start Stop Current Ordering Indication Dosage Frequency Signature Comments Components Source Medication Medication Date Date Medication? Clinician (SIG) Name Name pantoprazol Yes 40mg Q.5D Inject [address] e 1-20 mg [facility] (PROTONIX) 18:10: intravenou M edical 40 mg in NS 53 sly 2 Center 100 mL (two) (V2B) IVPB times daily. cholecalcif Yes 5000U QD Take 5,[address] [facility] muna 1-20 Units by Luhanh (VITAMIN 18:10: mouth Medical D3) 125 mcg 53 daily. Center (5,000 unit) tablet epoetin Yes [id number] Inject [facility] henry 1-20 10,000 [facility] (EPOGEN,PRO 18:10: Units Medic al CRIT) 53 subcutaneo Center 10,000 usly 3 unit/mL (three) injection times a week at bedtime MON/WED/FR I. HYDROcodone Yes 1{tbl} Take [address] -acetaminop 1-20 tablet by Raissa dunaway (NORCO 18:10: mouth Medica l 7.5-325) 53 every 4 Center 7.5-325 mg (four) per tablet hours as needed for Pain (pain level 8-10). ALPRAZolam Yes .25mg Take 0.[address] (XANAX) 1-20 mg by [facility] 0.25 MG 18:10: mouth 2 Medical tablet 53 (two) Center times daily as needed for Anxiety. cyclobenzap Yes 10mg Take [address] rine 1-20 by mouth 2 [facility] (FLEXERIL) 18:10: (two) Medica l 10 MG 53 times Center tablet daily as needed for Muscle spasms. famotidine Yes 40mg QD Take [address] (PEPCID) 40 1-20 by mouth Luke s MG tablet 18:10: nightly. Medi carlos 53 Center mirtazapine Yes 15mg QD Take [address] (REMERON) 1-20 by mouth [facility] 15 MG 18:10: nightly. Medical tablet 53 Center NIFEdipine 2023- Yes 90mg QD Take [address] (PROCARDIA- 1-20 -20 tablet (90 L ukes XL) 90 MG 00:00: 23:59 mg total) Me dical (OSM) 24 hr 00 :00 by mouth Cent er tablet daily. predniSONE 2022- Yes 40mg QD Take [address] (DELTASONE) 1-20 02-03 tablets Luke s 20 MG 00:00: 23:59 (40 mg Medical tablet 00 :00 total) by Center mouth daily for 14 days. predniSONE 2022- No 40mg QD Take [address] (DELTASONE) 1-20 -19 tablets Luke s 20 MG 00:00: 00:00 (40 mg Medical tablet 00 :00 total) by Center mouth daily for 14 days. NIFEdipine 2022- No 90mg QD Take [address] (PROCARDIA- 1-20 -19 tablet (90 L ukes XL) 90 MG 00:00: 00:00 mg total) Me dical (OSM) 24 hr 00 :00 by mouth Cent er tablet daily. metoprolol 2022- No 50mg Q.5D Take [address] tartrate 09-10- by mouth 2 Luke s (LOPRESSOR) 14:08: 00:00 (two) Medi carlos 50 MG 09 :00 times Center tablet daily. losartan 2022- No 25mg QD Take [address] (COZAAR) 25 09-10 by mouth Raissa es MG tablet 14:08: 00:00 daily. Medic al 09 :00 Edgar predniSONE 2022- No 10mg QD Take [address] (DELTASONE) 09-10 by mouth Raissa es 10 MG 14:08: 00:00 daily. Medical tablet 09 :00 Edgar HYDROmorpho 2022- No .5mg Inject 0.[address] ne 09-10 mg [facility] (Dilaudid, 14:08: 00:00 intravenou Medical ,) 0.5 09 :00 sly every Center mg/0.5 mL 4 (four) Syrg hours as needed (pain level5-7). calcium 2023- Yes 500mg Q.5D Take [address] carbonate 09-10 tablet [facility] (OS-CARLOS) 00:00: 23:59 (500 mg Medic al 500 mg 00 :00 total) by Center tablet mouth 2 (two) times daily. carvediloL 2023- Yes 25mg Q.5D Take [address] (COREG) 25 09-10 tablet (25 Madeleine kes MG tablet 00:00: 23:59 mg total) Me dical 00 :00 by mouth 2 Center (two) times daily. cloNIDine 2023- Yes .1mg Q.5D Take 1 [facility] HCL 09-10 tablet [facility] (CATAPRES) 00:00: 23:59 (0.1 mg Med ical 0.1 MG 00 :00 total) by Center tablet mouth 2 (two) times daily. terazosin 2023- Yes 2mg Q.5D Take 1 [facility] (HYTRIN) 2 09-10 capsule (2 Madeleine kes MG capsule 00:00: 23:59 mg total) M edical 00 :00 by mouth 2 Center (two) times daily. calcium 2022- No 500mg Q.5D Take [address] carbonate 09-10 tablet [facility] (OS-CARLOS) 00:00: 00:00 (500 mg Medic al 500 mg 00 :00 total) by Center tablet mouth 2 (two) times daily. carvediloL 2022- No 25mg Q.5D Take [address] (COREG) 25 09-10 tablet (25 Madeleine kes MG tablet 00:00: 00:00 mg total) Me dical 00 :00 by mouth 2 Center (two) times daily. cloNIDine 2022- No .1mg Q.5D Take 1 [facility] HCL 09-10 tablet [facility] (CATAPRES) 00:00: 00:00 (0.1 mg Med ical 0.1 MG 00 :00 total) by Center tablet mouth 2 (two) times daily. terazosin 2022- No 2mg Q.5D Take 1 [facility] t (HYTRIN) 2 09-10 capsule (2 Madeleine kes MG capsule 00:00: 00:00 mg total) M edical 00 :00 by mouth 2 Center (two) times daily. famotidine 2021-08 No 20mg 20 mg, Univ ers (PEPCID 06-14 Slow IV ity of (PF)) 02:30: 01:27 Push, [place] injection 00 :00 ONCE, 1 Medical 20 mg dose, On Branch 06/13/22 at 2130, Routine dicyclomine 2021-08 No 20mg 20 mg, Uni vers (BENTYL) 006-14 Intramuscu ity of injection 02:15: 02:15 lar, ONCE, [place] 20 mg 00 :00 1 dose, On Medical Sat Branch 06/13/22 at 2115, Routine proMETHazin 2021-08 No 12.5mg 12.5 mg, Univers e 006-14 IV ity of (PHENERGAN) 02:00: 02:13 Piggyback, [place] 12.5 mg in 00 :00 ONCE, 1 Medica l NaCl 0.9% dose, On Branch (NS) 50 mL Sat IV 06/13/22 piggyback at 2100, CAPRICE NaCl 0.9% 2021-08 No 1000mL at 999 Uni vers (NS) bolus 0- 10-23 mL/hr, ity of infusion 01:15: 03:21 1,000 mL, [place] as 1,000 mL 00 :00 IV Medical Infusion, Branch ONCE, 1 dose, On 06/13/22 at 2015, CAPRICE metoclopram 2021-08- No 10mg 10 mg, Uni vers nicole HCl 0-23 10-23 Slow IV ity of (REGLAN) 00:30: 01:02 Push, [place] injection 00 :00 ONCE, 1 Medical 10 mg dose, On Branch 06/13/22 at 1930, CAPRICE ondansetron 2021-08 Yes [id number] 4mg Take 1 Univers 4 mg 0-22 tablet by ity of disintegrat 00:00: mouth [place] ing tablet 00 every 8 Medica l (eight) Branch hours as needed for Nausea and Vomiting (N/V). dicyclomine 2021-08 Yes [id number] 20mg Take 1 Univers 20 mg 0-22 tablet by ity of tablet 00:00: mouth 4 [place] 00 (four) Medical times Branch daily. FENTanyl PF 2021-08 No 50ug 50 mcg, Un yasmani (SUBLIMAZE 0-18 10-17 Slow IV ity o f (PF)) 00:30: 23:49 Push, [place] injection 00 :00 ONCE, 1 Medical 50 mcg dose, On Branch 06/08/22 at 1930, Routine FENTanyl PF 2021-08 No 50ug 50 mcg, Un yasmani (SUBLIMAZE 0-17 10-17 Slow IV ity o f (PF)) 22:30: 21:53 Push, [place] injection 00 :00 ONCE, 1 Medical 50 mcg dose, On Branch 06/08/22 at 1730, Routine NaCl 0.9% 2021-08 No 500mL at 999 Univ ers (NS) bolus 0-17 10-18 mL/hr, 500 it y of infusion 21:45: 00:19 mL, IV [place] 500 mL 00 :00 Infusion, Medical ONCE, 1 Branch dose, On 06/08/22 at 1645, STAT proMETHazin 2021-08 No 25mg 25 mg, IV Univers e 0-17 10-17 Piggyback, ity of (PHENERGAN) 21:15: 21:27 ONCE, 1 [place] 25 mg in 00 :00 dose, On Medical NaCl 0.9% Mon Branch (NS) 50 mL 06/08/22 IV at 1615, piggyback CAPRICE proMETHazin 2021-08 Yes [id number] 25mg Take 1 Univers e 25 mg 0-17 tablet by ity of tablet 00:00: mouth [place] 00 every 6 Medical (six) Branch hours as needed for Nausea and Vomiting (N/V). proMETHazin 2021-08 Yes [id number] 25mg Take 1 Univers e 25 mg 0-17 tablet by ity of tablet 00:00: mouth [place] 00 every 6 Medical (six) Branch hours as needed for Nausea and Vomiting (N/V). amLODIPine 2022- No 10mg QD Take [address] [facility] [address] (NORVASC) 8-10 04-19 tablet (10 Raissa es 10 MG 00:00: 23:59 mg total) Medica l tablet 00 :00 by mouth Center daily. bumetanide 2022- No 2mg QD Take [address] [facility] [address] (BUMEX) 2 04-10- tablet (2 Luke s MG tablet 00:00: 23:59 mg total) Me dical 00 :00 by mouth Center daily. amLODIPine 2022- No 10mg QD Take [address] [facility] (NORVASC) 04-10- tablet (10 Raissa es 10 MG 00:00: 00:00 mg total) Medica l tablet 00 :00 by mouth Center daily. bumetanide 2022- No 2mg QD Take [address] [facility] (BUMEX) 2 -10 09- tablet (2 Luke s MG tablet 00:00: 00:00 mg total) Me dical 00 :00 by mouth Center daily. pantoprazol Yes 40mg Q.5D Inject 40 C [...] MG 25 times Center tablet daily. losartan 0 Yes 25mg QD Take [address] (COZAAR) 25 8-18 by mouth Luke s MG tablet 15:17: daily. Medica l 25 Center epoetin Yes [id number] Inject [facility] 8-18 10,000 [facility] [...] (four) Syrg hours as needed (pain level5-7). HYDROcodone Yes 1{tbl} Take [address] -acetaminop 8-18 tablet by Raissa dunaway (NORCO 15:17: mouth Medica l 7.5-325) 25 every 4 Center 7.5-325 mg (four) per tablet hours as needed for Pain (pain level 8-10). ALPRAZolam Yes .25mg Take 0.[address] (XANAX) 8-18 mg by [facility]ukes 0.25 MG 15:17: mouth 2 Medical tablet 25 (two) Center times daily as needed for Anxiety. cyclobenzap 0 Yes 10mg Take [address] rine 8-18 by mouth 2 [facility] (FLEXERIL) 15:17: (two) Medica l 10 MG 25 times Center tablet daily as needed for Muscle spasms. famotidine 0 Yes 40mg QD Take [address] (PEPCID) 40 8-18 by mouth Luke s MG tablet 15:17: nightly. Medi carlos 25 Center mirtazapine 0 Yes 15mg QD Take [address] (REMERON) 8-18 by mouth [facility]ukes 15 MG 15:17: nightly. Medical tablet 25 Center hydralazine 2021- No 10mg Inject [address] HCl 8-18 08-18 mg as [facility] (HYDRALAZIN 12:54: 00:00 directed M edical E INJ) 48 :00 every 6 Center (six) hours as needed (prn >160). meropenem 2021-0 2021- No 500mg Q24H Inject [address] (MERREM) 8-18 08-18 mg [facility] MBP 1 gm in 12:54: 00:00 intravenou Medical 100 mL NS 48 :00 sly daily. Cent er sevelamer 2021-2021- No 800mg Take [address] (RENVELA) 8-18 08-18 mg by [facility] 800 mg 12:54: 00:00 mouth 3 Medical tablet 48 :00 (three) Center times daily with meals. fluconazole 2021- No 400mg Inject [address] (DIFLUCAN) 8-18 08-18 mg [facility]ukes 400 mg/200 12:54: 00:00 intravenou Medical mL IVPB 48 :00 sly IV Center every each dialysis . hydralazine 2021- No 10mg Inject [address] HCl 8-18 08-18 mg as [facility] (HYDRALAZIN 12:54: 00:00 directed M edical E INJ) 48 :00 every 6 Center (six) hours as needed (prn >160). meropenem 2021-0 2021- No 500mg Q24H Inject [address] (MERREM) 8-18 08-18 mg [facility] MBP 1 gm in 12:54: 00:00 intravenou Medical 100 mL NS 48 :00 sly daily. Cent er sevelamer 2021-2021- No 800mg Take [address] (RENVELA) 8-18 08-18 mg by [facility] 800 mg 12:54: 00:00 mouth 3 Medical tablet 48 :00 (three) Center times daily with meals. fluconazole 2021-0 2021- No 400mg Inject [address] (DIFLUCAN) 8-18 08-18 mg [facility] 400 mg/200 12:54: 00:00 intravenou Medical mL IVPB 48 :00 sly IV Center every each dialysis . polyethylen 2021-2021- No 17g QD Take [address] e glycol 8-18 - by mouth [facility] (GLYCOLAX) 00:00: 23:59 daily for M edical 17 gram 00 :00 3 days. Center packet polyethylen 2021- No 17g QD Take [address] [facility] e glycol 8-18 - by mouth [facility] (GLYCOLAX) 00:00: 23:59 daily for M edical 17 gram 00 :00 3 days. Center packet Cephalexin Yes 500 mg = 1 M emoria 500 MG Oral 8-20 cap, PO, l Capsule 16:47: TID, X 10 Glenna nn [Keflex] 00 day, # 30 cap, 0 Refill(s), Pharmacy: [facility], 160.02, cm, 04/05/21 0:22:00 CDT, Height, 111.5, kg, 04/05/21 0:22:00 CDT, Weight Metolazone Yes 5 mg = 1 Mem oria 5 MG Oral 8-20 tab, PO, l Tablet 16:04: Daily, # [place] 00 30 tab, 0 Refill(s), Pharmacy: [facility], 160.02, cm, 04/05/21 0:22:00 CDT, Height, 111.5, kg, 04/05/21 0:22:00 CDT, Weight Furosemide Yes 40 mg = 1 Me moria 40 MG Oral 8-20 tab, PO, l Tablet 16:03: BID, # 60 Matthieu n [Lasix] 00 tab, 0 Refill(s), Pharmacy: [facility], 160.02, cm, 04/05/21 0:22:00 CDT, Height, 111.5, kg, 04/05/21 0:22:00 CDT, Weight predniSONE Yes 60 mg = 3 Me moria 20 mg oral 8-20 tab, PO, l tablet 16:00: Daily, X [place] 00 14 day, # 42 tab, 0 Refill(s), Pharmacy: [facility], 160.02, cm, 04/05/21 0:22:00 CDT, Height, 111.5, kg, 04/05/21 0:22:00 CDT, Weight ferric No 200 mg, Memoria oxide, 8-19 Route: l saccharated 14:00: IVPB, Drug form: INJ, Daily, Dosing Weight 111.5, kg, Start date: 04/10/21 9:00:00 CDT, Duration: 3 doses or times, Stop date: 04/12/21 9:00:00 CDT Ferrlecit No 125 mg, 10 Me moria 8-19 mL, Route: l 14:00: IVPB, Drug form: INJ, Daily, Start date: 04/10/21 9:00:00 CDT, Duration: 3 doses or times, Stop date: 04/12/21 9:00:00 CDT, 0 potassium No Notes: Memori a chloride 20 8-18 (Same as: l mEq oral 22:00: K-Dur 20) Herm maninder tablet, 00 "Do Not extended Crush" release Give with (KCL) food and full glass of water For patients unable to swallow tablet, dissolve in one half glass of water. Allow about 2 minutes for the tablets to disintegra te. Stir before giving to prepare slurry and administer . Please exclude Patient s with feeding tube less than 14 [place] (Dobhoff, J-tube etc) and pediatric and patients. Prednisone No Notes: Memor ia 8-18 Take with l 14:00: food. [place] 00 Metolazone No Notes: Memor ia 5 MG Oral 8-18 (Same as: l Tablet 14:00: Zaroxolyn) Glenna nn 00 potassium No Notes: Memori a chloride 20 8-17 (Same as: l mEq oral 17:29: K-Dur 20) Herm maninder tablet, 00 "Do Not extended Crush" release Give with (KCL) food and full glass of water For patients unable to swallow tablet, dissolve in one half glass of water. Allow about 2 minutes for the tablets to disintegra te. Stir before giving to prepare slurry and administer . Please exclude Patient s with feeding tube less than 14 [place] (Dobhoff, J-tube etc) and pediatric and patients. Acetaminoph No Notes: Kwasi zack en 325 MG / 8-16 (Same as: l Hydrocodone 18:17: [place] Glenna nn Bitartrate 00 325/5) Do 5 MG Oral not exceed Tablet 4gm/day of [[place] acetaminop 5/325] hen. Potassium No Notes: Memori a Chloride 16 (Same as: l 15:43: K-Dur 20) "Do Not Crush" Give with food and full glass of water For patients unable to swallow tablet, dissolve in one half glass of water. Allow about 2 minutes for the tablets to disintegra te. Stir before giving to prepare slurry and administer . Please exclude Patient s with feeding tube less than 14 [place] (Dobhoff, J-tube etc) and pediatric and patients. Lasix No Notes: Memoria 04-07 (Same as: l 14:00: Lasix) MEDICATION WASTE Product Size: 40 mg Product Wasted: ___ mg Calcium No Notes: Memoria Gluconate 04-07 WASTE: F/P l 03:16: - Sink; E - Zero Carbon Food Trash Bin tramadol No Notes: Not Mem oria hydrochlori 04-06 to exceed l de 50 MG 20:13: 400mg/day. Her lawson Oral Tablet 00 (Same As: Ultram) Aluminum No Notes: Memoria Hydroxide / 04-06 (aluminum l Magnesium 18:09: hydroxide- He Hydroxide / 00 magnesium Simethicone hyd-simeth icone 200-200-20 mg/5ml 30 ml ud BO) Famotidine No Notes: Memor ia -15 (Same as: l 18:09: Pepcid) sevelamer No Notes: Memori a 8-15 Same as: l 17:00: Renvela FUROSemide No Notes: Memor ia additive -15 (Same as: l 100 mg [10 15:42: Lasix) H ermann mg/hr] + 00 MEDICATION Sodium WASTE Chloride Product 0.9% IV 90 Size: 100 mL mg Product Wasted: ___ mg Lasix No Notes: Memoria 8-15 (Same as: l 15:42: Lasix) [place] 00 Potassium No Notes: Memori a Chloride 8-15 (Same as: l 13:38: K-Dur 20) [place] "Do Not Crush" Give with food and full glass of water For patients unable to swallow tablet, dissolve in one half glass of water. Allow about 2 minutes for the tablets to disintegra te. Stir before giving to prepare slurry and administer . Please exclude Patient s with feeding tube less than 14 [place] (Dobhoff, J-tube etc) and pediatric and patients. Oxycodone No Notes: Memori a Hydrochlori -15 (Same as: l de 5 MG 00:35: Roxicodone Herm maninder Oral Tablet 00 ) Cellcept No Notes: Memoria 8-14 Hazardous l 13:00: Drug Group [place] 2:Non-anti neoplastic Hazardous Drug -- Refer to safe handling procedure PPE Matrix (Do Not Crush) SEPARATE ANTACIDS from Cellcept by 2 hrs. (Same As: CellCept) heparin No Notes: Memoria 8-14 porcine l 13:00: heparin [place] 00 Hydrocortis No Notes: Kwasi zack one -14 (Same as: l 11:00: Solu-MARIAN [place] 00 F) sodium No Notes: Memoria bicarbonate 14 (sodium l 8.4% 06:11: bicarb [place] additive 00 8.4% (1 150 mEq + mEq/ml) 50 sterile ml VL) water diluent IV 1,000 mL cefepime No Notes: Memoria 8-14 (Same As: l 06:08: Maxipime) [place] MEDICATION WASTE Product Size: 1000 mg Product Wasted: ___ mg carvedilol Yes 25 mg = 1 Me moria 25 mg oral 8-14 tab, PO, l tablet 05:15: BID, # 180 Glenna nn 00 tab, 0 Refill(s) ferrous Yes 325 mg = 1 Kwasi zack sulfate 325 8-14 tab, PO, l MG Oral 05:11: TID, # 270 Herm maninder Tablet 00 tab, 0 Refill(s) Vitamin B12 No PO, Daily, Memoria 8-14 0 l 05:11: Refill(s) [place] 00 Ceftriaxone No Notes: Kwasi zack 8-14 (Same As: l 03:00: Rocephin). MEDICATION WASTE Product Size: 1000 mg Product Wasted: ___ mg Azithromyci No Notes: Kwasi zack n -14 (Same As: l 02:00: Zithromax [place] IV) Mannitol No Notes: Memoria 250 MG/ML 14 (Same as: l Injectable 01:02: Osmitrol) He rmann Solution Infuse through 5 micron or smaller filter WASTE: F/P - Sink; E - Municipal Trash Bin methylPREDN No Notes: Kwasi zack ISolone 04-04 (Same l SODium 14:00: as:Solu-ME Glenna nn SUCCinate 00 DROL, A-Methapre d) Saline No Notes: Memoria Flush 0.9% 04-04 Same as: l 14:00: BD Posiflush Sterile heparin No Notes: Memoria 8-13 porcine l 14:00: heparin Protonix No Notes: For Mem oria -13 IV push l 12:30: reconstitu te with 10 ml 0.9% sodium chloride and push over 2 minutes. (Same as: Protonix) Thyroxine No Notes: Memori a 8-13 Take 1 l 11:30: hour before or 2 hours after meal; Enteral feeds may interefere with the absorption of this medication .(Same as:Levothr oid, Synthroid) Dextrose No 12.5 gm, Memor ia 50% Syringe 04-04 25 mL, l (D50W) 09:19: Route: IVP, Drug Form: INJ, Dosing Weight 109.091, kg, PRN, PRN Blood Glucose Results, Start date: 04/04/21 4:19:00 CDT, Duration: 30 day, Stop date: 05/04/21 4:18:00 CDT, 0 Glucagon No 1 mg, Memoria 04-04 Route: IM, l 09:19: Drug form: PDR/INJ, PRN, Dosing Weight 109.091, kg, PRN Blood Glucose Results, Start date: 04/04/21 4:19:00 CDT, Duration: 30 day, Stop date: 05/04/21 4:18:00 CDT, 0 Insulin No Notes: Memoria Lispro 04-04 (Same as: l 09:19: Humalog) [place] 00 Roll in palms of hands gently; Do not shake vigorously . WASTE: F/P - Black; E - Municipal Trash Bin Stable for 28 days at room temperatur e. Expires in days from ____Date Calcium No Notes: Memoria Gluconate 04-04 WASTE: F/P l 09:13: - Sink; E [place] 00 - Municipal Trash Bin Vancomycin No 2000 mg: Me moria 04-04 infuse l 08:00: over 2.5 [place] 00 hours For adult patients only: Round to nearest 250 mg per Medical Staff approval MEDICATION WASTE Product Size: 1000 mg Product Wasted: ___ mg Norepinephr No Notes: Kwasi zack ine 04-04 Same as: l 07:50: Levophed. [place] Administer by either central venous catheter or peripheral ly-inserte d central catheter (PICC) line. Nystatin No Notes: Memoria 100 UNT/MG 04-04 (Same l Topical 07:02: as:Mycosta Herm maninder Powder 00 tin, Nilstat) For external use only. Saline No Notes: [facility] Flush 0.9% 04-04 Same as: l 07:02: BD [place] 00 Posiflush Sterile meropenem No Notes: Memori a 04-04 Same as l 07:00: Merrem [place] 00 Vancomycin No Notes: Memor ia 04-04 Vancomycin l 06:47: Pharmacy [place] 37 Dosing Protocol PHARMAC Y USE ONLY Note: This is not a medication order. This is a consultati on order. Midodrine No Notes: Memori a 04-04 (Same l 06:27: as:Proamat [place] 00 ine) Hydrocortis No Notes: Kwasi zack one 04-04 (Same as: l 05:00: Solu-MARIAN 00 F) sulfamethox No Notes: D5W Memoria [...] ia 04-04 Take with l 03:18: food. Lasix No Notes: Memoria 04-04 (Same as: l 03:16: Lasix) MEDICATION WASTE Product Size: 40 mg Product Wasted: ___ mg Sodium No 1,000 mL, Memori a Chloride 04-04 Rate: 100 l 0.9% IV 02:56: ml/hr, 1,000 mL 00 Infuse over: 10 hr, Route: IV, Dosing Weight 109.091 kg, Total Volume: 1,000, Start date: 04/03/21 21:56:00 CDT, Duration: 30 day, Stop date: 05/03/21 21:55:00 CDT, BSA: 2.26 m2, 0 Acetaminoph No Notes: Do M emoria en 04-04 not exceed l 02:43: 4 gm/day. (Same as: Tylenol) Ondansetron No Notes: Kwasi zack - (Same as: l 02:43: Zofran) MEDICATION WASTE [...] n 8-13 (Same As: l 02:02: Zithromax IV) Hydrochloro Yes TAKE 1 Kwasi zack thiazide 25 8-13 TABLET BY l MG / 01:23: MOUTH ONCE [place] Olmesartan DAILY medoxomil 40 MG Oral Tablet amLODIPine Yes TAKE 1 Memor ia 5 mg oral 8-13 TABLET BY l tablet 01:23: MOUTH ONCE [place] nn 00 DAILY FOR 90 DAYS predniSONE Yes 5 mg = 1 Mem oria 5 mg oral 8-13 tab, PO, l tablet 01:23: Daily, TAKE 3 TABLETS BY MOUTH ONCE DAILY FOR SYSTEMIC LUPUS ERYTHEMATO BO Sulfamethox Yes TAKE 1 Kwasi zack azole 800 8-13 TABLET BY l MG / 01:23: MOUTH [place] Trimethopri 00 TWICE m 160 MG DAILY Oral Tablet Tylenol No Notes: Do Memor ia 8-12 not exceed l 23:47: 4 gm/day. (Same as: Tylenol) Saline No Notes: Memoria Flush 0.9% 04-03 Same as: l 23:40: BD Posiflush Sterile predniSONE Yes 5mg Take 5 mg Un yasmani 5 mg tablet 2-24 by mouth ity of 18:51: daily. [place] [address] Medical Branch mycophenola 2020-0 Yes 500mg Take 500 U nivers te mofetil 2-24 mg by ity of (CELLCEPT) 18:51: mouth [place] 16 (two) Medical tablet times Branch daily. carvedilol 2019-0 Yes 12.5mg Take 12.5 Univers 12.5 mg 2-24 mg by ity of tablet 18:51: mouth 2 [place] 16 (two) Medical times Branch daily with meals. predniSONE 2019-0 Yes 5mg Take 5 mg Un yasmani 5 mg tablet 2-24 by mouth ity of 18:51: daily. [address] Branch mycophenola 2020-0 Yes 500mg Take 500 U nivers te mofetil 2-24 mg by ity of (CELLCEPT) 18:51: mouth [place] 500 mg 16 (two) Medical tablet times Branch daily. carvedilol 2020-0 Yes 12.5mg Take 12.5 Univers 12.5 mg 2-24 mg by ity of tablet 18:51: mouth 2 [place] [address] (two) Medical times Branch daily with meals. predniSONE 2020-0 Yes 5mg Take 5 mg Un yasmani 5 mg tablet 2-24 by mouth ity of 18:51: daily. [address] mycophenola 2020-0 Yes 500mg Take 500 U nivers te mofetil 2-24 mg by ity of (CELLCEPT) 18:51: mouth [place] mg 16 (two) Medical tablet times Branch daily. carvedilol 2020-0 Yes 12.5mg Take 12.5 Univers 12.5 mg 2-24 mg by ity of tablet 18:51: mouth 2 [place] [address] (two) Medical times Branch daily with meals. predniSONE 2020-0 Yes 5mg Take 5 mg Un yasmani 5 mg tablet 2-24 by mouth ity of 18:51: daily. [address] mycophenola 2020-0 Yes 500mg Take 500 U nivers te mofetil 2-24 mg by ity of (CELLCEPT) 18:51: mouth [place] 500 mg 16 (two) Medical tablet times Branch daily. carvedilol 2020-0 Yes 12.5mg Take 12.5 Univers 12.5 mg 2-24 mg by ity of tablet 18:51: mouth 2 [place] [address] (two) Medical times Branch daily with meals. predniSONE 2020-0 Yes 5mg Take 5 mg Un yasmani 5 mg tablet 2-24 by mouth ity of 18:51: daily. [address] mycophenola 2020-0 Yes 500mg Take 500 U nivers te mofetil 2-24 mg by ity of (CELLCEPT) 18:51: mouth [place] 500 mg 16 (two) Medical tablet times Branch daily. carvedilol 2020-0 Yes 12.5mg Take 12.5 Univers 12.5 mg 2-24 mg by ity of tablet 18:51: mouth 2 [place] 16 (two) Medical times Branch daily with [...] by ity of tablet 18:51: mouth 2 [place] 16 (two) Medical times Branch daily with meals. hydrOXYzine 2020-0 Yes [id number] 25mg Take 1 Univers 25 mg 2-24 tablet by ity of tablet 00:00: mouth [place] 00 every 6 Medical (six) Branch hours as needed for Itching. hydrOXYzine 2020-0 Yes [id number] 25mg Take 1 Univers 25 mg 2-24 tablet by ity of tablet 00:00: mouth [place] 00 every 6 Medical (six) Branch hours as needed for Itching. hydrOXYzine 2020-0 Yes [id number] 25mg Take 1 Univers 25 mg 2-24 tablet by ity of tablet 00:00: mouth [place] 00 every 6 Medical (six) Branch hours as needed for Itching. hydrOXYzine 2020-0 Yes [id number] 25mg Take 1 Univers 25 mg 2-24 tablet by ity of tablet 00:00: mouth [place] 00 every 6 Medical (six) Branch hours as needed for Itching. hydrOXYzine 2020-0 Yes [id number] 25mg Take 1 Univers 25 mg 2-24 tablet by ity of tablet 00:00: mouth [place] 00 every 6 Medical (six) Branch hours as needed for Itching. hydrOXYzine 2020-0 Yes [id number] 25mg Take 1 Univers 25 mg 2-24 [...] Name Observation Time Observation Value Comments Source WEIGHT 2022-09-11 13:45:00 90.2 kg WEIGHT 2022-09-09 12:00:00 90.2 kg WEIGHT 2022-09-07 08:30:00 90.2 kg WEIGHT 2022-09-04 11:15:00 90.2 kg WEIGHT 2022-09-02 15:00:00 90.2 kg WEIGHT 2022-09-02 10:45:00 93.2 kg HEIGHT 2022-09-01 20:00:00 160 cm WEIGHT 2022-09-01 20:00:00 93.2 kg WEIGHT 2022-09-01 05:23:00 93.2 kg WEIGHT 2022-08-31 19:55:00 85.2 kg WEIGHT 2022-08-31 17:55:00 86.2 kg WEIGHT 2022-08-31 06:00:00 86.2 kg WEIGHT 2022-08-28 06:00:00 87.68 kg WEIGHT 2022-08-27 14:21:00 87.9 kg WEIGHT 2022-08-26 06:00:00 81.647 kg WEIGHT 2022-08-25 06:00:00 82.283 kg WEIGHT 2022-08-24 06:00:00 82.2 kg WEIGHT 2022-08-20 06:00:00 73.483 kg WEIGHT 2022-08-18 06:00:00 70.171 kg WEIGHT 2022-08-17 05:51:00 69.4 kg WEIGHT 2022-08-16 06:00:00 69.4 kg WEIGHT 2022-09-11 13:45:00 90.2 kg WEIGHT 2022-09-09 12:00:00 90.2 kg WEIGHT 2022-09-07 08:30:00 90.2 kg WEIGHT 2022-09-04 11:15:00 90.2 kg WEIGHT 2022-09-02 15:00:00 90.2 kg WEIGHT 2022-09-02 10:45:00 93.2 kg HEIGHT 2022-09-01 20:00:00 160 cm WEIGHT 2022-09-01 20:00:00 93.2 kg WEIGHT 2022-09-01 05:23:00 93.2 kg WEIGHT 2022-08-31 19:55:00 85.2 kg WEIGHT 2022-08-31 17:55:00 86.2 kg WEIGHT 2022-08-31 06:00:00 86.2 kg WEIGHT 2022-08-28 06:00:00 87.68 kg WEIGHT 2022-08-27 14:21:00 87.9 kg WEIGHT 2022-08-26 06:00:00 81.647 kg WEIGHT 2022-08-25 06:00:00 82.283 kg WEIGHT 2022-08-24 06:00:00 82.2 kg WEIGHT 2022-08-20 06:00:00 73.483 kg WEIGHT 2022-08-18 06:00:00 70.171 kg WEIGHT 2022-08-17 05:51:00 69.4 kg WEIGHT 2022-08-16 06:00:00 69.4 kg WEIGHT 2022-09-11 13:45:00 90.2 kg WEIGHT 2022-09-09 12:00:00 90.2 kg WEIGHT 2022-09-07 08:30:00 90.2 kg WEIGHT 2022-09-04 11:15:00 90.2 kg WEIGHT 2022-09-02 15:00:00 90.2 kg WEIGHT 2022-09-02 10:45:00 93.2 kg HEIGHT 2022-09-01 20:00:00 160 cm WEIGHT 2022-09-01 20:00:00 93.2 kg WEIGHT 2022-09-01 05:23:00 93.2 kg WEIGHT 2022-08-31 19:55:00 85.2 kg WEIGHT 2022-08-31 17:55:00 86.2 kg WEIGHT 2022-08-31 06:00:00 86.2 kg WEIGHT 2022-08-28 06:00:00 87.68 kg WEIGHT 2022-08-27 14:21:00 87.9 kg WEIGHT 2022-08-26 06:00:00 81.647 kg WEIGHT 2022-08-25 06:00:00 82.283 kg WEIGHT 2022-08-24 06:00:00 82.2 kg WEIGHT 2022-08-20 06:00:00 73.483 kg WEIGHT 2022-08-18 06:00:00 70.171 kg WEIGHT 2022-08-17 05:51:00 69.4 kg WEIGHT 2022-08-16 06:00:00 69.4 kg Systolic blood 2022-06-14 02:58:00 134 mm[Hg] Univer sity of pressure [facility] Diastolic blood 2022-06-14 02:58:00 93 mm[Hg] Unive rsity of [facility] Heart rate 2022-06-14 02:58:00 101 /min Universi ty [facility] Respiratory rate 2022-06-14 02:58:00 22 /[facility] Oxygen saturation in 2022-06-14 02:58:00 100 /min [facility] Arterial blood by [facility] Pulse oximetry Branch Body temperature 2022-06-14 00:23:00 37.06 Netta Univ ersity of [facility] Systolic blood 2022-06-08 23:30:00 146 mm[Hg] Univer sity of pressure [facility] Diastolic blood 2022-06-08 23:30:00 106 mm[Hg] Unive rsity of pressure [facility] Heart rate 2022-06-08 23:30:00 90 /min Universi [facility] Respiratory rate 2022-06-08 23:30:00 24 /min [facility] [place] [facility] Oxygen saturation in 2022-06-08 23:30:00 99 /min [facility] Arterial blood by [facility] Pulse oximetry Branch Body temperature 2022-06-08 19:17:00 37 Netta [facility] Body height 2022-06-08 19:17:00 160 [facility] Body weight 2022-06-08 19:17:00 76.204 kg [facility] BMI 2022-06-08 19:17:00 29.76 kg/m2 [facility] HEIGHT 2022-04-04 11:57:00 160 cm WEIGHT 2022-04-03 18:30:00 93.6 kg HEIGHT 2022-04-04 11:57:00 160 cm WEIGHT 2022-04-03 18:30:00 93.6 kg HEIGHT 2022-04-04 11:57:00 160 cm WEIGHT 2022-04-03 18:30:00 93.6 kg Systolic blood 2022-09-11 13:45:00 137 mm[Hg] [facility] Diastolic blood 2022-09-11 13:45:00 87 mm[Hg] [facility] Heart rate 2022-09-11 13:45:00 85 /min [facility] Body temperature 2022-09-11 13:45:00 36.67 Netta [facility] Respiratory rate 2022-09-11 13:45:00 18 /min [facility] Body weight 2022-09-11 13:45:00 90.2 kg [facility] BMI 2022-09-11 13:45:00 35.23 kg/m2 [facility] Oxygen saturation in 2022-09-11 13:45:00 99 /min [facility] Arterial blood by Medical nter Pulse oximetry Body height 2022-09-01 20:00:00 160 cm [facility] Systolic blood 2022-04-09 11:57:00 115 mm[Hg] [facility] Diastolic blood 2022-04-09 11:57:00 68 mm[Hg] [facility] Heart rate 2022-04-09 11:57:00 85 /min [facility] Body temperature 2022-04-09 11:57:00 35.61 Netta [facility] Respiratory rate 2022-04-09 11:57:00 18 /min [facility] Oxygen saturation in 2022-04-09 11:57:00 94 /min [facility] Arterial blood by Medical Ce nter Pulse oximetry Body height 2022-04-06 12:19:00 160 cm [facility] Body weight 2022-04-06 12:19:00 93.6 kg [facility] BMI 2022-04-06 12:19:00 36.56 kg/m2 [facility] Temperature Oral (F) 2021-04-11 16:38:00 98.2 F [facility] [place] Heart Rate 2021-04-11 16:38:00 [facility] [place] Respitory Rate 2021-04-11 16:38:00 [facility]ori [facility] [place] Systolic (mm Hg) 2021-04-11 16:38:00 Kwasi rial [place] Diastolic (mm Hg) 2021-04-11 16:38:00 Mem orial [place] Temperature Oral (F) 2021-04-11 12:47:00 98.4 F [facility] [place] Heart Rate 2021-04-11 12:47:00 [facility] [place] Respitory Rate 2021-04-11 12:47:00 Memori al [place] Systolic (mm Hg) 2021-04-11 12:47:00 Kwasi rial [place] Diastolic (mm Hg) 2021-04-11 12:47:00 Mem orial [place] Temperature Oral (F) 2021-04-11 09:10:00 98.7 F [facility] [place] Heart Rate 2021-04-11 09:10:00 [facility] [place] Respitory Rate 2021-04-11 09:10:00 Memori al [place] Systolic (mm Hg) 2021-04-11 09:10:00 Kwasi rial [place] Diastolic (mm Hg) 2021-04-11 09:10:00 Mem orial [place] Height 2021-04-05 05:22:00 160.02 cm [facility] [place] Weight 2021-04-05 05:22:00 [facility] [place] BMI Calculated 2021-04-05 05:22:00 Memori [facility] [place] Respitory Rate 2021-04-05 02:38:00 Memori al [place] Systolic (mm Hg) 2021-04-05 02:38:00 Kwasi rial [place] Diastolic (mm Hg) 2021-04-05 02:38:00 Mem orial [place] Respitory Rate 2021-04-05 02:12:00 Memori al [place] Systolic (mm Hg) 2021-04-05 02:12:00 Kwasi rial [place] Diastolic (mm Hg) 2021-04-05 02:12:00 Mem orial [place] Respitory Rate 2021-04-05 01:17:00 Memori al [place] Systolic (mm Hg) 2021-04-05 01:17:00 Kwasi rial [place] Diastolic (mm Hg) 2021-04-05 01:17:00 Mem orial [place] Temperature Oral (F) 2021-04-05 00:30:00 98.0 F [facility] [place] Heart Rate 2021-04-04 23:14:00 [facility] [place] Heart Rate 2021-04-04 22:00:00 [facility] [place] Heart Rate 2021-04-04 21:00:00 [facility] [place] Temperature Oral (F) 2021-04-04 21:00:00 98.4 F [facility] [place] Temperature Oral (F) 2021-04-04 14:20:00 98.5 F [facility] [place] Height 2021-04-04 06:44:00 160.02 cm [facility] [place] Weight 2021-04-04 06:44:00 [facility] [place] Height 2021-04-04 03:05:00 160.02 cm [facility] [place] BMI Calculated 2021-04-04 03:05:00 Memori al [place] Weight 2021-04-04 03:05:00 [facility] [place] Height 2021-04-03 23:36:00 160.02 cm [facility] [place] BMI Calculated 2021-04-03 23:36:00 Memori al [place] Weight 2021-04-03 23:36:00 [facility] [place] Procedures Procedure Date / Time Performing Clinician Source Performed HEMODIALYSIS INPATIENT 2022-09-11 10:43:33 Armando Chandra [facility] CBC W/PLT COUNT & AUTO 2022-09-11 03:52:00 [facility] BASIC METABOLIC PANEL 2022-09-11 03:52:00 [facility] W/PLT COUNT & AUTO 2022-09-11 03:52:00 [facility] PREPARE RBC 2022-09-10 23:54:00 [facility] CBC W/PLT COUNT & AUTO 2022-09-10 04:15:00 [facility] DIFFERENTIAL [facility] CALCIUM, IONIZED 2022-09-10 04:15:00 [facility] COMPREHENSIVE METABOLIC 2022-09-10 04:15:00 [facility] PANEL Center MAGNESIUM 2022-09-10 04:15:00 [facility] PHOSPHORUS 2022-09-10 04:15:00 [facility] CBC W/PLT COUNT & AUTO 2022-09-10 04:15:00 [facility] XR CHEST 1 VIEW PORTABLE 2022-09-09 15:15:00 WilfridSuzette echols [facility] / BEDSIDE [facility] TRANSFUSE LEUKO-REDUCED 2022-09-09 12:30:00 Leroy [facility] RED BLOOD CELLS Center HEMODIALYSIS INPATIENT 2022-09-09 12:13:40 [facility] TYPE AND SCREEN, 2022-09-09 06:18:00 [facility] AUTOMATED Center CBC W/PLT COUNT & AUTO 2022-09-09 03:45:00 [facility] BASIC METABOLIC PANEL 2022-09-09 03:45:00 [facility] CBC W/PLT COUNT & AUTO 2022-09-09 03:45:00 [facility] POCT-GLUCOSE METER 2022-09-08 15:33:00 [facility] HE[facility]IS C ANTIBODY 2022-09-08 15:28:00 [facility] HEPATITIS B CORE 2022-09-08 15:28:00 [facility] TOTAL Center HEPATITIS B SURFACE 2022-09-08 15:28:00 [facility] W/[facility]T COUNT & AUTO 2022-09-08 09:57:00 [facility] BASIC METABOLIC PANEL 2022-09-08 09:57:00 [facility] CBC W/PLT COUNT & AUTO 2022-09-08 09:57:00 [facility] POCT-GLUCOSE METER 2022-09-08 07:35:00 [facility] POCT-GLUCOSE METER 2022-09-07 20:38:00 [facility] IR TUNNELED CATHETER 2022-09-07 16:50:00 [facility] INSERTION Edgar PROTHROMBIN TIME/INR 2022-09-07 15:05:00 [facility] HEMODIALYSIS INPATIENT 2022-09-07 12:22:44 [facility] COMPREHENSIVE METABOLIC 2022-09-07 08:45:00 [facility] PANEL Center MAGNESIUM 2022-09-07 08:45:00 [facility] PHOSPHORUS 2022-09-07 08:45:00 [facility] CBC W/PLT COUNT & AUTO 2022-09-07 03:28:00 [facility] CBC W/PLT COUNT & AUTO 2022-09-07 03:28:00 [facility] POCT-GLUCOSE METER 2022-09-06 20:00:00 [facility] Center POCT-GLUCOSE METER 2022-09-06 16:00:00 [facility] POCT-GLUCOSE METER 2022-09-06 11:03:00 [facility] POCT-GLUCOSE METER 2022-09-06 07:11:00 [facility] COMPREHENSIVE METABOLIC 2022-09-06 02:55:00 [facility] PANEL Center MAGNESIUM 2022-09-06 02:55:00 [facility] PHOSPHORUS 2022-09-06 02:55:00 [facility] CBC W/PLT COUNT & AUTO 2022-09-06 02:55:00 [facility] CALCIUM, IONIZED 2022-09-06 02:55:00 [facility] CBC W/PLT COUNT & AUTO 2022-09-06 02:55:00 Dilcia Leblanc [facility] POCT-GLUCOSE METER 2022-09-05 20:55:00 [facility] POCT-GLUCOSE METER 2022-09-05 17:36:00 [facility] SARS-COV2/RT-PCR ([facility] & 2022-09-05 17:24:00 [facility] Suzette [facility] REF LABS) [facility] POCT-GLUCOSE METER 2022-09-05 11:52:00 [facility] PREPARE RBC 2022-09-04 23:54:00 Justin Gasca [facility] POCT-GLUCOSE METER 2022-09-04 23:05:00 [facility] 2022-09-04 12:01:35 [facility] POCT-GLUCOSE METER 2022-09-04 07:50:00 [facility]ITIS B SURFACE 2022-09-04 04:08:00 [facility] W/[facility]T COUNT & AUTO 2022-09-04 04:08:00 [facility] DIFFERENTIAL [facility] Edgar CALCIUM, IONIZED 2022-09-04 04:08:00 [facility]HENSIVE METABOLIC 2022-09-04 04:08:00 [facility] PANEL Center MAGNESIUM 2022-09-04 04:08:00 [facility] PHOSPHORUS 2022-09-04 04:08:00 [facility] CBC W/PLT COUNT & AUTO 2022-09-04 04:08:00 [facility] DIFFERENTIAL Center POCT-GLUCOSE METER 2022-09-03 21:21:00 [facility] POCT-GLUCOSE METER 2022-09-03 21:02:00 [facility] CBC W/PLT COUNT & AUTO 2022-09-03 20:57:00 [facility] DIFFERENTIAL [facility] CBC W/PLT COUNT & AUTO 2022-09-03 20:57:00 [facility] DIFFERENTIAL [facility] POCT-GLUCOSE METER 2022-09-03 12:29:00 [facility] TRANSFUSE LEUKO-REDUCED 2022-09-03 11:29:00 Brittni [facility] RED BLOOD CELLS Center TYPE AND SCREEN, 2022-09-03 08:34:00 Brittni [facility] AUTOMATED Center POCT-GLUCOSE METER 2022-09-03 08:01:00 [facility] CBC W/PLT COUNT & AUTO 2022-09-03 05:07:00 Gadicherla, [facility] CALCIUM, IONIZED 2022-09-03 05:07:00 [facility] COMPREHENSIVE METABOLIC 2022-09-03 05:07:00 [facility] PANEL Center MAGNESIUM 2022-09-03 05:07:00 [facility] PHOSPHORUS 2022-09-03 05:07:00 [facility] CBC W/PLT COUNT & AUTO 2022-09-03 05:07:00 [facility] POCT-GLUCOSE METER 2022-09-02 21:03:00 [facility] POCT-GLUCOSE METER 2022-09-02 16:24:00 [facility] HEMODIALYSIS INPATIENT 2022-09-02 10:15:45 [facility] POCT-GLUCOSE METER 2022-09-02 07:58:00 [facility] PROTHROMBIN TIME/INR 2022-09-02 05:04:00 Corrina Pa [facility] CBC W/PLT COUNT & AUTO 2022-09-02 05:04:00 [facility] BASIC METABOLIC PANEL 2022-09-02 05:04:00 [facility] IRON, TIBC, % SAT. 2022-09-02 05:04:00 [facility] (WITHOUT FERRITIN) Center FERRITIN 2022-09-02 05:04:00 [facility] RETICULOCYTE COUNT 2022-09-02 05:04:00 [facility] CBC W/PLT COUNT & AUTO 2022-09-02 05:04:00 [facility] POCT-GLUCOSE METER 2022-09-02 04:59:00 Corrina Pa [facility] POCT-GLUCOSE METER 2022-09-01 23:34:00 [facility]IBODY 2022-09-01 22:08:00 [facility] 2022-09-01 18:34:09 [facility] POCT-GLUCOSE METER 2022-09-01 11:59:00 [facility] CBC W/PLT COUNT & AUTO 2022-09-01 05:12:00 Suzette Grullon [facility] DIFFERENTIAL [facility] CALCIUM, IONIZED 2022-09-01 05:12:00 [facility] COMPREHENSIVE METABOLIC 2022-09-01 05:12:00 [facility] PANEL Center MAGNESIUM 2022-09-01 05:12:00 Prateek [facility] PHOSPHORUS 2022-09-01 05:12:00 Prateek [facility] CBC W/PLT COUNT & AUTO 2022-09-01 05:12:00 Dilcia Leblanc [facility] POCT-GLUCOSE METER 2022-09-01 04:38:00 Thierno [facility] POCT-GLUCOSE METER 2022-08-31 23:00:00 Thierno [facility] HEMODIALYSIS INPATIENT 2022-08-31 18:40:05 Prateek [facility] POCT-GLUCOSE METER 2022-08-31 17:16:00 [facility]ha [facility] IR NON-TUNNELED DIALYSIS 2022-08-31 16:00:00 [facility] CATHETER (CENTRAL Center LINE/SHEREE) POCT-GLUCOSE METER 2022-08-31 12:28:00 [facility] ELECTROLYTES 2022-08-31 08:42:00 [facility] PROTHROMBIN TIME/INR 2022-08-31 08:42:00 [facility] POCT-GLUCOSE METER 2022-08-31 07:52:00 Corrina Pa [facility] CBC W/PLT COUNT & AUTO 2022-08-31 04:58:00 [facility]OL[facility] 2022-08-31 04:58[facility]00 [facility] & AUTO 2022-08-31 04:58:00 [facility] POCT-GLUCOSE METER 2022-08-30 22:31:00 [facility] 2022-08-30 18:18:00 [facility] COMPLEMENT COMPONENT C4 2022-08-30 18:13:00 [facility] POCT-GLUCOSE METER 2022-08-30 16:38:00 [facility] POCT-GLUCOSE METER 2022-08-30 12:39:00 [facility] ECG 12-LEAD 2022-08-30 11:55:37 [facility] POCT-GLUCOSE METER 2022-08-30 07:39:[address] [facility] CBC W/PLT COUNT & AUTO 2022-08-30 06:57:00 [facility] BASIC METABOLIC PANEL 2022-08-30 06:57:00 [facility] CBC W/PLT COUNT & AUTO 2022-08-30 06:57:00 [facility] (CELLAVISION MANUAL DIFF) 2022-08-30 06:57:00 Dilcia Leblanc [facility] POCT-GLUCOSE METER 2022-08-29 20:11:[address] [facility] MISCELLANEOUS LAB ORDER 2022-08-29 19:51:00 Helen [facility] POCT-GLUCOSE METER 2022-08-29 16:12:00 [facility] BLOOD CULTURE 2022-08-29 13:51:00 Kinga [facility] CBC W/PLT COUNT & AUTO 2022-08-29 13:45:00 [facility] BASIC METABOLIC PANEL 2022-08-29 13:45:00 [facility] B-TYPE NATRIURETIC FACTOR 2022-08-29 13:45:00 [facility] ([facility] CBC W/PLT COUNT & AUTO 2022-08-29 13:45:00 [facility] (CELLAVISION MANUAL DIFF) 2022-08-29 13:45:00 Deana [facility] BLOOD CULTURE 2022-08-29 13:43:00 Kinga [facility] POCT-GLUCOSE METER 2022-08-29 12:23:00 [facility] CT ABDOMEN/PELVIS WITHOUT 2022-08-29 11:16:00 [facility] IV CONTRAST Center POCT-GLUCOSE METER 2022-08-29 08:16:00 [facility] SARS-COV2/RT-PCR ([facility] & 2022-08-29 06:31:00 WilfridSuzette echols [facility] REF LABS) [facility] POCT-GLUCOSE METER 2022-08-28 21:30:00 [facility] POCT-GLUCOSE METER 2022-08-28 17:02:00 [facility] LACTIC ACID, VENOUS 2022-08-28 14:41:00 [facility] LIPASE 2022-08-28 14:41:00 [facility] BASIC METABOLIC PANEL 2022-08-28 14:41:00 [facility] CBC W/PLT COUNT & AUTO 2022-08-28 14:32:00 [facility] & AUTO 2022-08-28 14:32:00 [facility] (CELLAVISION MANUAL DIFF) 2022-08-28 14:32:00 Kinga [facility] XR ABDOMEN/KUB 1 VIEW 2022-08-28 12:27:00 [facility] POCT-GLUCOSE METER 2022-08-28 10:40:[address] [facility] POCT-GLUCOSE METER 2022-08-28 08:31:00 [facility] CBC W/PLT COUNT & AUTO 2022-08-28 05:53:00 [facility] BASIC METABOLIC PANEL 2022-08-28 05:53:00 [facility] HEMOGLOBIN A1C 2022-08-28 05:53:00 Helen [facility] CBC W/PLT COUNT & AUTO 2022-08-28 05:53:00 Dilcia Leblanc [facility] POCT-GLUCOSE METER 2022-08-27 19:33:[address] [facility] POCT-GLUCOSE METER 2022-08-27 17:12:[address] [facility] POCT-GLUCOSE METER 2022-08-27 12:30:00 [facility] POCT-GLUCOSE METER 2022-08-27 08:31:00 [facility] CBC W/PLT COUNT & AUTO 2022-08-27 04:59:00 [facility] BASIC METABOLIC PANEL 2022-08-27 04:59:00 [facility] CALCIUM, IONIZED 2022-08-27 04:59:00 Ali, [facility] ALBUMIN 2022-08-27 04:59:00 Kinga [facility] CBC W/PLT COUNT & AUTO 2022-08-27 04:59:00 [facility] (CELLAVISION MANUAL DIFF) 2022-08-27 04:59:00 Dilcia Leblanc [facility] POCT-GLUCOSE METER 2022-08-26 17:53:00 [facility] POCT-GLUCOSE METER 2022-08-26 12:10:[address] [facility] POCT-GLUCOSE METER 2022-08-26 08:27:[address] [facility] CBC W/PLT COUNT & AUTO 2022-08-26 04:56:00 [facility] DIFFERENTIAL [facility] BASIC METABOLIC PANEL 2022-08-26 04:56:00 [facility] Center PHOSPHORUS 2022-08-26 04:56:00 [facility] CBC W/PLT COUNT & AUTO 2022-08-26 04:56:00 [facility] POCT-GLUCOSE METER 2022-08-25 19:39:00 Huong Marrero [facility] POCT-GLUCOSE METER 2022-08-25 17:27:00 Huong Marrero [facility] POCT-GLUCOSE METER 2022-08-25 11:00:00 Huong Marrero [facility] POCT-GLUCOSE METER 2022-08-25 08:20:00 Huong Marrero [facility] B-TYPE NATRIURETIC FACTOR 2022-08-25 06:27:00 Dilcia Leblanc [facility] (BNP) Edgar PTH, INTACT 2022-08-25 06:27:00 [facility] CBC W/PLT COUNT & AUTO 2022-08-25 06:26:00 [facility] BASIC METABOLIC PANEL 2022-08-25 06:26:00 [facility] MAGNESIUM 2022-08-25 06:26:00 [facility] VITAMIN D, 25-HYDROXY 2022-08-25 06:26:00 [facility] CBC W/PLT COUNT & AUTO 2022-08-25 06:26:00 [facility] (CELLAVISION MANUAL DIFF) 2022-08-25 06:26:00 Dilcia Leblanc [facility] POCT-GLUCOSE METER 2022-08-24 19:35:00 Huong Marrero [facility] POCT-GLUCOSE METER 2022-08-24 15:52:00 Huong Marrero [facility] POCT-GLUCOSE METER 2022-08-24 08:04:00 Huong Marrero [facility] CBC W/PLT COUNT & AUTO 2022-08-24 05:45:00 [facility] BASIC METABOLIC PANEL 2022-08-24 05:45:00 [facility] CBC W/PLT COUNT & AUTO 2022-08-24 05:45:00 [facility] POCT-GLUCOSE METER 2022-08-23 17:33:00 Huong Marrero [facility] POCT-GLUCOSE METER 2022-08-23 08:49:00 Huong Marrero [facility] CBC W/PLT COUNT & AUTO 2022-08-23 04:54:00 [facility] BASIC METABOLIC PANEL 2022-08-23 04:54:00 Gadicherla, [facility] CBC W/PLT COUNT & AUTO 2022-08-23 04:54:00 Deana [facility] DIFFERENTIAL Center (CELLAVISION MANUAL DIFF) 2022-08-23 04:54:00 Deana [facility] POCT-GLUCOSE METER 2022-08-22 17:50:00 Huong Marrero [facility] SARS-COV2/RT-PCR ([facility] & 2022-08-22 17:48:00 [facility]) [facility] POCT-GLUCOSE METER 2022-08-22 13:02:00 Huong Marrero [facility] POCT-GLUCOSE METER 2022-08-22 07:52:00 Huong Marrero [facility] CBC W/PLT COUNT & AUTO 2022-08-22 05:11:00 Mitchel [facility] DIFFERENTIAL [facility] CALCIUM, IONIZED 2022-08-22 05:11:00 [facility] W/PLT COUNT & AUTO 2022-08-22 05:11:00 Deana [facility] (CELLAVISION MANUAL DIFF) 2022-08-22 05:11:00 Deana Dilcia C [facility] LACTATE DEHYDROGENASE 2022-08-22 05:10:00 Prema [facility] Center BILIRUBIN, INDIRECT 2022-08-22 05:10:00 Prema Terry [facility] COMPREHENSIVE METABOLIC 2022-08-22 05:10:00 Prateek [facility] Center MAGNESIUM 2022-08-22 05:10:00 Prateek [facility] PHOSPHORUS 2022-08-22 05:10:00 [facility] HAPTOGLOBIN 2022-08-22 05:10:00 Prema [facility] FIBRINOGEN 2022-08-22 05:10:00 Prema [facility] BILIRUBIN, DIRECT 2022-08-22 05:10:00 Huong Marrero [facility] PREPARE RBC 2022-08-21 23:54:00 Justin Gasca [facility] POCT-GLUCOSE METER 2022-08-21 22:03:00 Huong Marrero [facility] POCT-GLUCOSE METER 2022-08-21 18:04:00 Huong Marrero [facility] POCT-GLUCOSE METER 2022-08-21 12:39:00 Huong Marrero [facility] POCT-GLUCOSE METER 2022-08-21 08:23:00 Huong Marrero [facility] COMPREHENSIVE METABOLIC 2022-08-21 05:27:00 Prateek [facility] PANEL Center MAGNESIUM 2022-08-21 05:27:00 Prateek [facility] PHOSPHORUS 2022-08-21 05:27:00 [facility] CBC W/PLT COUNT & AUTO 2022-08-21 03:45:00 Suzette Grullon [facility] DIFFERENTIAL [facility] CALCIUM, IONIZED 2022-08-21 03:45:00 Prateek [facility] CBC W/PLT COUNT & AUTO 2022-08-21 03:45:00 Deana [facility] DIFFERENTIAL Center POCT-GLUCOSE METER 2022-08-20 22:14:00 Huong Marrero [facility] CBC (HEMOGRAM ONLY) 2022-08-20 17:47:00 Deana [facility] POCT-GLUCOSE METER 2022-08-20 16:28:00 Huong Marrero [facility] CT ABDOMEN/PELVIS WITHOUT 2022-08-20 12:52:00 Huong Marrero [facility] IV CONTRAST Center TRANSFUSE LEUKO-REDUCED 2022-08-20 10:31:00 Huong Marrero [facility] RED BLOOD CELLS Center CBC (HEMOGRAM ONLY) 2022-08-20 08:30:00 Deana [facility] TYPE AND SCREEN, 2022-08-20 08:30:00 Deana [facility] AUTOMATED Center POCT-GLUCOSE METER 2022-08-20 08:20:00 Huong Marrero [facility] SCREEN, URINE 2022-08-20 05:08:00 Prema Terry [facility] CBC W/PLT COUNT & AUTO 2022-08-20 05:08:00 [facility] CALCIUM, IONIZED 2022-08-20 05:08:00 [facility] COMPREHENSIVE METABOLIC 2022-08-20 05:08:00 [facility] PANEL Center MAGNESIUM 2022-08-20 05:08:00 [facility] PHOSPHORUS 2022-08-20 05:08:00 [facility] CBC W/PLT COUNT & AUTO 2022-08-20 05:08:00 Deana [facility] DIFFERENTIAL Center POCT-GLUCOSE METER 2022-08-19 20:05:00 Huong Marrero [facility] POCT-GLUCOSE METER 2022-08-19 18:10:00 Huong Marrero [facility] POCT-GLUCOSE METER 2022-08-19 12:33:00 Huong Marrero [facility] BASIC METABOLIC PANEL 2022-08-19 11:45:00 Mitchel [facility] PROTHROMBIN TIME/INR 2022-08-19 11:45:00 Huong Marrero [facility] HEPATITIS PANEL, ACUTE 2022-08-19 11:44:00 Huong [facility] CBC W/PLT COUNT & AUTO 2022-08-19 11:44:00 Mitchel [facility] DIFFERENTIAL [facility] CBC W/PLT COUNT & AUTO 2022-08-19 11:44:00 Dilcia Leblanc [facility] POCT-GLUCOSE METER 2022-08-19 08:23:00 Huong Marrero [facility] HEMOGLOBIN AND HEMATOCRIT 2022-08-18 21:43:00 [facility] POCT-GLUCOSE METER 2022-08-18 21:03:00 Huong Marrero [facility] POCT-GLUCOSE METER 2022-08-18 17:54:00 Huong Marrero [facility] TISSUE EXAM 2022-08-18 14:16:00 [facility] US RENAL BIOPSY 2022-08-18 14:00:00 [facility] POCT-GLUCOSE METER 2022-08-18 08:14:00 Huong Marrero [facility] COMPREHENSIVE METABOLIC 2022-08-18 05:31:00 [facility] PANEL Center MAGNESIUM 2022-08-18 05:31:00 [facility] PHOSPHORUS 2022-08-18 05:31:00 [facility] CALCIUM, IONIZED 2022-08-18 05:29:00 [facility] CBC W/PLT COUNT & AUTO 2022-08-18 05:29:00 [facility] PROTHROMBIN TIME/INR 2022-08-18 05:29:00 [facility] CBC W/PLT COUNT & AUTO 2022-08-18 05:29:00 [facility] (CELLAVISION MANUAL DIFF) 2022-08-18 05:29:00 [facility] POCT-GLUCOSE METER 2022-08-17 21:15:00 Huong Marrero [facility] POCT-GLUCOSE METER 2022-08-17 07:43:00 Huong Marrero [facility] CBC W/PLT COUNT & AUTO 2022-08-17 06:32:00 Sha [facility] DIFFERENTIAL Edgar CALCIUM, IONIZED 2022-08-17 06:32:00 [facility] COMPREHENSIVE METABOLIC 2022-08-17 06:32:00 [facility] PANEL Center MAGNESIUM 2022-08-17 06:32:00 Chandra [facility] PHOSPHORUS 2022-08-17 06:32:00 [facility] LACTATE DEHYDROGENASE 2022-08-17 06:32:00 Emil Corral [facility] (LDH) Edgar RETICULOCYTE COUNT 2022-08-17 06:32:00 Emil Corral [facility] CBC W/PLT COUNT & AUTO 2022-08-17 06:32:00 Elo [facility] GI PATHOGEN PROFILE BY 2022-08-17 06:32:00 [facility] C. DIFFICILE GDH TOXIN 2022-08-17 06:32:00 [facility] POCT-GLUCOSE METER 2022-08-16 23:37:00 [facility] BILIRUBIN, ADULT TOTAL 2022-08-16 15:11:00 [facility] LACTATE DEHYDROGENASE 2022-08-16 15:10:00 Mary Welch [facility] ([facility]) Edgar HAPTOGLOBIN 2022-08-16 15:10:00 [facility] CBC W/PLT COUNT & AUTO 2022-08-16 06:44:00 [facility] COMPREHENSIVE METABOLIC 2022-08-16 06:44:00 [facility] Center MAGNESIUM 2022-08-16 06:44:00 [facility] PHOSPHORUS 2022-08-16 06:44:00 Chandra [facility] CREATINE KINASE (CK) 2022-08-16 06:44:00 [facility] CBC W/PLT COUNT & AUTO 2022-08-16 06:44:00 [facility] DIFFERENTIAL Center US RENAL COMPLETE 2022-08-16 01:38:00 [facility] LUPUS ANTICOAGULANT 2022-08-15 21:00:00 [facility] SCREEN WITH REFLEX TO Center CONFIRMATORY CBC W/PLT COUNT & AUTO 2022-08-15 20:57:00 [facility] DIFFERENTIAL Center COMPREHENSIVE METABOLIC 2022-08-15 20:57:00 [facility] PANEL Center MAGNESIUM 2022-08-15 20:57:00 [facility] DOUBLE-STRANDED DNA 2022-08-15 20:57:00 [facility] (DSDNA) ANTIBODY Center COMPLEMENT COMPONENT C3 2022-08-15 20:57:00 [facility] CREATINE KINASE (CK) 2022-08-15 20:57:00 [facility] PERIPHERAL BLOOD SMEAR - 2022-08-15 20:57:00 [facility] PATHOLOGIST REVIEW Center ANTI-NUCLEAR ANTIBODY 2022-08-15 20:57:00 [facility] (CEZAR) Edgar CMV PCR, QUANTITATIVE 2022-08-15 20:57:00 [facility] RETICULOCYTE COUNT 2022-08-15 20:57:00 [facility] LACTATE DEHYDROGENASE 2022-08-15 20:57:00 [facility] (LDH) Edgar HAPTOGLOBIN 2022-08-15 20:57:00 [facility] IRON, TIBC, % SAT. 2022-08-15 20:57:00 [facility] (WITHOUT FERRITIN) Center FERRITIN 2022-08-15 20:57:00 [facility] VITAMIN B12 2022-08-15 20:57:00 [facility] HC LAB HIV-1 AG W/HIV-1&2 2022-08-15 20:57:00 [facility] AB Center PROTHROMBIN TIME/INR 2022-08-15 20:57:00 [facility] ANTI-ASHLEY AB (DOMINATRIX, CHANDRA) 2022-08-15 20:57:00 [facility] CARDIOLIPIN ANTIBODIES, 2022-08-15 20:57:00 [facility] IGG AND IGM Center BETA-2 GLYCOPROTEIN 2022-08-15 20:57:00 [facility] ANTIBODIES Edgar CEZAR TITER AND PATTERN 2022-08-15 20:57:00 [facility] ANTI-DNA TITER 2022-08-15 20:57:00 [facility] SJZR-1-WBYCEQGHYDKS I IGG 2022-08-15 20:57:00 [facility] HGGE-2-CJNWPJLDAOUP I IGM 2022-08-15 20:57:00 [facility] XREX-6-GOPSBJUTOTJV I IGA 2022-08-15 20:57:00 [facility] DIRECT AHG (IZAIAH)/DIRECT 2022-08-15 20:57:00 [facility] IDANIA Center BLOOD TYPING, AUTOMATED 2022-08-15 20:57:00 [facility] CBC W/PLT COUNT & AUTO 2022-08-15 20:57:00 [facility] URINALYSIS W/ MICROSCOPIC 2022-08-15 16:39:00 [facility] SODIUM, RANDOM URINE 2022-08-15 16:37:00 [facility] PROTEIN, RANDOM URINE 2022-08-15 16:37:00 [facility] CREATININE, RANDOM URINE 2022-08-15 16:37:00 [facility] CT ABDOMEN PELVIS WO 2022-06-14 01:59:31 Luz Maria Lambert [facility] POCT TEST 2022-06-14 01:01:00 Luz Maria Lambert [facility] LIPASE 2022-06-14 00:58:00 Luz Maria Lambert [facility] COMP. METABOLIC PANEL 2022-06-14 00:58:00 Luz Maria Lambert [facility] ([id number]) [facility] CBC WITH DIFF 2022-06-14 00:58:00 Luz Maria Lambert [facility] URINALYSIS 2022-06-14 00:58:00 Luz Maria Lambert [facility] CONSENT/REFUSAL FOR 2022-06-14 00:16:37 Doctor Unassrubi, [facility] DIAGNOSIS AND TREATMENT [place] [facility] LACTIC ACID WHOLE BLOOD 2022-06-08 23:41:00 Joelle Pelletier [facility] CT ABDOMEN PELVIS WO 2022-06-08 22:12:00 Joelle Pelletier [facility] LIPASE 2022-06-08 20:40:00 Joelle Pelletier [facility] COMP. METABOLIC PANEL 2022-06-08 20:40:00 Joelle Pelletier [facility] ([id number]) [facility] CBC WITH DIFF 2022-06-08 19:47:00 Joelle Pelletier [facility] CONSENT/REFUSAL FOR 2022-06-08 19:08:29 Doctor Unassrubi, [facility] DIAGNOSIS AND TREATMENT [place] [facility] [place] BASIC METABOLIC PANEL 2022-04-09 03:51:00 [facility] MAGNESIUM 2022-04-09 03:51:00 [facility] PHOSPHORUS 2022-04-09 03:51:00 [facility]f [facility] CBC W/PLT COUNT & AUTO 2022-04-08 11:36:00 Dai Garcia [facility] CBC W/PLT COUNT & AUTO 2022-04-08 11:36:00 Dai Garcia [facility] DIFFERENTIAL Center XR ABDOMEN/KUB 1 VIEW 2022-04-08 07:49:00 Tammie Melara [facility] I [facility] BASIC METABOLIC PANEL 2022-04-08 03:37:00 Cinthia Santana [facility] CBC W/PLT COUNT & AUTO 2022-04-07 15:13[facility] & AUTO 2022-04-07 15:13:00 [facility] SARS-[facility]OV2/RT-[facility] ([facility] & 2022-04-07 12:30:00 Gerhard, [facility] REF LABS) Center VANCOMYCIN LEVEL, RANDOM 2022-04-07 04:58:00 [facility] VANCOMYCIN LEVEL, RANDOM 2022-04-06 03:59:00 [facility] CBC W/PLT COUNT & AUTO 2022-04-06 03:59:00 [facility] BASIC METABOLIC PANEL 2022-04-06 03:59:00 Dai Villasenor [facility] PHOSPHORUS 2022-04-06 03:59:00 [facility] MAGNESIUM 2022-04-06 03:59:00 [facility] CBC W/PLT COUNT & AUTO 2022-04-06 03:59:00 [facility] DIFFERENTIAL [facility] CT ABDOMEN/PELVIS WITHOUT 2022-04-05 10:49:00 Kelechi Dewitt [facility] IV CONTRAST Center CALCIUM, IONIZED 2022-04-05 04:31:00 Armando Chandra [facility] BASIC METABOLIC PANEL 2022-04-05 04:31:00 Gerhard, [facility] VANCOMYCIN LEVEL, RANDOM 2022-04-05 04:31:00 [facility] S[facility]INE 2022-04-05 00:47:00 Gerhard, [facility] CBC W/PLT COUNT & AUTO 2022-04-04 04:28:00 [facility] COMPREHENSIVE METABOLIC 2022-04-04 04:28:00 [facility] MAGNESIUM 2022-04-04 04:28:00 [facility] PHOSPHORUS 2022-04-04 04:28:00 [facility] CBC W/PLT COUNT & AUTO 2022-04-04 04:28:00 [facility] CALCIUM, IONIZED 2022-04-04 04:28:00 [facility] HEMODIALYSIS INPATIENT 2022-04-03 19:03:14 Cinthia Santana [facility] CBC W/PLT COUNT & AUTO 2022-04-03 05:05:00 [facility] CBC W/PLT COUNT & AUTO 2022-04-03 05:05:00 [facility] CALCIUM, IONIZED 2022-04-03 05:05:00 [facility] COMPREHENSIVE METABOLIC 2022-04-03 05:05:00 [facility] MAGNESIUM 2022-04-03 05:05:00 [facility] PHOSPHORUS 2022-04-03 05:05:00 [facility] IRON, TIBC, % SAT. 2022-04-03 05:05:00 [facility] (WITHOUT FERRITIN) Edgar FERRITIN 2022-04-03 05:05:00 [facility] RETICULOCYTE COUNT 2022-04-03 05:05:00 [facility] SARS-COV2/RT-PCR ([facility] & 2022-04-02 20:47:00 Gerhard, [facility] REF LABS) Center CBC W/PLT COUNT & AUTO 2022-04-02 04:31:00 Gwen Vargas [facility] BLOOD CULTURE 2022-04-02 04:31:00 Gwen Vargas [facility] CBC W/PLT COUNT & AUTO 2022-04-02 04:31:00 Gwen Vargas [facility] DIFFERENTIAL [facility] BLOOD CULTURE 2022-04-02 01:14:00 [facility] BLOOD [facility] 2022-04-02 01:14:00 [facility] IDENTIFICATION PANEL [facility] CBC (HEMOGRAM ONLY) 2022-04-01 22:25:00 [facility] BASIC METABOLIC PANEL 2022-04-01 22:25:00 [facility] HEPATITIS B SURFACE 2022-03-10 04:23:00 [facility] ANTIGEN Edgar HEPATITIS B SURFACE 2022-03-10 04:23:00 [facility] ANTIBODY Edgar HEPATITIS B CORE 2022-03-10 04:23:00 [facility] ANTIBODY, TOTAL Center PHYSICIAN ORDERS 2021-11-14 05:01:00 Doctor Unassigned, [facility] [place] [facility] PHYSICIAN ORDERS 2021-09-02 06:01:00 Doctor Unassigned, [facility] Name Medical Branch Insertion of cannula for 2021-04-05 00:44:00 [facility] orial [place] hemodialysis, other purpose (separate procedure); vein to vein Insertion of non-tunneled 2021-04-04 10:12:00 Ar morial [place] centrally inserted central venous catheter; age 5 years or older Plan of Care Planned Activity Planned Date Details Comments Source Future Scheduled Test 2022-08-[address] [facility] 00:00:00 (12+) [code = [facility] Center DEPRESSION SCREENING (12+)] Future Scheduled Test 2022-04-[address] [facility] 00:00:00 (#1) [code = Medical Center INFLUENZA VACCINE (#1)] Future Scheduled Test 2022-04-[address] [facility] 00:00:00 (#1) [code = [facility] Center INFLUENZA VACCINE (#1)] Future Scheduled Test 2021-08-[address] [facility] 00:00:00 (12+) [code = [facility] Center DEPRESSION SCREENING (12+)] Future Scheduled Test 2011 [facility]00 malignant neoplasm Medical C enter of cervix (procedure) [code = 347670414] Future Scheduled Test 2011 Screening for [facility]:00 malignant neoplasm Medical C enter of cervix (procedure) [code = 671308961] Future Scheduled Test [address] [facility] 00:00:00 (procedure) [code = [facility] Center [id number]] Future Scheduled Test [address] [facility] 00:00:00 (procedure) [code = [facility] [id number]] Future Scheduled Test 2009 DTAP/TDAP/TD [facility] 00:00:00 VACCINES (1 - Tdap) [facility] [code = DTAP/TDAP/TD VACCINES (1 - Tdap)] Future Scheduled Test 2009 DTAP/TDAP/TD [facility] 00:00:00 VACCINES (1 - Tdap) [facility] [code = DTAP/TDAP/TD VACCINES (1 - Tdap)] Future Scheduled Test [address] [facility] 00:00:00 SCREENING [code = Medical Ce nter HEPATITIS C SCREENING] Future Scheduled Test [address] [facility] Screening (12+) [code = Tobacco Cessation Counseling and Screening (12+)] Future Scheduled Test 1990 COVID-[address] [facility] 00:[facility]00 (#1) [code = [facility] COVID-19 VACCINE (#1)] Future Scheduled Test 1990 COVID-[address] [facility] 00:00:00 (#1) [code = [facility] COVID-19 VACCINE (#1)] Medication 2022-11-[address] [facility] 00:00:00 (DELTASONE) [address] tablet [code = 895076] Medication 2022-11-[address] [facility] 00:00:00 (DELTASONE) 10 [facility] Medical Ce nter tablet [code = 847197] Medication 2022-10-[address] [facility] 00:00:00 (DELTASONE) 10 [facility] Medical Ce nter tablet [code = 091658] Medication 2022-10-[address] [facility] 00:00:00 (DELTASONE) 10 [facility] Medical Ce nter tablet [code = 925763] Medication 2022-09-[address] [facility] 00:00:00 (DELTASONE) 10 [facility] Medical Ce nter tablet [code = 488247] Encounters Start End Encounter Admission Attending Care Care Encounter Source Date/Time Date/Time Type Type Clinicians Facility Department ID 2022-08-14 Inpatient ER [facility] Nephrology [id number] 14:13:37 [facility] 2022-08-15 2022-09-11 Hospital Nataly Pitts [facility] [id number] [facility] 10:53:00 14:30:00 Encounter Uri Carter [facility], Justin [facility] Mar[facility], Corrina Navarrete, Suzette Muralinath 2022-08-15 2022-09-11 Inpatient UR MITCHEL, [facility] Rheumatolog [id number] [facility] 10:53:00 14:30:00 SUZETTE y 2022-08-15 2022-08-15 Travel [facility] [id number] [facility] 00:[facility] 00:00:00 [facility] 2022-06-25 2022-06-25 Outpatient DORIE ABBIE MARSHALL [id number] YEMI 10:04:00 13:20:00 SHAHID 2022-06-13 2022-06-13 Emergency X FAUSTO VAVY ERT [id number] Univers 19:29:00 22:47:00 LUZ MARIA masters [facility] 2022-06-13 2022-06-13 Emergency JOÃO Lambert [id number] Univers 19:29:00 22:47:00 Luz Maria ANDERSON [id number] sonam [facility] [id number] [facility] [phone] [place] [id number] [place] 2022-06-08 2022-06-08 Emergency X CARLEEN [facility] ERT [id number] Univers 14:19:00 19:21:00 JAZLYN sonam [facility] 2022-06-08 2022-06-08 Emergency Joelle Pelletier [facility] 1.2.8 40.114 [id number] Univers 14:19:00 19:21:[address] [place] [id number] [facility] [id number] [facility] [phone] [facility] 084 [place] 2022-05-07 2022-05-07 Outpatient C DEMETRIA, [facility] [id number] 10:15:00 23:59:00 [facility]22-[facility] 2022-04-09 [facility] [id number] 19:29:00 15:16:00 Encounter Lashell Hennessy, [facility] 2022-04-01 2022-04-09 [id number] [facility] 19:29:00 15:16:00 [place] 2022-04-01 2022-04-09 [facility] [id number] 19:29:00 15:16:00 [facility]10 2022-03-10 Lab [facility] [id number] 00:00:00 00:00:00 Requisitio Raissa [facility] 2022-03-10 2022-03-10 Lab [facility] [id number] 00:00:00 00:00:00 Requisitio Raissa [facility] 2022-01-12 2022-01-12 Outpatient SOPHIE BLANCO [id number] Sophie 15:45:00 15:45:00 TOBI dinh 2021-11-14 2021-11-14 Machine Specialist Harjit, Adc Lab Main [facility] 1.2.8 40.114 [id number] Univers 16:15:00 16:30:00 Visit Felicita Grimaldo [id number] [phone] [address] 2021-11-14 2021-11-14 Outpatient R SHERLY, [facility] [id number] Univers 16:15:00 16:15:00 FELICITA ity [facility] 2021-11-14 2021-11-14 Orders Doctor KEY 1.2.840.114 [id number] Univers 00:00:00 00:00:00 Only Unassigned, ZAN [id number] ity of [place] [facility] 4.2.7.2.686 [place] as [phone] [address] 2021-09-02 2021-09-02 Machine Specialist Harjit, Adc Lab Main [facility] 1.2.8 40.114 [id number] Univers 16:15:00 16:30:00 Visit Grace Potts 350.1.13.10 [place] [phone] [address] 2021-09-02 2021-09-02 Outpatient R OPAL, [facility] [id number] Univers 16:15:00 16:15:00 GRACE masters [facility] 2021-09-02 2021-09-02 Orders Doctor EKY 1.2.840.114 [id number] Univers 00:00:00 00:00:00 Only Unassigned, ZAN 350.1.13.10 ity of [place] [facility] 4.2.7.2.686 [place] [phone] [address] 2021-04-05 2021-04-11 Inpatient [facility] [id number] Memoria 04:38:00 21:51:00 r [place] 25 l [facility] 2021-04-04 2021-04-11 Inpatient JACK ROLLE [facility] MED 1225 [facility] 23:38:00 16:51:00 2021-04-03 2021-04-05 Inpatient [facility] [id number] Memoria 23:24:12 04:00:00 r [place] 00 l [facility] 2021-04-03 2021-04-04 Inpatient E DEMBK, [facility] MED 7500 [facility] 21:43:00 23:00:00 HONORIO 2021-03-19 2021-03-19 Outpatient R OPAL [facility] [id number] Univers 17:15:00 17:15:00 GRACE masters [facility] 2021-01-22 2021-01-22 Outpatient R OPAL [facility] [id number] Univers 12:45:00 12:45:00 GRACE itmilena [facility] 2021-01-21 2021-01-21 Outpatient Lia POTTS [facility] [id number] Univers 11:30:00 11:30:00 GRACE itmilena [facility] 2020-02-07 2020-02-07 Machine Specialist Harjit [facility] 1.2.840.114 [id number] 17:26:43 17:41:43 Visit Lab Main [place] 350.1.13.10 [place] 4.2.7.2.686 Professio [phone] [facility] 353 [facility] 2020-02-07 2020-02-07 Outpatient Lia POTTS [facility] [id number] Univers 17:00:00 17:00:00 GRACE milena [facility] 2020-02-07 2020-02-07 Orders Doctor KEY 1.2.840.114 [id number] 00:00:00 00:00:00 Only Unassigned, ZAN 350.1.13.10 [place] [facility] 4.2.7.2.686 [id number] 009 2019-11-02 2019-11-02 Machine Specialist Harjit [facility] 1.2.840.114 [id number] 10:22:24 10:37:24 Visit Lab Main [place] 350.1.13.10 [place] 4.2.7.2.686 Professio [phone] [address] 2019-11-02 2019-11-02 Outpatient R OPAL [facility] [id number] Univers 10:15:00 10:15:00 GRACE [facility] 2019-11-02 2019-11-02 Orders Doctor SHAHID 1.2.840.114 [id number] 00:00:00 00:00:00 Only Unassigned, ZAN 350.1.13.10 [place] [facility] 4.2.7.2.686 [id number] [id number] 2019-10-16 2019-10-16 Outpatient R UNKNOWN, [facility] [id number] Univers 18:30:00 18:30:00 ATTENDING [facility] Results Test Description Test Time Test Comments Results Result Comments Source BASIC METABOLIC PANEL 2022-09-11 04:49:23 Test Item Value Reference Range Interpretation Comme nts SODIUM (BEAKER) (test 143 meq/L 136-145 code = 381) POTASSIUM (BEAKER) 3.9 meq/L 3.5-5.1 (test code = 379) CHLORIDE (BEAKER) (test 110 meq/L 98-107 H code = 382) CO2 (BEAKER) (test code 26 meq/L 22-29 = 355) BLOOD UREA NITROGEN 34 mg/dL 7-21 H (BEAKER) (test code = 354) CREATININE (BEAKER) 3.17 mg/dL 0.57-1.25 H (test code = 358) GLUCOSE RANDOM (BEAKER) 145 mg/dL 70-105 H (test code = 652) CALCIUM (BEAKER) (test 8.1 mg/dL 8.4-10.2 L code = 697) EGFR (BEAKER) (test 19 mL/min/1.73 sq In terpretation of eGFR values code = 1092) m Stage Descripti on Result G1 Normal or high >=90 G2 Mildly decreased 60-89 G3a Mildly to moderately 45-5 9 G3b Moderately to severely 30- 44 G4 Severly decreased 15-2 9 G5 Kidney failure <15Repo rted eGFR is based on the CK D-EPI 2020 equation that d oes not use a race coefficien tEstimated GFR is not as accurate as Creatinine Clearance in pr edicting glomerular filt ration rate. Estimated GFR i s not applicable for dialysis pa tients Pharmacists ID - HENRY GCBC W/PLT COUNT & AUTO [id number] 04:20:10 Test Item Value Reference Range Interpretation Comments WHITE BLOOD CELL COUNT 8.3 K/ L 3.5-10.5 (BEAKER) (test code = 775) RED BLOOD CELL COUNT 3.09 M/ L 3.93-5.22 L (BEAKER) (test code = 761) HEMOGLOBIN (BEAKER) 8.0 GM/DL 11.2-15.7 L (test code = 410) HEMATOCRIT (BEAKER) 25.3 % 34.1-44.9 L (test code = 411) MEAN CORPUSCULAR 82 fL 79-95 Discordant results VOLUME (BEAKER) (test compar ed to previous code = 753) results; clinic al correlation req uired MEAN CORPUSCULAR 25.9 pg 25.6-32.2 HEMOGLOBIN (BEAKER) (test code = 751) MEAN CORPUSCULAR 31.6 GM/DL 32.2-35.5 L HEMOGLOBIN CONC (BEAKER) (test code = 752) RED CELL DISTRIBUTION 19.1 % 11.7-14.4 H WIDTH (BEAKER) (test code = 412) PLATELET COUNT 91 K/CU MM 150-450 L (BEAKER) (test code = 756) MEAN PLATELET VOLUME Unable to report due (BEAKER) (test code = to abn ormal Platelet 754) population distribution. NUCLEATED RED BLOOD 0 /100 WBC 0-0 CELLS (BEAKER) (test code = 413) NEUTROPHILS RELATIVE 81 % PERCENT (BEAKER) (test code = 429) LYMPHOCYTES RELATIVE 7 % PERCENT (BEAKER) (test code = 430) MONOCYTES RELATIVE 11 % PERCENT (BEAKER) (test code = 431) EOSINOPHILS RELATIVE 0 % PERCENT (BEAKER) (test code = 432) BASOPHILS RELATIVE 0 % PERCENT (BEAKER) (test code = 437) NEUTROPHILS ABSOLUTE 6.70 K/ L 1.56-6.13 H COUNT (BEAKER) (test code = 670) LYMPHOCYTES ABSOLUTE 0.61 K/ L 1.18-3.74 L COUNT (BEAKER) (test code = 414) MONOCYTES ABSOLUTE 0.87 K/ L 0.24-0.36 H COUNT (BEAKER) (test code = 415) EOSINOPHILS ABSOLUTE 0.00 K/ L 0.04-0.36 L COUNT (BEAKER) (test code = 416) BASOPHILS ABSOLUTE 0.01 K/ L 0.01-0.08 COUNT (BEAKER) (test code = 417) IMMATURE 1.20 % 0.00-1.00 H GRANULOCYTES-RELATIVE PERCENT (BEAKER) (test code = 2801) Prepare [id number] 23:54:00 Test Item Value Reference Range Interpretation Comments CROSSMATCH (test code = 2264) COMPATIBLE Unit ABO (test code = O Pos 1736292) UNIT NUMBER (test code = B748535144066 934-0) Status (test code = 1786589) TX_TIMEINCHART Blood Bank Product (test code RED BLOOD CELLS = 2263) PRODUCT CODE (test code = E3112D01 933-2) [facility] [id number] 14:11:29 Test Item Value Reference Range Interpretation Comments SCAN RESULT (test code = See scanned report [id number]) See scanned reportRAD, CHEST, 1 VIEW, NON [id number] 11:53:00Reason for exam:->coughShould this be performed at the bedside?->Yes [facility] 1990 Sex: FFINAL REPORT INDICATION: cough COMPARISON: None TECHNIQUE: Single frontal view of the chest. FINDINGS: Lines, tubes, and devices: The right internal jugular vein central venous catheter tip overlies the atriocaval junction.Lungs and pleura: Bibasilar linear atelectasis. Low lung volumes with perivascular crowding. No focal consolidation. No pneumothorax.Heart and mediastinum: The heart size at the upper limits of normal. Unremarkable mediastinal contours.Osseous structures: No acute abnormality.Other: None. IMPRESSION: No acute intrathoracic abnormality. Low lung volumes with periv ascular crowding. Signed: Sofia Guidry MDReport Verified Date/Time: 09/10/2022 11:53:38 Reading Location: [facility] B1 C013V Neuro Reading Room COMPREHENSIVE METABOLIC PANEL 2022-09-10 05:18:17 Test Item Value Reference Range Interpretation Comments TOTAL PROTEIN 4.6 gm/dL 6.0-8.3 L Specimen sligh tly (BEAKER) (test hemolyzed code = 770) ALBUMIN (BEAKER) 2.6 g/dL 3.5-5.0 L Specimen sl ightly (test code = 1145) hemolyzed ALKALINE 80 U/L 40-150 PHOSPHATASE (BEAKER) (test code = 346) BILIRUBIN TOTAL 0.4 mg/dL 0.2-1.2 Specimen sli ghtly (BEAKER) (test hemolyzed code = 377) SODIUM (BEAKER) 142 meq/L 136-145 (test code = 381) POTASSIUM (BEAKER) 3.9 meq/L 3.5-5.1 Specimen slightly (test code = 379) hemolyzed CHLORIDE (BEAKER) 108 meq/L 98-107 H (test code = 382) CO2 (BEAKER) (test 28 meq/L 22-29 code = 355) BLOOD UREA 22 mg/dL 7-21 H NITROGEN (BEAKER) (test code = 354) CREATININE 2.36 mg/dL 0.57-1.25 H Specimen slight ly (BEAKER) (test hemolyzed code = 358) GLUCOSE RANDOM 121 mg/dL 70-105 H (BEAKER) (test code = 652) CALCIUM (BEAKER) 8.0 mg/dL 8.4-10.2 L (test code = 697) AST (SGOT) 14 U/L 5-34 Specimen slight ly (BEAKER) (test hemolyzed code = 353) ALT (SGPT) 10 U/L 6-55 Specimen slight ly (BEAKER) (test hemolyzed code = 347) EGFR (BEAKER) 27 Interpretatio n of eGFR (test code = [...] not appl icable for dialysis patien ts Pharmacists ID - HENRY [id number] 05:16:05 Test Item Value Reference Range Interpretation Comments MAGNESIUM (BEAKER) 1.8 mg/dL 1.6-2.6 Specimen slightly (test code = 627) hemolyzed Pharmacists ID - HENRY [id number] 05:16:05 Test Item Value Reference Range Interpretation Comments PHOSPHORUS (BEAKER) 2.2 mg/dL 2.3-4.7 L Specimen slightly (test code = 604) hemolyzed Pharmacists ID - HENRY GCALCIUM, [id number] 04:40:55 Test Item Value Reference Range Interpretation Comments CALCIUM IONIZED (BEAKER) (test 1.00 mmol/L 1.12-1.27 L code = 698) PH, BLOOD (BEAKER) (test code = 7.53 1810) CBC W/PLT COUNT & AUTO [id number] 04:40:47 Test Item Value Reference Range Interpretation Comments WHITE BLOOD CELL COUNT 7.7 K/ L 3.5-10.5 (BEAKER) (test code = 775) RED BLOOD CELL COUNT 3.14 M/ L 3.93-5.22 L (BEAKER) (test code = 761) HEMOGLOBIN (BEAKER) 8.0 GM/DL 11.2-15.7 L (test code = 410) HEMATOCRIT (BEAKER) 24.6 % 34.1-44.9 L (test code = 411) MEAN CORPUSCULAR VOLUME 78 fL 79-95 L (BEAKER) (test code = 753) MEAN CORPUSCULAR 25.5 pg 25.6-32.2 L HEMOGLOBIN (BEAKER) (test code = 751) MEAN CORPUSCULAR 32.5 GM/DL 32.2-35.5 HEMOGLOBIN CONC (BEAKER) (test code = 752) RED CELL DISTRIBUTION 18.9 % 11.7-14.4 H WIDTH (BEAKER) (test code = 412) PLATELET COUNT (BEAKER) 81 K/CU MM 150-450 L (test code = 756) MEAN PLATELET VOLUME Unable to report due (BEAKER) (test code = to abn ormal Platelet 754) population distribution. NUCLEATED RED BLOOD 0 /100 WBC 0-0 CELLS (BEAKER) (test code = 413) NEUTROPHILS RELATIVE 80 % PERCENT (BEAKER) (test code = 429) LYMPHOCYTES RELATIVE 7 % PERCENT (BEAKER) (test code = 430) MONOCYTES RELATIVE 10 % PERCENT (BEAKER) (test code = 431) EOSINOPHILS RELATIVE 0 % PERCENT (BEAKER) (test code = 432) BASOPHILS RELATIVE 0 % PERCENT (BEAKER) (test code = 437) NEUTROPHILS ABSOLUTE 6.21 K/ L 1.56-6.13 H COUNT (BEAKER) (test code = 670) LYMPHOCYTES ABSOLUTE 0.55 K/ L 1.18-3.74 L COUNT (BEAKER) (test code = 414) MONOCYTES ABSOLUTE 0.78 K/ L 0.24-0.36 H COUNT (BEAKER) (test code = 415) EOSINOPHILS ABSOLUTE 0.00 K/ L 0.04-0.36 L COUNT (BEAKER) (test code = 416) BASOPHILS ABSOLUTE 0.01 K/ L 0.01-0.08 COUNT (BEAKER) (test code = 417) IMMATURE 2.50 % 0.00-1.00 H GRANULOCYTES-RELATIVE PERCENT (BEAKER) (test code = 2801) BASIC METABOLIC [id number] 05:03:35 Test Item Value Reference Range Interpretation Comments SODIUM (BEAKER) 144 meq/L 136-145 (test code = 381) POTASSIUM 4.2 meq/L 3.5-5.1 Specimen slight ly (BEAKER) (test hemolyzed code = 379) CHLORIDE (BEAKER) 111 meq/L 98-107 H (test code = 382) CO2 (BEAKER) 27 meq/L 22-29 (test code = 355) BLOOD UREA 34 mg/dL 7-21 H NITROGEN (BEAKER) (test code = 354) CREATININE 3.61 mg/dL 0.57-1.25 H Specimen slight ly (BEAKER) (test hemolyzed code = 358) GLUCOSE RANDOM 107 mg/dL 70-105 H (BEAKER) (test code = 652) CALCIUM (BEAKER) 8.1 mg/dL 8.4-10.2 L (test code = 697) EGFR (BEAKER) 16 Interpretatio n of eGFR (test code = mL/min/1.73 values Stage D escription 1092) sq m Result G1 Kamla l [...] not appl icable for dialysis patien ts Pharmacists ID - ELENA WCBC W/PLT COUNT & AUTO [id number] 04:40:55 Test Item Value Reference Range Interpretation Comments WHITE BLOOD CELL COUNT 7.5 K/ L 3.5-10.5 (BEAKER) (test code = 775) RED BLOOD CELL COUNT 2.69 M/ L 3.93-5.22 L (BEAKER) (test code = 761) HEMOGLOBIN (BEAKER) 6.8 GM/DL 11.2-15.7 L (test code = 410) HEMATOCRIT (BEAKER) 21.7 % 34.1-44.9 L (test code = 411) MEAN CORPUSCULAR VOLUME 81 fL 79-95 (BEAKER) (test code = 753) MEAN CORPUSCULAR 25.3 pg 25.6-32.2 L HEMOGLOBIN (BEAKER) (test code = 751) MEAN CORPUSCULAR 31.3 GM/DL 32.2-35.5 L HEMOGLOBIN CONC (BEAKER) (test code = 752) RED CELL DISTRIBUTION 20.4 % 11.7-14.4 H WIDTH (BEAKER) (test code = 412) PLATELET COUNT (BEAKER) 78 K/CU MM 150-450 L (test code = 756) MEAN PLATELET VOLUME Unable to report due (BEAKER) (test code = to abn ormal Platelet 754) population distribution. NUCLEATED RED BLOOD 0 /100 WBC 0-0 CELLS (BEAKER) (test code = 413) NEUTROPHILS RELATIVE 81 % PERCENT (BEAKER) (test code = 429) LYMPHOCYTES RELATIVE 8 % PERCENT (BEAKER) (test code = 430) MONOCYTES RELATIVE 9 % PERCENT (BEAKER) (test code = 431) EOSINOPHILS RELATIVE 1 % PERCENT (BEAKER) (test code = 432) BASOPHILS RELATIVE 0 % PERCENT (BEAKER) (test code = 437) NEUTROPHILS ABSOLUTE 6.06 K/ L 1.56-6.13 COUNT (BEAKER) (test code = 670) LYMPHOCYTES ABSOLUTE 0.57 K/ L 1.18-3.74 L COUNT (BEAKER) (test code = 414) MONOCYTES ABSOLUTE 0.71 K/ L 0.24-0.36 H COUNT (BEAKER) (test code = 415) EOSINOPHILS ABSOLUTE 0.05 K/ L 0.04-0.36 COUNT (BEAKER) (test code = 416) BASOPHILS ABSOLUTE 0.01 K/ L 0.01-0.08 COUNT (BEAKER) (test code = 417) IMMATURE 1.70 % 0.00-1.00 H GRANULOCYTES-RELATIVE PERCENT (BEAKER) (test code = 2801) HEPATITIS C [id number] 16:29:14 Test Item Value Reference Range Interpretation Comments HEPATITIS C ANTIBODY (BEAKER) Nonreactive Nonreactive (test code = 367) Pharmacists ID - BSHEPATITIS B CORE ANTIBODY, [id number] 16:29:14 Test Item Value Reference Range Interpretation Comments HEPATITIS B CORE TOTAL ANTIBODY Nonreactive Nonreactive (BEAKER) (test code = 497) Pharmacists ID - BSHEPATITIS B SURFACE [id number] 16:29:13 Test Item Value Reference Range Interpretation Comments HEPATITIS B SURFACE ANTIGEN (2) Nonreactive Nonreactive (BEAKER) (test code = 2585) Specimen is considered negative for HBsAg.POC-Glucose [id number] 15:44:25 Test Item Value Reference Range Interpretation Comments POC-Glucose Meter (test 154 mg/dL 70-110 H : TE STED AT [facility] code = 1538) 9920 [facility], 770 30: Pharmacists/Techni maris ID = [id number] for Sorensen, Norma Lab Interpretation (test Abnormal code = 40006-9) [facility] [id number] 15:44:25 Test Item Value Reference Range Interpretation Comments POC-GLUCOSE METER 154 mg/dL 70-110 H : TESTED A T [facility] 6720 (BEAKER) (test code = H[place], 1538) [address]: Pharmacists/Techni maris ID = [id number] for Norma [place] BASIC METABOLIC [id number] 10:27:35 Test Item Value Reference Range Interpretation Comments SODIUM (BEAKER) 144 meq/L 136-145 (test code = 381) POTASSIUM 3.7 meq/L 3.5-5.1 (BEAKER) (test code = 379) CHLORIDE (BEAKER) 111 meq/L 98-107 H (test code = 382) CO2 (BEAKER) 28 meq/L 22-29 (test code = 355) BLOOD UREA 23 mg/dL 7-21 H NITROGEN (BEAKER) (test code = 354) CREATININE 2.88 mg/dL 0.57-1.25 H (BEAKER) (test code = 358) GLUCOSE RANDOM 87 mg/dL 70-105 (BEAKER) (test code = 652) CALCIUM (BEAKER) 8.2 mg/dL 8.4-10.2 L (test code = 697) EGFR (BEAKER) 22 Interpretatio n of eGFR (test code = [...] not appl icable for dialysis patien ts Pharmacists ID - MARCOCBC W/PLT COUNT & AUTO [id number] 10:15:23 Test Item Value Reference Range Interpretation Comments WHITE BLOOD CELL COUNT 6.8 K/ L 3.5-10.5 (BEAKER) (test code = 775) RED BLOOD CELL COUNT 2.96 M/ L 3.93-5.22 L (BEAKER) (test code = 761) HEMOGLOBIN (BEAKER) 7.6 GM/DL 11.2-15.7 L (test code = 410) HEMATOCRIT (BEAKER) 24.2 % 34.1-44.9 L (test code = 411) MEAN CORPUSCULAR VOLUME 82 fL 79-95 (BEAKER) (test code = 753) MEAN CORPUSCULAR 25.7 pg 25.6-32.2 HEMOGLOBIN (BEAKER) (test code = 751) MEAN CORPUSCULAR 31.4 GM/DL 32.2-35.5 L HEMOGLOBIN CONC (BEAKER) (test code = 752) RED CELL DISTRIBUTION 20.2 % 11.7-14.4 H WIDTH (BEAKER) (test code = 412) PLATELET COUNT (BEAKER) 84 K/CU MM 150-450 L (test code = 756) MEAN PLATELET VOLUME Unable to report due (BEAKER) (test code = to abn ormal Platelet 754) population distribution. NUCLEATED RED BLOOD 0 /100 WBC 0-0 CELLS (BEAKER) (test code = 413) NEUTROPHILS RELATIVE 72 % PERCENT (BEAKER) (test code = 429) LYMPHOCYTES RELATIVE 16 % PERCENT (BEAKER) (test code = 430) MONOCYTES RELATIVE 8 % PERCENT (BEAKER) (test code = 431) EOSINOPHILS RELATIVE 3 % PERCENT (BEAKER) (test code = 432) BASOPHILS RELATIVE 0 % PERCENT (BEAKER) (test code = 437) NEUTROPHILS ABSOLUTE 4.86 K/ L 1.56-6.13 COUNT (BEAKER) (test code = 670) LYMPHOCYTES ABSOLUTE 1.09 K/ L 1.18-3.74 L COUNT (BEAKER) (test code = 414) MONOCYTES ABSOLUTE 0.51 K/ L 0.24-0.36 H COUNT (BEAKER) (test code = 415) EOSINOPHILS ABSOLUTE 0.20 K/ L 0.04-0.36 COUNT (BEAKER) (test code = 416) BASOPHILS ABSOLUTE 0.01 K/ L 0.01-0.08 COUNT (BEAKER) (test code = 417) IMMATURE 1.20 % 0.00-1.00 H GRANULOCYTES-RELATIVE PERCENT (BEAKER) (test code = 2801) POCT-GLUCOSE [id number] 07:47:40 Test Item Value Reference Range Interpretation Comments POC-GLUCOSE METER 93 mg/dL 70-110 : TESTED Ashok Cage [facility] 6720 (BEAKER) (test code = HENRRY MARC RI, 1538) [id number]: Pharmacists/Techni maris ID = [id number] for Cherelle Izquierdo POCT-GLUCOSE [id number] 20:50:09 Test Item Value Reference Range Interpretation Comments POC-GLUCOSE METER 108 mg/dL 70-110 : TESTED A Niles [facility] 6720 (FELIPE) (test code = HENRRY MARC RI, 1538) [id number]: Pharmacists/Techni maris ID = [id number] for Amanda Hamm, TUNNELED CATHETER [id number] 17:14:00Please DC QuintonPlaced in IRReason for exam:->need hdIs the patient ?->NoWhen was patient's last menstrual cycle?->[facility] 1990 Sex: FFINAL REPORT Conversion of nontunneled hemodialysis catheter to tunneled hemodialysis catheter. History: Renal failure. Modality: Fluoroscopy. Sedation: Moderate sedation was administered. 1 mg of Versed and 50 mcg of fentanyl IV was used for moderate sedation monitored under my direction. Total intra-service time of sedation was 15 minutes. The patient's vital signs were monitored throughout the procedure and recorded in the patient's medical record by the nurse. Build Master: Chandu Zamora M.D. Approach: Right internal jugular vein Estimated blood loss: < 5 cc. Specimen: None. Fluoroscopy Time: 0.6 min. Dose (Ka,r): 4.5 mGy. Technique: Informed written consent was obtained. Discussion of risks, benefits, and alternatives were made with the patient. The patient expressed understanding and agreed to proceed. All elements maximal sterile barrier technique was utilized for this procedure, including utilization of sterile scrub solution for skin prep, a large sterile sheet to cover the areas of the patient that were not prepped, and hand hygiene, mask, head covering, and sterile gown for performing radiologist and scrub technologist. A match maker film was obtained which revealed nontunneled right IJ HD catheter in appropriate position. The bilateral ports were aspirated. An 035 wire was introduced through the catheter and Station within the IVC. A subcutaneous tunnel wascreated in the right anterior chest wall by blunt dissection. A 19 cm tip to cuff 15.5 [place] 2 catheter was brought through the tunnel. The initial nontunneled catheter was removed over wire a peel-away sheath was placed in the right IJ vein and the new hemodialysis catheter was advanced through the sheath, with its distal tip terminating in the superior right atrium. The peel- away sheath was removed. The ports were flushed and aspirated easily following placement. The catheter was suturedto the skin to secure its placement. The small jugular incision site was closed using absorbable suture. A resorbable purse-string suture was placed at the catheter exit site. Vital signs were monitored throughout the procedure by a nurse, and remained stable. The patient tolerated the procedure well and left the department in the same condition. Results: Spot radiograph of the chest demonstrates thenew dialysis catheter to lie in the expected position with its tip overlying the superior right atrium. Impression: Successful, uncomplicated conversion of right IJ nontunneled hemodialysis catheter to tunneled hemodialysis catheter using fluoroscopic guidance and conscious sedation. Signed: Chandu Zamora MDReport Verified Date/Time: 09/07/2022 17:14:28 Reading Location: [place] [address] Angio Body Reading Room HROMBIN TIME/[id number] 15:40:32 Test Item Value Reference Range Interpretation Comments PROTIME (BEAKER) 14.6 seconds 11.9-14.2 H (test code = 759) INR (BEAKER) (test 1.21 See_Comment [Automat ed message] code = 370) The system avocadostore generated this result transmitted ref erence range: <=5.90. The reference range was not used to int erpret this result as normal/abnormal . RECOMMENDED COUMADIN/WARFARIN INR THERAPY RANGESSTANDARD DOSE: 2.0 - 3.0 Includes: PROPHYLAXIS for venous thrombosis, systemic embolization; TREATMENT for venous thrombosis and/or pulmonary embolus.HIGH RISK: Target INR is 2.5-3.5 for patients with mechanical heart valves.COMPREHENSIVE METABOLIC PANEL 2022-09-07 09:46:16 Test Item Value Reference Range Interpretation Comments TOTAL PROTEIN 4.6 gm/dL 6.0-8.3 L (BEAKER) (test code = 770) ALBUMIN (BEAKER) 2.8 g/dL 3.5-5.0 L (test code = 1145) ALKALINE 109 U/L 40-150 PHOSPHATASE (BEAKER) (test code = 346) BILIRUBIN TOTAL 0.3 mg/dL 0.2-1.2 (BEAKER) (test code = 377) SODIUM (BEAKER) 143 meq/L 136-145 (test code = 381) POTASSIUM (BEAKER) 3.9 meq/L 3.5-5.1 (test code = 379) CHLORIDE (BEAKER) 109 meq/L 98-107 H (test code = 382) CO2 (BEAKER) (test 26 meq/L 22-29 code = 355) BLOOD UREA 50 mg/dL 7-21 H NITROGEN (BEAKER) (test code = 354) CREATININE 4.52 mg/dL 0.57-1.25 H (BEAKER) (test code = 358) GLUCOSE RANDOM 98 mg/dL 70-105 (BEAKER) (test code = 652) CALCIUM (BEAKER) 8.0 mg/dL 8.4-10.2 L (test code = 697) AST (SGOT) 11 U/L 5-34 (BEAKER) (test code = 353) ALT (SGPT) 19 U/L 6-55 (BEAKER) (test code = 347) EGFR (BEAKER) 13 Interpretatio n of eGFR (test code = [...] not appl icable for dialysis patien ts Pharmacists ID - CINDY [id number] 09:37:07 Test Item Value Reference Range Interpretation Comments MAGNESIUM (BEAKER) (test code = 1.9 mg/dL 1.6-2.6 627) Pharmacists ID - CINDY [id number] 09:37:07 Test Item Value Reference Range Interpretation Comments PHOSPHORUS (BEAKER) (test code = 2.9 mg/dL 2.3-4.7 604) Pharmacists ID - CINDY Ltotal [id number] 09:33:03 Test Item Value Reference Range Interpretation Comments Scan Result (test code = See scanned report [id number]) BRE (test code = BRE) See scanned report [id number] 09:33:03 Test Item Value Reference Range Interpretation Comments SCAN RESULT (test code = See scanned report [id number]) See scanned reportCBC W/PLT COUNT & AUTO [id number] 04:09:43 Test Item Value Reference Range Interpretation Comments WHITE BLOOD CELL COUNT 6.3 K/ L 3.5-10.5 (BEAKER) (test code = 775) RED BLOOD CELL COUNT 2.88 M/ L 3.93-5.22 L (BEAKER) (test code = 761) HEMOGLOBIN (BEAKER) 7.4 GM/DL 11.2-15.7 L (test code = 410) HEMATOCRIT (BEAKER) 23.7 % 34.1-44.9 L (test code = 411) MEAN CORPUSCULAR VOLUME 82 fL 79-95 (BEAKER) (test code = 753) MEAN CORPUSCULAR 25.7 pg 25.6-32.2 HEMOGLOBIN (BEAKER) (test code = 751) MEAN CORPUSCULAR 31.2 GM/DL 32.2-35.5 L HEMOGLOBIN CONC (BEAKER) (test code = 752) RED CELL DISTRIBUTION 20.4 % 11.7-14.4 H WIDTH (BEAKER) (test code = 412) PLATELET COUNT (BEAKER) 88 K/CU MM 150-450 L (test code = 756) MEAN PLATELET VOLUME Unable to report due (BEAKER) (test code = to abn ormal Platelet 754) population distribution. NUCLEATED RED BLOOD 0 /100 WBC 0-0 CELLS (BEAKER) (test code = 413) NEUTROPHILS RELATIVE 86 % PERCENT (BEAKER) (test code = 429) LYMPHOCYTES RELATIVE 5 % PERCENT (BEAKER) (test code = 430) MONOCYTES RELATIVE 7 % PERCENT (BEAKER) (test code = 431) EOSINOPHILS RELATIVE 0 % PERCENT (BEAKER) (test code = 432) BASOPHILS RELATIVE 0 % PERCENT (BEAKER) (test code = 437) NEUTROPHILS ABSOLUTE 5.40 K/ L 1.56-6.13 COUNT (BEAKER) (test code = 670) LYMPHOCYTES ABSOLUTE 0.34 K/ L 1.18-3.74 L COUNT (BEAKER) (test code = 414) MONOCYTES ABSOLUTE 0.42 K/ L 0.24-0.36 H COUNT (BEAKER) (test code = 415) EOSINOPHILS ABSOLUTE 0.00 K/ L 0.04-0.36 L COUNT (BEAKER) (test code = 416) BASOPHILS ABSOLUTE 0.01 K/ L 0.01-0.08 COUNT (BEAKER) (test code = 417) IMMATURE 1.80 % 0.00-1.00 H GRANULOCYTES-RELATIVE PERCENT (BEAKER) (test code = 2801) POCT-GLUCOSE [id number] 20:12:53 Test Item Value Reference Range Interpretation Comments POC-GLUCOSE METER 161 mg/dL 70-110 H : TESTED A T [facility] 6720 (BEAKER) (test code = [facility], 153) [address]: Pharmacists/Techni maris ID = [id number] for Amanda Hamm POCT-GLUCOSE [id number] 16:11:47 Test Item Value Reference Range Interpretation Comments POC-GLUCOSE METER 156 mg/dL 70-110 H : TESTED A T [facility] 6720 (BEAKER) (test code = [facility], 153) [address]: Pharmacists/Techni maris ID = [id number] for Cherelle Diaz POCT-GLUCOSE [id number] 11:15:21 Test Item Value Reference Range Interpretation Comments POC-GLUCOSE METER 99 mg/dL 70-110 : TESTED A T [facility] 6720 (BEAKER) (test code = [facility] [place], 1538) [address]: Pharmacists/Techni maris ID = [id number] for Cherelle Izquierdo POCT-GLUCOSE [id number] 07:23:44 Test Item Value Reference Range Interpretation Comments POC-GLUCOSE METER 121 mg/dL 70-110 H : TESTED A T [facility] 6720 (BEAKER) (test code = [facility], 1538) [address]: Pharmacists/Techni maris ID = [id number] for Cherelle Diaz COMPREHENSIVE METABOLIC [id number] 05:28:58 Test Item Value Reference Range Interpretation Comments TOTAL PROTEIN 4.8 gm/dL 6.0-8.3 L (BEAKER) (test code = 770) ALBUMIN (BEAKER) 2.9 g/dL 3.5-5.0 L (test code = 1145) ALKALINE 101 U/L 40-150 PHOSPHATASE (BEAKER) (test code = 346) BILIRUBIN TOTAL 0.3 mg/dL 0.2-1.2 (BEAKER) (test code = 377) SODIUM (BEAKER) 140 meq/L 136-145 (test code = 381) POTASSIUM (BEAKER) 3.9 meq/L 3.5-5.1 (test code = 379) CHLORIDE (BEAKER) 106 meq/L 98-107 (test code = 382) CO2 (BEAKER) (test 24 meq/L 22-29 code = 355) BLOOD UREA 36 mg/dL 7-21 H NITROGEN (BEAKER) (test code = 354) CREATININE 3.99 mg/dL 0.57-1.25 H (BEAKER) (test code = 358) GLUCOSE RANDOM 146 mg/dL 70-105 H (BEAKER) (test code = 652) CALCIUM (BEAKER) 8.0 mg/dL 8.4-10.2 L (test code = 697) AST (SGOT) 12 U/L 5-34 (BEAKER) (test code = 353) ALT (SGPT) 19 U/L 6-55 (BEAKER) (test code = 347) EGFR (BEAKER) 15 Interpretatio n of eGFR (test code = [...] not appl icable for dialysis patien ts Pharmacists ID - CINDY [id number] 04:05:28 Test Item Value Reference Range Interpretation Comments PHOSPHORUS (BEAKER) (test code = 3.4 mg/dL 2.3-4.7 604) Pharmacists ID - CINDY [id number] 04:05:27 Test Item Value Reference Range Interpretation Comments MAGNESIUM (BEAKER) (test code = 1.9 mg/dL 1.6-2.6 627) Pharmacists ID - CINDY LCBC W/PLT COUNT & AUTO [id number] 03:18:08 Test Item Value Reference Range Interpretation Comments WHITE BLOOD CELL COUNT 5.7 K/ L 3.5-10.5 (BEAKER) (test code = 775) RED BLOOD CELL COUNT 3.03 M/ L 3.93-5.22 L (BEAKER) (test code = 761) HEMOGLOBIN (BEAKER) 7.6 GM/DL 11.2-15.7 L (test code = 410) HEMATOCRIT (BEAKER) 24.8 % 34.1-44.9 L (test code = 411) MEAN CORPUSCULAR VOLUME 82 fL 79-95 (BEAKER) (test code = 753) MEAN CORPUSCULAR 25.1 pg 25.6-32.2 L HEMOGLOBIN (BEAKER) (test code = 751) MEAN CORPUSCULAR 30.6 GM/DL 32.2-35.5 L HEMOGLOBIN CONC (BEAKER) (test code = 752) RED CELL DISTRIBUTION 19.9 % 11.7-14.4 H WIDTH (BEAKER) (test code = 412) PLATELET COUNT (BEAKER) 76 K/CU MM 150-450 L (test code = 756) MEAN PLATELET VOLUME Unable to report due (BEAKER) (test code = to abn ormal Platelet 754) population distribution. NUCLEATED RED BLOOD 0 /100 WBC 0-0 CELLS (BEAKER) (test code = 413) NEUTROPHILS RELATIVE 87 % PERCENT (BEAKER) (test code = 429) LYMPHOCYTES RELATIVE 5 % PERCENT (BEAKER) (test code = 430) MONOCYTES RELATIVE 6 % PERCENT (BEAKER) (test code = 431) EOSINOPHILS RELATIVE 0 % PERCENT (BEAKER) (test code = 432) BASOPHILS RELATIVE 0 % PERCENT (BEAKER) (test code = 437) NEUTROPHILS ABSOLUTE 4.94 K/ L 1.56-6.13 COUNT (BEAKER) (test code = 670) LYMPHOCYTES ABSOLUTE 0.27 K/ L 1.18-3.74 L COUNT (BEAKER) (test code = 414) MONOCYTES ABSOLUTE 0.34 K/ L 0.24-0.36 COUNT (BEAKER) (test code = 415) EOSINOPHILS ABSOLUTE 0.00 K/ L 0.04-0.36 L COUNT (BEAKER) (test code = 416) BASOPHILS ABSOLUTE 0.01 K/ L 0.01-0.08 COUNT (BEAKER) (test code = 417) IMMATURE 1.60 % 0.00-1.00 H GRANULOCYTES-RELATIVE PERCENT (BEAKER) (test code = 2801) CALCIUM, [id number] 03:03:06 Test Item Value Reference Range Interpretation Comments CALCIUM IONIZED (BEAKER) (test 0.96 mmol/L 1.12-1.27 L code = 698) PH, BLOOD (BEAKER) (test code = 7.45 1810) POCT-GLUCOSE [id number] 21:06:42 Test Item Value Reference Range Interpretation Comments POC-GLUCOSE METER 167 mg/dL 70-110 H : TESTED A T [facility] 6720 (BEAKER) (test code = [place], 1538) [address]: Pharmacists/Techni maris ID = [id number] for Licha Roselyn fidelizzy SARS-CoV2/RT-PCR (Asymptomatic ONLY)2022-09-05 18:39:41 Test Item Value Reference Interpretation Comments Range SARS-COV2/RT-PCR Negative Negative The SARS-Co V-2 (test code = target nucleic 20209-2) acids are not detected in thi s [...] (test code = This test has been BER) authorized by FDA under an EUA for [...] revoked sooner. Fact Sheet for Healthcare Providers: https://www.[facility]/Documents/Xp ert%20Xpress%20SAR S%20CoV-2/Fact%20S heets/302-3802%20S ARS-COV-2%20HEALTH CARE%20PROVIDERS%2 0FACT%20SHEET.pdf Fact Sheet for Healthcare Patients: https://www.[facility]/Documents/Xp ert%20Xpress%20SAR S%20CoV-2/Fact%20S heets/302-3801%20S ARS-COV-2%20PATIEN T%20FACT%20SHEET.p df Lab Interpretation Normal (test code = 18962-3) [facility])2022-09-05 18:39:41 Test Item Value Reference Range Interpretation Comments SARS-COV2/RT-PCR Negative Negative The SARS-Co V-2 target (test code = nucleic acids a re not 5838078) detected in thi s specimen. Negative result [...] revoked sooner. Fact Sheet for Healthcare Providers: https://www.[facility]/Documents/Xpert%20Xpress%20SARS%20CoV-2/Fact%20Sheets/302-3802%44ZKQE-JEI-6%2 0HEALTHCARE%20PROVIDERS%20FACT%20SHEET.pdf Fact Sheet for Healthcare Patients: https://www.[facility]/Documents/Xpert%20X press%20SARS%20CoV-2/Fact%20Sheets/302-3801%76DUCR-UNO-3%20PATIENT%20FACT%20SHEE T.pdfPOCT-GLUCOSE [id number] 17:48:10 Test Item Value Reference Range Interpretation Comments POC-GLUCOSE METER 135 mg/dL 70-110 H : TESTED A T [facility] 6720 ([employer]) (test code = [facility], 1538) [address]: Pharmacists/Techni maris ID = [id number] for Gordo(contract )Elisa POCT-GLUCOSE [id number] 12:04:40 Test Item Value Reference Range Interpretation Comments POC-GLUCOSE METER 97 mg/dL 70-110 : TESTED A T [facility] 6720 ([employer]) (test code = [facility], 1538) 510[address]: Pharmacists/Techni maris ID = [id number] for Gordo(contract )IndraElisa POCT-GLUCOSE [id number] 23:16:56 Test Item Value Reference Range Interpretation Comments POC-GLUCOSE METER 119 mg/dL 70-110 H : TESTED A T [facility] 6720 (BEAKER) (test code = [facility], 1538) 15[address]: Pharmacists/Techni maris ID = [id number] for Shelton Florez POCT-GLUCOSE [id number] 08:02:44 Test Item Value Reference Range Interpretation Comments POC-GLUCOSE METER 171 mg/dL 70-110 H : TESTED A T [facility] 6720 (BEAKER) (test code = [facility], 1538) [address]: Pharmacists/Techni maris ID = [id number] for Jeanette Flaherty COMPREHENSIVE METABOLIC [id number] 05:13:49 Test Item Value Reference Range Interpretation Comments TOTAL PROTEIN 4.6 gm/dL 6.0-8.3 L (BEAKER) (test code = 770) ALBUMIN (BEAKER) 2.7 g/dL 3.5-5.0 L (test code = 1145) ALKALINE 96 U/L 40-150 PHOSPHATASE (BEAKER) (test code = 346) BILIRUBIN TOTAL 0.4 mg/dL 0.2-1.2 (BEAKER) (test code = 377) SODIUM (BEAKER) 138 meq/L 136-145 (test code = 381) POTASSIUM (BEAKER) 3.9 meq/L 3.5-5.1 (test code = 379) CHLORIDE (BEAKER) 105 meq/L 98-107 (test code = 382) CO2 (BEAKER) (test 26 meq/L 22-29 code = 355) BLOOD UREA 43 mg/dL 7-21 H NITROGEN (BEAKER) (test code = 354) CREATININE 3.67 mg/dL 0.57-1.25 H (BEAKER) (test code = 358) GLUCOSE RANDOM 177 mg/dL 70-105 H (BEAKER) (test code = 652) CALCIUM (BEAKER) 7.6 mg/dL 8.4-10.2 L (test code = 697) AST (SGOT) 12 U/L 5-34 (BEAKER) (test code = 353) ALT (SGPT) 24 U/L 6-55 (BEAKER) (test code = 347) EGFR (BEAKER) 16 Interpretatio n of eGFR (test code = [...] not appl icable for dialysis patien ts Pharmacists ID - CINDY LHEPATITIS B SURFACE [id number] 05:00:52 Test Item Value Reference Range Interpretation Comments HEPATITIS B SURFACE ANTIGEN (2) Nonreactive Nonreactive (BEAKER) (test code = 2585) Specimen is considered negative for HBsAg.[id number] 05:00:33 Test Item Value Reference Range Interpretation Comments PHOSPHORUS (BEAKER) (test code = 4.2 mg/dL 2.3-4.7 604) Pharmacists ID - CINDY [id number] 05:00:32 Test Item Value Reference Range Interpretation Comments MAGNESIUM (BEAKER) (test code = 1.9 mg/dL 1.6-2.6 627) Pharmacists ID - CINDY LCBC W/PLT COUNT & AUTO [id number] 04:33:47 Test Item Value Reference Range Interpretation Comments WHITE BLOOD CELL COUNT 6.3 K/ L 3.5-10.5 (BEAKER) (test code = 775) RED BLOOD CELL COUNT 3.06 M/ L 3.93-5.22 L (BEAKER) (test code = 761) HEMOGLOBIN (BEAKER) 7.7 GM/DL 11.2-15.7 L (test code = 410) HEMATOCRIT (BEAKER) 24.2 % 34.1-44.9 L (test code = 411) MEAN CORPUSCULAR VOLUME 79 fL 79-95 (BEAKER) (test code = 753) MEAN CORPUSCULAR 25.2 pg 25.6-32.2 L HEMOGLOBIN (BEAKER) (test code = 751) MEAN CORPUSCULAR 31.8 GM/DL 32.2-35.5 L HEMOGLOBIN CONC (BEAKER) (test code = 752) RED CELL DISTRIBUTION 19.9 % 11.7-14.4 H WIDTH (BEAKER) (test code = 412) PLATELET COUNT (BEAKER) 62 K/CU MM 150-450 L (test code = 756) MEAN PLATELET VOLUME Unable to report due (BEAKER) (test code = to abn ormal Platelet 754) population distribution. NUCLEATED RED BLOOD 0 /100 WBC 0-0 CELLS (BEAKER) (test code = 413) NEUTROPHILS RELATIVE 87 % PERCENT (BEAKER) (test code = 429) LYMPHOCYTES RELATIVE 5 % PERCENT (BEAKER) (test code = 430) MONOCYTES RELATIVE 6 % PERCENT (BEAKER) (test code = 431) EOSINOPHILS RELATIVE 0 % PERCENT (BEAKER) (test code = 432) BASOPHILS RELATIVE 0 % PERCENT (BEAKER) (test code = 437) NEUTROPHILS ABSOLUTE 5.49 K/ L 1.56-6.13 COUNT (BEAKER) (test code = 670) LYMPHOCYTES ABSOLUTE 0.34 K/ L 1.18-3.74 L COUNT (BEAKER) (test code = 414) MONOCYTES ABSOLUTE 0.40 K/ L 0.24-0.36 H COUNT (BEAKER) (test code = 415) EOSINOPHILS ABSOLUTE 0.00 K/ L 0.04-0.36 L COUNT (BEAKER) (test code = 416) BASOPHILS ABSOLUTE 0.01 K/ L 0.01-0.08 COUNT (BEAKER) (test code = 417) IMMATURE 1.10 % 0.00-1.00 H GRANULOCYTES-RELATIVE PERCENT (BEAKER) (test code = 2801) CALCIUM, [id number] 04:22:11 Test Item Value Reference Range Interpretation Comments CALCIUM IONIZED (BEAKER) (test 0.96 mmol/L 1.12-1.27 L code = 698) PH, BLOOD (BEAKER) (test code = 7.45 1810) POCT-GLUCOSE [id number] 21:33:55 Test Item Value Reference Range Interpretation Comments POC-GLUCOSE METER 158 mg/dL 70-110 H : TESTED A T [facility] 6720 (BEAKER) (test code [facility], = 1538) [address]: Pharmacists/Techni maris ID = [id number] for Pipo (contract)Yemi CBC W/PLT COUNT & AUTO [id number] 21:17:53 Test Item Value Reference Range Interpretation Comments WHITE BLOOD CELL COUNT 6.6 K/ L 3.5-10.5 (BEAKER) (test code = 775) RED BLOOD CELL COUNT 3.15 M/ L 3.93-5.22 L (BEAKER) (test code = 761) HEMOGLOBIN (BEAKER) 7.9 GM/DL 11.2-15.7 L (test code = 410) HEMATOCRIT (BEAKER) 25.0 % 34.1-44.9 L (test code = 411) MEAN CORPUSCULAR VOLUME 79 fL 79-95 (BEAKER) (test code = 753) MEAN CORPUSCULAR 25.1 pg 25.6-32.2 L HEMOGLOBIN (BEAKER) (test code = 751) MEAN CORPUSCULAR 31.6 GM/DL 32.2-35.5 L HEMOGLOBIN CONC (BEAKER) (test code = 752) RED CELL DISTRIBUTION 20.1 % 11.7-14.4 H WIDTH (BEAKER) (test code = 412) PLATELET COUNT (BEAKER) 64 K/CU MM 150-450 L (test code = 756) MEAN PLATELET VOLUME Unable to report due (BEAKER) (test code = to abn ormal Platelet 754) population distribution. NUCLEATED RED BLOOD 0 /100 WBC 0-0 CELLS (BEAKER) (test code = 413) NEUTROPHILS RELATIVE 89 % PERCENT (BEAKER) (test code = 429) LYMPHOCYTES RELATIVE 4 % PERCENT (BEAKER) (test code = 430) MONOCYTES RELATIVE 6 % PERCENT (BEAKER) (test code = 431) EOSINOPHILS RELATIVE 0 % PERCENT (BEAKER) (test code = 432) BASOPHILS RELATIVE 0 % PERCENT (BEAKER) (test code = 437) NEUTROPHILS ABSOLUTE 5.90 K/ L 1.56-6.13 COUNT (BEAKER) (test code = 670) LYMPHOCYTES ABSOLUTE 0.27 K/ L 1.18-3.74 L COUNT (BEAKER) (test code = 414) MONOCYTES ABSOLUTE 0.39 K/ L 0.24-0.36 H COUNT (BEAKER) (test code = 415) EOSINOPHILS ABSOLUTE 0.00 K/ L 0.04-0.36 L COUNT (BEAKER) (test code = 416) BASOPHILS ABSOLUTE 0.00 K/ L 0.01-0.08 L COUNT (BEAKER) (test code = 417) IMMATURE 0.90 % 0.00-1.00 GRANULOCYTES-RELATIVE PERCENT (BEAKER) (test code = 2801) POCT-GLUCOSE [id number] 21:13:26 Test Item Value Reference Range Interpretation Comments POC-GLUCOSE METER 160 mg/dL 70-110 H : TESTED A T [facility] 6720 (BEAKER) (test code = [facility], 1538) [address]26[address]: Pharmacists/Techni maris ID = [id number] for ERIC BOATENG BLOOD [id number] 15:09:16 Test Item Value Reference Range Interpretation Comments CULTURE (BEAKER) (test No growth in 5 days code = 1095) The specimen volume collected for this blood culture was below the optimum (10 mL per bottle or 20 mL total). Use of lower volumes may adversely affect recovery and/or detection times of some organisms.BLOOD [id number] 15:09:15 Test Item Value Reference Range Interpretation Comments CULTURE (BEAKER) (test No growth in 5 days code = 1095) The specimen volume collected for this blood culture was below the optimum (10 mL per bottle or 20 mL total). Use of lower volumes may adversely affect recovery and/or detection times of some organisms.POCT-GLUCOSE [id number] 12:40:47 Test Item Value Reference Range Interpretation Comments POC-GLUCOSE METER 143 mg/dL 70-110 H : TESTED A T [facility] 6720 (BEAKER) (test code = [facility], 1538) 60[address]: Pharmacists/Techni maris ID = [id number] for SHELLEY DUNHAM POCT-GLUCOSE [id number] 08:12:52 Test Item Value Reference Range Interpretation Comments POC-GLUCOSE METER 140 mg/dL 70-110 H : TESTED A T [facility] 6720 (BEAKER) (test code = [facility], 1538) 990[address]: Pharmacists/Techni maris ID = [id number] for Sheri Pozo COMPREHENSIVE METABOLIC [id number] 05:54:01 Test Item Value Reference Range Interpretation Comments TOTAL PROTEIN 4.5 gm/dL 6.0-8.3 L (BEAKER) (test code = 770) ALBUMIN (BEAKER) 2.5 g/dL 3.5-5.0 L (test code = 1145) ALKALINE 89 U/L 40-150 PHOSPHATASE (BEAKER) (test code = 346) BILIRUBIN TOTAL 0.4 mg/dL 0.2-1.2 (BEAKER) (test code = 377) SODIUM (BEAKER) 140 meq/L 136-145 (test code = 381) POTASSIUM (BEAKER) 4.0 meq/L 3.5-5.1 (test code = 379) CHLORIDE (BEAKER) 105 meq/L 98-107 (test code = 382) CO2 (BEAKER) (test 27 meq/L 22-29 code = 355) BLOOD UREA 32 mg/dL 7-21 H NITROGEN (BEAKER) (test code = 354) CREATININE 2.75 mg/dL 0.57-1.25 H (BEAKER) (test code = 358) GLUCOSE RANDOM 157 mg/dL 70-105 H (BEAKER) (test code = 652) CALCIUM (BEAKER) 7.7 mg/dL 8.4-10.2 L (test code = 697) AST (SGOT) 18 U/L 5-34 (BEAKER) (test code = 353) ALT (SGPT) 28 U/L 6-55 (BEAKER) (test code = 347) EGFR (BEAKER) 23 Interpretatio n of eGFR (test code = 1092) mL/min/1.[address] age Description sq m Result G1 Norm al or high >=90 G2 Mildly decreased 60-89 [...] not appl icable for dialysis patien ts Pharmacists ID - [id number] 05:52:45 Test Item Value Reference Range Interpretation Comments MAGNESIUM (BEAKER) (test code = 1.8 mg/dL 1.6-2.6 627) Pharmacists ID - [id number] 05:52:45 Test Item Value Reference Range Interpretation Comments PHOSPHORUS (BEAKER) (test code = 3.6 mg/dL 2.3-4.7 604) Pharmacists ID - MARCOCBC W/PLT COUNT & AUTO [id number] 05:26:50 Test Item Value Reference Range Interpretation Comments WHITE BLOOD CELL COUNT 7.3 K/ L 3.5-10.5 (BEAKER) (test code = 775) RED BLOOD CELL COUNT 2.60 M/ L 3.93-5.22 L (BEAKER) (test code = 761) HEMOGLOBIN (BEAKER) 6.3 GM/DL 11.2-15.7 L (test code = 410) HEMATOCRIT (BEAKER) 20.5 % 34.1-44.9 L (test code = 411) MEAN CORPUSCULAR VOLUME 79 fL 79-95 (BEAKER) (test code = 753) MEAN CORPUSCULAR 24.2 pg 25.6-32.2 L HEMOGLOBIN (BEAKER) (test code = 751) MEAN CORPUSCULAR 30.7 GM/DL 32.2-35.5 L HEMOGLOBIN CONC (BEAKER) (test code = 752) RED CELL DISTRIBUTION 22.5 % 11.7-14.4 H WIDTH (BEAKER) (test code = 412) PLATELET COUNT (BEAKER) 61 K/CU MM 150-450 L (test code = 756) MEAN PLATELET VOLUME Unable to report due (BEAKER) (test code = to abn ormal Platelet 754) population distribution. NUCLEATED RED BLOOD 0 /100 WBC 0-0 CELLS (BEAKER) (test code = 413) NEUTROPHILS RELATIVE 91 % PERCENT (BEAKER) (test code = 429) LYMPHOCYTES RELATIVE 4 % PERCENT (BEAKER) (test code = 430) MONOCYTES RELATIVE 4 % PERCENT (BEAKER) (test code = 431) EOSINOPHILS RELATIVE 0 % PERCENT (BEAKER) (test code = 432) BASOPHILS RELATIVE 0 % PERCENT (BEAKER) (test code = 437) NEUTROPHILS ABSOLUTE 6.61 K/ L 1.56-6.13 H COUNT (BEAKER) (test code = 670) LYMPHOCYTES ABSOLUTE 0.29 K/ L 1.18-3.74 L COUNT (BEAKER) (test code = 414) MONOCYTES ABSOLUTE 0.29 K/ L 0.24-0.36 COUNT (BEAKER) (test code = 415) EOSINOPHILS ABSOLUTE 0.01 K/ L 0.04-0.36 L COUNT (BEAKER) (test code = 416) BASOPHILS ABSOLUTE 0.00 K/ L 0.01-0.08 L COUNT (BEAKER) (test code = 417) IMMATURE 1.00 % 0.00-1.00 GRANULOCYTES-RELATIVE PERCENT (BEAKER) (test code = 2801) CALCIUM, [id number] 05:24:15 Test Item Value Reference Range Interpretation Comments CALCIUM IONIZED (BEAKER) (test 0.98 mmol/L 1.12-1.27 L code = 698) PH, BLOOD (BEAKER) (test code = 7.45 1810) POCT-GLUCOSE [id number] 21:15:59 Test Item Value Reference Range Interpretation Comments POC-GLUCOSE METER 97 mg/dL 70-110 : TESTED A T [facility] 6720 (AKER) (test code [facility], = 1538) [id number]: Pharmacists/Techni maris ID = [id number] for Pipo (contract) [facility] zaid POCT-GLUCOSE [id number] 16:36:17 Test Item Value Reference Range Interpretation Comments POC-GLUCOSE METER 155 mg/dL 70-110 H : TESTED A T [facility] 6720 (BEAKER) (test code = [facility], 1538) [id number]: Pharmacists/Techni maris ID = [id number] for Cu tanyaikinMegane HEPARIN [id number] 12:40:23 Test Item Value Reference Range Interpretation Comments HEPARIN ANTIBODY (BEAKER) (test code Negative Negative = 646) HEPARIN ANTIBODY OD (BEAKER) (test 0.250 <0.400 code = 2659) 4T TOTAL SCORE (AKER) (test code = 5 3415) Probability of HIT based on scoring system: 6-8 = High probability; 4-5 = intermediate probability; 0-3 = low probabilityPOCT-GLUCOSE [id number] 08:09:21 Test Item Value Reference Range Interpretation Comments POC-GLUCOSE METER 198 mg/dL 70-110 H : TESTED A T [facility] 6720 (BEAKER) (test code = [facility], 1538) 140[address]: Pharmacists/Techni maris ID = [id number] for Cu nnikin, Aldenjae [id number] 06:53:03 Test Item Value Reference Range Interpretation Comments FERRITIN (BEAKER) (test code = 3159.19 ng/mL 5.00-275.00 H 361) Pharmacists ID - HENRY GOperator ID - HENRY GPROTHROMBIN TIME/[id number] 06:15:57 Test Item Value Reference Range Interpretation Comments PROTIME (BEAKER) 15.2 seconds 11.9-14.2 H (test code = 759) INR (BEAKER) (test 1.28 See_Comment [Automat ed message] code = 370) The system avocadostore generated this result transmitted ref erence range: <=5.90. The reference range was not used to int erpret this result as normal/abnormal . RECOMMENDED COUMADIN/WARFARIN INR THERAPY RANGESSTANDARD DOSE: 2.0 - 3.0 Includes: PROPHYLAXIS for venous thrombosis, systemic embolization; TREATMENT for venous thrombosis and/or pulmonary embolus.HIGH RISK: Target INR is 2.5-3.5 for patients with mechanical heart valves.CBC W/PLT COUNT & AUTO [id number] 06:08:37 Test Item Value Reference Range Interpretation Comments WHITE BLOOD CELL COUNT 9.1 K/ L 3.5-10.5 (BEAKER) (test code = 775) RED BLOOD CELL COUNT 2.78 M/ L 3.93-5.22 L (BEAKER) (test code = 761) HEMOGLOBIN (BEAKER) 6.7 GM/DL 11.2-15.7 L (test code = 410) HEMATOCRIT (BEAKER) 21.5 % 34.1-44.9 L (test code = 411) MEAN CORPUSCULAR VOLUME 77 fL 79-95 L (BEAKER) (test code = 753) MEAN CORPUSCULAR 24.1 pg 25.6-32.2 L HEMOGLOBIN (BEAKER) (test code = 751) MEAN CORPUSCULAR 31.2 GM/DL 32.2-35.5 L HEMOGLOBIN CONC (BEAKER) (test code = 752) RED CELL DISTRIBUTION 23.0 % 11.7-14.4 H WIDTH (BEAKER) (test code = 412) PLATELET COUNT (BEAKER) 60 K/CU MM 150-450 L (test code = 756) MEAN PLATELET VOLUME Unable to report due (BEAKER) (test code = to abn ormal Platelet 754) population distribution. NUCLEATED RED BLOOD 0 /100 WBC 0-0 CELLS (BEAKER) (test code = 413) NEUTROPHILS RELATIVE 89 % PERCENT (BEAKER) (test code = 429) LYMPHOCYTES RELATIVE 4 % PERCENT (BEAKER) (test code = 430) MONOCYTES RELATIVE 6 % PERCENT (BEAKER) (test code = 431) EOSINOPHILS RELATIVE 0 % PERCENT (BEAKER) (test code = 432) BASOPHILS RELATIVE 0 % PERCENT (BEAKER) (test code = 437) NEUTROPHILS ABSOLUTE 8.06 K/ L 1.56-6.13 H COUNT (BEAKER) (test code = 670) LYMPHOCYTES ABSOLUTE 0.34 K/ L 1.18-3.74 L COUNT (BEAKER) (test code = 414) MONOCYTES ABSOLUTE 0.57 K/ L 0.24-0.36 H COUNT (BEAKER) (test code = 415) EOSINOPHILS ABSOLUTE 0.00 K/ L 0.04-0.36 L COUNT (BEAKER) (test code = 416) BASOPHILS ABSOLUTE 0.01 K/ L 0.01-0.08 COUNT (BEAKER) (test code = 417) IMMATURE 1.10 % 0.00-1.00 H GRANULOCYTES-RELATIVE PERCENT (BEAKER) (test code = 2801) BASIC METABOLIC [id number] 06:00:55 Test Item Value Reference Range Interpretation Comments SODIUM (BEAKER) 140 meq/L 136-145 (test code = 381) POTASSIUM 4.5 meq/L 3.5-5.1 (BEAKER) (test code = 379) CHLORIDE (BEAKER) 105 meq/L 98-107 (test code = 382) CO2 (BEAKER) 24 meq/L 22-29 (test code = 355) BLOOD UREA 56 mg/dL 7-21 H NITROGEN (BEAKER) (test code = 354) CREATININE 3.72 mg/dL 0.57-1.25 H (BEAKER) (test code = 358) GLUCOSE RANDOM 219 mg/dL 70-105 H (BEAKER) (test code = 652) CALCIUM (BEAKER) 7.4 mg/dL 8.4-10.2 L (test code = 697) EGFR (BEAKER) 16 Interpretatio n of eGFR (test code = [...] not appl icable for dialysis patien ts Pharmacists ID - HENRY GRANDA, TIBC, % SAT. (WITHOUT FERRITIN)2022-09-02 05:54:25 Test Item Value Reference Range Interpretation Comments IRON (BEAKER) (test code = 547) 132.0 ug/dL 40.0-160.0 TOTAL IRON BINDING CAPACITY 128 ug/dL 250-450 L (BEAKER) (test code = 769) IRON % SATURATION (2) (BEAKER) 103 % 20-55 H (test code = 2590) Pharmacists ID - HENRY GRETICULOCYTE [id number] 05:33:20 Test Item Value Reference Range Interpretation Comments RETICULOCYTE COUNT PCT (BEAKER) (test 1.2 % 0.5-1.7 code = 575) Pharmacists ID - [id number]-GLUCOSE [id number] 05:10:18 Test Item Value Reference Range Interpretation Comments POC-GLUCOSE METER 207 mg/dL 70-110 H : TESTED A T [facility] 6720 (BEAKER) (test code = [facility], 1538) 338[address]: Pharmacists/Techni maris ID = [id number] for Amanda Hamm POCT-GLUCOSE [id number] 23:45:28 Test Item Value Reference Range Interpretation Comments POC-GLUCOSE METER 186 mg/dL 70-110 H : TESTED A T [facility] 6720 (BEAKER) (test code = [facility], 153) 15850: Pharmacists/Techni maris ID = [id number] for Amanda Hamm ANG, NON-TUNNELED CATH >5 Y.O. [id number] 15:47:00Reason for exam:- >[facility] 1990 Sex: FFINAL REPORT Non-tunneled Dialysis Catheter Insertion History: Sheree for iHD Modality: Fluoroscopy and sonography. Sedation: None. Build Master: Lisa Ashraf MD. Survey Associate: None. Approach: Right internal jugular vein Estimated blood loss: < 5 cc. Specimen: None. Fluoroscopy Time: 0.5 min.Reference Air Kerma (Ka, r): 2.9 mGy. Technique: Informed written consent was obtained. Discussion of risks, benefits, and alternatives were made with the patient. The patient expressedunderstanding and agreed to proceed. A universal timeout was performed prior to starting the procedure. All elements maximal sterile barrier technique was utilized for this procedure, including utilization of sterile scrub solution for skin prep, a large sterile sheet to cover the areas of the patientthat were not prepped, and hand hygiene, mask, head covering, and sterile gown for performing radiologist and scrub technologist. Initial ultrasound images demonstrate patent and compressible right internal jugular, which was punctured under direct real-time ultrasound guidance with a micropuncture needle. An ultrasound image was saved to PACS. A microwire and sheath were placed. A 0.035 inch wire was placed through the sheath into the IVC. The tract was serially dilated. The 15 cm 14 [place] Schon XL catheter was placed over the wire with its distal tip terminating in the superior right atrium. Theports were flushed and aspirated easily following placement. The lumens were locked with heparin. The catheter was sutured to the skin to secure its placement. Vital signs were monitored throughout theprocedure by a nurse, and remained stable. The patient tolerated the procedure well and [facility] the same condition. Impression: Successful, uncomplicated placement of a right internal jugular non-tunneled dialysis catheter using sonographic and fluoroscopic guidance. The catheter is ready for immediate use. Signed: Lisa Ashraf MDReport Verified Date/Time: 09/01/2022 15:47:57 POCT-GLUCOSE [id number] 12:11:31 Test Item Value Reference Range Interpretation Comments POC-GLUCOSE METER 159 mg/dL 70-110 H : TESTED A T [facility] 6720 (BEAKER) (test code = [facility], 1538) 176[address]: Pharmacists/Techni maris ID = [id number] for Cherelle Diaz COMPREHENSIVE METABOLIC [id number] 05:55:40 Test Item Value Reference Range Interpretation Comments TOTAL PROTEIN 4.7 gm/dL 6.0-8.3 L (BEAKER) (test code = 770) ALBUMIN (BEAKER) 2.4 g/dL 3.5-5.0 L (test code = 1145) ALKALINE 90 U/L 40-150 PHOSPHATASE (BEAKER) (test code = 346) BILIRUBIN TOTAL 0.3 mg/dL 0.2-1.2 (BEAKER) (test code = 377) SODIUM (BEAKER) 141 meq/L 136-145 (test code = 381) POTASSIUM (BEAKER) 4.8 meq/L 3.5-5.1 (test code = 379) CHLORIDE (BEAKER) 106 meq/L 98-107 (test code = 382) CO2 (BEAKER) (test 23 meq/L 22-29 code = 355) BLOOD UREA 84 mg/dL 7-21 H NITROGEN (BEAKER) (test code = 354) CREATININE 4.85 mg/dL 0.57-1.25 H (BEAKER) (test code = 358) GLUCOSE RANDOM 174 mg/dL 70-105 H (BEAKER) (test code = 652) CALCIUM (BEAKER) 7.4 mg/dL 8.4-10.2 L (test code = 697) AST (SGOT) 13 U/L 5-34 (BEAKER) (test code = 353) ALT (SGPT) 35 U/L 6-55 (BEAKER) (test code = 347) EGFR (BEAKER) 12 Interpretatio n of eGFR (test code = [...] not appl icable for dialysis patien ts Pharmacists ID - [id number] 05:52:01 Test Item Value Reference Range Interpretation Comments MAGNESIUM (BEAKER) (test code = 1.9 mg/dL 1.6-2.6 627) Pharmacists ID - [id number] 05:52:01 Test Item Value Reference Range Interpretation Comments PHOSPHORUS (BEAKER) (test code = 5.8 mg/dL 2.3-4.7 H 604) Pharmacists ID - MYLAOCBC W/PLT COUNT & AUTO [id number] 05:39:31 Test Item Value Reference Range Interpretation Comments WHITE BLOOD CELL COUNT 10.4 K/ L 3.5-10.5 (BEAKER) (test code = 775) RED BLOOD CELL COUNT 2.82 M/ L 3.93-5.22 L (BEAKER) (test code = 761) HEMOGLOBIN (BEAKER) 7.0 GM/DL 11.2-15.7 L (test code = 410) HEMATOCRIT (BEAKER) 22.1 % 34.1-44.9 L (test code = 411) MEAN CORPUSCULAR VOLUME 78 fL 79-95 L (BEAKER) (test code = 753) MEAN CORPUSCULAR 24.8 pg 25.6-32.2 L HEMOGLOBIN (BEAKER) (test code = 751) MEAN CORPUSCULAR 31.7 GM/DL 32.2-35.5 L HEMOGLOBIN CONC (BEAKER) (test code = 752) RED CELL DISTRIBUTION 23.3 % 11.7-14.4 H WIDTH (BEAKER) (test code = 412) PLATELET COUNT (BEAKER) 60 K/CU MM 150-450 L (test code = 756) MEAN PLATELET VOLUME Unable to report due (BEAKER) (test code = to abn ormal Platelet 754) population distribution. NUCLEATED RED BLOOD 0 /100 WBC 0-0 CELLS (BEAKER) (test code = 413) NEUTROPHILS RELATIVE 94 % PERCENT (BEAKER) (test code = 429) LYMPHOCYTES RELATIVE 3 % PERCENT (BEAKER) (test code = 430) MONOCYTES RELATIVE 4 % PERCENT (BEAKER) (test code = 431) EOSINOPHILS RELATIVE 0 % PERCENT (BEAKER) (test code = 432) BASOPHILS RELATIVE 0 % PERCENT (BEAKER) (test code = 437) NEUTROPHILS ABSOLUTE 9.72 K/ L 1.56-6.13 H COUNT (BEAKER) (test code = 670) LYMPHOCYTES ABSOLUTE 0.26 K/ L 1.18-3.74 L COUNT (BEAKER) (test code = 414) MONOCYTES ABSOLUTE 0.37 K/ L 0.24-0.36 H COUNT (BEAKER) (test code = 415) EOSINOPHILS ABSOLUTE 0.00 K/ L 0.04-0.36 L COUNT (BEAKER) (test code = 416) BASOPHILS ABSOLUTE 0.00 K/ L 0.01-0.08 L COUNT (BEAKER) (test code = 417) IMMATURE 0.40 % 0.00-1.00 GRANULOCYTES-RELATIVE PERCENT (BEAKER) (test code = 2801) CALCIUM, [id number] 05:20:52 Test Item Value Reference Range Interpretation Comments CALCIUM IONIZED (BEAKER) (test 0.94 mmol/L 1.12-1.27 L code = 698) PH, BLOOD (BEAKER) (test code = 7.42 1810) POCT-GLUCOSE [id number] 04:49:13 Test Item Value Reference Range Interpretation Comments POC-GLUCOSE METER 172 mg/dL 70-110 H : TESTED A T [facility] 6720 (BEAKER) (test code = [facility], 1538) 827[address]: Pharmacists/Techni maris ID = [id number] for Navarro-Rachel, Amanda POCT-GLUCOSE [id number] 23:11:59 Test Item Value Reference Range Interpretation Comments POC-GLUCOSE METER 163 mg/dL 70-110 H : TESTED A T [facility] 6720 (BEAKER) (test code = [facility], 1538) 55838: Pharmacists/Techni maris ID = [id number] for Navarro-Rachel, Amanda POCT-GLUCOSE [id number] 17:28:53 Test Item Value Reference Range Interpretation Comments POC-GLUCOSE METER 185 mg/dL 70-110 H : TESTED A T [facility] 6720 (BEAKER) (test code = [facility] [place], 1538) 956[address]: Pharmacists/Techni maris ID = [id number] for ANITA CASANOVA MISCELLANEOUS LAB [id number] 13:13:46 Test Item Value Reference Range Interpretation Comments SCAN RESULT (test code = 8412368) POCT-GLUCOSE [id number] 12:39:36 Test Item Value Reference Range Interpretation Comments POC-GLUCOSE METER 169 mg/dL 70-110 H : TESTED A T [facility] 6720 (BEAKER) (test code = [facility] [place], 1538) 82430: Pharmacists/Techni maris ID = [id number] for ANITA CASANOVA [id number] 09:09:31 Test Item Value Reference Range Interpretation Comments SODIUM (BEAKER) (test 139 meq/L 136-145 code = 381) POTASSIUM (BEAKER) 5.7 meq/L 3.5-5.1 H Specimen moderately (test code = 379) hemolyzed CHLORIDE (BEAKER) 105 meq/L 98-107 (test code = 382) CO2 (BEAKER) (test 21 meq/L 22-29 L code = 355) Pharmacists ID - MARCOPROTHROMBIN [id number] 09:00:48 Test Item Value Reference Range Interpretation Comments PROTIME (BEAKER) 15.0 seconds 11.9-14.2 H (test code = 759) INR (BEAKER) (test 1.21 See_Comment [Automat ed message] code = 370) The system avocadostore generated this result transmitted ref erence range: <=5.90. The reference range was not used to int erpret this result as normal/abnormal . RECOMMENDED COUMADIN/WARFARIN INR THERAPY RANGESSTANDARD DOSE: 2.0 - 3.0 Includes: PROPHYLAXIS for venous thrombosis, systemic embolization; TREATMENT for venous thrombosis and/or pulmonary embolus.HIGH RISK: Target INR is 2.5-3.5 for patients with mechanical heart valves.POCT-GLUCOSE [id number] 08:03:51 Test Item Value Reference Range Interpretation Comments POC-GLUCOSE METER 170 mg/dL 70-110 H : TESTED A T [facility] 6720 (BEAKER) (test code = [facility] [place], 1538) 80[address]: Pharmacists/Techni maris ID = [id number] for ANITA CASANOVA BASIC METABOLIC [id number] 05:45:26 Test Item Value Reference Range Interpretation Comments SODIUM (BEAKER) 140 meq/L 136-145 (test code = 381) POTASSIUM 5.7 meq/L 3.5-5.1 H Specimen slight ly (BEAKER) (test hemolyzed code = 379) CHLORIDE (BEAKER) 108 meq/L 98-107 H (test code = 382) CO2 (BEAKER) 20 meq/L 22-29 L (test code = 355) BLOOD UREA 109 mg/dL 7-21 H NITROGEN (BEAKER) (test code = 354) CREATININE 5.81 mg/dL 0.57-1.25 H Specimen slight ly (BEAKER) (test hemolyzed code = 358) GLUCOSE RANDOM 156 mg/dL 70-105 H (BEAKER) (test code = 652) CALCIUM (BEAKER) 7.5 mg/dL 8.4-10.2 L (test code = 697) EGFR (BEAKER) 9 Interpretatio n of eGFR (test code = [...] not appl icable for dialysis patien ts Pharmacists ID - MARCOCBC W/PLT COUNT & AUTO [id number] 05:20:45 Test Item Value Reference Range Interpretation Comments WHITE BLOOD CELL COUNT 17.1 K/ L 3.5-10.5 H (BEAKER) (test code = 775) RED BLOOD CELL COUNT 3.02 M/ L 3.93-5.22 L (BEAKER) (test code = 761) HEMOGLOBIN (BEAKER) 7.4 GM/DL 11.2-15.7 L (test code = 410) HEMATOCRIT (BEAKER) 23.9 % 34.1-44.9 L (test code = 411) MEAN CORPUSCULAR VOLUME 79 fL 79-95 (BEAKER) (test code = 753) MEAN CORPUSCULAR 24.5 pg 25.6-32.2 L HEMOGLOBIN (BEAKER) (test code = 751) MEAN CORPUSCULAR 31.0 GM/DL 32.2-35.5 L HEMOGLOBIN CONC (BEAKER) (test code = 752) RED CELL DISTRIBUTION 24.2 % 11.7-14.4 H WIDTH (BEAKER) (test code = 412) PLATELET COUNT (BEAKER) 63 K/CU MM 150-450 L (test code = 756) MEAN PLATELET VOLUME Unable to report due (BEAKER) (test code = to abn ormal Platelet 754) population distribution. NUCLEATED RED BLOOD 0 /100 WBC 0-0 CELLS (BEAKER) (test code = 413) NEUTROPHILS RELATIVE 96 % PERCENT (BEAKER) (test code = 429) LYMPHOCYTES RELATIVE 1 % PERCENT (BEAKER) (test code = 430) MONOCYTES RELATIVE 2 % PERCENT (BEAKER) (test code = 431) EOSINOPHILS RELATIVE 0 % PERCENT (BEAKER) (test code = 432) BASOPHILS RELATIVE 0 % PERCENT (BEAKER) (test code = 437) NEUTROPHILS ABSOLUTE 16.43 K/ L 1.56-6.13 H COUNT (BEAKER) (test code = 670) LYMPHOCYTES ABSOLUTE 0.20 K/ L 1.18-3.74 L COUNT (BEAKER) (test code = 414) MONOCYTES ABSOLUTE 0.29 K/ L 0.24-0.36 COUNT (BEAKER) (test code = 415) EOSINOPHILS ABSOLUTE 0.00 K/ L 0.04-0.36 L COUNT (BEAKER) (test code = 416) BASOPHILS ABSOLUTE 0.02 K/ L 0.01-0.08 COUNT (BEAKER) (test code = 417) IMMATURE 0.80 % 0.00-1.00 GRANULOCYTES-RELATIVE PERCENT (BEAKER) (test code = 2801) POCT-GLUCOSE [id number] 22:42:39 Test Item Value Reference Range Interpretation Comments POC-GLUCOSE METER 184 mg/dL 70-110 H : TESTED A T [facility] 6720 (BEAKER) (test code = [facility], 1538) 107[address]: Pharmacists/Techni maris ID = [id number] for Nuria Gonzalez COMPLEMENT COMPONENT [id number] 19:52:00 Test Item Value Reference Range Interpretation Comments C4 COMPLEMENT (BEAKER) (test code = 14 mg/dL 15-57 L 394) Pharmacists ID - BSPOCT-GLUCOSE [id number] 16:49:23 Test Item Value Reference Range Interpretation Comments POC-GLUCOSE METER 205 mg/dL 70-110 H : TESTED A T [facility] 6720 (BEAKER) (test code [facility], = 1538) 54414: Pharmacists/Techni maris ID = [id number] for JILL RAY - ALIREZA JUAN LUIS POCT-GLUCOSE [id number] 12:56:12 Test Item Value Reference Range Interpretation Comments POC-GLUCOSE METER 127 mg/dL 70-110 H : TESTED A T [facility] 6720 (BEAKER) (test code [facility], = 1538) 14127: Pharmacists/Techni maris ID = [id number] for LATT FLOR - ALIREZA JUAN LUIS (CELLAVISION MANUAL DIFF)2022-08-30 08:28:51 Test Item Value Reference Range Interpretation Comments NEUTROPHILS - REL 96 % (CELLAVISION)(BEAKER) (test code = 2816) LYMPHOCYTES - REL 3 % (CELLAVISION)(BEAKER) (test code = 2817) MONOCYTES - REL 1 % (CELLAVISION)(BEAKER) (test code = 2818) NEUTROPHILS - ABS 21.79 K/ul 1.56-6.13 H (CELLAVISION)(BEAKER) (test code = 2830) LYMPHOCYTES - ABS 0.68 K/ul 1.18-3.74 L (CELLAVISION)(BEAKER) (test code = 2831) MONOCYTES - ABS 0.23 K/uL 0.24-0.36 L (CELLAVISION)(BEAKER) (test code = 2832) TOTAL COUNTED (BEAKER) (test code 100 = 1351) WBC MORPHOLOGY (BEAKER) (test Normal code = 487) PLT MORPHOLOGY (BEAKER) (test Normal code = 486) POLYCHROMATOPHILLIC RBCS(BEAKER) 1+ few (test code = 478) ANISOCYTOSIS (BEAKER) (test code 1+ few = 961) MICROCYTES (BEAKER) (test code = 1+ few 965) POIKILOCYTES (BEAKER) (test code 2+ moderate = 966) SCHISTOCYTES (BEAKER) (test code 2+ moderate = 765) ELLIPTOCYTES (BEAKER) (test code 1+ few = 962) OVALOCYTES (BEAKER) (test code = 2+ moderate 477) TEAR DROP CELLS (BEAKER) (test 1+ few code = 481) ARTIFACT (CELLAVISION)(BEAKER) Present (test code = 3432) HELMET CELLS 1+ few (CELLAVISION)(BEAKER) (test code = 3434) PLATELET CONCENTRATION Decreased (CELLAVISION)(BEAKER) (test code = 3438) Pharmacists ID - [id number] ID - Huong Tompkins comments: Slide comments: CBC W/PLT COUNT & AUTO [id number] 08:28:50 Test Item Value Reference Range Interpretation Comments WHITE BLOOD CELL COUNT 22.7 K/ L 3.5-10.5 H (BEAKER) (test code = 775) RED BLOOD CELL COUNT 3.23 M/ L 3.93-5.22 L (BEAKER) (test code = 761) HEMOGLOBIN (BEAKER) 7.8 GM/DL 11.2-15.7 L (test code = 410) HEMATOCRIT (BEAKER) 25.3 % 34.1-44.9 L (test code = 411) MEAN CORPUSCULAR VOLUME 78 fL 79-95 L (BEAKER) (test code = 753) MEAN CORPUSCULAR 24.1 pg 25.6-32.2 L HEMOGLOBIN (BEAKER) (test code = 751) MEAN CORPUSCULAR 30.8 GM/DL 32.2-35.5 L HEMOGLOBIN CONC (BEAKER) (test code = 752) RED CELL DISTRIBUTION 23.9 % 11.7-14.4 H WIDTH (BEAKER) (test code = 412) PLATELET COUNT (BEAKER) 60 K/CU MM 150-450 L (test code = 756) MEAN PLATELET VOLUME Unable to report due (BEAKER) (test code = to abn ormal Platelet 754) population distribution. NUCLEATED RED BLOOD 0 /100 WBC 0-0 CELLS (BEAKER) (test code = 413) POCT-GLUCOSE [id number] 07:51:04 Test Item Value Reference Range Interpretation Comments POC-GLUCOSE METER 90 mg/dL 70-110 : TESTED A T [facility] 6720 (BEAKER) (test code = [facility] [place], 1538) 07995: Pharmacists/Techni maris ID = [id number] for JUAN LUIS [place] BASIC METABOLIC [id number] 07:45:49 Test Item Value Reference Range Interpretation Comments SODIUM (BEAKER) 144 meq/L 136-145 (test code = 381) POTASSIUM 5.1 meq/L 3.5-5.1 (BEAKER) (test code = 379) CHLORIDE (BEAKER) 110 meq/L 98-107 H (test code = 382) CO2 (BEAKER) 21 meq/L 22-29 L (test code = 355) BLOOD UREA 97 mg/dL 7-21 H NITROGEN (BEAKER) (test code = 354) CREATININE 5.16 mg/dL 0.57-1.25 H (BEAKER) (test code = 358) GLUCOSE RANDOM 77 mg/dL 70-105 (BEAKER) (test code = 652) CALCIUM (BEAKER) 7.8 mg/dL 8.4-10.2 L (test code = 697) EGFR (BEAKER) 11 Interpretatio n of eGFR (test code = [...] not appl icable for dialysis patien ts Pharmacists ID - MARCOPOCT-GLUCOSE [id number] 20:23:24 Test Item Value Reference Range Interpretation Comments POC-GLUCOSE METER 177 mg/dL 70-110 H : TESTED A T [facility] 6720 (BEAKER) (test code = [facility], 1538) 25416: Pharmacists/Techni maris ID = [id number] for Piyush South POCT-GLUCOSE [id number] 16:24:01 Test Item Value Reference Range Interpretation Comments POC-GLUCOSE METER 223 mg/dL 70-110 H : TESTED A T [facility] 6720 (BEAKER) (test code = [facility], 1538) 42715: Pharmacists/Techni maris ID = [id number] for Chato Oliver BASIC METABOLIC [id number] 14:57:27 Test Item Value Reference Range Interpretation Comments SODIUM (BEAKER) 139 meq/L 136-145 (test code = 381) POTASSIUM 4.9 meq/L 3.5-5.1 (BEAKER) (test code = 379) CHLORIDE (BEAKER) 108 meq/L 98-107 H (test code = 382) CO2 (BEAKER) 20 meq/L 22-29 L (test code = 355) BLOOD UREA 96 mg/dL 7-21 H NITROGEN (BEAKER) (test code = 354) CREATININE 5.05 mg/dL 0.57-1.25 H (BEAKER) (test code = 358) GLUCOSE RANDOM 197 mg/dL 70-105 H (BEAKER) (test code = 652) CALCIUM (BEAKER) 7.7 mg/dL 8.4-10.2 L (test code = 697) EGFR (BEAKER) 11 Interpretatio n of eGFR (test code = [...] not appl icable for dialysis patien ts Pharmacists ID - PIAYA L(CELLAVISION MANUAL DIFF)2022-08-29 14:40:33 Test Item Value Reference Range Interpretation Comments NEUTROPHILS - REL 98 % (CELLAVISION)(BEAKER) (test code = 2816) LYMPHOCYTES - REL 2 % (CELLAVISION)(BEAKER) (test code = 2817) NEUTROPHILS - ABS 24.21 K/ul 1.56-6.13 H (CELLAVISION)(BEAKER) (test code = 2830) LYMPHOCYTES - ABS 0.49 K/ul 1.18-3.74 L (CELLAVISION)(BEAKER) (test code = 2831) TOTAL COUNTED (BEAKER) (test code 100 = 1351) WBC MORPHOLOGY (BEAKER) (test Normal code = 487) PLT MORPHOLOGY (BEAKER) (test Normal code = 486) POLYCHROMATOPHILLIC RBCS(BEAKER) 1+ few (test code = 478) ANISOCYTOSIS (BEAKER) (test code 1+ few = 961) MICROCYTES (BEAKER) (test code = 1+ few 965) POIKILOCYTES (BEAKER) (test code 2+ moderate = 966) SCHISTOCYTES (BEAKER) (test code 2+ moderate = 765) ELLIPTOCYTES (BEAKER) (test code 1+ few = 962) OVALOCYTES (BEAKER) (test code = 1+ few 477) TEAR DROP CELLS (BEAKER) (test 1+ few code = 481) ARTIFACT (CELLAVISION)(BEAKER) Present (test code = 3432) PLATELET CONCENTRATION Decreased (CELLAVISION)(BEAKER) (test code = 3438) Pharmacists ID - [id number] ID - Huong Tompkins comments: Slide comments: CBC W/PLT COUNT & AUTO [id number] 14:40:32 Test Item Value Reference Range Interpretation Comments WHITE BLOOD CELL COUNT 24.7 K/ L 3.5-10.5 H (BEAKER) (test code = 775) RED BLOOD CELL COUNT 3.22 M/ L 3.93-5.22 L (BEAKER) (test code = 761) HEMOGLOBIN (BEAKER) 7.9 GM/DL 11.2-15.7 L (test code = 410) HEMATOCRIT (BEAKER) 25.6 % 34.1-44.9 L (test code = 411) MEAN CORPUSCULAR VOLUME 80 fL 79-95 (BEAKER) (test code = 753) MEAN CORPUSCULAR 24.5 pg 25.6-32.2 L HEMOGLOBIN (BEAKER) (test code = 751) MEAN CORPUSCULAR 30.9 GM/DL 32.2-35.5 L HEMOGLOBIN CONC (BEAKER) (test code = 752) RED CELL DISTRIBUTION 23.7 % 11.7-14.4 H WIDTH (BEAKER) (test code = 412) PLATELET COUNT (BEAKER) 70 K/CU MM 150-450 L (test code = 756) MEAN PLATELET VOLUME Unable to report due (BEAKER) (test code = to abn ormal Platelet 754) population distribution. NUCLEATED RED BLOOD 0 /100 WBC 0-0 CELLS (BEAKER) (test code = 413) B-TYPE NATRIURETIC FACTOR (BNP)2022-08-29 14:28:25 Test Item Value Reference Range Interpretation Comments B-TYPE NATRIURETIC PEPTIDE 1190 pg/mL 0-100 H (BEAKER) (test code = 700) Pharmacists ID - PIAYA LPOCT-GLUCOSE [id number] 12:35:10 Test Item Value Reference Range Interpretation Comments POC-GLUCOSE METER 157 mg/dL 70-110 H : TESTED A T [facility] 6720 (BEAKER) (test code = HENRRY [facility], 1538) [address]: Pharmacists/Techni maris ID = [id number] for Pa til, [place] CT, [id number] 12:29:00Unlisted Reason for Exam - Click Yes and Enter Reason Below->YesUnlisted Reason for Exam->Concern for diverticulitis, PAULO so can't do IV contrast, will do PO onlyProtocol Please Specify:->Standard ProtocolWill this procedure require oral contrast?->Yes [facility] : 1990 Sex: FFINAL REPORT CT, ABDOMEN \\T\\ PELVIS, WITHOUT IV CONTRAST HISTORY: LLQ abdominal painConcern for diverticulitis, PAULO so can't do IV contrast, will do PO only COMPARISON: CT of the abdomen and pelvis 08/20/2022 TECHNIQUE: Computer tomography of the abdomen and pelvis without intravenous contrast. Dose modulation, iterative reconstruction, and/or weight-based adjustment of the mA/kV was utilized to reduce the radiation dose to as low as reasonably achievable. FINDINGS: Lack of intravenous contrast compromises evaluation of perfusion and for isodense lesions. Lower Thorax: Trace bilateral pleural effusions with adjacent atelectasis/consolidation. Liver: UnremarkableGallbladder and bile ducts: Stones in the gallbladder.Spleen: UnremarkablePancreas: UnremarkableAdrenals: UnremarkableKidneys and ureters: Unremarkable. Bowel: There is a left lower quadrant ostomy. Limited evaluation ofthe bowel due to the lack of intravenous contrast. There is possible thickening of bowel loops in the left hemiabdomen Bladder: Unremarkable Reproductive organs: IUD in place Lymph nodes: UnremarkablePeritoneum: Trace perihepatic ascitesVessels: UnremarkableAbdominal wall: Diffuse anasarca.Bones: Unremarkable IMPRESSION: Lack of intravenous contrast compromises evaluation of perfusion and for isodense lesions. 1.Limited evaluation of the bowel due to the lack of intravenous contrast. There is possible thickening of bowel loops in the left hemiabdomen, concerning for colitis2.Cholelithiasis.3.Volumeoverload with diffuse anasarca, trace perihepatic ascites and trace bilateral pleural effusions withadjacent atelectasis/consolidation. Signed: Kell Bazan MDReport Verified Date/Time: 08/29/2022 12:29:24 Reading Location: [address] Transitional Reading Room SARS-COV2/RT-PCR ([facility])2022-08-29 08:52:28 Test Item Value Reference Range Interpretation Comments SARS-COV2/RT-PCR Negative Negative The SARS-Co V-2 target (test code = nucleic acids a re not [id number]) detected in thi s specimen. Negative result [...] individuals suspected of CO VID-19 by their [facility]. This test has been authorized [...] revoked sooner. Fact Sheet for Healthcare Providers: https://www.[employer]uble[employer] om/Documents/Xpert%20Xpress%20SARS%20CoV-2/Fact%20Sheets/302-3802%55DPTC-EJH-0%2 0HEALTHCARE%20PROVIDERS%20FACT%20SHEET.pdf Fact Sheet for Healthcare Patients: https://www.[employer]/Documents/Xpert%20X press%20SARS%20CoV-2/Fact%20Sheets/302-3801%88YGRM-UGN-6%20PATIENT%20FACT%20SHEE T.pdfPOCT-GLUCOSE [id number] 08:27:46 Test Item Value Reference Range Interpretation Comments POC-GLUCOSE METER 120 mg/dL 70-110 H : TESTED A T [facility] ([employer]) (test code = HENRRY MARC [place], 1538) [address]: Pharmacists/Techni maris ID = [id number] for Chato Oliver POCT-GLUCOSE [id number] 21:41:25 Test Item Value Reference Range Interpretation Comments POC-GLUCOSE METER 243 mg/dL 70-110 H : TESTED A T [facility] ([employer]) (test code = HENRRY Fitzgerald [place], 1538) 928[address]: Pharmacists/Techni maris ID = [id number] for Piyush South POCT-GLUCOSE [id number] 17:13:10 Test Item Value Reference Range Interpretation Comments POC-GLUCOSE METER 222 mg/dL 70-110 H : TESTED A T [facility] (BEAKER) (test code = ROSYTN Lia [facility], 1538) 23556: Pharmacists/Techni maris ID = [id number] for Co Melba patrick BASIC METABOLIC [id number] 15:45:21 Test Item Value Reference Range Interpretation Comments SODIUM (BEAKER) 140 meq/L 136-145 (test code = 381) POTASSIUM 5.3 meq/L 3.5-5.1 H (BEAKER) (test code = 379) CHLORIDE (BEAKER) 109 meq/L 98-107 H (test code = 382) CO2 (BEAKER) 21 meq/L 22-29 L (test code = 355) BLOOD UREA 91 mg/dL 7-21 H NITROGEN (BEAKER) (test code = 354) CREATININE 4.49 mg/dL 0.57-1.25 H (BEAKER) (test code = 358) GLUCOSE RANDOM 141 mg/dL 70-105 H (BEAKER) (test code = 652) CALCIUM (BEAKER) 7.4 mg/dL 8.4-10.2 L (test code = 697) EGFR (BEAKER) 13 Interpretatio n of eGFR (test code = [...] not appl icable for dialysis patien ts Pharmacists ID - HG(CELLAVISION MANUAL DIFF)2022-08-28 15:17:06 Test Item Value Reference Range Interpretation Comments NEUTROPHILS - REL 98 % (CELLAVISION)(BEAKER) (test code = 2816) LYMPHOCYTES - REL 1 % (CELLAVISION)(BEAKER) (test code = 2817) MONOCYTES - REL 1 % (CELLAVISION)(BEAKER) (test code = 2818) NEUTROPHILS - ABS 22.05 K/ul 1.56-6.13 H (CELLAVISION)(BEAKER) (test code = 2830) LYMPHOCYTES - ABS 0.23 K/ul 1.18-3.74 L (CELLAVISION)(BEAKER) (test code = 2831) MONOCYTES - ABS 0.23 K/uL 0.24-0.36 L (CELLAVISION)(BEAKER) (test code = 2832) TOTAL COUNTED (BEAKER) (test code 100 = 1351) WBC MORPHOLOGY (BEAKER) (test Normal code = 487) PLT MORPHOLOGY (BEAKER) (test Normal code = 486) HYPOCHROMIA (BEAKER) (test code = 1+ few 963) ANISOCYTOSIS (BEAKER) (test code 2+ moderate = 961) MICROCYTES (BEAKER) (test code = 1+ few 965) MACROCYTES (BEAKER) (test code = 1+ few 964) POIKILOCYTES (BEAKER) (test code 3+ many = 966) SCHISTOCYTES (BEAKER) (test code 1+ few = 765) TEAR DROP CELLS (BEAKER) (test 1+ few code = 481) PLATELET CONCENTRATION Decreased (CELLAVISION)(BEAKER) (test code = 3438) Pharmacists ID - [id number] ID - Arely Baptiste comments: Slide comments:CBC W/PLT COUNT & AUTO [id number] 15:17:05 Test Item Value Reference Range Interpretation Comments WHITE BLOOD CELL COUNT 22.5 K/ L 3.5-10.5 H (BEAKER) (test code = 775) RED BLOOD CELL COUNT 3.67 M/ L 3.93-5.22 L (BEAKER) (test code = 761) HEMOGLOBIN (BEAKER) 9.1 GM/DL 11.2-15.7 L (test code = 410) HEMATOCRIT (BEAKER) 29.4 % 34.1-44.9 L (test code = 411) MEAN CORPUSCULAR VOLUME 80 fL 79-95 (BEAKER) (test code = 753) MEAN CORPUSCULAR 24.8 pg 25.6-32.2 L HEMOGLOBIN (BEAKER) (test code = 751) MEAN CORPUSCULAR 31.0 GM/DL 32.2-35.5 L HEMOGLOBIN CONC (BEAKER) (test code = 752) RED CELL DISTRIBUTION 23.0 % 11.7-14.4 H WIDTH (BEAKER) (test code = 412) PLATELET COUNT (BEAKER) 83 K/CU MM 150-450 L (test code = 756) MEAN PLATELET VOLUME Unable to report due (BEAKER) (test code = to abn ormal Platelet 754) population distribution. NUCLEATED RED BLOOD 0 /100 WBC 0-0 CELLS (BEAKER) (test code = 413) [id number] 15:15:56 Test Item Value Reference Range Interpretation Comments LIPASE (BEAKER) (test code = 749) 64 U/L 8-78 Pharmacists ID - HGLACTIC ACID, [id number] 15:06:27 Test Item Value Reference Range Interpretation Comments LACTATE BLOOD VENOUS (2) (BEAKER) 1.89 mmol/L 0.50-2.20 (test code = 2872) Pharmacists ID - HGRAD, ABDOMEN/KUB, 1 VIEW [id number] 13:11:00Reason for exam:- >[facility] 1990 Sex: FFINAL REPORT RAD, ABDOMEN/KUB, 1 VIEW AP CLINICAL INDICATION: Abdominal pain COMPARISON: None TECHNIQUE: Single, frontal radiograph of the abdomen. FINDINGS: The bowel gas pattern is nonspecific, but nonobstructive. Large stool burden concerning for constipation. Minimal oral contrast within the left colonic flexure. Evaluation for free air is limited by portable supine technique. Within these limitations, no free air is identified. Signed: Sobeida Figueroa Verified Date/Time: 08/28/2022 13:11:33 Reading Location: [address] Reading Room POCT-GLUCOSE [id number] 10:51:49 Test Item Value Reference Range Interpretation Comments POC-GLUCOSE METER 70 mg/dL 70-110 : TESTED A T [facility] (BEAKER) (test code = [facility], 1538) 658[address]: Pharmacists/Techni maris ID = [id number] for Melba Calzada HEMOGLOBIN [id number] 10:02:15 Test Item Value Reference Range Interpretation Comments HEMOGLOBIN A1C 5.2 % See_Comment [Automated m essage] ELECTROPHORESIS (BEAKER) The system which (test code = 3811) generated this result transmitted ref erence range: <=5.6%. The reference range was not used to int erpret this result as normal/abnormal . "The A1c is measured using a NGSP-certified method. HbA1c value equal to or greater than 6.5% as thediagnosis cutoff for diabetes. An HbA1c value of 5.7- 6.4% indicates increased risk for diabetes (prediabetes)."Pharmacists ID - ADMPOCT- GLUCOSE [id number] 08:42:30 Test Item Value Reference Range Interpretation Comments POC-GLUCOSE METER 77 mg/dL 70-110 : TESTED A T [facility] (BEAKER) (test code = [facility], 1538) 11030: Pharmacists/Techni maris ID = [id number] for Melba Calzada BASIC METABOLIC [id number] 06:37:52 Test Item Value Reference Range Interpretation Comments SODIUM (BEAKER) 140 meq/L 136-145 (test code = 381) POTASSIUM 4.6 meq/L 3.5-5.1 (BEAKER) (test code = 379) CHLORIDE (BEAKER) 109 meq/L 98-107 H (test code = 382) CO2 (BEAKER) 21 meq/L 22-29 L (test code = 355) BLOOD UREA 94 mg/dL 7-21 H NITROGEN (BEAKER) (test code = 354) CREATININE 4.67 mg/dL 0.57-1.25 H (BEAKER) (test code = 358) GLUCOSE RANDOM 97 mg/dL 70-105 (BEAKER) (test code = 652) CALCIUM (BEAKER) 7.2 mg/dL 8.4-10.2 L (test code = 697) EGFR (BEAKER) 12 Interpretati on of eGFR (test code = mL/min/1.73 values [...] not appl icable for dialysis patien ts Pharmacists ID - ADMINCBC W/PLT COUNT & AUTO [id number] 06:12:18 Test Item Value Reference Range Interpretation Comments WHITE BLOOD CELL COUNT 18.0 K/ L 3.5-10.5 H (BEAKER) (test code = 775) RED BLOOD CELL COUNT 3.38 M/ L 3.93-5.22 L (BEAKER) (test code = 761) HEMOGLOBIN (BEAKER) 8.2 GM/DL 11.2-15.7 L (test code = 410) HEMATOCRIT (BEAKER) 26.5 % 34.1-44.9 L (test code = 411) MEAN CORPUSCULAR VOLUME 78 fL 79-95 L (BEAKER) (test code = 753) MEAN CORPUSCULAR 24.3 pg 25.6-32.2 L HEMOGLOBIN (BEAKER) (test code = 751) MEAN CORPUSCULAR 30.9 GM/DL 32.2-35.5 L HEMOGLOBIN CONC (BEAKER) (test code = 752) RED CELL DISTRIBUTION 23.6 % 11.7-14.4 H WIDTH (BEAKER) (test code = 412) PLATELET COUNT (BEAKER) 98 K/CU MM 150-450 L (test code = 756) MEAN PLATELET VOLUME Unable to report due (BEAKER) (test code = to abn ormal Platelet 754) population distribution. NUCLEATED RED BLOOD 0 /100 WBC 0-0 CELLS (BEAKER) (test code = 413) NEUTROPHILS RELATIVE 86 % PERCENT (BEAKER) (test code = 429) LYMPHOCYTES RELATIVE 4 % PERCENT (BEAKER) (test code = 430) MONOCYTES RELATIVE 7 % PERCENT (BEAKER) (test code = 431) EOSINOPHILS RELATIVE 0 % PERCENT (BEAKER) (test code = 432) BASOPHILS RELATIVE 0 % PERCENT (BEAKER) (test code = 437) NEUTROPHILS ABSOLUTE 15.52 K/ L 1.56-6.13 H COUNT (BEAKER) (test code = 670) LYMPHOCYTES ABSOLUTE 0.73 K/ L 1.18-3.74 L COUNT (BEAKER) (test code = 414) MONOCYTES ABSOLUTE 1.27 K/ L 0.24-0.36 H COUNT (BEAKER) (test code = 415) EOSINOPHILS ABSOLUTE 0.01 K/ L 0.04-0.36 L COUNT (BEAKER) (test code = 416) BASOPHILS ABSOLUTE 0.02 K/ L 0.01-0.08 COUNT (BEAKER) (test code = 417) IMMATURE 2.50 % 0.00-1.00 H GRANULOCYTES-RELATIVE PERCENT (BEAKER) (test code = 2801) POCT-GLUCOSE [id number] 19:48:58 Test Item Value Reference Range Interpretation Comments POC-GLUCOSE METER 284 mg/dL 70-110 H : TESTED A T [facility] (BEAKER) (test code = HENRRY Fitzgerald [facility], 1538) 984[address]: Pharmacists/Techni maris ID = [id number] for ANDREW BOWIE POCT-GLUCOSE [id number] 17:24:27 Test Item Value Reference Range Interpretation Comments POC-GLUCOSE METER 241 mg/dL 70-110 H : TESTED A T [facility] (BEAKER) (test code [facility], = 1538) 14127: Pharmacists/Techni maris ID = [id number] for JUAN LUIS ROCKWELL POCT-GLUCOSE [id number] 12:43:08 Test Item Value Reference Range Interpretation Comments POC-GLUCOSE METER 195 mg/dL 70-110 H : TESTED A T [facility] (BEAKER) (test code [facility], = 1538) 24448: Pharmacists/Techni maris ID = [id number] for JUAN LUIS ROCKWELL POCT-GLUCOSE [id number] 08:42:27 Test Item Value Reference Range Interpretation Comments POC-GLUCOSE METER 152 mg/dL 70-110 H : TESTED A T [facility] (BEAKER) (test code [facility], = 1538) 66189: Pharmacists/Techni maris ID = [id number] for JUAN LUIS ROCKWELL (CELLAVISION MANUAL DIFF)2022-08-27 06:28:25 Test Item Value Reference Range Interpretation Comments NEUTROPHILS - REL 93 % (CELLAVISION)(BEAKER) (test code = 2816) LYMPHOCYTES - REL 4 % (CELLAVISION)(BEAKER) (test code = 2817) MYELOCYTES - REL 2 % 0-0 H (CELLAVISION)(BEAKER) (test code = 2822) NEUTROPHILS - ABS 11.44 K/ul 1.56-6.13 H (CELLAVISION)(BEAKER) (test code = 2830) LYMPHOCYTES - ABS 0.49 K/ul 1.18-3.74 L (CELLAVISION)(BEAKER) (test code = 2831) MYELOCYTES-ABS 0.25 K/uL 0.00-0.00 H (CELLAVISION)(BEAKER) (test code = 2837) TOTAL COUNTED (BEAKER) (test code 100 = 1351) PLT MORPHOLOGY (BEAKER) (test code Normal = 486) SMUDGE CELLS (BEAKER) (test code = Present 1371) HYPERSEGMENTATION Present (CELLAVISION)(BEAKER) (test code = 3445) ANISOCYTOSIS (BEAKER) (test code = 1+ few 961) MICROCYTES (BEAKER) (test code = 1+ few 965) MACROCYTES (BEAKER) (test code = 1+ few 964) POIKILOCYTES (BEAKER) (test code = 1+ few 966) SCHISTOCYTES (BEAKER) (test code = 1+ few 765) SPHEROCYTES (BEAKER) (test code = 1+ few 768) ELLIPTOCYTES (BEAKER) (test code = 1+ few 962) OVALOCYTES (BEAKER) (test code = 1+ few 477) TEAR DROP CELLS (BEAKER) (test 1+ few code = 481) BASOPHILIC STIPPLING (BEAKER) Present (test code = 473) ARTIFACT (CELLAVISION)(BEAKER) Present (test code = 3432) HELMET CELLS (CELLAVISION)(BEAKER) 1+ few (test code = 3434) PLATELET CONCENTRATION Decreased (CELLAVISION)(BEAKER) (test code = 3438) Pharmacists ID - [id number] ID - Viviana comments: Slide comments:CBC W/PLT COUNT & AUTO [id number] 06:28:24 Test Item Value Reference Range Interpretation Comments WHITE BLOOD CELL COUNT 12.3 K/ L 3.5-10.5 H (BEAKER) (test code = 775) RED BLOOD CELL COUNT 3.63 M/ L 3.93-5.22 L (BEAKER) (test code = 761) HEMOGLOBIN (BEAKER) 8.8 GM/DL 11.2-15.7 L (test code = 410) HEMATOCRIT (BEAKER) 28.5 % 34.1-44.9 L (test code = 411) MEAN CORPUSCULAR VOLUME 79 fL 79-95 (BEAKER) (test code = 753) MEAN CORPUSCULAR 24.2 pg 25.6-32.2 L HEMOGLOBIN (BEAKER) (test code = 751) MEAN CORPUSCULAR 30.9 GM/DL 32.2-35.5 L HEMOGLOBIN CONC (BEAKER) (test code = 752) RED CELL DISTRIBUTION 23.0 % 11.7-14.4 H WIDTH (BEAKER) (test code = 412) PLATELET COUNT (BEAKER) 96 K/CU MM 150-450 L (test code = 756) MEAN PLATELET VOLUME Unable to report due (BEAKER) (test code = to abn ormal Platelet 754) population distribution. NUCLEATED RED BLOOD 0 /100 WBC 0-0 CELLS (BEAKER) (test code = 413) BASIC METABOLIC [id number] 06:18:52 Test Item Value Reference Range Interpretation Comments SODIUM (BEAKER) 138 meq/L 136-145 (test code = 381) POTASSIUM 4.5 meq/L 3.5-5.1 (BEAKER) (test code = 379) CHLORIDE (BEAKER) 107 meq/L 98-107 (test code = 382) CO2 (BEAKER) 20 meq/L 22-29 L (test code = 355) BLOOD UREA 95 mg/dL 7-21 H NITROGEN (BEAKER) (test code = 354) CREATININE 4.81 mg/dL 0.57-1.25 H (BEAKER) (test code = 358) GLUCOSE RANDOM 211 mg/dL 70-105 H (BEAKER) (test code = 652) CALCIUM (BEAKER) 7.0 mg/dL 8.4-10.2 L (test code = 697) EGFR (BEAKER) 12 Interpretatio n of eGFR (test code = [...] not appl icable for dialysis patien ts Pharmacists ID - [id number] 06:01:08 Test Item Value Reference Range Interpretation Comments ALBUMIN (BEAKER) (test code = 1145) 2.8 g/dL 3.5-5.0 L Pharmacists ID - BSCALCIUM, [id number] 05:26:47 Test Item Value Reference Range Interpretation Comments CALCIUM IONIZED (BEAKER) (test 0.97 mmol/L 1.12-1.27 L code = 698) PH, BLOOD (BEAKER) (test code = 7.34 1810) POCT-GLUCOSE [id number] 18:05:19 Test Item Value Reference Range Interpretation Comments POC-GLUCOSE METER 259 mg/dL 70-110 H : TESTED A T [facility] (BEAKER) (test code = HENRRY Fitzgerald [facility], 1538) 41317: Pharmacists/Techni maris ID = [id number] for ESPERANZA BENITEZ POCT-GLUCOSE [id number] 12:49:55 Test Item Value Reference Range Interpretation Comments POC-GLUCOSE METER 151 mg/dL 70-110 H : TESTED A T [facility] (BEAKER) (test code = HENRRY Fitzgerald [place], 1538) 53656: Pharmacists/Techni maris ID = [id number] for ESPERANZA BENITEZ [id number] 11:48:04 Test Item Value Reference Range Interpretation Comments PHOSPHORUS (BEAKER) (test code = 2.7 mg/dL 2.3-4.7 604) Pharmacists ID - HENRY GPOCT-GLUCOSE [id number] 08:40:37 Test Item Value Reference Range Interpretation Comments POC-GLUCOSE METER 132 mg/dL 70-110 H : TESTED A T [facility] (BEAKER) (test code = HENRRY Fitzgerald [place], 1538) 35198: Pharmacists/Techni maris ID = [id number] for ESPERANZA BENITEZ CBC W/PLT COUNT & AUTO [id number] 06:16:03 Test Item Value Reference Range Interpretation Comments WHITE BLOOD CELL COUNT 12.5 K/ L 3.5-10.5 H (BEAKER) (test code = 775) RED BLOOD CELL COUNT 3.26 M/ L 3.93-5.22 L (BEAKER) (test code = 761) HEMOGLOBIN (BEAKER) 7.9 GM/DL 11.2-15.7 L (test code = 410) HEMATOCRIT (BEAKER) 25.3 % 34.1-44.9 L (test code = 411) MEAN CORPUSCULAR VOLUME 78 fL 79-95 L (BEAKER) (test code = 753) MEAN CORPUSCULAR 24.2 pg 25.6-32.2 L HEMOGLOBIN (BEAKER) (test code = 751) MEAN CORPUSCULAR 31.2 GM/DL 32.2-35.5 L HEMOGLOBIN CONC (BEAKER) (test code = 752) RED CELL DISTRIBUTION 23.3 % 11.7-14.4 H WIDTH (BEAKER) (test code = 412) PLATELET COUNT (BEAKER) 87 K/CU MM 150-450 L (test code = 756) MEAN PLATELET VOLUME Unable to report due (BEAKER) (test code = to abn ormal Platelet 754) population distribution. NUCLEATED RED BLOOD 0 /100 WBC 0-0 CELLS (BEAKER) (test code = 413) NEUTROPHILS RELATIVE 81 % PERCENT (BEAKER) (test code = 429) LYMPHOCYTES RELATIVE 3 % PERCENT (BEAKER) (test code = 430) MONOCYTES RELATIVE 11 % PERCENT (BEAKER) (test code = 431) EOSINOPHILS RELATIVE 0 % PERCENT (BEAKER) (test code = 432) BASOPHILS RELATIVE 0 % PERCENT (BEAKER) (test code = 437) NEUTROPHILS ABSOLUTE 10.13 K/ L 1.56-6.13 H COUNT (BEAKER) (test code = 670) LYMPHOCYTES ABSOLUTE 0.39 K/ L 1.18-3.74 L COUNT (BEAKER) (test code = 414) MONOCYTES ABSOLUTE 1.39 K/ L 0.24-0.36 H COUNT (BEAKER) (test code = 415) EOSINOPHILS ABSOLUTE 0.00 K/ L 0.04-0.36 L COUNT (BEAKER) (test code = 416) BASOPHILS ABSOLUTE 0.01 K/ L 0.01-0.08 COUNT (BEAKER) (test code = 417) IMMATURE 4.60 % 0.00-1.00 H GRANULOCYTES-RELATIVE PERCENT (BEAKER) (test code = 2801) BASIC METABOLIC [id number] 05:59:24 Test Item Value Reference Range Interpretation Comments SODIUM (BEAKER) 140 meq/L 136-145 (test code = 381) POTASSIUM 4.6 meq/L 3.5-5.1 (BEAKER) (test code = 379) CHLORIDE (BEAKER) 111 meq/L 98-107 H (test code = 382) CO2 (BEAKER) 18 meq/L 22-29 L (test code = 355) BLOOD UREA 90 mg/dL 7-21 H NITROGEN (BEAKER) (test code = 354) CREATININE 5.06 mg/dL 0.57-1.25 H (BEAKER) (test code = 358) GLUCOSE RANDOM 197 mg/dL 70-105 H (BEAKER) (test code = 652) CALCIUM (BEAKER) 6.4 mg/dL 8.4-10.2 L (test code = 697) EGFR (BEAKER) 11 Interpretatio n of eGFR (test code = [...] not appl icable for dialysis patien ts Pharmacists ID - HENRY GPOCT-GLUCOSE [id number] 20:46:20 Test Item Value Reference Range Interpretation Comments POC-GLUCOSE METER 222 mg/dL 70-110 H : TESTED A T [facility] (BEAKER) (test code = [facility], 1538) 67622: Pharmacists/Techni maris ID = [id number] for ANDREW BOWIE POCT-GLUCOSE [id number] 17:38:42 Test Item Value Reference Range Interpretation Comments POC-GLUCOSE METER 189 mg/dL 70-110 H : TESTED A T [facility] (BEAKER) (test code = [facility], 1538) 02038: Pharmacists/Techni maris ID = [id number] for Co ok, Melba POCT-GLUCOSE [id number] 11:11:23 Test Item Value Reference Range Interpretation Comments POC-GLUCOSE METER 168 mg/dL 70-110 H : TESTED A T [facility] (BEAKER) (test code = [facility], 1538) 49093: Pharmacists/Techni maris ID = [id number] for Co ok, Melba POCT-GLUCOSE [id number] 08:31:52 Test Item Value Reference Range Interpretation Comments POC-GLUCOSE METER 169 mg/dL 70-110 H : TESTED A T [facility] (BEAKER) (test code = [facility], 1538) 26086: Pharmacists/Techni maris ID = [id number] for Co ok, Melba (CELLAVISION MANUAL DIFF)2022-08-25 07:51:05 Test Item Value Reference Range Interpretation Comments NEUTROPHILS - REL 93 % (CELLAVISION)(BEAKER) (test code = 2816) LYMPHOCYTES - REL 2 % (CELLAVISION)(BEAKER) (test code = 2817) MONOCYTES - REL 3 % (CELLAVISION)(BEAKER) (test code = 2818) MYELOCYTES - REL 1 % 0-0 H (CELLAVISION)(BEAKER) (test code = 2822) PROMYELOCYTES - REL 1 % 0-0 H (CELLAVSION)(BEAKER) (test code = 2825) NEUTROPHILS - ABS 10.32 K/ul 1.56-6.13 H (CELLAVISION)(BEAKER) (test code = 2830) LYMPHOCYTES - ABS 0.22 K/ul 1.18-3.74 L (CELLAVISION)(BEAKER) (test code = 2831) MONOCYTES - ABS 0.33 K/uL 0.24-0.36 (CELLAVISION)(BEAKER) (test code = 2832) MYELOCYTES-ABS 0.11 K/uL 0.00-0.00 H (CELLAVISION)(BEAKER) (test code = 2837) PROMYELOCYTES - ABS 0.11 K/uL 0.00-0.00 H (CELLAVISION)(BEAKER) (test code = 2838) TOTAL COUNTED (BEAKER) (test code 100 = 1351) WBC MORPHOLOGY (BEAKER) (test Normal code = 487) PLT MORPHOLOGY (BEAKER) (test Normal code = 486) HYPOCHROMIA (BEAKER) (test code = 1+ few 963) ANISOCYTOSIS (BEAKER) (test code 2+ moderate = 961) MICROCYTES (BEAKER) (test code = 1+ few 965) POIKILOCYTES (BEAKER) (test code 2+ moderate = 966) SCHISTOCYTES (BEAKER) (test code 1+ few = 765) SPHEROCYTES (BEAKER) (test code = 1+ few 768) OVALOCYTES (BEAKER) (test code = 2+ moderate 477) TEAR DROP CELLS (BEAKER) (test 2+ moderate code = 481) ARTIFACT (CELLAVISION)(BEAKER) Present (test code = 3432) HELMET CELLS 1+ few (CELLAVISION)(BEAKER) (test code = 3434) PLATELET CONCENTRATION Decreased (CELLAVISION)(BEAKER) (test code = 3438) Pharmacists ID - [id number] ID - [id number] comments: Slide comments:CBC W/PLT COUNT & AUTO [id number] 07:51:04 Test Item Value Reference Range Interpretation Comments WHITE BLOOD CELL COUNT 11.1 K/ L 3.5-10.5 H (BEAKER) (test code = 775) RED BLOOD CELL COUNT 3.14 M/ L 3.93-5.22 L (BEAKER) (test code = 761) HEMOGLOBIN (BEAKER) 7.6 GM/DL 11.2-15.7 L (test code = 410) HEMATOCRIT (BEAKER) 24.1 % 34.1-44.9 L (test code = 411) MEAN CORPUSCULAR VOLUME 77 fL 79-95 L (BEAKER) (test code = 753) MEAN CORPUSCULAR 24.2 pg 25.6-32.2 L HEMOGLOBIN (BEAKER) (test code = 751) MEAN CORPUSCULAR 31.5 GM/DL 32.2-35.5 L HEMOGLOBIN CONC (BEAKER) (test code = 752) RED CELL DISTRIBUTION 23.0 % 11.7-14.4 H WIDTH (BEAKER) (test code = 412) PLATELET COUNT (BEAKER) 88 K/CU MM 150-450 L (test code = 756) MEAN PLATELET VOLUME Unable to report due (BEAKER) (test code = to abn ormal Platelet 754) population distribution. NUCLEATED RED BLOOD 0 /100 WBC 0-0 CELLS (BEAKER) (test code = 413) VITAMIN D, [id number] 07:20:10 Test Item Value Reference Range Interpretation Comments VITAMIN D 25-OH (BEAKER) (test 20.7 ng/mL 6.6-49.9 code = 2764) Effective 06/02/2017: Reference Range ChangeNew: 6.6-49.9 ng/mL Previous: 13.0- 47.8 ng/mLRecommendedVitamin D Target Range: 30.0-40.0 ng/mLOperator ID - BS BASIC METABOLIC [id number] 07:13:24 Test Item Value Reference Range Interpretation Comments SODIUM (BEAKER) 140 meq/L 136-145 (test code = 381) POTASSIUM 4.5 meq/L 3.5-5.1 (BEAKER) (test code = 379) CHLORIDE (BEAKER) 111 meq/L 98-107 H (test code = 382) CO2 (BEAKER) 19 meq/L 22-29 L (test code = 355) BLOOD UREA 86 mg/dL 7-21 H NITROGEN (BEAKER) (test code = 354) CREATININE 4.96 mg/dL 0.57-1.25 H (BEAKER) (test code = 358) GLUCOSE RANDOM 190 mg/dL 70-105 H (BEAKER) (test code = 652) CALCIUM (BEAKER) 6.3 mg/dL 8.4-10.2 L (test code = 697) EGFR (BEAKER) 11 Interpretatio n of eGFR (test code = [...] not appl icable for dialysis patien ts Pharmacists ID - MYLAOPTH, [id number] 07:08:11 Test Item Value Reference Range Interpretation Comments PARATHYROID HORMONE INTACT 407.9 pg/mL 8.5-72.5 H (BEAKER) (test code = 577) Pharmacists ID - MYLAOB-TYPE NATRIURETIC FACTOR (BNP)2022-08-25 07:07:26 Test Item Value Reference Range Interpretation Comments B-TYPE NATRIURETIC PEPTIDE (BEAKER) 333 pg/mL 0-100 H (test code = 700) Pharmacists ID - [id number] 07:04:08 Test Item Value Reference Range Interpretation Comments MAGNESIUM (BEAKER) (test code = 1.8 mg/dL 1.6-2.6 627) Pharmacists ID - MYLAOPOCT-GLUCOSE [id number] 20:22:02 Test Item Value Reference Range Interpretation Comments POC-GLUCOSE METER 211 mg/dL 70-110 H : TESTED A T [facility] 6720 (BEAKER) (test code = HENRRY MARC [place], 1538) 12044: Pharmacists/Techni maris ID = [id number] for ANDREW BOWIE POCT-GLUCOSE [id number] 16:03:43 Test Item Value Reference Range Interpretation Comments POC-GLUCOSE METER 202 mg/dL 70-110 H : TESTED A T [facility] 6720 (BEAKER) (test code = HENRRY Fitzgerald [facility], 1538) 57364: Pharmacists/Techni maris ID = [id number] for Melba Cook POCT-GLUCOSE [id number] 08:15:44 Test Item Value Reference Range Interpretation Comments POC-GLUCOSE METER 180 mg/dL 70-110 H : TESTED A T [facility] 6720 (BEAKER) (test code = HENRRY Fitzgerald [facility], 1538) 28760: Pharmacists/Techni maris ID = [id number] for Melba Cook BASIC METABOLIC [id number] 07:06:31 Test Item Value Reference Range Interpretation Comments SODIUM (BEAKER) 140 meq/L 136-145 (test code = 381) POTASSIUM 4.8 meq/L 3.5-5.1 (BEAKER) (test code = 379) CHLORIDE (BEAKER) 111 meq/L 98-107 H (test code = 382) CO2 (BEAKER) 18 meq/L 22-29 L (test code = 355) BLOOD UREA 83 mg/dL 7-21 H NITROGEN (BEAKER) (test code = 354) CREATININE 5.17 mg/dL 0.57-1.25 H (BEAKER) (test code = 358) GLUCOSE RANDOM 180 mg/dL 70-105 H (BEAKER) (test code = 652) CALCIUM (BEAKER) 6.0 mg/dL 8.4-10.2 LL (test code = 697) EGFR (BEAKER) 11 Interpretatio n of eGFR (test code = [...] not appl icable for dialysis patien ts Pharmacists ID - PIAYA LCBC W/PLT COUNT & AUTO [id number] 06:10:58 Test Item Value Reference Range Interpretation Comments WHITE BLOOD CELL COUNT 10.4 K/ L 3.5-10.5 (BEAKER) (test code = 775) RED BLOOD CELL COUNT 3.47 M/ L 3.93-5.22 L (BEAKER) (test code = 761) HEMOGLOBIN (BEAKER) 8.4 GM/DL 11.2-15.7 L (test code = 410) HEMATOCRIT (BEAKER) 26.6 % 34.1-44.9 L (test code = 411) MEAN CORPUSCULAR VOLUME 77 fL 79-95 L (BEAKER) (test code = 753) MEAN CORPUSCULAR 24.2 pg 25.6-32.2 L HEMOGLOBIN (BEAKER) (test code = 751) MEAN CORPUSCULAR 31.6 GM/DL 32.2-35.5 L HEMOGLOBIN CONC (BEAKER) (test code = 752) RED CELL DISTRIBUTION 23.8 % 11.7-14.4 H WIDTH (BEAKER) (test code = 412) PLATELET COUNT (BEAKER) 90 K/CU MM 150-450 L (test code = 756) MEAN PLATELET VOLUME Unable to report due (BEAKER) (test code = to abn ormal Platelet 754) population distribution. NUCLEATED RED BLOOD 0 /100 WBC 0-0 CELLS (BEAKER) (test code = 413) NEUTROPHILS RELATIVE 83 % PERCENT (BEAKER) (test code = 429) LYMPHOCYTES RELATIVE 2 % PERCENT (BEAKER) (test code = 430) MONOCYTES RELATIVE 10 % PERCENT (BEAKER) (test code = 431) EOSINOPHILS RELATIVE 0 % PERCENT (BEAKER) (test code = 432) BASOPHILS RELATIVE 0 % PERCENT (BEAKER) (test code = 437) NEUTROPHILS ABSOLUTE 8.64 K/ L 1.56-6.13 H COUNT (BEAKER) (test code = 670) LYMPHOCYTES ABSOLUTE 0.25 K/ L 1.18-3.74 L COUNT (BEAKER) (test code = 414) MONOCYTES ABSOLUTE 1.02 K/ L 0.24-0.36 H COUNT (BEAKER) (test code = 415) EOSINOPHILS ABSOLUTE 0.00 K/ L 0.04-0.36 L COUNT (BEAKER) (test code = 416) BASOPHILS ABSOLUTE 0.01 K/ L 0.01-0.08 COUNT (BEAKER) (test code = 417) IMMATURE 4.70 % 0.00-1.00 H GRANULOCYTES-RELATIVE PERCENT (BEAKER) (test code = 2801) POCT-GLUCOSE [id number] 17:45:27 Test Item Value Reference Range Interpretation Comments POC-GLUCOSE METER 175 mg/dL 70-110 H : TESTED A T [facility] 6720 (BEAKER) (test code [facility], = 1538) [address]: Pharmacists/Techni maris ID = [id number] for JUAN LUIS ROCKWELL CBC W/PLT COUNT & AUTO [id number] 09:29:57 Test Item Value Reference Range Interpretation Comments WHITE BLOOD CELL COUNT 9.8 K/ L 3.5-10.5 (BEAKER) (test code = 775) RED BLOOD CELL COUNT 3.44 M/ L 3.93-5.22 L (BEAKER) (test code = 761) HEMOGLOBIN (BEAKER) 8.3 GM/DL 11.2-15.7 L (test code = 410) HEMATOCRIT (BEAKER) 26.2 % 34.1-44.9 L (test code = 411) MEAN CORPUSCULAR VOLUME 76 fL 79-95 L (BEAKER) (test code = 753) MEAN CORPUSCULAR 24.1 pg 25.6-32.2 L HEMOGLOBIN (BEAKER) (test code = 751) MEAN CORPUSCULAR 31.7 GM/DL 32.2-35.5 L HEMOGLOBIN CONC (BEAKER) (test code = 752) RED CELL DISTRIBUTION 23.4 % 11.7-14.4 H WIDTH (BEAKER) (test code = 412) PLATELET COUNT (BEAKER) 93 K/CU MM 150-450 L (test code = 756) MEAN PLATELET VOLUME Unable to report due (BEAKER) (test code = to abn ormal Platelet 754) population distribution. NUCLEATED RED BLOOD 0 /100 WBC 0-0 CELLS (BEAKER) (test code = 413) (CELLAVISION MANUAL DIFF)2022-08-23 09:29:57 Test Item Value Reference Range Interpretation Comments NEUTROPHILS - REL 85 % (CELLAVISION)(BEAKER) (test code = 2816) LYMPHOCYTES - REL 2 % (CELLAVISION)(BEAKER) (test code = 2817) MONOCYTES - REL 10 % (CELLAVISION)(BEAKER) (test code = 2818) MYELOCYTES - REL 1 % 0-0 H (CELLAVISION)(BEAKER) (test code = 2822) BANDS - REL (CELLAVISION)(BEAKER) 2 % 0-10 (test code = 2826) NEUTROPHILS - ABS 8.33 K/ul 1.56-6.13 H (CELLAVISION)(BEAKER) (test code = 2830) LYMPHOCYTES - ABS 0.20 K/ul 1.18-3.74 L (CELLAVISION)(BEAKER) (test code = 2831) MONOCYTES - ABS 0.98 K/uL 0.24-0.36 H (CELLAVISION)(BEAKER) (test code = 2832) MYELOCYTES-ABS 0.10 K/uL 0.00-0.00 H (CELLAVISION)(BEAKER) (test code = 2837) BANDS - ABS (CELLAVISION)(BEAKER) 0.20 K/uL 0.00-0.80 (test code = 2840) TOTAL COUNTED (BEAKER) (test code 100 = 1351) WBC MORPHOLOGY (BEAKER) (test Normal code = 487) PLT MORPHOLOGY (BEAKER) (test Normal code = 486) HYPOCHROMIA (BEAKER) (test code = 1+ few 963) ANISOCYTOSIS (BEAKER) (test code 2+ moderate = 961) MICROCYTES (BEAKER) (test code = 1+ few 965) MACROCYTES (BEAKER) (test code = 1+ few 964) POIKILOCYTES (BEAKER) (test code 3+ many = 966) SCHISTOCYTES (BEAKER) (test code 3+ many = 765) ELLIPTOCYTES (BEAKER) (test code 2+ moderate = 962) OVALOCYTES (BEAKER) (test code = 2+ moderate 477) TEAR DROP CELLS (BEAKER) (test 2+ moderate code = 481) ARTIFACT (CELLAVISION)(BEAKER) Present (test code = 3432) PAPPENHEIMER 1+ few (CELLAVISION)(BEAKER) (test code = 3435) PLATELET CONCENTRATION Decreased (CELLAVISION)(BEAKER) (test code = 3438) Pharmacists ID - [id number] ID - Lisy OverholtUser comments: Slide comments:POCT- GLUCOSE [id number] 09:01:32 Test Item Value Reference Range Interpretation Comments POC-GLUCOSE METER 125 mg/dL 70-110 H : TESTED A T [facility] 6720 (BEAKER) (test code [facility], = 1538) [id number]: Pharmacists/Techni maris ID = [id number] for JUAN LUIS ROCKWELL BASIC METABOLIC [id number] 06:57:41 Test Item Value Reference Range Interpretation Comments SODIUM (BEAKER) 140 meq/L 136-145 (test code = 381) POTASSIUM 4.8 meq/L 3.5-5.1 (BEAKER) (test code = 379) CHLORIDE (BEAKER) 111 meq/L 98-107 H (test code = 382) CO2 (BEAKER) 19 meq/L 22-29 L (test code = 355) BLOOD UREA 75 mg/dL 7-21 H NITROGEN (BEAKER) (test code = 354) CREATININE 5.43 mg/dL 0.57-1.25 H (BEAKER) (test code = 358) GLUCOSE RANDOM 166 mg/dL 70-105 H (BEAKER) (test code = 652) CALCIUM (BEAKER) 6.0 mg/dL 8.4-10.2 LL (test code = 697) EGFR (BEAKER) 10 Interpretatio n of eGFR (test code = [...] not appl icable for dialysis patien ts Pharmacists ID - PIAYA LSARS-COV2/RT-PCR (HS & REF LABS)2022-08-22 19:16:10 Test Item Value Reference Range Interpretation Comments SARS-COV2/RT-PCR Negative Negative The SARS-Co V-2 target (test code = nucleic acids a re not [id number]) detected in thi s specimen. Negative result [...] revoked sooner. Fact Sheet for Healthcare Providers: https://www.[employer] m/Documents/Xpert%20Xpress%20SARS%20CoV-2/Fact%20Sheets/3023802%20OJNO-SOB-3%20 HEALTHCARE%20PROVIDERS%20FACT%20SHEET.pdf Fact Sheet for Healthcare Patients: https://www.[employer]/Documents/Xpert%20Xp ress%20SARS%20CoV-2/Fact%20Sheets/3023801%08MCTS-MVS-6%20PATIENT%20FACT%20SHEET .pdfPOCT-GLUCOSE [id number] 18:03:04 Test Item Value Reference Range Interpretation Comments POC-GLUCOSE METER 248 mg/dL 70-110 H : Notified RN/MD: (FELIPE) (test code = TESTED AT [facility] 6720 1538) [facility], [address]: Pharmacists/Techni maris ID = [id number] for NATHAN GRAJEDA, NAHID POCT-GLUCOSE [id number] 13:13:26 Test Item Value Reference Range Interpretation Comments POC-GLUCOSE METER 184 mg/dL 70-110 H : Notified RN/MD: (BEAKER) (test code = TESTED AT [facility] 6720 1538) [facility], [address]: Pharmacists/Techni maris ID = [id number] for EVANS YES, NAHID BILIRUBIN, [id number] 12:01:52 Test Item Value Reference Range Interpretation Comments BILIRUBIN, INDIRECT (BEAKER) (test 0.2 result code = 1554) POCT-GLUCOSE [id number] 08:47:55 Test Item Value Reference Range Interpretation Comments POC-GLUCOSE METER 139 mg/dL 70-110 H : TESTED A T [facility] 6720 (BEAKER) (test code = [facility], 1538) [address]: Pharmacists/Techni maris ID = [id number] for EVANS YES, NAHID BILIRUBIN, [id number] 08:44:10 Test Item Value Reference Range Interpretation Comments BILIRUBIN DIRECT (BEAKER) (test 0.1 mg/dL 0.1-0.5 code = 706) Pharmacists ID - DEMARCO(CELLAVISION MANUAL DIFF)2022-08-22 06:48:35 Test Item Value Reference Range Interpretation Comments NEUTROPHILS - REL 85 % (CELLAVISION)(BEAKER) (test code = 2816) LYMPHOCYTES - REL 5 % (CELLAVISION)(BEAKER) (test code = 2817) MONOCYTES - REL 5 % (CELLAVISION)(BEAKER) (test code = 2818) MYELOCYTES - REL 1 % 0-0 H (CELLAVISION)(BEAKER) (test code = 2822) BANDS - REL (CELLAVISION)(BEAKER) 2 % 0-10 (test code = 2826) ATYPICAL LYMPHOCYTES - REL 2 % 0-0 H (CELLAVISION)(BEAKER) (test code = 2829) NEUTROPHILS - ABS 8.67 K/ul 1.56-6.13 H (CELLAVISION)(BEAKER) (test code = 2830) LYMPHOCYTES - ABS 0.51 K/ul 1.18-3.74 L (CELLAVISION)(BEAKER) (test code = 2831) MONOCYTES - ABS 0.51 K/uL 0.24-0.36 H (CELLAVISION)(BEAKER) (test code = 2832) MYELOCYTES-ABS 0.10 K/uL 0.00-0.00 H (CELLAVISION)(BEAKER) (test code = 2837) BANDS - ABS (CELLAVISION)(BEAKER) 0.20 K/uL 0.00-0.80 (test code = 2840) ATYPICAL LYMPHOCYTES - ABS 0.20 K/uL 0.00-0.00 H (CELLAVISION)(BEAKER) (test code = 2858) TOTAL COUNTED (BEAKER) (test code 100 = 1351) MANUAL NRBC PER 100 CELLS (BEAKER) 1 /100 WBC 0-0 H (test code = 1353) PLT MORPHOLOGY (BEAKER) (test code Normal = 486) SMUDGE CELLS (BEAKER) (test code = Present 1371) ANISOCYTOSIS (BEAKER) (test code = 1+ few 961) MICROCYTES (BEAKER) (test code = 1+ few 965) POIKILOCYTES (BEAKER) (test code = 1+ few 966) SCHISTOCYTES (BEAKER) (test code = 1+ few 765) SPHEROCYTES (BEAKER) (test code = 1+ few 768) TEAR DROP CELLS (BEAKER) (test 1+ few code = 481) BASOPHILIC STIPPLING (BEAKER) Present (test code = 473) ARTIFACT (CELLAVISION)(BEAKER) Present (test code = 3432) PLATELET CONCENTRATION Decreased (CELLAVISION)(BEAKER) (test code = 3438) Pharmacists ID - Viviana comments: Slide comments:CBC W/PLT COUNT & AUTO [id number] 06:48:34 Test Item Value Reference Range Interpretation Comments WHITE BLOOD CELL COUNT 10.2 K/ L 3.5-10.5 (BEAKER) (test code = 775) RED BLOOD CELL COUNT 3.56 M/ L 3.93-5.22 L (BEAKER) (test code = 761) HEMOGLOBIN (BEAKER) 8.6 GM/DL 11.2-15.7 L (test code = 410) HEMATOCRIT (BEAKER) 27.3 % 34.1-44.9 L (test code = 411) MEAN CORPUSCULAR 77 fL 79-95 L VOLUME (BEAKER) (test code = 753) MEAN CORPUSCULAR 24.2 pg 25.6-32.2 L HEMOGLOBIN (BEAKER) (test code = 751) MEAN CORPUSCULAR 31.5 GM/DL 32.2-35.5 L HEMOGLOBIN CONC (BEAKER) (test code = 752) RED CELL DISTRIBUTION 22.8 % 11.7-14.4 H WIDTH (BEAKER) (test code = 412) PLATELET COUNT 108 K/CU MM 150-450 L (BEAKER) (test code = 756) MEAN PLATELET VOLUME Unable to report due (BEAKER) (test code = to abn ormal Platelet 754) population distribution. NUCLEATED RED BLOOD 0 /100 WBC 0-0 CELLS (BEAKER) (test code = 413) [id number] 06:28:31 Test Item Value Reference Range Interpretation Comments HAPTOGLOBIN (BEAKER) (test code = 126 mg/dL 14-258 366) Pharmacists ID - PIAYA LCOMPREHENSIVE METABOLIC [id number] 05:45:04 Test Item Value Reference Range Interpretation Comments TOTAL PROTEIN 4.4 gm/dL 6.0-8.3 L (BEAKER) (test code = 770) ALBUMIN (BEAKER) 2.5 g/dL 3.5-5.0 L (test code = 1145) ALKALINE 104 U/L 40-150 PHOSPHATASE (BEAKER) (test code = 346) BILIRUBIN TOTAL 0.3 mg/dL 0.2-1.2 (BEAKER) (test code = 377) SODIUM (BEAKER) 139 meq/L 136-145 (test code = 381) POTASSIUM (BEAKER) 4.5 meq/L 3.5-5.1 (test code = 379) CHLORIDE (BEAKER) 111 meq/L 98-107 H (test code = 382) CO2 (BEAKER) (test 19 meq/L 22-29 L code = 355) BLOOD UREA 68 mg/dL 7-21 H NITROGEN (BEAKER) (test code = 354) CREATININE 5.73 mg/dL 0.57-1.25 H (BEAKER) (test code = 358) GLUCOSE RANDOM 165 mg/dL 70-105 H (BEAKER) (test code = 652) CALCIUM (BEAKER) 6.1 mg/dL 8.4-10.2 L (test code = 697) AST (SGOT) 32 U/L 5-34 (BEAKER) (test code = 353) ALT (SGPT) 34 U/L 6-55 (BEAKER) (test code = 347) EGFR (BEAKER) 9 Interpretatio n of eGFR (test code = [...] not appl icable for dialysis patien ts Pharmacists ID - MARCOLACTATE DEHYDROGENASE (LDH)2022-08-22 05:44:16 Test Item Value Reference Range Interpretation Comments LACTATE DEHYDROGENASE (BEAKER) (test 352 U/L 125-220 H code = 635) Pharmacists ID - [id number] 05:44:15 Test Item Value Reference Range Interpretation Comments MAGNESIUM (BEAKER) (test code = 1.7 mg/dL 1.6-2.6 627) Pharmacists ID - [id number] 05:44:15 Test Item Value Reference Range Interpretation Comments PHOSPHORUS (BEAKER) (test code = 2.8 mg/dL 2.3-4.7 604) Pharmacists ID - GICHZIEOLPNDCGT4916-44-59 05:39:05 Test Item Value Reference Range Interpretation Comments FIBRINOGEN LEVEL (BEAKER) (test 163 mg/dl 225-434 L code = 658) CALCIUM, [id number] 05:25:34 Test Item Value Reference Range Interpretation Comments CALCIUM IONIZED (BEAKER) (test 0.88 mmol/L 1.12-1.27 L code = 698) PH, BLOOD (BEAKER) (test code = 7.42 1810) POCT-GLUCOSE [id number] 22:15:01 Test Item Value Reference Range Interpretation Comments POC-GLUCOSE METER 284 mg/dL 70-110 H : TESTED A T [facility] 6720 (BEAKER) (test code = [place], 1538) [address]: Pharmacists/Techni maris ID = [id number] for Nuria Gonzalez Tissue [id number] 19:14:24 Test Item Value Reference Range Interpretation Comments Case Report (test code Surgical Pathology = 104) Report Case: [id number] Authorizing Provider: Armando Chandra MD Collected: 08/18/2022 02:16 PM Ordering Location: [address] Received: 08/18/2022 02:16 PM Service Pathologist: Shana Corona MD Specimen: Renal, Left, US Guided Left Kidney Biopsy-[place] DIAGNOSIS (test code = e6xqmDLjMGBin8toMKBtwI 3220) FuZzEwMzNcZnRuYmpcdWMx IHtccnRmMVxlcGljOTYwMl kbsiCuWEEnfXUdF2Sovtsx BLkzKO9jHH7ofBitxCDvzN XcPUElRnYuu1ruv420aOBh y2afBURIioaxiWc9jSwpM0 9mf8R9UawaZ06niABzZCY3 ZBMxVNIqrQCuLLKqSSK1EZ BfqKWqM0gcIQYhOB0xxfab NOkuSXqhGNMuvXC6JVVqvG DhO0WfDYRdIDueJGOigzd1 ZyJgIg9muESzpXeuPPrpMX GtZHKoHQgcFSBrVjHtJF3y X3hLZjBETQEMRMRGCIPTE8 RAID6UWLEJHRZUGH6EY1c7 XHBhclx+ER4etbi+XH4tIE uABZQNKI2JPXzQGTXDHuis MDZMW5FCQyRGNSGMFhFETm SOLaIkCh8ecEOiRR5bqeq+ BA3vfb7iO1WVOYDXFLfBHA LWF0BGFBgDTTJGGIPPF5DI UyBBTkQgVFVCVUxBUiBBVF JPUEhZICh+NzAlKVxwYXIg QJFfCICeKN3VIRJCGUFSAC FSVEVSSUFMIElOVElNQUwg N9FCKKNEV8lXIwohPMRuml x+SD9ddwx+AFJJOOWwV97J MDIFIB1eoBJenKpivnJmNH uej1BxRQbnGIVeTE0snRdj HTTcQS5xFYKiR5umlH9djq j4QmQgYKKoNoR4COKuzqH5 Ohv7SGUaTSaot8zdc2FgMU QiISp8rLebEeReSRDkf5nk cyBcZmNoYXJzZXQwIEFyaW XqE293b3mge0naayKozFF7 OMDwFVL4TGurchRsxhV3KZ bisVGlAaJ5BNnmayMkVRfo hhOdbcByFnl7HLUbY739GB W5bSbwr8hqKSH7DYYlHTSk CuSmHa7diNUgP192EMHuVG EQYOQnoCb3GYTfjpWfysHk kTIAo840X711m8kuXEYxdq CtyVnLbyznc1ovI748PLUa cGVydzEyMjQwXHBhcGVyaD G1CLSkDG5pphjdEVyyZThl UNNpusR7XSEelDKkB0UjYI MiBB7tfbnsDSG0IBbbZYIu BRS6DxQsZFFha7Xqeyq7Db Ifth3fek49NLE6g1YtuQbc VKS2ZSF9YxSvTs4opLGyKJ NuLJ5wGhGsgTKaJZZrit01 sNhgGJdnQPQ2ONFmikHsm8 Wet8jqCbFkmzKwK3inK9Ke ZHJoZWFkXHBnYnJkcmZvb3 Yje4VctNZubYb6n6eeQANz JVXefPxuw4mjBMC7ZXQyzC PsL9kzwL2nINUzFO5vauja n5cvWWjeHGhdMPUgzCN2gw R8IWQgrOEvR5HavB5kTIJk FZpgCYSgvvf1KaSqMb7vpO VyeTcyMFxzYmtwYWdlXHBn bmNvbnRccGduZGVjXHBsYW luXHBsYWluXGYwXGZzMjRc cWxcbGFuZzEwMzNcaGljaF bnLRkuXzFbAOUzPOkcZ0ts IcGwQyQgPxf3EGJbeCWbLN RqAre3BHOeqIBkYVQOdJtp yN8aODLxjNjpmE8ovUZ4BD HrddEjzJHIlN8qDABVbQ9q YnY9JzUcEaV5QAD5KIbmjD FyfX0= COMMENT (test code = k1csyOLtNUOnwCM1PrNuEO 6024) Qll0tsz2MdkMUbuYXqYUbo cMXbdmRwhf54vRS0qS80ZL 6qITKzBfG7XCGbajC6Zrm0 EHIqLJTjtUJaS397p9sjq6 lnezFvsDG7gCtuEDHtkpmg WlO1VYgcMYDkpwvtCOk4KG esKEUbkCO3IPLkaCWfW2Dl MEVwRM8bhut7CVK5ERcrFJ HeZuN1IQIgmAVmBCKvyQby PTpch762OJI7PsVzUVVzim JhvUyxmW1hIoEcMCRIDVKz MBTzqqCdi6OzCaedAKVEOV ggbHVwdXMgbmVwaHJpdGlz YSDjnPu3eIA9RMUyOCYimR ThpcscjYT9IGIwy5Uqxvwg f1deoEMgOOvvLOFhfkXpBh ksIGluIHRoaXMgYmlvcHN5 BILeQAAsnTD0mpGrASPoxg j9uSRqFBM8oFHwdKuhc7Xz vlVfzMEgND7fNQJpJL3jl5 NhcGlsbGFyeSBoeXBlcmNl nSi6xIEewSJ3BYS4sWTqRH ifw8RcOFFnOVJhuyJjhbF9 vNCfNIlnhY5bwMKzoIO0gM 1iWFAgioGbnJxjDRLifu1y aQAozRatj7LeabJoqXWvGC AvMTIuXHBhclxwYXIgUmVm ZXJlbmNlOiBccGFyIEJham VtYSBJTSwgZXQgYWwuICBS GKBey6iaeqQgQfE3eWCmYI 05KUZsQKYrz11sxSCYo7Cb NNQ9BO9sCY3ruLpaj1mpY4 nmAgBxDXdwXMX1aF1ci2e2 WWGeT5ovdHorE2jgf3RlYk eqYWTzy34jNf8sYEt0bEQy SW3wfNvbmQRxtswqX2gyrd lmaWNhdGlvbiBvZiBkZWZp zbo3oA4rukypCY2fER3lOW knxHJbHJ5mkQpkdnGrXAek a3IeqET8KDWby9ChMAQwnC WhIWXcyBu5nPK2MUBoYSLj yBLdponicBO6IUqgWDfkLY ImLQlrJK3hfBECbdOjSRZx IKbaYAJzMetzODKzFmg0TP 03OTYuXHBhclxwYXIgUHJl xXoicB5ntsieQeygUOslE7 Sjc2BfKHUyrEYgnXNdKFMy s7d0qPSPew0nLeA8kkEquP GPuK1djPMajyMjFj9dXQ5i Yb0kBCCgbn0= CPT Code(s) (test code r4zrmZLzZKRvgZN9HdAmBH = 3357) Qnn7joo1TsqAKfiSWiYZmb zYJiuaKstx61tPB1iA47AS 8qZIXsKgU4MBYcfrW5Qld7 OMQgLQEugLBjE485s6nru1 lndzNhaPD5nXhpFYEcfylz YiI3HNltKNIeytxnHNw1PP teQDGwdOG8HWJzmTYwR3Jc ZBIdAF0yyky9KMG4VDnvGB EtMdA6EVKfdXWaQBZrmWwf RGmyb997REF8LtSiOJBfvq YxzYtulG4bDwWqZKP2OPKm IJttXBppCGRjoXPhXFP1SU J4QwR3UIfwULo9VwK8LOgu YXJ9 CLINICAL HISTORY (test u8ovnXOhHYVceKZ6WqBmIF code = 3356) Vjq4sxk2KpgGPurSOtILsv rFXjabGivc45yHP5dA18LI 0zSWMrKnP3DLChjwM5Zgv7 EQEzNDPqpPUcO057h7twn5 buzySytMF5bQddMTVbirmb LyX2DJfgAKFdwwhaZZx6TT szKINpjGE5CRRioCPzM1Cg THUrPR5gyij3XIP7TAryLL SlBxB2YPEzwXAqYOCwnRxl JQrza261TMO3TgWpAALkmo XmcXjchU4vIlCwNJRZdMF0 j3Y3IM1nMSd1mMZhPEUut0 3sFICgMAWlqyStqYR5rsHc YWDdmem4qYKmsWYdwJ== SPECIMEN SOURCE (test c2tubVIeGBKhbMD2FyPpXZ code = 3377) Mub2hit8AzkTTzoFKdRWzs gPKsaiOvgl51dCL1zM62UE 4wTXHcErV7UQZblbU2Jlr9 FFBgRKUygNMfZ980u0tjh8 tanqIxuSV8oVtwSVInmykr TvE2OKssDOIiytviIIl6UM xoICLmpNB5YTFgiRMrR9Lt EUPpKE6olzb1UNM7TKqlDQ SoTvE0PBJjeLImKRVcvRlw YEzlk899GDM4AxJqLHNopt SsyGkmuI1fFsAbFUSUMHH2 NZ7mxWa7NUQmlGIyVHqxIU Bhcn0= GROSS DESCRIPTION (test v6hohGXgKSWbjAXOHIDlL2 code = [id number]) dklxEzRICqaCGzV8Cmsdhl RHrtLU5uDT8bdEuyhQLoxO HdMG0JGAKfUfVaBVPrbPCv hoXcCrUzNWKkrHPmoSD0SS FdMF1raddyHKviMBefRYMj mjN9DFVheFQoT4IbHMHqRH 7cnjfwEUM6ABydvU3fvdIW UxtdRp0rqAEasZvsIzHvQl NoYXJzZXQwXGZuaWwgQXJp BFo8oF7MVnyuB62gt4S2Qy f2MBBqUYHiZ6PmGB9gWBAr xIFaC86MZxkcWSY9EXMICu uaIBWrYM2Jk8umJXDqfALt WXL4ZLccvAGiJFCbVAIeWC s7YYNbHAjzyOYdNP2rsVjs QzplmNfsi2HauHNlOYptZE NzEMNvPTltPSRrCO1KUcNu OZYzXALqRKbaUTz6ICv3UL 9WUyAiICAzMTcwMzQwNiIg GJz6KYmyKC8BVEI1HpFtMd y8ZQP3UAG4HTJeCYQwJkLu XGYgQXJpYWwgXFxmbCBcXG 1ttWmerGPivwSYAyXGVY2v wNprYWJoeG7acDTeKY5LWX ObrTLKLMD3SM0nJAMEFggs eADjMAMjsHdwHIcrjX7uBB 3HXNx2mcUxASRhAPranzHp UJGtEFRimYTomX2zuoKtyr RiQMGxcDVxMTHaqyK4kPRt GLGhf381OLmsWZOfDRRtjP bgyOEdQGbiMNY2zPHuEGIw UJJsBLEsWX45H0PowhFeKE wgbWVkaWNhbCByZWNvcmQg bnVtYmVyLCBhbmQgYWNjZX ZjvW1sPC99uVIgmg3cjLel ZSBcbGluZSBSZWNlaXZlZC KvevUzl5EpGGxtveGdnaIw PBS2CZ0nr15kkLX1sIOymV NjN72eMCIbutEtQ1loEeWq NwxbTE39BMIsYRlbKVfpey a7oUT3lPoodVLiloHkl6Mm vBh5hIKrOFltSPOaoR7rpN 4gQTEuXGxpbmUgXGxpbmUg EfNqNMk1SLWmqD6bk7XefP 6zTWEsQNVkCAOlhxB7uJAn mNMvT59eVZPhwOGhb5CaxP 3uWOToNQHjgXFhypNtUP24 SHUlVXxfOMfulou5oWV2AF 9ll25doUR4rLMryRNuO28u YJC2eKI9SKbySVFtt5pfba Cot2PxwU7yoP7fArr9a3Sm y6NjxoCyh5G9SQaswi2opT luZSBcbGluZSBSZWNlaXZl CMAhowGfrFP3ULSmcWUuxW lkZSBpcyBhIDAuMyBjbSBp maEvZS5oyEehjIYcYJYxLs YgjMbxx0JzQBSqtwPckJnd bVIdsnFsKP48AQLkFZVayT CzPHJobSypizCdQ6OuTH9s lYx7JAzltXKuDONvosJuhV H0jJAbJJKws2Uzv0Ygrumj YGusacRsSQebliKtW5gvyI MdXPXOhcR9wasxZKcMTHDJ ZFFoXRLIVWoepN5ZJEVmOF avFTVmuFJFXFE7IR1jUHng oWSlsoqaYKMtI6IjN0Zxpr VwpHHdTQApumPqd5kvNOY6 XHNsbXVsdDBcZnMxNlxwYX X5KEtta4yjOIJ5AOHrwIZd dDAgDQpcZnMxNntcZXBpY3 RhY1PqduN7LBn1 MICROSCOPIC DESCRIPTION m9jowAPpLWUhkCH8MsMqPV (test code = 3371) Jxs8udo3EfyMSgbQQpHSoh sFYmwtFxjh05lUK2fJ32MN 9xJRDzWkL7CLOisfF0Auc8 HITtSAWlxWSdN314x6jzs7 gtfaHxqBF2yMfgYLNeippj VeY0USviMTUplfbfPHk1VL adLPQjfWI1BVXtpNPaY4Tl OHTaYI8pfvs7JFU0ICibJN YhPeM5JOAubLDtTRIphPji AIqpa624KGX8UhDsDPOysp IoyAlzsY8eYsWuVAUGLVzV STCCROOOV6EXJ6HGPoIoeW SaBASbM5Hqt66qXIBkk5mn HGRob4CierBtVdVqPD1bpT Blv3S5CRbdHW0xJQ0oBPUh bGEuICBcflx+XHBhclx+XH SbiuAGwZ4xIVA0kSh0FTSw cHJveGltYXRlbHkgNDYgZ2 xvbWVydWxpIGFyZSBleGFt bK9zATzyBYZcqXDxNvTwy2 Lbj6wbI6knNZSsYQsdd4Hl gVc2ZRTdsVOwh1EdNd4uHb DjaZKmJ8QwwM6iXGFbhUTb HwYjcD4xBXQ4wYpsxHE4BC IbTShsEU72OUred4FiVSEa i0xzOfSPyQDgmgAlHGbadS 5tINizs60lfaLxrGZgDUCu XYHjX64zpyAraSQepqCtL0 OphSqbOFL2EAq1xWVoK2Lw bHVsYXJpdHksIHdpcmUgbG 7cbNNnfNYprL9hrgHflaMn nERrBO8yxBFpMTp2vBZoF1 SqtCGpSSTptLajCJ6lCSIq UoyufYHdLYVzxFi0kVJoSU LrAJZuSN12pcHnotXpnVJy iyXaMhsjXE4yU69tUCgrl0 1lcnVsdXMgaGFzIGEgZmli nj33udDrlnNlN7NyiX3vDw 7nMDDrn5qayfQlLIZ5BRfi cD4fNSBso9zbFV0iC5MfgT 5gDZjjBpKtjjofnLSdWl0u kYMbTD7cbQBbCWB2InYqRP EdJM1rINuhjTXrb6MhaLn6 rOxhJVloesKmvWRlk7A7KV KxOYpjtNSfr8SguGmloLBn fUEpg1KgreY2fVIuOZD6Dr RcHIZgCIVjy0TqoIP5nVGg BJJjr31tsNY6AREkC6ywn3 3zXxZdbuZipgX6lNOzNYff pS9udRSirGN8d3U7KZTmiB vejT6mfZr0ulZ2mL4bFVZ3 YCb6uFWqa0U5lUBoQAtrml 0okbvuTyPfUa36aWW3IAEi x7BsfUlaTVHagiWxDIPmon ScaO1pSJstZY6koi0jeYOi jSxdYnHlun85pT2cqYP8fF O6wZBvBYMmDJCxB6TaiZvq IGFuZCBoYXZlIHByZXNlcn JbGXXjjtMfwLGmw4YvNFNk XzUbcRYuUA8nhSOmDDFgk0 IlaOR8MCRbAHZynzLrglzb WqYuEPHyGHE2CCDkIBGkmO R5JETrg4LlvdY4NHWfplJh qIFhTPVmcENcj8Lmdb3vKX ilwtLduXNcqA2pGELjsJZz TQQ3ZCRpn1yco2MySUXzb0 avNvNvmTOaJF8ceBBsTOQh JCRiMIsfp5SrnC9oKwUydu 7qe6IsgrW3khiybMKkcZSs DGBXXnZlcyUoHa0oVUUah5 nqohKrKXW4GPdyqzT8ZMWu AN8fO9Ieh8YqkHSwa7OyJB NpdVDyiNtzaqTcOjW5lPnf QRAtw7FseDQmhmBxa0yuc0 FvVAG1zDAxwDKoWFL1ZUlv cW7sJAVltGMxzh0tNA6uCK gfpGUlrjBlJBJssxGvm3em oEdjg1HhEI8zbGUcxIVvcV F0B0J9fgUxXglhUVMiwrll ZTCaOGjvPIV1UKmplPFvk7 AtiA8rQWJvAY8dOKmcuUOp LPbfq4SqpV2peKybEYZGJB U8HJdgYNLnc0RmwPlyizNl rZL4YBFhXI5oro6hQ7atuw 23uIBeQ1malZWwuIu3onSc wzKrGGGdl7Yzq4bzj3Iatl HgV1qmhPKwgUdqJsRlcjhc WVYdyrmpDICgHC3nmT1jXt d4s6Ras4SoolGdJNXkijTt bdzqBhTsrNQpKD5msaf+XH 5cflx+CP9fdfg+EN2xyrx+ OH1ZH3Y2KNTgSyB5h5IjW4 DguSalRPF6ETXoRZIqGAZq atjxFTcgXFpbZW01mKGqNJ UrR5zlTFQofmv+FK5putm+ JR5lypl+TG0nyvo+XH5cfk lnRzogRGlmZnVzZSBjYXBp yRvyrlypGF4wRO6vt7VtF7 ohfVkuS0MwzsOeJFIwEIXx XHBhclx+QF6nqds+XH5cfl x+ER3vxrt+UU4rbmd+SWdN WyAFFFiwLX07QDgaJ7ZvmP tvSCV1VWFdJGSiPSEovbel CAzvJHztXB26aKCfVLOuBi 2zhSIxAC6zdgi+QV5vuip+ YF8vbtj+QJ5bvqu+XH5DMz ogRGlmZnVzZSBjYXBpbGxh wefvNJ7lVV2tq2LcJ1qioH vrK2IkwcQyHPPdUBQcQRWr clx+PV6bjql+GG5lddq+XH 5cflx+DS4cnxx+QzFxOiBE aWZmdXNlIGNhcGlsbGFyeS EkfjTbmDYfRO4fzXHmYAJp cmFudWxhciwgMytccGFyXH 5cflx+NU6fbwg+YL2cxkv+ GY2ward+GN6EcTEjwF9uD9 KlKsSloUHsuNFbVQgtk99f euPeXKFxUvhlCSWhHUJ3dF R0zR1hzhHttpJ5aVOwAJsq d4UgiK4mixehDVfeSQduGh xwYXJcflx+ZY0osbq+XH5c flx+HF0dpkn+KQ5vojjnbZ MuPtVwbaJzTrE9g2WeG0Bj xUqzBMN2XAVlSEGwZBSpbv vvZJmtMIwtGT89oPYiOJFk O6lcWFFfmpa+LQ4oxao+XH 5cflx+KF8spsz+KU2loswh bWJkYTogRGlmZnVzZSBjYX XyyOhhswjsMW0rOE7nq5Sj N4ddxHbnP0SmwsRzODZrRP MrXHBhclx+XHBhciBBbGwg pP8xcPBsl41aoUMvvcCqAx 9ljBFjCMUmYQIcDo2yHDja uEOzr4LkhA9kBUOwEN7iDG BzdGFpbmluZyBoYXZlIGJl PS2ejQTfreyizZNaaMI6XN X0CAJhGP0iTCRlw3ihNOUe OFtmxgRtKYVdih2ratopzF VefcUcS3Rpjgm9bCAuCAaq zFrooQ1yxBHbamHdB20xvZ LxtQUjxPFnpK5rwfOsWAay SBZtkyzkOWQpXJnYD42SF7 RJQyBFTEVDVFJPTiBNSUNS T3UVT3FDXrhiSVCcMNwoT7 wdv1JdmPyvdaQwvJS6m1pg C2y7WHOqfVZtOOmoJWUqvZ AkOTR6ESktGPAvo6UzkAqz mcJgzcO9CXYmSUKqm7VqDY FosSbqOBltx74lnkWqcW5t pRFdBJJmnQSvb7TuuYP1mO XbJeSHeMSbvP3uyVkwsrHl QmO4xEJoF6zrbDFvgWtfoh V2eVFyDOY8lsXzhFObAXNo ZXZlYWxzIHRoYXQgdGhlIG nch09myzWcMZVbMkRkCF7t bnQgbWVtYnJhbmUgYXJlIH IxwnlrLdp3DYEwrMNtPG8m ZSH4xQBjDTtkvS2nrVuqDu KdeuKlsUdwfTgxx9Vrxe5c TnVtZXJvdXMgbWVtYnJhbm 20srBhuiZzeASyWH9mpERp UdMgWFItwGPvQV2tqGPhKH rudVAgHRVms78oqQV7HOM7 yDQqILqrP8Pse39gWQBuu6 CvDXAbn1VtpKOoVQWzCVVv QJZvguZhIIErYPCto8DtwA swtkYyTvA1oCXbELLre1Me iOEadISums94ZWSjHZRrZS C9ZGC9wbO2sBFrUQx8RO5j cWSpVQLqkXLma3Rvgl7zBO upQFJup0StdXSmX9Cty8Ol IGFyZSBleHRlbnNpdmVseS ArTeTtH7TeLlryWUH0 SPECIAL STUDIES (test q6kdgZFqBTInq3wnHSMrnS code = 3376) FuZzEwMzNcZnRuYmpcdWMx XHzhjpRkDVbnq0OsX8RxYt AwMFxhbnNpXGRlZmxhbmcx MJMuETE0cuXbCLAiIAqwSH PiVLqsDe1imXYczNbtHnJo WYXiz0wtkpAVjoccxXe6m6 tnKCGjDyX6bOZyNVwmC9ee riMjiNArH0BvpTZqxBp3v8 bwUeRoPqD4yAByVAldJ3hw lqTvuNNvXRGmFHj6vK17UV FekZ8mfUKiHMlyfpZoLdV1 OSbkAOTvWwY0LVSejATkOI SzE0zrMBLlBSphEOViJAci wLRgSFA2yOxkk4I3tXGpoT TmlAhwPzYtIcYyWiZBd7Bz KTn9yDhvM4KkRYDfXnK9kY QgUGFyYWdyYXBoIEZvbnQ7 yLisvuKuj65vqAIgIGNiNK FgXjEtoScmESRbPLXSo0Js dTlcHOB8iUu1eWpuToalLZ S9Hpd6ZZ9vgc76spv1dGdj YVHzjbpeTrI7EPjkVOBdrq krWKb6NMvwJMDyiFA1ENVs hCEiB2JtFIVoGD6yzdg8ZO E7XFzzQXMyFyR6MNPdjGBs YYLnvEmnMWary111TOU5Lg BfHE3qD4Spa5R9iF3ptIEp FTQwvSQkKsIhLHOlce8msO TiJJzoc8HtXDX3ljO5uLAa hVIzLHOlQZ69Xheqx4VrBo hhq0HrV03auYE4PNqcj2qj VW0qIxY9mpFfCRxfp3ymrD 9bJmW0LWlgKA6mSE2lQLAq xY7yhfuuHXQbCbOxuksuLR WipPiwosOaOa1llFqjJOZ3 XWxcM1hnmP3fOfK0YXeiQ0 bwpJ3vMJg9ZEuvaDI2KOAg cD5sDA7uzsqxz9weGGwgEE zgBRGqltO9meU7SQXbkXFl K7KenP7aDNGiSO2wlusbj1 yuRUY2ONmbBYFaKSZ9QjWb RYHng5Qmcjn8YgZfi2ZwqH MxHBuyX89dz496ZUWosuTh S2eiaAGmoisxhTQqapzcPX wudbA2XUAcRUMeROmlVNQr XGZzMjJcbGFuZzEwMzNcaG ljaFxmMVxkYmNoXGYxXGxv O8hsFuQqD8BeTXYwGyHcCO idYFlkpBTwfLVvyWG5hQ3h MU4gKSBmbQYpI6FzZEOyjz HszGTiDSA3oQObcCCnNK4s DYwbxUPcy1qew7MjC5zhaY chePZ6GT7bCQJeXGKdJHja q1RutF9qIphioDYvdaxeNV xmczIyXGxhbmcxMDMzXGhp H2ijLvSyXYGaiXqfBRbju7 NoXGYxXGNmMlxmczIyXGx0 cmNoXHBhclxwYXJccGxhaW 9dHlItQtAnQwvuVO7eATIb F0rozPUpXTNaQAZiK4sbUr UnjA6pdObpKClwCjOaAbEb PeYIi764xz9cBHIzoTEase JUmGIziN2lGKkkOHnbTOyy jWVuIHehd4qlYBWci0e7oN EsKMDyzoZma7bfTMenapMf VYRshMXfzNSxPCCyg34bWC exzLwjyNlkYBKfd7PumXtk x2ThQiDlPYbmk1ByV38flC JvbCBzbGlkZXMgcnVuIGFs t18ls1oiYDKkZwQ3mROofG Y0vFBpaEAtw9FrkQwxPQTz w9jnRQOnam0yqotxxGSnv3 UsvY8bxvguGPuruEQamxKv DHKee2l0bUGcQDJmNDWqYL prpAi4SXCwe241mt7rwyE2 jMCkEVO6SGzhLQShGDSwje UgZXZhbHVhdGVkXHBsYWlu XGYxXGZzMjJcbGFuZzEwMz NcaGljaFxmMVxkYmNoXGYx QRzsF0imJfQkR6TrVKZtRb XktIZaH6ctsDLlACIdFEon XGYxXGZzMjJcbGFuZzEwMz NcaGljaFxmMVxkYmNoXGYx HRepZ9ttCsBcO9JyTFPdJq IgIFxwbGFpblxmMVxmczIy GSwfwjbwWHJgPXebG6ylEx ZmOQXxaResQIpzo6VqDVZu VAUmKdmymaEcPCs5nkVxIT BhclxwbGFpblxmMVxmczIy RGxnejayGTUnFQmfN5yyAj GzCBAfnSopMJbie0KaOVXj XGNmMlxmczIyIEltbXVub2 btf6RnG8dnqXmlyDK1PQNk E4xpiLFanNG9WEA8nC7oXF wzwlFzPXMks1WaHGBcSDIt NmP6rQ4hYFC2YjTUlXvlMT BsYWluXGYxXGZzMjJcbGFu ZzEwMzNcaGljaFxmMVxkYm TrZBVkFYoqR3kaIsGlI4Og WAPvJcGjtYymOTovEZy6Zd xwbGFpblxmMVxmczIyXGxh eulwSHGcSBxbM4eaIoBhLM LxgCelEJepd5IrMKHhFEFp MlxmczIyIHMgTWVkaWNhbC IFDH75NTQiAYHilGuesN2z sGVQZXKpqqV7r5L7RUmmDO ZsVSz3APtvjaEiTVBzqY7e FUBrUA9gMXm5lmXyKKJgn5 AbUO8vGGHkhNRvBVS4UEQk h5BcF4Ncr7AuHYXyQUEttl 0nnvXcNxUTvBNpDSSapw45 TEYeCD4wW2doUPDeCPAxns MihPWpo4FnQZYdmMB1yBCz NI5CDhAKc20rXWWyDWNTiz KmNFHtgGpalKP6omN3nD8z LiBUaGUgRkRBIGhhcyBkZX Xpka0gwbVjAQZrDSAtu2Zj sMRhiAUkumLdN4Gvw7TsOK Nchp60LAlvjHLttt84OZ6l L6Alq6NetX8uNSdsLCRfi7 CsnCPmrMFnLXAlm3TeQ6ba phqoRUqveYJdaC0yCBWcDM y4QQQjw9WvPFLmh3WzMpLu leMrSWOdPFXdOQVnwD31RX T8oErmfSncdeXmBT3hSAYf qfVyWEFiGPAqnI6qQEnuyq KjICWhemR2o6A6JMasHJBu ymKlAsszRHA1lbRhnyI1jI NhK4lirrqeYNzxLHXuz3Zh iJ5xuALIxEEut2DqxHAmmX LUkKZxJL6zwgCnDX9tUVX8 ODggKENMSUEtODgpIGFzIH Q8GSvqAyaqMFZ7wgZtEFOs u4PzYFlkS7qfJ12mfQutzO k2yLOylXrpzPMsnTLvBZCb koR9o6J8CAEjk6LczqluNL BsYWluXGYyXGZzMjJcbGFu ZzEwMzNcaGljaFxmMlxkYm HeDYKtMLmuG0aaWsWbJrDr HuyoBDZ1wX== Gross assessment was [facility] performed at [facility], = 2777) Department of Pathology, [address] [place] [address], Technical component was [facility] performed at ([facility], = 6190) Department of Pathology, [address] [place] [address], Professional component [facility] was performed at ([facility], code = 1871) Department of Pathology, [address] [place] [address], [facility] [id number] 19:14:24Surgical Pathology Report Case: [id number] Authorizing Provider: Armando Chandra MD Collected: 08/18/2022 02:16 PM Ordering Location: [address] Received: 08/18/2022 02:16 PM Service Pathologist: Shana Corona MD Specimen: Renal, Left, US Guided Left Kidney Biopsy-[place] A. KIDNEY, LEFT, CORE NEEDLE BIOPSY: - LUPUS NEPHRITIS, ISN/RPS CLASS IV AND V. 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 - SEE COMMENT. Signing Pathologist Direct PhoneLine: [phone] signed by Shana Corona MD on 08/21/2022 at 7:14 PMBased on modified NIH lupus nephritis activity and chronicity scoring system (see ref.), in this biopsy the lupus nephritis activity score is 9/24 (endocapillary hypercellularity, wire loops and interstitial inflammation)and the chronicity score is 10/12.Reference: [place], et al. Revision of the International Societyof Nephrology/Renal Pathology Society classification for lupus nephritis: clarification of definitions, and modified National Institutes of Health activity and chronicity indices. Kidney Int. 2018 Apr;93(4):789-796.Preliminary findings were discussed with Dr. Armando Chandra on 08/19/22. 48920, 09812 x 3, 47407 x 8, 76415 History of lupus, concern for lupus nephritisLeft [place] kidney A. Renal, Left.The specimen is received in three containers, all labeled with the patient's name, medical record number, and accession number.Received in formalin are 4 adam soft tissue cores ranging 0.8-1.6 cm in lengthwhich are submitted in toto in A1.Received in saline are 2 adam tissue cores measuring 1.0 cm and 0.4cm in length adam soft tissue core that is frozen for immunofluorescent studies.Received in glutaraldehyde is a 0.3 cm in length adam soft tissue core that is sent to [facility] lab for further processing.SHAMA Garcia, OSMAN ([facility])cmLIGHT MICROSCOPY: Sections show 4 cores of renal cortex and medulla. Glomeruli: Approximately 46 glomeruli are examined, about 36 of which are globally sclerotic/obsolescent. About 3 glomeruli have segmental sclerosis. The remaining glomeruli have segmental endocapillary hypercellularity, wire loops lesions and mesangial hypercellularity. No definite cellular crescents are identified. One glomerulus has a fibrous crescent. Colón silver staining shows occasional "pinholes". Tubules and interstitium: There is severe interstitial fibrosis with tubular atrophy with associated chronic interstitial inflammatory cell infiltration by lymphocytes involving about 70% of the renal cortex. The non-atrophic proximal tubules are ectatic and have preserved brush borders. Vessels: The interlobular arteries have moderate intimal sclerosis. There is moderate arteriolosclerosis. Special stains: Hector trichrome, PAS and Colón silver stains were necessary for evaluation of this biopsy and showed expected staining patterns of internal control tissue matrix structures.Direct Immunofluorescence:Histology: H&E- stained sections have 1 non-sclerotic glomerulus and 11obsolescent glomeruli. Immunofluorescence findings: IgA: Diffuse capillary and mesangial, granular, 2+ IgG: Diffuse capillary and mesangial, granular, 3+ IgM: Segmental capillary and mesangial, granular, 3+. C3: Diffuse capillary and mesangial, granular, 3+ C1q: Diffuse capillary and mesangial, granular, 3+ Fibrinogen: diffuse glomerular 2+, and tubulointerstitial staining, weak . [place]: Diffuse capillary and mesangial, granular, 3+ Lambda: Diffuse capillary and mesangial, granular, 3+ All polyclonal antibodies used for immunofluorescence staining have been previously tested and shown to have appropriate reactivities with positive control specimens. DIAGNOSTIC ELECTRON MICROSCOPY:Thick section histology: Toluidine blue-stained sections reveal 2 sclerotic glomeruli.Ultrastructure: Examination of the glomerular ultrastructure reveals that the glomerular basement membrane are variably thickened with wrinkling and hyalinosis. Numerous membranous and mesangial/ paramesangial immune complex type electron dense deposits are present. The location of the deposits is not clear due to the extensive sclero sis. The foot processes are extensively effaced.The interpretation of this case included the use of immunohistochemistry or special stains.Control Slides Examined: In-house known positive controls wereevaluated along with the test tissue. These control slides run alongside of the patients sample show appropriate staining. Internal positive and negative controls when available are evaluated Immunohistochemistry technical testing was performed at [facility], Pathology Laboratorywhere it was developed and its performance characteristics were determined. It has not been cleared or approved by the U.S. Food and Drug Administration. The FDA has determined that such clearance or approval is not necessary. The test is used for clinical purposes. It should not be regarded as investigational or for research. This laboratory is certified under the Clinical Laboratory Improvement Amendments of 1988 (CLIA-88) as qualified to perform high complexity clinical laboratory testing.[facility], Department of Pathology, [address] [place] [address], [facility], Department of Pathology, [address] [place] [address], [facility], Department of Pathology, [address] [place] [address], HYBB-GLUCOSE [id number] 18:15:55 Test Item Value Reference Range Interpretation Comments POC-GLUCOSE METER 269 mg/dL 70-110 H : TESTED A T [facility] 6720 (BEAKER) (test code = HENRRY [facility], 1538) [id number]: Pharmacists/Techni maris ID = [id number] for Ladi Le LUPUS ANTICOAGULANT SCREEN WITH REFLEX TO [id number] 15:08:06 Test Item Value Reference Range Interpretation Comments DRVV SCREEN RATIO 0.92 <1.20 (BEAKER) (test code = 2707) DRVV INTERPRETATION Negative screen for (BEAKER) (test code Lupus Anticoagulant = 2406) PROTIME (BEAKER) 14.0 seconds 11.9-14.2 (test code = 759) INR (BEAKER) (test 1.11 See_Comment [Automat ed code = 370) message] The system which generated this result transmitted reference range : <=5.90. The reference range was not used to interpret this result as normal/abnormal . PARTIAL 27.0 seconds 22.5-36.0 THROMBOPLASTIN TIME (BEAKER) (test code = 760) PTT-LA (BEAKER) 35.6 32.0-41.8 (test code = 1163680404) [id number] Bj Ochoa M.D. (BEAKER) (test code (electonic = 2610) signature) POCT-GLUCOSE [id number] 12:51:08 Test Item Value Reference Range Interpretation Comments POC-GLUCOSE METER 191 mg/dL 70-110 H : TESTED A T [facility] 6720 (BEAKER) (test code = [facility], 1538) 95297: Pharmacists/Techni maris ID = [id number] for Jyoti Leylynn POCT-GLUCOSE [id number] 08:34:36 Test Item Value Reference Range Interpretation Comments POC-GLUCOSE METER 127 mg/dL 70-110 H : TESTED A T [facility] 6720 (BEAKER) (test code = [facility], 1538) 03195: Pharmacists/Techni maris ID = [id number] for Ada mancini Ladi COMPREHENSIVE METABOLIC [id number] 06:23:13 Test Item Value Reference Range Interpretation Comments TOTAL PROTEIN 4.8 gm/dL 6.0-8.3 L (BEAKER) (test code = 770) ALBUMIN (BEAKER) 2.6 g/dL 3.5-5.0 L (test code = 1145) ALKALINE 102 U/L 40-150 PHOSPHATASE (BEAKER) (test code = 346) BILIRUBIN TOTAL 0.3 mg/dL 0.2-1.2 (BEAKER) (test code = 377) SODIUM (BEAKER) 140 meq/L 136-145 (test code = 381) POTASSIUM (BEAKER) 4.6 meq/L 3.5-5.1 (test code = 379) CHLORIDE (BEAKER) 112 meq/L 98-107 H (test code = 382) CO2 (BEAKER) (test 18 meq/L 22-29 L code = 355) BLOOD UREA 63 mg/dL 7-21 H NITROGEN (BEAKER) (test code = 354) CREATININE 5.80 mg/dL 0.57-1.25 H (BEAKER) (test code = 358) GLUCOSE RANDOM 162 mg/dL 70-105 H (BEAKER) (test code = 652) CALCIUM (BEAKER) 6.5 mg/dL 8.4-10.2 L (test code = 697) AST (SGOT) 25 U/L 5-34 (BEAKER) (test code = 353) ALT (SGPT) 27 U/L 6-55 (BEAKER) (test code = 347) EGFR (BEAKER) 9 Interpretatio n of eGFR (test code = [...] not appl icable for dialysis patien ts Pharmacists ID - [id number] 06:19:51 Test Item Value Reference Range Interpretation Comments MAGNESIUM (BEAKER) (test code = 1.8 mg/dL 1.6-2.6 627) Pharmacists ID - [id number] 06:19:51 Test Item Value Reference Range Interpretation Comments PHOSPHORUS (BEAKER) (test code = 3.3 mg/dL 2.3-4.7 604) Pharmacists ID - MARCOCALCIUM, [id number] 04:58:57 Test Item Value Reference Range Interpretation Comments CALCIUM IONIZED (BEAKER) (test 0.84 mmol/L 1.12-1.27 L code = 698) PH, BLOOD (BEAKER) (test code = 7.33 1810) CBC W/PLT COUNT & AUTO [id number] 04:41:03 Test Item Value Reference Range Interpretation Comments WHITE BLOOD CELL COUNT 9.9 K/ L 3.5-10.5 (BEAKER) (test code = 775) RED BLOOD CELL COUNT 3.82 M/ L 3.93-5.22 L (BEAKER) (test code = 761) HEMOGLOBIN (BEAKER) 9.1 GM/DL 11.2-15.7 L (test code = 410) HEMATOCRIT (BEAKER) 29.4 % 34.1-44.9 L (test code = 411) MEAN CORPUSCULAR 77 fL 79-95 L VOLUME (BEAKER) (test code = 753) MEAN CORPUSCULAR 23.8 pg 25.6-32.2 L HEMOGLOBIN (BEAKER) (test code = 751) MEAN CORPUSCULAR 31.0 GM/DL 32.2-35.5 L HEMOGLOBIN CONC (BEAKER) (test code = 752) RED CELL DISTRIBUTION 22.5 % 11.7-14.4 H WIDTH (BEAKER) (test code = 412) PLATELET COUNT 118 K/CU MM 150-450 L (BEAKER) (test code = 756) MEAN PLATELET VOLUME Unable to report due (BEAKER) (test code = to abn ormal Platelet 754) population distribution. NUCLEATED RED BLOOD 0 /100 WBC 0-0 CELLS (BEAKER) (test code = 413) NEUTROPHILS RELATIVE 82 % PERCENT (BEAKER) (test code = 429) LYMPHOCYTES RELATIVE 4 % PERCENT (BEAKER) (test code = 430) MONOCYTES RELATIVE 10 % PERCENT (BEAKER) (test code = 431) EOSINOPHILS RELATIVE 0 % PERCENT (BEAKER) (test code = 432) BASOPHILS RELATIVE 0 % PERCENT (BEAKER) (test code = 437) NEUTROPHILS ABSOLUTE 8.12 K/ L 1.56-6.13 H COUNT (BEAKER) (test code = 670) LYMPHOCYTES ABSOLUTE 0.41 K/ L 1.18-3.74 L COUNT (BEAKER) (test code = 414) MONOCYTES ABSOLUTE 0.94 K/ L 0.24-0.36 H COUNT (BEAKER) (test code = 415) EOSINOPHILS ABSOLUTE 0.00 K/ L 0.04-0.36 L COUNT (BEAKER) (test code = 416) BASOPHILS ABSOLUTE 0.02 K/ L 0.01-0.08 COUNT (BEAKER) (test code = 417) IMMATURE 4.30 % 0.00-1.00 H GRANULOCYTES-RELATIVE PERCENT (BEAKER) (test code = 2801) POCT-GLUCOSE [id number] 22:25:49 Test Item Value Reference Range Interpretation Comments POC-GLUCOSE METER 280 mg/dL 70-110 H : TESTED A T [facility] 6720 (BEAKER) (test code = [facility] [place], 1538) [address]: Pharmacists/Techni maris ID = [id number] for Aleah Anand CBC (HEMOGRAM ONLY)2022-08-20 18:34:37 Test Item Value Reference Range Interpretation Comments WHITE BLOOD CELL COUNT (BEAKER) 10.1 K/ L 3.5-10.5 (test code = 775) RED BLOOD CELL COUNT (BEAKER) 3.63 M/ L 3.93-5.22 L (test code = 761) HEMOGLOBIN (BEAKER) (test code = 8.7 GM/DL 11.2-15.7 L 410) HEMATOCRIT (BEAKER) (test code = 28.5 % 34.1-44.9 L 411) MEAN CORPUSCULAR VOLUME (BEAKER) 79 fL 79-95 (test code = 753) MEAN CORPUSCULAR HEMOGLOBIN 24.0 pg 25.6-32.2 L (BEAKER) (test code = 751) MEAN CORPUSCULAR HEMOGLOBIN CONC 30.5 GM/DL 32.2-35.5 L (BEAKER) (test code = 752) RED CELL DISTRIBUTION WIDTH 23.3 % 11.7-14.4 H (BEAKER) (test code = 412) PLATELET COUNT (BEAKER) (test 143 K/CU MM 150-450 L code = 756) NUCLEATED RED BLOOD CELLS 1 /100 WBC 0-0 H (BEAKER) (test code = 413) POCT-GLUCOSE [id number] 16:39:29 Test Item Value Reference Range Interpretation Comments POC-GLUCOSE METER 234 mg/dL 70-110 H : TESTED A T [facility] 6720 (BEAKER) (test code = [facility] [place], 1538) [address]: Pharmacists/Techni maris ID = [id number] for Melba Cook CT, [id number] 13:15:00Unlisted Reason for Exam - Click Yes and Enter Reason Below->YesUnlisted Reason for Exam->s/p renal biopsy, now with acuteu drop in hemoglobinProtocol Please Specify:->Standard ProtocolWill this procedure require oral contrast?->No [facility] CENTERName: BRIANNA NIETO : 1990 Sex: FFINAL REPORT CT, ABDOMEN \\T\\ PELVIS, WITHOUT IV CONTRAST CLINICAL HISTORY: Unlisted Reason for Exams/p renal biopsy, now with acuteu drop in hemoglobin Technique: Multiple axial images of the abdomen and pelvis were performed without contrast. Coronal and sagittal reformats obtained.Oral contrast was not administered. This exam was performed according to our departmental dose-optimization program, which includes automated exposure control, adjustment of the mA and/or kV according to patient size and/or use of the iterative reconstruction technique. COMPARISON: CT abdomen/pelvis 04/05/2022. FINDINGS:ABSENCE OF INTRAVENOUS CONTRAST DECREASES SENSITIVITY FOR DETECTION OF FOCAL LESIONS AND VASCULAR PATHOLOGY. LOWER CHEST:Trace bilateral pleural effusions. Scattered subsegmental atelectasis is seen in both lungs. Cardiomegaly. HEPATOBILIARY: Normal. Cholelithiasis without additionalfindings of acute cholecystitis.PANCREAS: Normal. SPLEEN: Normal.ADRENAL GLANDS: Normal.KIDNEYS URETERS: Nonspecific bilateral perinephric stranding. There is only a very trace left perinephric stranding/hemorrhage (annotated on axial images 39-40).URINARY BLADDER: Normal.REPRODUCTIVE ORGANS: Intrauterine device noted. GASTROINTESTINAL/MESENTERY: Left lower quadrant colostomy redemonstrated. PERITONEUM/RETROPERITONEUM: No free air. Trace ascites. VESSELS: Vascular calcifications. LYMPH NODES: No abdominal or pelvic lymphadenopathy.SOFT TISSUES: Midline incision. Anasarca.BONES: No suspicious osseous lesion. Other: None IMPRESSION:1.Minimal/trace left retroperitoneal hemorrhage. No large hematoma to account for the patient's acute anemia.2.Cholelithiasis without additional findings for cholecystitis.3.Redemonstrated left lower quadrant ostomy.4.Volume overload state with anasarca, trace ascites, trace bilateral pleural effusions.5.Please see additional findings in the body of the report. Signed:Lisa Ashraf MDReport Verified Date/Time: 08/20/2022 13:15:53 ANTI-DNA TITER 2022-08-20 11:15:21 Test Item Value Reference Range Interpretation Comments ANTI-DNA TITER (BEAKER) (test code = :160 1553) DOUBLE-STRANDED DNA (DSDNA) [id number] 11:15:15 Test Item Value Reference Range Interpretation Comments ANTI-DNA DS (BEAKER) (test code = Positive Negative 1055) CBC (HEMOGRAM ONLY)2022-08-20 08:50:25 Test Item Value Reference Range Interpretation Comments WHITE BLOOD CELL COUNT (BEAKER) 8.5 K/ L 3.5-10.5 (test code = 775) RED BLOOD CELL COUNT (BEAKER) 2.83 M/ L 3.93-5.22 L (test code = 761) HEMOGLOBIN (BEAKER) (test code = 6.2 GM/DL 11.2-15.7 L 410) HEMATOCRIT (BEAKER) (test code = 21.1 % 34.1-44.9 L 411) MEAN CORPUSCULAR VOLUME (BEAKER) 75 fL 79-95 L (test code = 753) MEAN CORPUSCULAR HEMOGLOBIN 21.9 pg 25.6-32.2 L (BEAKER) (test code = 751) MEAN CORPUSCULAR HEMOGLOBIN CONC 29.4 GM/DL 32.2-35.5 L (BEAKER) (test code = 752) RED CELL DISTRIBUTION WIDTH 22.5 % 11.7-14.4 H (BEAKER) (test code = 412) PLATELET COUNT (BEAKER) (test 131 K/CU MM 150-450 L code = 756) NUCLEATED RED BLOOD CELLS 1 /100 WBC 0-0 H (BEAKER) (test code = 413) POCT-GLUCOSE [id number] 08:31:49 Test Item Value Reference Range Interpretation Comments POC-GLUCOSE METER 132 mg/dL 70-110 H : TESTED A T [facility] 6720 (BEAKER) (test code = HENRRY [facility], 1538) 59037: Pharmacists/Techni maris ID = [id number] for Ladi Le Screen, [id number] 06:00:59 Test Item Value Reference Range Interpretation Comments Preg Test, Ur (test code = 2112-1) Negative Negative Lab Interpretation (test code = Normal 85699-6) [facility] HospitalPREGNANCY SCREEN, [id number] 06:00:59 Test Item Value Reference Range Interpretation Comments TEST URINE (BEAKER) (test Negative Negative code = 583) COMPREHENSIVE METABOLIC [id number] 05:48:55 Test Item Value Reference Range Interpretation Comments TOTAL PROTEIN 4.5 gm/dL 6.0-8.3 L (BEAKER) (test code = 770) ALBUMIN (BEAKER) 2.5 g/dL 3.5-5.0 L (test code = 1145) ALKALINE 92 U/L 40-150 PHOSPHATASE (BEAKER) (test code = 346) BILIRUBIN TOTAL 0.2 mg/dL 0.2-1.2 (BEAKER) (test code = 377) SODIUM (BEAKER) 137 meq/L 136-145 (test code = 381) POTASSIUM (BEAKER) 4.0 meq/L 3.5-5.1 (test code = 379) CHLORIDE (BEAKER) 109 meq/L 98-107 H (test code = 382) CO2 (BEAKER) (test 21 meq/L 22-29 L code = 355) BLOOD UREA 63 mg/dL 7-21 H NITROGEN (BEAKER) (test code = 354) CREATININE 5.75 mg/dL 0.57-1.25 H (BEAKER) (test code = 358) GLUCOSE RANDOM 168 mg/dL 70-105 H (BEAKER) (test code = 652) CALCIUM (BEAKER) 6.4 mg/dL 8.4-10.2 L (test code = 697) AST (SGOT) 19 U/L 5-34 (BEAKER) (test code = 353) ALT (SGPT) 18 U/L 6-55 (BEAKER) (test code = 347) EGFR (BEAKER) 9 Interpretatio n of eGFR (test code = [...] not appl icable for dialysis patien ts Pharmacists ID - [id number] 05:45:04 Test Item Value Reference Range Interpretation Comments PHOSPHORUS (BEAKER) (test code = 3.4 mg/dL 2.3-4.7 604) Pharmacists ID - [id number] 05:45:03 Test Item Value Reference Range Interpretation Comments MAGNESIUM (BEAKER) (test code = 1.7 mg/dL 1.6-2.6 627) Pharmacists ID - BSCBC W/PLT COUNT & AUTO [id number] 05:38:47 Test Item Value Reference Range Interpretation Comments WHITE BLOOD CELL COUNT 8.6 K/ L 3.5-10.5 (BEAKER) (test code = 775) RED BLOOD CELL COUNT 3.09 M/ L 3.93-5.22 L (BEAKER) (test code = 761) HEMOGLOBIN (BEAKER) 6.8 GM/DL 11.2-15.7 L (test code = 410) HEMATOCRIT (BEAKER) 22.6 % 34.1-44.9 L (test code = 411) MEAN CORPUSCULAR 73 fL 79-95 L VOLUME (BEAKER) (test code = 753) MEAN CORPUSCULAR 22.0 pg 25.6-32.2 L HEMOGLOBIN (BEAKER) (test code = 751) MEAN CORPUSCULAR 30.1 GM/DL 32.2-35.5 L HEMOGLOBIN CONC (BEAKER) (test code = 752) RED CELL DISTRIBUTION 22.4 % 11.7-14.4 H WIDTH (BEAKER) (test code = 412) PLATELET COUNT 151 K/CU MM 150-450 (BEAKER) (test code = 756) MEAN PLATELET VOLUME Unable to report due (BEAKER) (test code = to abn ormal Platelet 754) population distribution. NUCLEATED RED BLOOD 1 /100 WBC 0-0 H CELLS (BEAKER) (test code = 413) NEUTROPHILS RELATIVE 81 % PERCENT (BEAKER) (test code = 429) LYMPHOCYTES RELATIVE 6 % PERCENT (BEAKER) (test code = 430) MONOCYTES RELATIVE 10 % PERCENT (BEAKER) (test code = 431) EOSINOPHILS RELATIVE 0 % PERCENT (BEAKER) (test code = 432) BASOPHILS RELATIVE 0 % PERCENT (BEAKER) (test code = 437) NEUTROPHILS ABSOLUTE 6.98 K/ L 1.56-6.13 H COUNT (BEAKER) (test code = 670) LYMPHOCYTES ABSOLUTE 0.53 K/ L 1.18-3.74 L COUNT (BEAKER) (test code = 414) MONOCYTES ABSOLUTE 0.88 K/ L 0.24-0.36 H COUNT (BEAKER) (test code = 415) EOSINOPHILS ABSOLUTE 0.00 K/ L 0.04-0.36 L COUNT (BEAKER) (test code = 416) BASOPHILS ABSOLUTE 0.01 K/ L 0.01-0.08 COUNT (BEAKER) (test code = 417) IMMATURE 2.80 % 0.00-1.00 H GRANULOCYTES-RELATIVE PERCENT (BEAKER) (test code = 2801) CALCIUM, [id number] 05:18:35 Test Item Value Reference Range Interpretation Comments CALCIUM IONIZED (BEAKER) (test 0.94 mmol/L 1.12-1.27 L code = 698) PH, BLOOD (BEAKER) (test code = 7.41 1810) POCT-GLUCOSE [id number] 20:17:02 Test Item Value Reference Range Interpretation Comments POC-GLUCOSE METER 197 mg/dL 70-110 H : TESTED A T [facility] 6720 (BEAKER) (test code = [facility], 1538) 26033: Pharmacists/Techni maris ID = [id number] for ANDREW BOWIE POCT-GLUCOSE [id number] 18:21:35 Test Item Value Reference Range Interpretation Comments POC-GLUCOSE METER 199 mg/dL 70-110 H : TESTED A T [facility] 6720 (BEAKER) (test code [facility], = 1538) [address]7623: Pharmacists/Techni maris ID = [id number] for JUAN LUIS [place] HEPATITIS PANEL, [id number] 12:57:30 Test Item Value Reference Range Interpretation Comments HEPATITIS A IGM ANTIBODY (BEAKER) Nonreactive Nonreactive (test code = 498) HEPATITIS B CORE IGM ANTIBODY Nonreactive Nonreactive (BEAKER) (test code = 645) HEPATITIS C ANTIBODY (BEAKER) Nonreactive Nonreactive (test code = 367) HEPATITIS B SURFACE ANTIGEN (2) Nonreactive Nonreactive (BEAKER) (test code = 2585) Pharmacists ID - ELLA DPOCT-GLUCOSE [id number] 12:44:56 Test Item Value Reference Range Interpretation Comments POC-GLUCOSE METER 185 mg/dL 70-110 H : TESTED A T [facility] 6720 (BEAKER) (test code [facility], = 1538) [id number]: Pharmacists/Techni maris ID = [id number] for DAVIDNiles JUAN LUIS ALEXANDER BASIC METABOLIC [id number] 12:26:21 Test Item Value Reference Range Interpretation Comments SODIUM (BEAKER) 140 meq/L 136-145 (test code = 381) POTASSIUM 4.1 meq/L 3.5-5.1 (BEAKER) (test code = 379) CHLORIDE (BEAKER) 111 meq/L 98-107 H (test code = 382) CO2 (BEAKER) 17 meq/L 22-29 L (test code = 355) BLOOD UREA 52 mg/dL 7-21 H NITROGEN (BEAKER) (test code = 354) CREATININE 5.56 mg/dL 0.57-1.25 H (BEAKER) (test code = 358) GLUCOSE RANDOM 164 mg/dL 70-105 H (BEAKER) (test code = 652) CALCIUM (BEAKER) 7.0 mg/dL 8.4-10.2 L (test code = 697) EGFR (BEAKER) 10 Interpretatio n of eGFR (test code = [...] not appl icable for dialysis patien ts Pharmacists ID - Oneil MCBC W/PLT COUNT & AUTO [id number] 12:06:35 Test Item Value Reference Range Interpretation Comments WHITE BLOOD CELL COUNT 8.2 K/ L 3.5-10.5 (BEAKER) (test code = 775) RED BLOOD CELL COUNT 3.45 M/ L 3.93-5.22 L (BEAKER) (test code = 761) HEMOGLOBIN (BEAKER) 7.7 GM/DL 11.2-15.7 L (test code = 410) HEMATOCRIT (BEAKER) 25.1 % 34.1-44.9 L (test code = 411) MEAN CORPUSCULAR 73 fL 79-95 L VOLUME (BEAKER) (test code = 753) MEAN CORPUSCULAR 22.3 pg 25.6-32.2 L HEMOGLOBIN (BEAKER) (test code = 751) MEAN CORPUSCULAR 30.7 GM/DL 32.2-35.5 L HEMOGLOBIN CONC (BEAKER) (test code = 752) RED CELL DISTRIBUTION 22.6 % 11.7-14.4 H WIDTH (BEAKER) (test code = 412) PLATELET COUNT 173 K/CU MM 150-450 (BEAKER) (test code = 756) MEAN PLATELET VOLUME Unable to report due (BEAKER) (test code = to abn ormal Platelet 754) population distribution. NUCLEATED RED BLOOD 2 /100 WBC 0-0 H CELLS (BEAKER) (test code = 413) NEUTROPHILS RELATIVE 83 % PERCENT (BEAKER) (test code = 429) LYMPHOCYTES RELATIVE 6 % PERCENT (BEAKER) (test code = 430) MONOCYTES RELATIVE 9 % PERCENT (BEAKER) (test code = 431) EOSINOPHILS RELATIVE 0 % PERCENT (BEAKER) (test code = 432) BASOPHILS RELATIVE 0 % PERCENT (BEAKER) (test code = 437) NEUTROPHILS ABSOLUTE 6.79 K/ L 1.56-6.13 H COUNT (BEAKER) (test code = 670) LYMPHOCYTES ABSOLUTE 0.45 K/ L 1.18-3.74 L COUNT (BEAKER) (test code = 414) MONOCYTES ABSOLUTE 0.76 K/ L 0.24-0.36 H COUNT (BEAKER) (test code = 415) EOSINOPHILS ABSOLUTE 0.00 K/ L 0.04-0.36 L COUNT (BEAKER) (test code = 416) BASOPHILS ABSOLUTE 0.00 K/ L 0.01-0.08 L COUNT (BEAKER) (test code = 417) IMMATURE 2.20 % 0.00-1.00 H GRANULOCYTES-RELATIVE PERCENT (BEAKER) (test code = 2801) PROTHROMBIN [id number] 12:06:17 Test Item Value Reference Range Interpretation Comments PROTIME (BEAKER) 13.8 seconds 11.9-14.2 (test code = 759) INR (BEAKER) (test 1.13 See_Comment [Automat ed message] code = 370) The system avocadostore generated this result transmitted ref erence range: <=5.90. The reference range was not used to int erpret this result as normal/abnormal . RECOMMENDED COUMADIN/WARFARIN INR THERAPY RANGESSTANDARD DOSE: 2.0 - 3.0 Includes: PROPHYLAXIS for venous thrombosis, systemic embolization; TREATMENT for venous thrombosis and/or pulmonary embolus.HIGH RISK: Target INR is 2.5-3.5 for patients with mechanical heart valves.CARDIOLIPIN ANTIBODIES, IGG AND IGM 2022-08-19 10:39:26 Test Item Value Reference Range Interpretation Comments ANTICARDIOLIPIN IGG ANTIBODY (BEAKER) < GPL <20.0 (test code = 712) ANTICARDIOLIPIN IGM ANTIBODY (BEAKER) < MPL <20.0 (test code = 713) Anticardiolipin IgG Result Interpretation: <20.0 GPL Normal>/= 20.0 GPL PositiveAnticardiolipin IgM Result Interpretation: <20.0 MPL Normal>/= 20.0 MPL PositivePOCT-GLUCOSE [id number] 08:36:44 Test Item Value Reference Range Interpretation Comments POC-GLUCOSE METER 139 mg/dL 70-110 H : TESTED A T [facility] 6720 (BEAKER) (test code [facility], = 1538) [address]: Pharmacists/Techni maris ID = [id number] for JUAN LUIS ROCKWELL HEMOGLOBIN AND [id number] 21:55:12 Test Item Value Reference Range Interpretation Comments HEMOGLOBIN (BEAKER) (test code = 7.5 GM/DL 11.2-15.7 L 410) HEMATOCRIT (BEAKER) (test code = 24.8 % 34.1-44.9 L 411) Pharmacists ID - [id number]-GLUCOSE [id number] 21:14:30 Test Item Value Reference Range Interpretation Comments POC-GLUCOSE METER 192 mg/dL 70-110 H : TESTED A T [facility] 6720 (BEAKER) (test code = HENRRY Fitzgerald [facility], 1538) [address]: Pharmacists/Techni maris ID = [id number] for Ng Aleah whitley POCT-GLUCOSE [id number] 18:06:14 Test Item Value Reference Range Interpretation Comments POC-GLUCOSE METER 127 mg/dL 70-110 H : TESTED A T [facility] 6720 (BEAKER) (test code = ROSYTN Lia [facility], 1538) 74[address]: Pharmacists/Techni maris ID = [id number] for SA NTOS, ESPERANZA U/S, BIOPSY, RENAL (KIDNEY)2022-08-18 15:57:00Reason for exam:->History of lupus, [facility] 1990 Sex: FFINAL REPORT PROCEDURE: Image guided non target left renal Biopsy CLINICAL HISTORY: History of lupus, concern for lupus nephritis DUMP OPERATOR: Lisa Ashraf MD ANESTHESIA: Patient was reassessed immediately prior to the administration of moderate sedation. Versed IV 1 mg, Fentanyl IV 50 mcg was used for moderate sedation monitored under my direction. Total intraservice time of sedation was 30 minutes. The patient's vital signs were monitored throughout the procedure were recorded in the patient's medical record by the nurse. Presedation reassessment of the patient, including vital signs, status, consciousness and orientation, and relevant laboratory results was completed immediately before the recorded preprocedure timeout as documented in the electronic medical record for this procedure. Moderate sedation was then administered. DEVICE: 18g BioPince Estimated Blood Loss: < 5cc Samples: As below. PROCEDURE: The risks, benefits, and alternatives to the procedure were discussed with the patient/healthcare proxy. All questions were answered and informed consent was obtained. A universal timeout was performed prior to starting the procedure. All elements of maximal sterile barriertechnique, hand hygiene, skin preparation and sterile techniques were followed. Preliminary imaging of the left kidney was performed to delineate a safe path to the area of interest. Lidocaine was usedfor cutaneous anesthesia. Under imaging guidance the guide needle was advanced into the left kidney.Multiple (five 18g) core samples were obtained and sent for analysis. Following removal of the needle, post procedure imaging demonstrated no evidence of bleeding. A sterile dressing was placed. The patient tolerated the procedure well and was returned to the holding area/floor in stable condition. IMPRESSION: Successful US-guided non targeted left renal biopsy. Signed: Lisa Ashraf MDRgeraldineort VerifiedDate/Time: 08/18/2022 15:57:09 Reading Location: [place] [id number] Angio Body Reading Room Electronically s igned by: LISA ASHRAF MD on 08/18/2022 03:57 PMANA TITER AND [id number] 14:58:57 Test Item Value Reference Range Interpretation Comments CEZAR TITER (BEAKER) (test code = :640 1541) CEZAR PATTERN (BEAKER) (test code = Homogeneous 1781) ANTI-NUCLEAR ANTIBODY (CEZAR)2022-08-18 14:58:46 Test Item Value Reference Range Interpretation Comments ANTI-NUCLEAR ANTIBODY (CEZAR) (BEAKER) Positive Negative A (test code = 418) Test performed by IFA method.CMV PCR, [id number] 14:53:19 Test Item Value Reference Range Interpretation Comments CMV VIRAL LOAD - Negative or below See_Comment [Auto mated message] NEGATIVE (BEAKER) the linear range The sy stem which (test code = of the assay generated this 2558) (<300 IU/mL) result transmit diamond reference range : <300 - >3,00 0,000 IU/mL. The refe rence range was not u sed to interpret th is result as normal/abnormal . Cytomegalovirus (CMV) infection can cause significant disease in immunosuppressed patients. However,it is common for CMV to manifest as a limited infection which is of no clinical significance in immunosuppressed patients or in healthy individuals.Viral load measurements are helpful to identify clinical CMV infection and to guide the pre-emptive management of antiviral therapy. For treatment of CMV infection due to reactivation in transplant recipients, a threshold between 4,000 and 5,000 copies/mLis suggested. For treatment of primary CMV infection, a lower threshold can be used.CMV infection may also be monitored using weekly serial measurements. Serial measurements of CMV DNA viral load can be evaluated by identifying a 10-fold change, as well as assessing the CMV DNA viral load and the clinical context for each patient.The plasma CMV DNA viral load was detected using quantitative polymerase chain reaction and fluorescent monitoring of a specific hybridized probe. Genetic variation and other factors can affect the accuracy of nucleic acid testing. Therefore, the results should be interpreted in light of clinical data. A negative result may not exclude the presence of CMV disease.This test was developed and its performance characteristics determined by the [facility] Pathol ogy Department, Section of Molecular Pathology. It has not been cleared or approved by the U.S. Foodand Drug Administration (FDA), since FDA approval is not required for clinical use of the test. Validation was done as required by The Clinical Laboratory Improvement Amendments of 1988.PERIPHERAL BLOOD SMEAR - PATHOLOGIST [id number] 14:31:17 Test Item Value Reference Range Interpretation Comments RBC MORPHOLOGY Microcytosis (BEAKER) (test code = 2846) RBC MORPHOLOGY Anisocytosis (BEAKER) (test code = 43973) RBC MORPHOLOGY Poikilocytosis (BEAKER) (test code = 36265) PLT MORPHOLOGY No Clumping (BEAKER) (test code = 2848) PERIPHERAL SMR REVIEW Cell counts confirmed. (BEAKER) (test code = 2640) [id number] Mari Motley M.D. (BEAKER) (test code = (electronic signature) 2849) POCT-GLUCOSE [id number] 08:26:14 Test Item Value Reference Range Interpretation Comments POC-GLUCOSE METER 173 mg/dL 70-110 H : TESTED A T [facility] 6720 (BEAKER) (test code = HENRRY [facility], 1538) [address]: Pharmacists/Techni maris ID = [id number] for MARY REZA CBC W/PLT COUNT & AUTO [id number] 07:49:55 Test Item Value Reference Range Interpretation Comments WHITE BLOOD CELL COUNT 5.1 K/ L 3.5-10.5 (BEAKER) (test code = 775) RED BLOOD CELL COUNT 3.34 M/ L 3.93-5.22 L (BEAKER) (test code = 761) HEMOGLOBIN (BEAKER) 7.4 GM/DL 11.2-15.7 L (test code = 410) HEMATOCRIT (BEAKER) 24.2 % 34.1-44.9 L (test code = 411) MEAN CORPUSCULAR 73 fL 79-95 L VOLUME (BEAKER) (test code = 753) MEAN CORPUSCULAR 22.2 pg 25.6-32.2 L HEMOGLOBIN (BEAKER) (test code = 751) MEAN CORPUSCULAR 30.6 GM/DL 32.2-35.5 L HEMOGLOBIN CONC (BEAKER) (test code = 752) RED CELL DISTRIBUTION 22.3 % 11.7-14.4 H WIDTH (BEAKER) (test code = 412) PLATELET COUNT 168 K/CU MM 150-450 (BEAKER) (test code = 756) MEAN PLATELET VOLUME Unable to report due (BEAKER) (test code = to abn ormal Platelet 754) population distribution. NUCLEATED RED BLOOD 4 /100 WBC 0-0 H CELLS (BEAKER) (test code = 413) (CELLAVISION MANUAL DIFF)2022-08-18 07:49:55 Test Item Value Reference Range Interpretation Comments NEUTROPHILS - REL 89 % (CELLAVISION)(BEAKER) (test code = 2816) LYMPHOCYTES - REL 7 % (CELLAVISION)(BEAKER) (test code = 2817) MONOCYTES - REL 1 % (CELLAVISION)(BEAKER) (test code = 2818) BANDS - REL (CELLAVISION)(BEAKER) 2 % 0-10 (test code = 2826) ATYPICAL LYMPHOCYTES - REL 1 % 0-0 H (CELLAVISION)(BEAKER) (test code = 2829) NEUTROPHILS - ABS 4.54 K/ul 1.56-6.13 (CELLAVISION)(BEAKER) (test code = 2830) LYMPHOCYTES - ABS 0.36 K/ul 1.18-3.74 L (CELLAVISION)(BEAKER) (test code = 2831) MONOCYTES - ABS 0.05 K/uL 0.24-0.36 L (CELLAVISION)(BEAKER) (test code = 2832) BANDS - ABS (CELLAVISION)(BEAKER) 0.10 K/uL 0.00-0.80 (test code = 2840) ATYPICAL LYMPHOCYTES - ABS 0.05 K/uL 0.00-0.00 H (CELLAVISION)(BEAKER) (test code = 2858) TOTAL COUNTED (BEAKER) (test code 100 = 1351) MANUAL NRBC PER 100 CELLS 2 /100 WBC 0-0 H (BEAKER) (test code = 1353) WBC MORPHOLOGY (BEAKER) (test Normal code = 487) GIANT PLATELETS (BEAKER) (test Present code = 313) POLYCHROMATOPHILLIC RBCS(BEAKER) 2+ moderate (test code = 478) HYPOCHROMIA (BEAKER) (test code = 1+ few 963) ANISOCYTOSIS (BEAKER) (test code 2+ moderate = 961) MICROCYTES (BEAKER) (test code = 1+ few 965) MACROCYTES (BEAKER) (test code = 2+ moderate 964) POIKILOCYTES (BEAKER) (test code 3+ many = 966) SCHISTOCYTES (BEAKER) (test code 2+ moderate = 765) OVALOCYTES (BEAKER) (test code = 2+ moderate 477) TEAR DROP CELLS (BEAKER) (test 1+ few code = 481) JIMENEZ-JOLLY BODIES (BEAKER) 1+ few (test code = 475) BASOPHILIC STIPPLING (BEAKER) Present (test code = 473) ARTIFACT (CELLAVISION)(BEAKER) Present (test code = 3432) HELMET CELLS 1+ few (CELLAVISION)(BEAKER) (test code = 3434) PLATELET CONCENTRATION Adequate (CELLAVISION)(BEAKER) (test code = 3438) Pharmacists ID - Huong Tompkins comments: Slide comments:COMPREHENSIVE METABOLIC [id number] 06:52:20 Test Item Value Reference Range Interpretation Comments TOTAL PROTEIN 5.1 gm/dL 6.0-8.3 L (BEAKER) (test code = 770) ALBUMIN (BEAKER) 2.8 g/dL 3.5-5.0 L (test code = 1145) ALKALINE 73 U/L 40-150 PHOSPHATASE (BEAKER) (test code = 346) BILIRUBIN TOTAL 0.3 mg/dL 0.2-1.2 (BEAKER) (test code = 377) SODIUM (BEAKER) 139 meq/L 136-145 (test code = 381) POTASSIUM (BEAKER) 3.9 meq/L 3.5-5.1 (test code = 379) CHLORIDE (BEAKER) 112 meq/L 98-107 H (test code = 382) CO2 (BEAKER) (test 17 meq/L 22-29 L code = 355) BLOOD UREA 43 mg/dL 7-21 H NITROGEN (BEAKER) (test code = 354) CREATININE 5.49 mg/dL 0.57-1.25 H (BEAKER) (test code = 358) GLUCOSE RANDOM 199 mg/dL 70-105 H (BEAKER) (test code = 652) CALCIUM (BEAKER) 7.0 mg/dL 8.4-10.2 L (test code = 697) AST (SGOT) 19 U/L 5-34 (BEAKER) (test code = 353) ALT (SGPT) 15 U/L 6-55 (BEAKER) (test code = 347) EGFR (BEAKER) 10 Interpretatio n of eGFR (test code = [...] not appl icable for dialysis patien ts Pharmacists ID - CINDY [id number] 06:44:02 Test Item Value Reference Range Interpretation Comments PHOSPHORUS (BEAKER) (test code = 3.8 mg/dL 2.3-4.7 604) Pharmacists ID - CINDY [id number] 06:44:01 Test Item Value Reference Range Interpretation Comments MAGNESIUM (BEAKER) (test code = 1.8 mg/dL 1.6-2.6 627) Pharmacists ID - CINDY LPROTHROMBIN TIME/[id number] 05:53:13 Test Item Value Reference Range Interpretation Comments PROTIME (BEAKER) 15.0 seconds 11.9-14.2 H (test code = 759) INR (BEAKER) (test 1.20 See_Comment [Automat ed message] code = 370) The system avocadostore generated this result transmitted ref erence range: <=5.90. The reference range was not used to int erpret this result as normal/abnormal . RECOMMENDED COUMADIN/WARFARIN INR THERAPY RANGESSTANDARD DOSE: 2.0 - 3.0 Includes: PROPHYLAXIS for venous thrombosis, systemic embolization; TREATMENT for venous thrombosis and/or pulmonary embolus.HIGH RISK: Target INR is 2.5-3.5 for patients with mechanical heart valves.CALCIUM, [id number] 05:49:04 Test Item Value Reference Range Interpretation Comments CALCIUM IONIZED (BEAKER) (test 0.98 mmol/L 1.12-1.27 L code = 698) PH, BLOOD (BEAKER) (test code = 7.40 1810) POCT-GLUCOSE [id number] 21:27:59 Test Item Value Reference Range Interpretation Comments POC-GLUCOSE METER 203 mg/dL 70-110 H : [facility] (BEAKER) (test code = [facility]RR[facility] [place], 1538) [address]: Pharmacists/Techni maris ID = [id number] for MARY REZA Clostridium difficile GDH [id number] 12:06:48 Test Item Value Reference Range Interpretation Comments C. Difficle Toxin Negative Negative (test code = 9587121472) C. Difficile GDH Positive Negative A C. difficil e Antigen (test code = present but toxin [id number]) not detected. Indicates colonization wi th non-toxigenic strain or level of toxin below detectable levels. No need for enteric isolation. Treatment is rarely needed (only when stro ng clinical suspicion for Clostridium difficile infection) BRE (test code = Testing performed BRE) by [employer] Rapid Cassette Assay. For GDH, published sensitivity of the assay is 98.7% compared to cytotoxicity testing. For Toxin AB, published sensitivity is 87.8% and specificity 99.4% compared to cytotoxicity testing.Verificati on of kit performance was done by the [facility] Microbiology Lab prior to clinical use. Lab Interpretation Abnormal (test code = 46878-2) [facility] [id number] 12:06:48 Test Item Value Reference Range Interpretation Comments CDT TOXIN (test code Negative Negative = [id number]) CDT GDH ANTIGEN Positive Negative A C. difficile present but (test code = toxin not detec diamond. [id number]) Indicates colon ization with non-toxige geno strain or level of tox in below detectable leve ls. No need for enteri c isolation. Laly tment is rarely needed ( only when strong clinical suspicion for Clostridium difficile infection) Testing performed by [email or web address] Rapid Cassette Assay. For GDH, published sensitivity of the assay is 98.7% compared to cytotoxicity testing. For Toxin AB, published sensitivity is 87.8% and specificity 99.4% compared to cytotoxicity testing.Verification of kit performance was done by the [facility] MicrobiologyLab prior to clinical use.GI Pathogen Profile by PCR -ID [id number] 09:38:08 Test Item Value Reference Range Interpretation Comments CAMPYLOBACTER PCR (test Not detected Not detected code = 32217-2) PLESIOMONAS SHIGELLOIDES Not detected Not detected (PCR) (test code = 53231-5) SALMONELLA (PCR) (test Not detected Not detected code = 88116-1) YERSINIA ENTEROCOLITICA Not detected Not detected (PCR) (test code = 16552-7) VIBRIO CHOLERAE (PCR) Not detected Not detected (test code = 82891-1) ENTEROAGGREGATIVE E. Not detected Not detected COLI (EAEC) BY PCR (test code = 21614-3) ENTEROPATHOGENIC E. COLI Not detected Not detected (EPEC) BY PCR (test code = 49241-3) ENTEROTOXIGENIC E. COLI Not detected Not detected (ETEC) LT/ST BY PCR (test code = 75223-7) SHIGA-LIKE Not detected Not detected TOXIN-PRODUCING E. COLI (STEC) STX1/STX2 (test code = 24665-6) E. COLI O157 (PCR) (test code = 00023-8) SHIGELLA/ENTEROINVASIVE Not detected Not detected E. COLI (EIEC) BY PCR (test code = 18712-6) CRYPTOSPORIDIUM (PCR) Not detected Not detected (test code = 40325-6) CYCLOSPORA CAYETANENSIS Not detected Not detected (PCR) (test code = 79686-0) ENTAMOEBA HISTOLYTICA Not detected Not detected (PCR) (test code = 06178-9) GIARDIA LAMBLIA (PCR) Not detected Not detected (test code = 88401-7) ADENOVIRUS F 40/41 (PCR) Not detected Not detected (test code = 78859-4) ASTROVIRUS (PCR) (test Not detected Not detected code = 04685-5) NOROVIRUS GI/GII (PCR) (test code = 29944-1) ROTAVIRUS A (PCR) (test Not detected Not detected code = 99135-1) SAPOVIRUS (I, II, IV, V) Not detected Not detected BY PCR (test code = 36738-3) VIBRIO Not detected Not detected (PARAHAEMOLYTICUS, VULNIFICUS) (test code = 94837-9) BRE (test code = BRE) Other viruses, parasites and bacteria not targeted by this PCR panel cannot be excluded; therefore clinical correlation and follow up of serology, culture results, and other molecular studies is required. The results are not intended to be used as the sole means for clinical diagnosis or patient management decisions. This sample was tested at the [facility] Molecular Diagnostics Laboratory using the [employer] Gastrointestinal Panel. It is FDA cleared and has been verified and approved by the [facility] Molecular Diagnostics Laboratory for clinical use. This laboratory is CLIA-certified and [employer] (CAP)-accredited to perform high complexity testing. [facility] BY [id number] 09:38:08 Test Item Value Reference Range Interpretation Comments CAMPYLOBACTER (PCR) (test code = Not detected Not detected 20160225) PLESIOMONAS SHIGELLOIDES (PCR) Not detected Not detected (test code = 20160229) SALMONELLA (PCR) (test code = Not detected Not detected ) YERSINIA ENTEROCOLITICA (PCR) Not detected Not detected (test code = 20160323) VIBRIO CHOLERAE (PCR) (test code Not detected Not detected = 20160324) ENTEROAGGREGATIVE E. COLI (EAEC) Not detected Not detected BY PCR (test code = 5303949) ENTEROPATHOGENIC E. COLI (EPEC) Not detected Not detected BY PCR (test code = 6628609) ENTEROTOXIGENIC E. COLI (ETEC) Not detected Not detected LT/ST BY PCR (test code = 1350882) SHIGA-LIKE TOXIN-PRODUCING E. Not detected Not detected COLI (STEC) PCR (test code = 3989391) E. COLI O157 (PCR) (test code = 7146183) SHIGELLA/ENTEROINVASIVE E. COLI Not detected Not detected (EIEC) BY PCR (test code = 1364547) CRYPTOSPORIDIUM (PCR) (test code Not detected Not detected = 20160331) CYCLOSPORA CAYETANENSIS (PCR) Not detected Not detected (test code = ) ENTAMOEBA HISTOLYTICA (PCR) Not detected Not detected (test code = 20160423) GIARDIA LAMBLIA (PCR) (test code Not detected Not detected = 20160424) ADENOVIRUS F 40/41 (PCR) (test Not detected Not detected code = 20160425) ASTROVIRUS (PCR) (test code = Not detected Not detected 20160426) NOROVIRUS GI/GII (PCR) (test code = 1399908) ROTAVIRUS A (PCR) (test code = Not detected Not detected 20160428) SAPOVIRUS (I, II, IV, V) BY PCR Not detected Not detected (test code = 3703831) VIBRIO (PARAHAEMOLYTICUS, Not detected Not detected VULNIFICUS) (test code = 0497132) Other viruses, parasites and bacteria not targeted by this PCR panel cannot be excluded; therefore clinical correlation and follow up of serology, culture results, and other molecular studies is required. The results are not intended to be used as the sole means for clinical diagnosis or patient management decisions. This sample was tested at the [facility] Molecular Diagnostics Laboratory using the [employer] Gastrointestinal Panel. It is FDA cleared and has been verified and approved by the [facility] Molecular Diagnostics Laboratory for clinical use. This laboratory is CLIA-certified and College ofAmerican Pathologists (CAP)-accredited to perform high complexity testing.POCT-GLUCOSE [id number] 07:54:14 Test Item Value Reference Range Interpretation Comments POC-GLUCOSE METER 137 mg/dL 70-110 H : TESTED A T [facility] 6720 (BEAKER) (test code = HENRRY [facility], 1538) [address]: Pharmacists/Techni maris ID = [id number] for Co Melba patrick CBC W/PLT COUNT & AUTO [id number] 07:18:48 Test Item Value Reference Range Interpretation Comments WHITE BLOOD CELL COUNT 4.5 K/ L 3.5-10.5 (BEAKER) (test code = 775) RED BLOOD CELL COUNT 3.40 M/ L 3.93-5.22 L (BEAKER) (test code = 761) HEMOGLOBIN (BEAKER) 7.5 GM/DL 11.2-15.7 L (test code = 410) HEMATOCRIT (BEAKER) 24.7 % 34.1-44.9 L (test code = 411) MEAN CORPUSCULAR 73 fL 79-95 L VOLUME (BEAKER) (test code = 753) MEAN CORPUSCULAR 22.1 pg 25.6-32.2 L HEMOGLOBIN (BEAKER) (test code = 751) MEAN CORPUSCULAR 30.4 GM/DL 32.2-35.5 L HEMOGLOBIN CONC (BEAKER) (test code = 752) RED CELL DISTRIBUTION 22.1 % 11.7-14.4 H WIDTH (BEAKER) (test code = 412) PLATELET COUNT 147 K/CU MM 150-450 L (BEAKER) (test code = 756) MEAN PLATELET VOLUME Unable to report due (BEAKER) (test code = to abn ormal Platelet 754) population distribution. NUCLEATED RED BLOOD 3 /100 WBC 0-0 H CELLS (BEAKER) (test code = 413) NEUTROPHILS RELATIVE 82 % PERCENT (BEAKER) (test code = 429) LYMPHOCYTES RELATIVE 9 % PERCENT (BEAKER) (test code = 430) MONOCYTES RELATIVE 8 % PERCENT (BEAKER) (test code = 431) EOSINOPHILS RELATIVE 0 % PERCENT (BEAKER) (test code = 432) BASOPHILS RELATIVE 0 % PERCENT (BEAKER) (test code = 437) NEUTROPHILS ABSOLUTE 3.67 K/ L 1.56-6.13 COUNT (BEAKER) (test code = 670) LYMPHOCYTES ABSOLUTE 0.41 K/ L 1.18-3.74 L COUNT (BEAKER) (test code = 414) MONOCYTES ABSOLUTE 0.36 K/ L 0.24-0.36 COUNT (BEAKER) (test code = 415) EOSINOPHILS ABSOLUTE 0.00 K/ L 0.04-0.36 L COUNT (BEAKER) (test code = 416) BASOPHILS ABSOLUTE 0.00 K/ L 0.01-0.08 L COUNT (BEAKER) (test code = 417) IMMATURE 1.10 % 0.00-1.00 H GRANULOCYTES-RELATIVE PERCENT (BEAKER) (test code = 2803) COMPREHENSIVE METABOLIC [id number] 07:05:54 Test Item Value Reference Range Interpretation Comments TOTAL PROTEIN 5.1 gm/dL 6.0-8.3 L (BEAKER) (test code = 770) ALBUMIN (BEAKER) 2.7 g/dL 3.5-5.0 L (test code = 1145) ALKALINE 54 U/L 40-150 PHOSPHATASE (BEAKER) (test code = 346) BILIRUBIN TOTAL 0.2 mg/dL 0.2-1.2 (BEAKER) (test code = 377) SODIUM (BEAKER) 141 meq/L 136-145 (test code = 381) POTASSIUM (BEAKER) 4.2 meq/L 3.5-5.1 (test code = 379) CHLORIDE (BEAKER) 115 meq/L 98-107 H (test code = 382) CO2 (BEAKER) (test 17 meq/L 22-29 L code = 355) BLOOD UREA 38 mg/dL 7-21 H NITROGEN (BEAKER) (test code = 354) CREATININE 5.39 mg/dL 0.57-1.25 H (BEAKER) (test code = 358) GLUCOSE RANDOM 134 mg/dL 70-105 H (BEAKER) (test code = 652) CALCIUM (BEAKER) 7.3 mg/dL 8.4-10.2 L (test code = 697) AST (SGOT) 14 U/L 5-34 (BEAKER) (test code = 353) ALT (SGPT) 9 U/L 6-55 (BEAKER) (test code = 347) EGFR (BEAKER) 10 Interpretatio n of eGFR (test code = [...] glom erular filtration rate . Estimated GFR i s not applicable for dialysis patients Pharmacists ID - ELENA WLACTATE DEHYDROGENASE (LDH)2022-08-17 07:03:40 Test Item Value Reference Range Interpretation Comments LACTATE DEHYDROGENASE (BEAKER) (test 219 U/L 125-220 code = 635) Pharmacists ID - ELENA [id number] 07:03:39 Test Item Value Reference Range Interpretation Comments MAGNESIUM (BEAKER) (test code = 1.8 mg/dL 1.6-2.6 627) Pharmacists ID - ELENA [id number] 07:03:39 Test Item Value Reference Range Interpretation Comments PHOSPHORUS (BEAKER) (test code = 3.6 mg/dL 2.3-4.7 604) Pharmacists ID - ELENA WRETICULOCYTE [id number] 06:47:55 Test Item Value Reference Range Interpretation Comments RETICULOCYTE COUNT PCT (BEAKER) (test 1.4 % 0.5-1.7 code = 575) Pharmacists ID - [id number], [id number] 06:45:28 Test Item Value Reference Range Interpretation Comments CALCIUM IONIZED (BEAKER) (test 1.03 mmol/L 1.12-1.27 L code = 698) PH, BLOOD (BEAKER) (test code = 7.35 1810) POCT-GLUCOSE [id number] 23:48:11 Test Item Value Reference Range Interpretation Comments POC-GLUCOSE METER 180 mg/dL 70-110 H : TESTED A T [facility] 6720 (BEAKER) (test code = HENRRY [facility], 1538) [address]: Pharmacists/Techni maris ID = [id number] for ANDREW BOWIE [id number] 15:42:49 Test Item Value Reference Range Interpretation Comments HAPTOGLOBIN (BEAKER) (test code = 97 mg/dL 14-258 366) Pharmacists ID - MITCHLACTATE DEHYDROGENASE (LDH)2022-08-16 15:41:33 Test Item Value Reference Range Interpretation Comments LACTATE DEHYDROGENASE (BEAKER) (test 475 U/L 125-220 H code = 635) Pharmacists ID - WILDABILIRUBIN, ADULT [id number] 15:39:30 Test Item Value Reference Range Interpretation Comments BILIRUBIN TOTAL (BEAKER) (test code 0.3 mg/dL 0.2-1.2 = 377) Pharmacists ID - WILDAU/S, RENAL, [id number] 08:27:00Reason for exam:- >akiShould this be performed at the bedside?->Yes [facility] 1990 Sex: FFINAL REPORT Ultrasound of the Kidneys Clinical History: paulo Discussion: Sonographic evaluation of the kidneys is performed. Right kidney: 9.3 x 4.3 x 5.2 cm, with cortical thickness of 1.3 cm. Normal cortical echogenicity. No mass. No shadowing calculus. No hydronephrosis. Left kidney: 9.5 x 5.7 x 5.5 cm, with cortical thickness of 1.5 cm. Normal cortical echogenicity. No mass. No s hadowing calculus. No hydronephrosis. Bladder: Unremarkable. Impression: No hydronephrosis. Signed: Maninder Goodman Verified Date/Time: 08/16/2022 08:27:28 Reading Location: [address] Consult Reading Room CREATINE KINASE (CK)2022-08-16 07:48:40 Test Item Value Reference Range Interpretation Comments CREATINE KINASE TOTAL (BEAKER) (test < U/L 29-200 L code = 380) Pharmacists ID - CINDY LCOMPREHENSIVE METABOLIC [id number] 07:48:34 Test Item Value Reference Range Interpretation Comments TOTAL PROTEIN 5.3 gm/dL 6.0-8.3 L (BEAKER) (test code = 770) ALBUMIN (BEAKER) 2.9 g/dL 3.5-5.0 L (test code = 1145) ALKALINE 50 U/L 40-150 PHOSPHATASE (BEAKER) (test code = 346) BILIRUBIN TOTAL 0.3 mg/dL 0.2-1.2 (BEAKER) (test code = 377) SODIUM (BEAKER) 140 meq/L 136-145 (test code = 381) POTASSIUM (BEAKER) 4.1 meq/L 3.5-5.1 (test code = 379) CHLORIDE (BEAKER) 114 meq/L 98-107 H (test code = 382) CO2 (BEAKER) (test 16 meq/L 22-29 L code = 355) BLOOD UREA 29 mg/dL 7-21 H NITROGEN (BEAKER) (test code = 354) CREATININE 4.77 mg/dL 0.57-1.25 H (BEAKER) (test code = 358) GLUCOSE RANDOM 136 mg/dL 70-105 H (BEAKER) (test code = 652) CALCIUM (BEAKER) 7.5 mg/dL 8.4-10.2 L (test code = 697) AST (SGOT) 12 U/L 5-34 (BEAKER) (test code = 353) ALT (SGPT) 9 U/L 6-55 (BEAKER) (test code = 347) EGFR (BEAKER) 12 Interpretatio n of eGFR (test code = [...] not appl icable for dialysis patien ts Pharmacists ID - PIAYA [id number] 07:43:32 Test Item Value Reference Range Interpretation Comments PHOSPHORUS (BEAKER) (test code = 4.2 mg/dL 2.3-4.7 604) Pharmacists ID Levar WHITE [id number] 07:43:31 Test Item Value Reference Range Interpretation Comments MAGNESIUM (BEAKER) (test code = 1.7 mg/dL 1.6-2.6 627) Pharmacists ID Levar WHITE LCBC W/PLT COUNT & AUTO [id number] 07:18:26 Test Item Value Reference Range Interpretation Comments WHITE BLOOD CELL COUNT 3.3 K/ L 3.5-10.5 L (BEAKER) (test code = 775) RED BLOOD CELL COUNT 3.48 M/ L 3.93-5.22 L (BEAKER) (test code = 761) HEMOGLOBIN (BEAKER) 7.6 GM/DL 11.2-15.7 L (test code = 410) HEMATOCRIT (BEAKER) 25.0 % 34.1-44.9 L (test code = 411) MEAN CORPUSCULAR 72 fL 79-95 L VOLUME (BEAKER) (test code = 753) MEAN CORPUSCULAR 21.8 pg 25.6-32.2 L HEMOGLOBIN (BEAKER) (test code = 751) MEAN CORPUSCULAR 30.4 GM/DL 32.2-35.5 L HEMOGLOBIN CONC (BEAKER) (test code = 752) RED CELL DISTRIBUTION 21.9 % 11.7-14.4 H WIDTH (BEAKER) (test code = 412) PLATELET COUNT 114 K/CU MM 150-450 L (BEAKER) (test code = 756) MEAN PLATELET VOLUME Unable to report due (BEAKER) (test code = to abn ormal Platelet 754) population distribution. NUCLEATED RED BLOOD 0 /100 WBC 0-0 CELLS (BEAKER) (test code = 413) NEUTROPHILS RELATIVE 79 % PERCENT (BEAKER) (test code = 429) LYMPHOCYTES RELATIVE 16 % PERCENT (BEAKER) (test code = 430) MONOCYTES RELATIVE 4 % PERCENT (BEAKER) (test code = 431) EOSINOPHILS RELATIVE 0 % PERCENT (BEAKER) (test code = 432) BASOPHILS RELATIVE 0 % PERCENT (BEAKER) (test code = 437) NEUTROPHILS ABSOLUTE 2.61 K/ L 1.56-6.13 COUNT (BEAKER) (test code = 670) LYMPHOCYTES ABSOLUTE 0.52 K/ L 1.18-3.74 L COUNT (BEAKER) (test code = 414) MONOCYTES ABSOLUTE 0.13 K/ L 0.24-0.36 L COUNT (BEAKER) (test code = 415) EOSINOPHILS ABSOLUTE 0.00 K/ L 0.04-0.36 L COUNT (BEAKER) (test code = 416) BASOPHILS ABSOLUTE 0.00 K/ L 0.01-0.08 L COUNT (BEAKER) (test code = 417) IMMATURE 1.20 % 0.00-1.00 H GRANULOCYTES-RELATIVE PERCENT (BEAKER) (test code = 2801) [id number] 23:16:43 Test Item Value Reference Range Interpretation Comments FERRITIN (BEAKER) (test code = 2792.44 ng/mL 5.00-275.00 H 361) Pharmacists ID - CINDY LOperator ID - CINDY LVITAMIN [id number] 22:16:48 Test Item Value Reference Range Interpretation Comments VITAMIN B12 (BEAKER) (test code = 1715 pg/mL 213-816 H 774) Pharmacists ID - CINDY LHIV-1 ANTIGEN WITH HIV-1/2 [id number] 22:07:43 Test Item Value Reference Range Interpretation Comments HIV-1 ANTIGEN WITH HIV 1\\T\\2 Nonreactive Nonreactive ANTIBODY (2) (BEAKER) (test code = 2586) Pharmacists LIAM JARAMILLO DCREATINE KINASE (CK)2022-08-15 21:51:01 Test Item Value Reference Range Interpretation Comments CREATINE KINASE TOTAL (BEAKER) (test 7 U/L 29-200 L code = 380) Pharmacists ID - CINDY LCOMPREHENSIVE METABOLIC [id number] 21:50:55 Test Item Value Reference Range Interpretation Comments TOTAL PROTEIN 5.1 gm/dL 6.0-8.3 L (BEAKER) (test code = 770) ALBUMIN (BEAKER) 2.9 g/dL 3.5-5.0 L (test code = 1145) ALKALINE 56 U/L 40-150 PHOSPHATASE (BEAKER) (test code = 346) BILIRUBIN TOTAL 0.3 mg/dL 0.2-1.2 (BEAKER) (test code = 377) SODIUM (BEAKER) 139 meq/L 136-145 (test code = 381) POTASSIUM (BEAKER) 4.1 meq/L 3.5-5.1 (test code = 379) CHLORIDE (BEAKER) 113 meq/L 98-107 H (test code = 382) CO2 (BEAKER) (test 16 meq/L 22-29 L code = 355) BLOOD UREA 25 mg/dL 7-21 H NITROGEN (BEAKER) (test code = 354) CREATININE 4.62 mg/dL 0.57-1.25 H (BEAKER) (test code = 358) GLUCOSE RANDOM 147 mg/dL 70-105 H (BEAKER) (test code = 652) CALCIUM (BEAKER) 7.6 mg/dL 8.4-10.2 L (test code = 697) AST (SGOT) 15 U/L 5-34 (BEAKER) (test code = 353) ALT (SGPT) 9 U/L 6-55 (BEAKER) (test code = 347) EGFR (BEAKER) 12 Interpretatio n of eGFR (test code = [...] not appl icable for dialysis patien ts Pharmacists ID - CINDY [id number] 21:48:41 Test Item Value Reference Range Interpretation Comments MAGNESIUM (BEAKER) (test code = 1.7 mg/dL 1.6-2.6 627) Pharmacists ID - CINDY LLACTATE DEHYDROGENASE (LDH)2022-08-15 21:48:41 Test Item Value Reference Range Interpretation Comments LACTATE DEHYDROGENASE (BEAKER) (test 221 U/L 125-220 H code = 635) Pharmacists ID - ROSASHASHANK [id number] 21:47:31 Test Item Value Reference Range Interpretation Comments HAPTOGLOBIN (BEAKER) (test code = 80 mg/dL 14-258 366) Pharmacists ID - ELLA STONE, TIBC, % SAT. (WITHOUT FERRITIN)2022-08-15 21:47:31 Test Item Value Reference Range Interpretation Comments IRON (BEAKER) (test code = 547) 88.0 ug/dL 40.0-160.0 TOTAL IRON BINDING CAPACITY 85 ug/dL 250-450 L (BEAKER) (test code = 769) IRON % SATURATION (2) (BEAKER) 104 % 20-55 H (test code = 2590) Pharmacists ID - ELLA DCOMPLEMENT COMPONENT [id number] 21:47:30 Test Item Value Reference Range Interpretation Comments C4 COMPLEMENT (BEAKER) (test code = 5 mg/dL 15-57 L 394) Pharmacists ID - ELLA DCOMPLEMENT COMPONENT [id number] 21:47:30 Test Item Value Reference Range Interpretation Comments C3 COMPLEMENT (BEAKER) (test code = 30 mg/dL 82-193 L 393) Pharmacists ID - ELLA DCBC W/PLT COUNT & AUTO [id number] 21:37:39 Test Item Value Reference Range Interpretation Comments WHITE BLOOD CELL COUNT 3.2 K/ L 3.5-10.5 L (BEAKER) (test code = 775) RED BLOOD CELL COUNT 3.48 M/ L 3.93-5.22 L (BEAKER) (test code = 761) HEMOGLOBIN (BEAKER) 7.8 GM/DL 11.2-15.7 L (test code = 410) HEMATOCRIT (BEAKER) 24.9 % 34.1-44.9 L (test code = 411) MEAN CORPUSCULAR 72 fL 79-95 L VOLUME (BEAKER) (test code = 753) MEAN CORPUSCULAR 22.4 pg 25.6-32.2 L HEMOGLOBIN (BEAKER) (test code = 751) MEAN CORPUSCULAR 31.3 GM/DL 32.2-35.5 L HEMOGLOBIN CONC (BEAKER) (test code = 752) RED CELL DISTRIBUTION 21.9 % 11.7-14.4 H WIDTH (BEAKER) (test code = 412) PLATELET COUNT 115 K/CU MM 150-450 L (BEAKER) (test code = 756) MEAN PLATELET VOLUME Unable to report due (BEAKER) (test code = to abn ormal Platelet 754) population distribution. NUCLEATED RED BLOOD 1 /100 WBC 0-0 H CELLS (BEAKER) (test code = 413) NEUTROPHILS RELATIVE 85 % PERCENT (BEAKER) (test code = 429) LYMPHOCYTES RELATIVE 11 % PERCENT (BEAKER) (test code = 430) MONOCYTES RELATIVE 3 % PERCENT (BEAKER) (test code = 431) EOSINOPHILS RELATIVE 0 % PERCENT (BEAKER) (test code = 432) BASOPHILS RELATIVE 0 % PERCENT (BEAKER) (test code = 437) NEUTROPHILS ABSOLUTE 2.75 K/ L 1.56-6.13 COUNT (BEAKER) (test code = 670) LYMPHOCYTES ABSOLUTE 0.35 K/ L 1.18-3.74 L COUNT (BEAKER) (test code = 414) MONOCYTES ABSOLUTE 0.10 K/ L 0.24-0.36 L COUNT (BEAKER) (test code = 415) EOSINOPHILS ABSOLUTE 0.00 K/ L 0.04-0.36 L COUNT (BEAKER) (test code = 416) BASOPHILS ABSOLUTE 0.00 K/ L 0.01-0.08 L COUNT (BEAKER) (test code = 417) IMMATURE 0.60 % 0.00-1.00 GRANULOCYTES-RELATIVE PERCENT (BEAKER) (test code = 2801) PROTHROMBIN TIME/[id number] 21:32:22 Test Item Value Reference Range Interpretation Comments PROTIME (BEAKER) 13.9 seconds 11.9-14.2 (test code = 759) INR (BEAKER) (test 1.14 See_Comment [Automat ed message] code = 370) The system avocadostore generated this result transmitted ref erence range: <=5.90. The reference range was not used to int erpret this result as normal/abnormal . RECOMMENDED COUMADIN/WARFARIN INR THERAPY RANGESSTANDARD DOSE: 2.0 - 3.0 Includes: PROPHYLAXIS for venous thrombosis, systemic embolization; TREATMENT for venous thrombosis and/or pulmonary embolus.HIGH RISK: Target INR is 2.5-3.5 for patients with mechanical heart valves.RETICULOCYTE [id number] 21:26:56 Test Item Value Reference Range Interpretation Comments RETICULOCYTE COUNT PCT (BEAKER) (test 0.7 % 0.5-1.7 code = 575) Pharmacists ID - [id number], random [id number] 18:40:09 Test Item Value Reference Range Interpretation Comments Protein, Urine (test code 279 mg/dL 0-14 H = 2888-6) BRE (test code = BRE) Pharmacists LIAM Weathers Lab Interpretation (test Abnormal code = 40154-1) [facility] [id number] 18:40:09 Test Item Value Reference Range Interpretation Comments PROTEIN, URINE (BEAKER) (test code 279 mg/dL 0-14 H = 1569) Pharmacists LIAM Galindoeatinine, random [id number] 18:10:08 Test Item Value Reference Range Interpretation Comments Creatinine, Ur 198.4 mg/dL (test code = 2161-8) BRE (test code = Reference Range: No BRE) NormalsOperator ID Levar Weathers [facility]odium, random [id number] 18:10:08 Test Item Value Reference Range Interpretation Comments Sodium Urine (test 31 meq/L code = 2955-3) BRE (test code = Reference Range: No BRE) NormalsOperator LIAM Weathers [facility] HospitalCREAT[facility]INE, RANDOM [id number] 18:10:08 Test Item Value Reference Range Interpretation Comments CREATININE URINE (BEAKER) (test 198.4 mg/dL code = 375) Reference Range: No NormalsOperator LIAM JARAMILLO DSODIUM, RANDOM URINE 2022-08-15 18:10:08 Test Item Value Reference Range Interpretation Comments SODIUM URINE (BEAKER) (test code = 31 meq/L 243) Reference Range: No NormalsOperator LIAM JARAMILLO DUrinalysis w/Microscopic 2022-08-15 17:58:31 Test Item Value Reference Range Interpretation Comments Color, UA (test code Yellow = 5778-6) Clarity, UA (test Hazy code = 5767-9) Specific [place], UA 1.015 1.001-1.035 (test code = 5811-5) pH, UA (test code = 6.0 5.0-8.0 5803-2) Protein, UA (test 300 mg/dL Negative A code = 14559-2) Glucose, UA (test Negative Negative code = 365) Ketones, UA (test Trace Negative A code = 2514-8) Bilirubin, UA (test Negative Negative code = 26558-2) Blood, UA (test code Small Negative A = 41710-5) Nitrite, UA (test Negative Negative code = 5802-4) Leukocytes, UA (test Small Negative A code = 5799-2) Urobilinogen, UA 0.2 0.2-1.0 (test code = 32878-9) RBC, UA (test code = 6 See_Comment [Autom ated 07220-8) message] The system which generated this result transmit diamond reference range : /HPF. The reference range was not used to interpret this result as normal/abnormal . WBC, UA (test code = 6 See_Comment [Autom ated 5821-4) message] The system which generated this result transmit diamond reference range : /HPF. The reference range was not used to interpret this result as normal/abnormal . Bacteria, UA (test Few code = 17281-7) Squam Epithel, UA 10 See_Comment [Automate d (test code = 07657-4) messag e] The system which generated this result transmit diamond reference range : /HPF. The reference range was not used to interpret this result as normal/abnormal . Specimen Source (test Urine, Clean code = 2795) Catch BRE (test code = BRE) Pharmacists ID - [auto] Lab Interpretation Abnormal (test code = 64177-5) [facility]UR[facility]IS W/ [id number] 17:58:31 Test Item Value Reference Range Interpretation Comments COLOR (BEAKER) (test code Yellow = 470) CLARITY (BEAKER) (test Hazy code = 469) SPECIFIC GRAVITY UA 1.015 1.001-1.035 (BEAKER) (test code = 468) PH UA (BEAKER) (test code 6.0 5.0-8.0 = 467) PROTEIN UA (BEAKER) (test 300 mg/dL Negative A code = 464) GLUCOSE UA (BEAKER) (test Negative Negative code = 365) KETONES UA (BEAKER) (test Trace Negative A code = 371) BILIRUBIN UA (BEAKER) Negative Negative (test code = 462) BLOOD UA (BEAKER) (test Small Negative A code = 461) NITRITE UA (BEAKER) (test Negative Negative code = 465) LEUKOCYTE ESTERASE UA Small Negative A (BEAKER) (test code = 466) UROBILINOGEN UA (BEAKER) 0.2 0.2-1.0 (test code = 463) RBC UA (BEAKER) (test code 6 /HPF = 519) WBC UA (BEAKER) (test code 6 /HPF = 520) BACTERIA (BEAKER) (test Few code = 517) SQUAMOUS EPITHELIAL 10 /HPF (BEAKER) (test code = 516) SOURCE(BEAKER) (test code Urine, Clean Catch = 2795) Pharmacists ID - [auto]POCT [id number] 01:01:00 Test Item Value Reference Range Interpretation Comments On board controls acceptable with present C Line (test code = 3574) POCT PREG LOT # (test code = 3575) [id number] POCT PREG TEST DATE (test 2023-10-21 code = 3576) POCT PREG (test code = 1605) negative Lab Interpretation (test code = Normal 87911-2) [facility]. METABOLIC PANEL (16100)2022-06-08 21:40:57 Test Item Value Reference Range Interpretation Comments NA (test code = 138 mmol/L 135-145 5807849787) K (test code = 5.1 mmol/L 3.5-5 H 1400587840) CL (test code = 117 mmol/L 98-108 H 5737910262) CO2 TOTAL (test code = 12 mmol/L 23-31 L 5669158568) AGAP (test code = 2-16 8285016230) BUN (test code = 32 mg/dL 7-23 H 1684923896) GLUCOSE (test code = 70 mg/dL 70-110 8191507677) CREATININE (test code = 2.80 mg/dL 0.5-1.04 H 3588743340) TOTAL BILI (test code = 0.5 mg/dL 0.1-1.0 6249496735) CALCIUM (test code = 12.8 mg/dL 8.6-10.6 H 1557439284) T PROTEIN (test code = 6.6 g/dL 6.3-8.2 7074749941) ALBUMIN (test code = 3.7 g/dL 3.5-5 4068390970) ALK PHOS (test code = 57 U/L 34-122 2563205759) ALTv (test code = 28 U/L 5-35 1742-6) AST(SGOT) (test code = 53 U/L 13-40 H 4873162956) eGFR (test code = mL/min/1.73m2 4978560032) BRE (test code = BRE) Association of [...] tests). Lab Interpretation Abnormal (test code = 28363-3) [facility] 21:40[facility]31 Test Item Value Reference Range Interpretation Comments LIPASE (test code = 7393072114) 278 U/L 0-220 H Lab Interpretation (test code = Abnormal 30127-5) [facility] CONT*WW*2022-05-07 13:58:35[facility] : 1990 Sex: FMRI thoracic spine without contrastLocation code: S7Jtmfgpym history: Pain with difficulty walkingTechnique: Multiplanar multisequence [...] subluxations.No evidence of dominant disc herniations or stenos is.The signal throughout the cord is maintained without syrinx or myelomalacia.No paraspinal soft tissue mass or hematoma.Minimal spondylotic changes of the lower thoracic spine.Impression: 1. Minimal spondylotic changes of the lower thoracic spine without dominant disc herniations or stenosis. No evidence of cord lesion or syrinx.Electronically signed by: Dorian Barraza MD 05/07/2022 1:58 PM CDT SPINE LUMBAR W/O CONTRAST*WW* 2022-05-07 13:49:50 [facility] : 1990 Sex: FMRI Lumbar Spine without contrastLocation code: [id number]: Unable to walkCOMPARISON: None.Technique: Multiplanar multisequence MR [...] Dorian Barraza MD 05/07/2022 1:49 PM CDT [id number] METABOLIC [id number] 05:35:00 Test Item Value Reference Range Interpretation [...] not appl icable for dialysis patien ts Pharmacists ID - CINDY [id number] 05:32:01 Test Item Value Reference Range Interpretation Comments PHOSPHORUS (BEAKER) (test code = 3.0 mg/dL 2.3-4.7 604) Pharmacists ID - CINDY [id number] 05:32:00 Test Item Value Reference Range Interpretation Comments MAGNESIUM (BEAKER) (test code = 1.7 mg/dL 1.6-2.6 627) Pharmacists ID - CINDY LCBC W/PLT COUNT & AUTO [id number] 11:56:12 Test Item Value Reference Range Interpretation [...] code = 2801) RAD, ABDOMEN/KUB, 1 VIEW [id number] 10:34:00Reason for exam:->to evaluate for obstructionMODEST[facility] : 1990 Sex: FFINAL [...] loops, which may represent ileus. Signed: Sofia Guidry MDReport Verified Date/Time: 04/08/2022 10:34:43 Reading Location: [facility] Radiology Reading Room BASIC METABOLIC [id number] 06:01:36 Test Item Value Reference Range Interpretation [...] high >=90 G2 Mildly decreased 60-89 G3a Mild ly to moderately 45-5 9 G3b Moderately to [...] not appl icable for dialysis patien ts Pharmacists ID - LAMINE MCBC W/PLT COUNT & AUTO [id number] 15:32:22 Test Item Value Reference Range Interpretation [...] SARS-Co V-2 (test code = target nucleic 03831-3) acids are not detected in thi s [...] rapid, real-montana e RT-PCR test intended for e qualitative detection of nucleic acid fr [...] revoked sooner. Fact Sheet for Healthcare Providers: https://www.[facility]/Documents/Xp ert%20Xpress%20SAR S%20CoV-2/Fact%20S heets/302-3802%20S ARS-COV-2%20HEALTH CARE%20PROVIDERS%2 0FACT%20SHEET.pdf Fact Sheet for Healthcare Patients: https://www.[facility]/Documents/Xp ert%20Xpress%20SAR S%20CoV-2/Fact%20S heets/302-3801%20S ARS-COV-2%20PATIEN T%20FACT%20SHEET.p df Lab Interpretation Normal (test code = 67546-0) [facility] ([facility])2022-04-07 14:36:23 Test Item Value Reference Range Interpretation Comments SARS-COV2/RT-PCR Negative Negative The SARS-Co V-2 target (test code = nucleic acids a re not 4505267) detected in thi s specimen. Negative result [...] individuals suspected of CO VID-19 by their [facility] provider. This test has been authorized [...] revoked sooner. Fact Sheet for Healthcare Providers: https://www.[employer]/Documents/Xpert%20Xpress%20SARS%20CoV-2/Fact%20Sheets/3023802%22QZPT-ZHZ-0%20 HEALTHCARE%20PROVIDERS%20FACT%20SHEET.pdf Fact Sheet for Healthcare Patients: https://www.[employer]/Documents/Xpert%20Xp ress%20SARS%20CoV-2/Fact%20Sheets/3023801%57FUZM-XBF-1%20PATIENT%20FACT%20SHEET .pdfBLOOD [id number] 06:00:37 Test Item Value Reference Range Interpretation [...] No NormalsOperator ID - PIAYA LBASIC METABOLIC [id number] 07:02:47 Test Item Value Reference Range Interpretation [...] eGF R is based on the CKD-EPI 1 equation that d oes not use a race coefficientEsti mated GFR is not as accur ate as Creatinine Aniyah keron in predicting glom erular filtration rate . Estimated GFR is not appl icable for dialysis patien ts Pharmacists ID - CINDY [id number] 07:01:34 Test Item Value Reference Range Interpretation Comments PHOSPHORUS (BEAKER) (test code = 2.7 mg/dL 2.3-4.7 604) Pharmacists ID - PISHASHANK [id number] 07:01:33 Test Item Value Reference Range Interpretation Comments MAGNESIUM (BEAKER) (test code = 1.5 mg/dL 1.6-2.6 L 627) Pharmacists ID - CINDY LVANCOMYCIN LEVEL, [id number] 05:58:26 Test Item Value Reference Range Interpretation Comments VANCOMYCIN RANDOM (BEAKER) (test 22.5 ug/mL code = 523) Reference Range: No NormalsOperator ID - CINDY LCBC W/PLT COUNT & AUTO [id number] 05:05:30 Test Item Value Reference Range Interpretation [...] PERCENT (BEAKER) (test code = 2801) CT, [id number] 13:50:00Unlisted Reason for Exam - Click Yes and Enter Reason Below->YesUnlisted Reason for Exam->stoma evaluationIs this for enterography?->NoWill this procedure require oral contrast?->Yes [facility] 1990 Sex: FFINAL [...] adrenal lesions. URINARY SYSTEM: Kidneys are grossly symmetric.No hydronephrosis or hydroureter. Bladder is unremarkable. REPRODUCTIVE SYSTEM: An IUD is noted. GASTROINTESTINAL SYSTEM: Stomach is unremarkable. Small bowel is normal in caliber. Postsurgical changesstatus post partial colectomy with left lower quadrant colostomy. VASCULAR: Abdominal aorta is of normal course and caliber. No significant calcified atherosclerotic disease. LYMPHATICS: No pathologic lymphadenopathy. PERITONEUM: Trace interloop fluid is noted in the left lower quadrant of the abdomen. A 4.1 x 2.2 x 3.8 cm pocket of fluid is noted in the left upper quadrant (axial image 32). SOFT TISS UES/ BONES: Anasarca. Trace fluid is noted in the midline surgical wound. No significant degenerative changes of the visualized spine. No aggressive osseous lesions. IMPRESSION:1.Postsurgical changes status post partial colectomy with left lower quadrant colostomy.2.A small fluid collection is identified in the left upper quadrant of the abdomen.3.Cholelithiasis.4.Trace ascites and anasarca.5.Incidental note of trace bilateral pleural effusions. Signed: Dai Montanez MDReport Verified Date/Time: 04/05/2022 13:50:23 Reading Location: [address] Ortho Consult Reading Room BLOOD [id number] 10:35:02 Test Item Value Reference Range Interpretation [...] No NormalsOperator ID - PIAYA LBASIC METABOLIC [id number] 07:02:40 Test Item Value Reference Range Interpretation [...] not appl icable for dialysis patien ts Pharmacists ID - PIAYA LPregnancy Screen, [id number] 05:11:38 Test Item Value Reference Range Interpretation Comments Preg Test, Ur (test code = 2112-1) Negative Negative Lab Interpretation (test code = Normal 14170-0) [facility] [id number] 05:11:38 Test Item Value Reference Range Interpretation Comments TEST URINE (BEAKER) (test Negative Negative code = 583) CALCIUM, [id number] 05:06:05 Test Item Value Reference Range Interpretation Comments CALCIUM IONIZED (BEAKER) (test 1.17 mmol/L 1.12-1.27 code = 698) PH, BLOOD (BEAKER) (test code = 7.42 1810) COMPREHENSIVE METABOLIC [id number] 06:05:55 Test Item Value Reference Range Interpretation [...] not appl icable for dialysis patien ts Pharmacists ID - LAMINE [id number] 06:05:55 Test Item Value Reference Range Interpretation Comments MAGNESIUM (BEAKER) (test code = 1.6 mg/dL 1.6-2.6 627) Pharmacists ID - LAMINE [id number] 06:05:55 Test Item Value Reference Range Interpretation Comments PHOSPHORUS (BEAKER) (test code = 1.8 mg/dL 2.3-4.7 L 604) Pharmacists ID - LAMINE MCBC W/PLT COUNT & AUTO [id number] 05:23:04 Test Item Value Reference Range Interpretation [...] PERCENT (BEAKER) (test code = 2801) CALCIUM, [id number] 05:10:24 Test Item Value Reference Range Interpretation Comments CALCIUM IONIZED (BEAKER) (test 1.10 mmol/L 1.12-1.27 L code = 698) PH, BLOOD (BEAKER) (test code = 7.46 1810) [id number] 06:30:28 Test Item Value Reference Range Interpretation Comments FERRITIN (BEAKER) (test code = 1990.14 ng/mL 5.00-275.00 H 361) Pharmacists ID - LAMINE MCOMPREHENSIVE METABOLIC [id number] 06:16:05 Test Item Value Reference Range Interpretation [...] hemolyzed code = 347) EGFR (BEAKER) 23 Interpretati on of eGFR (test code = 1092) mL/min/1.[address] age Description sq m Result G1 Kamla l or high >=90 G2 Mildly decreased 60-89 G3a Mildl y to moderately 45- 59 G3b Moderately to s everely 30-44 G4 Severl y decreased 15-29 G5 Kidney failure <15Reported eGF R is based on the CKD-EPI 2020 equation that d oes not use a race coefficientEsti mated GFR is not as accur ate as Creatinine Aniyah cabrales in predicting glom erular filtration rate . Estimated GFR is not appl icable for dialysis patien ts Pharmacists ID - CINDY [id number] 06:07:05 Test Item Value Reference Range Interpretation Comments MAGNESIUM (BEAKER) 1.7 mg/dL 1.6-2.6 Specimen slightly (test code = 627) hemolyzed Pharmacists ID - CINDY KEAHIELNMGJ9695-27-05 06:07:05 Test Item Value Reference Range Interpretation Comments PHOSPHORUS (BEAKER) 2.7 mg/dL 2.3-4.7 Specimen slightly (test code = 604) hemolyzed Pharmacists ID - CINDY NIKHIL, TIBC, % SAT. (WITHOUT FERRITIN)2022-04-03 06:02:22 Test Item Value Reference Range Interpretation Comments IRON (BEAKER) (test code = 547) 50.0 ug/dL 40.0-160.0 TOTAL IRON BINDING CAPACITY 123 ug/dL 250-450 L (BEAKER) (test code = 769) IRON % SATURATION (2) (BEAKER) 41 % 20-55 (test code = 2590) Pharmacists ID - LAMINE MCBC W/PLT COUNT & AUTO [id number] 05:44:03 Test Item Value Reference Range Interpretation [...] PERCENT (BEAKER) (test code = 2801) RETICULOCYTE [id number] 05:41:57 Test Item Value Reference Range Interpretation Comments RETICULOCYTE COUNT PCT (BEAKER) (test 1.6 % 0.5-1.7 code = 575) Pharmacists ID - 6000CALCIUM, [id number] 05:28:28 Test Item Value Reference Range Interpretation Comments CALCIUM IONIZED (BEAKER) (test 1.15 mmol/L 1.12-1.27 code = 698) PH, BLOOD (BEAKER) (test code = 7.38 1810) SARS-COV2/RT-PCR ([facility])2022-04-03 03:18:56 Test Item Value Reference Range Interpretation Comments SARS-COV2/RT-PCR Negative Negative The SARS-Co V-2 target (test code = nucleic acids a re not 9005778) detected in thi s specimen. Negative result [...] sooner. Fact Sheet for Healthcare Providers: https://www.cepheid.co m/Documents/Xpert%20Xpress%20SARS%20CoV-2/Fact%20Sheets/302-9104%17BVMY-AWS-6%20 HEALTHCARE%20PROVIDERS%20FACT%20SHEET.pdf Fact Sheet for Healthcare Patients: https://www.Insignia Technologiesid.com/Documents/Xpert%20Xp ress%20SARS%20CoV-2/Fact%20Sheets/3023801%74YPBA-ZFQ-1%20PATIENT%20FACT%20SHEET .pdfBLOOD CULTURE IDENTIFICATION [id number] 02:40:30 Test Item Value Reference Interpretation Comments Range LISTERIA MONOCYTOGENES Not detected Not detected (test code = 8790841) STAPHYLOCOCCUS (test Detected Not detected A Coagula se negative code = 4237424) Staph specie s (CoNS)- methici llin resistantFirst- line therapy: Vancom ycin MecA DETECTED Possible contamination. The likelihood of pathogenicity i s increased if th e organism is observed in multiple blood cultures obtain ed from separate venipunctures. Reference Range : Not Detected STAPHYLOCOCCUS AUREUS Not detected Not detected (test code = 7054045) STREPTOCOCCUS (test code Not detected Not detected = 1457771) STREPTOCOCCUS AGALACTIAE Not detected Not detected (GROUP B) (test code = 3801204) STREPTOCOCCUS PNEUMONIAE Not detected Not detected (test code = 6019160) STREPTOCOCCUS PYOGENES Not detected Not detected (GROUP A) (test code = 5617760) ACINETOBACTER BAUMANNII Not detected Not detected (test code = 2327729) HAEMOPHILUS INFLUENZAE Not detected Not detected (test code = 4403361) NEISSERIA MENINGITIDIS Not detected Not detected (test code = 0337127) ENTEROBACTERIACEAE (test Not detected Not detected code = 7295711) ENTEROBACTER CLOACOE Not detected Not detected COMPLEX (test code = 3091099) KLEBSIELLA OXYTOCA (test Not detected Not detected code = 3484121) KLEBSIELLA PNEUMONIAE Not detected Not detected (test code = 1650) PROTEUS (test code = Not detected Not detected 8864015) SERRATIA MARCESCENS Not detected Not detected (test code = 8515230) JEWELS ALBICANS (test Not detected Not detected code = 6089177) JEWELS GLABRATA (test Not detected Not detected code = 2592054) JEWELS KRUSEI (test Not detected Not detected code = 4210445) JEWELS PARAPSILOSIS Not detected Not detected (test code = 2485460) JEWELS TROPICALIS (test Not detected Not detected code = 0527627) ESCHERICHIA COLI (test Not detected Not detected code = 9324049) METHICILLIN-RESISTANCE Detected Not detected A Note: Antimicrobial GENE (test code = resistance can 2177066) occur via multi ple mechanisms. A N ot Detected result for the Film[employer] antimicrobial resistance gene assays does not indicate antimicrobial susceptibility. Subculturing is required for species identification and susceptibility testing of isolates. VANCOMYCIN-RESISTANCE GENE (test code = 0843760) CARBAPENEM-RESISTANCE GENE (test code = 9277833) ENTEROCOCCUS-BEAKER Not detected Not detected (test code = 6683264) PSEUDOMONAS Not detected Not detected AERUGINOSA-BEAKER (test code = 0893860) Other bacteria and resistance markers not targeted by this PCR panel cannot be excluded; therefore clinical correlation and follow up of serology, culture results, and other molecular studies is required. The results are not intended to be used as the sole means for clinical diagnosis or patient management decisions. This sample was tested at the [facility] using the [employer] Blood Culture ID Panel. It is FDA cleared and has been verified and approved by the [facility] for clinical use. This laboratory is CLIA-certified and College ofAmerican Pathologists (CAP)-accredited to perform high complexity testing.CBC W/PLT COUNT & AUTO [id number] 04:57:54 Test Item Value Reference Range Interpretation [...] (BEAKER) (test code = 2801) BASIC METABOLIC [id number] 22:48:25 Test Item Value Reference Range Interpretation [...] not appl icable for dialysis patien ts Pharmacists ID - BSCBC (HEMOGRAM ONLY)2022-04-01 22:37:25 Test [...] (test code = 413) Hepatitis B surface [id number] 14:48:11 Test Item Value Reference Range Interpretation Comments Hep B S Ab (test code <8.0 See_Comment [Auto mated = 49349-9) message] The system which generated this result transmit diamond reference range : <8.0 mIU/mL. Th e reference range was not used to interpret this result as normal/abnormal . BRE (test code = BRE) Pharmacists ID - DB Lab Interpretation Normal (test code = 79625-7) [facility] krpiygqz1364-28-00 14:48:11 Test Item Value Reference Range Interpretation Comments Hep B S Ab (test code <8.0 See_Comment [Auto mated = 52554-0) message] The system which generated this result transmit diamond reference range : <8.0 mIU/mL. e reference range was not used to interpret this result as normal/abnormal . BRE (test code = BRE) Pharmacists ID - DB Lab Interpretation Normal (test code = 37985-0) [facility] [id number] 14:48:11 Test Item Value Reference Range Interpretation Comments HEPATITIS B SURFACE ANTIBODY < mIU/mL <8.0 (BEAKER) (test code = 647) Pharmacists ID - DBHepatitis B surface sszapph6231-27-93 14:23:40 Test Item Value Reference Range Interpretation Comments Hepatitis B surface Nonreactive Nonreactive antigen (test code = 5195-3) BRE (test code = BRE) Specimen is considered negative for HBsAg. Lab Interpretation (test Normal code = 57852-3) [facility] antibody, [id number] 14:23:40 Test Item Value Reference Range Interpretation Comments Hep B Core Total Ab (test Nonreactive Nonreactive code = 22405-1) BRE (test code = BRE) Pharmacists ID - DB Lab Interpretation (test Normal code = 39445-7) [facility]TIBODY, [id number] 14:23:40 Test Item Value Reference Range Interpretation Comments HEPATITIS B CORE TOTAL ANTIBODY Nonreactive Nonreactive (BEAKER) (test code = 497) Pharmacists ID - DBHEPATITIS B SURFACE [id number] 14:23:40 Test Item Value Reference Range Interpretation Comments HEPATITIS B SURFACE ANTIGEN (2) Nonreactive Nonreactive (BEAKER) (test code = 2585) Specimen is considered negative for HBsAg.CHEM [id number] 13:33:00 Test Item Value Reference Range Interpretation Comments Glucose Lvl (test code = Glucose Lvl) 111 70-99 [facility] [id number] 13:33:00 Test Item Value Reference Range Interpretation Comments BUN (test code = BUN) 94 7-22 [facility]2021-08-20 13:33:00 Test Item Value Reference Range Interpretation Comments Creatinine Lvl (test code = Creatinine 3.80 0.50-1.40 Lvl) [facility]2021-08-20 13:33:00 Test Item Value Reference Range Interpretation Comments Sodium Lvl (test code = Sodium Lvl) 139 135-145 [place] 402711-08-20 13:33:00 Test Item Value Reference Range Interpretation Comments Potassium Lvl (test code = Potassium 3.7 3.5-5.1 Lvl) [facility]2021-08-20 13:33:00 Test Item Value Reference Range Interpretation Comments Chloride Lvl (test code = Chloride Lvl) 108 95-109 [facility]2021-08-20 13:33:00 Test Item Value Reference Range Interpretation Comments CO2 (test code = CO2) 21 24-32 [place] 402711-08-20 13:33:00 Test Item Value Reference Range Interpretation Comments Calcium Lvl (test code = Calcium Lvl) 8.7 8.5-10.5 [facility]2021-08-20 13:33:00 Test Item Value Reference Range Interpretation Comments AGAP (test code = AGAP) 13.7 10.0-20.0 [facility]2021-08-20 13:33:00 Test Item Value Reference Range Interpretation Comments eGFR (test code = eGFR) 15 [facility]2021-08-19 10:33:00 Test Item Value Reference Range Interpretation Comments Magnesium Lvl (test code = Magnesium 2.7 1.8-2.4 Lvl) [facility]2021-08-19 10:33:00 Test Item Value Reference Range Interpretation Comments Phosphorus (test code = Phosphorus) 5.8 2.5-4.5 [facility]2021-08-19 10:33:00 Test Item Value Reference Range Interpretation Comments Glucose Lvl (test code = Glucose Lvl) 186 70-99 [facility]2021-08-19 10:33:00 Test Item Value Reference Range Interpretation Comments BUN (test code = BUN) 88 7-22 [place] 402711-08-19 10:33:00 Test Item Value Reference Range Interpretation Comments Creatinine Lvl (test code = Creatinine 4.70 0.50-1.40 Lvl) [facility]2021-08-19 10:33:00 Test Item Value Reference Range Interpretation Comments Sodium Lvl (test code = Sodium Lvl) 138 135-145 [place] 402711-08-19 10:33:00 Test Item Value Reference Range Interpretation Comments Potassium Lvl (test code = Potassium 3.6 3.5-5.1 Lvl) [place] 402711-08-19 10:33:00 Test Item Value Reference Range Interpretation Comments Chloride Lvl (test code = Chloride Lvl) 106 95-109 [place] 402711-08-19 10:33:00 Test Item Value Reference Range Interpretation Comments CO2 (test code = CO2) 21 -32 [place] 402711-08-19 10:33:00 Test Item Value Reference Range Interpretation Comments AGAP (test code = AGAP) 14.6 10.0-20.0 [place] 402711-08-19 10:33:00 Test Item Value Reference Range Interpretation Comments Calcium Lvl (test code = Calcium Lvl) 8.7 8.5-10.5 [place] 402711-08-19 10:33:00 Test Item Value Reference Range Interpretation Comments eGFR (test code = eGFR) 12 [facility]aleCfsfcjrMIOSAYXGHO9354-18-79 10:33:00 Test Item Value Reference Range Interpretation Comments Plt Morph (test code = Normal (04/10/21 5:33 Plt Morph) AM) [place] 245491-08-19 10:33:00 Test Item Value Reference Range Interpretation Comments Segs (test code = Segs) 88.8 45.0-75.0 [place] 245491-08-19 10:33:00 Test Item Value Reference Range Interpretation Comments Lymphocytes (test code = Lymphocytes) 6.3 20.0-40.0 [place] 245491-08-19 10:33:00 Test Item Value Reference Range Interpretation Comments Monocytes (test code = Monocytes) 4.6 2.0-12.0 [place] 245491-08-19 10:33:00 Test Item Value Reference Range Interpretation Comments Eosinophils (test code = 0.1 See_Comment [A utomated message] The Eosinophils) system which ge nerated this result tra nsmitted reference range : <=4.0. The reference r germania was not used to int erpret this result as normal/abnormal . [facility]aleMqbaugePXXMAXBKQQ3782-92-71 10:33:00 Test Item Value Reference Range Interpretation Comments Basophils (test code = 0.2 See_Comment [Aut omated message] The Basophils) system which ge nerated this result tra nsmitted reference range : <=1.0. The reference r germania was not used to int erpret this result as normal/abnormal . [facility]valeZuhmrkeZENGBWFZQT5684-85-91 10:33:00 Test Item Value Reference Range Interpretation Comments Neutrophils # (test code = Neutrophils 12.5 1.5-8.1 #) [facility]aleTcqmxvyHAUUXWCWXE4188-42-71 10:33:00 Test Item Value Reference Range Interpretation Comments Lymphocytes # (test code = Lymphocytes 0.9 1.0-5.5 #) [facility]aleYkhnqkzEIAGZILVAK1345-61-65 10:33:00 Test Item Value Reference Range Interpretation Comments Monocytes # (test code 0.6 See_Comment [Aut omated message] The = Monocytes #) system which generated this result tra nsmitted reference range : <=0.8. The reference r germania was not used to int erpret this result as normal/abnormal . [facility]valeLtwmqedKGLZJKJOMR4137-13-46 10:33:00 Test Item Value Reference Range Interpretation Comments Microcyte (test code = 3+ *NA*(04/10/21 5:33 Microcyte) AM) [facility]aleHfkypdfPRGUOOLMVR9609-28-10 10:33:00 Test Item Value Reference Range Interpretation Comments Polychrom (test code = Moderate *ABN*(04/10/21 Polychrom) 5:33 AM) [facility]aleLvbjyaeMQAFPJVIBI2507-52-91 10:33:00 Test Item Value Reference Range Interpretation Comments Tear Cell (test code Moderate *ABN*(04/10/21 = Tear Cell) 5:33 AM) [facility]alePhlvyajUMZBMEETJO2457-90-22 10:33:00 Test Item Value Reference Range Interpretation Comments Schistocyte (test code = 1-3 per HPF Schistocyte) (04/10/21 5:33 AM) [facility]aleUrgxwfmFJYUSNIEGC1032-85-23 10:33:00 Test Item Value Reference Range Interpretation Comments WBC X 10x3 (test code = WBC X 10x3) 14.0 3.7-10.4 [facility]valeNlqdxwcEZIOLDVAAF6957-40-76 10:33:00 Test Item Value Reference Range Interpretation Comments RBC X 10x6 (test code = RBC X 10x6) 3.63 4.20-5.40 [facility]valeMoxciyjIIQEOQRJBE4507-03-55 10:33:00 Test Item Value Reference Range Interpretation Comments Hgb (test code = Hgb) 7.7 12.0-16.0 [facility]aleMbiijbfOOWMGOBCZI6354-16-81 10:33:00 Test Item Value Reference Range Interpretation Comments Hct (test code = Hct) 23.8 36.0-48.0 [facility]aleMdkpvxfPKTLZQPSTD1856-26-61 10:33:00 Test Item Value Reference Range Interpretation Comments MCV (test code = MCV) 65.6 80.0-98.0 [facility]aleEpnqonbMDKJUVQFAO0273-24-86 10:33:00 Test Item Value Reference Range Interpretation Comments MCH (test code = MCH) 21.3 pg 27.0-31.0 [facility]aleHzppmwvLAATFHBXXU6264-10-68 10:33:00 Test Item Value Reference Range Interpretation Comments MCHC (test code = MCHC) 32.5 32.0-36.0 [facility]aleAuajusjRLVFNIKFMU6004-80-09 10:33:00 Test Item Value Reference Range Interpretation Comments RDW (test code = RDW) 18.6 11.5-14.5 [facility]aleWlmrqusGBKJCNDFGJ2095-57-55 10:33:00 Test Item Value Reference Range Interpretation Comments Platelet (test code = Platelet) 165 133-450 [facility]valeWnylgxyNZZVBYKMFR2953-41-61 10:33:00 Test Item Value Reference Range Interpretation Comments MPV (test code = MPV) 9.0 7.4-10.4 [facility] DGYED8659-76-08 10:49:00 Test Item Value Reference Range Interpretation Comments Phosphorus (test code = Phosphorus) 7.2 2.5-4.5 [facility] [id number] 10:49:00 Test Item Value Reference Range Interpretation Comments Glucose Lvl (test code = Glucose Lvl) 68 70-99 [facility]2021-08-18 10:49:00 Test Item Value Reference Range Interpretation Comments BUN (test code = BUN) 82 7-22 [facility]2021-08-18 10:49:00 Test Item Value Reference Range Interpretation Comments Creatinine Lvl (test code = Creatinine 5.00 0.50-1.40 Lvl) [facility]2021-08-18 10:49:00 Test Item Value Reference Range Interpretation Comments Sodium Lvl (test code = Sodium Lvl) 138 135-145 [place] 402711-08-18 10:49:00 Test Item Value Reference Range Interpretation Comments Potassium Lvl (test code = Potassium 3.1 3.5-5.1 Lvl) [facility]2021-08-18 10:49:00 Test Item Value Reference Range Interpretation Comments Chloride Lvl (test code = Chloride Lvl) 105 95-109 [facility]2021-08-18 10:49:00 Test Item Value Reference Range Interpretation Comments CO2 (test code = CO2) 20 24-32 [facility]2021-08-18 10:49:00 Test Item Value Reference Range Interpretation Comments Calcium Lvl (test code = Calcium Lvl) 8.2 8.5-10.5 [facility]2021-08-18 10:49:00 Test Item Value Reference Range Interpretation Comments AGAP (test code = AGAP) 16.1 10.0-20.0 [facility]2021-08-18 10:49:00 Test Item Value Reference Range Interpretation Comments eGFR (test code = eGFR) 11 [facility]2021-08-18 10:49:00 Test Item Value Reference Range Interpretation Comments Magnesium Lvl (test code = Magnesium 2.4 1.8-2.4 Lvl) [facility]aleKygphadCCCZOENATD5320-05-53 10:49:00 Test Item Value Reference Range Interpretation Comments WBC X 10x3 (test code = WBC X 10x3) 10.7 3.7-10.4 [place] 245491-08-18 10:49:00 Test Item Value Reference Range Interpretation Comments RBC X 10x6 (test code = RBC X 10x6) 3.65 4.20-5.40 [place] 245491-08-18 10:49:00 Test Item Value Reference Range Interpretation Comments Hgb (test code = Hgb) 7.8 12.0-16.0 [place] 245491-08-18 10:49:00 Test Item Value Reference Range Interpretation Comments Hct (test code = Hct) 24.8 36.0-48.0 [place] 245491-08-18 10:49:00 Test Item Value Reference Range Interpretation Comments MCV (test code = MCV) 68.0 80.0-98.0 [place] 245491-08-18 10:49:00 Test Item Value Reference Range Interpretation Comments MCH (test code = MCH) 21.4 pg 27.0-31.0 [place] 245491-08-18 10:49:00 Test Item Value Reference Range Interpretation Comments MCHC (test code = MCHC) 31.5 32.0-36.0 [place] 245491-08-18 10:49:00 Test Item Value Reference Range Interpretation Comments RDW (test code = RDW) 18.6 11.5-14.5 [place] 245491-08-18 10:49:00 Test Item Value Reference Range Interpretation Comments Platelet (test code = Platelet) 122 133-450 [facility] SunnyvaleDmysayxIURZSFSPZL4709-08-10 10:49:00 Test Item Value Reference Range Interpretation Comments MPV (test code = MPV) 8.4 7.4-10.4 [place] 245491-08-18 10:49:00 Test Item Value Reference Range Interpretation Comments Segs (test code = Segs) 73.7 45.0-75.0 [place] 245491-08-18 10:49:00 Test Item Value Reference Range Interpretation Comments Lymphocytes (test code = Lymphocytes) 16.3 20.0-40.0 [place] 245491-08-18 10:49:00 Test Item Value Reference Range Interpretation Comments Monocytes (test code = Monocytes) 6.7 2.0-12.0 [place] 245491-08-18 10:49:00 Test Item Value Reference Range Interpretation Comments Eosinophils (test code = 3.0 See_Comment [A utomated message] The Eosinophils) system which ge nerated this result tra nsmitted reference range : <=4.0. The reference r germania was not used to int erpret this result as normal/abnormal . [facility]aleJzptiwlZJTRKBKZFL6425-35-82 10:49:00 Test Item Value Reference Range Interpretation Comments Basophils (test code = 0.3 See_Comment [Aut omated message] The Basophils) system which ge nerated this result tra nsmitted reference range : <=1.0. The reference r germania was not used to int erpret this result as normal/abnormal . [facility]valeKasmpoeHXQLEPKWDQ2079-47-18 10:49:00 Test Item Value Reference Range Interpretation Comments Neutrophils # (test code = Neutrophils 7.9 1.5-8.1 #) [facility]valeCuoygytGKBDEELJBQ7456-46-18 10:49:00 Test Item Value Reference Range Interpretation Comments Lymphocytes # (test code = Lymphocytes 1.7 1.0-5.5 #) [facility]valeLajhqnmMUAUEVQZLQ4978-49-94 10:49:00 Test Item Value Reference Range Interpretation Comments Monocytes # (test code 0.7 See_Comment [Aut omated message] The = Monocytes #) system which generated this result tra nsmitted reference range : <=0.8. The reference r germania was not used to int erpret this result as normal/abnormal . [facility]valeHhrguruLLKXRZKJZB2322-21-43 10:49:00 Test Item Value Reference Range Interpretation Comments Eosinophils # (test code 0.3 See_Comment [A utomated message] The = Eosinophils #) system whic h generated this result tra nsmitted reference range : <=0.5. The reference r germania was not used to int erpret this result as normal/abnormal . [facility]aleMwcrhqgIGYSYXSJZD9777-09-87 10:49:00 Test Item Value Reference Range Interpretation Comments Microcyte (test code = 3+ *NA*(04/09/21 5:49 Microcyte) AM) [place] 245491-08-18 10:49:00 Test Item Value Reference Range Interpretation Comments Hypochrom (test code = 1+ (04/09/21 5:49 AM) Hypochrom) [facility]2021-08-17 11:01:00 Test Item Value Reference Range Interpretation Comments Phosphorus (test code = Phosphorus) 7.2 2.5-4.5 [place] 402711-08-17 11:01:00 Test Item Value Reference Range Interpretation Comments Magnesium Lvl (test code = Magnesium 2.5 1.8-2.4 Lvl) [place] 402711-08-17 11:01:00 Test Item Value Reference Range Interpretation Comments Total Protein (test code = Total 5.4 6.4-8.4 Protein) [place] 402711-08-17 11:01:00 Test Item Value Reference Range Interpretation Comments Albumin Lvl (test code = Albumin Lvl) 1.8 3.5-5.0 [place] 402711-08-17 11:01:00 Test Item Value Reference Range Interpretation Comments ALT (test code = ALT) 15 See_Comment [Auto mated message] The system which ge nerated this result transmit diamond reference range : <=65. The reference range was not used to interpr et this result as kamla l/abnormal. [place] 402711-08-17 11:01:00 Test Item Value Reference Range Interpretation Comments AST (test code = AST) 15 See_Comment [Auto mated message] The system which ge nerated this result transmit diamond reference range : <=37. The reference range was not used to interpr et this result as kamla l/abnormal. [place] 402711-08-17 11:01:00 Test Item Value Reference Range Interpretation Comments Alk Phos (test code = Alk Phos) 75 39-136 [facility]2021-08-17 11:01:00 Test Item Value Reference Range Interpretation Comments Bili Total (test code = Bili Total) 0.3 0.2-1.3 [place] 402711-08-17 11:01:00 Test Item Value Reference Range Interpretation Comments B/C Ratio (test code = B/C Ratio) 13 1 6-25 [place] 402711-08-17 11:01:00 Test Item Value Reference Range Interpretation Comments Globulin (test code = Globulin) 3.6 2.7-4.2 [facility] CampusLeanApps [id number] 11:01:00 Test Item Value Reference Range Interpretation Comments A/G Ratio (test code = A/G Ratio) 0.5 1 0.7-1.6 [place] 245491-08-17 11:01:00 Test Item Value Reference Range Interpretation Comments Plt Morph (test code = Normal (04/08/21 6:01 Plt Morph) AM) [place] 245491-08-17 11:01:00 Test Item Value Reference Range Interpretation Comments Segs (test code = Segs) 69.2 45.0-75.0 [place] 245491-08-17 11:01:00 Test Item Value Reference Range Interpretation Comments Lymphocytes (test code = Lymphocytes) 20.3 20.0-40.0 [place] 245491-08-17 11:01:00 Test Item Value Reference Range Interpretation Comments Monocytes (test code = Monocytes) 7.9 2.0-12.0 [place] 245491-08-17 11:01:00 Test Item Value Reference Range Interpretation Comments Eosinophils (test code = 2.2 See_Comment [A utomated message] The Eosinophils) system which ge nerated this result tra nsmitted reference range : <=4.0. The reference r germania was not used to int erpret this result as normal/abnormal . [place] 245491-08-17 11:01:00 Test Item Value Reference Range Interpretation Comments Basophils (test code = 0.4 See_Comment [Aut omated message] The Basophils) system which ge nerated this result tra nsmitted reference range : <=1.0. The reference r germania was not used to int erpret this result as normal/abnormal . [facility]aleFzjkxgqCZXYKHNHTT4673-78-95 11:01:00 Test Item Value Reference Range Interpretation Comments Neutrophils # (test code = Neutrophils 5.8 1.5-8.1 #) [place] 245491-08-17 11:01:00 Test Item Value Reference Range Interpretation Comments Lymphocytes # (test code = Lymphocytes 1.7 1.0-5.5 #) [place] 245491-08-17 11:01:00 Test Item Value Reference Range Interpretation Comments Monocytes # (test code 0.7 See_Comment [Aut omated message] The = Monocytes #) system which generated this result tra nsmitted reference range : <=0.8. The reference r germania was not used to int erpret this result as normal/abnormal . [place] 245491-08-17 11:01:00 Test Item Value Reference Range Interpretation Comments Eosinophils # (test code 0.2 See_Comment [A utomated message] The = Eosinophils #) system [facility] h generated this result tra nsmitted reference range : <=0.5. The reference r germania was not used to int erpret this result as normal/abnormal . [facility]aleKsgekkiJUISNDNXVE9879-46-48 11:01:00 Test Item Value Reference Range Interpretation Comments Microcyte (test code = 3+ *NA*(04/08/21 6:01 Microcyte) AM) [place] 245491-08-17 11:01:00 Test Item Value Reference Range Interpretation Comments Hypochrom (test code = 1+ (04/08/21 6:01 AM) Hypochrom) [place] 245491-08-17 11:01:00 Test Item Value Reference Range Interpretation Comments Polychrom (test code = Moderate *ABN*(04/08/21 Polychrom) 6:01 AM) [place] 245491-08-17 11:01:00 Test Item Value Reference Range Interpretation Comments Schistocyte (test code = 1-3 per HPF Schistocyte) (04/08/21 6:01 AM) [place] 245491-08-17 11:01:00 Test Item Value Reference Range Interpretation Comments Elliptocyte (test code = Slight *ABN*(04/08/21 Elliptocyte) 6:01 AM) [facility]aleVknzibyXLBVACLJDN0167-00-38 11:01:00 Test Item Value Reference Range Interpretation Comments Toxic Gran (test code Moderate *ABN*(04/08/21 = Toxic Gran) 6:01 AM) [place] 245491-08-17 11:01:00 Test Item Value Reference Range Interpretation Comments WBC X 10x3 (test code = WBC X 10x3) 8.3 3.7-10.4 [facility]valeUbchydwGORMPXUVYR1879-81-25 11:01:00 Test Item Value Reference Range Interpretation Comments RBC X 10x6 (test code = RBC X 10x6) 3.94 4.20-5.40 [place] 245491-08-17 11:01:00 Test Item Value Reference Range Interpretation Comments Hgb (test code = Hgb) 8.6 12.0-16.0 [place] [address]-08-17 11:01:00 Test Item Value Reference Range Interpretation Comments Hct (test code = Hct) 26.9 36.0-48.0 [place] 245491-08-17 11:01:00 Test Item Value Reference Range Interpretation Comments MCV (test code = MCV) 68.4 80.0-98.0 [facility]aleNcxuqlvWUVAJNXRLK1687-85-05 11:01:00 Test Item Value Reference Range Interpretation Comments MCH (test code = MCH) 21.8 pg 27.0-31.0 [facility]aleGeusztzGHBGBMXFUP5941-03-51 11:01:00 Test Item Value Reference Range Interpretation Comments MCHC (test code = MCHC) 31.9 32.0-36.0 [facility]aleCxgwsonSVLMOLLBVB5197-24-77 11:01:00 Test Item Value Reference Range Interpretation Comments RDW (test code = RDW) 18.7 11.5-14.5 [facility]valeFaynhorQGAWFVIEPF4406-67-92 11:01:00 Test Item Value Reference Range Interpretation Comments Platelet (test code = Platelet) 110 133-450 [facility]valeXrpzkngJAMRAHSLWC8791-87-84 11:01:00 Test Item Value Reference Range Interpretation Comments MPV (test code = MPV) 8.4 7.4-10.4 [facility] CampusTohbkneOANMZLRYRN8809-16-42 15:23:00 Test Item Value Reference Range Interpretation Comments C3 Complement (test code = C3 57 Complement) [facility] CenterTuaaiiiJMTHQRTPMK4180-67-77 15:23:00 Test Item Value Reference Range Interpretation Comments C4 Complement (test code = C4 12 Complement) [facility]2021-08-16 09:46:00 Test Item Value Reference Range Interpretation Comments B/C Ratio (test code = B/C Ratio) 12 1 6-25 [facility] CampusLeanApps [id number] 09:46:00 Test Item Value Reference Range Interpretation Comments Total Protein (test code = Total 5.3 6.4-8.4 Protein) [facility] CampusLeanApps [id number] 09:46:00 Test Item Value Reference Range Interpretation Comments Albumin Lvl (test code = Albumin Lvl) 1.6 3.5-5.0 [facility] CampusLeanApps [id number] 09:46:00 Test Item Value Reference Range Interpretation Comments Globulin (test code = Globulin) 3.7 2.7-4.2 [facility] CampusLeanApps [id number] 09:46:00 Test Item Value Reference Range Interpretation Comments A/G Ratio (test code = A/G Ratio) 0.4 1 0.7-1.6 [facility] CampusCHEM [id number] 09:46:00 Test Item Value Reference Range Interpretation Comments ALT (test code = ALT) 13 See_Comment [Auto mated message] The system which ge nerated this result transmit diamond reference range : <=65. The reference range was not used to interpr et this result as kamla l/abnormal. [facility] [id number] 09:46:00 Test Item Value Reference Range Interpretation Comments AST (test code = AST) 8 See_Comment [Auto mated message] The system which ge nerated this result transmit diamond reference range : <=37. The reference range was not used to interpr et this result as kamla l/abnormal. [facility] [id number] 09:46:00 Test Item Value Reference Range Interpretation Comments Alk Phos (test code = Alk Phos) 77 39-136 [facility] [id number] 09:46:00 Test Item Value Reference Range Interpretation Comments Bili Total (test code = Bili Total) 0.3 0.2-1.3 [facility]aleKfrkwceJMUYHZONCS2432-98-69 09:46:00 Test Item Value Reference Range Interpretation Comments Eosinophils # (test code 0.1 See_Comment [A utomated message] The = Eosinophils #) system whic h generated this result tra nsmitted reference range : <=0.5. The reference r germania was not used to int erpret this result as normal/abnormal . [facility]valeEfhamscHTYRNVXAVH1086-72-83 09:46:00 Test Item Value Reference Range Interpretation Comments Basophils # (test code 0.1 See_Comment [Aut omated message] The = Basophils #) system which generated this result tra nsmitted reference range : <=0.2. The reference r germania was not used to int erpret this result as normal/abnormal . [facility] CampusNrqchloSKAIFXFZRC2647-28-24 09:46:00 Test Item Value Reference Range Interpretation Comments C3 Complement (test code = C3 57 Complement) [facility] CampusDdklbozAIALZICPXA2410-31-61 09:46:00 Test Item Value Reference Range Interpretation Comments C4 Complement (test code = C4 12 Complement) [facility] CampusPARATHYROID [id number] 14:25:00 Test Item Value Reference Range Interpretation Comments Ca Ion WB (test code = Ca Ion WB) 0.91 1.05-1.25 [facility] CampusPARATHYROID [id number] 14:25:00 Test Item Value Reference Range Interpretation Comments Ca Norm WB (test code = Ca Norm WB) 0.88 1.05-1.25 [facility] CampusUccacnuHVLPCZIAJY5826-93-40 09:01:00 Test Item Value Reference Range Interpretation Comments Plt Morph (test code = Normal (04/06/21 4:01 Plt Morph) AM) [facility] HospitalZvcinvlFWQURIBMXB5312-83-84 09:01:00 Test Item Value Reference Range Interpretation Comments Polychrom (test code = Moderate *ABN*(04/06/21 Polychrom) 4:01 AM) [facility]aleGurtpqsCUGTGRMZBP6373-24-65 09:01:00 Test Item Value Reference Range Interpretation Comments Schistocyte (test code = 1-3 per HPF Schistocyte) (04/06/21 4:01 AM) [facility]aleWmrnjnpWDLUERBEFZ7698-62-55 09:01:00 Test Item Value Reference Range Interpretation Comments Elliptocyte (test code = Slight *ABN*(04/06/21 Elliptocyte) 4:01 AM) [facility]aleGaacpyuQIMIDHUDXR2183-77-99 09:01:00 Test Item Value Reference Range Interpretation Comments Toxic Gran (test code Moderate *ABN*(04/06/21 = Toxic Gran) 4:01 AM) [facility] SunnyvaleBdrugxmBOHSCKDVGB3179-63-22 09:01:00 Test Item Value Reference Range Interpretation Comments Dohle Bodies (test Moderate *ABN*(04/06/21 code = Dohle Bodies) 4:01 AM) [facility] [id number] 09:01:00 Test Item Value Reference Range Interpretation Comments U Creatinine (test code = U 153.00 Creatinine) [facility] [id number] 09:01:00 Test Item Value Reference Range Interpretation Comments U Protein (test code = U Protein) 293.8 [facility] [id number] 09:01:00 Test Item Value Reference Range Interpretation Comments U Prot/Creat (test code = U 1.92 1 Prot/Creat) [facility]aleGwrelzjOJWSCVWRGW3850-99-21 10:31:00 Test Item Value Reference Range Interpretation Comments Basophils # (test code 0.1 See_Comment [Aut omated message] The = Basophils #) system which generated this result tra nsmitted reference range : <=0.2. The reference r germania was not used to int erpret this result as normal/abnormal . [facility] CampusUijomtoRDKYJXHPNG3940-84-35 10:31:00 Test Item Value Reference Range Interpretation Comments Elliptocyte (test code = Slight *ABN*(04/05/21 Elliptocyte) 5:31 AM) [facility] HospitalLlgyqtiMVIYATKJUH3866-80-06 10:31:00 Test Item Value Reference Range Interpretation Comments Toxic Gran (test code Moderate *ABN*(04/05/21 = Toxic Gran) 5:31 AM) [facility] CampusGram Stain Woawmo6542-53-80 10:31:00 Test Item Value Reference Range Interpretation Comments Gram Stain Report Less Than 25 Squamous (test code = Gram Epithelial Cells/Lpf Stain Report) Moderate WBC's No Organisms Seen Good Quality Specimen [facility] CampusCulture: Respiratory w/Gram [id number] 10:31:00 Test Item Value Reference Range Interpretation Comments Culture: Respiratory Normal Respiratory w/Gram Stain (test code Stacy Isolated = Culture: Respiratory w/Gram Stain) [facility] [id number] 09:03:00 Test Item Value Reference Range Interpretation Comments Total Protein (test code = Total 5.5 6.4-8.4 Protein) [facility] [id number] 09:03:00 Test Item Value Reference Range Interpretation Comments Albumin Lvl (test code = Albumin Lvl) 1.8 3.5-5.0 [facility] [id number] 09:03:00 Test Item Value Reference Range Interpretation Comments ALT (test code = ALT) 14 See_Comment [Auto mated message] The system which ge nerated this result transmit diamond reference range : <=65. The reference range was not used to interpr et this result as kamla l/abnormal. [facility] ClearDATA [id number] 09:03:00 Test Item Value Reference Range Interpretation Comments AST (test code = AST) 11 See_Comment [Auto mated message] The system which ge nerated this result transmit diamond reference range : <=37. The reference range was not used to interpr et this result as kamla l/abnormal. [facility] [employer] [id number] 09:03:00 Test Item Value Reference Range Interpretation Comments Alk Phos (test code = Alk Phos) 105 39-136 [facility] [employer] [id number] 09:03:00 Test Item Value Reference Range Interpretation Comments Bili Total (test code = Bili Total) 0.2 0.2-1.3 [facility] [id number] 09:03:00 Test Item Value Reference Range Interpretation Comments B/C Ratio (test code = B/C Ratio) 9 1 6-25 [facility] [id number] 09:03:00 Test Item Value Reference Range Interpretation Comments Globulin (test code = Globulin) 3.7 2.7-4.2 [facility] [employer] [id number] 09:03:00 Test Item Value Reference Range Interpretation Comments A/G Ratio (test code = A/G Ratio) 0.5 1 0.7-1.6 [place] [id number] 06:50:00 Test Item Value Reference Range Interpretation Comments S Preg (test code = S Negative *NA*(04/05/21 Preg) 1:50 AM) [facility] HospitalYwdqflkBPETDDDPNI8040-85-38 00:21:00 Test Item Value Reference Range Interpretation Comments Vancomycin AUC (test code = Vancomycin 37.2 AUC) [facility] HospitalLaymdswNQDCORUAVQ0931-14-42 21:07:00 Test Item Value Reference Range Interpretation Comments Hep Bs Ag (test code Negative *NA*(04/04/21 = Hep Bs Ag) 4:07 PM) [facility] HospitalSxfevmkFYJLVQNSXR6914-59-77 21:07:00 Test Item Value Reference Range Interpretation Comments Vancomycin AUC (test code = Vancomycin 39.8 AUC) [facility] HospitalSqbedmtQUPXYMADMN2725-22-16 16:22:00 Test Item Value Reference Range Interpretation Comments Coronavirus (COVID-19) Not Detected (04/04/21 ZEUS (test code = 11:22 AM) Coronavirus (COVID-19) ZEUS) [facility] [employer] [id number] 10:26:00 Test Item Value Reference Range Interpretation Comments ABO/Rh (test code = ABO/Rh) O POS [facility] [employer] [id number] 10:26:00 Test Item Value Reference Range Interpretation Comments Antibody Scrn (test Negative (04/04/21 5:26 code = Antibody Scrn) AM) [facility] [id number] 10:19:00 Test Item Value Reference Range Interpretation Comments RBC product (test code Product available = RBC product) 5(04/04/21 5:19 AM) [facility]2021-08-13 08:56:00 Test Item Value Reference Range Interpretation Comments Lactic Acid Lvl (test code = Lactic 1.1 0.5-2.2 Acid Lvl) [facility]2021-08-13 08:56:00 Test Item Value Reference Range Interpretation Comments Glucose Lvl (test code = Glucose Lvl) 120 70-99 [facility]2021-08-13 08:56:00 Test Item Value Reference Range Interpretation Comments BUN (test code = BUN) 40 7-22 [facility]2021-08-13 08:56:00 Test Item Value Reference Range Interpretation Comments Creatinine Lvl (test code = Creatinine 4.33 0.50-1.40 Lvl) [facility]2021-08-13 08:56:00 Test Item Value Reference Range Interpretation Comments Sodium Lvl (test code = Sodium Lvl) 138 135-145 [facility]2021-08-13 08:56:00 Test Item Value Reference Range Interpretation Comments Potassium Lvl (test code = Potassium 3.3 3.5-5.1 Lvl) [facility]2021-08-13 08:56:00 Test Item Value Reference Range Interpretation Comments Chloride Lvl (test code = Chloride Lvl) 110 95-109 [facility]2021-08-13 08:56:00 Test Item Value Reference Range Interpretation Comments CO2 (test code = CO2) 15 24-32 [facility]2021-08-13 08:56:00 Test Item Value Reference Range Interpretation Comments AGAP (test code = AGAP) 16.3 10.0-20.0 [facility]2021-08-13 08:56:00 Test Item Value Reference Range Interpretation Comments Calcium Lvl (test code = Calcium Lvl) 7.0 8.5-10.5 [place] 402711-08-13 08:56:00 Test Item Value Reference Range Interpretation Comments B/C Ratio (test code = B/C Ratio) 9 1 6-25 [place] [address]-08-13 08:56:00 Test Item Value Reference Range Interpretation Comments Total Protein (test code = Total 4.9 6.4-8.4 Protein) [place] [address]-08-13 08:56:00 Test Item Value Reference Range Interpretation Comments Albumin Lvl (test code = Albumin Lvl) 1.6 3.5-5.0 [place] [address]-08-13 08:56:00 Test Item Value Reference Range Interpretation Comments Globulin (test code = Globulin) 3.3 2.7-4.2 [place] [address]-08-13 08:56:00 Test Item Value Reference Range Interpretation Comments A/G Ratio (test code = A/G Ratio) 0.5 1 0.7-1.6 [place] [address]-08-13 08:56:00 Test Item Value Reference Range Interpretation Comments ALT (test code = ALT) 15 See_Comment [Auto mated message] The system which ge nerated this result transmit diamond reference range : <=65. The reference range was not used to interpr et this result as kamla l/abnormal. [place] 402711-08-13 08:56:00 Test Item Value Reference Range Interpretation Comments AST (test code = AST) 17 See_Comment [Auto mated message] The system which ge nerated this result transmit diamond reference range : <=37. The reference range was not used to interpr et this result as kamla l/abnormal. [place] 402711-08-13 08:56:00 Test Item Value Reference Range Interpretation Comments Alk Phos (test code = Alk Phos) 118 39-136 [place] 402711-08-13 08:56:00 Test Item Value Reference Range Interpretation Comments Bili Total (test code = Bili Total) 0.3 0.2-1.3 [place] [address]-08-13 08:56:00 Test Item Value Reference Range Interpretation Comments eGFR (test code = eGFR) 13 [place] 245491-08-13 08:56:00 Test Item Value Reference Range Interpretation Comments Neutrophils # (test code = Neutrophils 21.9 1.5-8.1 #) [place] 245491-08-13 08:56:00 Test Item Value Reference Range Interpretation Comments Lymphocytes # (test code = Lymphocytes 0.7 1.0-5.5 #) [facility]alePnbehphFRBKXVISQQ8110-44-24 08:56:00 Test Item Value Reference Range Interpretation Comments Monocytes # (test code 0.5 See_Comment [Aut omated message] The = Monocytes #) system which generated this result tra nsmitted reference range : <=0.8. The reference r germania was not used to int erpret this result as normal/abnormal . [facility] SunnyvaleMmnoriaDFEQXSSJZC0343-62-74 08:56:00 Test Item Value Reference Range Interpretation Comments Segs (test code = Segs) 81.0 45.0-75.0 [place] 245491-08-13 08:56:00 Test Item Value Reference Range Interpretation Comments Bands (test code = 14.0 See_Comment [Automat ed message] The Bands) system which ge nerated this result transmit diamond reference range : <=11.0. The reference r germania was not used to interpr et this result as kamla l/abnormal. [facility]aleAksvbspCUPRQEAJKX1605-59-68 08:56:00 Test Item Value Reference Range Interpretation Comments Lymphocytes (test code = Lymphocytes) 3.0 20.0-40.0 [place] [address]-08-13 08:56:00 Test Item Value Reference Range Interpretation Comments Monocytes (test code = Monocytes) 2.0 2.0-12.0 [place] [address]-08-13 08:56:00 Test Item Value Reference Range Interpretation Comments Atypical Lymphs (test code = Atypical 0.0 Lymphs) [place] 245491-08-13 08:56:00 Test Item Value Reference Range Interpretation Comments Plt Morph (test code = Normal (04/04/21 3:56 Plt Morph) AM) [place] [address]-08-13 08:56:00 Test Item Value Reference Range Interpretation Comments Anisocyte (test code = 1+ *ABN*(04/04/21 Anisocyte) 3:56 AM) [place] [address]-08-13 08:56:00 Test Item Value Reference Range Interpretation Comments Microcyte (test code = 3+ *ABN*(04/04/21 Microcyte) 3:56 AM) [place] [address]-08-13 08:56:00 Test Item Value Reference Range Interpretation Comments Hypochrom (test code = 1+ (04/04/21 3:56 AM) Hypochrom) [place] 245491-08-13 08:56:00 Test Item Value Reference Range Interpretation Comments WBC (test code = WBC) 23.1 3.7-10.4 [place] 245491-08-13 08:56:00 Test Item Value Reference Range Interpretation Comments RBC (test code = RBC) 3.34 4.20-5.40 [place] 245491-08-13 08:56:00 Test Item Value Reference Range Interpretation Comments Hgb (test code = Hgb) 6.8 12.0-16.0 [place] 245491-08-13 08:56:00 Test Item Value Reference Range Interpretation Comments Hct (test code = Hct) 22.6 36.0-48.0 [facility]valeOfixplsGKMUUQYAKX2168-04-07 08:56:00 Test Item Value Reference Range Interpretation Comments MCV (test code = MCV) 67.6 80.0-98.0 [facility]valeYuomqrkNIYUAMDBZB1962-53-91 08:56:00 Test Item Value Reference Range Interpretation Comments MCH (test code = MCH) 20.5 pg 27.0-31.0 [facility] SunnyvaleUxgdhaxOQOYQUXCWW9628-27-60 08:56:00 Test Item Value Reference Range Interpretation Comments MCHC (test code = MCHC) 30.3 32.0-36.0 [facility]valePqwegleHWLXMQWGSO1451-97-40 08:56:00 Test Item Value Reference Range Interpretation Comments RDW (test code = RDW) 18.9 11.5-14.5 [facility]valeAodiuppJMZTFRNNOF7063-95-61 08:56:00 Test Item Value Reference Range Interpretation Comments Platelet (test code = Platelet) 172 133-450 [facility] SunnyvaleYfyqpslTIPPOEBQJL7826-74-08 08:56:00 Test Item Value Reference Range Interpretation Comments MPV (test code = MPV) 8.3 7.4-10.4 [facility]2021-08-13 07:06:00 Test Item Value Reference Range Interpretation Comments Glucose Lvl (test code = Glucose Lvl) 111 70-99 [facility]2021-08-13 07:06:00 Test Item Value Reference Range Interpretation Comments BUN (test code = BUN) 40 7-22 [place] 402711-08-13 07:06:00 Test Item Value Reference Range Interpretation Comments Creatinine Lvl (test code = Creatinine 4.25 0.50-1.40 Lvl) [place] 402711-08-13 07:06:00 Test Item Value Reference Range Interpretation Comments Sodium Lvl (test code = Sodium Lvl) 137 135-145 [place] 402711-08-13 07:06:00 Test Item Value Reference Range Interpretation Comments Potassium Lvl (test code = Potassium 3.5 3.5-5.1 Lvl) [place] 402711-08-13 07:06:00 Test Item Value Reference Range Interpretation Comments Chloride Lvl (test code = Chloride Lvl) 109 95-109 [facility]2021-08-13 07:06:00 Test Item Value Reference Range Interpretation Comments CO2 (test code = CO2) 16 24-32 [place] 402711-08-13 07:06:00 Test Item Value Reference Range Interpretation Comments AGAP (test code = AGAP) 15.5 10.0-20.0 [place] 402711-08-13 07:06:00 Test Item Value Reference Range Interpretation Comments Calcium Lvl (test code = Calcium Lvl) 6.9 8.5-10.5 [place] 402711-08-13 07:06:00 Test Item Value Reference Range Interpretation Comments B/C Ratio (test code = B/C Ratio) 9 1 6-25 [place] 402711-08-13 07:06:00 Test Item Value Reference Range Interpretation Comments Total Protein (test code = Total 5.0 6.4-8.4 Protein) [place] 402711-08-13 07:06:00 Test Item Value Reference Range Interpretation Comments Albumin Lvl (test code = Albumin Lvl) 1.6 3.5-5.0 [place] 402711-08-13 07:06:00 Test Item Value Reference Range Interpretation Comments Globulin (test code = Globulin) 3.4 2.7-4.2 [place] 402711-08-13 07:06:00 Test Item Value Reference Range Interpretation Comments A/G Ratio (test code = A/G Ratio) 0.5 1 0.7-1.6 [facility]CHE[facility] [id number] 07:06:00 Test Item Value Reference Range Interpretation Comments ALT (test code = ALT) 14 See_Comment [Auto mated message] The system which ge nerated this result transmit diamond reference range : <=65. The reference range was not used to interpr et this result as kamla l/abnormal. [facility] ClearDATA [id number] 07:06:00 Test Item Value Reference Range Interpretation Comments AST (test code = AST) 22 See_Comment [Auto mated message] The system which ge nerated this result transmit diamond reference range : <=37. The reference range was not used to interpr et this result as kamla l/abnormal. [facility] ClearDATA [id number] 07:06:00 Test Item Value Reference Range Interpretation Comments Alk Phos (test code = Alk Phos) 116 39-136 [facility] ClearDATA [id number] 07:06:00 Test Item Value Reference Range Interpretation Comments Bili Total (test code = Bili Total) 0.2 0.2-1.3 [facility] ClearDATA [id number] 07:06:00 Test Item Value Reference Range Interpretation Comments eGFR (test code = eGFR) 13 [facility] [place]2021-08-13 07:06:00 Test Item Value Reference Range Interpretation Comments Phosphorus (test code = Phosphorus) 4.6 2.5-4.5 [facility] ClearDATA [id number] 07:06:00 Test Item Value Reference Range Interpretation Comments Magnesium Lvl (test code = Magnesium 1.5 1.8-2.4 Lvl) [facility] ClearDATA [id number] 07:06:00 Test Item Value Reference Range Interpretation Comments Lipase Lvl (test code = Lipase Lvl) 44 73-393 [facility] [place]2021-08-13 07:06:00 Test Item Value Reference Range Interpretation Comments Lactic Acid Lvl (test code = Lactic 3.1 0.5-2.2 Acid Lvl) [facility] OjOs.comBACTERIAL NewsBreakZQMLMWTW0248-14-67 07:05:00 Test Item Value Reference Range Interpretation Comments Source Strep (test code Urine *NA*(04/04/21 = Source Strep) 2:05 AM) [facility] OdersunCTERIAL - [id number] 07:05:00 Test Item Value Reference Range Interpretation Comments Strep pneumoniae Ag Negative (04/04/21 (test code = Strep 2:05 AM) pneumoniae Ag) [place] 610571-08-13 07:05:00 Test Item Value Reference Range Interpretation Comments Ca Ion WB (test code = Ca Ion WB) 0.94 1.05-1.25 [place] 610571-08-13 07:05:00 Test Item Value Reference Range Interpretation Comments Ca Norm WB (test code = Ca Norm WB) 0.86 1.05-1.25 [facility] CampusFyrkiztPTNMMUYKEK6379-68-39 07:03:00 Test Item Value Reference Range Interpretation Comments HIV Ag/Ab 4th Gen Negative *NA*(04/04/21 (test code = HIV 2:03 AM) Ag/Ab 4th Gen) [place] 810311-08-13 07:03:00 Test Item Value Reference Range Interpretation Comments Vir Ld-HIV1 RNA (test Not Detected (04/04/21 code = Vir Ld-HIV1 2:03 AM) RNA) [place] 810311-08-13 07:03:00 Test Item Value Reference Range Interpretation Comments Log10 HIV1 (test code = Log10 HIV1) no gt [facility]2021-08-13 07:03:00 Test Item Value Reference Range Interpretation Comments U Creatinine (test code = U 213.00 Creatinine) [place] 561071-08-13 07:03:00 Test Item Value Reference Range Interpretation Comments U Sodium (test code = U Sodium) 21 [facility]2021-08-13 07:03:00 Test Item Value Reference Range Interpretation Comments U Potassium (test code = U Potassium) 60.9 [place] 561071-08-13 07:03:00 Test Item Value Reference Range Interpretation Comments U Chloride (test code = U Chloride) 36 [facility]2021-08-13 07:03:00 Test Item Value Reference Range Interpretation Comments U Creatinine (test code = U 213.00 Creatinine) [place] 561071-08-13 07:03:00 Test Item Value Reference Range Interpretation Comments U Protein (test code = U Protein) 973.6 [place] 561071-08-13 07:03:00 Test Item Value Reference Range Interpretation Comments U Prot/Creat (test code = U 4.57 1 Prot/Creat) [facility] [id number] 04:43:00 Test Item Value Reference Range Interpretation Comments BNP (test code = BNP) 745 [facility]CHE[facility] [id number] 04:43:00 Test Item Value Reference Range Interpretation Comments Lactic Acid Lvl (test code = Lactic 1.6 0.5-2.2 Acid Lvl) [facility] CampusMOLECULAR [id number] 04:43:00 Test Item Value Reference Range Interpretation Comments Source Respiratory Nasophrngl Swb Panel PCR (test code = *NA*(04/03/21 11:43 PM) Source Respiratory Panel PCR) [facility] [id number] 04:43:00 Test Item Value Reference Range Interpretation Comments Influenza A PCR (test Negative *NA*(04/03/21 code = Influenza A PCR) 11:43 PM) [facility] [id number] 04:43:00 Test Item Value Reference Range Interpretation Comments Influenza B PCR (test Negative *NA*(04/03/21 code = Influenza B PCR) 11:43 PM) [facility] [id number] 04:43:00 Test Item Value Reference Range Interpretation Comments RSV PCR (test code = Negative *NA*(04/03/21 RSV PCR) 11:43 PM) [facility]ZoinmluZTWVLHKPFX8800-83-49 02:10:00 Test Item Value Reference Range Interpretation Comments D-Dimer (test code = D-Dimer) >20 ug/mL FEU [facility] C[id number] 01:51:00 Test Item Value Reference Range Interpretation Comments WBC (test code = WBC) 8.6 3.7-10.4 [facility] CampusPxkjsfoIPDEQHUGTQ3289-58-40 01:51:00 Test Item Value Reference Range Interpretation Comments RBC (test code = RBC) 3.72 4.20-5.40 [facility] HospitalRzvrdydYAHZHKNHIS2253-10-79 01:51:00 Test Item Value Reference Range Interpretation Comments Hgb (test code = Hgb) 7.7 12.0-16.0 [facility] CampusXdgclbnRFOPBKFEJF8133-40-66 01:51:00 Test Item Value Reference Range Interpretation Comments Hct (test code = Hct) 24.9 36.0-48.0 [place] 245491-08-13 01:51:00 Test Item Value Reference Range Interpretation Comments MCV (test code = MCV) 67.0 80.0-98.0 [place] 245491-08-13 01:51:00 Test Item Value Reference Range Interpretation Comments MCH (test code = MCH) 20.7 pg 27.0-31.0 [place] 245491-08-13 01:51:00 Test Item Value Reference Range Interpretation Comments MCHC (test code = MCHC) 30.9 32.0-36.0 [place] 245491-08-13 01:51:00 Test Item Value Reference Range Interpretation Comments RDW (test code = RDW) 18.4 11.5-14.5 [place] 245491-08-13 01:51:00 Test Item Value Reference Range Interpretation Comments Platelet (test code = Platelet) 173 133-450 [facility]aleErpbspdRYFMMIIPEE5753-66-36 01:51:00 Test Item Value Reference Range Interpretation Comments MPV (test code = MPV) 8.3 7.4-10.4 [facility]aleUnyczooJDZWHFNZPU1633-52-10 01:51:00 Test Item Value Reference Range Interpretation Comments Microcyte (test code = 3+ *NA*(04/03/21 8:51 Microcyte) PM) [place] 245491-08-13 01:51:00 Test Item Value Reference Range Interpretation Comments Neutrophils # (test code = Neutrophils 8.2 1.5-8.1 #) [facility]aleWsrrhbkOKJCPIYTVQ3946-70-26 01:51:00 Test Item Value Reference Range Interpretation Comments Lymphocytes # (test code = Lymphocytes 0.2 1.0-5.5 #) [place] 245491-08-13 01:51:00 Test Item Value Reference Range Interpretation Comments Monocytes # (test code 0.3 See_Comment [Aut omated message] The = Monocytes #) system which generated this result tra nsmitted reference range : <=0.8. The reference r germania was not used to int erpret this result as normal/abnormal . [place] 245491-08-13 01:51:00 Test Item Value Reference Range Interpretation Comments Segs (test code = Segs) 82.0 45.0-75.0 [facility]aleRkyvlisHYQIBRCCHN8908-45-84 01:51:00 Test Item Value Reference Range Interpretation Comments Bands (test code = 13.0 See_Comment [Automat ed message] The Bands) system which ge nerated this result transmit diamond reference range : <=11.0. The reference r germania was not used to interpr et this result as kamla l/abnormal. [facility] SunnyvaleUbjuhypRHTOVFOMCP6484-57-85 01:51:00 Test Item Value Reference Range Interpretation Comments Lymphocytes (test code = Lymphocytes) 2.0 20.0-40.0 [facility]valeSfaqcufIMCJPSKHJA3958-11-62 01:51:00 Test Item Value Reference Range Interpretation Comments Monocytes (test code = Monocytes) 3.0 2.0-12.0 [facility]valeNhopyccWOSFTOSSWQ3073-99-60 01:51:00 Test Item Value Reference Range Interpretation Comments Atypical Lymphs (test code = Atypical 0.0 Lymphs) [facility]aleZxnxvdjHFDRGMEELD1770-40-45 01:51:00 Test Item Value Reference Range Interpretation Comments Plt Morph (test code = Normal (04/03/21 8:51 Plt Morph) PM) [facility]aleIvfqxakVQGOQGATEW9391-14-42 01:51:00 Test Item Value Reference Range Interpretation Comments Anisocyte (test code = 1+ *ABN*(04/03/21 Anisocyte) 8:51 PM) [facility]aleSdrgaqiNVVKKSMDHE2194-66-24 01:51:00 Test Item Value Reference Range Interpretation Comments Hypochrom (test code = 1+ (04/03/21 8:51 PM) Hypochrom) [facility] AND [id number] 01:51:00 Test Item Value Reference Range Interpretation Comments UA Color (test code = Kari *ABN*(04/03/21 UA Color) 8:51 PM) [facility] AND [id number] 01:51:00 Test Item Value Reference Range Interpretation Comments UA Turbidity (test code Marked *ABN*(04/03/21 = UA Turbidity) 8:51 PM) [facility] AND [id number] 01:51:00 Test Item Value Reference Range Interpretation Comments UA Spec Grav (test code = UA Spec 1.018 1 Grav) [facility] AND [id number] 01:51:00 Test Item Value Reference Range Interpretation Comments UA pH (test code = UA pH) 5.0 1 5.0-8.0 [facility] AND [id number] 01:51:00 Test Item Value Reference Range Interpretation Comments UA Protein (test code = UA >=300 mg/dL Protein) [facility] AND [id number] 01:51:00 Test Item Value Reference Range Interpretation Comments UA Glucose (test code = UA Negative mg/dL Glucose) [facility] AND [id number] 01:51:00 Test Item Value Reference Range Interpretation Comments UA Ketones (test code = UA Negative mg/dL Ketones) [facility] AND [id number] 01:51:00 Test Item Value Reference Range Interpretation Comments UA Bili (test code = Negative *NA*(04/03/21 UA Bili) 8:51 PM) [facility] AND [id number] 01:51:00 Test Item Value Reference Range Interpretation Comments UA Blood (test code = Moderate *ABN*(04/03/21 UA Blood) 8:51 PM) [facility] AND [id number] 01:51:00 Test Item Value Reference Range Interpretation Comments UA Nitrite (test code Negative (04/03/21 8:51 = UA Nitrite) PM) [facility] AND [id number] 01:51:00 Test Item Value Reference Range Interpretation Comments UA Leuk Est (test code Trace *ABN*(04/03/21 = UA Leuk Est) 8:51 PM) [facility] AND [id number] 01:51:00 Test Item Value Reference Range Interpretation Comments UA WBC (test code = 51 See_Comment [Automa diamond message] The UA WBC) system which ge nerated this result transmit diamond reference range : <=5. The reference range was not used to interpr et this result as kamla l/abnormal. [facility] AND [id number] 01:51:00 Test Item Value Reference Range Interpretation Comments UA RBC (test code = 22 See_Comment [Automa diamond message] The UA RBC) system which ge nerated this result transmit diamond reference range : <=2. The reference range was not used to interpr et this result as kamla l/abnormal. [facility] AND [id number] 01:51:00 Test Item Value Reference Range Interpretation Comments UA Bacteria (test code = UA Occasional /HPF Bacteria) [facility] AND [id number] 01:51:00 Test Item Value Reference Range Interpretation Comments UA Mucus (test code = UA Mucus) Few /LPF [facility]ann[facility] AND [id number] 01:51:00 Test Item Value Reference Range Interpretation Comments UA Hyal Cast (test 1 See_Comment [Automat ed message] The code = UA Hyal Cast) system which generated this result transmit diamond reference range : <=2. The reference range was not used to interpr et this result as kamla l/abnormal. [facility] AND [id number] 01:51:00 Test Item Value Reference Range Interpretation Comments UA Mecca Yeast (test code = UA Occasional /HPF Mecca Yeast) [facility] AND [id number] 01:51:00 Test Item Value Reference Range Interpretation Comments UA Sq Epi (test code = UA Sq Epi) None Seen [facility] AND [id number] 01:51:00 Test Item Value Reference Range Interpretation Comments UA Urobilinogen (test code = UA <=1.0 mg/dL 0.1-1.0 Urobilinogen) [facility] AND [id number] 01:51:00 Test Item Value Reference Range Interpretation Comments UA CaOx Inessa (test code = UA Occasional /HPF CaOx Inessa) [facility]annCulture: [id number] 01:51:00 Test Item Value Reference Range Interpretation Comments Culture: Urine (test code = No Growth Culture: Urine) [facility] CampusCARDIAC [id number] 01:30:00 Test Item Value Reference Range Interpretation Comments BNP (test code = BNP) 589 [facility]annANEMIA [id number] 01:00:00 Test Item Value Reference Range Interpretation Comments Ferritin Lvl (test code = Ferritin Lvl) 136 5-204 [facility]annCARDIAC [id number] 01:00:00 Test Item Value Reference Range Interpretation Comments Total CK (test code = Total CK) 128 12-191 [facility]annCARD[facility]AC [id number] 01:00:00 Test Item Value Reference Range Interpretation Comments Troponin-I (test code no gt See_Comment [Auto mated message] The = Troponin-I) system which g enerated this result transmit diamond reference range : <=0.40. The reference r germania was not used to interpr et this result as kamla l/abnormal. [place] 402711-08-13 01:00:00 Test Item Value Reference Range Interpretation Comments LDH (test code = LDH) 293 98-192 [place] 402711-08-13 01:00:00 Test Item Value Reference Range Interpretation Comments Procalcitonin Lvl (test 55.45 See_Comment [Au tomated message] code = Procalcitonin Lvl) Th e system which generated this result transmitted ref erence range: <=0.10. The reference range was not used to interpr et this result as normal/abnormal . [place] 402711-08-13 01:00:00 Test Item Value Reference Range Interpretation Comments Glucose Lvl (test code = Glucose Lvl) 71 70-99 [facility] CampusLeanApps [id number] 01:00:00 Test Item Value Reference Range Interpretation Comments BUN (test code = BUN) 38 7-22 [place] 402711-08-13 01:00:00 Test Item Value Reference Range Interpretation Comments Creatinine Lvl (test code = Creatinine 3.72 0.50-1.40 Lvl) [place] 402711-08-13 01:00:00 Test Item Value Reference Range Interpretation Comments Sodium Lvl (test code = Sodium Lvl) 138 135-145 [facility] CampusLeanApps [id number] 01:00:00 Test Item Value Reference Range Interpretation Comments Potassium Lvl (test code = Potassium 3.3 3.5-5.1 Lvl) [place] 402711-08-13 01:00:00 Test Item Value Reference Range Interpretation Comments Chloride Lvl (test code = Chloride Lvl) 111 95-109 [facility] CampusLeanApps [id number] 01:00:00 Test Item Value Reference Range Interpretation Comments CO2 (test code = CO2) 15 24-32 [place] 402711-08-13 01:00:00 Test Item Value Reference Range Interpretation Comments Calcium Lvl (test code = Calcium Lvl) 7.4 8.5-10.5 [facility] CampusLeanApps [id number] 01:00:00 Test Item Value Reference Range Interpretation Comments Total Protein (test code = Total 5.0 6.4-8.4 Protein) [facility]En[facility] [id number] 01:00:00 Test Item Value Reference Range Interpretation Comments Albumin Lvl (test code = Albumin Lvl) 1.7 3.5-5.0 [facility] [id number] 01:00:00 Test Item Value Reference Range Interpretation Comments ALT (test code = ALT) 17 See_Comment [Auto mated message] The system which ge nerated this result transmit diamond reference range : <=65. The reference range was not used to interpr et this result as kamla l/abnormal. [facility] [id number] 01:00:00 Test Item Value Reference Range Interpretation Comments AST (test code = AST) 15 See_Comment [Auto mated message] The system which ge nerated this result transmit diamond reference range : <=37. The reference range was not used to interpr et this result as kamla l/abnormal. [facility] [id number] 01:00:00 Test Item Value Reference Range Interpretation Comments Alk Phos (test code = Alk Phos) 146 39-136 [facility] [id number] 01:00:00 Test Item Value Reference Range Interpretation Comments Bili Total (test code = Bili Total) 0.5 0.2-1.3 [facility] CampusLean[facility] [id number] 01:00:00 Test Item Value Reference Range Interpretation Comments AGAP (test code = AGAP) 15.3 10.0-20.0 [facility] [id number] 01:00:00 Test Item Value Reference Range Interpretation Comments B/C Ratio (test code = B/C Ratio) 10 1 6-25 [facility] [id number] 01:00:00 Test Item Value Reference Range Interpretation Comments Globulin (test code = Globulin) 3.3 2.7-4.2 [facility] [id number] 01:00:00 Test Item Value Reference Range Interpretation Comments A/G Ratio (test code = A/G Ratio) 0.5 1 0.7-1.6 [facility] [id number] 01:00:00 Test Item Value Reference Range Interpretation Comments eGFR (test code = eGFR) 15 [id number] 01:00:00 Test Item Value Reference Range Interpretation Comments PT (test code = PT) 14.5 s 12.0-14.7 [id number] 01:00:00 Test Item Value Reference Range Interpretation Comments INR (test code = INR) 1.14 1 0.85-1.17 [facility]HexnrzdVRUBJMRTXF6180-46-64 01:00:00 Test Item Value Reference Range Interpretation Comments C-REACTIVE PROTEIN (test code = 176.0 C-REACTIVE PROTEIN) [facility] CenterMzzzxlsHGVBGAFOMJ9086-64-56 01:00:00 Test Item Value Reference Range Interpretation Comments Coronavirus (COVID-19) Not Detected (04/03/21 ZEUS (test code = 8:00 PM) Coronavirus (COVID-19) ZEUS) [facility]2021-08-13 01:00:00 Test Item Value Reference Range Interpretation Comments E. coli (test code = Not Detected (04/03/21 E. coli) 8:00 PM) [place] 239871-08-13 01:00:00 Test Item Value Reference Range Interpretation Comments K. oxytoca (test code Not Detected (04/03/21 = K. oxytoca) 8:00 PM) [place] 239871-08-13 01:00:00 Test Item Value Reference Range Interpretation Comments K. pneumoniae (test code Detected = K. pneumoniae) *ABN*(04/03/21 8:00 PM) [facility]2021-08-13 01:00:00 Test Item Value Reference Range Interpretation Comments P. aeruginosa (test code Not Detected (04/03/21 = P. aeruginosa) 8:00 PM) [facility]2021-08-13 01:00:00 Test Item Value Reference Range Interpretation Comments Acinetobacter spp. (test Not Detected code = Acinetobacter (04/03/21 8:00 PM) spp.) [place] 239871-08-13 01:00:00 Test Item Value Reference Range Interpretation Comments Citrobacter spp. (test Not Detected (04/03/21 code = Citrobacter spp.) 8:00 PM) [place] 239871-08-13 01:00:00 Test Item Value Reference Range Interpretation Comments Enterobacter spp. (test Not Detected code = Enterobacter spp.) (04/03/21 8:00 PM) [place] 239871-08-13 01:00:00 Test Item Value Reference Range Interpretation Comments Proteus spp. (test Not Detected (04/03/21 code = Proteus spp.) 8:00 PM) [place] 8[address]01-08-13 01:00:00 Test Item Value Reference Range Interpretation Comments CTX-M (ESBL) (test Not Detected (04/03/21 code = CTX-M (ESBL)) 8:00 PM) [place] 239871-08-13 01:00:00 Test Item Value Reference Range Interpretation Comments IMP (carbapenemase) Not Detected (04/03/21 (test code = IMP 8:00 PM) (carbapenemase)) [place] 239871-08-13 01:00:00 Test Item Value Reference Range Interpretation Comments KPC (carbapenemase) Not Detected (04/03/21 (test code = KPC 8:00 PM) (carbapenemase)) [place] 239871-08-13 01:00:00 Test Item Value Reference Range Interpretation Comments NDM (carbapenemase) Not Detected (04/03/21 (test code = NDM 8:00 PM) (carbapenemase)) [place] [address]-08-13 01:00:00 Test Item Value Reference Range Interpretation Comments OXA (carbapenemase) Not Detected (04/03/21 (test code = OXA 8:00 PM) (carbapenemase)) [place] [address]-08-13 01:00:00 Test Item Value Reference Range Interpretation Comments VIM (carbapenemase) Not Detected (04/03/21 (test code = VIM 8:00 PM) (carbapenemase)) [facility]
[2022-09-15] MEDS ORDERED: carvediloL 6.25 MG TAB ONE (15:26)
[2022-09-15] MEDS ORDERED: cloNIDine HCL 0.1 MG TAB ONE (15:27)
[2022-09-15 15:32] LABS: Absolute Lymphocytes (CBC) 1.2 K/uL (0.7-4.9); Hematocrit 24.4 % (36.0-45.0); Lymphocytes % 14.4 % (15.3-44.8); MCV 77.9 fL (80-100); MPV 8.9 fL (7.6-11.3); RBC Red Blood Cell Count 3.14 M/uL (3.86-4.86)
--- NOTE | 2022-09-15 15:41 | RAD REPORT ---
EXAM DESCRIPTION: Aries Single View09/15/2022 3:27 pm CLINICAL HISTORY: Chest pain COMPARISON: 2021 FINDINGS: Mild bilateral pulmonary opacities. Heart is moderately enlarged Central venous line in place IMPRESSION: Mild pulmonary edema
[2022-09-15 16:04] LABS: Albumin 2.5 g/dL (3.4-5.0); Bilirubin Direct 0.2 mg/dL (0-0.2); Bilirubin Total 0.5 mg/dL (0.2-1.0); Magnesium 1.8 mg/dL (1.6-2.4); Protein, Total 5.3 g/dL (6.4-8.2)
[2022-09-15 16:08] LABS: Potassium 2.9 mmol/L (3.5-5.1)
[2022-09-15] MEDS ORDERED: POTASSIUM CL SA 10 MEQ TAB PO ONE (17:30)
--- NOTE | 2022-09-15 17:42 | EDPHYS ---
Physician Documentation [facility] Name: Arianne Mendez Age: 32 yrs Sex: Female : 1990 Arrival Date: 09/15/2022 Time: 14:38 Bed 24 Private MD: ED Physician Nestor Cabrera HPI: 09/15 14:58 This 32 yrs old Black Female presents to ER via Ambulatory with complaints of Chest ms3 Pain. 14:58 32-year-old female with past medical history of anemia, diverticulitis, hypertension, ms3 end-stage renal disease, lupus presents with her mother for intermittent sharp left chest pain that has been ongoing for 2 weeks. Patient states she notices this discomfort when her blood pressure is elevated. Patient denies alleviating or inciting factors.. 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 - Social history:: Smoking status: Patient denies any tobacco usage or history of. ROS: 14:58 Constitutional: Negative for fever, and chills. Neck: Negative for injury, pain, and ms3 swelling. 14:58 Respiratory: Negative for shortness of breath, cough, wheezing, and pleuritic chest pain, Abdomen/GI: Negative for abdominal pain, nausea, vomiting, diarrhea, and constipation, Skin: Negative for injury, rash, and discoloration. 14:58 Cardiovascular: Positive for chest pain. 14:58 All other systems are negative. Exam: 14:58 Constitutional: This is a well developed, well nourished patient who is awake, alert, ms3 and in no acute distress. Head/Face: Normocephalic, atraumatic. Neck: Trachea midline, no cervical lymphadenopathy. Supple, full range of motion without nuchal rigidity, or vertebral point tenderness. No Meningismus. Chest/axilla: Normal chest wall appearance and motion. Nontender with no deformity. Cardiovascular: Regular rate and rhythm with a normal S1 and S2. No gallops, murmurs, or rubs. Normal PMI, no JVD. No pulse deficits. Respiratory: Lungs have equal breath sounds bilaterally, clear to auscultation and percussion. No rales, rhonchi or wheezes noted. No increased work of breathing, no retractions or nasal flaring. 14:58 Abdomen/GI: Inspection: abdomen appears normal, obese scar(s), LLQ ostomy. 15:00 ECG was reviewed by the Attending Physician. ms3 Vital Signs: 14:38 BP 171 / 99; Pulse 73; Resp 16; Temp 98.9; Pulse Ox 100% on R/A; Weight 84.37 kg; ss Height 5 ft. 3 in. (160.02 cm); Pain 0/10; 14:45 BP 170 / 101; Pulse 66; Resp 16; Pulse Ox 98% ; ko1 15:00 BP 184 / 107; Pulse 68; Resp 16; Pulse Ox 98% ; ko1 15:45 BP 179 / 105; Pulse 66; Resp 18; Pulse Ox 100% ; ko1 16:21 BP 159 / 94; Pulse 58; Resp 16; Pulse Ox 99% ; ko1 17:10 BP 172 / 103; Pulse 73; Resp 16; Pulse Ox 100% ; ko1 14:38 Body Mass Index 32.95 (84.37 kg, 160.02 cm) ss MDM: 14:57 Patient medically screened. ms3 14:58 Differential diagnosis: abnormal EKG, acute myocardial infarction, coronary artery ms3 disease chest wall pain, Hypertension. 17:24 HEART Score: History: Slightly Suspicious (0), ECG: Normal (0), Age: < or = 45 years ms3 (0), Risk Factors: 1 or 2 risk factors (1), [Hypertension] Troponin: < or = 1 x Normal Limit (0), Total Score = 1. Data reviewed: vital signs, nurses notes, lab test result(s), EKG, radiologic studies, and as a result, I will discharge patient. Consideration of Admission/Observation Escalation of care including admission/observation considered. No emergent medical condition necessitating admission found at this time. Management of patient was discussed with the following: Air Saw Operator: Discussed patient's case with Dr. Mancia. He recommends 20 mEq potassium chloride p.o. he states he instructed patient how to take her antihypertensive medications today and she has medications at home.. I considered the following discharge prescriptions or medication management in the emergency department Medications were administered in the Emergency Department. See MAR. 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 Care significantly affected by the following chronic conditions: Hypertension, End-stage renal disease. Counseling: I had a detailed discussion with the patient and/or guardian regarding: the historical points, exam findings, and any diagnostic results supporting the discharge/admit diagnosis, lab results, radiology results, the need for outpatient follow up, to return to the emergency department if symptoms worsen or persist or if there are any questions or concerns that arise at home. ED course: Discussed labs, EKG, chest x-ray with patient and her mother. Patient to follow-up with Dr. Joseph as discussed. All questions were answered. Return precautions discussed include shortness of breath, nausea, vomiting, fevers, worsening condition, or any other concerns. On reevaluation patient is alert and oriented x4, no apparent distress, nontoxic, speaking full sentences.. 09/15 14:57 Order name: Basic Metabolic Panel; Complete Time: 16: ms09/15 14:57 Order name: CBC with Diff; Complete Time: 16:09/15 14:57 Order name: LFT's; Complete Time: 16:3 09/15 14:57 Order name: Magnesium; Complete Time: 16:09/15 14:57 Order name: Troponin HS; Complete Time: 16:09/15 14:57 Order name: XRAY Chest (1 view); Complete Time: 16:22 3 09/15 14:57 Order name: EKG; Complete Time: 14: ms3 09/15 14:57 Order name: Cardiac monitoring; Complete Time: 14: ms09/15 14:57 Order name: EKG - Nurse/Tech; Complete Time: 14:58 ms09/15 14:57 Order name: IV Saline Lock; Complete Time: 15:25 ms3 09/15 14:57 Order name: Labs collected and sent; Complete Time: 15:09/15 14:57 Order name: O2 Per Protocol; Complete Time: 14:58 ms3 09/15 14:57 Order name: O2 Sat Monitoring; Complete Time: 14:58 ms3 EC:00 Rate is 65 beats/min. Rhythm is regular. QRS [place] is Normal. [place] interval is normal. QRS ms3 interval is normal. QT interval is normal. Clinical impression: NSR w/ Non-specific ST/T Changes. Interpreted by me. Reviewed by me. Administered Medications: 15:31 Drug: carvedilol 25 mg Route: PO; ko1 15:31 Drug: cloNIDine 0.1 mg Route: PO; ko1 17:30 Drug: Potassium Chloride 20 mEq Route: PO; ko1 Disposition Summary: 09/15/22 17:41 Discharge Ordered Location: Home ms3 Condition: Stable ms3 Diagnosis - Hypokalemia ms3 - Chest pain, unspecified ms3 - Essential (primary) hypertension ms3 Followup: ms3 - With: Private Physician - When: 2 - 3 days - Reason: Recheck today's complaints, Re-evaluation by your physician Discharge Instructions: - Discharge Summary Sheet ms3 - Nonspecific Chest Pain, Adult ms3 - Hypertension, Adult ms3 Forms: - Medication Reconciliation Form ms3 - Thank You Letter ms3 - Antibiotic Education ms3 - Prescription Opioid Use ms3 Signatures: Dispatcher [employer] Olga Espinoza, RN Nestor Rodrigez DO DO ms3 Anu Pritchett, RN RN ko1
--- NOTE | 2022-09-15 17:42 | ER ---
Nurse's Notes [facility] Name: Arianne Mendez Age: 32 yrs Sex: Female : 1990 Arrival Date: 09/15/2022 Time: 14:38 Bed 24 Private MD: Diagnosis: Hypokalemia;Chest pain, unspecified;Essential (primary) hypertension Presentation: 09/15 14:38 Chief complaint: Patient states: 2 episodes of L sided chest numbness lasting only ss moments. Pt reports she had an episode this morning and was seen at [facility] and was told that everything was normal. Was at dialysis when she began to have another episode. Pt has no complaints at this time. Coronavirus screen: Client denies travel out of the [place] in the last 14 days. Ebola Screen: Patient denies exposure to infectious person. Patient denies travel to an Ebola-affected area in the 21 days before illness onset. Initial Sepsis Screen: Does the patient meet any 2 criteria? No. Patient's initial sepsis screen is negative. Does the patient have a suspected source of infection? No. Patient's initial sepsis screen is negative. Risk Assessment: Do you want to hurt yourself or someone else? Patient reports no desire to harm self or others. Onset of symptoms was September 15, 2022. 14:38 Method Of Arrival: Ambulatory ss 14:38 Acuity: MADY 3 ss Triage Assessment: 15:00 General: Appears in no apparent distress. uncomfortable, Behavior is calm, cooperative, ko1 appropriate for age. Pain: Denies pain. Cardiovascular: Reports chest pain. 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 - Social history:: Smoking status: Patient denies any tobacco usage or history of. Screenin:45 [facility] ED Fall Risk Assessment (Adult) History of falling in the last 3 months, ko1 including since admission Yes- single mechanical fall (1 pt) Confusion or Disorientation No (0 pts) Intoxicated or Sedated No (0 pts) Impaired Gait No (0 pts) Mobility Assist Device Used No (0 pt) Altered Elimination No (0 pt) Score/Fall Risk Level 0 - 2 = Low Risk Oriented to surroundings, Maintained a safe environment, Educated pt \T\ family on fall prevention, incl call for assistance when getting out of bed, Assessed \T\ reinforced patient's understanding of fall precautions, Provided non-skid footwear, Hourly rounding (assess needs \T\ fall precautionary measures) done, Used ambulatory aids as needed (educated on \T\ assisted with), Used gait belt as appropriate. Abuse screen: Denies threats or abuse. Denies injuries from another. Nutritional screening: No deficits noted. Tuberculosis screening: No symptoms or risk factors identified. Assessment: 15:33 Reassessment: Dr. Cabrera notified of critical lab value. PLT count 77. ss 18:00 Pain: Pain does not radiate. Pain began. ko1 Vital Signs: 14:38 BP 171 / 99; Pulse 73; Resp 16; Temp 98.9; Pulse Ox 100% on R/A; Weight 84.37 kg; ss Height 5 ft. 3 in. (160.02 cm); Pain 0/10; 14:45 BP 170 / 101; Pulse 66; Resp 16; Pulse Ox 98% ; ko1 15:00 BP 184 / 107; Pulse 68; Resp 16; Pulse Ox 98% ; ko1 15:45 BP 179 / 105; Pulse 66; Resp 18; Pulse Ox 100% ; ko1 16:21 BP 159 / 94; Pulse 58; Resp 16; Pulse Ox 99% ; ko1 17:10 BP 172 / 103; Pulse 73; Resp 16; Pulse Ox 100% ; ko1 14:38 Body Mass Index 32.95 (84.37 kg, 160.02 cm) ss ED Course: 14:38 Patient arrived in ED. ss 14:43 Triage completed. ss 14:43 Arm band placed on right wrist. ss 14:46 Nestor Cabrera DO is Attending Physician. ms3 14:48 EKG done, by ED staff. tm3 14:53 Anu Pritchett, RN is Primary Nurse. ko1 15:25 Basic Metabolic Panel Sent. ko1 15:25 CBC with Diff Sent. ko1 15:25 LFT's Sent. ko1 15:25 Magnesium Sent. ko1 15:25 Troponin HS Sent. ko1 15:29 XRAY Chest (1 view) In Process Unspecified. EDMS 15:31 Inserted saline lock: ,using aseptic technique. 20 gauge in L AC placed. US guided. ss Patient maintains SpO2 saturation greater than 95% on room air. 15:45 Patient has correct armband on for positive identification. Placed in gown. Bed in low ko1 position. Call light in reach. Side rails up X2. Adult w/ patient. Client placed on continuous cardiac and pulse oximetry monitoring. NIBP monitoring applied. wall cleaner on. Door closed. Noise minimized. Lights dimmed. Warm blanket given. Pillow given. 15:45 No provider procedures requiring assistance completed. ko1 17:54 IV discontinued, intact, bleeding controlled, No redness/swelling at site. Pressure ko1 dressing applied. Administered Medications: 15:31 Drug: carvedilol 25 mg Route: PO; ko1 15:31 Drug: cloNIDine 0.1 mg Route: PO; ko1 17:30 Drug: Potassium Chloride 20 mEq Route: PO; ko1 Medication: 15:45 VIS not applicable for this client. ko1 Outcome: 17:41 Discharge ordered by . ms3 17:54 Discharged to home via wheelchair, with family. ko1 17:54 Condition: stable 17:54 Discharge instructions given to patient, family, Instructed on discharge instructions, follow up and referral plans. medication usage, Demonstrated understanding of instructions, follow-up care, medications. 18:01 Patient left the ED. ko1 Signatures: Dispatcher [employer] EDVT Mariano Maher tm3 Olga Austin, RN RN Nestor Cabrera DO DO ms3 Anu Pritchett, RN RN ko1
[2022-09-15 19:06] VITALS: TEMP 98.9
[2022-09-15 19:12] VITALS: BP 172/103; O2SAT 100
--- NOTE | 2022-09-17 18:11 | EKG ---
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
== END 2022-09-15 18:01 | disposition home or self-care (01) ==
LOC: ER 14:31
DX: R07.89 Other chest pain (principal); E87.6 Hypokalemia; I12.9 Hypertensive chronic kidney disease with stage 1 through stage 4 chronic kidney disease, or unspecified chronic kidney disease; N18.4 Chronic kidney disease, stage 4 (severe); Z99.2 Dependence on renal dialysis; Z88.5 Allergy status to narcotic agent; Z88.8 Allergy status to other drugs, medicaments and biological substances
CPT/HCPCS: 36415; 71045; 80048; 80076; 83735; 84484; 85025; 93005; 99285